=== PATIENT | female | born 1950 | race Caucasian/White ===

== ENCOUNTER → 2016-11-05 | Outpatient (CLI) | payer OTHER ==
[~2016-11-05] VITALS: Ht 152.4 cm; Wt 105.0 kg
[~2016-11-05] MED LIST: ADVIN25/60 INH; ALBINS/ INH; ALOEMIS NAE; ASPI81TA21 PO; ATOR10TA88 PO; AZIT250T PO; AZIT500T PO; CETI10TA10 PO; CMBIN INH; DIAZ5TAB3 PO; FLNIN NAE; GARLTAB3 PO; HYG/25 PO; LEVO100T7 PO; LORA-741 PO; METO50TA7 PO; NYSTATIN POWDER TOP; NYSTCRE11 TOP; OMEG10007 PO; OMEGCAP2 PO; OXGN; PERP1TAB11 PO; PRD20 PO; SNQ/25 PO; TIOTCAP INH; VILA1TAB2 PO; ZNTT/150 PO
[2016-11-05 13:07] VITALS: Ht 152.4 cm; Wt 105.0 kg
--- NOTE | 2016-11-05 13:47 | PAT Medication Instructions ---
"Service Date November 05, 2016. Current Home Medication List Albuterol Sulf (Proventil 0.083% 2.5MG/3ML), 2.5 MG INH Q2H PRN Aspirin Enteric Coated (Ecotrin Or Generic), 81 MG PO QAM Atorvastatin (Lipitor), 10 MG PO HS Azithromycin (Zithromax), 250 MG PO 3XWEEK Cetirizine Hcl (Zyrtec), 10 MG PO QAM Chlorthalidone (Hygroton), 25 MG PO QAM Doxepin (Sinequan), 25 MG PO HS Fish Oil ([place]-3), 1,000 MG PO QAM Fluticasone Prop/Salmeterol (Advair Diskus 250/50 60 Dose), 1 PUFF INH Q12 Fluticasone Propionate (Flonase Nasal [place]), 2 SPRAYS MAXI PRN Ipratropium/Albuterol (Combivent *), 2 PUFFS INH QID PRN for PRN Levothyroxine Sodium (Levothyroxine Sodium), 1 TAB PO QAM Lorazepam (Ativan), 0.5 MG PO HS PRN for RN Metoprolol Succ (Toprol Xl) (Toprol-Xl), 50 MG PO HS Nystatin/Triamcinolone (Mycogen || ), 1 DOSE TOP BID PRN for RN Oxygen (Oxygen), 2 LITERS NA HS Perphenazine (Trilafon), 4 MG PO HS Ranitidine (Zantac), 150 MG PO BID Vilazodone Hcl (Viibryd), 40 MG PO QAM [Garlic], 1 TAB PO QAM [Nystatin Powder], 1 DOSE TOP BID PRN for trousseau consultant Instructions For Your Scheduled Surgery - Continue as directed: Azithromycin (Zithromax), 250 MG PO 3XWEEK - Check with surgeon/epic ambulatory analysts for instructions: Aspirin Enteric Coated (Ecotrin Or Generic), 81 MG PO QAM - Hold the following medications 2 weeks prior to surgery: [Garlic], 1 TAB PO QAM Fish Oil ([place]-3), 1,000 MG PO QAM - Hold the following medications 24 hours prior to surgery: [Nystatin Powder], 1 DOSE TOP BID PRN for RN Nystatin/Triamcinolone (Mycogen || ), 1 DOSE TOP BID PRN for RN - Hold the following medications the morning of surgery: Ranitidine (Zantac), 150 MG PO BID Cetirizine Hcl (Zyrtec), 10 MG PO QAM Chlorthalidone (Hygroton), 25 MG PO QAM - Take the following medications the morning of surgery with a sip of water: Lorazepam (Ativan), 0.5 MG PO HS PRN for RN Levothyroxine Sodium (Levothyroxine Sodium), 1 TAB PO QAM Fluticasone Propionate (Flonase Nasal [place]), 2 SPRAYS MAXI PRN Ipratropium/Albuterol (Combivent *), 2 PUFFS INH QID PRN for PRN Fluticasone Prop/Salmeterol (Advair Diskus 250/50 60 Dose), 1 PUFF INH Q12 Albuterol Sulf (Proventil 0.083% 2.5MG/3ML), 2.5 MG INH Q2H PRN (bring with you to hospital morning of surgery) Vilazodone Hcl (Viibryd), 40 MG PO QAM - Take the following medications as scheduled the night before surgery: Ranitidine (Zantac), 150 MG PO BID Oxygen (Oxygen), 2 LITERS NA HS Metoprolol Succ (Toprol Xl) (Toprol-Xl), 50 MG PO HS Lorazepam (Ativan), 0.5 MG PO HS PRN for RN Fluticasone Propionate (Flonase Nasal [place]), 2 SPRAYS MAXI PRN Ipratropium/Albuterol (Combivent *), 2 PUFFS INH QID PRN for PRN Fluticasone Prop/Salmeterol (Advair Diskus 250/50 60 Dose), 1 PUFF INH Q12 Albuterol Sulf (Proventil 0.083% 2.5MG/3ML), 2.5 MG INH Q2H PRN Atorvastatin (Lipitor), 10 MG PO HS Doxepin (Sinequan), 25 MG PO HS' Perphenazine (Trilafon), 4 MG PO HS If you have any questions please call us at [phone] (Angélica Bills PA-C) or [phone] or [phone]"
--- NOTE | 2016-11-05 14:22 | DIAGNOSTIC IMAGING REPORT ---
CHEST PREADMISSION(PA/LAT) CLINICAL HISTORY: Preoperative evaluation. COMPARISON STUDY: Chest radiograph and chest CT December 09, 2013. FINDINGS: Lung volumes are normal. Lungs are clear. There is no pneumothorax or pleural effusion. Cardiac size is normal. Mediastinal contours are normal. There is no evidence of pulmonary edema. IMPRESSION: No acute cardiopulmonary findings. Electronically signed by: Vinny Dobbins M.D. 11/05/2016 2:21 PM Dictated Date/Time: 11/05/2016 2:20 PM
== END | disposition home or self-care (01) ==
LOC: C.RAD 08:00 → C.ACU 12:27 → EDSTATUS 11-26 14:46
PROVIDERS: ATTEND Surgery
DX: Z01.811 Encounter for preprocedural respiratory examination (principal)

== ENCOUNTER 2017-08-05 11:22 | Day surgery (SDC) | payer OTHER ==
[2017-07-23 09:47] VITALS: BMI 43.0
--- NOTE | 2017-07-23 10:32 | PAT Medication Instructions ---
"Service Date Jul 23, 2017. Current Home Medication List Albuterol Sulf (Proventil 0.083% 2.5MG/3ML), 2.5 MG INH Q2H PRN Aspirin Enteric Coated (Ecotrin Or Generic), 81 MG PO QAM Atorvastatin (Lipitor), 10 MG PO HS Azithromycin (Zithromax), 250 MG PO 3XWEEK Cetirizine Hcl (Zyrtec), 10 MG PO QAM Chlorthalidone (Hygroton), 25 MG PO QAM Doxepin (Sinequan), 25 MG PO HS Fish Oil ([place]-3), 1,000 MG PO QAM Fluticasone Prop/Salmeterol (Advair Diskus 250/50 60 Dose), 1 PUFF INH Q12 Fluticasone Propionate (Nasal) (Flonase Allergy Relief), 1 SPRAY MAXI QAM Home O2 Therapy (Oxygen), 2 LITERS NA HS Ipratropium-Albuterol (Combivent Respimat), 1 PUFFS INH QID PRN for SOB/Wheezing Levofloxacin (Levaquin), 750 MG PO UD PRN for RESCUE KIT Levothyroxine Sodium (Levothyroxine Sodium), 1 TAB PO QAM Lorazepam (Ativan), 0.5 MG PO HS PRN for RN Metformin Hcl (Glucophage), 1,000 MG PO BID Metoprolol Succ (Toprol Xl) (Toprol-Xl), 50 MG PO HS Nystatin/Triamcinolone (Mycogen || ), 1 DOSE TOP BID PRN for RN Olopatadine Hydrochloride (Pataday), 1 DROPS OP DAILY Perphenazine (Trilafon), 4 MG PO HS Prednisone (Deltasone), 1 TAB PO UD PRN for RESCUE KIT Ranitidine (Zantac), 150 MG PO BID Vilazodone Hcl (Viibryd), 40 MG PO QAM [Garlic], 1 TAB PO QAM [Nystatin Powder], 1 DOSE TOP BID PRN for manager philosophy Instructions For Your Scheduled Surgery Current Home Medication List -Contact your surgeon and prescriber for instructions: Aspirin Enteric Coated (Ecotrin Or Generic), 81 MG PO QAM -Continue as directed: Prednisone (Deltasone), 1 TAB PO UD PRN for RESCUE KIT Levofloxacin (Levaquin), 750 MG PO UD PRN for RESCUE KIT - Hold the following medications starting now: [Garlic], 1 TAB PO QAM Fish Oil ([place]-3), 1,000 MG PO QAM - Hold the following medications 24 hours prior to surgery: [Nystatin Powder], 1 DOSE TOP BID PRN for RN Nystatin/Triamcinolone (Mycogen || ), 1 DOSE TOP BID PRN for RN - Hold the following medications 48 hours prior to surgery: Metformin Hcl (Glucophage), 1,000 MG PO BID - Hold the following medications the morning of surgery: Cetirizine Hcl (Zyrtec), 10 MG PO QAM Chlorthalidone (Hygroton), 25 MG PO QAM - Take the following medications the morning of surgery with a sip of water: Vilazodone Hcl (Viibryd), 40 MG PO QAM Ranitidine (Zantac), 150 MG PO BID Olopatadine Hydrochloride (Pataday), 1 DROPS OP DAILY Levothyroxine Sodium (Levothyroxine Sodium), 1 TAB PO QAM Lorazepam (Ativan), 0.5 MG PO HS PRN for RN (if needed) Ipratropium-Albuterol (Combivent Respimat), 1 PUFFS INH QID PRN for SOB/ Wheezing (if needed, and bring it with you to the hospital) Fluticasone Prop/Salmeterol (Advair Diskus 250/50 60 Dose), 1 PUFF INH Q12 Fluticasone Propionate (Nasal) (Flonase Allergy Relief), 1 SPRAY MAXI QAM Azithromycin (Zithromax), 250 MG PO 3XWEEK Albuterol Sulf (Proventil 0.083% 2.5MG/3ML), 2.5 MG INH Q2H PRN (if needed) - Take the following medications as scheduled the night before surgery: Ranitidine (Zantac), 150 MG PO BID Perphenazine (Trilafon), 4 MG PO HS Olopatadine Hydrochloride (Pataday), 1 DROPS OP DAILY Metoprolol Succ (Toprol Xl) (Toprol-Xl), 50 MG PO HS Lorazepam (Ativan), 0.5 MG PO HS PRN for RN (if needed) Home O2 Therapy (Oxygen), 2 LITERS NA HS Ipratropium-Albuterol (Combivent Respimat), 1 PUFFS INH QID PRN for SOB/ Wheezing (if needed) Fluticasone Prop/Salmeterol (Advair Diskus 250/50 60 Dose), 1 PUFF INH Q12 Atorvastatin (Lipitor), 10 MG PO HS Doxepin (Sinequan), 25 MG PO HS Albuterol Sulf (Proventil 0.083% 2.5MG/3ML), 2.5 MG INH Q2H PRN (if needed) If you have any questions please call us at [phone] or [phone] or [phone]"
[~2017-08-05] VITALS: Ht 152.4 cm; Wt 100.2 kg
[~2017-08-05 11:22] MED LIST changes: -ALOEMIS NAE; +ATOR10TA82 PO; -ATOR10TA88 PO; +ATROPINE SULFATE 0.1 MG/ML 5ML SYR IV PRN; -AZIT500T PO; +CLINDAMYCIN IV 900 MG in DEXTROSE 5% 50ML IV SCH; -CMBIN INH; -DIAZ5TAB3 PO; +EpHEDrine SULFATE INJ 50 MG/ML AMP IV PRN; +FENTANYL CITRATE INJ 50 MCG/1 ML 2 ML VIAL IV PRN; -FLNIN NAE; +FLUT0.15 NAE; +HYDROmorphone INJ 1 MG/ML SYR IV PRN; +IPRA1AER2 INH; +LACTATED RINGER'S 1000ML 1,000 ML IV SCH; +LEVO1TAB35 PO; +METF1000 PO; -METO50TA7 PO; +METO50TA8 PO; -OMEGCAP2 PO; +ONDANSETRON INJ 2 MG/ML 2 ML VIAL IV PRN; -PERP1TAB11 PO; +PERP4TAB37 PO; -PRD20 PO; +PRED-603 PO; +PTDOPS OP; +RANI150T85 PO; -TIOTCAP INH; -ZNTT/150 PO
[2017-08-05 12:00] VITALS: BP 149/88; PULSE 97; TEMP 36.8; O2SAT 95; Ht 152.4 cm; Wt 100.2 kg
[2017-08-05] MEDS ORDERED: PROPOFOL IV EMULSION 10 MG/ML 20 ML VIAL IV ONE (13:42)
[2017-08-05] MEDS ORDERED: LIDOCAINE HCL 2% 2 ML VIAL (20MG/ML) ONE (13:42)
[2017-08-05] MEDS ORDERED: MIDAZOLAM HCL 1 MG/ML 2ML VIAL ONE (13:43)
[2017-08-05] MEDS ORDERED: FENTANYL CITRATE INJ 50 MCG/1 ML 2 ML VIAL ONE ×3 (13:43→16:54)
[2017-08-05] MEDS ORDERED: NEOSTIGMINE METHYLSULFATE 5 MG/5 ML SYR ONE (14:34)
[2017-08-05] MEDS ORDERED: ROCURONIUM BROMIDE 10 MG/ML 5 ML VIAL IV ONE (14:34)
[2017-08-05] MEDS ORDERED: GLYCOPYRROLATE INJ 0.2 MG/ML VIAL ONE ×2 (14:34)
--- NOTE | 2017-08-05 14:39 | History & Physical Bridge Note ---
H&P Re-Evaluation Bridge Note: I have examined the patient, reviewed the History & Physical and in the interval since the performance of the History & Physical I have noted the following changes of clinical significance: No changes noted
[2017-08-05] MEDS ORDERED: BUPIVACAINE 0.5 % 5 MG/1 ML MPF 30ML VIAL ONE (14:50)
[2017-08-05] MEDS ORDERED: PHENYLEPHRINE HCL INJ 10 MG/ML VIAL ONE (15:06)
[2017-08-05] MEDS ORDERED: ONDANSETRON INJ 2 MG/ML 2 ML VIAL ONE (15:13)
[2017-08-05] MEDS ORDERED: DEXAMETHASONE SOD INJ 4 MG/ML VIAL ONE (15:13)
[2017-08-05] MEDS ORDERED: EpHEDrine SULFATE INJ 50 MG/ML AMP ONE (15:25)
[2017-08-05] MEDS ORDERED: SODIUM CHLORIDE 0.9% 1000ML 1,000 ML IV SCH (16:20)
--- NOTE | 2017-08-05 16:20 | [facility] Post Operative Brief Note ---
Immediate Operative Summary Operative Date Aug 05, 2017. Pre-Operative Diagnosis Left inguinal hernia Post-Operative Diagnosis same as preop Procedure(s) Performed Left Inguinal Hernia repair with mesh Surgeon DR Rodriguez Uat Tester Surgeon(s) Francesca Tucker PA-C Estimated Blood Loss 5 ml Findings Consistent with Post-Op Diagnosis Specimens none per surgeon Drains None Anesthesia Type General Complication(s) none Disposition Disposition: Recovery Room / PACU
--- NOTE | 2017-08-05 16:24 | Discharge Instructions ---
Discharge Instructions Date of Service Aug 05, 2017. Admission Reason for Admission: Left Inguinal Hernia Discharge Discharge Diagnosis / Problem: Same Discharge Goals Goal(s): Decrease discomfort Activity Recommendations Activity Limitations: per Instructions/Follow-up section Lifting Limitations: no more than 10 pounds (for 6 weeks) Shower/Bathe: tomorrow (shower only) . Instructions / Follow-Up Instructions / Follow-Up ACTIVITY RECOMMENDATIONS: * Walk as much as possible. * No heavy lifting (>10 lbs.) for 2 weeks. SPECIAL CARE INSTRUCTIONS: * Ice to hernia repair site on and off until bedtime tonight. * May shower in 24 hours. Let water run over area and pat dry. * Leave steri strips on for one week. * Call the surgeon's office with any questions or concerns - (ex. temperature higher than 101 degrees F, excessive bleeding or pain). MEDICATIONS: Resume previous medications unless instructed otherwise by your surgeon. * Ibuprofen 600 mg every 6 hours with food * Percocet 1 every 4 hours, as needed for pain FOLLOW UP VISIT: If not already scheduled, please call the office to schedule a two week follow- up appointment. Office number Current Hospital Diet Patient's current hospital diet: Discharge Diet Recommended Diet: Diabetes Type 2 Diet Procedures Procedures Performed: Left Inguinal Hernia repair with mesh Pending Studies Studies pending at discharge: no Medical Emergencies . Who to Call and When: Medical Emergencies: If at any time you feel your situation is an emergency, please call 911 immediately. . Non-Emergent Contact Non-Emergency issues call your: Primary Care Provider, Surgeon Call Non-Emergent contact if: your pain is worsening, wound has increased redness, wound has increased pain . "Provider Documentation" section prepared by Fredo Rodriguez. . VTE Core Measure Inpt VTE Proph given/why not?: Treatment not indicated
[2017-08-05] MEDS ORDERED: ONDANSETRON INJ 2 MG/ML 2 ML VIAL IV PRN (16:30)
[2017-08-05] MEDS ORDERED: OXYCODONE/ACETAMINOPHEN 5-325 TAB PO PRN (16:30)
[2017-08-05] MEDS ORDERED: MoRPHine SULFATE 4 MG/ML 1 ML CARP\\VIAL IV PRN (16:30)
[2017-08-05] MEDS ORDERED: METOPROLOL TARTRATE 1 MG/ML VIAL ONE (16:53)
[2017-08-05] MEDS ORDERED: METOPROLOL TARTRATE 1 MG/ML VIAL IV STA (17:01)
--- NOTE | 2017-08-05 17:05 | Anesthesiology Progress Note ---
Anesthesia Post Op Note Date & Time Aug 05, 2017 at 17:05 Vital Signs Pain Intensity: 2 Vital Signs Past 12 Hours Date Time Temp Pulse Resp B/P (MAP) Pulse Ox O2 Delivery O2 Flow Rate FiO2 08/05/17 16:58 100 129/84 08/05/17 16:55 101 20 129/84 96 Oxymask 4 08/05/17 16:45 101 15 126/82 96 Oxymask 10 08/05/17 16:38 208/107 08/05/17 16:37 37.6 106 16 221/132 97 Oxymask 10 08/05/17 12:00 36.8 97 20 149/88 (108) 95 Room Air
[2017-08-05 17:35] VITALS: BP 118/86; PULSE 84; TEMP 37; O2SAT 97
[2017-08-05 17:55] VITALS: BP 127/67; PULSE 91; TEMP 37.3; O2SAT 98
[2017-08-05 18:25] VITALS: BP 129/76; PULSE 90; TEMP 37; O2SAT 97
[2017-08-05 18:55] VITALS: BP 141/59; PULSE 96; TEMP 36.9; O2SAT 92
--- NOTE | 2017-08-05 20:26 | OPERATIVE REPORT ---
DATE OF OPERATION: 08/05/2017 PREOPERATIVE DIAGNOSIS: Left inguinal hernia. POSTOPERATIVE DIAGNOSIS: Left direct inguinal hernia. PROCEDURE: Repair of left direct inguinal hernia with mesh. SURGEON: Fredo Rodriguez MD. GROOVER RUNNER: Francesca Tucker PA-C. FINDINGS: The patient had a direct inguinal hernia that was small, but it did involve the entire floor of the canal. There was no indirect component. TECHNIQUE: The patient was given a general anesthetic and the abdominal pannus was taped superiorly. The area was then prepped and draped in the usual sterile fashion. Left inguinal incision was made. It was carried down through multiple layers of adipose tissue until the external oblique could be identified. The external ring was identified. I could insert my finger under the external oblique fascia through the external ring and open the external oblique superolaterally. The hernia protruding tissue was easily identified. It was away from the ott of the canal and the floor of the canal. The round ligament was identified, clamped proximally, distally and divided. The ilioinguinal nerve was seen. That was also electively divided to avoid for chronic pain syndrome. The hernia sac and preperitoneal fat were placed back into their anatomic position and the transversalis was closed over them using a running 0 PDS. A piece of mesh was then placed in the floor of the canal and sewn to the anterior surface of the internal oblique medially, tissue over the pubic bone inferiorly and to the inguinal ligament. I could not identify the base of the inguinal ligaments oversewn to approximately the mid portion due to the patient's body habitus. That made it then more difficult to close the external oblique over the mesh, but that was accomplished for the proximal two-thirds of the external oblique. The deep subcutaneous tissue was then closed using a running 2-0 Vicryl. The superficial subcutaneous tissue was closed with running 3-0 Vicryl and skin was closed with 4-0 Monocryl in a running subcuticular fashion. Skin was anesthetized with 0.5% Marcaine. The estimated blood loss was 10 mL. Sponge, needle and instrument counts were correct prior to closure. The patient tolerated the surgical procedure without complication and was transferred to recovery. I attest to the content of the Intraoperative Record and any orders documented therein. Any exception s are noted below.
== END 2017-08-05 19:10 | disposition home or self-care (01) ==
LOC: C.ACU 11:22
PROVIDERS: ATTEND Surgery
DX: K40.90 Unilateral inguinal hernia, without obstruction or gangrene, not specified as recurrent (principal); E11.22 Type 2 diabetes mellitus with diabetic chronic kidney disease; I12.9 Hypertensive chronic kidney disease with stage 1 through stage 4 chronic kidney disease, or unspecified chronic kidney disease; N18.3 Chronic kidney disease, stage 3 (moderate); I25.10 Atherosclerotic heart disease of native coronary artery without angina pectoris; J44.9 Chronic obstructive pulmonary disease, unspecified; E66.01 Morbid (severe) obesity due to excess calories; I25.2 Old myocardial infarction; Z87.891 Personal history of nicotine dependence; Z88.6 Allergy status to analgesic agent; Z88.2 Allergy status to sulfonamides; Z88.1 Allergy status to other antibiotic agents; Z79.82 Long term (current) use of aspirin; Z79.899 Other long term (current) drug therapy; Z96.641 Presence of right artificial hip joint; Z98.41 Cataract extraction status, right eye; Z98.42 Cataract extraction status, left eye

== ENCOUNTER 2019-11-27 06:52 | Inpatient (IN) ==
--- NOTE | 2019-11-21 14:39 | Anesthesiology Consultation ---
Date of Service November 21, 2019 Assessment & Plan (1) Encounter for pre-operative examination: Per nursing phone assessment on 11/17: Travel screen negative. No known COVID-19 positive contacts. No current COVID-19 related symptoms. Patient scheduled for preop protocol COVID-19 testing 11/24. Awaiting results. - Check BSG AM DOS - S/P left inguinal hernia repair: Grade view 1, MAC#3, ETT 7.0 at [facility] - Preop labs out of date: will order CBC, BMP, coags for AM DOS Chart Review Chart Review: Acceptable Risk for Surgery (pending preop labs AM DOS + COVID test results) and Patient NOT seen in Pre Admission Testing History Surgery Operation Date: 11/27/19 08:40 Proposed Procedures p Left Lateral Total Hip Arthroplasty - Srini Mathur DO Height/Weight Height: 5 ft Weight: 89.9 kg Allergies Allergy/AdvReac Type Severity Reaction Status Date / Time Sulfa (Sulfonamide Allergy Unknown face Verified 11/18/19 15:13 Antibiotics) tongue lips swelling,HEADACHE amoxicillin AdvReac Unknown YEAST Verified 11/18/19 15:13 INFECTION clavulanic acid AdvReac Unknown YEAST Verified 11/18/19 15:13 INFECTION codeine AdvReac Unknown N/V Verified 11/18/19 15:13 Medications Home Medications Medication Instructions Recorded Confirmed Last Taken Vibryd 40 mg PO QAM 08/14/19 11/18/19 Unknown albuterol sulfate 2.5 mg INHALATION UD PRN 08/14/19 11/18/19 Unknown aspirin [Aspir-81] 81 mg PO DAILY 08/14/19 11/18/19 Unknown atorvastatin 10 mg PO HS 08/14/19 11/18/19 Unknown cetirizine 10 mg PO QAM 08/14/19 11/18/19 Unknown chlorthalidone 25 mg PO QAM 08/14/19 11/18/19 Unknown doxepin 25 mg PO HS 08/14/19 11/18/19 Unknown erythromycin 250 mg PO 3XWK 08/14/19 11/18/19 Unknown fluticasone propion-salmeterol 1 inh INHALATION BID 08/14/19 11/18/19 Unknown [Advair Diskus] fluticasone propionate 2 spray INTRANASAL QAM 08/14/19 11/18/19 Unknown garlic 1,000 mg PO DAILY 08/14/19 11/18/19 Unknown ipratropium-albuterol [Combivent 1 puff INHALATION UD PRN 08/14/19 11/18/19 Unknown Respimat] levofloxacin [Levaquin] 750 mg PO UD PRN 08/14/19 11/18/19 Unknown levothyroxine 125 mcg PO QAM 08/14/19 11/18/19 Unknown lorazepam 0.5 mg PO HS PRN 08/14/19 11/18/19 Unknown metformin 1,000 mg PO BID 08/14/19 11/18/19 Unknown metoprolol succinate 50 mg PO HS 08/14/19 11/18/19 Unknown omega 7-gfg-[id number]-fish oil [Fish Oil] 1 cap PO DAILY 08/14/19 11/18/19 Unknown perphenazine 2 mg PO HS 08/14/19 11/18/19 Unknown prednisone 20 mg PO UD PRN 08/14/19 11/18/19 Unknown trazodone 50 mg PO HS 08/14/19 11/18/19 Unknown famotidine 20 mg PO BID 08/19/19 11/18/19 Unknown Past Medical History Medical History (Updated 11/21/19 @ 14:45 by Angélica Bills) Acid reflux well controlled Anxiety and depression Arthritis Asthma mild, "well controlled and stable", rare inhaler use Degenerative disc disease Diabetes Dyslipidemia Emphysema/COPD stable Fatty liver History of heart attack "mild" (1996)- medically managed Hypertension Hypothyroidism Kidney disease stage III Nocturnal hypoxemia 2L O2 HS Obesity Sciatica Thyroid enlarged no dysphagia Past Family History Family History Mother Family history of diabetes mellitus Aunt Family history of diabetes mellitus Son Family history of colon cancer Past Surgical History Surgical History History of cardiac cath FOLLOWING HEART ATTACK, NO FINDINGS 1996 History of colonoscopy History of hernia repair History of hysterectomy History of left cataract surgery History of right cataract surgery History of right hip replacement Past Anesthesia History No Family Hx of Anesthesia Complications (except daughter (PONV)) and Other (desaturated with 2012 colonoscopy requiring O2 per records, has since been diagnosed with nocturnal hypoxemia (wears 2L O2 HS)) Social History Smoking Status: Former smoker tobacco type: cigarettes Hx Alcohol Use: No Hx Substance Use: No Testing Laboratory Results 08/19/19 WBC 7.59 H/H 14.7/41.5 PLATELETS 206 SODIUM POTASSIUM CHLORIDE CO2 BUN CREATININE GLUCOSE PT 11.1 PTT 25.5 INR 1.1 HGBA1C 6.0% 08/21/19 SODIUM 142 POTASSIUM 3.5 CHLORIDE 94 CO2 32 BUN 15 CREATININE 1.2 GLUCOSE 101 Electrocardiogram Date: 08/19/19 Findings: + NSR @ (74) and + no change from (January 08, 2014) Nonspecific ST abnormality. Chest X-Ray Date: 08/19/19 Findings: + NAD Chronic interstitial thickening is similar to previous. Echocardiogram Date: 12/10/13 EF: >70% RWMA: + none Other Findings: + LVH (Mild/concentric) Sinus tachycardia was present at 115 bpm. Left ventricular cavity size is small. Left ventricle is hyperdynamic. Stress Test Date: 01/02/17 Type: DSE Type: DSE Resting EF: 50 to 55% Resting LV Function: normal Resting RWMA: + none Valvular Disease: no significant valvular disease Stress EKG showed no evidence of ischemia. DSE is normal without left ventricular wall motion abnormalities or inducible ischemia. MPHR= 108%. Grade 1 diastolic dysfunction.
--- NOTE | 2019-11-25 07:28 | History & Physical Report ---
Date of Service November 25, 2019 Assessment & Plan (1) Osteoarthritis of left hip: We will proceed with a left lateral total hip arthroplasty. Postoperatively she will be started on aspirin for DVT prophylaxis and kept overnight in the hospital for postoperative medical management. She plans to use energy physical therapy upon discharge. Elsy is a low risk for hip replacement surgery without any major comorbidities. Present on Admission?: Yes History of Present Illness Chief Complaint: Primary osteoarthritis of the left hip Primary Care Provider: Dominga Barron DO Elsy is a pleasant 68-year-old female who is been having a several year history of increasing left hip and groin pain. X-rays and clinical examination have been diagnostic for advanced osteoarthritis of the left hip. She does have a history of a right hip replacement done by Dr. Ball in 2003. She has done well with that. She has elected to proceed with a left lateral total hip arthroplasty. Allergies Allergy/AdvReac Type Severity Reaction Status Date / Time Sulfa (Sulfonamide Allergy Severe face Verified 11/24/19 11:58 Antibiotics) tongue lips swelling,HEADACHE amoxicillin AdvReac Intermediate YEAST Verified 11/24/19 11:58 INFECTION clavulanic acid AdvReac Intermediate YEAST Verified 11/24/19 11:58 INFECTION codeine AdvReac Mild N/V Verified 11/24/19 11:58 Home Medications Home Medications Medication Instructions Recorded Confirmed Type Vibryd 40 mg PO QAM 08/14/19 11/24/19 History albuterol sulfate 2.5 mg INHALATION UD PRN 08/14/19 11/24/19 History aspirin [Aspir-81] 81 mg PO DAILY 08/14/19 11/24/19 History atorvastatin 10 mg PO HS 08/14/19 11/24/19 History cetirizine 10 mg PO QAM 08/14/19 11/24/19 History chlorthalidone 25 mg PO QAM 08/14/19 11/24/19 History doxepin 25 mg PO HS 08/14/19 11/24/19 History erythromycin 250 mg PO 3XWK 08/14/19 11/24/19 History fluticasone propion-salmeterol 1 inh INHALATION BID 08/14/19 11/24/19 History [Advair Diskus] fluticasone propionate 2 spray INTRANASAL QAM 08/14/19 11/24/19 History garlic 1,000 mg PO DAILY 08/14/19 11/24/19 History ipratropium-albuterol [Combivent 1 puff INHALATION UD PRN 08/14/19 11/24/19 History Respimat] levofloxacin [Levaquin] 750 mg PO UD PRN 08/14/19 11/24/19 History levothyroxine 125 mcg PO QAM 08/14/19 11/24/19 History lorazepam 0.5 mg PO HS PRN 08/14/19 11/24/19 History metformin 1,000 mg PO BID 08/14/19 11/24/19 History metoprolol succinate 50 mg PO HS 08/14/19 11/24/19 History omega 5-xhg-nus-fish oil [Fish Oil] 1 cap PO DAILY 08/14/19 11/24/19 History perphenazine 2 mg PO HS 08/14/19 11/24/19 History prednisone 20 mg PO UD PRN 08/14/19 11/24/19 History trazodone 50 mg PO HS 08/14/19 11/24/19 History famotidine 20 mg PO BID 08/19/19 11/24/19 History Past Med/Surg History Medical History Acid reflux well controlled Anxiety and depression Arthritis Asthma mild, "well controlled and stable", rare inhaler use Degenerative disc disease Diabetes Dyslipidemia Emphysema/COPD stable Fatty liver History of heart attack "mild" (1996)- medically managed Hypertension Hypothyroidism Kidney disease stage III Nocturnal hypoxemia 2L O2 HS Obesity Sciatica Thyroid enlarged no dysphagia Surgical History History of cardiac cath FOLLOWING HEART ATTACK, NO FINDINGS 1996 History of colonoscopy History of hernia repair History of hysterectomy History of left cataract surgery History of right cataract surgery History of right hip replacement Family History Mother Family history of diabetes mellitus Aunt Family history of diabetes mellitus Son Family history of colon cancer Social History Preferred Language: Montene[place]in Communication Ability: Effective Pockets And Pieces Necktie Operator Required: No Beliefs That Will Affect Care: None Current Living Situation: Alone Feels Safe at Home: Yes Smoking Status: Former smoker Tobacco Type: cigarettes ; Second Hand Exposure: No ; Hx Alcohol Use: No Hx Substance Use: No Review of Systems Review of Systems: All systems reviewed & are unremarkable except as noted in HPI & below Physical Exam Constitutional: WD/WN, vitals as above Eyes: PERRL, conjunctivae normal, anicteric sclerae ENMT: external ear and nose normal, oropharynx normal Neck: trachea midline, no thyromegaly Respiratory: normal respiratory effort Cardiovascular: RRR, no murmur, no edema Gastrointestinal (Abdomen): normal bowel sounds, soft, nontender, no hepatosplenomegaly Musculoskeletal: Physical examination of the left hip reveals decreased range of motion with flexion, internal and external rotation. There is significant groin pain with forced internal rotation of the hip his leg lengths are essentially equal. Psychiatric: A+Ox3, euthymic affect Results & Data Results & Data ([facility]) Diagnostic Findings Radiographs of the left hip and pelvis demonstrate advanced osteoarthritis with joint space narrowing osteophyte formation and [id number]-[id number] articulation. PG Care Time/CCT Total # of Minutes Spent Total Time Spent with Patient: Total time spent is greater than 50% in coordination of care (as documented) at patient's floor/unit and/or counseling patient: Coding Level of Care Code 60499 Initial Inpt Care Lvl 3 Diagnoses Osteoarthritis of left hip M16.12
--- NOTE | 2019-11-27 06:51 | History & Physical Bridge Note ---
Date of Service November 27, 2019 History & Physical Bridge Note I have examined the patient, reviewed the History & Physical and in the interval since the performance of the History & Physical I have noted the following changes of clinical significance: no changes noted
[~2019-11-27 06:52] MED LIST changes: +ACETAMINOPHEN 500 MG TAB PO SCH; -ADVIN25/60 INH; -ALBINS/ INH; -ASPI81TA21 PO; -ATOR10TA82 PO; -ATROPINE SULFATE 0.1 MG/ML 5ML SYR IV PRN; -AZIT250T PO; +BUPIVACAINE 0.5 % 5 MG/1 ML PF 10ML VIAL ONE; +CEFAZOLIN 2000MG 2,000 MG/15 ML SYR IV SCH; -CETI10TA10 PO; -CLINDAMYCIN IV 900 MG in DEXTROSE 5% 50ML IV SCH; -EpHEDrine SULFATE INJ 50 MG/ML AMP IV PRN; +FAMOTIDINE 20 MG TAB PO SCH; -FENTANYL CITRATE INJ 50 MCG/1 ML 2 ML VIAL IV PRN; -FLUT0.15 NAE; +GABAPENTIN 300 MG CAP PO SCH; -GARLTAB3 PO; -HYDROmorphone INJ 1 MG/ML SYR IV PRN; -HYG/25 PO; -IPRA1AER2 INH; -LACTATED RINGER'S 1000ML 1,000 ML IV SCH; -LEVO100T7 PO; -LEVO1TAB35 PO; -LORA-741 PO; +LR 60ML/HR IV SCH; -METF1000 PO; -METO50TA8 PO; -NYSTATIN POWDER TOP; -NYSTCRE11 TOP; -OMEG10007 PO; -ONDANSETRON INJ 2 MG/ML 2 ML VIAL IV PRN; -OXGN; -PERP4TAB37 PO; -PRED-603 PO; -PTDOPS OP; -RANI150T85 PO; +ROPIVACAINE 0.5% HCL/PF 150 MG, BUPIVACAINE 0.5% MPF 30 ML, EPINEPHrine 30MG/30ML (OR U... INSTIL SCH; -SNQ/25 PO; +TRANEXAMIC ACID 1,000 MG **IV Intra-op IV SCH; +TRANEXAMIC ACID 1,000 MG **IV Pre-op IV SCH; -VILA1TAB2 PO; +dexAMETHasone 4 MG TAB PO SCH
[2019-11-27] MEDS ORDERED: PROPOFOL IV EMULSION 10 MG/ML 20 ML VIAL IV ONE (07:03)
[2019-11-27] MEDS ORDERED: LIDOCAINE HCL 2% 2 ML VIAL/AMP(20MG/ML) INFIL ONE (07:03)
[2019-11-27] MEDS ORDERED: MIDAZOLAM HCL 1 MG/ML 2ML VIAL ONE (07:03)
[2019-11-27] MEDS ORDERED: fentaNYL citrate 100 MCG/2 ML VIAL ONE (07:04)
[2019-11-27 07:26] LABS: Basophils # (auto) 0.03 K/uL (0-0.2); Basophils % (auto) 0.4 %; Eosinophils # (auto) 0.33 K/uL (0-0.5); Eosinophils % (auto) 4.1 %; Hematocrit (blood only) 42.4 % (37-47); Hemoglobin 14.9 g/dL (12.0-16.0); Immature Granulocytes # (auto) 0.02 K/uL (0.00-0.02); Immature Granulocytes % (auto) 0.3 %; Lymphocytes # (auto) 2.79 K/uL (1.2-3.4); Lymphocytes % (auto) 35.1 %; Mean Corpuscular Hemoglobin 31.4 pg (25-34); Mean Corpuscular Volume 89.5 fL (80-100); Monocytes % (auto) 8.8 %; Neutrophils # (auto) 4.09 K/uL (1.4-6.5); Neutrophils % (auto) 51.3 %; Platelet Count 220 K/uL (130-400); RDW Coefficient of Variation 13.2 % (11.5-14.5); RDW Standard Deviation 43.3 fL (36.4-46.3); Red Blood Count 4.74 M/uL (4.2-5.4); White Blood Count 7.96 K/uL (4.8-10.8)
[2019-11-27 07:30] LABS: Mean Corpuscular Hgb Conc 35.1 g/dL (32-36)
[2019-11-27 07:38] LABS: Partial Thromboplastin Ratio 0.9; Partial Thromboplastin Time 25.1 Seconds (21.0-31.0); Prothrombin Time 10.9 Seconds (9.0-12.0)
[2019-11-27 07:45] LABS: BUN Creatinine Ratio 9.2 (10-20); Calcium 10.2 mg/dl (8.5-10.1); Creatinine Clr Calc Pharmacy 43.5 ml/min; Est GFR (African American) 52.3; Est GFR (Non-African American) 45.2; Potassium 3.2 mmol/L (3.5-5.1)
[2019-11-27] MEDS ORDERED: ORTHO JOINT ANESTHETIC ONE (08:23)
[2019-11-27] MEDS ORDERED: ATROPINE SULFATE 0.1 MG/ML 10ML SYR IV PRN (08:56)
[2019-11-27] MEDS ORDERED: ePHEDrine sulfate 50 MG/ML AMP IV PRN (08:56)
--- NOTE | 2019-11-27 10:04 | XRay Report ---
XR hip LT 1V CLINICAL HISTORY: LT HIP FILM TO BE DONE IN OR 6/CHECK FOR PROPER FIT COMPARISON STUDY: None. FINDINGS: Intraoperative study for a left total hip arthroplasty demonstrates an acetabular cup and a femoral spacer. The hardware appears intact. No fracture or dislocation. IMPRESSION: Intraoperative study for a left total hip arthroplasty. ACT 112: Negative or not required by law. Electronically signed by: Pablo Gordon M.D. 11/27/2019 10:03 AM
--- NOTE | 2019-11-27 10:35 | Operative Report ---
PG Post Operative Report Pre & Post Diagnosis Operation Date: 11/27/19 08:40 Pre-Op Diagnosis: LEFT HIP DEGENERATIVE JOINT DISEASE Post-Op Diagnosis: LEFT HIP DEGENERATIVE JOINT DISEASE I identified the patient and participated in the time-out.: Yes Procedure Operation Date: 11/27/19 08:40 Actual Procedures p Left Lateral Total Hip Arthroplasty(Left) - Srini Mathur DO Surgeon Srini Mathur DO [employer] Srini Bonner PAC Estimated Blood Loss 250 Findings Consistent with Post-Op Diagnosis Specimens Left femoral head Complications none Disposition Disposition: Recovery Room Indications Lara is a pleasant 68-year-old female who presented my office with complaints of chronic increasing left hip and groin pain. X-rays and clinical examination were diagnostic for osteoarthritis of the left hip. After failing conservative treatment, she elected proceed with a left total hip arthroplasty. Description of Procedure Implants used I used a Biomet Taperloc total hip arthroplasty system with a size 9 high offset micro Taperloc stem, a 48 mm G7 cup with a 25mm screw, an E1 polyethylene liner, a 32 mm ceramic head with a 0 neck. Arnold arrived at the hospital for the above procedure. She was seen in the preoperative holding area and the operative extremity was identified and signed. She was given a spinal anesthetic, a preoperative antibiotic, and TXA. She was then taken back to the operating room and laid on the table in the supine position. She was given basic sedation. She was then placed in a lateral decubitus position. The hip was then prepped and draped in sterile fashion. A timeout was done and the patient and the operative extremity was properly identified. A lateral approach was used. A curvilinear incision was made directly over the greater trochanter. Dissection was taken down to the fascia. The fascia was incised. The anterior third of the abductors were then tenotomized off the greater trochanter. The capsule was excised. The femoral neck was exposed. The femoral neck was then resected. And the femoral head was removed. The acetabulum was then exposed. Time was spent doing a complete circumferential labral release. Sequential reaming of the acetabulum up to a size 47 reamer was done. A 48 mm G7 cup was then impacted into place. A single 25 mm screw was placed. The wound was then irrigated. The surrounding soft tissues were then injected with 100 cc of an orthopedic pain control cocktail. A 32 mm liner was then snapped into place. The proximal femur was then exposed. Sequential broaching up to a size 9 broach was done. A high offset neck and a 0 head were then attached. The hip was then reduced. A single flat plate fluoroscopic image showed the femoral implant to be anatomic size. The hip was then dislocated. The broach was removed. The final size 9 high offset micro-stem was then impacted into place. A 32 mm ceramic head with a 0 neck was then impacted onto the femoral stem. The hip was then reduced. The hip was brought through a full range of motion and felt to be stable. The wound was then irrigated and a 3-minute Betadine lavage was done. The abductors were then tenodesed back to the greater trochanter with transosseous FiberWire sutures and side to side sutures. The IT band was then repaired. The deep fat layer was closed with #1 Vicryl. Skin was closed with 2-0 Vicryl and nahum. A Sumi VAC dressing was placed. She was then transferred to a hospital bed and taken to the postanesthesia care unit in stable condition. She tolerated the procedure well. Srini Bonner PA-C, was present for the entire procedure. He was critical for patient positioning, prepping, draping, retraction exposure, wound closure and application of sterile dressing. I attest to the content of the Intraoperative Record and any orders documented therein. Any exceptions are noted below.
--- NOTE | 2019-11-27 11:27 | XRay Report ---
AP PELVIS, CROSSTABLE LATERAL LEFT HIP History: Left total hip arthroplasty. Degenerative arthritis. Postop. FINDINGS: The patient is status post a left total hip arthroplasty. The hardware is intact. No fractu re or dislocation. Skin nahum are in place. Prior right total hip arthroplasty. IMPRESSION: Left total hip arthroplasty. No evidence for hardware complication. ACT 112: Negative or not required by law. Electronically signed by: Pablo Gordon M.D. 11/27/2019 11:25 AM
[2019-11-27] MEDS ORDERED: ALBUMIN 5% 250 ML IV SCH (12:45)
[2019-11-27] MEDS ORDERED: ALBUMIN HUMAN 5% 12.5 GM/250 ML VIAL IV ONE (12:46)
[2019-11-27] MEDS ORDERED: HYDROmorphone INJ 0.5 MG/0.5 ML SYR IV PRN (14:17)
[2019-11-27] MEDS ORDERED: IPRATROPIUM BROMIDE/ALBUTEROL respimat INH INH PRN (14:17)
[2019-11-27] MEDS ORDERED: levoFLOXacin 750 MG TAB PO PRN (14:17)
[2019-11-27] MEDS ORDERED: bisacodyL 10 MG SUPP PR PRN (14:17)
[2019-11-27] MEDS ORDERED: METOCLOPRAMIDE HCL INJ 5 MG/ML 2 ML VIAL IV PRN (14:17)
[2019-11-27] MEDS ORDERED: SODIUM CHLORIDE 0.9% 1000ML 1,000 ML IV SCH (14:17)
[2019-11-27] MEDS ORDERED: predniSONE 20 MG TAB PO PRN (14:17)
[2019-11-27] MEDS ORDERED: ONDANSETRON INJ 2 MG/ML 2 ML VIAL IV PRN (14:17)
[2019-11-27] MEDS ORDERED: ALBUTEROL 0.5% NEB SOLN 2.5 MG/0.5 ML VIAL INH PRN (14:17)
[2019-11-27] MEDS ORDERED: MAGNESIUM HYDROXIDE SUSP 30 ML UDC PO PRN (14:17)
[2019-11-27] MEDS ORDERED: NALOXONE HCL 0.4 MG/1 ML VIAL/CARP IV PRN (14:17)
--- NOTE | 2019-11-27 14:32 | Anesthesiology Progress Note ---
Date of Service November 27, 2019 Anesthesia Post Procedure Vital Signs Vital Signs: Temp Pulse Pulse Resp BP BP Pulse Ox 11/27/19 13:40 94 H 15 91/66 L 98 11/27/19 13:30 90 13 91/58 L 98 11/27/19 13:20 91 H 14 97/68 L 99 11/27/19 13:10 91 H 20 98/78 L 100 11/27/19 13:00 36.2 C L 90 14 95/59 L 98 11/27/19 12:50 89 12 86/54 L 99 11/27/19 12:40 89 15 81/44 L 98 11/27/19 12:30 80 14 60/42 L 98 11/27/19 12:20 79 13 66/53 L 99 11/27/19 12:10 80 12 66/46 L 99 11/27/19 12:00 79 12 72/56 L 98 11/27/19 11:50 80 12 93/65 L 100 11/27/19 11:40 80 12 83/44 L 100 11/27/19 11:30 79 12 100/67 100 11/27/19 11:20 85 13 105/87 100 11/27/19 11:10 82 13 100/77 100 11/27/19 11:03 36.5 C 86 13 88/61 L 99 11/27/19 07:50 37.2 C 86 20 149/100 H 97 Pain Intensity Left Hip: Pain Intensity: 2 Transfer of Care Handoff Completed per policy Notes Mental Status: alert / awake / arousable and participated in evaluation Nausea / Vomiting: adequately controlled Pain: adequately controlled Airway Patency, RR, SpO2: stable & adequate BP & HR: stable & adequate Hydration State: stable & adequate Neuraxial Anesthesia: was administered and sensory block is resolving Anesthetic Complications: no major complications apparent and Pt Satisfied with anesthetic care
[2019-11-27] MEDS ORDERED: PHARMACY GLYCEMIC MGMT CONSULT PRN (14:39)
--- NOTE | 2019-11-27 14:39 | Pharmacy Report ---
Glycemic Control Consultation - Date of Service November 27, 2019 - Scope Scope: Glycemic Pharmacist consulted for glycemic control and to write orders per [facility] inpatient glycemic control protocol. - Objective Weight: 89.9 kg Accuchecks BSG (last 24hrs): 11/27/19 11/27/19 11/27/19 07:18 07:42 11:07 Glucose 144 H POC Glucose 156 H 168 H Laboratory Data (last 24hrs): 11/27/19 07:18 Potassium 3.2 L Carbon Dioxide 33 H Anion Gap 7.0 Creatinine 1.22 H Est Cr Clr Drug Dosing 43.5 HbA1c: 6% on 08/19/19 - Recent Pertinent Medications Outpatient Anti-diabetic Regimen: * metformin 1,000mg PO BID Risk Factors for Insulin Resistance: * Steroids * Recent Surgery * Diet - Assessment & Plan Assessment & Plan: ASSESSMENT: * 68yo T2DM female with presumed excellent outpatient control per recent A1c. A1c is slightly outdated (90+ days) therefore, will re-order with AM labs * Pt is maintained on oral antidiabetic agents as an outpatient * Oral agents are not recommended for inpatient use d/t drug interactions, changing PO intake, and difficulty titrating for acute hyper/hypoglycemia. * Will hold oral agents for admission and utilize SQ basal bolus insulin regimen which is the recommended regimen for inpatient glycemic control. * Will initiate weight based insulin dosing for insulin martin patient and titrate based on BSG trends. * Will utilize a one time dose of NPH to cover steroid induced hyperglycemia from dexamethasone 8mg PO preop - 24 hr insulin likely not needed based on A1c. PLAN FOR INPATIENT GLYCEMIC CONTROL: * Holding outpatient oral diabetes medications * ADA recommends re-initiating outpatient oral agents 1-2 days prior to discharge if/when appropriate if they were held on admission. Will most likely resume metformin tomorrow evening if labs WNL and PO intake adequate * Basal insulin * NPH 18 units (0.2 units/kg) SQ x 1 dose * Bolus insulin * NovoLog per scale ACHS or Q6hrs while NPO * Goal Range: Low 110 mg/dL - High 140 mg/dL * Correction Factor: 30 mg/dL/unit * Nutritional / Prandial insulin per carb ratio of 1 unit per 10 grams CHO consumed * Please note that the plan above was derived based on current level of insulin resistance and hospital stress. These recommendations are appropriate for inpatient admission only. Plan of care upon discharge will need to be reassessed to avoid potential outpatient hypo/hyperglycemia. Thank you.
[2019-11-27] MEDS: KETOROLAC TROMETHAMINE 15 MG/ML VIAL IV SCH ×2 (15:03→21:31)
[2019-11-27] MEDS: ACETAMINOPHEN 500 MG TAB PO SCH ×2 (15:03→21:57)
[2019-11-27] MEDS ORDERED: GLUCAGON FOR INJ 1 MG VIAL IM PRN (15:15)
[2019-11-27] MEDS ORDERED: CARBOHYDRATES FOR HYPOGLYCEMIA PO PRN (15:15)
[2019-11-27] MEDS ORDERED: DEXTROSE 50% 50 ML SYRINGE IV PRN (15:15)
[2019-11-27] MEDS ORDERED: GLUCOSE 10 TABS/TUBE PO PRN (15:15)
[2019-11-27] MEDS ORDERED: NovoLIN-N (NPH) PER UNIT CHARGE SQ ONE (15:15)
[2019-11-27] MEDS ORDERED: GLUCOSE 40% GEL 15 GM TUBE PO PRN (15:15)
[2019-11-27] MEDS ORDERED: SODIUM CHLORIDE 0.9% 1000ML 1,000 ML IV ONE (16:28)
[2019-11-27] MEDS ORDERED: INSULIN ASPART 100 UNITS/ML 3 ML PEN SC SCH ×2 (16:30→16:46)
[2019-11-27] MEDS ORDERED: ALBUT/IPRATROP 3MG/0.5MG NEB 3 ML VIAL INH PRN (16:30)
--- NOTE | 2019-11-27 16:46 | Hospitalist Consultation ---
Date of Consultation November 27, 2019 Assessment & Plan (1) Hypotensive episode: This is a 68-year-old female with PMH of DM II, hypothyroidism, HTN, h/o OK, HLD, CKD III, COPD, GERARDO and other medical problems listed below who is POD#0 s/p L [place] by Dr. Mathur who became hypotensive this afternoon following surgery. -Endorses history of refractory hypotension following surgical procedures -Possible side effect of gen anesthesia, dehydration -Pre-op hgb of 14.9 with EBL of 250ml today, so likely not due to acute blood loss -BP 76/50 during time of evaluation on 2 machine and 1 manual reads -Giving 1 L NSS bolus, will repeat BP afterwards -EKG with NSR, no acute changes -CBC, BMP and Mag level pending -Holding chlorthalidone and Toprol -Continue monitoring closely (2) History of total left hip arthroplasty: POD#0 s/p L [place] by Dr. Mathur -Per ortho for pain control, wound care, anticoagulation and activities -Monitor H&H, continue incentive spirometry, PT/OT when appropriate (3) Diabetes mellitus, type II: A1c of 6.0 in 09/03 -Hold home agents -Glycemic consult placed by primary service -BSG AC HS (4) COPD (chronic obstructive pulmonary disease): At baseline. Continue home inhalers, Erythromycin MoWeFr (5) Nocturnal hypoxemia: 2L O2 HS (6) History of heart attack: H/o OK in 1996. Medically managed with aspirin, statin and beta hector. Will resume beta hector once BP improves (7) Hypertension: Currently hypotensive - holding home medications (8) Hypothyroidism: Continue levothyroxine (9) Anxiety and depression: Continue Perphenazine and Doxepin. Vibryd not on formulary and patient did not bring. Holding Ativan DVT Ppx: Aspirin BID PCP: Beatrice Dispo: Per primary service Patient seen in collaboration with Dr. Rousseau. Please see addendum. Supervising Physician Co-Signing Physician Notes 68-year-old female with PMH of DM II, hypothyroidism, HTN, h/o OK, HLD, CKD III, COPD, GERARDO and other medical problems listed below who is POD#0 s/p L [place] by Dr. Mathur who has been hypotensive since surgery. Patient seen and evaluated with Ruth Michel PA-C. Refer to her note for detailed history. Patient has been asymptomatic despite low blood pressure Denied any complaints at this time Gave 1L bolus with improvement of BP Stat labs significant for Hb of 9.3 (5g drop since Hb this AM), Mg of 1.3, Cr of 1.38 (baseline 1.2) EKG was NSR, no ischemic changes. -Post op hypotension -Post op anemia ?Acute blood loss Currently asymptomatic Continue IVF bolus Repeat Hb Type and cross Plan to transfuse if still hypotensive with low Hb Hold all antihypertensives or BP lowering meds Will continue to reassess. If BP is not responsive, will transfer to PCU/ICU and consult monologist History of Present Illness Reason for Consultation: Postop hypotension Attending Physician: Srini Mathur DO History of Present Illness This is a 68-year-old female with PMH of DM II, hypothyroidism, HTN, h/o OK, HLD, CKD III, COPD, GERARDO and other medical problems listed below who is POD#0 s/p L [place] by Dr. Mathur. Patient has been hypotensive post-operatively with most recent BP of 76/50 and the hospitalist service was consulted to manage hypotension. Patient is asymptomatic, denying lightheadedness, visual changes, chest pain, palpitations or shortness of breath. States that she has had low blood pressure following previous surgeries before under general anesthesia and that it improves with time. Also states she required a blood transfusion following previous hip replacement. Received 1 L of fluid this morning prior to surgery and is currently receiving NSS at 100 ml/hr. Denies any fever, chills, headache, confusion, nausea, vomiting, abdominal pain, dysuria, diarrhea or constipation. Denies taking any medication this morning prior to surgery. PCP is Dr. Barron. Allergies Allergy/AdvReac Type Severity Reaction Status Date / Time Sulfa (Sulfonamide Allergy Severe face Verified 11/27/19 07:40 Antibiotics) tongue lips swelling,HEADACHE amoxicillin AdvReac Intermediate YEAST Verified 11/27/19 07:40 INFECTION clavulanic acid AdvReac Intermediate YEAST Verified 11/27/19 07:40 INFECTION codeine AdvReac Mild N/V Verified 11/27/19 07:40 Home Medications Home Medications Medication Instructions Recorded Confirmed Type Vibryd 40 mg PO QAM 08/14/19 11/27/19 History albuterol sulfate 2.5 mg INHALATION UD PRN 08/14/19 11/27/19 History aspirin [Aspir-81] 81 mg PO DAILY 08/14/19 11/27/19 History atorvastatin 10 mg PO HS 08/14/19 11/27/19 History cetirizine 10 mg PO QAM 08/14/19 11/27/19 History chlorthalidone 25 mg PO QAM 08/14/19 11/27/19 History doxepin 25 mg PO HS 08/14/19 11/27/19 History erythromycin 250 mg PO MOWEFR@0900 08/14/19 11/27/19 History fluticasone propion-salmeterol 1 inh INHALATION BID 08/14/19 11/27/19 History [Advair Diskus] fluticasone propionate 2 spray INTRANASAL QAM 08/14/19 11/27/19 History garlic 1,000 mg PO DAILY 08/14/19 11/27/19 History ipratropium-albuterol [Combivent 1 puff INHALATION QID PRN 08/14/19 11/27/19 History Respimat] levofloxacin [Levaquin] 750 mg PO UD PRN 08/14/19 11/27/19 History levothyroxine 125 mcg PO QAM 08/14/19 11/27/19 History lorazepam 0.5 mg PO HS PRN 08/14/19 11/27/19 History metformin 1,000 mg PO BID 08/14/19 11/27/19 History metoprolol succinate 50 mg PO HS 08/14/19 11/27/19 History omega 0-hmc-nzp-fish oil [Fish Oil] 1 cap PO DAILY 08/14/19 11/27/19 History perphenazine 2 mg PO HS 08/14/19 11/27/19 History prednisone 20 mg PO UD PRN 08/14/19 11/27/19 History trazodone 50 mg PO HS 08/14/19 11/27/19 History famotidine 20 mg PO BID 08/19/19 11/27/19 History Patient History Medical History (Updated 11/27/19 @ 17:49 by Ruth Michel PA-C) Acid reflux well controlled Anxiety and depression Arthritis Asthma mild, "well controlled and stable", rare inhaler use COPD (chronic obstructive pulmonary disease) Degenerative disc disease Diabetes mellitus, type II Dyslipidemia Fatty liver History of heart attack 1996- medically managed Hypertension Hypotensive episode Hypothyroidism Nocturnal hypoxemia 2L O2 HS Obesity Sciatica Thyroid enlarged no dysphagia Surgical History History of cardiac cath FOLLOWING HEART ATTACK, NO FINDINGS 1996 History of colonoscopy History of hernia repair History of hysterectomy History of left cataract surgery History of right cataract surgery History of right hip replacement History of total left hip arthroplasty (~11/2019) Family History Mother Family history of diabetes mellitus Aunt Family history of diabetes mellitus Son Family history of colon cancer Social History Preferred Language: Mexican Communication Ability: Effective Remote Coders Required: No Beliefs That Will Affect Care: None Current Living Situation: Alone Other Information That Helps Us Care for You: Yes (has in [facility], lives at skilled nursing facility by [facility]) Feels Safe at Home: Yes Safety Concerns: Feels Safe At This Time Smoking Status: Former smoker Tobacco Type: cigarettes ; Do You Dip or Chew Tobacco: No ; Smoking End Date: quit 8 yrs ago ; Second Hand Exposure: No ; Tobacco Cessation Education Requested by Patient: No Hx Alcohol Use: No Hx Substance Use: No Review of Systems Review of Systems: At least ten systems reviewed and negative except as noted in the HPI. Physical Exam Physical Exam: Please see Dr. Rousseau's addendum for physical exam. Results & Data Results & Data ([facility]) Vital Signs (Past 12 Hours) Vital Signs Temp Pulse Pulse Resp BP BP Pulse Ox 11/27/19 16:12 36.7 C 95 H 16 94/61 L 93 11/27/19 15:07 94 H 16 93/65 L 92 11/27/19 14:48 36.7 C 96 H 14 71/50 L 92 11/27/19 14:10 36.8 C 96 H 18 142/67 H 92 11/27/19 13:40 94 H 15 91/66 L 98 11/27/19 13:30 90 13 91/58 L 98 11/27/19 13:20 91 H 14 97/68 L 99 11/27/19 13:10 91 H 20 98/78 L 100 11/27/19 13:00 36.2 C L 90 14 95/59 L 98 11/27/19 12:50 89 12 86/54 L 99 11/27/19 12:40 89 15 81/44 L 98 11/27/19 12:30 80 14 60/42 L 98 11/27/19 12:20 79 13 66/53 L 99 11/27/19 12:10 80 12 66/46 L 99 11/27/19 12:00 79 12 72/56 L 98 11/27/19 11:50 80 12 93/65 L 100 11/27/19 11:40 80 12 83/44 L 100 11/27/19 11:30 79 12 100/67 100 11/27/19 11:20 85 13 105/87 100 11/27/19 11:10 82 13 100/77 100 11/27/19 11:03 36.5 C 86 13 88/61 L 99 11/27/19 07:50 37.2 C 86 20 149/100 H 97 Laboratory Results Short CBC 11/27/19 11/27/19 Range/Units 07:18 17:31 WBC 7.96 11.57 H (4.8-10.8) K/uL Hgb 14.9 9.3 L D (12.0-16.0) g/dL Hct 42.4 27.1 L (37-47) % Plt Count 220 180 (130-400) K/uL BMP 11/27/19 07:18 Sodium 134 L Potassium 3.2 L Chloride 94 L Carbon Dioxide 33 H BUN 11 Creatinine 1.22 H Glucose 144 H Calcium 10.2 H
[2019-11-27 17:44] LABS: Basophils # (auto) 0.01 K/uL (0-0.2); Basophils % (auto) 0.1 %; Hematocrit (blood only) 27.1 % (37-47); Hemoglobin 9.3 g/dL (12.0-16.0); Immature Granulocytes # (auto) 0.03 K/uL (0.00-0.02); Immature Granulocytes % (auto) 0.3 %; Lymphocytes % (auto) 6.1 %; Mean Corpuscular Hemoglobin 31.1 pg (25-34); Mean Corpuscular Hgb Conc 34.3 g/dL (32-36); Mean Corpuscular Volume 90.6 fL (80-100); Mean Platelet Volume 11.8 fL (7.4-10.4); Monocytes % (auto) 3.5 %; Neutrophils # (auto) 10.43 K/uL (1.4-6.5); Platelet Count 180 K/uL (130-400); RDW Coefficient of Variation 13.1 % (11.5-14.5); RDW Standard Deviation 43.1 fL (36.4-46.3); Red Blood Count 2.99 M/uL (4.2-5.4); White Blood Count 11.57 K/uL (4.8-10.8)
[2019-11-27] MEDS: INSULIN ASPART 100 UNITS/ML 3 ML PEN SC SCH ×2 (17:56→21:58)
[2019-11-27 18:06] LABS: BUN Creatinine Ratio 9.6 (10-20); Calcium 8.1 mg/dl (8.5-10.1); Creatinine Clr Calc Pharmacy 38.4 ml/min; Est GFR (African American) 45.1; Est GFR (Non-African American) 38.9; Magnesium 1.3 mg/dl (1.8-2.4); Potassium 3.5 mmol/L (3.5-5.1)
[2019-11-27] MEDS: CEFAZOLIN 2000MG 2,000 MG/15 ML SYR IV SCH ×2 (18:20→23:16)
[2019-11-27] MEDS ORDERED: SODIUM CHLORIDE 0.9% 250 ML IV PRN (18:35)
[2019-11-27] MEDS ORDERED: SODIUM CHLORIDE 0.9% 1000ML 500 ML IV ONE (18:35)
[2019-11-27] MEDS: MAGNESIUM SULFATE / D5W 1 GM/100 ML BAG IV SCH ×2 (20:10→22:03)
[2019-11-27] MEDS ORDERED: METOPROLOL SUCC 50MG EXT REL TAB PO SCH (21:00)
[2019-11-27] MEDS ORDERED: FLUTICASONE/SALMETEROL 250/50 (ADVAIR) 14 PUFF/1 INHALER INH SCH (21:00)
[2019-11-27] MEDS: DOCUSATE SODIUM 100 MG CAP PO SCH (21:31)
[2019-11-27] MEDS: ATORVASTATIN 10 MG TAB PO SCH (21:31)
[2019-11-27] MEDS: SENNA 8.6 MG TAB PO SCH (21:31)
[2019-11-27] MEDS: DOXEPIN HCL 25 MG CAPSULE PO SCH (21:31)
[2019-11-27] MEDS: PERPHENAZINE 2 MG TABLET PO SCH (21:31)
[2019-11-27] MEDS: ASPIRIN 81 MG ECTAB PO SCH (21:31)
[2019-11-27] MEDS: FAMOTIDINE 20 MG TAB PO SCH (21:57)
[2019-11-28] MEDS ORDERED: SODIUM CHLORIDE 0.9% 500 ML IV SCH (00:15)
[2019-11-28] MEDS ORDERED: SODIUM CHLORIDE 0.9% 250 ML IV SCH (00:30)
[2019-11-28 00:48] LABS: Hematocrit (blood only) 23.8 % (37-47); Hemoglobin 8.3 g/dL (12.0-16.0)
[2019-11-28] MEDS ORDERED: SODIUM CHLORIDE 0.9% 250 ML IV PRN (00:58)
[2019-11-28] MEDS: KETOROLAC TROMETHAMINE 15 MG/ML VIAL IV SCH ×3 (01:57→15:40)
[2019-11-28] MEDS ORDERED: ACETAMINOPHEN 325 MG TAB PO ONE (02:00)
[2019-11-28] MEDS: LEVOTHYROXINE SODIUM 125 MCG TABLET PO SCH (06:07)
--- NOTE | 2019-11-28 06:41 | Orthopedic Progress Note ---
Date of Service November 28, 2019 Assessment & Plan (1) History of total left hip arthroplasty: She is still dealing with her blood pressure and her postoperative anemia. These are not unexpected complications following the surgery. She has a history of postoperative hypotension following previous procedures requiring anesthesia. Postoperative anemia is an expected result of hip replacement surgery in the obese population. The hospitalist team will continue to treat her with fluids and the blood transfusion. She seems to be doing okay. I am hoping that physical therapy can have her up and ambulating later today. I will see her tomorrow and see how she is doing. She may return home tomorrow at the earliest. We will continue the aspirin for DVT prophylaxis. Present on Admission?: Yes Yonis Chin was seen and examined at bedside this morning. Overall she says she is feeling okay. She has been having trouble with postoperative hypotension. She has a history of postoperative hypotension after previous procedures requiring anesthesia. The hospitalist service has been consulted. They gave her a bolus of fluid. She remained hypotensive. Repeat H&H levels showed some postoperative anemia. She was then started on 2 units of packed red blood cells. Her blood pressure has stabilized. She has not been out of bed yet. Physical Exam Musculoskeletal: On physical examination of the left hip, the Sumi VAC dressing is to suction. There is no bleeding from the incision into the Sumi VAC dressing. She is neurovascular intact. Results & Data ([facility]) Vital Signs (Past 12 Hours) Vital Signs Temp Pulse Pulse Resp BP BP Pulse Ox 11/28/19 05:30 36.9 C 103 H 16 153/75 H 94 11/28/19 04:28 36.6 C 103 H 18 93/56 L 96 11/28/19 03:28 36.9 C 104 H 18 108/68 94 11/28/19 03:00 37.1 C 104 H 14 99/63 L 94 11/28/19 02:45 37.0 C 103 H 16 104/65 96 11/28/19 02:24 36.9 C 103 H 16 122/71 94 11/27/19 23:52 36.9 C 105 H 20 82/50 L 93 11/27/19 21:05 98/59 L Laboratory Results H & H 11/27/19 11/27/19 11/27/19 Range/Units 07:18 17:31 20:29 Hgb 14.9 9.3 L D 8.8 L (12.0-16.0) g/dL Hct 42.4 27.1 L (37-47) % 11/28/19 Range/Units 00:22 Hgb 8.3 L (12.0-16.0) g/dL Hct 23.8 L (37-47) % Coagulation 11/27/19 Range/Units 07:18 INR 1.0 (0.9-1.1) Diagnostic Findings Postoperative x-rays of the left hip show the prosthesis to be in anatomic alignment without any evidence of fracture, dislocation, or loosening. PG Care Time/CCT Total # of Minutes Spent Total Time Spent with Patient: Total time spent is greater than 50% in coordination of care (as documented) at patient's floor/unit and/or counseling patient: Coding Level of Care Code None Diagnoses History of total left hip arthroplasty Z96.642
--- NOTE | 2019-11-28 06:56 | Electrocardiogram Report ---
Test Reason : Blood Pressure : / mmHG Vent. Rate : 094 BPM Atrial Rate : 094 BPM P-R Int : 146 ms QRS Dur : 072 ms QT Int : 384 ms P-R-T Axes : 056 023 045 degrees QTc Int : 480 ms Normal sinus rhythm Prolonged QT When compared with ECG of 19-AUG-2019 12:44, No significant change was found Confirmed by Mu Barclay ([id number]) on 11/28/2019 6:55:56 AM Referred By: Srini Mathur Confirmed By:Mu Barclay
[2019-11-28] MEDS: ACETAMINOPHEN 500 MG TAB PO SCH (07:21)
[2019-11-28] MEDS: ACETAMINOPHEN 325 MG TAB PO SCH ×3 (07:48→18:32)
[2019-11-28] MEDS: DOCUSATE SODIUM 100 MG CAP PO SCH ×2 (08:51→20:36)
[2019-11-28] MEDS: FLUTICASONE/VILANTEROL 200/25MCG 14 PUFFS/INHALER INH SCH (08:51)
[2019-11-28] MEDS: FLUTICASONE PROPIONATE NA SPR 16 GM BTL SCH (08:52)
[2019-11-28] MEDS: CETIRIZINE HCL 10 MG TABLET PO SCH (08:52)
[2019-11-28] MEDS: ASPIRIN 81 MG ECTAB PO SCH ×2 (08:53→20:39)
[2019-11-28] MEDS: MULTIVITAMIN TAB PO SCH (08:53)
[2019-11-28] MEDS: FAMOTIDINE 20 MG TAB PO SCH ×2 (08:56→20:55)
[2019-11-28] MEDS: FERROUS SULFATE 325 MG TAB PO SCH (08:56)
[2019-11-28] MEDS: INSULIN ASPART 100 UNITS/ML 3 ML PEN SC SCH ×4 (08:59→20:43)
[2019-11-28] MEDS ORDERED: CHLORTHALIDONE 25 MG TAB PO SCH (09:00)
[2019-11-28] MEDS ORDERED: OMEGA-3 (PURIFIED FISH OIL) 1 GM CAP PO SCH (09:00)
--- NOTE | 2019-11-28 10:25 | Hospitalist Progress Note ---
Date of Service November 28, 2019 Assessment & Plan (1) History of total left hip arthroplasty: (2) Hypotensive episode: Acute blood loss anemia secondary to surgery for total left hip arthroplasty -This is a 68-year-old female with PMH of DM II, hypothyroidism, HTN, h/o NE, HLD, CKD III, COPD, GERARDO and other medical problems listed below who is s/p left total hip arthoplasty by Dr. Mathur who became hypotensive this afternoon following surgery on 11/27/2019. Endorses history of refractory hypotension following surgical procedures. Pre-op hgb of 14.9 with EBL of 250ml, BP 76/50 during time of initial hospitalist evaluation on 2 machine and 1 manual reads, then patient given IV fluids, and holding chlorthalidone and Toprol -CBC was trended and night time doctor ordered 2 units of PRBC to be given once hemoglobin was 8.3. Patient seen by day time hospitalist around 10 AM on 11/28/2019 with 2nd unit of PRBC still running. recheck Hgb on 11/28/2019 -resume metoprolol succinate as 25 mg daily for now (home dose is usually 50 mg daily) (3) Diabetes mellitus, type II: A1c of 6.0 in 09/03 -Hold home agents -Glycemic consult following the patient's blood sugars and insulin requirements based on blood sugar checks (4) COPD (chronic obstructive pulmonary disease): Continue home inhalers, Erythromycin MoWeFr (5) Nocturnal hypoxemia: on 2L/min of oxygen at night (6) History of heart attack: H/o NE in 1996. Medically managed with aspirin, statin and beta hector. (7) Hypertension: hold home dose chlorathalidone for now until blood pressure above 140/90 (8) Hypothyroidism: Continue levothyroxine (9) Anxiety and depression: Continue Perphenazine and Doxepin. Vibryd not on formulary and patient did not bring. prn Ativan qhs if anxiety prn ambien if needing for sleep DVT Ppx: Aspirin BID PCP: Beatrice Dispo: Per primary service Admission and Anticipated Discharge Date Admission Date: November 27, 2019 Subjective Patient seen and examined with 2nd unit PRBC running. Patient breathing on room air. no shortness of breath. no chest pain. no palpitations. left hip with wound vac Review of Systems Review of Systems: All systems reviewed & are unremarkable except as noted in Subjective Physical Exam Constitutional: comfortable Eyes: PERRL, conjunctivae normal, anicteric sclerae EOM intact bilaterally ENMT: external ear and nose normal, oropharynx normal Neck: normal visual inspection Respiratory: normal respiratory effort, lungs clear to auscultation Cardiovascular: Rate/Rhythm: regular rhythm Gastrointestinal (Abdomen): normal bowel sounds, soft, nontender, no hepatosplenomegaly Musculoskeletal: Head/Neck/Chest: normocephalic left hip with wound vac Neurologic: PERRL, EOMI, accommodation nl, no face palsy, no dysarthria CN's II-XI intact bilaterally Psychiatric: A+Ox3, euthymic affect Results & Data Results & Data ([facility]) Vital Signs (Past 12 Hours) Vital Signs Temp Pulse Pulse Resp BP BP Pulse Ox 11/28/19 09:30 36.7 C 108 H 18 123/76 96 11/28/19 09:00 36.6 C 108 H 20 131/78 97 11/28/19 08:44 36.9 C 106 H 18 126/81 99 11/28/19 08:29 36.7 C 102 H 18 102/66 96 11/28/19 07:05 36.6 C 102 H 16 108/67 97 11/28/19 05:30 36.9 C 103 H 16 153/75 H 94 11/28/19 04:28 36.6 C 103 H 18 93/56 L 96 11/28/19 03:28 36.9 C 104 H 18 108/68 94 11/28/19 03:00 37.1 C 104 H 14 99/63 L 94 11/28/19 02:45 37.0 C 103 H 16 104/65 96 11/28/19 02:24 36.9 C 103 H 16 122/71 94 11/27/19 23:52 36.9 C 105 H 20 82/50 L 93
[2019-11-28] MEDS ORDERED: LORazepam 0.5 MG TAB PO PRN (10:28)
[2019-11-28] MEDS: METOPROLOL SUCC 25MG EXT REL TAB PO SCH (11:45)
[2019-11-28] MEDS: MAGNESIUM OXIDE 400 MG TAB PO SCH (11:45)
[2019-11-28] MEDS: MAGNESIUM SULFATE / D5W 1 GM/100 ML BAG IV SCH ×2 (11:46→13:55)
[2019-11-28] MEDS: OXYCODONE HCL IR 5 MG TAB (IMMEDIATE RELEASE) PO PRN ×2 (11:57→17:12)
[2019-11-28 13:27] LABS: Estimated Average Glucose 123 mg/dl; Hemoglobin A1C 5.9 % (4.5-5.6)
[2019-11-28 13:46] LABS: BUN Creatinine Ratio 13.3 (10-20); Calcium 8.2 mg/dl (8.5-10.1); Creatinine Clr Calc Pharmacy 47.3 ml/min; Est GFR (Non-African American) 50.1; Magnesium 2.2 mg/dl (1.8-2.4); Potassium 3.3 mmol/L (3.5-5.1)
[2019-11-28 13:47] LABS: Phosphorus 2.6 mg/dl (2.5-4.9)
[2019-11-28] MEDS ORDERED: POTASSIUM CHLORIDE 20 MEQ TABCR PO STA (14:19)
[2019-11-28 14:26] LABS: Hematocrit (blood only) 34.4 % (37-47); Hemoglobin 11.6 g/dL (12.0-16.0); Mean Corpuscular Hemoglobin 29.7 pg (25-34); Mean Corpuscular Hgb Conc 33.7 g/dL (32-36); Mean Platelet Volume 11.8 fL (7.4-10.4); Platelet Count 145 K/uL (130-400); RDW Coefficient of Variation 13.9 % (11.5-14.5); RDW Standard Deviation 44.8 fL (36.4-46.3); Red Blood Count 3.91 M/uL (4.2-5.4)
[2019-11-28] MEDS: SENNA 8.6 MG TAB PO SCH (20:36)
[2019-11-28] MEDS: DOXEPIN HCL 25 MG CAPSULE PO SCH (20:39)
[2019-11-28] MEDS: PERPHENAZINE 2 MG TABLET PO SCH (20:40)
[2019-11-28] MEDS: ATORVASTATIN 10 MG TAB PO SCH (20:40)
[2019-11-28] MEDS: ZOLPIDEM TARTRATE 5 MG TAB PO PRN (22:32)
[2019-11-29] MEDS: ACETAMINOPHEN 325 MG TAB PO SCH ×5 (00:15→23:34)
[2019-11-29] MEDS: OXYCODONE HCL IR 5 MG TAB (IMMEDIATE RELEASE) PO PRN ×4 (00:17→17:38)
[2019-11-29] MEDS: LEVOTHYROXINE SODIUM 125 MCG TABLET PO SCH (05:20)
[2019-11-29 05:29] LABS: Albumin Globulin Ratio 0.9 (0.9-2); Albumin Level 2.8 gm/dl (3.4-5.0); BUN Creatinine Ratio 15.2 (10-20); Bilirubin,Total 0.5 mg/dl (0.2-1); Calcium 8.6 mg/dl (8.5-10.1); Creatinine Clr Calc Pharmacy 54.1 ml/min; Est GFR (African American) 68.2; Est GFR (Non-African American) 58.9; Globulin 3.1 gm/dl (2.5-4.0); Magnesium 2.1 mg/dl (1.8-2.4); Potassium 3.8 mmol/L (3.5-5.1); Total Protein 5.9 gm/dl (6.4-8.2)
[2019-11-29] MEDS: METOPROLOL SUCC 25MG EXT REL TAB PO SCH (07:24)
[2019-11-29] MEDS ORDERED: METFORMIN HCL 500 MG TAB PO SCH (08:00)
--- NOTE | 2019-11-29 08:37 | Orthopedic Progress Note ---
Date of Service November 29, 2019 Assessment & Plan (1) History of total left hip arthroplasty: Overall she is improving. She will be seen by physical therapy again today for ambulation and range of motion exercises. She would like to return home rather than go to a inpatient rehab facility. Her daughter is going to be staying with her for 2 weeks. She is scheduled to have [facility] come by the house and she has a nursing agency that comes by 3 days a week. I wrote her a prescription for a standing walker. We will keep her in the hospital today. 1 to make sure that her blood pressure stays under control and that her sugars are controlled as well. If everything goes well then we can anticipate discharge to home for tomorrow. Present on Admission?: Yes Subjective Elsy was seen and examined at bedside this morning. Overall she is doing okay. She was seen by physical therapy yesterday and was motivated to ambulate but was slow with ambulation. She still having some trouble abducting her leg to get up out of bed. Her blood pressure is a little high today. Her H&H has returned to normal. She has no new complaints. Physical Exam Musculoskeletal: On physical examination of the left hip, the Sumi VAC dressing is to suction. Her leg lengths are equal. She has active dorsiflexion and plantarflexion of her left ankle. Results & Data ([facility]) Vital Signs (Past 12 Hours) Vital Signs Temp Pulse Resp BP Pulse Ox 11/29/19 07:07 36.8 C 90 16 165/99 H 98 11/28/19 23:00 36.7 C 91 H 20 153/91 H 99 Laboratory Results H & H 11/27/19 11/27/19 11/27/19 Range/Units 07:18 17:31 20:29 Hgb 14.9 9.3 L D 8.8 L (12.0-16.0) g/dL Hct 42.4 27.1 L (37-47) % 11/28/19 11/28/19 Range/Units 00:22 12:55 Hgb 8.3 L 11.6 L D (12.0-16.0) g/dL Hct 23.8 L 34.4 L (37-47) % Coagulation 11/27/19 Range/Units 07:18 INR 1.0 (0.9-1.1) PG Care Time/CCT Total # of Minutes Spent Total Time Spent with Patient: Total time spent is greater than 50% in coordination of care (as documented) at patient's floor/unit and/or counseling patient: Coding Level of Care Code None Diagnoses History of total left hip arthroplasty Z96.642
[2019-11-29] MEDS: FLUTICASONE/VILANTEROL 200/25MCG 14 PUFFS/INHALER INH SCH (08:56)
[2019-11-29] MEDS: FAMOTIDINE 20 MG TAB PO SCH ×2 (09:00→21:19)
[2019-11-29] MEDS: FLUTICASONE PROPIONATE NA SPR 16 GM BTL SCH (09:00)
[2019-11-29] MEDS: CETIRIZINE HCL 10 MG TABLET PO SCH (09:00)
[2019-11-29] MEDS: DOCUSATE SODIUM 100 MG CAP PO SCH ×2 (09:00→21:19)
[2019-11-29] MEDS: METFORMIN HCL 500 MG TAB PO SCH ×2 (09:01→17:38)
[2019-11-29] MEDS: MULTIVITAMIN TAB PO SCH (09:01)
[2019-11-29] MEDS: MAGNESIUM OXIDE 400 MG TAB PO SCH (09:02)
[2019-11-29] MEDS: ASPIRIN 81 MG ECTAB PO SCH ×2 (09:02→21:18)
[2019-11-29] MEDS: FERROUS SULFATE 325 MG TAB PO SCH (09:02)
[2019-11-29] MEDS: INSULIN ASPART 100 UNITS/ML 3 ML PEN SC SCH ×4 (09:05→22:00)
--- NOTE | 2019-11-29 09:44 | Pharmacy Report ---
Pharmacy Glycemic Short Note 2 - Date of Service November 29, 2019 - Glycemic Short BSG Results (Last 24 hours): 11/28/19 11/28/19 11/28/19 12:43 12:55 17:02 Glucose 120 H POC Glucose 153 H 121 H 11/28/19 11/29/19 11/29/19 20:30 04:08 08:24 Glucose 128 H POC Glucose 158 H 120 H ASSESSMENT: * Patient received total of 12 units of SSI yesterday - fasting BSG this AM 120 mg/dL * Plan to restart home metformin this morning PLAN FOR INPATIENT GLYCEMIC CONTROL: * Basal insulin - not indicated * Bolus insulin * NovoLog per scale ACHS or Q6hrs while NPO * Goal Range: Low 110 mg/dL - High 140 mg/dL * Correction Factor: 30 mg/dL/unit * Nutritional / Prandial insulin per carb ratio of 1 unit per 12 grams CHO consumed PLAN FOR DISCHARGE: * A1C of 6 indicates excellent glycemic control - would recommend continuation of home metformin as long as patient does not report lows at home
--- NOTE | 2019-11-29 11:15 | Hospitalist Progress Note ---
Date of Service November 29, 2019 Assessment & Plan (1) History of total left hip arthroplasty: -s/p left total hip arthoplasty by Dr. Mathur on 11/27/2019 (2) Hypotensive episode: Acute blood loss anemia secondary to surgery for total left hip arthro plasty -This is a 68-year-old female with PMH of DM II, hypothyroidism, HTN, h/o PR, HLD, CKD III, COPD, GERARDO and other medical problems listed below who is s/p left total hip arthoplasty by Dr. Mathur who became hypotensive on afternoon following surgery on 11/27/2019. Endorses history of refractory hypotension following surgical procedures. Pre-op hgb of 14.9 with EBL of 250ml, BP 76/50 during time of initial hospitalist evaluation on 2 machine and 1 manual reads, then patient given IV fluids, and holding chlorthalidone and Toprol -CBC was trended and night time doctor ordered 2 units of PRBC to be given once hemoglobin was 8.3. Patient seen by day time hospitalist around 10 AM on 11/28/2019 with 2nd unit of PRBC still running. recheck Hgb on 11/28/2019 of Hgb of 11.6 (3) Hypertension: -resume home chlorthalidone 25 mg daily starting on 11/29/2019 -continue metoprolol succinate as 25 mg daily (home dose is usually 50 mg daily) (4) Diabetes mellitus, type II: A1c of 6.0 in 09/03 -Hold home agents -Glycemic consult following the patient's blood sugars and insulin requirements based on blood sugar checks (5) COPD (chronic obstructive pulmonary disease): Continue home inhalers, Erythromycin MoWeFr (6) Nocturnal hypoxemia: on 2L/min of oxygen at night (7) History of heart attack: H/o PR in 1996. Medically managed with aspirin, statin and beta hector. (8) Hypothyroidism: Continue levothyroxine (9) Anxiety and depression: Continue Perphenazine and Doxepin. Vibryd not on formulary and patient did not bring. prn Ativan qhs if anxiety prn ambien if needing for sleep DVT Ppx: Aspirin BID PCP: Beatrice Dispo: Per primary service Admission and Anticipated Discharge Date Admission Date: November 27, 2019 Subjective patient sitting up in chair while encounter with therapist. patient feeling well and that she slept well yesterday night after ambien. she is noting her blood pr essures are rising and she requests her chlorthalidone which hospitalist physician agrees. no distress. no acute pain. no shortness of breath. breathing on room air. no dizziness. no lightheadedness. Review of Systems Review of Systems: All systems reviewed & are unremarkable except as noted in Subjective Physical Exam Constitutional: comfortable Eyes: PERRL, conjunctivae normal, anicteric sclerae EOM intact bilaterally ENMT: external ear and nose normal, oropharynx normal Neck: normal visual inspection Respiratory: normal respiratory effort, lungs clear to auscultation Cardiovascular: Rate/Rhythm: regular rhythm Gastrointestinal (Abdomen): normal bowel sounds, soft, nontender, no hepatosplenomegaly Musculoskeletal: Head/Neck/Chest: normocephalic left thigh wound vac Neurologic: PERRL, EOMI, accommodation nl, no face palsy, no dysarthria CN's II-XI intact bilaterally Psychiatric: A+Ox3, euthymic affect Results & Data Results & Data ([facility]) Vital Signs (Past 12 Hours) Vital Signs Temp Pulse Resp BP Pulse Ox 11/29/19 08:45 142/87 H 11/29/19 07:07 36.8 C 90 16 165/99 H 98
[2019-11-29] MEDS: CHLORTHALIDONE 25 MG TAB PO SCH (12:37)
[2019-11-29] MEDS: SENNA 8.6 MG TAB PO SCH (21:15)
[2019-11-29] MEDS: ATORVASTATIN 10 MG TAB PO SCH (21:16)
[2019-11-29] MEDS: DOXEPIN HCL 25 MG CAPSULE PO SCH (21:17)
[2019-11-29] MEDS: PERPHENAZINE 2 MG TABLET PO SCH (21:17)
[2019-11-29] MEDS: ZOLPIDEM TARTRATE 5 MG TAB PO PRN (23:34)
[2019-11-30 05:04] LABS: Basophils # (auto) 0.01 K/uL (0-0.2); Basophils % (auto) 0.1 %; Eosinophils # (auto) 0.34 K/uL (0-0.5); Eosinophils % (auto) 4.3 %; Hematocrit (blood only) 30.1 % (37-47); Hemoglobin 10.3 g/dL (12.0-16.0); Immature Granulocytes # (auto) 0.02 K/uL (0.00-0.02); Immature Granulocytes % (auto) 0.3 %; Lymphocytes # (auto) 2.97 K/uL (1.2-3.4); Lymphocytes % (auto) 37.2 %; Mean Corpuscular Hemoglobin 30.6 pg (25-34); Mean Corpuscular Hgb Conc 34.2 g/dL (32-36); Mean Corpuscular Volume 89.3 fL (80-100); Mean Platelet Volume 11.6 fL (7.4-10.4); Monocytes # (auto) 0.96 K/uL (0.11-0.59); Neutrophils # (auto) 3.69 K/uL (1.4-6.5); Neutrophils % (auto) 46.1 %; Platelet Count 143 K/uL (130-400); RDW Coefficient of Variation 14.3 % (11.5-14.5); RDW Standard Deviation 46.4 fL (36.4-46.3); Red Blood Count 3.37 M/uL (4.2-5.4); White Blood Count 7.99 K/uL (4.8-10.8)
[2019-11-30 05:30] LABS: BUN Creatinine Ratio 13.4 (10-20); Calcium 8.9 mg/dl (8.5-10.1); Est GFR (Non-African American) 53.5; Potassium 3.7 mmol/L (3.5-5.1)
[2019-11-30] MEDS: LEVOTHYROXINE SODIUM 125 MCG TABLET PO SCH (06:09)
[2019-11-30] MEDS: ACETAMINOPHEN 325 MG TAB PO SCH (06:09)
--- NOTE | 2019-11-30 06:49 | Orthopedic Progress Note ---
Date of Service November 30, 2019 Assessment & Plan (1) History of total left hip arthroplasty: Overall she is doing much better. She will be seen again by physical therapy this morning for ambulation and range of motion exercises. She has a new walker. She is on aspirin for DVT prophylaxis. She is orthopedically stable for discharge to home with home health and [facility]. She will follow-up with orthopedics in 2 weeks. Present on Admission?: Yes Subjective Elsy was seen and examined at bedside this morning. Overall she is feeling a lot better. She seems to be ambulating better with physical therapy and the nursing staff. Her vital signs have returned to normal. She has no complaints. Physical Exam Musculoskeletal: On physical examination of the left hip, the Sumi VAC dressing is to suction. Her leg lengths are equal. She is neurovascularly intact. Results & Data ([facility]) Vital Signs (Past 12 Hours) Vital Signs Temp Pulse Resp BP Pulse Ox 11/29/19 23:31 36.8 C 85 16 136/84 94 PG Care Time/CCT Total # of Minutes Spent Total Time Spent with Patient: Total time spent is greater than 50% in coordination of care (as documented) at patient's floor/unit and/or counseling patient: Coding Level of Care Code None Diagnoses History of total left hip arthroplasty Z96.642
--- NOTE | 2019-11-30 06:52 | Discharge Summary ---
Date of Service November 30, 2019 Admission HPI Per Admitting Provider Elsy is a pleasant 68-year-old female who is been having a several year history of increasing left hip and groin pain. X-rays and clinical examination have been diagnostic for advanced osteoarthritis of the left hip. She does have a history of a right hip replacement done by Dr. Ball in 2003. She has done well with that. She has elected to proceed with a left lateral total hip arthroplasty. Principal Diagnosis Left total hip arthroplasty Discharge Data Allergies Allergy/AdvReac Type Severity Reaction Status Date / Time Sulfa (Sulfonamide Allergy Severe face Verified 11/27/19 07:40 Antibiotics) tongue lips swelling,HEADACHE amoxicillin AdvReac Intermediate YEAST Verified 11/27/19 07:40 INFECTION clavulanic acid AdvReac Intermediate YEAST Verified 11/27/19 07:40 INFECTION codeine AdvReac Mild N/V Verified 11/27/19 07:40 Consultations 11/27/19 16:14 Consult Hospitalist Routine 11/28/19 08:00 Consult Case Management - Discharge Planning Routine Procedures Performed Operation Date: 11/27/19 08:40 Actual Procedures p Left Lateral Total Hip Arthroplasty(Left) - Srini Mathur DO Hospital Course (1) History of total left hip arthroplasty: On November 27, 2019 Elsy arrived at [facility] and underwent a left lateral total hip arthroplasty without complication. She had a spinal anesthetic. Postoperatively she was started on aspirin for DVT prophylaxis and transferred to the general orthopedic floors. Postoperatively she was hypotensive. She states that this happens every time she has any anesthesia. The medicine team was consulted. An H&H showed some postoperative anemia. This is not an unexpected complication due to her obesity and her multiple medical comorbidities. She received 2 units of packed red blood cells. Her blood pressure stabilized. She was then seen by physical therapy. She was able to ambulate and was motivated but she was slow. On postop day #2 her H&H remained stable. She was seen once again by physical therapy. She was able to build up a little bit more endurance and a little more strength. Her vital signs remained stable. On postop day #3 she continued to do well. She was seen once again by physical therapy. She was then discharged home with a home health service and [facility]. She was offered a stay at a rehab facility but she declined. She will follow-up with orthopedics in 2 weeks. Total Time Total Time Spent Total Time Spent (In Minutes): 20 Discharge Plan Discharge Items Patient Disposition: Home - Home Health Services Reason For Visit: LEFT HIP DEGENERATIVE JOINT DISEASE Discharge Diagnosis: Left total hip arthroplasty Activity: As commented below Non-emergency contact: Surgeon Call non-emergency contact if: your wound has increased redness and your wound has increased drainage Follow-up/Referrals: Dominga Barron DO [Primary Care Provider] - Diet: Carb Consistent or DM2 Addtl Attending Provider Instructions: Activity and Therapy Recommendations: * If you are using [facility] then therapy will be provided at your home until they feel you have accomplished all of your goals. * If you are using [facility] then Physical Therapy will be provided until they feel you are ready to start Outpatient Physical Therapy. * If you are not using home therapy then Outpatient Physical Therapy should start about 3-5 days from your day of surgery. Therapy will last about 6-10 weeks * You were shown a series of exercises in the hospital. Do these exercises three times each day including the exercises you were shown in physical therapy. * Get up and walk several times each day.~ For the first four weeks, try not to stand or walk for more than one hour at a time. If you do stand or walk for more than one hour, you will not hurt anything, but your leg will likely swell.~~ * As you feel comfortable, you may change from the walker or crutches to a cane and~then to independent walking. Medications: * Narcotic You will likely be sent home from the hospital with a prescription for the narcotic pain medication that worked best throughout your stay. * Aspirin Most patients will be required to take Aspirin 81mg twice a day for 6 weeks after surgery. This is obtained [id number] and a prescription is not necessary. * Other medications may be prescribed for specific circumstances. If you have any questions, please call the office at . * Resume previous home medications unless otherwise instructed TEDs/Elastic Stockings: The white elastic stockings help limit swelling and prevent blood clots from forming in your legs. The more you wear them, the more they work. Wear them for six weeks. Dressing Care: You will likely have a purple VAC dressing after surgery. This dressing will keep the incision dry and promote early healing. After about 7 days the batteries will wear out and the VAC will lose suction. Simply remove the dressing at that time and throw everything away, including the small suction machine. Then, you may leave the nahum open to air or cover them with a dry dressing so they do not rub on your pants. The nahum will be removed at your 2 week follow-up appointment. Showering: You may shower immediately with the purple VAC dressing. Let the shower spray hit your opposite side and slowly pat the plastic dry. Do not soak the dressing. After the dressing is removed you may shower normally with the nahum exposed. Let soapy water run over the nahmu and pat them dry. Things To Watch For: * Drainage from the incision site that occurs more than one week after your surgery. * Increased redness at the incision site. * Fever above 102 degrees Fahrenheit. * Unusual chest pain or shortness of breath. * Call [facility] at with any of the above problems Follow-Up Visit: Follow-up with Dr. Mathur's PA (Srini Bonner) 2-3 weeks after your day of surgery. He will remove your nahum and answer any questions. If you have any additional questions or concerns, Dr Mathur is usually in the office at the same time and will be available An appointment was probably scheduled when you signed-up for surgery in the office. If you have any questions call Office Instructions: More detailed instructions as well as Frequently Asked Questions were provided in a folder by our office when you signed-up for surgery. Please review these instructions when you get home. If you have any further questions or concerns, please feel free to call the office at [phone] Pending Studies at Discharge: No Stand-Alone Forms: [facility], Smoking Cessation Medications and DC Order Prescriptions: New oxycodone-acetaminophen [Percocet] 5-325 mg tablet 1 tab PO Q6H PRN (Reason: pain) Qty: 30 RF: 0 Continued fluticasone propion-salmeterol [Advair Diskus] 250-50 mcg/dose Blister With Device 1 inh INHALATION BID RF: 0 perphenazine 2 mg Tablet 2 mg PO HS RF: 0 trazodone 50 mg Tablet 50 mg PO HS RF: 0 cetirizine 10 mg Tablet 10 mg PO QAM RF: 0 atorvastatin 10 mg Tablet 10 mg PO HS RF: 0 metoprolol succinate 50 mg Tablet Extended Release 24 Hr 50 mg PO HS RF: 0 doxepin 25 mg Capsule 25 mg PO HS RF: 0 prednisone 20 mg Tablet 20 mg PO UD PRN (Reason: COPD FLARE UP ) RF: 0 chlorthalidone 25 mg Tablet 25 mg PO QAM RF: 0 garlic 1,000 mg Capsule 1,000 mg PO DAILY RF: 0 erythromycin 250 mg Tablet 250 mg PO MOWEFR@0900 RF: 0 lorazepam 0.5 mg Tablet 0.5 mg PO HS PRN (Reason: Anxiety) RF: 0 metformin 1,000 mg Tablet 1,000 mg PO BID RF: 0 levofloxacin [Levaquin] 750 mg Tablet 750 mg PO UD PRN (Reason: COPD FLARE UP) RF: 0 fluticasone propionate 50 mcg/actuation [place],Suspension 2 spray INTRANASAL QAM RF: 0 albuterol sulfate 2.5 mg/0.5 mL Solution For Nebulization 2.5 mg INHALATION UD PRN (Reason: COPD) RF: 0 omega 0-pfd-lng-fish oil [Fish Oil] 1,000 mg (120 mg-180 mg) Capsule 1 cap PO DAILY RF: 0 levothyroxine 125 mcg Capsule 125 mcg PO QAM RF: 0 Combivent Respimat 20-100 mcg/actuation Mist 1 puff INHALATION QID PRN (Reason: COPD) RF: 0 Vibryd 40 mg PO QAM RF: 0 famotidine 20 mg Tablet 20 mg PO BID RF: 0 Changed aspirin [Aspir-81] 81 mg Tablet,Delayed Release (Dr/Ec) 81 mg PO BID 42 Days Qty: 0 RF: 0 Discharge Orders: Discharge Order (Routine); Ordered 11/30/19 Ordered By: Srini Mathur Admission Data Admit Date/Time: 11/27/19 11:02 Attending Provider: Srini Mathur Admit Provider: Srini Mathur Primary Care Provider: Dominga Barron Other Providers: Srikanth Lindsay ; Miles Sheldon ; Dasha Mei ; Danielle Rice ; Ros Felix ; Ruth Michel ; Dave Chinchilla ; Pawel May ; Kirt Ellis ; Viktoriya Vyas ; Charley Barker ; Tamela Mohan ; Drew Enamorado ; Ildefonso Blackwell ; Jimena Patton ; Wilmer Duckworth ; Erica Faulkner ; Ildefonso Collazo ; Janeen Lal ; Loly Robin ; Ayah Craig ; Nidhi Rousseau I. ; Ish Baltazar ; Daniel Burleson Coding Level of Care Code D/C Day Management <30 mins Diagnoses History of total left hip arthroplasty Z96.642
[2019-11-30] MEDS: ASPIRIN 81 MG ECTAB PO SCH (07:40)
[2019-11-30] MEDS: CETIRIZINE HCL 10 MG TABLET PO SCH (07:40)
[2019-11-30] MEDS: METFORMIN HCL 500 MG TAB PO SCH (07:41)
[2019-11-30] MEDS: METOPROLOL SUCC 25MG EXT REL TAB PO SCH (07:41)
[2019-11-30] MEDS: FERROUS SULFATE 325 MG TAB PO SCH (07:41)
[2019-11-30] MEDS: CHLORTHALIDONE 25 MG TAB PO SCH (07:41)
[2019-11-30] MEDS: FLUTICASONE PROPIONATE NA SPR 16 GM BTL SCH (07:42)
[2019-11-30] MEDS: MULTIVITAMIN TAB PO SCH (07:42)
[2019-11-30] MEDS: MAGNESIUM OXIDE 400 MG TAB PO SCH (07:42)
[2019-11-30] MEDS: FLUTICASONE/VILANTEROL 200/25MCG 14 PUFFS/INHALER INH SCH (07:43)
[2019-11-30] MEDS: FAMOTIDINE 20 MG TAB PO SCH (07:45)
--- NOTE | 2019-11-30 07:45 | Hospitalist Progress Note ---
Date of Service November 30, 2019 Assessment & Plan (1) History of total left hip arthroplasty: -s/p left total hip arthoplasty by Dr. Mathur on 11/27/2019 (2) Hypotensive episode: Acute blood loss anemia secondary to surgery for total left hip arthro plasty -This is a 68-year-old female with PMH of DM II, hypothyroidism, HTN, h/o RI, HLD, CKD III, COPD, GERARDO and other medical problems listed below who is s/p left total hip arthoplasty by Dr. Mathur who became hypotensive on afternoon following surgery on 11/27/2019. Endorses history of refractory hypotension following surgical procedures. Pre-op hgb of 14.9 with EBL of 250ml, BP 76/50 during time of initial hospitalist evaluation on 2 machine and 1 manual reads, then patient given IV fluids, and holding chlorthalidone and Toprol -CBC was trended and night time doctor ordered 2 units of PRBC to be given once hemoglobin was 8.3. Patient seen by day time hospitalist around 10 AM on 11/28/2019 with 2nd unit of PRBC still running. recheck Hgb on 11/28/2019 of Hgb of 11.6. Hgb remains stable on 11/30/2019 above 10 - she reports that orthopedics to discharge her to home with wound vac remaining on left hip -hospitalist team to sign off as patient being discharged (3) Hypertension: -resume home chlorthalidone 25 mg daily starting on 11/29/2019 -was continue metoprolol succinate as 25 mg daily (home dose is usually 50 mg daily) -orthopedics planning to discharge patient on 11/30/2019 and hospitalist service will advise 25 mg metoprolol daily on discharge and wrote new prescription toe sent electronically to [facility] (4) Diabetes mellitus, type II: A1c of 6.0 in 09/03 -Glycemic consult following the patient's blood sugars and insulin requirements based on blood sugar checks during hospital stay -patient to resume home dose diabetes medications on discharge (metformin 1000 mg BID) (5) COPD (chronic obstructive pulmonary disease): Continue home inhalers, Erythromycin MoWeFr (6) Nocturnal hypoxemia: on 2L/min of oxygen at night (7) History of heart attack: H/o RI in 1996. Medically managed with aspirin, statin and beta hector. (8) Hypothyroidism: Continue levothyroxine (9) Anxiety and depression: Continue Perphenazine and Doxepin. Vibryd not on formulary and patient did not bring. prn Ativan qhs if anxiety prn ambien if needing for sleep DVT Ppx: Aspirin BID PCP: [facility] Dispo: Per primary service Admission and Anticipated Discharge Date Admission Date: November 27, 2019 Subjective -orthopedics planning to discharge patient on 11/30/2019 and hospitalist service will advise 25 mg metoprolol daily on discharge and wrote new prescription toe sent electronically to [facility] [address] [facility] patient reports good sleep, no acute pain, she reports that orthopedics to discharge her to home with wound vac remaining on left hip. no dizziness. no headache. no shortness of breath. no chest pain. no palpitations. no abdomen pain. no vomiting Review of Systems Review of Systems: All systems reviewed & are unremarkable except as noted in Subjective Physical Exam Constitutional: comfortable Eyes: PERRL, conjunctivae normal, anicteric sclerae EOM intact bilaterally ENMT: external ear and nose normal, oropharynx normal Neck: normal visual inspection Respiratory: normal respiratory effort, lungs clear to auscultation Cardiovascular: Rate/Rhythm: regular rhythm Gastrointestinal (Abdomen): normal bowel sounds, soft, nontender, no hepatosplenomegaly Musculoskeletal: Head/Neck/Chest: normocephalic left thigh wound vac Neurologic: PERRL, EOMI, accommodation nl, no face palsy, no dysarthria CN's II-XI intact bilaterally Psychiatric: A+Ox3, euthymic affect Results & Data Results & Data ([facility]) Vital Signs (Past 12 Hours) Vital Signs Temp Pulse Resp BP Pulse Ox 11/29/19 23:31 36.8 C 85 16 136/84 94
[2019-11-30] MEDS: DOCUSATE SODIUM 100 MG CAP PO SCH (07:46)
[2019-11-30] MEDS: INSULIN ASPART 100 UNITS/ML 3 ML PEN SC SCH (08:29)
[2019-11-30] MEDS: OXYCODONE HCL IR 5 MG TAB (IMMEDIATE RELEASE) PO PRN (08:29)
[2019-11-30] MEDS ORDERED: ERYTHROMYCIN DELAYED RELEASE 250 MG CAP PO SCH (09:00)
== END 2019-11-30 11:10 | disposition home health service (06) | DRG 470 ==
LOC: ASU 06:52 → 3E 11:02

== ENCOUNTER 2023-06-04 14:30 | Inpatient (IN) ==
[2023-06-04] MEDS ORDERED: CEFEPIME 2,000 MG/20 ML VIAL IV STA (14:50)
--- NOTE | 2023-06-04 14:50 | Emergency Department Note ---
Impression & Plan Acute hypotension, Acute dehydration, Slurred speech, ADI (acute kidney injury) ED Provider Note NAME: WILNER KENNEDY AGE: 72 SEX: F : 1950 ARRIVES VIA: Ambulance INFORMANT: Patient, ED PROVIDER(S): Salomon Santos MD CHIEF COMPLAINT: Low blood pressure, slurred speech MEDICAL DECISION MAKING: Patient presented due to concern for low blood pressure associated slurred speech. Upon presentation the patient is awake alert acting appropriate answers all questions appropriately without any obvious focal deficits. The patient's slurred speech may have been precipitated by hypotension which was reported by EMS and route seem to prove after given push dose epi. IV was established and blood was obtained including sepsis protocols and IV fluids. Patient did have a CT of the head EKG troponin chest x-ray performed. Bedside FAST exam was performed which did not show any obvious pericardial fluid no obvious free fluid in the abdomen. The patient IVC had some mild variability with respirations. Patient's blood work showed a normal white count mild anemia hemoglobin 11 with a normal platelet count. Kidney function creatinine 1.8. Procalcitonin normal BioFire negative and patient's urinalysis does not show evidence of obvious infection. CT head negative. Patient did receive about 2 and half liters and did have improvement the patient's blood pressure. Given the patient's profound hypotension also causing potential slurred speech I did speak the on-call hospitalist service Dr. Otto and the patient was admitted to the medicine service. Critical Care: I have personally spent 35 minutes of critical care time in direct management of this patient. This includes bedside care, interpretation of diagnostic studies, and testing, discussion with consultants, patient, and family members, and other require inpatient management activities. This 35 minutes is in excess of all separately billable procedures. Procedures: Limited Point of Care FAST Ultrasound performed by me: Indication: Hypotension Findings: Limited cardiac ultrasonography via subxiphoid and parasternal long view showed cardiac wall motion activity, no pericardial fluid, no tamponade. Limited chest ultrasound revealed bilateral lung sliding. No significant B- lines. Limited abdominal ultrasound revealed no free fluid within Morrisons pouch, splenorenal space, or the pouch of Steffen. Discussion w/ other healthcare providers: Dr. Otto inpatient medicine service Prior /Outside records reviewed: I reviewed a discharge summary from November 30, 2019 patient did have a total hip arthroplasty completed by Dr. Mathur and was discharged at that time. I did review a hospice consultation from 11/27/2019. This is from Ruth Michel PA-C. The patient did have a hypotensive episode which is in the postoperative setting. Patient had been taking chlorthalidone and Toprol at that time the patient has had issues with this like reportedly before secondary to dehydration and order for general anesthesia. Differential diagnosis: Infection, dehydration, metabolic abnormality, hypo/hyperglycemia, electrolyte imbalance, anemia, UTI, pneumonia, thyroid dysfunction among others were considered. Diagnostics, as interpreted by me: ECG: Sinus, rate of 66, normal intervals, normal axis no ST elevations. No significant change from comparison November 27, 2019 Cardiac monitoring: An order was placed for continuous cardiac monitoring. The monitor shows a rate of 68 with sinus rhythm. Patient was placed on pulse oximetry Medical decision rules: None Imaging studies: I informally interpreted the patient's chest x-ray which does not show obvious pneumonia or pneumothorax with formal report to follow. I informally interpreted patient CT head which does not show obvious ICH HPI: Patient presents from an independent care facility with reported slurred speech. EMS had called due to concern for the slurred speech but was noted to be hypotensive in the 60s. The patient did receive a liter of IV fluids this did not greatly improve her blood pressure but the patient was subsequently given some push dose epinephrine which improved her blood pressure and resolved her slurred speech. Patient did receive additional IV fluids and presented and there was no change in the patient's blood pressure per EMS. BSG was 185 with a normal heart rate and the patient was not febrile. Patient currently denies any headache chest pain nausea vomiting or diarrhea. The patient states that she was told that she did not seem to be herself and that is when EMS was called. The patient denies any urinary symptoms no vomiting or diarrhea. PAST MEDICAL HISTORY: See Below PAST SURGICAL HISTORY: See Below SOCIAL HISTORY: See Below HOME MEDICATIONS: See Below ALLERGIES: See Below VITALS: See Below PHYSICAL EXAMINATION: GENERAL: NAD, non-toxic. EYE EXAM: Normal conjunctiva. PERRL, no anisocoria and EOM's grossly intact w/o pain. OROPHARYNX: Moist mucus membranes, grossly normal dentition. NECK: Supple, no nuchal rigidity, no adenopathy, non-tender. No signs of meningismus. FROM of the neck with good chin to chest and neck extension. No stridor. LUNGS: Clear to auscultation. Normal chest wall mechanics. HEART: NSR, no MRG. ABDOMEN: Abdomen soft, non-tender, no masses, no rebound or guarding. BACK: No CVA TTP. SKIN: No rashes and no bruising. UPPER EXTREMITIES: Upper extremities are grossly normal. LOWER EXTREMITIES: Grossly normal, no edema. NEURO EXAM: A&O x3, follows basic commands knows person place time date of , cranial nerves II-XII grossly intact, normal speech, moves all 4 extremities. Past Med/Surg History Medical History (Updated 06/07/23 @ 16:57 by Salomon Santos MD) Hypotensive episode Diabetes mellitus, type II COPD (chronic obstructive pulmonary disease) Nocturnal hypoxemia 2L O2 HS Obesity Hypothyroidism Dyslipidemia Fatty liver Acid reflux well controlled Arthritis Degenerative disc disease Sciatica Anxiety and depression Thyroid enlarged no dysphagia Asthma mild, "well controlled and stable", rare inhaler use History of heart attack 1996- medically managed Hypertension Surgical History History of total left hip arthroplasty (~11/2019) History of colonoscopy History of left cataract surgery History of right cataract surgery History of right hip replacement History of hysterectomy History of hernia repair History of cardiac cath FOLLOWING HEART ATTACK, NO FINDINGS 1996 Family History Mother Family history of diabetes mellitus Aunt Family history of diabetes mellitus Son Family history of colon cancer Social History Smoking Status: Former smoker Smoking End Date: 12 years ago; Second Hand Exposure: Yes; Do You Dip or Chew Tobacco: No; Tobacco Cessation Education Requested by Patient: No Hx Alcohol Use: No Hx Substance Use: No Preferred Language: Upper Sorbian Communication Ability: Effective Visual Impairment: No Limitations Hearing Ability: Normal Continuous [employer] Supervisor Required: No Beliefs That Will Affect Care: None Current Living Situation: Alone Current Living Situation Comment: Lives in [facility] independent living current occupational status: retired Other Information That Helps Us Care for You: No Feels Safe at Home: Yes Safety Concerns: Feels Safe At This Time Safety Concerns Comment: office of aging is visiting her tomorrow regarding getting more help @ home Assistive Devices: Cane, CPAP and Walker Allergies Allergies Allergy/AdvReac Type Severity Reaction Status Date / Time Sulfa (Sulfonamide Allergy Severe face Verified 05/13/23 14:03 Antibiotics) tongue lips swelling,HEADACHE amoxicillin AdvReac Intermediate YEAST Verified 05/13/23 14:03 INFECTION clavulanic acid AdvReac Intermediate YEAST Verified 05/13/23 14:03 INFECTION codeine AdvReac Mild N/V Verified 05/13/23 14:03 Home Meds Home Medications Medication Instructions Recorded Confirmed atorvastatin 10 mg tablet 10 mg PO HS 08/14/19 06/04/23 cetirizine 10 mg tablet 10 mg PO QAM 08/14/19 06/04/23 doxepin 25 mg capsule 25 mg PO HS 08/14/19 06/04/23 levothyroxine 125 mcg capsule 125 mcg PO DAILYBB 08/14/19 06/04/23 perphenazine 2 mg tablet 4 mg PO HS 08/14/19 06/04/23 trazodone 50 mg tablet 50 mg PO HS 08/14/19 06/04/23 famotidine 20 mg tablet 20 mg PO AMHS 08/19/19 06/04/23 ascorbic acid (vitamin C) 1,000 mg 1 g PO DAILY 05/13/23 06/04/23 tablet chlorthalidone 25 mg tablet 50 mg PO QAM 05/13/23 06/04/23 diclofenac sodium 1 % topical gel 2 g topical DAILY 05/13/23 06/04/23 hydroxyzine HCl 25 mg tablet 25 mg PO BID PRN Anxiety 05/13/23 06/04/23 lisinopril 5 mg tablet 5 mg PO QAM 05/13/23 06/04/23 metoprolol succinate 50 mg 50 mg PO QAM 05/13/23 06/04/23 tablet,extended release 24 hr montelukast 10 mg tablet 10 mg PO QAM 05/13/23 06/04/23 vitamin B complex 1 cap PO DAILY 05/13/23 06/04/23 aspirin 81 mg tablet,delayed 81 mg PO QAM 06/04/23 06/04/23 release citalopram 10 mg tablet 10 mg PO QAM 06/04/23 06/04/23 citalopram 20 mg tablet 20 mg PO QAM 06/04/23 06/04/23 fluticasone propionate 50 1 spray intranasal QPM 06/04/23 06/04/23 mcg/actuation nasal spray,suspension lorazepam 0.5 mg tablet 0.5 mg PO HS PRN as directed 06/04/23 06/04/23 metformin 500 mg tablet 500 mg PO BIDM 06/04/23 06/04/23 omega-3 300 mg-dha 120 mg-epa 180 1 cap PO BID 06/04/23 06/04/23 mg-fish oil 1,000 mg capsule turmeric 450 mg-turmeric root 1 cap PO QAM 06/04/23 06/04/23 extract 50 mg capsule vitamin E (dl, acetate) 180 mg 180 mg PO BID 06/04/23 06/04/23 (400 unit) capsule Previous Rx's Medication Instructions Recorded tizanidine 4 mg tablet 4 mg PO BID PRN muscle spasticity 04/25/23 #30 tabs diclofenac sodium 75 mg 75 mg PO BID #60 tabs 05/13/23 tablet,delayed release Results & Data (ED) Home Medications Current Medication List: was personally reviewed by me Laboratory Data Attestation: I reviewed the patient's lab results. 06/07/23 05:57 06/07/23 05:57 Lab Results 06/04/23 06/04/23 06/04/23 Range/Units 14:52 15:09 15:57 WBC 8.79 (4.8-10.8) K/ul RBC 3.58 L (4.20-5.40) M/uL Hgb 11.2 L (12.0-16.0) g/dl Hct 32.3 L (37.0-47.0) % MCV 90.2 (80.0-100.0) fL MCH 31.3 (25.0-34.0) pg MCHC 34.7 (32.0-36.0) g/dL RDW Std Deviation 41.1 (36.4-46.3) fL RDW Coeff of Jennifer 12.6 (11.5-14.5) % Plt Count 205 (130-400) K/uL MPV 12.2 (9.4-12.4) fL Immature Gran % (Auto) 0.2 % Neut % (Auto) 60.8 % Lymph % (Auto) 22.8 % [place] % (Auto) 9.1 % Eos % (Auto) 6.6 % Baso % (Auto) 0.5 % Neut # (Auto) 5.35 (1.40-6.50) K/uL Lymph # (Auto) 2.00 (1.20-3.40) K/uL [place] # (Auto) 0.80 H (0.11-0.59) K/uL Eos # (Auto) 0.58 H (0.00-0.50) K/uL Baso # (Auto) 0.04 (0.00-0.20) K/uL Immature Gran # (Auto) 0.02 (0.01-0.20) K/uL Sodium 137 (136-145) mmol/L Potassium 3.7 (3.5-5.1) mmol/L Chloride 103 (98-107) mmol/L Carbon Dioxide 28 (21-32) mmol/L Anion Gap 6 (3-11) BUN 36 H (6-23) mg/dl Creatinine 1.81 H (0.6-1.2) mg/dl Est Cr Clr Drug Dosing 27.9 ml/min Est GFR ( Amer) 31.6 ml/min Est GFR (Non-Af Amer) 27.3 ml/min BUN/Creatinine Ratio 19.9 (10-20) Glucose 103 H (70-99(Fasting)) mg/dl Lactate 1.5 (0.4-2.0) mmol/L Calcium 7.9 L (8.6-10.3) mg/dl Magnesium 1.3 L (1.7-2.4) mg/dl Total Bilirubin 0.3 (0.2-1.0) mg/dl AST 17 (13-39) U/L ALT 23 (7-52) U/L Alkaline Phosphatase 35 (34-104) U/L Total Protein 5.1 L (6.0-8.3) gm/dl Albumin 3.2 L (3.4-5.0) gm/dl Globulin 1.9 L (2.5-4.0) gm/dl Albumin/Globulin Ratio 1.7 (0.9-2) Procalcitonin < 0.05 (0-0.5) ng/ml Urine Color Yellow Urine Appearance Clear (Clear) Urine pH 5.5 (4.5-7.5) Ur Specific [place] 1.011 (1.000-1.030) Urine Protein Negative (Negative) Urine Glucose (UA) Negative (Negative) Urine Ketones Negative (Negative) Urine Blood Trace H (Negative) Urine Nitrite Negative (Negative) Urine Bilirubin Negative (Negative) Urine Urobilinogen Negative (Negative) Ur Leukocyte Esterase Negative (Negative) Urine WBC (Auto) 0 (0-5) /hpf Urine RBC (Auto) 0-4 (0-4) /hpf U Hyaline Cast (Auto) 1-5 (0-5) /lpf U Epithel Cells (Auto) 20-30 H (0-5) /lpf Urine Bacteria (Auto) Negative (Negative) Adenovirus (PCR) Not Detected (NotDetected) B. pertussis DNA (PCR) Not Detected (NotDetected) B.parapertussis DNA PCR Not Detected (NotDetected) C. pneumoniae DNA (PCR) Not Detected (NotDetected) Coronavirus OC43 (PCR) Not Detected (NotDetected) Coronavirus HKU1 (PCR) Not Detected (NotDetected) Coronavirus 229E (PCR) Not Detected (NotDetected) SARS-CoV-2 (PCR) Not Detected (NotDetected) Coronavirus NL63 (PCR) Not Detected (NotDetected) Human Metapneumovir PCR Not Detected (NotDetected) Influenza Type A (PCR) Not Detected (NotDetected) Influenza Type B (PCR) Not Detected (NotDetected) M. pneumoniae (PCR) Not Detected (NotDetected) Parainfluenza 1 (PCR) Not Detected (NotDetected) Parainfluenza 2 (PCR) Not Detected (NotDetected) Parainfluenza 3 (PCR) Not Detected (NotDetected) Parainfluenza 4 (PCR) Not Detected (NotDetected) RSV (PCR) Not Detected (NotDetected) Entero/Rhino (PCR) Not Detected (NotDetected) Administered Medications Acetaminophen (Acetaminophen 325 Mg Tab) 650 mg PO Q6H PRN PRN Reason: Pain or Fever Stop: 07/05/23 20:58 Last Admin: 06/05/23 21:15 Dose: 650 mg Documented By: LMP Ascorbic Acid (Ascorbic Acid 500 Mg Tab) 1,000 mg PO DAILY EROS Stop: 07/05/23 08:59 Last Admin: 06/07/23 09:20 Dose: 1,000 mg Documented By: Admin: 06/06/23 08:48 Dose: 1,000 mg Documented By: Admin: 06/05/23 07:37 Dose: 1,000 mg Documented By: LITO Aspirin (Aspirin 81 Mg Ectab) 81 mg PO [facility] Stop: 07/05/23 08:59 Last Admin: 06/07/23 09:20 Dose: 81 mg Documented By: Admin: 06/06/23 08:48 Dose: 81 mg Documented By: Admin: 06/05/23 07:37 Dose: 81 mg Documented By: LITO Atorvastatin Calcium (Atorvastatin 10 Mg Tab) 10 mg PO [facility] Stop: 07/04/23 20:59 Last Admin: 06/06/23 19:39 Dose: 10 mg Documented By: Admin: 06/05/23 20:35 Dose: 10 mg Documented By: Admin: 06/04/23 20:59 Dose: 10 mg Documented By: MAYCO Cetirizine HCl (Cetirizine Hcl 10 Mg Tablet) 10 mg PO [facility] Stop: 07/05/23 08:59 Last Admin: 06/07/23 09:20 Dose: 10 mg Documented By: Admin: 06/06/23 08:48 Dose: 10 mg Documented By: Admin: 06/05/23 07:37 Dose: 10 mg Documented By: LITO Citalopram Hydrobromide (Citalopram 20 Mg Tab) 10 mg PO [facility] Stop: 07/05/23 08:59 Last Admin: 06/07/23 09:20 Dose: 10 mg Documented By: Admin: 06/06/23 08:48 Dose: 10 mg Documented By: Admin: 06/05/23 07:36 Dose: 10 mg Documented By: LITO Citalopram Hydrobromide (Citalopram 20 Mg Tab) 20 mg PO [facility] Stop: 07/05/23 08:59 Last Admin: 06/07/23 09:21 Dose: 20 mg Documented By: Admin: 06/06/23 08:48 Dose: 20 mg Documented By: Admin: 06/05/23 07:37 Dose: 20 mg Documented By: LITO Doxepin HCl (Doxepin Hcl 25 Mg Capsule) 25 mg PO HS EROS Stop: 07/04/23 20:59 Last Admin: 06/06/23 19:40 Dose: 25 mg Documented By: Admin: 06/05/23 20:35 Dose: 25 mg Documented By: Admin: 06/04/23 20:59 Dose: 25 mg Documented By: MAYCO Famotidine (Famotidine 20 Mg Tab) 20 mg PO AMHS EROS Stop: 07/04/23 20:59 Last Admin: 06/07/23 09:21 Dose: 20 mg Documented By: Admin: 06/06/23 19:39 Dose: 20 mg Documented By: Admin: 06/06/23 08:49 Dose: 20 mg Documented By: Admin: 06/05/23 20:35 Dose: 20 mg Documented By: Admin: 06/05/23 07:38 Dose: 20 mg Documented By: Admin: 06/04/23 21:00 Dose: 20 mg Documented By: MAYCO Fish Oil ([place]-3 (Purified Fish Oil) 1 Gm Cap) 1 gm PO BID EROS Stop: 07/04/23 20:59 Last Admin: 06/07/23 09:21 Dose: 1 gm Documented By: Admin: 06/06/23 19:38 Dose: 1 gm Documented By: Admin: 06/06/23 08:47 Dose: 1 gm Documented By: Admin: 06/05/23 20:35 Dose: 1 gm Documented By: Admin: 06/05/23 07:38 Dose: 1 gm Documented By: Admin: 06/04/23 21:00 Dose: 1 gm Documented By: MAYCO Heparin Sodium (Porcine) (Heparin Sod 5,000 Unit/0.5 Ml Vial) 5,000 units SQ Q8 EROS Stop: 07/04/23 21:59 Last Admin: 06/07/23 13:19 Dose: 5,000 units Documented By: Admin: 06/07/23 05:44 Dose: 5,000 units Documented By: Admin: 06/06/23 21:18 Dose: 5,000 units Documented By: Admin: 06/06/23 14:10 Dose: 5,000 units Documented By: Admin: 06/06/23 05:43 Dose: 5,000 units Documented By: Admin: 06/05/23 20:37 Dose: 5,000 units Documented By: Admin: 06/05/23 13:06 Dose: 5,000 units Documented By: Admin: 06/05/23 06:21 Dose: 5,000 units Documented By: Admin: 06/04/23 21:02 Dose: 5,000 units Documented By: MAYCO Levothyroxine Sodium (Levothyroxine Sodium 125 Mcg Tablet) [facility] Stop: 07/05/23 06:29 Last Admin: 06/07/23 05:44 Dose: 125 mcg Documented By: Admin: 06/06/23 05:43 Dose: 125 mcg Documented By: Admin: 06/05/23 06:21 Dose: 125 mcg Documented By: MAYCO Lorazepam (Lorazepam 0.5 Mg Tab) 0.5 mg PO HS PRN PRN Reason: as directed Stop: 07/04/23 18:56 Last Admin: 06/06/23 19:43 Dose: 0.5 mg Documented By: Admin: 06/05/23 20:35 Dose: 0.5 mg Documented By: Admin: 06/04/23 20:59 Dose: 0.5 mg Documented By: MAYCO Magnesium Oxide (Magnesium Oxide 400 Mg Tab) 400 mg PO [facility] Stop: 07/05/23 11:59 Last Admin: 06/07/23 09:21 Dose: 400 mg Documented By: Admin: 06/06/23 08:47 Dose: 400 mg Documented By: Admin: 06/05/23 13:04 Dose: 400 mg Documented By: LITO Metoprolol Succinate (Metoprolol Succ 50mg Ext Rel Tab) 50 mg PO [facility] Stop: 07/05/23 08:59 Last Admin: 06/07/23 09:21 Dose: 50 mg Documented By: Admin: 06/06/23 08:47 Dose: 50 mg Documented By: Admin: 06/05/23 07:37 Dose: 50 mg Documented By: LITO Montelukast Sodium (Montelukast Sodium 10 Mg Tablet) 10 mg PO [facility] Stop: 07/05/23 08:59 Last Admin: 06/07/23 09:21 Dose: 10 mg Documented By: Admin: 06/06/23 08:47 Dose: 10 mg Documented By: Admin: 06/05/23 07:38 Dose: 10 mg Documented By: LITO Perphenazine (Perphenazine 2 Mg Tablet) 4 mg PO HS EROS Stop: 07/04/23 20:59 Last Admin: 06/06/23 19:37 Dose: 4 mg Documented By: Admin: 06/05/23 20:35 Dose: 4 mg Documented By: Admin: 06/04/23 21:01 Dose: 4 mg Documented By: MAYCO Tizanidine HCl (Tizanidine Hcl 4 Mg Tablet) 4 mg PO BID PRN PRN Reason: muscle spasticity Stop: 07/04/23 18:56 Last Admin: 06/07/23 10:57 Dose: 4 mg Documented By: Admin: 06/06/23 19:36 Dose: 4 mg Documented By: Admin: 06/06/23 08:48 Dose: 4 mg Documented By: Admin: 06/05/23 22:25 Dose: 4 mg Documented By: Admin: 06/05/23 09:21 Dose: 4 mg Documented By: LITO Trazodone HCl (Trazodone Hcl 50 Mg Tab) 50 mg PO [facility] Stop: 07/04/23 20:59 Last Admin: 06/06/23 19:37 Dose: 50 mg Documented By: Admin: 06/05/23 20:35 Dose: 50 mg Documented By: Admin: 06/04/23 21:00 Dose: 50 mg Documented By: MAYCO Vitamin B Complex (Vitamin B Complex Tab) 1 tab PO DAILY EROS Stop: 07/05/23 08:59 Last Admin: 06/07/23 09:21 Dose: 1 tab Documented By: Admin: 06/06/23 08:47 Dose: 1 tab Documented By: Admin: 06/05/23 07:38 Dose: 1 tab Documented By: LITO Vitamin E (Tocopheryl, Dl-Alpha 400 Units 180 Mg Cap) 400 units PO BID EROS Stop: 07/04/23 20:59 Last Admin: 06/07/23 09:21 Dose: 400 units Documented By: Admin: 06/06/23 19:39 Dose: 400 units Documented By: Admin: 06/06/23 08:47 Dose: 400 units Documented By: Admin: 06/05/23 20:36 Dose: 400 units Documented By: Admin: 06/05/23 07:37 Dose: 400 units Documented By: Admin: 06/04/23 21:00 Dose: 400 units Documented By: MACYO Discontinued Medications Chlorthalidone (Chlorthalidone 25 Mg Tab) 25 mg PO QAM EROS Stop: 07/05/23 11:44 Last Admin: 06/06/23 08:48 Dose: 25 mg Documented By: Admin: 06/05/23 13:04 Dose: 25 mg Documented By: LITO Sodium Chloride (Nss) 1,000 mls @ 999 mls/hr IV .Q1H1M EROS Stop: 06/04/23 16:00 Last Infusion: 06/04/23 16:33 Dose: Infused Documented By: Admin: 06/04/23 15:25 Dose: 999 mls/hr Documented By: JERRY Cefepime HCl (Maxipime) 2,000 mg in 20 mls @ 5 mls/min IV NOW STA; Protocol Stop: 06/04/23 14:53 Last Admin: 06/04/23 16:05 Dose: 5 mls/min Documented By: JERRY Calcium Gluconate () 1,000 mg in 60 mls @ 240 mls/hr IV NOW STA Stop: 06/04/23 16:32 Last Infusion: 06/04/23 17:34 Dose: Infused Documented By: Admin: 06/04/23 16:45 Dose: 240 mls/hr Documented By: DAVID Magnesium Sulfate/Dextrose (Magnesium Sulfate / D5w) 1 gm in 100 mls @ 50 mls/hr IV ONE ONE Stop: 06/04/23 21:14 Last Infusion: 06/04/23 22:40 Dose: Infused Documented By: Admin: 06/04/23 19:43 Dose: 50 mls/hr Documented By: MAYCO Sodium Chloride (Nss) 1,000 mls @ 80 mls/hr IV .[id number] EROS Stop: 06/05/23 09:59 Last Infusion: 06/05/23 10:08 Dose: Infused Documented By: Admin: 06/04/23 21:34 Dose: 80 mls/hr Documented By: MAYCO Labetalol HCl (Labetalol Hcl Iv 5 Mg/Ml 20ml) 5 mg IV NOW STA Stop: 06/05/23 21:00 Last Admin: 06/05/23 21:15 Dose: 5 mg Documented By: LMP Co-signed By: CAMRON Lisinopril (Lisinopril 2.5 Mg Tab) 2.5 mg PO QAM EROS Stop: 07/05/23 15:44 Last Admin: 06/06/23 08:47 Dose: 2.5 mg Documented By: Admin: 06/05/23 16:10 Dose: 2.5 mg Documented By: LITO Magnesium Oxide (Magnesium Oxide 400 Mg Tab) 800 mg PO NOW STA Stop: 06/04/23 16:19 Last Admin: 06/04/23 16:47 Dose: 800 mg Documented By: DAVID Discharge Plan Visit Data Chief Complaint: Hypotension Stated Complaint: HYPOTENSION, STROKE SX ED Provider: Salomon Santos Discharge Problem: Acute hypotension, Acute dehydration, Slurred speech, ADI (acute kidney injury) Patient Disposition: Admitted As Inpatient Discharge Instructions Interventions: ED Discharge Assessment Last Done: 06/04/23 18:16
[2023-06-04] MEDS ORDERED: SODIUM CHLORIDE 0.9% 1,000 ML IV SCH ×2 (15:00→21:30)
--- NOTE | 2023-06-04 15:08 | XRay Report ---
XR chest 1V portable HISTORY: Sepsis COMPARISON: Chest 08/19/2019. FINDINGS: No pneumothorax. No pleural effusions. The cardiac silhouette remains normal in size. No ne w focal lung consolidations to suggest a pneumonia. No evidence for pulmonary edema. Mild chronic int erstitial thickening persists. Stable fullness within the right hilum. IMPRESSION: Stable mild chronic interstitial thickening. Otherwise, no acute process within the chest. ACT 112: Negative or not required by law. Electronically signed by: Pablo Gordon M.D. 06/04/2023 3:07 PM
[2023-06-04 15:41] LABS: Basophils # (auto) 0.04 K/uL (0.00-0.20); Basophils % (auto) 0.5 %; Eosinophils # (auto) 0.58 K/uL (0.00-0.50); Eosinophils % (auto) 6.6 %; Hematocrit (blood only) 32.3 % (37.0-47.0); Hemoglobin 11.2 g/dl (12.0-16.0); Immature Granulocytes # (auto) 0.02 K/uL (0.01-0.20); Immature Granulocytes % (auto) 0.2 %; Lymphocytes % (auto) 22.8 %; Mean Corpuscular Hemoglobin 31.3 pg (25.0-34.0); Mean Corpuscular Hgb Conc 34.7 g/dL (32.0-36.0); Mean Corpuscular Volume 90.2 fL (80.0-100.0); Mean Platelet Volume 12.2 fL (9.4-12.4); Monocytes % (auto) 9.1 %; Neutrophils # (auto) 5.35 K/uL (1.40-6.50); Neutrophils % (auto) 60.8 %; Platelet Count 205 K/uL (130-400); RDW Coefficient of Variation 12.6 % (11.5-14.5); RDW Standard Deviation 41.1 fL (36.4-46.3); Red Blood Count 3.58 M/uL (4.20-5.40); White Blood Count 8.79 K/ul (4.8-10.8)
[2023-06-04 15:54] LABS: Albumin Globulin Ratio 1.7 (0.9-2); Albumin Level 3.2 gm/dl (3.4-5.0); BUN Creatinine Ratio 19.9 (10-20); Bilirubin,Total 0.3 mg/dl (0.2-1.0); Calcium 7.9 mg/dl (8.6-10.3); Creatinine Clr Calc Pharmacy 27.9 ml/min; Est GFR (African American) 31.6 ml/min; Est GFR (Non-African American) 27.3 ml/min; Globulin 1.9 gm/dl (2.5-4.0); Magnesium 1.3 mg/dl (1.7-2.4); Potassium 3.7 mmol/L (3.5-5.1); Total Protein 5.1 gm/dl (6.0-8.3)
--- NOTE | 2023-06-04 15:56 | CT Scan Report ---
CT OF THE HEAD WITHOUT CONTRAST CLINICAL HISTORY: Slurred speech. COMPARISON STUDY: Head CT September 11, 2012. CT DOSE: 547.75 mGy.cm TECHNIQUE: Helical axial images of the head were obtained without IV contrast. Automated exposure con trol was utilized for the study. A dose lowering technique was utilized adhering to the principles o f ALARA. FINDINGS: No acute intracranial hemorrhage, midline shift or mass effect is present. A small hypodens ity within the left basal ganglia is unchanged. White matter hypodensities favor small vessel disease . The ventricular system is unremarkable. The basal cisterns are patent. No extra-axial collections a re present. There are no findings to suggest acute dural sinus thrombosis or acute territorial infarc t. No significant calvarial abnormalities are present. Visualized portions of the sinuses and mastoid air cells are clear. IMPRESSION: No acute intracranial findings. ACT 112: Negative or not required by law. Electronically signed by: Vinny Dobbins M.D. 06/04/2023 3:55 PM
[2023-06-04 16:09] LABS: Adenovirus PCR Not Detected (NotDetected); Bordetella parapertussis PCR Not Detected (NotDetected); Bordetella pertussis PCR Not Detected (NotDetected); Chlamydia pneumoniae PCR Not Detected (NotDetected); Coronavirus 229E PCR Not Detected (NotDetected); Coronavirus CoV-2 (COVID19)PCR Not Detected (NotDetected); Coronavirus HKU1 PCR Not Detected (NotDetected); Coronavirus NL63 PCR Not Detected (NotDetected); Coronavirus OC43PCR Not Detected (NotDetected); Human Metapneumovirus PCR Not Detected (NotDetected); Influenza A PCR Not Detected (NotDetected); Influenza B PCR Not Detected (NotDetected); Mycoplasma pneumoniae PCR Not Detected (NotDetected); Parainfluenza Virus 1 PCR Not Detected (NotDetected); Parainfluenza Virus 2 PCR Not Detected (NotDetected); Parainfluenza Virus 3 PCR Not Detected (NotDetected); Parainfluenza Virus 4 PCR Not Detected (NotDetected); Respiratory Syncytial VirusPCR Not Detected (NotDetected); Rhinovirus/Enterovirus PCR Not Detected (NotDetected)
[2023-06-04] MEDS ORDERED: MAGNESIUM OXIDE 400 MG TAB PO STA (16:18)
[2023-06-04] MEDS ORDERED: CALCIUM GLUCONATE 1,000 MG/60 ML BAG IV STA (16:18)
[2023-06-04 16:21] LABS: Appearance Urine Clear (Clear); Bacteria Urine Automated Negative (Negative); Bilirubin Urine Negative (Negative); Blood Urine Trace (Negative); Color Urine Yellow; Epithelial Cell Urine Auto 20-30 /lpf (0-5); Glucose Urine UA Negative (Negative); Ketones Urine Negative (Negative); Leukocyte Esterase Urine Negative (Negative); Nitrite Urine Negative (Negative); Protein Urine Negative (Negative); RBC Urine Automated 0-4 /hpf (0-4); Specific Gravity Urine 1.011 (1.000-1.030); Urobilinogen Urine Negative (Negative); WBC Urine Automated 0 /hpf (0-5); pH Urine 5.5 (4.5-7.5)
--- NOTE | 2023-06-04 17:05 | History & Physical Report ---
Date of Service June 04, 2023 Assessment & Plan (1) Hypotensive episode: Plan: Present on admission with low BP associated with slurred speech Systolic BP on presentation was in the 60's Possible related to hypovolemia Received Epinephrine that was administered by EMS and IVF Will hold Lisinopril, Chlorthalidone for now now Received IV cefepime Procalcitonin, Lactate, WBC are wnl Will hold on additional abx for now since there is no evidence of infection Continue gentle IVF hydration Continue monitor BP closely Slurred Speech Mostly due to hypotension CT head showed no acute intracranial abnormality No focal neuro deficit on exam If develops any neurological symptoms, consider to get MRI of brain Clinically resolved Acute kidney injury Mostly related to hypotension Creatinine 1.8 on admission Lisinopril, Chlorthalidone and diclofenac Avoid nephrotoxic agents Continue monitor BMP Hypomagnesium Mg 1.3 on admission Mg replaced Continue monitor electrolytes Diabetes mellitus, type II: Hold home Metformin Will check Hba1c BSG AC HS COPD (chronic obstructive pulmonary disease): Continue home inhalers Nocturnal hypoxemia: On 2L O2 HS History of heart attack: [facility]. Medically managed with aspirin, statin and beta hector. Will resume beta hector once BP improves Hypertension: Currently hypotensive - holding home medications Hypothyroidism: Continue levothyroxine Anxiety and depression: Continue Perphenazine and Doxepin and celexa DVT px on heparin subq Code status Full code History of Present Illness Chief Complaint: Slurred speech Primary Care Provider: Patti Posadas MD 72 yo male with PMH of HTN, hypothyroidism, diabetes, Depression, left hip replacement was brought by EMS due to slurred speech. She said the feels dizzy. She said that she has low appetite. She said that she did not feel herself. She was found to be hypotensive in the 60's by EMS. Epinephrine and IVF administered by EMS. In the ER she received additional IVF. Her BP improves and her slurred speech resolved. Patient currently denies any headache, blurry vision, palpitation, weakness, chest pain, dysuria, nausea, vomiting or diarrhea. Allergies Allergy/AdvReac Type Severity Reaction Status Date / Time Sulfa (Sulfonamide Allergy Severe face Verified 05/13/23 14:03 Antibiotics) tongue lips swelling,HEADACHE amoxicillin AdvReac Intermediate YEAST Verified 05/13/23 14:03 INFECTION clavulanic acid AdvReac Intermediate YEAST Verified 05/13/23 14:03 INFECTION codeine AdvReac Mild N/V Verified 05/13/23 14:03 Home Medications Medication Instructions Recorded Confirmed Type atorvastatin 10 mg tablet 10 mg PO HS 08/14/19 06/04/23 History cetirizine 10 mg tablet 10 mg PO QAM 08/14/19 06/04/23 History doxepin 25 mg capsule 25 mg PO HS 08/14/19 06/04/23 History levothyroxine 125 mcg capsule 125 mcg PO DAILYBB 08/14/19 06/04/23 History perphenazine 2 mg tablet 4 mg PO HS 08/14/19 06/04/23 History trazodone 50 mg tablet 50 mg PO HS 08/14/19 06/04/23 History famotidine 20 mg tablet 20 mg PO AMHS 08/19/19 06/04/23 History tizanidine 4 mg tablet 4 mg PO BID PRN muscle spasticity 04/25/23 06/04/23 Rx #30 tabs ascorbic acid (vitamin C) 1,000 mg 1 g PO DAILY 05/13/23 06/04/23 History tablet chlorthalidone 25 mg tablet 50 mg PO QAM 05/13/23 06/04/23 History diclofenac sodium 1 % topical gel 2 g topical DAILY 05/13/23 06/04/23 History diclofenac sodium 75 mg 75 mg PO BID #60 tabs 05/13/23 06/04/23 Rx tablet,delayed release hydroxyzine HCl 25 mg tablet 25 mg PO BID PRN Anxiety 05/13/23 06/04/23 History lisinopril 5 mg tablet 5 mg PO QAM 05/13/23 06/04/23 History metoprolol succinate 50 mg 50 mg PO QAM 05/13/23 06/04/23 History tablet,extended release 24 hr montelukast 10 mg tablet 10 mg PO QAM 05/13/23 06/04/23 History vitamin B complex 1 cap PO DAILY 05/13/23 06/04/23 History aspirin 81 mg tablet,delayed 81 mg PO QAM 06/04/23 06/04/23 History release citalopram 10 mg tablet 10 mg PO QAM 06/04/23 06/04/23 History citalopram 20 mg tablet 20 mg PO QAM 06/04/23 06/04/23 History fluticasone propionate 50 1 spray intranasal QPM 06/04/23 06/04/23 History mcg/actuation nasal spray,suspension lorazepam 0.5 mg tablet 0.5 mg PO HS PRN as directed 06/04/23 06/04/23 History metformin 500 mg tablet 500 mg PO BIDM 06/04/23 06/04/23 History omega-3 300 mg-dha 120 mg-epa 180 1 cap PO BID 06/04/23 06/04/23 History mg-fish oil 1,000 mg capsule turmeric 450 mg-turmeric root 1 cap PO QAM 06/04/23 06/04/23 History extract 50 mg capsule vitamin E (dl, acetate) 180 mg 180 mg PO BID 06/04/23 06/04/23 History (400 unit) capsule Past Med/Surg History Medical History Hypotensive episode Diabetes mellitus, type II COPD (chronic obstructive pulmonary disease) Nocturnal hypoxemia 2L O2 HS Obesity Hypothyroidism Dyslipidemia Fatty liver Acid reflux well controlled Arthritis Degenerative disc disease Sciatica Anxiety and depression Thyroid enlarged no dysphagia Asthma mild, "well controlled and stable", rare inhaler use History of heart attack 1996- medically managed Hypertension Surgical History History of total left hip arthroplasty (~11/2019) History of colonoscopy History of left cataract surgery History of right cataract surgery History of right hip replacement History of hysterectomy History of hernia repair History of cardiac cath FOLLOWING HEART ATTACK, NO FINDINGS 1996 Family History Mother Family history of diabetes mellitus Aunt Family history of diabetes mellitus Son Family history of colon cancer Social History Smoking Status: Former smoker Smoking End Date: 12 years ago; Second Hand Exposure: Yes; Do You Dip or Chew Tobacco: No; Tobacco Cessation Education Requested by Patient: No Hx Alcohol Use: No Hx Substance Use: No Preferred Language: Georgian Communication Ability: Effective Visual Impairment: No Limitations Hearing Ability: Normal Icu Tech Required: No Beliefs That Will Affect Care: None Current Living Situation: Alone Current Living Situation Comment: Lives in [facility] independent living current occupational status: retired Other Information That Helps Us Care for You: No Feels Safe at Home: Yes Safety Concerns: Feels Safe At This Time Safety Concerns Comment: office of aging is visiting her tomorrow regarding getting more help @ home Assistive Devices: Cane, CPAP, Denture - Upper and Walker Review of Systems Review of Systems: All systems reviewed & are unremarkable except as noted in HPI & below Physical Exam Physical Exam: General- No acute distress Head- atraumatic Eyes- PERRL, EOMI, ENT- oropharynx clear Neck- supple, no JVD Lungs- clear to auscultation Heart- regular rhythm; no murmur Abdomen- normal bowel sounds, soft, nontender Extremities- no calf tenderness Neuro- alert, oriented x 3; PERRL, EOMI; no facial palsy; no dysarthria Skin- warm & dry Results & Data Results & Data Vital Signs (Past 12 Hours) Vital Signs Temp Pulse Pulse Resp BP BP Pulse Ox 06/04/23 16:47 71 20 144/87 H 98 06/04/23 16:33 70 20 117/73 98 06/04/23 16:00 112/63 06/04/23 16:00 67 18 93 06/04/23 15:51 108/48 L 06/04/23 15:51 66 18 99 06/04/23 15:50 67 23 97 06/04/23 15:49 66 19 06/04/23 15:30 89/48 L 06/04/23 15:30 62 17 89/48 L 96 06/04/23 15:26 98/37 L 06/04/23 15:26 64 17 97 06/04/23 15:22 62 23 95 06/04/23 15:22 72/44 L 06/04/23 15:21 62 20 72/44 L 95 06/04/23 15:20 62 24 96 06/04/23 15:14 63 16 96 06/04/23 15:10 70 17 94 06/04/23 15:06 62 12 93 06/04/23 15:06 67/45 L 06/04/23 15:06 67/45 L 06/04/23 15:01 64 16 73/49 L 97 06/04/23 15:00 73/49 L 06/04/23 15:00 63 14 98 06/04/23 15:00 95 06/04/23 14:57 06/04/23 14:50 65 17 93 12/19/23 14:50 65 06/04/23 14:49 36.5 C 64 14 82/51 L 96 O2 Del Method 06/04/23 16:47 Room Air 06/04/23 16:33 Room Air 06/04/23 16:00 06/04/23 16:00 06/04/23 15:51 06/04/23 15:51 06/04/23 15:50 06/04/23 15:49 06/04/23 15:30 06/04/23 15:30 06/04/23 15:26 06/04/23 15:26 06/04/23 15:22 06/04/23 15:22 06/04/23 15:21 Room Air 06/04/23 15:20 06/04/23 15:14 06/04/23 15:10 06/04/23 15:06 06/04/23 15:06 06/04/23 15:06 06/04/23 15:01 Room Air 06/04/23 15:00 06/04/23 15:00 06/04/23 15:00 Room Air 06/04/23 14:57 Room Air 06/04/23 14:50 06/04/23 14:50 06/04/23 14:49 Room Air Diagnostic Findings Laboratory Results WBC 8.79 K/ul (4.8-10.8) 06/04/23 14:52 RBC 3.58 M/uL (4.20-5.40) L 06/04/23 14:52 Hgb 11.2 g/dl (12.0-16.0) L 06/04/23 14:52 Hct 32.3 % (37.0-47.0) L 06/04/23 14:52 MCV 90.2 fL (80.0-100.0) 06/04/23 14:52 MCH 31.3 pg (25.0-34.0) 06/04/23 14:52 MCHC 34.7 g/dL (32.0-36.0) 06/04/23 14:52 RDW Std Deviation 41.1 fL (36.4-46.3) 06/04/23 14:52 RDW Coeff of Jennifer 12.6 % (11.5-14.5) 06/04/23 14:52 Plt Count 205 K/uL (130-400) 06/04/23 14:52 MPV 12.2 fL (9.4-12.4) 06/04/23 14:52 Immature Gran % (Auto) 0.2 % 06/04/23 14:52 Neut % (Auto) 60.8 % 06/04/23 14:52 Lymph % (Auto) 22.8 % 06/04/23 14:52 Lake % (Auto) 9.1 % 06/04/23 14:52 Eos % (Auto) 6.6 % 06/04/23 14:52 Baso % (Auto) 0.5 % 06/04/23 14:52 Neut # (Auto) 5.35 K/uL (1.40-6.50) 06/04/23 14:52 Lymph # (Auto) 2.00 K/uL (1.20-3.40) 06/04/23 14:52 Lake # (Auto) 0.80 K/uL (0.11-0.59) H 06/04/23 14:52 Eos # (Auto) 0.58 K/uL (0.00-0.50) H 06/04/23 14:52 Baso # (Auto) 0.04 K/uL (0.00-0.20) 06/04/23 14:52 Immature Gran # (Auto) 0.02 K/uL (0.01-0.20) 06/04/23 14:52 Sodium 137 mmol/L (136-145) 06/04/23 14:52 Potassium 3.7 mmol/L (3.5-5.1) 06/04/23 14:52 Chloride 103 mmol/L (98-107) 06/04/23 14:52 Carbon Dioxide 28 mmol/L (21-32) 06/04/23 14:52 Anion Gap 6 (3-11) 06/04/23 14:52 BUN 36 mg/dl (6-23) H 06/04/23 14:52 Creatinine 1.81 mg/dl (0.6-1.2) H 06/04/23 14:52 Est Cr Clr Drug Dosing 27.9 ml/min 06/04/23 14:52 Est GFR ( Amer) 31.6 ml/min 06/04/23 14:52 Est GFR (Non-Af Amer) 27.3 ml/min 06/04/23 14:52 BUN/Creatinine Ratio 19.9 (10-20) 06/04/23 14:52 Glucose 103 mg/dl (70-99(Fasting)) H 06/04/23 14:52 Lactate 1.5 mmol/L (0.4-2.0) 06/04/23 14:52 Calcium 7.9 mg/dl (8.6-10.3) L 06/04/23 14:52 Magnesium 1.3 mg/dl (1.7-2.4) L 06/04/23 14:52 Total Bilirubin 0.3 mg/dl (0.2-1.0) 06/04/23 14:52 AST 17 U/L (13-39) 06/04/23 14:52 ALT 23 U/L (7-52) 06/04/23 14:52 Alkaline Phosphatase 35 U/L (34-104) 06/04/23 14:52 Total Protein 5.1 gm/dl (6.0-8.3) L 06/04/23 14:52 Albumin 3.2 gm/dl (3.4-5.0) L 06/04/23 14:52 Globulin 1.9 gm/dl (2.5-4.0) L 06/04/23 14:52 Albumin/Globulin Ratio 1.7 (0.9-2) 06/04/23 14:52 Procalcitonin < 0.05 ng/ml (0-0.5) 06/04/23 14:52 Urine Color Yellow 06/04/23 15:57 Urine Appearance Clear (Clear) 06/04/23 15:57 Urine pH 5.5 (4.5-7.5) 06/04/23 15:57 Ur Specific [place] 1.011 (1.000-1.030) 06/04/23 15:57 Urine Protein Negative (Negative) 06/04/23 15:57 Urine Glucose (UA) Negative (Negative) 06/04/23 15:57 Urine Ketones Negative (Negative) 06/04/23 15:57 Urine Blood Trace (Negative) H 06/04/23 15:57 Urine Nitrite Negative (Negative) 06/04/23 15:57 Urine Bilirubin Negative (Negative) 06/04/23 15:57 Urine Urobilinogen Negative (Negative) 06/04/23 15:57 Ur Leukocyte Esterase Negative (Negative) 06/04/23 15:57 Urine WBC (Auto) 0 /hpf (0-5) 06/04/23 15:57 Urine RBC (Auto) 0-4 /hpf (0-4) 06/04/23 15:57 U Hyaline Cast (Auto) 1-5 /lpf (0-5) 06/04/23 15:57 U Epithel Cells (Auto) 20-30 /lpf (0-5) H 06/04/23 15:57 Urine Bacteria (Auto) Negative (Negative) 06/04/23 15:57 Adenovirus (PCR) Not Detected (NotDetected) 06/04/23 15:09 B. pertussis DNA (PCR) Not Detected (NotDetected) 06/04/23 15:09 B.parapertussis DNA PCR Not Detected (NotDetected) 06/04/23 15:09 C. pneumoniae DNA (PCR) Not Detected (NotDetected) 06/04/23 15:09 Coronavirus OC43 (PCR) Not Detected (NotDetected) 06/04/23 15:09 Coronavirus HKU1 (PCR) Not Detected (NotDetected) 06/04/23 15:09 Coronavirus 229E (PCR) Not Detected (NotDetected) 06/04/23 15:09 SARS-CoV-2 (PCR) Not Detected (NotDetected) 06/04/23 15:09 Coronavirus NL63 (PCR) Not Detected (NotDetected) 06/04/23 15:09 Human Metapneumovir PCR Not Detected (NotDetected) 06/04/23 15:09 Influenza Type A (PCR) Not Detected (NotDetected) 06/04/23 15:09 Influenza Type B (PCR) Not Detected (NotDetected) 06/04/23 15:09 M. pneumoniae (PCR) Not Detected (NotDetected) 06/04/23 15:09 Parainfluenza 1 (PCR) Not Detected (NotDetected) 06/04/23 15:09 Parainfluenza 2 (PCR) Not Detected (NotDetected) 06/04/23 15:09 Parainfluenza 3 (PCR) Not Detected (NotDetected) 06/04/23 15:09 Parainfluenza 4 (PCR) Not Detected (NotDetected) 06/04/23 15:09 RSV (PCR) Not Detected (NotDetected) 06/04/23 15:09 Entero/Rhino (PCR) Not Detected (NotDetected) 06/04/23 15:09 Impressions Chest X-Ray 06/04/23 14:50 XR chest 1V portable HISTORY: Sepsis COMPARISON: Chest 08/19/2019. FINDINGS: No pneumothorax. No pleural effusions. The cardiac silhouette remains normal in size. No new focal lung consolidations to suggest a pneumonia. No evidence for pulmonary edema. Mild chronic interstitial thickening persists. Stable fullness within the right hilum. IMPRESSION: Stable mild chronic interstitial thickening. Otherwise, no acute process within the chest. ACT 112: Negative or not required by law. Electronically signed by: Pablo Gordon M.D. 06/04/2023 3:[address] 06/04/23 14:50 CT OF THE HEAD WITHOUT CONTRAST CLINICAL HISTORY: Slurred speech. COMPARISON STUDY: Head CT September 11, 2012. CT DOSE: 547.75 mGy.cm TECHNIQUE: Helical axial images of the head were obtained without IV contrast. Automated exposure control was utilized for the study. A dose lowering technique was utilized adhering to the principles of ALARA. FINDINGS: No acute intracranial hemorrhage, midline shift or mass effect is present. A small hypodensity within the left basal ganglia is unchanged. White matter hypodensities favor small vessel disease. The ventricular system is unremarkable. The basal cisterns are patent. No extra-axial collections are present. There are no findings to suggest acute dural sinus thrombosis or acute territorial infarct. No significant calvarial abnormalities are present. Visualized portions of the sinuses and mastoid air cells are clear. IMPRESSION: No acute intracranial findings. ACT 112: Negative or not required by law. Electronically signed by: Vinny Dobbins M.D. 06/04/2023 3:55 PM
[2023-06-04] MEDS ORDERED: MAGNESIUM SULFATE / D5W 1 GM/100 ML BAG IV ONE (19:15)
[2023-06-04] MEDS: LORazepam 0.5 MG TAB PO PRN (20:59)
[2023-06-04] MEDS: DOXEPIN HCL 25 MG CAPSULE PO SCH (20:59)
[2023-06-04] MEDS: ATORVASTATIN 10 MG TAB PO SCH (20:59)
[2023-06-04] MEDS: FAMOTIDINE 20 MG TAB PO SCH (21:00)
[2023-06-04] MEDS: OMEGA-3 (PURIFIED FISH OIL) 1 GM CAP PO SCH (21:00)
[2023-06-04] MEDS: TOCOPHERYL, DL-ALPHA 400 UNITS 180 MG CAP PO SCH (21:00)
[2023-06-04] MEDS: traZODone HCL 50 MG TAB PO SCH (21:00)
[2023-06-04] MEDS: PERPHENAZINE 2 MG TAB PO SCH (21:01)
[2023-06-04] MEDS: HEPARIN SOD 5,000 UNIT/0.5 ML VIAL SQ SCH (21:02)
[2023-06-04] MEDS ORDERED: DEXTROSE 50% 50 ML SYRINGE IV PRN (21:35)
[2023-06-04] MEDS ORDERED: GLUCOSE 10 TAB/TUBE PO PRN (21:35)
[2023-06-04] MEDS ORDERED: GLUCOSE 40% GEL 15 GM TUBE PO PRN (21:35)
--- OUTSIDE RECORDS SUMMARY | 2023-06-05 00:32 | External Medical Summary | Summary of Care ---
Author Name Unknown Organization [facility] Address [address] [place] [address] Phone [phone] Care Team Providers Care [place] [employer] Name Role Phone Patti Posadas MD Primary Care Provider [phone] Reason for Visit * Reason Onset Date Comments Forms Request 05/28/2023 Waiver form Encounter Details Date Type Department Care Team (Late st Contact Info) Description 05/28/2023 Telephone Merged With [facility] [address] [place] [address] Patti Posadas MD [address] [place] [address] Forms Request (Waiver form ) Allergies Active Allergy Reactions Criticality Noted Date Comments Amoxicillin-Pot Clavulanate Other (Please comment) 01/14/2015 Severe Yeast infection Morphine And Related Unknown 02/19/2003 Codeine makes her vomit Sulfa Antibiotics Edema face/lips/tongue,Oth er (Please comment) High 02/19/2003 Headache documented as of this encounter (statuses as of 05/31/2023) Medications Medication Sig Dispensed Refills Start Date End Date Status PERPHENAZINE 2 MG PO TABS one to two tablets at bedtime 0 4 Active LORAzepam (ATIVAN) 0.5 MG Tablet Take 1 Tablet by mouth at bedtime as needed for Anxiety or Insomnia. 30 Tab 0 6 Active [place]-3 Fatty Acids (FISH OIL) 1200 MG CAPS Take 1 Cap by mouth daily. 0 Active doxepin (SINEQUAN) 25 MG Capsule Take 1 Cap by mouth at bedtime. 90 Cap 3 7 Active traZODone (DESYREL) 50 MG Tablet Take 1 Tablet by mouth at bedtime. 30 Tab 5 8 Active Ipratropium-Albuter ol 20-100 MCG/ACT Inhalation Aerosol Solution (Combivent Respimat) (1) inhalation 4 times daily - please note change 18 g 3 2 Active Additional Information Patient not taking.Reported on 03/04/2023 hydrOXYzine HCl 25 MG Oral Tablet Take 1 Tablet by mouth 2 times a day as needed. 0 2 Active Nystatin 228323 UNIT/GM External Powder (Nystop)Indications :Candidal skin infection Apply topically to affected area 3 times a day . 30 g 3 2 Active Depend Underwear X-Large Use 3-4 depends per day 130 Each 11 2 Active Albuterol Sulfate (2.5 MG/3ML) 0.083% Inhalation Nebulization Solution (Proventil)Indicati ons:COPD, mild (HCC),Centrilobular emphysema (HCC),Hypoxemia INHALE 1 VIAL VIA NEBULIZER EVERY 4 HOURS NEEDED FOR WHEEZING OR SHORTNESS OF BREATHE (CHEST PRESSURE) 300 mL 5 2 Active CPAP every night at bedtime. 0 Active Fluticasone Propionate 50 MCG/ACT Nasal Suspension (Flonase)Indication s:Chronic rhinitis INSTILL 2 SPRAYS INTO EACH NOSTRIL DAILY 48 g 3 3 Active Fluticasone-Salmete rol 250-50 MCG/ACT Inhalation Aerosol Powder Breath Activated (Advair Diskus) Inhale 1 Puff by mouth in the morning and 1 Puff before bedtime. 180 Each 3 3 Active Nystatin 506498 UNIT/GM External CreamIndications:Ca ndidal skin infection Apply topically to affected area 2 times a day. for two weeks. 60 g 1 3 Active Garlic 1000 MG Oral Capsule Take 1 Capsule by mouth in the morning. 90 Capsule 1 3 Active Olopatadine HCl 0.2 % Ophthalmic Solution Instill 1 Drop into eye in the morning. 15 mL 3 3 Active Diclofenac Sodium 1 % External Gel (Voltaren) Apply 1 g topically to affected area in the morning and 1 g before bedtime. 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 To affected area. 60 g 1 3 Active Levothyroxine Sodium 125 MCG Oral Tablet (Levoxyl)Indication s:Acquired hypothyroidism TAKE ONE TABLET BY MOUTH EVERY DAY AT LEAST 30 MINUTES PRIOR TO BREAKFAST OR OTHER MEDICATIONS 90 Tablet 1 3 Active Montelukast Sodium 10 MG Oral Tablet (Singulair)Indicati ons:Allergic rhinitis due to other allergic trigger, unspecified seasonality TAKE ONE TABLET BY MOUTH EVERY MORNING 90 Tablet 1 3 Active Cetirizine HCl 10 MG Oral Tablet (ZyrTEC) TAKE ONE TABLET BY MOUTH EVERY MORNING 90 Tablet 1 3 Active Atorvastatin Calcium 10 MG Oral Tablet (Lipitor)Indication s:Dyslipidemia TAKE ONE TABLET BY MOUTH EVERY MORNING 90 Tablet 1 3 Active Lisinopril 5 MG Oral Tablet (Prinivil) Take 1 Tablet by mouth in the morning. 90 Tablet 3 3 Active Vitamin E 180 MG (400 UNIT) Oral Capsule TAKE ONE CAPSULE BY MOUTH TWICE DAILY 56 Capsule 11 3 Active Fish Oil 1000 MG Oral Capsule TAKE ONE CAPSULE BY MOUTH TWICE DAILY 56 Capsule 11 3 Active Vitamin C 1000 MG Oral Tablet TAKE ONE TABLET BY MOUTH EVERY DAY 28 Tablet 11 3 Active Vitamin B Complex Oral Capsule TAKE ONE CAPSULE BY MOUTH EVERY DAY 28 Capsule 11 3 Active methylPREDNISolone 4 MG Oral Tablet Therapy Pack (Medrol Dosepack) follow package directions 21 Tablet 0 3 Active Diclofenac Sodium 75 MG Oral Tablet Delayed Release (Voltaren) Take 1 Tablet by mouth in the morning and 1 Tablet before bedtime. With food.. 60 Tablet 3 3 Active metFORMIN HCl 500 MG Oral Tablet (Glucophage) TAKE ONE TABLET BY MOUTH TWICE DAILY with morning and evening meals 180 Tablet 1 3 Active Famotidine 20 MG Oral Tablet (Pepcid) TAKE ONE TABLET BY MOUTH EVERY MORNING and TAKE ONE TABLET AT BEDTIME 180 Tablet 1 3 Active Turmeric Curcumin 500 MG Oral Capsule TAKE ONE CAPSULE BY MOUTH EVERY MORNING 90 Capsule 1 3 Active Metoprolol Succinate ER 50 MG Oral Tablet Extended Release 24 Hour (toPROL XL)Indications:HTN, goal below 140/90 TAKE ONE TABLET BY MOUTH EVERY MORNING 90 Tablet 1 3 Active Chlorthalidone 50 MG Oral Tablet (Hygroton) TAKE ONE TABLET BY MOUTH EVERY MORNING 90 Tablet 1 3 Active Aspirin Low Dose 81 MG Oral Tablet Delayed Release (aspirin enteric coated) TAKE ONE TABLET BY MOUTH EVERY MORNING 90 Tablet 3 3 Active Baclofen 10 MG Oral Tablet (Lioresal) Take 1 Tablet by mouth in the morning and 1 Tablet before bedtime. 60 Tablet 3 3 05/30/20 23 Discontinued documented as of this encounter (statuses as of 05/31/2023) Active Problems Problem Noted Date Diagnosed Date DDD (degenerative disc disease), thoracic 2022 COPD, group B, by GOLD 2017 classification 05/28 Overview: Per COPD GOLD Classification Chronic kidney disease, stage 3a 11/29/2020 Overview: Per CKD protocol Benign hypertension with stage 3a chronic kidney disease 10/25/2020 Overview: Per CKD protocol Type 2 diabetes mellitus wit h stage 3a chronic kidney disease 10/25/2020 Overview: Per CKD protocol Major depressive disorder, recurrent, unspecifie d 08/31/2020 Nocturnal hypoxemia 08/17/2020 History of tobacco abuse 08/17/2020 Periodic limb movement disorder (PLMD) 0 Need for prophylactic vaccin ation and inoculation against influenza 02/17/2020 GERARDO (generalized anxiety disorder) 03/25/2018 Gastroesophageal reflux disease 03/25/2018 Old NH (myocardial infarction) 03/25/2018 Severe obesity with body mas s index (BMI) of 35.0 to 39.9 with serious comorbidity 04/29/2017 Mild persistent asthma without complication 02/15 Type 2 diabetes mellitus wit h hemoglobin A1c goal of less than 7.0% 02/25/2017 Acquired hypothyroidism 12/20/2016 Centrilobular emphysema 05/08/2016 Dyslipidemia, goal LDL below 100 07/04/2009 HTN, GOAL BELOW 140/90 04/22/2009 Overview: Modified per HTN Taxonomy. DDD (degenerative disc disease), lumbar 04/02/20 05 Insomnia 02/19/2003 Overview: ICD-10 update of inactive term documented as of this encounter (statuses as of 05/31/2023) Resolved Problems Problem Noted Date Diagnosed Date Resolved Date Diabetes mellitus with stage 3 chronic kidney disease 04/25/2020 10/27/2020 Overview: Per CKD protocol COPD, severity to be determined 02/17/2020 02/25/2020 Overview: Per COPD GOLD Classification Type 2 diabetes mellitus wit h stage 3 chronic kidney disease, without long-term current use of insulin 04/29/2017 04/28/2020 Overview: Per CKD protocol Body mass index (BMI) of 40. 0 to 44.9 in adult 03/18/2017 04/29/2017 Overview: Per Obesity protocol #1 Benign hypertension with CKD (chronic kidney disease) stage III 02/25/2017 10/27/2020 Overview: Per CKD protocol COPD, mild 01/29/2017 02/17/2020 Kidney disease, chronic, sta ge III (GFR 30-59 ml/min) 08/30/2014 09/27/2017 Overview: Per CKD protocol #1 Hypoxemia 11/06/2011 02/25/2017 Overview: 11/07/11 oxygen at 2 LPM during sleep, T and B Shortness of breath 08/29/2011 12/21/19 17 Overview: 08/23/11 - Normal PFT and 6 MWT Genetic Sleep Disorder [facility] Other*[id number] 08/27/2011 01/18/2016 Routine general medical exam ination at a health care facility 08/09/2011 12/20/2016 Overview: 08/28 likely COPD per pulm consult, although PFTs looked essentially normal. Cardiac testing ordered hosp 07/25-08/03/11 likely w/COPD exacerbation responded to steroids, abx. Acute bronchitis, complicated 04/02/2011 08/09/2011 ADVANCE DIRECTIVE INFORMATION 11/20/2005 04/29/2017 Overview: Declined information History of tobacco use 05/22/200403/04 OSTEOARTHRO NOS-OTH SITE 02/19/200304/2017 Anxiety state 02/19/2003 03/25/2018 Inflammation of sacroiliac joint 02/19/2003 08/22/2015 BENIGN HYPERTENSION 02/19/2003 04/22/20 09 Overview: Modified per HTN Taxonomy. documented as of this encounter (statuses as of 05/31/2023) Immunizations Name Administration Dates Next Due COVID-19 mRNA, LNP-s, No Pre serve, 2-Dose Series (Moderna) 05/02/2021,08/10/2020,07/13/2020 H1N1 2009 Influenza, IM 07/01/2009 Pneumococcal Conjugate Vacc, 13 Valent (Prevnar) 08/16/2014 Pneumococcal Polysaccharide PPV23 (Pneumovax) 08/27/2016,05/08/2011,03/21/2004 Season Influenza, Cell Cultu re, 18+ Yrs, With Preserv (Flucelvax) 04/15/2013 Season Influenza, Quad, PF, Adjuvanted, 65+ Yrs, IM (FLUAD) 02/17/2020 Seasonal Influenza, PF, 6 M & above, IM , (FluLaval or Fluzone) 04/01/2019,03/25/2018,03/26/2017 03/25/2019 Seasonal Influenza, Quadriva lent Hd (Fluzone Hd) 02/23/2023,02/23/2022,03/10/2021 Seasonal Influenza, Quadriva lent, No Preserve, IM 02/28/2016 Seasonal Influenza, Split, I IV3, With Preserve, Inj 02/16/2015,02/16/2014,09/12/2012,11/0 12/2010,05/19/2010,07/01/2009,04/29/20 07,03/21/2004,04/07/2003 TDAP (age 10 and older)(Boostrix) 08/31/2020 TDAP (age 11 and older)(Adacel) 05/19/2010,07/20 documented as of this encounter Social History Tobacco Use Types Packs/Day Years Used Date Smoking Tobacco: Former Cigarettes 2 30 Q uit: 07/29/2011 Passive Smoke Exposure: Never Smokeless Tobacco: Never Alcohol Use Standard Drinks/Week Comments No 0 (1 standard drink = 0.6 oz pur e alcohol) PHQ-2 Answer Date Recorded PHQ Adult Total Score 11 08/12/2020 Hunger Vital Sign Answer Date Recorded Worried About Running Out of Food in the Last Ye ar Never true 04/01/2019 Ran Out of Food in the Last Year Never true 04/01/2019 Sex and Gender Information Value Date Recorded Sex Assigned at Not on file Gender Identity Not on file Sexual Orientation Not on file Job Start Date Occupation Industry Not on file Not on file Not on file documented as of this encounter Miscellaneous Notes * Telephone Encounter - Chris Verma OSA - 05/31/2023 8:43 AM EST Caller requesting the following information to be faxed: Name/Company of caller: patient Information requested to be faxed: waiver form Fax number: [phone] Attention to Name/Company: not given Any additional information?: * Telephone Encounter - Jennifer Bower LPN - 05/29/2023 11:23 AM EST Form placed on Dr Posadas's desk on 05/29/2023 * Telephone Encounter - Teresa Chau OSA - 05/29/2023 10:26 AM EST PT is calling in regards to the previous messages. She wants to make sure that she needs to come in or if the forms could just be completed. Spoke to the office and they confirmed for home health that there are some questions that need answered and the appointment should be kept. PT made aware, no further questions. 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 They do need to have this form completed or they will not be able to process the application form. This will be for the recent back issues M48.062 M43.10 that she was diagnosed with that require to home theater specialist. Noris will be faxing over the forms to be completed and asked to have these done as soon as possible. Please fax when completed to [phone] Pt does have an appt on 05/30 for this but if she doesn't need to come in please advise. documented in this encounter Plan of Treatment Upcoming Encounters Date Type Department Care Team (Late st Contact Info) Description 09/02/2023 12:20 PM EDT Office Visit Merged With [facility] [address] [facility] [place] [address] Patti Posadas MD [address] [facility] [place] [address] Scheduled Procedures Name Priority Associated Diagnoses Date/Ti me COLONOSCOPY FLEXIBLE PROXIMAL DIAGNOSTIC Recall History of colon polyps Health Maintenance Due Date Last Done Comments Alpha-1 Antitrypsin 12/20/1967 Zoster Vaccines (1 of 2) 12/20/1999 Hepatitis B (1 of 3 - Risk 3-dose series) 2009 Depression, Most Recent Score >= 10 (will fire each visit until score < 10) 08/13/2020 08/12/2020 Diabetic Eye Exam 08/08/2022 08/08/2021, , 08/01/2020, Additional history exists COLONOSCOPY-EVERY 5 YRS AGES 18-100 01/28/2023 01/28/2018, 01/28/2018, 10/13/2013, Additional history exists Mammogram 02/06/2023 02/06/2022, 01/16, 01/24/2022, Additional history exists COVID-19 Vaccine ( season) 2023 05/02/2021, 08/10/2020, 07/13/2020 CKD PHOS USE SMARTSET 90293 03/12/20232 11/2021, 02/22/2021, 02/10/2020, Additional history exists Albumin/Creatinine Ratio 08/29/2023 023, 08/14/2021, 08/12/2020, Additional history exists GFR 09/02/2023 03/04/2023, 07/0 08/2022, 08/28/2022, Additional history exists HbA1c 09/02/2023 03/04/2023, 08/15, 03/12/2022, Additional history exists B-12 03/04/2024 03/04/2023, 08/15, 02/22/2021, Additional history exists CKD HGB USE SMARTSET 39052 03/04/202403/04, 12/17/2022, 12/17/2022, Additional history exists Diabetic Foot Exam 03/04/2024 03/04/2023, 0 02/07/2021, 02/10/2020, Additional history exists TSH 03/04/2024 03/04/2023, 08/15, 03/12/2022, Additional history exists O2 ASSESSMENT COMPLETED IN PAST YEAR FOR COPD 05/30/2024 05/30/2023 Lipid Panel 03/12/2027 03/12/2022, 09/0 01/2021, 08/21/2019, Additional history exists DTaP,Tdap,and Td Vaccines (4 - Td or Tdap) 08/31/2030 08/31/2020, 05/19/2010, 07/20/2003 Hepatitis C Screening Completed 11/15/2014 Pneumococcal Vaccine: 65+ Years Completed 08/27/2016, 08/16/2014, 05/08/2011, Additional history exists LUNG CANCER SCREENING - USE SMARTSET [id number] Completed 09/26/2021, 09/20/2020, 09/18/2017 (Declined) Influenza Vaccine (FLU shot) Completed 02/23/2023, 02/23/2022, 03/10/2021, Additional history exists DXA Scan Discontinued GARDASIL-HPV IMMUNIZATION SERIES Aged Out No longer eligible based on patient's age to complete this topic MENINGOCOCCAL (MENACTRA/MENVEO) Aged Out No longer eligible based on patient's age to complete this topic documented as of this encounter Medical Devices Not on filedocumented as of this encounter Care Teams [place] [employer] Relationship Specialty Start Date End Date Patti Posadas MD [address] [place] [address] PCP - General Internal Medicine 01/18/22 documented as of this encounter
--- OUTSIDE RECORDS SUMMARY | 2023-06-05 00:32 | External Medical Summary | Summary of Care ---
Author Name Unknown Organization [facility] Address [address] [place] [address] Phone [phone] Care Team Providers Care Hotel Engineer Name Role Phone Patti Posadas MD Primary Care Provider [phone] Reason for Visit * Reason Onset Date Comments Forms Request 05/28/2023 Waiver form Encounter Details Date Type Department Care Team (Late st Contact Info) Description 05/28/2023 Telephone [facility] [address] [place] [address] Patti Posadas MD [address] [place] [address] Forms Request (Waiver form ) Allergies Active Allergy Reactions Criticality Noted Date Comments Amoxicillin-Pot Clavulanate Other (Please comment) 01/14/2015 Severe Yeast infection Morphine And Related Unknown 02/19/2003 Codeine makes her vomit Sulfa Antibiotics Edema face/lips/tongue,Oth er (Please comment) High 02/19/2003 Headache documented as of this encounter (statuses as of 05/29/2023) Medications Medication Sig Dispensed Refills Start Date End Date Status PERPHENAZINE 2 MG PO TABS one to two tablets at bedtime 0 02/09/2014 Active LORAzepam (ATIVAN) 0.5 MG Tablet Take 1 Tablet by mouth at bedtime as needed for Anxiety or Insomnia. 30 Tab 0 08/22/2015 Active [place]-3 Fatty Acids (FISH OIL) 1200 MG CAPS Take 1 Cap by mouth daily. 0 Active doxepin (SINEQUAN) 25 MG Capsule Take 1 Cap by mouth at bedtime. 90 Cap 3 05/15/2017 Active traZODone (DESYREL) 50 MG Tablet Take 1 Tablet by mouth at bedtime. 30 Tab 5 03/25/2018 Active Ipratropium-Albutero l 20-100 MCG/ACT Inhalation Aerosol Solution (Combivent Respimat) (1) inhalation 4 times daily - please note change 18 g 3 06/19/2021 Active Additional Information Patient not taking.Reported on 03/04/2023 hydrOXYzine HCl 25 MG Oral Tablet Take 1 Tablet by mouth 2 times a day as needed. 0 01/04/2022 Active Nystatin 811359 UNIT/GM External Powder (Nystop)Indications: Candidal skin infection Apply topically to affected area 3 times a day . 30 g 3 03/06/2022 Active Depend Underwear X-Large Use 3-4 depends per day 130 Each 11 03/06/2022 Active Albuterol Sulfate (2.5 MG/3ML) 0.083% Inhalation Nebulization Solution (Proventil)Indicatio ns:COPD, mild (HCC),Centrilobular emphysema (HCC),Hypoxemia INHALE 1 VIAL VIA NEBULIZER EVERY 4 HOURS NEEDED FOR WHEEZING OR SHORTNESS OF BREATHE (CHEST PRESSURE) 300 mL 5 04/19/2022 Active CPAP every night at bedtime. 0 Active Fluticasone Propionate 50 MCG/ACT Nasal Suspension (Flonase)Indications :Chronic rhinitis INSTILL 2 SPRAYS INTO EACH NOSTRIL DAILY 48 g 3 06/29/2022 Active Fluticasone-Salmeter ol 250-50 MCG/ACT Inhalation Aerosol Powder Breath Activated (Advair Diskus) Inhale 1 Puff by mouth in the morning and 1 Puff before bedtime. 180 Each 3 07/03/2022 Active Nystatin 709821 UNIT/GM External CreamIndications:Can didal skin infection Apply topically to affected area 2 times a day. for two weeks. 60 g 1 07/03/2022 Active Garlic 1000 MG Oral Capsule Take 1 Capsule by mouth in the morning. 90 Capsule 1 08/09/2022 Active Olopatadine HCl 0.2 % Ophthalmic Solution Instill 1 Drop into eye in the morning. 15 mL 3 08/28/2022 Active Diclofenac Sodium 1 % External Gel (Voltaren) Apply 1 g topically to affected area in the morning and 1 g before bedtime. 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 To affected area. 60 g 1 12/24/2022 Active Levothyroxine Sodium 125 MCG Oral Tablet (Levoxyl)Indications :Acquired hypothyroidism TAKE ONE TABLET BY MOUTH EVERY DAY AT LEAST 30 MINUTES PRIOR TO BREAKFAST OR OTHER MEDICATIONS 90 Tablet 1 01/28/2023 Active Montelukast Sodium 10 MG Oral Tablet (Singulair)Indicatio ns:Allergic rhinitis due to other allergic trigger, unspecified seasonality TAKE ONE TABLET BY MOUTH EVERY MORNING 90 Tablet 1 01/28/2023 Active Cetirizine HCl 10 MG Oral Tablet (ZyrTEC) TAKE ONE TABLET BY MOUTH EVERY MORNING 90 Tablet 1 01/28/2023 Active Atorvastatin Calcium 10 MG Oral Tablet (Lipitor)Indications :Dyslipidemia TAKE ONE TABLET BY MOUTH EVERY MORNING 90 Tablet 1 01/28/2023 Active Lisinopril 5 MG Oral Tablet (Prinivil) Take 1 Tablet by mouth in the morning. 90 Tablet 3 03/04/2023 Active Baclofen 10 MG Oral Tablet (Lioresal) Take 1 Tablet by mouth in the morning and 1 Tablet before bedtime. 60 Tablet 3 03/04/2023 Active Vitamin E 180 MG (400 UNIT) Oral Capsule TAKE ONE CAPSULE BY MOUTH TWICE DAILY 56 Capsule 11 03/18/2023 Active Fish Oil 1000 MG Oral Capsule TAKE ONE CAPSULE BY MOUTH TWICE DAILY 56 Capsule 11 03/18/2023 Active Vitamin C 1000 MG Oral Tablet TAKE ONE TABLET BY MOUTH EVERY DAY 28 Tablet 11 03/18/2023 Active Vitamin B Complex Oral Capsule TAKE ONE CAPSULE BY MOUTH EVERY DAY 28 Capsule 11 03/18/2023 Active methylPREDNISolone 4 MG Oral Tablet Therapy Pack (Medrol Dosepack) follow package directions 21 Tablet 0 03/18/2023 Active Diclofenac Sodium 75 MG Oral Tablet Delayed Release (Voltaren) Take 1 Tablet by mouth in the morning and 1 Tablet before bedtime. With food.. 60 Tablet 3 03/18/2023 Active metFORMIN HCl 500 MG Oral Tablet (Glucophage) TAKE ONE TABLET BY MOUTH TWICE DAILY with morning and evening meals 180 Tablet 1 03/29/2023 Active Famotidine 20 MG Oral Tablet (Pepcid) TAKE ONE TABLET BY MOUTH EVERY MORNING and TAKE ONE TABLET AT BEDTIME 180 Tablet 1 03/29/2023 Active Turmeric Curcumin 500 MG Oral Capsule TAKE ONE CAPSULE BY MOUTH EVERY MORNING 90 Capsule 1 04/01/2023 Active Metoprolol Succinate ER 50 MG Oral Tablet Extended Release 24 Hour (toPROL XL)Indications:HTN, goal below 140/90 TAKE ONE TABLET BY MOUTH EVERY MORNING 90 Tablet 1 05/02/2023 Active Chlorthalidone 50 MG Oral Tablet (Hygroton) TAKE ONE TABLET BY MOUTH EVERY MORNING 90 Tablet 1 05/02/2023 Active Aspirin Low Dose 81 MG Oral Tablet Delayed Release (aspirin enteric coated) TAKE ONE TABLET BY MOUTH EVERY MORNING 90 Tablet 3 05/20/2023 Active documented as of this encounter (statuses as of 05/29/2023) Active Problems Problem Noted Date Diagnosed Date COPD, group B, by GOLD 2017 classification [...] disorder) 03/25/2018 Gastroesophageal reflux disease 03/25/2018 Old [place] (myocardial infarction) 03/25/2018 Mild persistent asthma without complication 02/15 Type 2 diabetes mellitus wit h hemoglobin A1c goal of less than 7.0% 02/25/2017 Acquired hypothyroidism 12/20/2016 Centrilobular emphysema 05/08/2016 Dyslipidemia, goal LDL below 100 07/04/2009 HTN, GOAL BELOW 140/90 04/22/2009 Overview: Modified per HTN Taxonomy. Insomnia 02/19/2003 Overview: ICD-10 update of inactive term documented as of this encounter (statuses as of 05/29/2023) Resolved Problems Problem Noted Date Diagnosed Date Resolved Date Diabetes mellitus with stage 3 chronic kidney disease 04/25/2020 10/27/2020 Overview: Per CKD protocol COPD, severity to be determined 02/17/2020 02/25/2020 Overview: Per COPD GOLD Classification Morbid obesity with BMI of 40.0-44.9, adult 04/29/2017 03/18/2023 Type 2 diabetes mellitus wit h stage [...] and 6 MWT Genetic Sleep Disorder Resea [facility] Other*[id number] 08/27/2011 01/18/2016 Routine general medical exam ination at a health care facility 08/09/2011 12/20/2016 Overview: 08/28 likely COPD per pulm consult, although PFTs looked essentially normal. Cardiac testing ordered hosp 07/25-08/03/11 likely w/COPD exacerbation responded to steroids, abx. Acute bronchitis, complicated 04/02/2011 08/09/2011 ADVANCE DIRECTIVE INFORMATION 11/20/2005 04/29/2017 Overview: Declined information LUMB-LUMBOSAC DISC DEGEN 04/02/200512/2015 History of tobacco use 05/22/200403/04 OSTE[facility]ARTHRO [facility] SITE 02/19/200304/2017 Anxiety state 02/19/2003 03/25/2018 Inflammation of sacroiliac joint 02/19/2003 08/22/2015 BENIGN HYPERTENSION 02/19/2003 04/22/20 09 Overview: Modified per HTN Taxonomy. documented as of this encounter (statuses as of 05/29/2023) Immunizations Name Administration Dates Next Due COVID-19 [...] encounter Miscellaneous Notes * Telephone Encounter - Jennifer Bower LPN [...] no further questions. * Telephone Encounter - Carpenter, Loly, ADRI - 05/28/2023 12:03 PM EST Noris calling from [employer] to see if the provider could complete the form for Physician certification form for waiver services for at home health clinical supervisor. They do need to have this form completed or they will not be able to process the application form. This will be for the recent back issues M48.062 M43.10 that she was diagnosed with that require to home health clinical supervisor. Noris will be faxing over the forms to be completed and asked to have these done as soon as possible. Please fax when completed to [phone] Pt does have an appt on 05/30 for this but if she doesn't need to come in please advise. documented in this encounter Plan of Treatment Upcoming Encounters Date Type Department Care Team (Late st Contact Info) Description 05/30/2023 2:00 PM EST Office Visit [facility] [address] [place] [phone] Patti Posadas MD [address] [place] [address] 09/02/2023 12:20 PM EDT Office Visit [facility] [address] [place] [phone] Patti Posadas MD [address] [place] [address] Scheduled Procedures Name Priority Associated Diagnoses Date/Ti [...] 01/24/2022, Additional history exists COVID-19 Vaccine ( - 2022- season) 2023 05/02/2021, 08/10/2020, 07/13/2020 CKD PHOS USE SMARTSET 89608 03/12/202302/16, 02/22/2021, 02/10/2020, Additional history exists Albumin/Creatinine Ratio 08/29/2023 023, 08/14/2021, 08/12/2020, Additional history exists GFR 09/02/2023 03/04/2023, 07/0 08/2022, 08/28/2022, Additional history exists HbA1c 09/02/2023 03/04/2023, 08/15, 03/12/2022, Additional history exists B-12 03/04/2024 03/04/2023, 08/15, 02/22/2021, Additional history exists CKD HGB USE SMARTSET 77078 03/04/202403/04, 12/17/2022, 12/17/2022, Additional history exists Diabetic Foot Exam 03/04/2024 03/04/2023, 0 02/07/2021, 02/10/2020, Additional history exists TSH 03/04/2024 03/04/2023, 0309/2022, 03/12/2022, Additional history exists O2 ASSESSMENT COMPLETED IN PAST YEAR FOR COPD 03/18/2024 03/18/2023 Lipid Panel 03/12/2027 03/12/2022, 09/0 01/2021, 08/21/2019, Additional history exists DTaP,Tdap,and Td Vaccines (4 - Td or Tdap) 08/31/2030 08/31/2020, 05/19/2010, 07/20/2003 Hepatitis C Screening Completed 11/15/2014 Pneumococcal Vaccine: 65+ Years Completed 08/27/2016, 08/16/2014, 05/08/2011, Additional history exists LUNG CANCER SCREENING - USE SMARTSET 51471 Completed 09/26/2021, 09/20/2020, 09/18/2017 (Declined) Influenza Vaccine [...] filedocumented as of this encounter Care Teams Hotel Engineer Relationship Specialty Start Date End Date Patti Posadas MD [address] [place] [address] PCP - General Internal Medicine 01/18/22 documented as of this encounter
--- OUTSIDE RECORDS SUMMARY | 2023-06-05 00:32 | External Medical Summary | Summary of Care ---
Author Name Unknown Organization [facility] Address [address] [place] [address] Phone [phone] Care Team Providers Care Pole Shaver Helper Name Role Phone Patti Posadas MD Primary Care Provider [phone] Reason for Visit * Reason Onset Date Comments Forms Request 05/28/2023 Waiver form Encounter Details Date Type Department Care Team (Late st Contact Info) Description 05/28/2023 Telephone [facility] [address] [place] [address] Patti Posadas MD [address] [place] [address] Forms Request (Waiver form ) [...] or Insomnia. 30 Tab 0 6 Active [place]-3 Fatty Acids (FISH OIL) 1200 MG CAPS [...] day as needed. 0 2 Active Nystatin 522390 UNIT/GM External Powder (Nystop)Indications :Candidal skin infection [...] bedtime. 180 Each 3 3 Active Nystatin 128341 UNIT/GM External CreamIndications:Ca ndidal skin infection Apply [...] Triamcinolone Acetonide 0.5 % External Cream (Aristocort)Indicat ions:Fingerprint Technician's papule Apply topically to affected area 2 [...] disorder) 03/25/2018 Gastroesophageal reflux disease 03/25/2018 Old [place] (myocardial infarction) 03/25/2018 Severe obesity with body [...] and 6 MWT Genetic Sleep Disorder Resea [facility] Other*[id number] 08/27/2011 01/18/2016 Routine general medical exam ination [...] to be faxed: waiver form Fax number: [phone] Attention to Name/Company: not given Any additional [...] 05/28/2023 12:03 PM EST Noris calling from [employer] to see if the provider could complete the form for Physician certification form for waiver services for at mobile home servicer. They do need to have this form completed or they will not be able to process the application form. This will be for the recent back issues M48.062 M43.10 that she was diagnosed with that require to mobile home servicer. Noris will be faxing over the forms to be completed and asked to have these done as soon as possible. Please fax when completed to [phone] Pt does have an appt on 05/30 for this but if she doesn't need to come in please advise. documented in this encounter Plan of Treatment Upcoming Encounters Date Type Department Care Team (Late st Contact Info) Description 09/02/2023 12:20 PM EDT Office Visit [facility] [address] [place] [facility] [place] [address] Patti Posadas MD [address] [place] [facility] [place] [address] Scheduled Procedures Name Priority Associated Diagnoses [...] 05/02/2021, 08/10/2020, 07/13/2020 CKD PHOS USE SMARTSET 27595 03/12/20232 11/2021, 02/22/2021, 02/10/2020, Additional history exists Albumin/Creatinine Ratio 08/29/2023 023, 08/14/2021, 08/12/2020, Additional history exists GFR 09/02/2023 03/04/2023, 07/0 08/2022, 08/28/2022, Additional history exists HbA1c 09/02/2023 03/04/2023, 08/15, 03/12/2022, Additional history exists B-12 03/04/2024 03/04/2023, 08/15, 02/22/2021, Additional history exists CKD HGB USE SMARTSET 70511 03/04/202403/04, 12/17/2022, 12/17/2022, Additional history exists Diabetic [...] exists LUNG CANCER SCREENING - USE SMARTSET 88040 Completed 09/26/2021, 09/20/2020, 09/18/2017 (Declined) Influenza Vaccine [...] filedocumented as of this encounter Care Teams Pole Shaver Helper Relationship Specialty Start Date End Date Patti Posadas MD [address] [place] [address] PCP - General Internal Medicine 01/18/22 documented as of this encounter
--- OUTSIDE RECORDS SUMMARY | 2023-06-05 00:32 | External Medical Summary | Summary of Care ---
Author Name Unknown Organization [facility] Address [address] [place] [address] Phone [phone] Care Team Providers Care Machine Gun Mechanic Name Role Phone Patti Posadas MD Primary Care Provider [phone] Reason for Visit * Reason Comments Forms Request Needs form filled ou t Encounter Details Date Type Department Care Team (Late st Contact Info) Description 05/30/2023 2:00 PM EST Office Visit [facility] [place] [facility] [address] [place] [address] Patti Posadas MD [address] [place] [address] DDD (degenerative disc disease), lumbar*; DDD (degenerative disc disease), thoracic; Severe obesity with body mass index (BMI) of 35.0 to 39.9 with serious comorbidity (HCC); Type 2 diabetes mellitus with hemoglobin A1c goal of less than 7.0% (HCC) Allergies Active Allergy Reactions Criticality Noted Date Comments Amoxicillin-Pot Clavulanate Other (Please comment) 01/14/2015 Severe Yeast infection Morphine And Related Unknown 02/19/2003 Codeine makes her vomit Sulfa Antibiotics Edema face/lips/tongue,Oth er (Please comment) High 02/19/2003 Headache documented as of this encounter (statuses as of 05/30/2023) Medications Medication Sig Dispensed Refills Start Date End Date Status PERPHENAZINE 2 MG PO TABS one to two tablets at bedtime 0 4 Active LORAzepam (ATIVAN) 0.5 MG Tablet Take 1 Tablet by mouth at bedtime as needed for Anxiety or Insomnia. 30 Tab 0 6 Active Boswell-3 Fatty Acids (FISH OIL) 1200 MG CAPS [...] day as needed. 0 2 Active Nystatin 412640 UNIT/GM External Powder (Nystop)Indications :Candidal skin infection [...] bedtime. 180 Each 3 3 Active Nystatin 348210 UNIT/GM External CreamIndications:Ca ndidal skin infection Apply [...] Triamcinolone Acetonide 0.5 % External Cream (Aristocort)Indicat ions:Brakes Inspector's papule Apply topically to affected area 2 [...] EVERY MORNING 90 Tablet 3 3 Active tiZANidine HCl 4 MG Oral Tablet (Zanaflex) Take 1 Tablet by mouth every 8 hours as needed for Muscle spasms. 60 Tablet 2 3 Active Baclofen 10 MG Oral Tablet (Lioresal) Take 1 Tablet by mouth in the morning and 1 Tablet before bedtime. 60 Tablet 3 3 05/30/20 23 Discontinued documented as of this encounter (statuses as of 05/30/2023) Active Problems Problem Noted Date Diagnosed Date [...] disorder) 03/25/2018 Gastroesophageal reflux disease 03/25/2018 Old MT (myocardial infarction) 03/25/2018 Severe obesity with body [...] as of this encounter (statuses as of 05/30/2023) Resolved Problems Problem Noted Date Diagnosed Date [...] and 6 MWT Genetic Sleep Disorder [facility] Other*[id number] 08/27/2011 01/18/2016 Routine general medical exam ination [...] as of this encounter (statuses as of 05/30/2023) Immunizations Name Administration Dates Next Due COVID-19 mRNA, LNP-s, No Pre serve, 2-Dose Series (Moderna) 05/02/2021,08/10/2020,07/13/2020 H1N1 2009 Influenza, IM 07/01/2009 Pneumococcal Conjugate Vacc, 13 Valent (Prevnar) 08/16/2014 Pneumococcal Polysaccharide PPV23 (Pneumovax) 08/27/2016,05/08/2011 Season Influenza, Cell Cultu re, 18+ Yrs, With Preserv (Flucelvax) 04/15/2013 Season Influenza, Quad, PF, Adjuvanted, 65+ Yrs, IM (FLUAD) 02/17/2020 Seasonal Influenza, PF, 6 M & above, IM , (FluLaval or Fluzone) 04/01/2019,03/25/2018,03/26/2017 03/25/2019 Seasonal Influenza, Quadriva lent Hd (Fluzone Hd) 02/23/2023,02/23/2022,03/10/2021 Seasonal Influenza, Quadriva lent, No Preserve, IM 02/28/2016 Seasonal Influenza, Split, I IV3, With Preserve, Inj 02/16/2015,02/16/2014,09/12/2012,12/2010,05/19/2010,07/01/2009,04/29/20 07 TDAP (age 10 and older)(Boostrix) 08/31/2020 TDAP [...] on file documented as of this encounter Last Filed Vital Signs Vital Sign Reading Time Taken Comments Blood Pressure 124/80 05/30/2023 2:10 PM EST Pulse 75 05/30/2023 2:10 PM EST Temperature 36.3 C (97.3 F) 05/30/2023 2:10 PM ES T Respiratory Rate 16 05/30/2023 2:10 PM EST Oxygen Saturation 97% 05/30/2023 2:10 PM EST Inhaled Oxygen Concentration - - Weight 86.3 kg (190 lb 4.8 oz) 05/30/2023 2:10 P M EST Height - - Body Mass Index 37.17 12/24/2022 10:23 AM EDT documented in this encounter Progress Notes * Patti Posadas MD - 05/30/2023 2:37 PM EST Subjective Elsy Palmer is a 72 year old female. 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 Chronic back pain which has been progressing Had f/u with spinal surgery Is going to get spinal injection Image test showed L4/5, L5/s1 and thoracic spine disc problem If injection does not help, planning to have L4/5 microdiscectomy Zanaflex med - refilled, helpful Type 2 DM, well controlled, last hba1c 5.7 Weight loss with exercise diet change PMH: Patient Active Problem List Diagnosis Code Insomnia G47.00 DDD (degenerative disc disease), lumbar M51.36 HTN, GOAL BELOW 140/90 I10 Dyslipidemia, goal LDL below 100 E78.5 Centrilobular emphysema (HCC) J43.2 Acquired hypothyroidism E03.9 Mild persistent asthma without complication J45.30 Type 2 diabetes mellitus with hemoglobin A1c goal of less than 7.0% ([facility]) E11.9 Severe obesity with body mass index (BMI) of 35.0 to 39.9 with serious comorbidity (HCC) E66.01 GERARDO (generalized anxiety disorder) F41.1 Gastroesophageal reflux disease K21.9 Old MT (myocardial infarction) I25.2 Periodic limb movement disorder (PLMD) G47.61 Need for prophylactic vaccination and inoculation against influenza Z23 Nocturnal hypoxemia G47.34 History of tobacco abuse Z87.891 Major depressive disorder, recurrent, unspecified (HCC) F33.9 Benign hypertension with stage 3a chronic kidney disease (HCC) I12.9, N18.31 Type 2 diabetes mellitus with stage 3a chronic kidney disease (HCC) E11.22, N18.31 Chronic kidney disease, stage 3a (HCC) N18.31 COPD, group B, by GOLD 2017 classification ([facility]) J44.9 DDD (degenerative disc disease), thoracic M51.34 Current Outpatient Medications Medication Sig Dispense Refill PERPHENAZINE 2 MG PO TABS one to two tablets at bedtime LORAzepam (ATIVAN) 0.5 MG Tablet Take 1 Tablet by mouth at bedtime as needed for Anxiety or Insomnia. 30 Tab 0 Boswell-3 Fatty Acids (FISH OIL) 1200 MG CAPS Take 1 Cap by mouth daily. traZODone (DESYREL) 50 MG Tablet Take 1 Tablet by mouth at bedtime. 30 Tab 5 Nystatin 441520 UNIT/GM External Powder (Nystop) Apply topically to affected area 3 times a day . 30 g 3 Depend Underwear X-Large Use 3-4 depends per day 130 Each 11 Albuterol Sulfate (2.5 MG/3ML) 0.083% Inhalation Nebulization Solution (Proventil) INHALE 1 VIAL VIA NEBULIZER EVERY 4 HOURS NEEDED FOR WHEEZING OR SHORTNESS OF BREATHE (CHEST PRESSURE) 300 mL 5 CPAP every night at bedtime. Fluticasone Propionate 50 MCG/ACT Nasal Suspension (Flonase) INSTILL 2 SPRAYS INTO EACH NOSTRIL DAILY 48 g 3 Fluticasone-Salmeterol 250-50 MCG/ACT Inhalation Aerosol Powder Breath Activated (Advair Diskus) Inhale 1 Puff by mouth in the morning and 1 Puff before bedtime. 180 Each 3 Nystatin 088056 UNIT/GM External Cream Apply topically to affected area 2 times a day. for two weeks. 60 g 1 Garlic 1000 MG Oral Capsule Take 1 Capsule by mouth in the morning. 90 Capsule 1 Olopatadine HCl 0.2 % Ophthalmic Solution Instill 1 Drop into eye in the morning. 15 mL 3 Diclofenac Sodium 1 % External Gel (Voltaren) Apply 1 g topically to affected area in the morning and 1 g before bedtime. 100 g 3 Citalopram Hydrobromide 10 MG Oral Tablet (CeleXA) Citalopram Hydrobromide 20 MG Oral Tablet (CeleXA) Triamcinolone Acetonide 0.5 % External Cream (Aristocort) Apply topically to affected area 2 times a day. To affected area. 60 g 1 Levothyroxine Sodium 125 MCG Oral Tablet (Levoxyl) TAKE ONE TABLET BY MOUTH EVERY DAY AT LEAST 30 MINUTES PRIOR TO BREAKFAST OR OTHER MEDICATIONS 90 Tablet 1 Montelukast Sodium 10 MG Oral Tablet (Singulair) TAKE ONE TABLET BY MOUTH EVERY MORNING 90 Tablet 1 Cetirizine HCl 10 MG Oral Tablet (ZyrTEC) TAKE ONE TABLET BY MOUTH EVERY MORNING 90 Tablet 1 Atorvastatin Calcium 10 MG Oral Tablet (Lipitor) TAKE ONE TABLET BY MOUTH EVERY MORNING 90 Tablet 1 Lisinopril 5 MG Oral Tablet (Prinivil) Take 1 Tablet by mouth in the morning. 90 Tablet 3 Vitamin E 180 MG (400 UNIT) Oral Capsule TAKE ONE CAPSULE BY MOUTH TWICE DAILY 56 Capsule 11 Fish Oil 1000 MG Oral Capsule TAKE ONE CAPSULE BY MOUTH TWICE DAILY 56 Capsule 11 Vitamin C 1000 MG Oral Tablet TAKE ONE TABLET BY MOUTH EVERY DAY 28 Tablet 11 Vitamin B Complex Oral Capsule TAKE ONE CAPSULE BY MOUTH EVERY DAY 28 Capsule 11 methylPREDNISolone 4 MG Oral Tablet Therapy Pack (Medrol Dosepack) follow package directions 21 Tablet 0 Diclofenac Sodium 75 MG Oral Tablet Delayed Release (Voltaren) Take 1 Tablet by mouth in the morning and 1 Tablet before bedtime. With food.. 60 Tablet 3 metFORMIN HCl 500 MG Oral Tablet (Glucophage) TAKE ONE TABLET BY MOUTH TWICE DAILY with morning andevening meals 180 Tablet 1 Famotidine 20 MG Oral Tablet (Pepcid) TAKE ONE TABLET BY MOUTH EVERY MORNING and TAKE ONE TABLET ATBEDTIME 180 Tablet 1 Turmeric Curcumin 500 MG Oral Capsule TAKE ONE CAPSULE BY MOUTH EVERY MORNING 90 Capsule 1 Metoprolol Succinate ER 50 MG Oral Tablet Extended Release 24 Hour (toPROL XL) TAKE ONE TABLET BY MOUTH EVERY MORNING 90 Tablet 1 Chlorthalidone 50 MG Oral Tablet (Hygroton) TAKE ONE TABLET BY MOUTH EVERY MORNING 90 Tablet 1 Aspirin Low Dose 81 MG Oral Tablet Delayed Release (aspirin enteric coated) TAKE ONE TABLET BY MOUTH EVERY MORNING 90 Tablet 3 tiZANidine HCl 4 MG Oral Tablet (Zanaflex) Take 1 Tablet by mouth every 8 hours as needed for Muscle spasms. 60 Tablet 2 doxepin (SINEQUAN) 25 MG Capsule Take 1 Cap by mouth at bedtime. 90 Cap 3 Ipratropium-Albuterol 20-100 MCG/ACT Inhalation Aerosol Solution (Combivent Respimat) (1) inhalation 4 times daily - please note change (Patient not taking: Reported on 03/04/2023) 18 g 3 hydrOXYzine HCl 25 MG Oral Tablet Take 1 Tablet by mouth 2 times a day as needed. Vilazodone HCl 20 MG Oral Tablet (Viibryd) (Patient not taking: Reported on 03/04/2023) No current facility-administered medications for this visit. Past Medical History: Diagnosis Date Anxiety state Benign neoplasm of colon 08/18/2009 polyps- shows adenomatous tissue& diverticulosis repeat 3 yrs COPD, mild (HCC) 01/29/2017 Diverticulosis of colon (without mention of hemorrhage) 10/13/2013 sigmoid colon Dyslipidemia, goal LDL below 100 07/04/2009 HTN, goal below 140/90 04/22/2009 Hypothyroid Insomnia, unspecified Kidney disease, chronic, stage III (GFR 30-59 ml/min) (HCC) 08/30/2014 Per CKD protocol #1 Old myocardial infarct 1996 ??? Pre-diabetes Sleep apnea, obstructive Tobacco use disorder 05/22/2004 Past Surgical History: Procedure Laterality Date BREAST BIOPSY Right 02/20/2022 COLONOSCOPY W/ LESION REMOVAL, SNARE 08/18/09 polyps- shows adenomatous tissue& diverticulosis repeat 3 yrs COLONOSCOPY, DIAGNOSTIC (RECTUM) 10/13/2013 hyperplastic polyps, diverticulosis, repeat 3 yrs/COLONOSCOPY FLEXIBLE PROXIMAL DIAGNOSTIC performed by Ines Bailey DO at [facility] COLONOSCOPY, DIAGNOSTIC (RECTUM) 01/28/2018 diverticulosis, repeat 5 yrs/COLONOSCOPY FLEXIBLE PROXIMAL DIAGNOSTIC performed by Ines Bailey DO at [facility] DOBUTAMINE STRESS ECHO 05/20 equivocal stress findings; negative stress echo findings LEFT HEART CATHETERIZATION 1996 [facility], dr roca REMOVAL OF APPENDIX 15 y/o REMOVE CATARACT, INSERT LENS PROSTH 1995 Rt/Lt REPAIR INITIAL INGUINAL HERNIA REDUCIBLE AGE 4 OR MORE Left 08/05/2017 08/05/2017 repair of left inguinal hernia - [facility] Dr. Fredo Rodriguez TOTAL HIP REPLACEMENT & PROSTHESIS 2003 right TOTAL HYSTERECTOMY september 2001 abdominal, with BSO, done by Franco Review of patient's allergies indicates: Allergen Reactions Sulfa Antibiotics Edema face/lips/tongue and Other (Please comment) Headache Augmentin [Amoxicillin-Pot Clavulanate] Other (Please comment) Severe Yeast infection Morphine And Related Unknown Codeine makes her vomit Family History Problem Relation Age of Onset Lung Disorder Father emphysema Other (ADRI [Other]) Sister Arthritis Sister Lung Disorder Sister emphysema, smoker Mental Disorder Sister Mental Disorder Sister Mental Disorder Sister Mental Disorder Brother Mental Disorder Daughter Mental Disorder Son Neurological Disorder Son meningitis encephalitis Family Status Relation Status Mo Fa Sis (Not Specified) Sis (Not Specified) Sis (Not Specified) Sis (Not Specified) Sis (Not Specified) Sis (Not Specified) Bro (Not Specified) Han (Not Specified) Son (Not Specified) Son (Not Specified) Social History Socioeconomic History Marital status: Spouse name: Not on file Number of children: 3 Years of education: 10th Highest education level: Not on file Occupational History 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: 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 [employer] 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 Occupation: disability Comment: DJD, mood disorder Tobacco Use Smoking status: Former Packs/day: 2.00 Years: 30.00 Additional pack years: 0.00 Total pack years: 60.00 Types: Cigarettes Quit date: 07/29/2011 Years since quittin.8 Passive exposure: Never Smokeless tobacco: Never Vaping Use Vaping Use: Never used Substance and Sexual Activity Alcohol use: No Drug use: No Sexual activity: Not Currently Other Topics Concern Not on file Social History Narrative Not on file Social Determinants of Health Financial Resource Strain: Not on file Food Insecurity: No Food Insecurity (04/01/2019) Hunger Vital Sign Worried About Running Out of Food in the Last Year: Never true Ran Out of Food in the Last Year: Never true Transportation Needs: Not on file Physical Activity: Not on file Stress: Not on file Social Connections: Not on file Intimate Partner Violence: Not on file Housing Stability: Not on file Review of Systems Constitutional: Positive for activity change (leg pain back pain) and fatigue. Negative for appetite change, chills, diaphoresis, fever and unexpected weight change. Respiratory: Negative for shortness of breath. Cardiovascular: Negative for leg swelling. Gastrointestinal: Negative for abdominal distention and abdominal pain. Musculoskeletal: Positive for arthralgias, back pain and gait problem. Neurological: Positive for weakness and numbness. Negative for dizziness and light-headedness. Psychiatric/Behavioral: Positive for sleep disturbance. Negative for agitation and behavioral problems. The patient is nervous/anxious. Objective BP 124/80 | Pulse 75 | Temp 36.3 C (97.3 F) (Infrared ) | Resp 16 | Wt 86.3 kg (190 lb 4.8 oz) | SpO2 97% | BMI 37.17 kg/m | BSA 1.91 m Physical Exam Constitutional: General: She is not in acute distress. Appearance: Normal appearance. She is obese. She is not ill-appearing, toxic- appearing or diaphoretic. HENT: Head: Normocephalic and atraumatic. Nose: Nose normal. Eyes: Extraocular Movements: Extraocular movements intact. Cardiovascular: Rate and Rhythm: Normal rate and regular rhythm. Pulmonary: Effort: Pulmonary effort is normal. No respiratory distress. Musculoskeletal: General: Tenderness present. Right lower leg: No edema. Left lower leg: No edema. Neurological: General: No focal deficit present. Mental Status: She is alert and oriented to person, place, and time. Psychiatric: Behavior: Behavior normal. Comments: Anxiety ASSESSMENT/PLAN: DDD (degenerative disc disease), lumbar (Primary) DDD (degenerative disc disease), thoracic Severe obesity with body mass index (BMI) of 35.0 to 39.9 with serious comorbidity (HCC) Type 2 diabetes mellitus with hemoglobin A1c goal of less than 7.0% (HCC) Other orders - tiZANidine HCl 4 MG Oral Tablet (Zanaflex); Take 1 Tablet by mouth every 8 hours as needed for Muscle spasms. Cont all current meds Form - signed F/u with pain medicine for injection And f/u with spinal surgeyr Patti Posadas MD documented in this encounter Nursing Notes * Jennifer Bower LPN - 05/30/2023 2:07 PM EST Chief Complaint Patient presents with Forms Request Needs form filled out documented in this encounter Plan of Treatment Upcoming Encounters Date Type Department Care Team (Late st Contact Info) Description 09/02/2023 12:20 PM EDT Office Visit [facility] [place] [facility] [address] [place] [address] Patti Posadas MD [address] [place] [address] Scheduled Procedures Name Priority Associated Diagnoses Date/Ti [...] 05/02/2021, 08/10/2020, 07/13/2020 CKD PHOS USE SMARTSET 89161 03/12/20232 11/2021, 02/22/2021, 02/10/2020, Additional history exists Albumin/Creatinine Ratio 08/29/2023 023, 08/14/2021, 08/12/2020, Additional history exists GFR 09/02/2023 03/04/2023, 07/0 08/2022, 08/28/2022, Additional history exists HbA1c 09/02/2023 03/04/2023, 08/15, 03/12/2022, Additional history exists B-12 03/04/2024 03/04/2023, 08/15, 02/22/2021, Additional history exists CKD HGB USE SMARTSET 39259 03/04/202403/04, 12/17/2022, 12/17/2022, Additional history exists Diabetic Foot Exam 03/04/2024 03/04/2023, 0 02/07/2021, 02/10/2020, Additional history exists TSH 03/04/2024 03/04/2023, 0309/2022, 03/12/2022, Additional history exists O2 ASSESSMENT COMPLETED IN PAST YEAR FOR COPD 03/18/2024 05/30/2023 Lipid Panel 03/12/2027 03/12/2022, 09/0 01/2021, 08/21/2019, Additional history exists DTaP,Tdap,and Td Vaccines (4 - Td or Tdap) 08/31/2030 08/31/2020, 05/19/2010, 07/20/2003 Hepatitis C Screening Completed 11/15/2014 Pneumococcal Vaccine: 65+ Years Completed 08/27/2016, 08/16/2014, 05/08/2011, Additional history exists LUNG CANCER SCREENING - USE SMARTSET [id number] Completed 09/26/2021, 09/20/2020, 09/18/2017 (Declined) Influenza Vaccine [...] Not on filedocumented as of this encounter Visit Diagnoses Diagnosis DDD (degenerative disc disease), lumbar- Primary Degeneration of lumbar or lumbosacral intervertebral disc DDD (degenerative disc disease), thoracic Degeneration of thoracic or thoracolumbar intervertebral disc Severe obesity with body mass index (BMI) of 35.0 to 39.9 with serious comorbidity (HCC) Type 2 diabetes mellitus with hemoglobin A1c goal of less than 7.0% (HCC) documented in this encounter Care Teams Machine Gun Mechanic Relationship Specialty Start Date End Date Patti Posadas MD [address] [place] [address] PCP - General Internal Medicine 01/18/22 documented as of this encounter"
--- OUTSIDE RECORDS SUMMARY | 2023-06-05 00:32 | External Medical Summary | Summary of Care ---
Author Name Unknown Organization [facility] Address [address] [place] [address] Phone [phone] Care Team Providers Care Polishing Machine Operator Helper Name Role Phone Patti Posadas MD Primary Care Provider [phone] Reason for Visit * Reason Comments eRx-Medication Refill Encounter Details Date Type Department Care Team (Late st Contact Info) Description 05/20/2023 Refill [facility] [address] [place] [address] Patti Posadas MD [address] [place] [address] Allergies Active Allergy Reactions Criticality Noted Date Comments Amoxicillin-Pot Clavulanate Other (Please comment) 01/14/2015 Severe Yeast infection Morphine And Related Unknown 02/19/2003 Codeine makes her vomit Sulfa Antibiotics Edema face/lips/tongue,Oth er (Please comment) High 02/19/2003 Headache documented as of this encounter (statuses as of 05/20/2023) Medications Medication Sig Dispensed Refills Start Date End Date Status PERPHENAZINE 2 MG PO TABS one to two tablets at bedtime 0 4 Active LORAzepam (ATIVAN) 0.5 MG Tablet Take 1 Tablet by mouth at bedtime as needed for Anxiety or Insomnia. 30 Tab 0 6 Active [place]-3 Fatty Acids (FISH OIL) 1200 MG CAPS [...] day as needed. 0 2 Active Nystatin 466618 UNIT/GM External Powder (Nystop)Indications :Candidal skin infection [...] bedtime. 180 Each 3 3 Active Nystatin 780980 UNIT/GM External CreamIndications:Ca ndidal skin infection Apply [...] Triamcinolone Acetonide 0.5 % External Cream (Aristocort)Indicat ions:Bakery Associate's papule Apply topically to affected area 2 [...] the morning. 90 Tablet 3 3 Active Baclofen 10 MG Oral Tablet (Lioresal) Take 1 Tablet by mouth in the morning and 1 Tablet before bedtime. 60 Tablet 3 3 Active Vitamin E 180 [...] EVERY MORNING 90 Tablet 3 3 Active Aspirin Low Dose 81 MG Oral Tablet Delayed Release (aspirin enteric coated) TAKE ONE TABLET BY MOUTH EVERY MORNING 90 Tablet 1 3 05/20/20 23 Discontinued documented as of this encounter (statuses as of 05/20/2023) Active Problems Problem Noted Date Diagnosed Date [...] disorder) 03/25/2018 Gastroesophageal reflux disease 03/25/2018 Old [place] (myocardial infarction) 03/25/2018 Mild persistent asthma without complication 02/15 Type 2 diabetes mellitus wit h hemoglobin A1c goal of less than 7.0% 02/25/2017 Acquired hypothyroidism 12/20/2016 Centrilobular emphysema 05/08/2016 Dyslipidemia, goal LDL below 100 07/04/2009 HTN, GOAL BELOW 140/90 04/22/2009 Overview: Modified per HTN Taxonomy. Insomnia 02/19/2003 Overview: ICD-10 update of inactive term documented as of this encounter (statuses as of 05/20/2023) Resolved Problems Problem Noted Date Diagnosed Date [...] and 6 MWT Genetic Sleep Disorder [facility] Other*[id number] 08/27/2011 01/18/2016 Routine general medical exam ination at a health care facility 08/09/2011 12/20/2016 Overview: 08/28 likely COPD per pulm consult, although PFTs looked essentially normal. Cardiac testing ordered hosp 07/25-08/03/11 likely w/COPD exacerbation responded to steroids, abx. Acute bronchitis, complicated 04/02/2011 08/09/2011 ADVANCE DIRECTIVE INFORMATION 11/20/2005 04/29/2017 Overview: Declined information LUMB-LUMBOSAC DISC DEGEN 04/02/200512/2015 History of tobacco use 05/22/200403/04 OSTEOARTHRO NOS-OTH SITE 02/19/200304/2017 Anxiety state 02/19/2003 03/25/2018 Inflammation of sacroiliac joint 02/19/2003 08/22/2015 BENIGN HYPERTENSION 02/19/2003 04/22/20 09 Overview: Modified per HTN Taxonomy. documented as of this encounter (statuses as of 05/20/2023) Immunizations Name Administration Dates Next Due COVID-19 mRNA, LNP-s, No Pre serve, 2-Dose Series (Moderna) 05/02/2021,08/10/2020,07/13/2020 H1N1 2009 Influenza, IM 07/01/2009 Pneumococcal Conjugate Vacc, 13 Valent (Prevnar) 08/16/2014 Pneumococcal Polysaccharide PPV23 (Pneumovax) 08/27/2016,05/08/2011 SEASONAL INFLUENZA, PF, 6 M & Above, IM , (FLULAVAL or FLUZONE) 04/01/2019,03/25/2018,03/26/2017 03/25/2019 Season Influenza, Cell Culte r, 18+ Yrs, With Preserv (Flucelvax) 04/15/2013 Season Influenza, Quad, PF, Adjuvanted, 65+ Yrs, IM (FLUAD) 02/17/2020 Seasonal Influenza, Quadriva lent Hd (Fluzone Hd) 02/23/2023,02/23/2022,03/10/2021 Seasonal Influenza, Quadriva lent, No Preserve, IM 02/28/2016 Seasonal Influenza, Split, I IV3, With Preserve, Inj 02/16/2015,02/16/2014,09/12/2012,11/0 12/2010,05/19/2010,07/01/2009,04/29/20 07 TDAP (age 10 and older)(Boostrix) 08/31/2020 [...] encounter Miscellaneous Notes * Telephone Encounter - Amanda Herrera [facility] - 05/20/2023 4:51 PM ESTSigned Prescriptions: Disp Refills Aspirin Low Dose 81 MG Oral Tablet Delayed*90 Tab*3 Sig: TAKE ONE TABLET BY MOUTH EVERY MORNINGAuthorizing Provider: Aleta POSADAS User: AMANDA HERRERA---- documented in this encounter Plan of Treatment Upcoming Encounters Date Type Department Care Team (Late st Contact Info) Description 09/02/2023 12:20 PM EDT Office Visit [facility] [address] [place] [address] Patti Posadas MD [address] [facility] [place] [id number] Scheduled Procedures Name Priority Associated Diagnoses Date/Ti [...] 05/02/2021, 08/10/2020, 07/13/2020 CKD PHOS USE SMARTSET 86555 03/12/202302/16, 02/22/2021, 02/10/2020, Additional history exists Albumin/Creatinine Ratio 08/29/2023 023, 08/14/2021, 08/12/2020, Additional history exists GFR 09/02/2023 03/04/2023, 07/0 08/2022, 08/28/2022, Additional history exists HbA1c 09/02/2023 03/04/2023, 08/15, 03/12/2022, Additional history exists B-12 03/04/2024 03/04/2023, 08/15, 02/22/2021, Additional history exists CKD HGB USE SMARTSET 24163 03/04/202403/04, 12/17/2022, 12/17/2022, Additional history exists Diabetic [...] exists LUNG CANCER SCREENING - USE SMARTSET 50752 Completed 09/26/2021, 09/20/2020, 09/18/2017 (Declined) Influenza Vaccine [...] filedocumented as of this encounter Care Teams Polishing Machine Operator Helper Relationship Specialty Start Date End Date Patti Posadas MD [address] [place] [address] PCP - General Internal Medicine 01/18/22 documented as of this encounter
--- OUTSIDE RECORDS SUMMARY | 2023-06-05 00:32 | External Medical Summary | Summary of Care ---
Author Name Unknown Organization [facility] Address [address] [place] [address] Phone [phone] Care Team Providers Care Carbon Cutter Name Role Phone Patti Posadas MD Primary Care Provider [phone] Reason for Visit * Reason Onset Date Comments Forms Request 05/28/2023 Waiver form Encounter Details Date Type Department Care Team (Late st Contact Info) Description 05/28/2023 Telephone [facility] [address] [place] [address] Patti Posadas MD [address] [place] [address] Forms Request (Waiver form ) [...] or Insomnia. 30 Tab 0 08/22/2015 Active [place]-3 Fatty Acids (FISH OIL) 1200 MG CAPS [...] day as needed. 0 01/04/2022 Active Nystatin 024107 UNIT/GM External Powder (Nystop)Indications: Candidal skin infection [...] bedtime. 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 Cardiac testing ordered hosp 07/25-08/03/11 likely w/COPD exacerbation responded to steroids, abx. 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 They do need to have this form completed or they will not be able to process the application form. 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 Noris will be faxing over the forms to be completed and asked to have these done as soon as possible. Please fax when completed to [phone] Pt does have an appt on 05/30 for this but if she doesn't need to come in please advise. documented in this encounter Plan of Treatment Upcoming Encounters Date Type Department Care Team (Late st Contact Info) Description 05/30/2023 2:00 PM EST Office Visit [facility] [address] [place] [address] Patti Posadas MD [address] [place] [address] 09/02/2023 12:20 PM EDT Office Visit [facility] [address] [place] [address] Patti Posadas MD [address] [place] [address] Scheduled Procedures Name Priority Associated Diagnoses [...] 01/16, 01/24/2022, Additional history exists COVID-19 Vaccine (4 - 2023- season) 2023 05/02/2021, 08/10/2020, 07/13/2020 CKD PHOS USE SMARTSET 45365 03/12/2023 09/2 11/2021, 02/22/2021, 02/10/2020, Additional history exists Albumin/Creatinine Ratio 08/29/2023 023, 08/14/2021, 08/12/2020, Additional history exists GFR 09/02/2023 03/04/2023, 07/0 08/2022, 08/28/2022, Additional history exists HbA1c 09/02/2023 03/04/2023, 08/15, 03/12/2022, Additional history exists B-12 03/04/2024 03/04/2023, 08/15, 02/22/2021, Additional history exists CKD HGB USE SMARTSET 41788 03/04/202403/04, 12/17/2022, 12/17/2022, Additional history exists Diabetic [...] exists LUNG CANCER SCREENING - USE SMARTSET 83860 Completed 09/26/2021, 09/20/2020, 09/18/2017 (Declined) Influenza Vaccine [...] filedocumented as of this encounter Care Teams Carbon Cutter Relationship Specialty Start Date End Date Patti Posadas MD [address] [place] [address] PCP - General Internal Medicine 01/18/22 documented as of this encounter
[2023-06-05] MEDS: HEPARIN SOD 5,000 UNIT/0.5 ML VIAL SQ SCH ×3 (06:21→20:37)
[2023-06-05] MEDS: LEVOTHYROXINE SODIUM 125 MCG TABLET PO SCH (06:21)
[2023-06-05 06:38] LABS: Hematocrit (blood only) 35.2 % (37.0-47.0); Hemoglobin 12.2 g/dl (12.0-16.0); Mean Corpuscular Hgb Conc 34.7 g/dL (32.0-36.0); Mean Corpuscular Volume 89.3 fL (80.0-100.0); Platelet Count 190 K/uL (130-400); RDW Coefficient of Variation 12.6 % (11.5-14.5); RDW Standard Deviation 41.2 fL (36.4-46.3); Red Blood Count 3.94 M/uL (4.20-5.40); White Blood Count 5.61 K/ul (4.8-10.8)
[2023-06-05 07:00] LABS: BUN Creatinine Ratio 21.8 (10-20); Calcium 8.7 mg/dl (8.6-10.3); Creatinine Clr Calc Pharmacy 41.5 ml/min; Est GFR (African American) 52.4 ml/min; Est GFR (Non-African American) 45.3 ml/min; Magnesium 1.7 mg/dl (1.7-2.4); Potassium 3.6 mmol/L (3.5-5.1)
[2023-06-05 07:34] LABS: Estimated Average Glucose 123 mg/dl; Hemoglobin A1C 5.9 % (4.5-5.6)
[2023-06-05] MEDS: CITALOPRAM 20 MG TAB PO SCH ×2 (07:36→07:37)
[2023-06-05] MEDS: ASPIRIN 81 MG ECTAB PO SCH (07:37)
[2023-06-05] MEDS: CETIRIZINE HCL 10 MG TABLET PO SCH (07:37)
[2023-06-05] MEDS: METOPROLOL SUCC 50MG EXT REL TAB PO SCH (07:37)
[2023-06-05] MEDS: TOCOPHERYL, DL-ALPHA 400 UNITS 180 MG CAP PO SCH ×2 (07:37→20:36)
[2023-06-05] MEDS: ASCORBIC ACID 500 MG TAB PO SCH (07:37)
[2023-06-05] MEDS: MONTELUKAST SODIUM 10 MG TABLET PO SCH (07:38)
[2023-06-05] MEDS: OMEGA-3 (PURIFIED FISH OIL) 1 GM CAP PO SCH ×2 (07:38→20:35)
[2023-06-05] MEDS: FAMOTIDINE 20 MG TAB PO SCH ×2 (07:38→20:35)
[2023-06-05] MEDS: VITAMIN B COMPLEX TAB PO SCH (07:38)
[2023-06-05] MEDS: tiZANidine HCL 4 MG TABLET PO PRN ×2 (09:21→22:25)
--- NOTE | 2023-06-05 12:10 | Hospitalist Progress Note ---
Date of Service June 05, 2023 Assessment & Plan (1) Hypotensive episode: Plan: Presented with low BP associated with slurred speech Systolic BP on presentation was in the 60's Possible related to hypovolemia + medication effect Received Epinephrine that was administered by EMS and IVF Received IV cefepime in ER Procalcitonin, Lactate, WBC are wnl No sign of infection so far. No further antibiotics Vitals performed during my eval does not show orthostatic hypotension BP sitting 123/58, [place] 71 BP standing 128/68, [place] 84 Reviewed BP trend overnight. However, BP has been rebounding quite high Resume home chlorthalidone at lower dose of 25mg daily and lisinopril at 2.5mg daily Monitor BP Slurred Speech Likely due to hypotension Resolved CT head showed no acute intracranial abnormality No focal neuro deficit on exam If develops any neurological symptoms, will consider MRI of brain Acute kidney injury on CKD 3 Likely related to hypotension Creatinine 1.8 on admission My review of [facility] records showed baseline Cr has been 1.2-1.3 and eGFR has been 45-55 Cr is down to 1.19 today Monitor Avoid nephrotoxic agents Continue monitor BMP while inpatient Hypomagnesium Mg 1.3 on admission Mg repleted Mg is 1.7 today Started on po mag Continue monitor electrolytes Diabetes mellitus, type II: Hold home Metformin Hba1c 5.9 BSG AC HS COPD (chronic obstructive pulmonary disease): Continue home inhalers Nocturnal hypoxemia: On 2L O2 HS History of heart attack: H/o [place] in 1996. Medically managed with aspirin, statin and beta hector. Continue home metoprolol succinate Hypertension: Med changes as above Hypothyroidism: Continue levothyroxine Anxiety and depression: Continue Perphenazine and Doxepin and celexa DVT px on heparin subq Code status Full code I spent a total of 60 minutes coordinating, documenting and providing care for this patient excluding time spent in performance of separately billed services Admission and Anticipated Discharge Date Admission Date: June 04, 2023 Subjective Patient seen and examined Patient sitting in chair Reports no slurred speech since admission Denied blurry vision. Reports occasional postural dizziness when she gets up Reported one episode of loose stool on mon and tues Denied hematochezia, nausea, vomiting, melena Denied cough, chest pain, SOB Denied fever, chills Denied dysuria, freq, urgency Physical Exam Constitutional: + well hydrated and + obese; no acute di stress Eyes: PERRL, conjunctivae normal, anicteric sclerae ENMT: external ear and nose normal, oropharynx normal Respiratory: normal respiratory effort, lungs clear to auscultation Cardiovascular: Rate/Rhythm: regular rate and regular rhythm S1 S2 Gastrointestinal (Abdomen): normal bowel sounds, soft, nontender, no hepatosplenomegaly Musculoskeletal: No pedal edema Neurologic: PERRL, EOMI, accommodation nl, no face palsy, no dysarthria Psychiatric: A+Ox3, euthymic affect Results & Data Results & Data Vital Signs (Past 12 Hours) Vital Signs Temp Pulse Pulse Resp BP BP Pulse Ox 06/05/23 11:48 36.4 C L 06/05/23 11:44 128/68 06/05/23 09:28 06/05/23 09:27 84 06/05/23 08:23 37.1 C 89 16 171/114 H 97 06/05/23 04:22 36.6 C 84 16 163/104 H 95 06/05/23 00:00 78 O2 Del Method 06/05/23 11:48 06/05/23 11:44 06/05/23 09:28 Room Air 06/05/23 09:27 06/05/23 08:23 Room Air 06/05/23 04:22 Room Air 06/05/23 00:00 Laboratory Results Abnormal lab results 06/04/23 06/04/23 06/04/23 Range/Units 14:52 15:57 20:29 RBC 3.58 L (4.20-5.40) M/uL Hgb 11.2 L (12.0-16.0) g/dl Hct 32.3 L (37.0-47.0) % [place] # (Auto) 0.80 H (0.11-0.59) K/uL Eos # (Auto) 0.58 H (0.00-0.50) K/uL BUN 36 H (6-23) mg/dl Creatinine 1.81 H (0.6-1.2) mg/dl BUN/Creatinine Ratio (10-20) Glucose 103 H (70-99(Fasting)) mg/dl POC Glucose 105 H (70-99) mg/dl Hemoglobin A1c (4.5-5.6) % Calcium 7.9 L (8.6-10.3) mg/dl Magnesium 1.3 L (1.7-2.4) mg/dl Total Protein 5.1 L (6.0-8.3) gm/dl Albumin 3.2 L (3.4-5.0) gm/dl Globulin 1.9 L (2.5-4.0) gm/dl Urine Blood Trace H (Negative) U Epithel Cells (Auto) 20-30 H (0-5) /lpf 06/05/23 06/05/23 06/05/23 Range/Units 06:01 07:34 11:44 RBC 3.94 L (4.20-5.40) M/uL Hgb (12.0-16.0) g/dl Hct 35.2 L (37.0-47.0) % [place] # (Auto) (0.11-0.59) K/uL Eos # (Auto) (0.00-0.50) K/uL BUN 26 H (6-23) mg/dl Creatinine (0.6-1.2) mg/dl BUN/Creatinine Ratio 21.8 H (10-20) Glucose 115 H (70-99(Fasting)) mg/dl POC Glucose 123 H 139 H (70-99) mg/dl Hemoglobin A1c 5.9 H (4.5-5.6) % Calcium (8.6-10.3) mg/dl Magnesium (1.7-2.4) mg/dl Total Protein (6.0-8.3) gm/dl Albumin (3.4-5.0) gm/dl Globulin (2.5-4.0) gm/dl Urine Blood (Negative) U Epithel Cells (Auto) (0-5) /lpf
[2023-06-05] MEDS: MAGNESIUM OXIDE 400 MG TAB PO SCH (13:04)
[2023-06-05] MEDS: CHLORTHALIDONE 25 MG TAB PO SCH (13:04)
[2023-06-05] MEDS: lisinopril 2.5 MG TAB PO SCH (16:10)
[2023-06-05] MEDS: LORazepam 0.5 MG TAB PO PRN (20:35)
[2023-06-05] MEDS: DOXEPIN HCL 25 MG CAPSULE PO SCH (20:35)
[2023-06-05] MEDS: PERPHENAZINE 2 MG TAB PO SCH (20:35)
[2023-06-05] MEDS: ATORVASTATIN 10 MG TAB PO SCH (20:35)
[2023-06-05] MEDS: traZODone HCL 50 MG TAB PO SCH (20:35)
[2023-06-05] MEDS ORDERED: ACETAMINOPHEN 325 MG TAB PO PRN (20:59)
[2023-06-05] MEDS ORDERED: LABETALOL HCL IV 5 MG/ML 20ML IV STA (20:59)
[2023-06-06] MEDS: HEPARIN SOD 5,000 UNIT/0.5 ML VIAL SQ SCH ×3 (05:43→21:18)
[2023-06-06] MEDS: LEVOTHYROXINE SODIUM 125 MCG TABLET PO SCH (05:43)
[2023-06-06 06:16] LABS: Hematocrit (blood only) 36.1 % (37.0-47.0); Hemoglobin 12.4 g/dl (12.0-16.0); Mean Corpuscular Hemoglobin 30.7 pg (25.0-34.0); Mean Corpuscular Hgb Conc 34.3 g/dL (32.0-36.0); Mean Corpuscular Volume 89.4 fL (80.0-100.0); Mean Platelet Volume 11.8 fL (9.4-12.4); Platelet Count 222 K/uL (130-400); RDW Coefficient of Variation 12.5 % (11.5-14.5); RDW Standard Deviation 41.2 fL (36.4-46.3); Red Blood Count 4.04 M/uL (4.20-5.40); White Blood Count 6.85 K/ul (4.8-10.8)
[2023-06-06 06:45] LABS: BUN Creatinine Ratio 15.4 (10-20); Calcium 9.1 mg/dl (8.6-10.3); Creatinine Clr Calc Pharmacy 35.8 ml/min; Est GFR (African American) 44.6 ml/min; Est GFR (Non-African American) 38.5 ml/min; Magnesium 1.7 mg/dl (1.7-2.4); Phosphorus 3.7 mg/dl (2.5-4.9); Potassium 3.9 mmol/L (3.5-5.1)
[2023-06-06] MEDS: MONTELUKAST SODIUM 10 MG TABLET PO SCH (08:47)
[2023-06-06] MEDS: MAGNESIUM OXIDE 400 MG TAB PO SCH (08:47)
[2023-06-06] MEDS: VITAMIN B COMPLEX TAB PO SCH (08:47)
[2023-06-06] MEDS: METOPROLOL SUCC 50MG EXT REL TAB PO SCH (08:47)
[2023-06-06] MEDS: lisinopril 2.5 MG TAB PO SCH (08:47)
[2023-06-06] MEDS: TOCOPHERYL, DL-ALPHA 400 UNITS 180 MG CAP PO SCH ×2 (08:47→19:39)
[2023-06-06] MEDS: OMEGA-3 (PURIFIED FISH OIL) 1 GM CAP PO SCH ×2 (08:47→19:38)
[2023-06-06] MEDS: CETIRIZINE HCL 10 MG TABLET PO SCH (08:48)
[2023-06-06] MEDS: ASPIRIN 81 MG ECTAB PO SCH (08:48)
[2023-06-06] MEDS: CITALOPRAM 20 MG TAB PO SCH ×2 (08:48)
[2023-06-06] MEDS: ASCORBIC ACID 500 MG TAB PO SCH (08:48)
[2023-06-06] MEDS: CHLORTHALIDONE 25 MG TAB PO SCH (08:48)
[2023-06-06] MEDS: tiZANidine HCL 4 MG TABLET PO PRN ×2 (08:48→19:36)
[2023-06-06] MEDS: FAMOTIDINE 20 MG TAB PO SCH ×2 (08:49→19:39)
--- NOTE | 2023-06-06 11:47 | Hospitalist Progress Note ---
Date of Service June 06, 2023 Assessment & Plan (1) Hypotensive episode: Plan: Presented with low BP associated with slurred speech Systolic BP on presentation was in the 60's Possible related to hypovolemia + medication effect Received Epinephrine that was administered by EMS and IVF Received IV cefepime in ER Procalcitonin, Lactate, WBC are wnl No sign of infection so far. No further antibiotics Lisinopril and chlorthalidone stopped Continue to monitor BP Slurred Speech Likely due to hypotension Resolved CT head showed no acute intracranial abnormality No focal neuro deficit on exam If develops any neurological symptoms, will consider MRI of brain Acute kidney injury on CKD 3 Likely related to hypotension Creatinine 1.8 on admission My review of [facility] records showed baseline Cr has been 1.2-1.3 and eGFR has been 45-55 Cr is 1.36 today Monitor Avoid nephrotoxic agents Continue monitor BMP while inpatient Hypomagnesium Mg 1.3 on admission Mg repleted Mg is 1.7 today Continue po mag Continue monitor electrolytes Diabetes mellitus, type II: Hold home Metformin Hba1c 5.9 BSG AC HS COPD (chronic obstructive pulmonary disease): Continue home inhalers Nocturnal hypoxemia: On 2L O2 HS History of heart attack: H/o [place] in 1996. Medically managed with aspirin, statin and beta hector. Continue home metoprolol succinate Hypertension: Med changes as above Hypothyroidism: Continue levothyroxine Anxiety and depression: Continue Perphenazine and Doxepin and celexa DVT px on heparin subq Code status Full code I spent a total of 40 minutes coordinating, documenting and providing care for this patient excluding time spent in performance of separately billed services Admission and Anticipated Discharge Date Admission Date: June 04, 2023 Subjective Patient seen and examined Patient sitting in chair Reports no slurred speech since admission BP was very elevated yesterday and chorthalidone/lisinopril resumed at half home dose Had an episode of hypotension this morning associated with dizziness while sitting. Denied any other complaints Denied hematochezia, nausea, vomiting, melena Denied cough, chest pain, SOB Denied fever, chills Denied dysuria, freq, urgency Physical Exam Constitutional: + well hydrated and + obese; no acute di stress Eyes: PERRL, conjunctivae normal, anicteric sclerae ENMT: external ear and nose normal, oropharynx normal Respiratory: normal respiratory effort, lungs clear to auscultation Cardiovascular: Rate/Rhythm: regular rate and regular rhythm S1 S2 Gastrointestinal (Abdomen): normal bowel sounds, soft, nontender, no hepatosplenomegaly Musculoskeletal: No pedal edema Neurologic: PERRL, EOMI, accommodation nl, no face palsy, no dysarthria Psychiatric: A+Ox3, euthymic affect Results & Data Results & Data Vital Signs (Past 12 Hours) Vital Signs Temp Pulse Pulse Resp BP BP Pulse Ox 06/06/23 11:11 37.0 C 61 18 77/56 L 95 06/06/23 11:00 105/52 L 06/06/23 07:35 36.7 C 71 18 178/97 H 96 06/06/23 03:22 36.5 C 63 18 102/66 93 06/06/23 00:00 74 O2 Del Method 06/06/23 11:11 Room Air 06/06/23 11:00 06/06/23 07:35 Room Air 06/06/23 03:22 Room Air 06/06/23 00:00 Laboratory Results Abnormal lab results 06/05/23 06/06/23 06/06/23 Range/Units 20:33 05:44 07:37 RBC 4.04 L (4.20-5.40) M/uL Hct 36.1 L (37.0-47.0) % Creatinine 1.36 H (0.6-1.2) mg/dl Glucose 113 H (70-99(Fasting)) mg/dl POC Glucose 103 H 120 H (70-99) mg/dl 06/06/23 Range/Units 11:31 RBC (4.20-5.40) M/uL Hct (37.0-47.0) % Creatinine (0.6-1.2) mg/dl Glucose (70-99(Fasting)) mg/dl POC Glucose 134 H (70-99) mg/dl
[2023-06-06] MEDS: PERPHENAZINE 2 MG TAB PO SCH (19:37)
[2023-06-06] MEDS: traZODone HCL 50 MG TAB PO SCH (19:37)
[2023-06-06] MEDS: ATORVASTATIN 10 MG TAB PO SCH (19:39)
[2023-06-06] MEDS: DOXEPIN HCL 25 MG CAPSULE PO SCH (19:40)
[2023-06-06] MEDS: LORazepam 0.5 MG TAB PO PRN (19:43)
[2023-06-07] MEDS: HEPARIN SOD 5,000 UNIT/0.5 ML VIAL SQ SCH ×3 (05:44→20:56)
[2023-06-07] MEDS: LEVOTHYROXINE SODIUM 125 MCG TABLET PO SCH (05:44)
--- NOTE | 2023-06-07 06:24 | Electrocardiogram Report ---
Test Reason : Blood Pressure : / mmHG Vent. Rate : 066 BPM Atrial Rate : 000 BPM P-R Int : 172 ms QRS Dur : 076 ms QT Int : 444 ms P-R-T Axes : 000 031 043 degrees QTc Int : 465 ms Sinus rhythm When compared with ECG of 27-NOV-2019 17:19, No significant change Confirmed by Mu Barclay [id number]) on 06/07/2023 6:23:52 AM Referred By: REFERRED SELF Confirmed By:Mu Barclay
[2023-06-07 06:26] LABS: Hematocrit (blood only) 35.1 % (37.0-47.0); Hemoglobin 12.2 g/dl (12.0-16.0); Mean Corpuscular Hgb Conc 34.8 g/dL (32.0-36.0); Mean Corpuscular Volume 89.1 fL (80.0-100.0); Platelet Count 198 K/uL (130-400); RDW Coefficient of Variation 12.5 % (11.5-14.5); RDW Standard Deviation 41.1 fL (36.4-46.3); Red Blood Count 3.94 M/uL (4.20-5.40)
[2023-06-07 06:39] LABS: BUN Creatinine Ratio 14.6 (10-20); Calcium 9.1 mg/dl (8.6-10.3); Creatinine Clr Calc Pharmacy 33.9 ml/min; Est GFR (African American) 41.7 ml/min; Est GFR (Non-African American) 35.9 ml/min; Magnesium 1.7 mg/dl (1.7-2.4); Phosphorus 3.5 mg/dl (2.5-4.9); Potassium 3.4 mmol/L (3.5-5.1)
[2023-06-07] MEDS: CITALOPRAM 20 MG TAB PO SCH ×2 (09:20→09:21)
[2023-06-07] MEDS: ASPIRIN 81 MG ECTAB PO SCH (09:20)
[2023-06-07] MEDS: CETIRIZINE HCL 10 MG TABLET PO SCH (09:20)
[2023-06-07] MEDS: ASCORBIC ACID 500 MG TAB PO SCH (09:20)
[2023-06-07] MEDS: OMEGA-3 (PURIFIED FISH OIL) 1 GM CAP PO SCH ×2 (09:21→19:57)
[2023-06-07] MEDS: VITAMIN B COMPLEX TAB PO SCH (09:21)
[2023-06-07] MEDS: METOPROLOL SUCC 50MG EXT REL TAB PO SCH (09:21)
[2023-06-07] MEDS: FAMOTIDINE 20 MG TAB PO SCH ×2 (09:21→19:59)
[2023-06-07] MEDS: TOCOPHERYL, DL-ALPHA 400 UNITS 180 MG CAP PO SCH ×2 (09:21→19:59)
[2023-06-07] MEDS: MONTELUKAST SODIUM 10 MG TABLET PO SCH (09:21)
[2023-06-07] MEDS: MAGNESIUM OXIDE 400 MG TAB PO SCH (09:21)
[2023-06-07] MEDS: tiZANidine HCL 4 MG TABLET PO PRN ×2 (10:57→19:55)
--- NOTE | 2023-06-07 12:52 | Hospitalist Progress Note ---
Date of Service June 07, 2023 Assessment & Plan (1) Hypotensive episode: Plan: Presented with low BP associated with slurred speech Systolic BP on presentation was in the 60's Possible related to hypovolemia + medication effect Received Epinephrine that was administered by EMS and IVF Received IV cefepime in ER Procalcitonin, Lactate, WBC are wnl No sign of infection so far. No further antibiotics Lisinopril and chlorthalidone stopped Continue to monitor BP Patient had very labile blood pressures from hypotension to very high I discussed the patient with Dr Syed. We discussed various management considerations He agrees with stopping lisinopril and chlorthalidone for now and monitoring patient in the hospital Slurred Speech Likely due to hypotension Resolved CT head showed no acute intracranial abnormality No focal neuro deficit on exam If develops any neurological symptoms, will consider MRI of brain Acute kidney injury on CKD 3 Likely related to hypotension Creatinine 1.8 on admission My review of [facility] records showed baseline Cr has been 1.2-1.3 and eGFR has been 45-55 Cr is 1.44 today Monitor Avoid nephrotoxic agents Continue monitor BMP while inpatient Hypomagnesium Mg 1.3 on admission Mg repleted Mg is 1.7 today Continue po mag Continue monitor electrolytes Diabetes mellitus, type II: Hold home Metformin Hba1c 5.9 BSG AC HS COPD (chronic obstructive pulmonary disease): Continue home inhalers Nocturnal hypoxemia: On 2L O2 HS History of heart attack: H/o [place] in 1996. Medically managed with aspirin, statin and beta hector. Continue home metoprolol succinate Hypertension: Med changes as above Hypothyroidism: Continue levothyroxine Anxiety and depression: Continue Perphenazine and Doxepin and celexa DVT px on heparin subq Code status Full code I spent a total of 50 minutes coordinating, documenting and providing care for this patient excluding time spent in performance of separately billed services Admission and Anticipated Discharge Date Admission Date: June 04, 2023 Subjective Patient seen and examined Patient sitting in chair Denied any new complaints today Denied dizziness Denied hematochezia, nausea, vomiting, melena Denied cough, chest pain, SOB Denied fever, chills Denied dysuria, freq, urgency Physical Exam Constitutional: + well hydrated and + obese; no acute di stress Eyes: PERRL, conjunctivae normal, anicteric sclerae ENMT: external ear and nose normal, oropharynx normal Respiratory: normal respiratory effort, lungs clear to auscultation Cardiovascular: Rate/Rhythm: regular rate and regular rhythm S1 S2 Gastrointestinal (Abdomen): normal bowel sounds, soft, nontender, no hepatosplenomegaly Musculoskeletal: No pedal edema Neurologic: PERRL, EOMI, accommodation nl, no face palsy, no dysarthria Psychiatric: A+Ox3, euthymic affect Results & Data Results & Data Vital Signs (Past 12 Hours) Vital Signs Temp Pulse Resp BP Pulse Ox O2 Del Method 06/07/23 11:43 36.9 C 58 L 18 97/63 L 93 Room Air 06/07/23 09:40 36.9 C 67 18 158/94 H 92 Room Air 06/07/23 03:25 37.1 C 60 18 96/57 L 92 Room Air Laboratory Results Abnormal lab results 06/06/23 06/06/23 06/07/23 Range/Units 16:32 20:08 05:57 RBC 3.94 L (4.20-5.40) M/uL Hct 35.1 L (37.0-47.0) % Sodium 135 L (136-145) mmol/L Potassium 3.4 L (3.5-5.1) mmol/L Creatinine 1.44 H (0.6-1.2) mg/dl Glucose 122 H (70-99(Fasting)) mg/dl POC Glucose 110 H 106 H (70-99) mg/dl 06/07/23 06/07/23 Range/Units 07:22 11:05 RBC (4.20-5.40) M/uL Hct (37.0-47.0) % Sodium (136-145) mmol/L Potassium (3.5-5.1) mmol/L Creatinine (0.6-1.2) mg/dl Glucose (70-99(Fasting)) mg/dl POC Glucose 125 H 142 H (70-99) mg/dl
[2023-06-07] MEDS: LORazepam 0.5 MG TAB PO PRN (19:55)
[2023-06-07] MEDS: PERPHENAZINE 2 MG TAB PO SCH (19:56)
[2023-06-07] MEDS: ATORVASTATIN 10 MG TAB PO SCH (19:58)
[2023-06-07] MEDS: DOXEPIN HCL 25 MG CAPSULE PO SCH (19:58)
[2023-06-07] MEDS: traZODone HCL 50 MG TAB PO SCH (20:00)
[2023-06-08] MEDS: LEVOTHYROXINE SODIUM 125 MCG TABLET PO SCH (05:44)
[2023-06-08] MEDS: HEPARIN SOD 5,000 UNIT/0.5 ML VIAL SQ SCH ×3 (05:44→21:49)
[2023-06-08] MEDS: FAMOTIDINE 20 MG TAB PO SCH ×2 (08:33→20:05)
[2023-06-08] MEDS: VITAMIN B COMPLEX TAB PO SCH (08:33)
[2023-06-08] MEDS: TOCOPHERYL, DL-ALPHA 400 UNITS 180 MG CAP PO SCH ×2 (08:33→20:04)
[2023-06-08] MEDS: CITALOPRAM 20 MG TAB PO SCH ×2 (08:33→08:37)
[2023-06-08] MEDS: ASCORBIC ACID 500 MG TAB PO SCH (08:33)
[2023-06-08] MEDS: MAGNESIUM OXIDE 400 MG TAB PO SCH (08:33)
[2023-06-08] MEDS: ASPIRIN 81 MG ECTAB PO SCH (08:33)
[2023-06-08] MEDS: CETIRIZINE HCL 10 MG TABLET PO SCH (08:34)
[2023-06-08] MEDS: METOPROLOL SUCC 50MG EXT REL TAB PO SCH (08:34)
[2023-06-08] MEDS: OMEGA-3 (PURIFIED FISH OIL) 1 GM CAP PO SCH ×2 (08:34→20:05)
[2023-06-08] MEDS: MONTELUKAST SODIUM 10 MG TABLET PO SCH (08:34)
[2023-06-08] MEDS: tiZANidine HCL 4 MG TABLET PO PRN ×2 (08:34→20:07)
[2023-06-08 08:59] LABS: BUN Creatinine Ratio 14.8 (10-20); Calcium 9.7 mg/dl (8.6-10.3); Creatinine Clr Calc Pharmacy 34.7 ml/min; Est GFR (African American) 42.4 ml/min; Est GFR (Non-African American) 36.5 ml/min; Magnesium 1.7 mg/dl (1.7-2.4); Phosphorus 3.7 mg/dl (2.5-4.9); Potassium 3.6 mmol/L (3.5-5.1)
--- NOTE | 2023-06-08 13:29 | Hospitalist Progress Note ---
Date of Service June 08, 2023 Assessment & Plan (1) Hypotensive episode: Plan: Presented with low BP associated with slurred speech Systolic BP on presentation was in the 60's Possible related to hypovolemia + medication effect Received Epinephrine that was administered by EMS and IVF Received IV cefepime in ER Procalcitonin, Lactate, WBC are wnl No sign of infection so far. No further antibiotics Lisinopril and chlorthalidone stopped Continue to monitor BP Patient had very labile blood pressures from hypotension to very high Today I discussed the patient with Marina Manager Dr Lepe He recommends changing patient's home metoprolol succinate 50mg daily to 25mg BID and giving some IVF He agrees with stopping lisinopril and chlorthalidone going forward even on discharge Slurred Speech Likely due to hypotension Resolved CT head showed no acute intracranial abnormality No focal neuro deficit on exam Acute kidney injury on CKD 3 Likely related to hypotension Creatinine 1.8 on admission My review of [facility] records showed baseline Cr has been 1.2-1.3 and eGFR has been 45-55 Cr is 1.42 today Monitor Avoid nephrotoxic agents Continue monitor BMP while inpatient Hypomagnesium Mg 1.3 on admission Mg repleted Mg is 1.7 today Continue po mag Continue monitor electrolytes Diabetes mellitus, type II: Hold home Metformin Hba1c 5.9 BSG AC HS COPD (chronic obstructive pulmonary disease): Continue home inhalers Nocturnal hypoxemia: On 2L O2 HS History of heart attack: H/o [place] in 1996. Medically managed with aspirin, statin and beta hector. Continue home metoprolol succinate Hypertension: Med changes as above Hypothyroidism: Continue levothyroxine Anxiety and depression: Continue Perphenazine and Doxepin and celexa DVT px on heparin subq Code status Full code I spent a total of 45 minutes coordinating, documenting and providing care for this patient excluding time spent in performance of separately billed services Admission and Anticipated Discharge Date Admission Date: June 04, 2023 Subjective Patient seen and examined Patient laying in bed Denied any new complaints today Denied dizziness when walking with therapist Denied hematochezia, nausea, vomiting, melena Denied cough, chest pain, SOB Denied fever, chills Denied dysuria, freq, urgency Physical Exam Constitutional: + well hydrated and + obese; no acute di stress Eyes: PERRL, conjunctivae normal, anicteric sclerae ENMT: external ear and nose normal, oropharynx normal Respiratory: normal respiratory effort, lungs clear to auscultation Cardiovascular: Rate/Rhythm: regular rate and regular rhythm S1 S2 Gastrointestinal (Abdomen): normal bowel sounds, soft, nontender, no hepatosplenomegaly Musculoskeletal: No pedal edema Neurologic: PERRL, EOMI, accommodation nl, no face palsy, no dysarthria Psychiatric: A+Ox3, euthymic affect Results & Data Results & Data Vital Signs (Past 12 Hours) Vital Signs Temp Pulse Pulse Resp BP BP Pulse Ox 06/08/23 11:20 36.9 C 53 L 19 80/53 L 92 06/08/23 08:31 142/88 H 06/08/23 08:30 06/08/23 08:05 36.8 C 70 18 107/72 97 06/08/23 06:00 53 L 06/08/23 03:28 36.4 C L 58 L 17 99/55 L 92 O2 Del Method 06/08/23 11:20 Room Air 06/08/23 08:31 06/08/23 08:30 Room Air 06/08/23 08:05 Room Air 06/08/23 06:00 06/08/23 03:28 Room Air Laboratory Results Abnormal lab results 06/07/23 06/08/23 06/08/23 Range/Units 16:06 07:26 08:16 Creatinine 1.42 H (0.6-1.2) mg/dl Glucose 150 H (70-99(Fasting)) mg/dl POC Glucose 103 H 128 H (70-99) mg/dl 06/08/23 Range/Units 11:11 Creatinine (0.6-1.2) mg/dl Glucose (70-99(Fasting)) mg/dl POC Glucose 209 H (70-99) mg/dl
[2023-06-08] MEDS: SODIUM CHLORIDE 0.9% 1,000 ML IV SCH (15:31)
[2023-06-08] MEDS: LORazepam 0.5 MG TAB PO PRN (20:03)
[2023-06-08] MEDS: PERPHENAZINE 2 MG TAB PO SCH (20:04)
[2023-06-08] MEDS: ATORVASTATIN 10 MG TAB PO SCH (20:06)
[2023-06-08] MEDS: DOXEPIN HCL 25 MG CAPSULE PO SCH (20:06)
[2023-06-08] MEDS: traZODone HCL 50 MG TAB PO SCH (20:06)
[2023-06-09] MEDS: SODIUM CHLORIDE 0.9% 1,000 ML IV SCH ×2 (05:27→21:09)
[2023-06-09] MEDS: HEPARIN SOD 5,000 UNIT/0.5 ML VIAL SQ SCH ×3 (05:28→21:36)
[2023-06-09] MEDS: LEVOTHYROXINE SODIUM 125 MCG TABLET PO SCH (05:28)
[2023-06-09 06:00] LABS: Hematocrit (blood only) 34.6 % (37.0-47.0); Hemoglobin 12.3 g/dl (12.0-16.0); Mean Corpuscular Hemoglobin 31.5 pg (25.0-34.0); Mean Corpuscular Hgb Conc 35.5 g/dL (32.0-36.0); Mean Corpuscular Volume 88.7 fL (80.0-100.0); Platelet Count 195 K/uL (130-400); RDW Coefficient of Variation 12.7 % (11.5-14.5); RDW Standard Deviation 40.7 fL (36.4-46.3); White Blood Count 6.69 K/ul (4.8-10.8)
[2023-06-09 06:19] LABS: BUN Creatinine Ratio 15.5 (10-20); Calcium 9.1 mg/dl (8.6-10.3); Creatinine Clr Calc Pharmacy 38.5 ml/min; Est GFR (African American) 47.6 ml/min; Magnesium 1.7 mg/dl (1.7-2.4); Phosphorus 3.7 mg/dl (2.5-4.9); Potassium 3.9 mmol/L (3.5-5.1)
[2023-06-09] MEDS: CETIRIZINE HCL 10 MG TABLET PO SCH (07:51)
[2023-06-09] MEDS: tiZANidine HCL 4 MG TABLET PO PRN ×2 (07:52→21:34)
[2023-06-09] MEDS: TOCOPHERYL, DL-ALPHA 400 UNITS 180 MG CAP PO SCH ×2 (07:52→21:33)
[2023-06-09] MEDS: MONTELUKAST SODIUM 10 MG TABLET PO SCH (07:52)
[2023-06-09] MEDS: VITAMIN B COMPLEX TAB PO SCH (07:52)
[2023-06-09] MEDS: CITALOPRAM 20 MG TAB PO SCH ×2 (07:52)
[2023-06-09] MEDS: ASPIRIN 81 MG ECTAB PO SCH (07:52)
[2023-06-09] MEDS: METOPROLOL SUCC 25MG EXT REL TAB PO SCH ×2 (07:52→21:35)
[2023-06-09] MEDS: MAGNESIUM OXIDE 400 MG TAB PO SCH (07:52)
[2023-06-09] MEDS: ASCORBIC ACID 500 MG TAB PO SCH (07:53)
[2023-06-09] MEDS: OMEGA-3 (PURIFIED FISH OIL) 1 GM CAP PO SCH ×2 (07:53→21:36)
[2023-06-09] MEDS: FAMOTIDINE 20 MG TAB PO SCH ×2 (07:53→21:35)
--- NOTE | 2023-06-09 12:05 | Hospitalist Progress Note ---
Date of Service June 09, 2023 Assessment & Plan (1) Hypotensive episode: Plan: Presented with low BP associated with slurred speech Systolic BP on presentation was in the 60's Possible related to hypovolemia + medication effect Received Epinephrine that was administered by EMS and IVF Received IV cefepime in ER Procalcitonin, Lactate, WBC are wnl No sign of infection so far. 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[employer] Dr Lepe recommends changing patient's home metoprolol succinate 50mg daily to 25mg BID which was started this morning Continue IVF He agrees with stopping lisinopril and chlorthalidone going forward even on discharge Will monitor today and possible discharge home tomorrow Slurred Speech Likely due to hypotension Resolved CT head showed no acute intracranial abnormality No focal neuro deficit on exam Acute kidney injury on CKD 3 Likely related to hypotension Creatinine 1.8 on admission My review of [facility] records showed baseline Cr has been 1.2-1.3 and eGFR has been 45-55 Cr is 1.29 today Monitor Avoid nephrotoxic agents Continue monitor BMP while inpatient Hypomagnesium Mg 1.3 on admission Mg repleted Mg is 1.7 today Continue po mag Continue monitor electrolytes Diabetes mellitus, type II: Hold home Metformin Hba1c 5.9 BSG AC HS COPD (chronic obstructive pulmonary disease): Continue home inhalers Nocturnal hypoxemia: On 2L O2 HS History of heart attack: H/o [place] in 1996. Medically managed with aspirin, statin and beta hector. Continue home metoprolol succinate Hypertension: Med changes as above Hypothyroidism: Continue levothyroxine Anxiety and depression: Continue Perphenazine and Doxepin and celexa DVT px on heparin subq Code status Full code I spent a total of 40 minutes coordinating, documenting and providing care for this patient excluding time spent in performance of separately billed services Admission and Anticipated Discharge Date Admission Date: June 04, 2023 Subjective Patient seen and examined Denied any new complaints today Denied dizziness Denied hematochezia, nausea, vomiting, melena Denied cough, chest pain, SOB Denied fever, chills Denied dysuria, freq, urgency Physical Exam Constitutional: + well hydrated and + obese; no acute di stress Eyes: PERRL, conjunctivae normal, anicteric sclerae ENMT: external ear and nose normal, oropharynx normal Respiratory: normal respiratory effort, lungs clear to auscultation Cardiovascular: Rate/Rhythm: regular rate and regular rhythm S1 S2 Gastrointestinal (Abdomen): normal bowel sounds, soft, nontender, no hepatosplenomegaly Musculoskeletal: No pedal edema Neurologic: PERRL, EOMI, accommodation nl, no face palsy, no dysarthria Psychiatric: A+Ox3, euthymic affect Results & Data Results & Data Vital Signs (Past 12 Hours) Vital Signs Temp Pulse Resp BP Pulse Ox O2 Del Method 06/09/23 07:52 36.3 C L 62 18 134/81 96 Room Air 06/09/23 07:50 Room Air 06/09/23 03:08 36.6 C 57 L 18 103/46 L 91 Room Air Laboratory Results Abnormal lab results 06/08/23 06/09/23 06/09/23 Range/Units 19:33 05:46 07:29 RBC 3.90 L (4.20-5.40) M/uL Hct 34.6 L (37.0-47.0) % Creatinine 1.29 H (0.6-1.2) mg/dl Glucose 122 H (70-99(Fasting)) mg/dl POC Glucose 138 H 127 H (70-99) mg/dl 06/09/23 Range/Units 11:04 RBC (4.20-5.40) M/uL Hct (37.0-47.0) % Creatinine (0.6-1.2) mg/dl Glucose (70-99(Fasting)) mg/dl POC Glucose 157 H (70-99) mg/dl
[2023-06-09] MEDS: traZODone HCL 50 MG TAB PO SCH (21:33)
[2023-06-09] MEDS: DOXEPIN HCL 25 MG CAPSULE PO SCH (21:34)
[2023-06-09] MEDS: PERPHENAZINE 2 MG TAB PO SCH (21:34)
[2023-06-09] MEDS: ATORVASTATIN 10 MG TAB PO SCH (21:35)
[2023-06-09] MEDS: LORazepam 0.5 MG TAB PO PRN (21:40)
[2023-06-10 06:36] LABS: Hematocrit (blood only) 34.3 % (37.0-47.0); Hemoglobin 11.9 g/dl (12.0-16.0); Mean Corpuscular Hemoglobin 31.6 pg (25.0-34.0); Mean Corpuscular Hgb Conc 34.7 g/dL (32.0-36.0); Mean Platelet Volume 12.2 fL (9.4-12.4); Platelet Count 188 K/uL (130-400); RDW Coefficient of Variation 12.7 % (11.5-14.5); RDW Standard Deviation 41.9 fL (36.4-46.3); Red Blood Count 3.77 M/uL (4.20-5.40); White Blood Count 7.54 K/ul (4.8-10.8)
[2023-06-10] MEDS: HEPARIN SOD 5,000 UNIT/0.5 ML VIAL SQ SCH (06:38)
[2023-06-10] MEDS: LEVOTHYROXINE SODIUM 125 MCG TABLET PO SCH (06:38)
[2023-06-10 06:45] LABS: BUN Creatinine Ratio 12.7 (10-20); Calcium 9.1 mg/dl (8.6-10.3); Creatinine Clr Calc Pharmacy 39.6 ml/min; Est GFR (African American) 48.9 ml/min; Est GFR (Non-African American) 42.2 ml/min; Magnesium 1.7 mg/dl (1.7-2.4); Phosphorus 3.6 mg/dl (2.5-4.9)
[2023-06-10] MEDS: OMEGA-3 (PURIFIED FISH OIL) 1 GM CAP PO SCH (07:48)
[2023-06-10] MEDS: MAGNESIUM OXIDE 400 MG TAB PO SCH (07:48)
[2023-06-10] MEDS: CETIRIZINE HCL 10 MG TABLET PO SCH (07:48)
[2023-06-10] MEDS: ASPIRIN 81 MG ECTAB PO SCH (07:48)
[2023-06-10] MEDS: METOPROLOL SUCC 25MG EXT REL TAB PO SCH (07:48)
[2023-06-10] MEDS: FAMOTIDINE 20 MG TAB PO SCH (07:48)
[2023-06-10] MEDS: ASCORBIC ACID 500 MG TAB PO SCH (07:48)
[2023-06-10] MEDS: CITALOPRAM 20 MG TAB PO SCH ×2 (07:48)
[2023-06-10] MEDS: TOCOPHERYL, DL-ALPHA 400 UNITS 180 MG CAP PO SCH (07:49)
[2023-06-10] MEDS: MONTELUKAST SODIUM 10 MG TABLET PO SCH (07:49)
[2023-06-10] MEDS: tiZANidine HCL 4 MG TABLET PO PRN (07:49)
[2023-06-10] MEDS: VITAMIN B COMPLEX TAB PO SCH (07:49)
[2023-06-10] MEDS: SODIUM CHLORIDE 0.9% 1,000 ML IV SCH (07:54)
--- NOTE | 2023-06-10 12:24 | Discharge Summary ---
Date of Service June 10, 2023 Admission HPI Per Admitting Provider 72 yo male with PMH of HTN, hypothyroidism, diabetes, Depression, left hip replacement was brought by EMS due to slurred speech. She said the feels dizzy. She said that she has low appetite. She said that she did not feel herself. She was found to be hypotensive in the 60's by EMS. Epinephrine and IVF administered by EMS. In the ER she received additional IVF. Her BP improves and her slurred speech resolved. Patient currently denies any headache, blurry vision, palpitation, weakness, chest pain, dysuria, nausea, vomiting or diarrhea. Admission Exam Per Admitting Provider General- No acute distress Head- atraumatic Eyes- PERRL, EOMI, ENT- oropharynx clear Neck- supple, no JVD Lungs- clear to auscultation Heart- regular rhythm; no murmur Abdomen- normal bowel sounds, soft, nontender Extremities- no calf tenderness Neuro- alert, oriented x 3; PERRL, EOMI; no facial palsy; no dysarthria Skin- warm & dry Principal Diagnosis Slurred speech Hypotension Acute on chronic kidney disease Discharge Exam Constitutional + well hydrated and + obese; no acute distress Eyes PERRL, conjunctivae normal, anicteric sclerae ENMT external ear and nose normal, oropharynx normal Respiratory normal respiratory effort, lungs clear to auscultation Cardiovascular Rate/Rhythm: regular rate and regular rhythm S1 S2 Gastrointestinal (Abdomen) normal bowel sounds, soft, nontender, no hepatosplenomegaly Musculoskeletal No pedal edema Neurologic PERRL, EOMI, accommodation nl, no face palsy, no dysarthria Psychiatric A+Ox3, euthymic affect Discharge Data Allergies Allergy/AdvReac Type Severity Reaction Status Date / Time Sulfa (Sulfonamide Allergy Severe face Verified 05/13/23 14:03 Antibiotics) tongue lips swelling,HEADACHE amoxicillin AdvReac Intermediate YEAST Verified 05/13/23 14:03 INFECTION clavulanic acid AdvReac Intermediate YEAST Verified 05/13/23 14:03 INFECTION codeine AdvReac Mild N/V Verified 05/13/23 14:03 Consultations 06/04/23 16:18 ED Decision to Admit Stat Ordered Studies 06/04/23 14:50 CT head/brain wo con Stat Hospital Course (1) Hypotensive episode: Presented with low BP associated with slurred speech Systolic BP on presentation was in the 60's Possible related to hypovolemia + medication effect Received Epinephrine that was administered by EMS and IVF Received IV cefepime in ER Procalcitonin, Lactate, WBC were within normal No sign of infection so far. No further antibiotics Lisinopril and chlorthalidone stopped Patient had very labile blood pressures from hypotension to very high Discussed with Cardiologists during her stay who recommends reducing patient's metoprolol succinate and making it BID Patient was on metoprolol succinate 50mg daily prior to presentation Patient discharged on metoprolol succinate 12.5mg bid Lisinopril and chlorthalidone were also discontinued and patient advised to stop them at home She is to keep home BP log for her PCP Slurred Speech Likely due to hypotension Resolved CT head showed no acute intracranial abnormality No focal neuro deficit on exam Acute kidney injury on CKD 3 Likely related to hypotension Creatinine 1.8 on admission My review of [facility] records showed baseline Cr has been 1.2-1.3 and eGFR has been 45-55 Cr is 1.26 today Hypomagnesium Mg 1.3 on admission Mg repleted Mg is 1.7 today Continue po mag on discharge Diabetes mellitus, type II: Continue home Metformin Hba1c 5.9 COPD (chronic obstructive pulmonary disease): Continue home inhalers Nocturnal hypoxemia: On 2L O2 HS History of heart attack: H/o [place] in 1996. Medically managed with aspirin, statin and beta hector. Metoprolol succinate dose adjusted as above Hypertension: Med changes as above Hypothyroidism: Continue levothyroxine Anxiety and depression: Continue Perphenazine and Doxepin and celexa Total Time Total Time Spent Total Time Spent (In Minutes): 35 Total Time Includes: Examination of the Patient, Discharge Planning and Medication Reconciliation Discharge Plan Discharge Items Patient Disposition: Home - Home Health Services Reason For Visit: HYPOTENSION Discharge Diagnosis: Slurred speech Hypotension Acute on chronic kidney disease Activity: Resume your previous activity Activity Comment: With walker Non-emergency contact: Primary Care Provider Call non-emergency contact if: you have any medication questions Follow-up/Referrals: Patti Posadas MD [Primary Care Provider] - (Date & Time 06/11/2023 2:00 PM Provider Patti Posadas MD [facility] ) Diet: Heart Healthy Addtl Attending Provider Instructions: Mrs Palmer. You came to the hospital due to slurred speech. You were noted to have significantly low blood pressure at the time. Your slurred speech resolved with resolution of low blood pressure. Please stop taking Lisinopril and Chlorthalidone Your Metoprolol succinate 50mg daily was changed to Metoprolol succinate 12.5mg twice a day. Stop taking diclofenac for now and use tylenol as needed for pains. Please monitor your blood pressure daily and keep a log for your Primary Doctor. It was a pleasure taking care of you. Pending Studies at Discharge: No Stand-Alone Forms: My [facility], Smoking Cessation Medications and DC Order Prescriptions: New metoprolol succinate 25 mg Tablet Extended Release 24 Hr 12.5 mg PO BID Qty: 30 0RF magnesium oxide 400 mg (241.3 mg magnesium) Tablet 400 mg PO QAM Qty: 30 0RF acetaminophen 650 mg tablet extended release 650 mg PO Q8H PRN (Reason: fever or pain) Qty: 60 0RF Continued diclofenac sodium 1 % gel 2 g topical DAILY montelukast 10 mg tablet 10 mg PO QAM hydroxyzine HCl 25 mg tablet 25 mg PO BID PRN (Reason: Anxiety) ascorbic acid (vitamin C) 1,000 mg tablet 1 g PO DAILY vitamin B complex Capsule 1 cap PO DAILY tizanidine 4 mg tablet 4 mg PO BID PRN (Reason: muscle spasticity) Qty: 30 1RF perphenazine 2 mg Tablet 4 mg PO HS trazodone 50 mg Tablet 50 mg PO HS cetirizine 10 mg Tablet 10 mg PO QAM atorvastatin 10 mg Tablet 10 mg PO HS doxepin 25 mg Capsule 25 mg PO HS levothyroxine 125 mcg Capsule 125 mcg PO DAILYBB famotidine 20 mg Tablet 20 mg PO AMHS metformin 500 mg tablet 500 mg PO BIDM citalopram 10 mg tablet 10 mg PO QAM aspirin 81 mg Tablet,Delayed Release (Dr/Ec) 81 mg PO QAM citalopram 20 mg tablet 20 mg PO QAM lorazepam 0.5 mg tablet 0.5 mg PO HS PRN (Reason: as directed) vitamin E (dl, acetate) 180 mg (400 unit) capsule 180 mg PO BID turmeric-turmeric root extract 450-50 mg capsule 1 cap PO QAM omega 1-oyr-cwt-[id number] oil 300 mg (120 mg- 180mg)-1,000 mg capsule 1 cap PO BID fluticasone propionate 50 mcg/actuation spray,suspension 1 spray INTRANASAL QPM Discontinued lisinopril 5 mg tablet 5 mg PO QAM metoprolol succinate 50 mg tablet extended release 24 hr 50 mg PO QAM diclofenac sodium 75 mg tablet,delayed release (DR/EC) 75 mg PO BID Qty: 60 2RF chlorthalidone 25 mg tablet 50 mg PO QAM Discharge Orders: Discharge Order (Routine); Ordered 06/10/23 Ordered By: Nidhi Rousseau Admission Data Admit Date/Time: 06/04/23 17:01 Attending Provider: iNdhi Rousseau I. Admit Provider: Tanisha Otto Primary Care Provider: Patti Posadas Other Providers: Tanisha Otto Other Interventions: Discharge Summary Assessment (RN) Last Done: 06/10/23 12:52
[2023-06-10] MEDS ORDERED: METOPROLOL SUCC 25MG EXT REL TAB PO SCH (21:00)
== END 2023-06-10 13:47 | disposition home health service (06) | DRG 315 ==
LOC: ED 14:30 → SUATTDRO 17:01 → 2E 17:01

== ENCOUNTER 2023-06-19 11:32 | Inpatient (IN) ==
[2023-06-19] MEDS ORDERED: LABETALOL HCL IV 5 MG/ML 20ML IV STA ×2 (11:53→13:27)
[2023-06-19] MEDS ORDERED: lisinopril 20 MG TAB PO STA (11:53)
--- NOTE | 2023-06-19 12:00 | Emergency Department Note ---
Impression & Plan Hypertension, Headache, Failure of outpatient treatment, Hypomagnesemia ED Provider Note NAME: WILNER KENNEDY AGE: 72 SEX: F : 1950 ARRIVES VIA: Ambulance INFORMANT: [Patient][family, ems] ED PROVIDER(S): [Law Barber MD] CHIEF COMPLAINT: Hypertension HISTORY OF PRESENT ILLNESS: The patient is a 72-year-old female who was discharged from our hospital on June 10. She had been in for slurred speech and low blood pressure as well as acute kidney injury. At discharge, she was to discontinue her lisinopril 5 mg, discontinue her chlorthalidone, she was to decrease her 50 mg of metoprolol daily to 12.5 mg twice a day. The patient states that the day after discharge, she went to her doctor's office and her blood pressure was high. She was told to restart her lisinopril at 5 mg. The patient states that she called in her blood pressure readings to her doctor's office yesterday, she was told to start lisinopril/hydrochlorothiazide at 10/12.5 mg, she has not made this change. The patient states that today, her blood pressure was very high, she has had a headache since last night. She presents for evaluation. PMHx/PSHx/Social Hx: See Below PHYSICAL EXAM: GENERAL: Patient is in no acute distress. HEENT: No acute trauma, normocephalic atraumatic, mucous membranes moist, no nasal congestion. NECK: No stridor, no adenopathy, no meningismus, trachea is midline. LUNGS: Clear to auscultation bilaterally, no wheeze, no rhonchi, breath sounds equal. HEART: Without murmurs gallops or rubs, regular rate and rhythm. ABDOMEN: Soft, nontender, no peritonitis. Obese. EXTREMITIES: No cyanosis, full range of motion of all the joints without pain or difficulty. NEUROLOGIC: Oriented x 3, no acute motor or sensory deficits, no focal weakness. SKIN: No jaundice, no diaphoresis. DIFFERENTIAL DIAGNOSIS: Failed outpatient management, uncontrolled hypertension, renal failure, electrolyte imbalance, [place], intracranial bleeding, among others. EMERGENCY DEPARTMENT PROCEDURES: MEDICAL DECISION MAKING: There is no leukocytosis or concerning anemia. There is a normal platelet count. No renal failure. Magnesium is low at 1.5. No concerning liver enzyme elevation. The patient appeared to be in a euthyroid state. ECG shows a normal sinus rhythm, no ischemia. Cardiac enzyme testing x 1 is not consistent with acute cardiac injury. Urinalysis does not show findings of infection. Chest x- ray does not show pneumonia or pneumothorax. Brain CT shows no acute bleed or mass effect. On exam, there were no focal neurologic deficits. The patient was quite hypertensive. The patient received IV labetalol, 10 mg, and repeat IV 10 mg dose was then given. She was given oral lisinopril, 20 mg. She received IV magnesium, she was given a dose of oral Tylenol. Patient's blood pressure has improved. I do think she will require a hospital stay to be sure we have her on the correct medications for her blood pressure. She has not done well as an outpatient. I did speak with the patient and case management, the on-call hospitalist was consulted. Prior/Outside records/notes reviewed: Discharge summary note from 06/10/2023 discussing her admission for slurred speech and hypotension and the changes to be made at discharge. ECG per my interpretation: Indication was hypertension. The ECG shows a normal sinus rhythm with a rate of 93. There is some nonspecific ST changes diffusely. There is no ST ovation, no PVCs but the QTc is 465. Continuous Cardiac Monitoring per my interpretation: An order was placed for continuous cardiac monitoring. The monitor shows a rate of 80 with normal sinus rhythm. Imaging/x-ray results per my interpretation: Chest x-ray shows some chronic change, no pneumonia or pneumothorax, no CHF. Chronic Medical/Social conditions affecting care: Hypertension, advanced age. Care/Management discussed with: Case management, the on-call hospitalist. Level of care consideration(s): After review of the information above and other included data: --I believe the patient requires escalation of care to admission DISPOSITION: Admission Past Med/Surg History Medical History CKD (chronic kidney disease), stage III Hypotensive episode Diabetes mellitus, type II COPD (chronic obstructive pulmonary disease) Nocturnal hypoxemia 2L O2 HS Obesity Hypothyroidism Dyslipidemia Fatty liver Acid reflux well controlled Arthritis Degenerative disc disease Sciatica Anxiety and depression Thyroid enlarged no dysphagia Asthma mild, "well controlled and stable", rare inhaler use History of heart attack 1996- medically managed Hypertension Surgical History History of total left hip arthroplasty (~11/2019) History of colonoscopy History of left cataract surgery History of right cataract surgery History of right hip replacement History of hysterectomy History of hernia repair History of cardiac cath FOLLOWING HEART ATTACK, NO FINDINGS 1996 Family History Mother Family history of diabetes mellitus Aunt Family history of diabetes mellitus Son Family history of colon cancer Social History Smoking Status: Never smoker Tobacco Type: Cigarettes Second Hand Exposure: No; Do You Dip or Chew Tobacco: No; Tobacco Cessation Education Requested by Patient: No Hx Alcohol Use: No Hx Substance Use: No Preferred Language: Spanish Communication Ability: Effective Visual Impairment: No Limitations Hearing Ability: Normal 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 Required: No Beliefs That Will Affect Care: None Current Living Situation: Alone Current Living Situation Comment: [facility], independent living current occupational status: retired Feels Safe at Home: Yes Safety Concerns Comment: office of aging is visiting her tomorrow regarding getting more help @ home Assistive Devices: Cane, CPAP and Denture - Upper Allergies Allergies Allergy/AdvReac Type Severity Reaction Status Date / Time Sulfa (Sulfonamide Allergy Severe face Verified 05/13/23 14:03 Antibiotics) tongue lips swelling,HEADACHE amoxicillin AdvReac Intermediate YEAST Verified 05/13/23 14:03 INFECTION clavulanic acid AdvReac Intermediate YEAST Verified 05/13/23 14:03 INFECTION codeine AdvReac Mild N/V Verified 05/13/23 14:03 Home Meds Home Medications Medication Instructions Recorded Confirmed atorvastatin 10 mg tablet 10 mg PO HS 08/14/19 06/19/23 cetirizine 10 mg tablet 10 mg PO QAM 08/14/19 06/19/23 doxepin 25 mg capsule 25 mg PO HS 08/14/19 06/19/23 levothyroxine 125 mcg capsule 125 mcg PO DAILYBB 08/14/19 06/19/23 perphenazine 2 mg tablet 4 mg PO HS 08/14/19 06/19/23 trazodone 50 mg tablet 50 mg PO HS 08/14/19 06/19/23 famotidine 20 mg tablet 20 mg PO AMHS 08/19/19 06/19/23 ascorbic acid (vitamin C) 1,000 mg 1 g PO DAILY 05/13/23 06/19/23 tablet diclofenac sodium 1 % topical gel 1 g topical BID PRN Pain 05/13/23 06/19/23 hydroxyzine HCl 25 mg tablet 25 mg PO BID PRN Anxiety 05/13/23 06/19/23 montelukast 10 mg tablet 10 mg PO QAM 05/13/23 06/19/23 vitamin B complex 1 cap PO DAILY 05/13/23 06/19/23 aspirin 81 mg tablet,delayed 81 mg PO QAM 06/04/23 06/19/23 release citalopram 10 mg tablet 10 mg PO QAM 06/04/23 06/19/23 citalopram 20 mg tablet 20 mg PO QAM 06/04/23 06/19/23 fluticasone propionate 50 1 spray intranasal QPM 06/04/23 06/19/23 mcg/actuation nasal spray,suspension lorazepam 0.5 mg tablet 0.5 mg PO HS PRN as directed 06/04/23 06/19/23 metformin 500 mg tablet 500 mg PO BIDM 06/04/23 06/19/23 omega-3 300 mg-dha 120 mg-epa 180 1 cap PO BID 06/04/23 06/19/23 mg-fish oil 1,000 mg capsule turmeric 450 mg-turmeric root 1 cap PO QAM 06/04/23 06/19/23 extract 50 mg capsule vitamin E (dl, acetate) 180 mg 180 mg PO BID 06/04/23 06/19/23 (400 unit) capsule fluticasone 250 mcg-salmeterol 50 1 inh inhalation BID 06/19/23 06/19/23 mcg/dose blistr powdr for inhalation (Advair Diskus) lisinopril 10 0 tab PO DAILY 06/19/23 06/19/23 mg-hydrochlorothiazide 12.5 mg tablet lisinopril 5 mg tablet 5 mg PO QAM 06/19/23 06/19/23 metoprolol succinate 25 mg 25 mg PO BID 06/19/23 06/19/23 tablet,extended release 24 hr tizanidine 4 mg tablet 4 mg PO BID muscle spasticity 06/19/23 06/19/23 Previous Rx's Medication Instructions Recorded acetaminophen 650 mg 650 mg PO Q8H PRN fever or pain 06/10/23 tablet,extended release #60 tabs magnesium oxide 400 mg (241.3 mg 400 mg PO QAM #30 tabs 06/10/23 magnesium) tablet Results & Data (ED) Vital Signs Vital Signs - 24 hr 06/19/23 11:47 06/19/23 11:58 06/19/23 12:15 Temperature 37.3 C Temperature Source Oral Pulse Rate 95 H 88 85 Pulse Rate [Left Finger] Respiratory Rate 20 Blood Pressure 222/147 H 222/147 H Blood Pressure [Right Arm] Blood Pressure Mean 172 Blood Pressure Mean [Right Arm] Blood Pressure Position [Right Arm] Pulse Oximetry 95 Oxygen Delivery Method Room Air Sepsis Recent Fever Within 48 Hours No Sepsis New/Unexplained Change in Mental Status No Sepsis Action Taken by Nursing No Action Required 06/19/23 12:19 06/19/23 12:40 06/19/23 13:30 Temperature Temperature Source Pulse Rate Pulse Rate [Left Finger] 84 81 88 Respiratory Rate 20 20 20 Blood Pressure Blood Pressure [Right Arm] 186/89 H 178/93 H 158/112 H Blood Pressure Mean Blood Pressure Mean [Right Arm] 121 121 127 Blood Pressure Position [Right Arm] Sitting Sitting Sitting Pulse Oximetry 93 93 98 Oxygen Delivery Method Sepsis Recent Fever Within 48 Hours Sepsis New/Unexplained Change in Mental Status Sepsis Action Taken by [facility] Medications Current Medication List: was personally reviewed by me Laboratory Data Attestation: I reviewed the patient's lab results. 06/19/23 12:20 06/19/23 12:20 Lab Results 06/19/23 06/19/23 Range/Units 12:08 12:20 WBC 7.55 (4.8-10.8) K/ul RBC 4.43 (4.20-5.40) M/uL Hgb 13.6 (12.0-16.0) g/dl Hct 39.6 (37.0-47.0) % MCV 89.4 (80.0-100.0) fL MCH 30.7 (25.0-34.0) pg MCHC 34.3 (32.0-36.0) g/dL RDW Std Deviation 40.9 (36.4-46.3) fL RDW Coeff of Jennifer 12.5 (11.5-14.5) % Plt Count 226 (130-400) K/uL MPV 11.6 (9.4-12.4) fL Immature Gran % (Auto) 0.3 % Neut % (Auto) 61.4 % Lymph % (Auto) 20.7 % Fisher % (Auto) 11.4 % Eos % (Auto) 5.7 % Baso % (Auto) 0.5 % Neut # (Auto) 4.64 (1.40-6.50) K/uL Lymph # (Auto) 1.56 (1.20-3.40) K/uL Fisher # (Auto) 0.86 H (0.11-0.59) K/uL Eos # (Auto) 0.43 (0.00-0.50) K/uL Baso # (Auto) 0.04 (0.00-0.20) K/uL Immature Gran # (Auto) 0.02 (0.01-0.20) K/uL Sodium 139 (136-145) mmol/L Potassium 3.8 (3.5-5.1) mmol/L Chloride 100 (98-107) mmol/L Carbon Dioxide 28 (21-32) mmol/L Anion Gap 11 (3-11) BUN 12 (6-23) mg/dl Creatinine 1.11 (0.6-1.2) mg/dl Est Cr Clr Drug Dosing 45.0 ml/min Est GFR ( Amer) 57.1 ml/min Est GFR (Non-Af Amer) 49.2 ml/min BUN/Creatinine Ratio 10.8 (10-20) Glucose 105 H (70-99(Fasting)) mg/dl Calcium 10.1 (8.6-10.3) mg/dl Magnesium 1.5 L (1.7-2.4) mg/dl Total Bilirubin 0.6 (0.2-1.0) mg/dl AST 28 (13-39) U/L ALT 29 (7-52) U/L Alkaline Phosphatase 58 (34-104) U/L Troponin I High Sens 5.7 (0-14) pg/ml Total Protein 7.4 (6.0-8.3) gm/dl Albumin 4.4 (3.4-5.0) gm/dl Globulin 3.0 (2.5-4.0) gm/dl Albumin/Globulin Ratio 1.5 (0.9-2) TSH 0.316 (0.300-4.500) uIu/ml Urine Color Yellow Urine Appearance Clear (Clear) Urine pH 8.0 H (4.5-7.5) Ur Specific [place] 1.008 (1.000-1.030) Urine Protein 1+ H (Negative) Urine Glucose (UA) Negative (Negative) Urine Ketones Negative (Negative) Urine Blood Negative (Negative) Urine Nitrite Negative (Negative) Urine Bilirubin Negative (Negative) Urine Urobilinogen Negative (Negative) Ur Leukocyte Esterase Negative (Negative) Urine WBC (Auto) 1-5 (0-5) /hpf Urine RBC (Auto) 0-4 (0-4) /hpf U Hyaline Cast (Auto) 0 (0-5) /lpf U Epithel Cells (Auto) 10-20 H (0-5) /lpf Urine Bacteria (Auto) Negative (Negative) Administered Medications Insulin Aspart (Insulin Aspart Per Unit Charge) 0 units SC ACHS EROS Stop: 07/19/23 16:29 Last Admin: 06/19/23 16:32 Dose: Not Given Documented By: MAGEN Discontinued Medications Acetaminophen (Acetaminophen 500 Mg Tab) 1,000 mg PO NOW STA Stop: 06/19/23 13:36 Last Admin: 06/19/23 13:53 Dose: 1,000 mg Documented By: ALEX Magnesium Sulfate/Dextrose (Magnesium Sulfate / D5w) 1 gm in 100 mls @ 100 mls/hr IV NOW STA Stop: 06/19/23 14:23 Last Infusion: 06/19/23 14:51 Dose: Infused Documented By: Admin: 06/19/23 13:54 Dose: 100 mls/hr Documented By: ALEX Magnesium Sulfate/Dextrose (Magnesium Sulfate / D5w) 1 gm in 100 mls @ 50 mls/hr IV ONE STA Stop: 06/19/23 17:00 Last Infusion: 06/19/23 16:27 Dose: Infused Documented By: Admin: 06/19/23 15:24 Dose: 50 mls/hr Documented By: MAGEN Labetalol HCl (Labetalol Hcl Iv 5 Mg/Ml 20ml) 10 mg IV NOW STA Stop: 06/19/23 11:54 Last Admin: 06/19/23 12:15 Dose: 10 mg Documented By: ALEX Co-signed By: LYNNETTE Labetalol HCl (Labetalol Hcl Iv 5 Mg/Ml 20ml) 10 mg IV NOW STA Stop: 06/19/23 13:28 Last Admin: 06/19/23 14:04 Dose: 10 mg Documented By: ALEX Co-signed By: CRISTIN Lisinopril (Lisinopril 20 Mg Tab) 20 mg PO NOW STA Stop: 06/19/23 11:54 Last Admin: 06/19/23 13:51 Dose: 20 mg Documented By: ALEX Imaging Data Radiologist's Impression: Chest X-Ray 06/19/23 11:53 SINGLE VIEW CHEST CLINICAL HISTORY: Generalized weakness. FINDINGS: An AP, portable, upright chest radiograph is compared to study dated 06/04/2023 and correlated with chest CT dated 12/09/2013. The cardiomediastinal silhouette is unremarkable noting atherosclerotic calcification of the thoracic aorta. Emphysema and chronic interstitial thickening is similar to previous. There is bibasilar scarring/atelectasis. No airspace consolidation or large pleural effusion is identified. No pneumothorax is seen. The skeletal structures are osteopenic. The bony thorax is grossly intact. Arthritic change is seen in the shoulders. IMPRESSION: No active disease in the chest. ACT 112: Negative or not required by law. Electronically signed by: Law Cortez M.D. 06/19/2023 12:[address] 06/19/23 11:53 CT SCAN OF THE BRAIN WITHOUT IV CONTRAST CLINICAL HISTORY: Headache. Hypertension. COMPARISON STUDY: CT of the brain dated 06/04/2023. TECHNIQUE: Unenhanced axial CT scan of the brain is performed from the vertex to the skull base. A dose lowering technique was utilized adhering to the principles of ALARA. CT DOSE: 625.8 mGy.cm FINDINGS: Brain parenchyma: There is age-related involutional change noting mild to moderate subcortical and periventricular microangiopathic disease. There is no hemorrhage, mass effect, or evidence of acute territorial ischemia by CT criteria. Mineralization is noted in the basal ganglia. Pelletier-white matter differentiation is preserved. No extra-axial fluid collection is seen. Ventricles, sulci, cisterns: Prominent secondary to involutional change. Intracranial vasculature: There is atherosclerotic calcification of the cavernous carotid arteries. Calvarium: Unremarkable. Sinuses and mastoids: The visualized paranasal sinuses are clear. The mastoid air cells are well pneumatized. Orbits: The bony orbits are grossly intact. There are bilateral ocular lens implants. IMPRESSION: There is no hemorrhage, mass effect, or evidence of acute territorial ischemia by CT criteria. ACT 112: Negative or not required by law. Electronically signed by: Law Cortez M.D. 06/19/2023 12:15 PM Discharge Plan Visit Data Chief Complaint: Hypertension Stated Complaint: HEADACHE, HTN ED Provider: Law Barber Discharge Problem: Hypertension, Headache, Failure of outpatient treatment, Hypomagnesemia Patient Disposition: Admitted As Inpatient Condition: Fair Discharge Instructions Interventions: ED Discharge Assessment Last Done: 06/19/23 16:34 Discharge Problem: Hypertension Qualifiers: Hypertension type: unspecified Qualified Code(s): I10 - Essential (primary) hypertension Headache Qualifiers: Headache type: unspecified Headache chronicity pattern: acute headache I ntractability: not intractable Qualified Code(s): R51.9 - Headache, unspecified
--- NOTE | 2023-06-19 12:16 | CT Scan Report ---
CT SCAN OF THE BRAIN WITHOUT IV CONTRAST CLINICAL HISTORY: Headache. Hypertension. COMPARISON STUDY: CT of the brain dated 06/04/2023. TECHNIQUE: Unenhanced axial CT scan of the brain is performed from the vertex to the skull base. A do se lowering technique was utilized adhering to the principles of ALARA. CT DOSE: 625.8 mGy.cm FINDINGS: Brain parenchyma: There is age-related involutional change noting mild to moderate subcortical and pe riventricular microangiopathic disease. There is no hemorrhage, mass effect, or evidence of acute ter ritorial ischemia by CT criteria. Mineralization is noted in the basal ganglia. Pelletier-white matter dif ferentiation is preserved. No extra-axial fluid collection is seen. Ventricles, sulci, cisterns: Prominent secondary to involutional change. Intracranial vasculature: There is atherosclerotic calcification of the cavernous carotid arteries. Calvarium: Unremarkable. Sinuses and mastoids: The visualized paranasal sinuses are clear. The mastoid air cells are well pneu matized. Orbits: The bony orbits are grossly intact. There are bilateral ocular lens implants. IMPRESSION: There is no hemorrhage, mass effect, or evidence of acute territorial ischemia by CT jatinder lozano. ACT 112: Negative or not required by law. Electronically signed by: Law Cortez M.D. 06/19/2023 12:15 PM
--- NOTE | 2023-06-19 12:18 | XRay Report ---
SINGLE VIEW CHEST CLINICAL HISTORY: Generalized weakness. FINDINGS: An AP, portable, upright chest radiograph is compared to study dated 06/04/2023 and correla russ with chest CT dated 12/09/2013. The cardiomediastinal silhouette is unremarkable noting atheroscle rotic calcification of the thoracic aorta. Emphysema and chronic interstitial thickening is similar t o previous. There is bibasilar scarring/atelectasis. No airspace consolidation or large pleural effus ion is identified. No pneumothorax is seen. The skeletal structures are osteopenic. The bony thorax i s grossly intact. Arthritic change is seen in the shoulders. IMPRESSION: No active disease in the chest. ACT 112: Negative or not required by law. Electronically signed by: Law Cortez M.D. 06/19/2023 12:17 PM
[2023-06-19 12:40] LABS: Appearance Urine Clear (Clear); Bacteria Urine Automated Negative (Negative); Bilirubin Urine Negative (Negative); Blood Urine Negative (Negative); Cast Urine Automated 0 /lpf (0-5); Color Urine Yellow; Glucose Urine UA Negative (Negative); Ketones Urine Negative (Negative); Leukocyte Esterase Urine Negative (Negative); Nitrite Urine Negative (Negative); RBC Urine Automated 0-4 /hpf (0-4); Specific Gravity Urine 1.008 (1.000-1.030); Urobilinogen Urine Negative (Negative)
[2023-06-19 12:41] LABS: Protein Urine 1+ (Negative)
[2023-06-19 12:54] LABS: Basophils # (auto) 0.04 K/uL (0.00-0.20); Basophils % (auto) 0.5 %; Eosinophils # (auto) 0.43 K/uL (0.00-0.50); Eosinophils % (auto) 5.7 %; Hematocrit (blood only) 39.6 % (37.0-47.0); Hemoglobin 13.6 g/dl (12.0-16.0); Immature Granulocytes # (auto) 0.02 K/uL (0.01-0.20); Immature Granulocytes % (auto) 0.3 %; Lymphocytes # (auto) 1.56 K/uL (1.20-3.40); Lymphocytes % (auto) 20.7 %; Mean Corpuscular Hemoglobin 30.7 pg (25.0-34.0); Mean Corpuscular Hgb Conc 34.3 g/dL (32.0-36.0); Mean Corpuscular Volume 89.4 fL (80.0-100.0); Mean Platelet Volume 11.6 fL (9.4-12.4); Monocytes # (auto) 0.86 K/uL (0.11-0.59); Monocytes % (auto) 11.4 %; Neutrophils # (auto) 4.64 K/uL (1.40-6.50); Neutrophils % (auto) 61.4 %; Platelet Count 226 K/uL (130-400); RDW Coefficient of Variation 12.5 % (11.5-14.5); RDW Standard Deviation 40.9 fL (36.4-46.3); Red Blood Count 4.43 M/uL (4.20-5.40); White Blood Count 7.55 K/ul (4.8-10.8)
[2023-06-19 13:12] LABS: Albumin Globulin Ratio 1.5 (0.9-2); Albumin Level 4.4 gm/dl (3.4-5.0); BUN Creatinine Ratio 10.8 (10-20); Bilirubin,Total 0.6 mg/dl (0.2-1.0); Calcium 10.1 mg/dl (8.6-10.3); Est GFR (African American) 57.1 ml/min; Est GFR (Non-African American) 49.2 ml/min; Magnesium 1.5 mg/dl (1.7-2.4); Potassium 3.8 mmol/L (3.5-5.1); Total Protein 7.4 gm/dl (6.0-8.3)
[2023-06-19 13:18] LABS: Troponin I High Sensitivity 5.7 pg/ml (0-14)
[2023-06-19] MEDS ORDERED: MAGNESIUM SULFATE / D5W 1 GM/100 ML BAG IV STA ×2 (13:24→15:01)
[2023-06-19 13:25] LABS: Thyroid Stimulating Hormone 0.316 uIu/ml (0.300-4.500)
[2023-06-19] MEDS ORDERED: ACETAMINOPHEN 500 MG TAB PO STA (13:35)
--- NOTE | 2023-06-19 13:45 | History & Physical Report ---
Date of Service June 19, 2023 Assessment & Plan (1) Hypertensive urgency: Plan: Patient is 72 y/o F with PMH prior [place], HTN, dyslipidemia, CKD III, COPD, DM II, ADRI, anxiety, obesity presented to ER with complaint of high blood pressure and headache. Recent admission 05/2023 for hypotension, ADI and lisinopril and chlorthalidone were held and metoprolol succinate was decreased from 50 mg daily to 12.5 mg twice daily. Follow up with PCP lisinopril 5mg restarted and 25 mg metoprolol BID. Home BP readings remained elevated and pt prescribed lisinopril 10 mg/HCTZ 12.5 mg daily however did not receive yet from mail order pharmacy In ER afebrile, P: 95, BP: 222/147, 95% RA. CT Head: no acute intracranial findings CXR: no infiltrate or effusion In ER given labetalol 10mg IV x 2 doses, lisinopril 20mg with BP improving to 159/79, HR in 80's DAVENPORT may be related to HTN. Normal troponin, renal functions at baseline Start lisinopril 10mg, HCTZ 12.5mg daily Continue metoprolol BID Hydralazine prn HTN Monitor BP CBC, BMP in am (2) Hypomagnesemia: Plan: magnesium: 1.5 In ER given magnesium sulfate 1GM IV Replace and monitor Continue home oral magnesium supplement (3) CKD (chronic kidney disease), stage III: Plan: Recent ADI. Per review Creatinine 1.8 on 06/04/2023 trended down to 1.26 on 06/10/2023. Today Cr: 1.1. Baseline Cr ~1.2 Monitor renal functions, avoid nephrotoxic agents when possible (4) COPD (chronic obstructive pulmonary disease): Plan: No signs exacerbation Continue home inhalers (5) Dyslipidemia: Plan: Continue atorvastatin (6) Diabetes mellitus, type II: Plan: A1c: 5.9 on 06/05/23 Random glucose 105 Hold metformin Novolog correction sliding scale only at this time. Monitor BSGs (7) History of heart attack: Plan: History TN 1996 No CP or SOB. Negative troponin. Continue aspirin, atorvastatin, metoprolol (8) Anxiety and depression: Plan: Continue home medications Follows with psychiatry (9) ADRI (obstructive sleep apnea): Plan: Continue CPAP, 2L O2 HS Patient states hasn't been using CPAP regularly (10) Acid reflux: Plan: Continue Pepcid DVT Prophylaxis Lovenox SQ Full Code as per discussion with pt Follows with Dr Posadas for routine care Pt was seen and care coordinated with Dr Mohan. See addendum History of Present Illness Chief Complaint: HTN Primary Care Provider: Patti Posadas MD Patient is 72 y/o F with PMH prior [place], HTN, dyslipidemia, CKD III, COPD, DM II, ADRI, anxiety, obesity presented to ER with complaint of high blood pressure and headache. History obtained from patient as well as inpatient and outpatient chart review. Admitted here at [facility] on 06/04/2023-06/10/2023 for hypotension, ADI, slurred speech thought likely secondary to hypotensive episode. During admission her lisinopril and chlorthalidone were held and metoprolol succinate was decreased from 50 mg daily to 12.5 mg twice daily. She was seen at PCPs office 06/11/2023 and had BP of 145/95. She was instructed to start taking 25 mg metoprolol tartrate twice daily and resume her lisinopril at 5 mg daily. Patient unsure if she is taking metoprolol succinate or tartrate 25mg BID. Patient had been taking her BP daily and BPs were running 150s to 170s systolic and 80s to 90s diastolic. Yesterday PCP instructed patient to start lisinopril 10 mg/HCTZ 12.5 mg daily, however prescription was sent to mail order pharmacy and has not received medication yet. Patient presents to ER today with complaint of elevated BP and DAVENPORT. States started with frontal and posterior headache last night that has continued this morning. States had nausea this morning and was given Zofran by EMS with resolution of nausea. Denies fever/chills, diaphoresis, V/D/C, dizziness, syncope, vision changes, CP, SOB, orthopnea, palpitations, cough, sore throat, otalgia, rhinorrhea, abdominal pain, paresthesias, weakness, extremity weakness, extremity edema, rashes, urinary symptoms. Allergies Allergy/AdvReac Type Severity Reaction Status Date / Time Sulfa (Sulfonamide Allergy Severe face Verified 05/13/23 14:03 Antibiotics) tongue lips swelling,HEADACHE amoxicillin AdvReac Intermediate YEAST Verified 05/13/23 14:03 INFECTION clavulanic acid AdvReac Intermediate YEAST Verified 05/13/23 14:03 INFECTION codeine AdvReac Mild N/V Verified 05/13/23 14:03 Home Medications Medication Instructions Recorded Confirmed Type atorvastatin 10 mg tablet 10 mg PO HS 08/14/19 06/19/23 History cetirizine 10 mg tablet 10 mg PO QAM 08/14/19 06/19/23 History doxepin 25 mg capsule 25 mg PO HS 08/14/19 06/19/23 History levothyroxine 125 mcg capsule 125 mcg PO DAILYBB 08/14/19 06/19/23 History perphenazine 2 mg tablet 4 mg PO HS 08/14/19 06/19/23 History trazodone 50 mg tablet 50 mg PO HS 08/14/19 06/19/23 History famotidine 20 mg tablet 20 mg PO AMHS 08/19/19 06/19/23 History ascorbic acid (vitamin C) 1,000 mg 1 g PO DAILY 05/13/23 06/19/23 History tablet diclofenac sodium 1 % topical gel 1 g topical BID PRN Pain 05/13/23 06/19/23 History hydroxyzine HCl 25 mg tablet 25 mg PO BID PRN Anxiety 05/13/23 06/19/23 History montelukast 10 mg tablet 10 mg PO QAM 05/13/23 06/19/23 History vitamin B complex 1 cap PO DAILY 05/13/23 06/19/23 History aspirin 81 mg tablet,delayed 81 mg PO QA 06/04/23 06/19/23 History release citalopram 10 mg tablet 10 mg PO QAM 06/04/23 06/19/23 History citalopram 20 mg tablet 20 mg PO QAM 06/04/23 06/19/23 History fluticasone propionate 50 1 spray intranasal QPM 06/04/23 06/19/23 History mcg/actuation nasal spray,suspension lorazepam 0.5 mg tablet 0.5 mg PO HS PRN as directed 06/04/23 06/19/23 History metformin 500 mg tablet 500 mg PO BIDM 06/04/23 06/19/23 History omega-3 300 mg-dha 120 mg-epa 180 1 cap PO BID 06/04/23 06/19/23 History mg-fish oil 1,000 mg capsule turmeric 450 mg-turmeric root 1 cap PO QAM 06/04/23 06/19/23 History extract 50 mg capsule vitamin E (dl, acetate) 180 mg 180 mg PO BID 06/04/23 06/19/23 History (400 unit) capsule acetaminophen 650 mg 650 mg PO Q8H PRN fever or pain 06/10/23 06/19/23 Rx tablet,extended release #60 tabs magnesium oxide 400 mg (241.3 mg 400 mg PO QAM #30 tabs 06/10/23 06/19/23 Rx magnesium) tablet fluticasone 250 mcg-salmeterol 50 1 inh inhalation BID 06/19/23 06/19/23 History mcg/dose blistr powdr for inhalation (Advair Diskus) lisinopril 10 0 tab PO DAILY 06/19/23 06/19/23 History mg-hydrochlorothiazide 12.5 mg tablet lisinopril 5 mg tablet 5 mg PO QAM 06/19/23 06/19/23 History metoprolol succinate 25 mg 25 mg PO BID 06/19/23 06/19/23 History tablet,extended release 24 hr tizanidine 4 mg tablet 4 mg PO BID muscle spasticity 06/19/23 06/19/23 History Past Med/Surg History Medical History (Updated 06/19/23 @ 19:44 by Jimena Patton PA-C) ADRI (obstructive sleep apnea) CKD (chronic kidney disease), stage III Hypotensive episode Diabetes mellitus, type II COPD (chronic obstructive pulmonary disease) Nocturnal hypoxemia 2L O2 HS Obesity Hypothyroidism Dyslipidemia Fatty liver Acid reflux well controlled Arthritis Degenerative disc disease Sciatica Anxiety and depression Thyroid enlarged no dysphagia Asthma mild, "well controlled and stable", rare inhaler use History of heart attack 1996- medically managed Hypertension Surgical History History of total left hip arthroplasty (~11/2019) History of colonoscopy History of left cataract surgery History of right cataract surgery History of right hip replacement History of hysterectomy History of hernia repair History of cardiac cath FOLLOWING HEART ATTACK, NO FINDINGS 1996 Family History Mother Family history of diabetes mellitus Aunt Family history of diabetes mellitus Son Family history of colon cancer Social History (Reviewed 06/19/23 @ 19:32 by VALERIE Liu Smoking Status: Never smoker Tobacco Type: Cigarettes Second Hand Exposure: No; Do You Dip or Chew Tobacco: No; Tobacco Cessation Education Requested by Patient: No Hx Alcohol Use: No Hx Substance Use: No Preferred Language: German Communication Ability: Effective Visual Impairment: No Limitations Hearing Ability: Normal Bus Monitor Required: No Beliefs That Will Affect Care: None Current Living Situation: Alone Current Living Situation Comment: [facility], independent living current occupational status: retired Feels Safe at Home: Yes Safety Concerns Comment: office of aging is visiting her tomorrow regarding getting more help @ home Assistive Devices: Cane, CPAP and Denture - Upper Review of Systems Review of Systems: All systems reviewed & are unremarkable except as noted in HPI & below Physical Exam Physical Exam: General: no acute distress, obese Head: normocephalic, atraumatic Eyes: PERRL, EOM's intact, conjunctiva non-injected, anicteric ENT: normal inspection external ears, nose, mucous membranes moist Neck: supple, trachea midline, non-tender Lungs: clear, no respiratory distress, no wheezing/rhonchi/rales CV: RRR, no murmur, no pretibial edema Abd: normal BS, soft, non-tender Ext: no cyanosis, no calf tenderness Neuro: A&O x 3, no focal deficits noted, normal affect Skin: warm, dry Results & Data Results & Data Vital Signs (Past 12 Hours) Vital Signs Temp Pulse Pulse Resp BP BP Pulse Ox 06/19/23 13:30 88 20 158/112 H 98 06/19/23 12:40 81 20 178/93 H 93 06/19/23 12:19 84 20 186/89 H 93 06/19/23 12:15 85 222/147 H 06/19/23 11:58 88 06/19/23 11:47 37.3 C 95 H 20 222/147 H 95 O2 Del Method 06/19/23 13:30 06/19/23 12:40 06/19/23 12:19 06/19/23 12:15 06/19/23 11:58 06/19/23 11:47 Room Air Laboratory Results Short CBC 06/19/23 Range/Units 12:20 WBC 7.55 (4.8-10.8) K/ul Hgb 13.6 (12.0-16.0) g/dl Hct 39.6 (37.0-47.0) % Plt Count 226 (130-400) K/uL BMP 06/19/23 12:20 Sodium 139 Potassium 3.8 Chloride 100 Carbon Dioxide 28 BUN 12 Creatinine 1.11 Glucose 105 H Calcium 10.1 Liver Function 06/19/23 Range/Units 12:20 Total Bilirubin 0.6 (0.2-1.0) mg/dl AST 28 (13-39) U/L ALT 29 (7-52) U/L Alkaline Phosphatase 58 (34-104) U/L Albumin 4.4 (3.4-5.0) gm/dl Urine 06/19/23 Range/Units 12:08 Urine Color Yellow Urine Appearance Clear (Clear) Urine pH 8.0 H (4.5-7.5) Ur Specific [place] 1.008 (1.000-1.030) Urine Protein 1+ H (Negative) Urine Glucose (UA) Negative (Negative) Diagnostic Findings Chest X-Ray 06/19/23 11:53 SINGLE VIEW CHEST CLINICAL HISTORY: Generalized weakness. FINDINGS: An AP, portable, upright chest radiograph is compared to study dated 06/04/2023 and correlated with chest CT dated 12/09/2013. The cardiomediastinal silhouette is unremarkable noting atherosclerotic calcification of the thoracic aorta. Emphysema and chronic interstitial thickening is similar to previous. There is bibasilar scarring/atelectasis. No airspace consolidation or large pl eural effusion is identified. No pneumothorax is seen. The skeletal structures are osteopenic. The bony thorax is grossly intact. Arthritic change is seen in the shoulders. IMPRESSION: No active disease in the chest. ACT 112: Negative or not required by law. Electronically signed by: Law Cortez M.D. 06/19/2023 12:[address] 06/19/23 11:53 CT SCAN OF THE BRAIN WITHOUT IV CONTRAST CLINICAL HISTORY: Headache. Hypertension. COMPARISON STUDY: CT of the brain dated 06/04/2023. TECHNIQUE: Unenhanced axial CT scan of the brain is performed from the vertex to the skull base. A dose lowering technique was utilized adhering to the principles of ALARA. CT DOSE: 625.8 mGy.cm FINDINGS: Brain parenchyma: There is age-related involutional change noting mild to moderate subcortical and periventricular microangiopathic disease. There is no hemorrhage, mass effect, or evidence of acute territorial ischemia by CT criteria. Mineralization is noted in the basal ganglia. Pelletier-white matter differentiation is preserved. No extra-axial fluid collection is seen. Ventricles, sulci, cisterns: Prominent secondary to involutional change. Intracranial vasculature: There is atherosclerotic calcification of the cavernous carotid arteries. Calvarium: Unremarkable. Sinuses and mastoids: The visualized paranasal sinuses are clear. The mastoid a ir cells are well pneumatized. Orbits: The bony orbits are grossly intact. There are bilateral ocular lens implants. IMPRESSION: There is no hemorrhage, mass effect, or evidence of acute territo rial ischemia by CT criteria. ACT 112: Negative or not required by law. Electronically signed by: Law Cortez M.D. 06/19/2023 12:15 PM ECG Additional Comments: sinus rhythm, rate 93, nonspecific ST changes Supervising Physician Co-Signing Physician Notes I have seen and examined the patient and have discussed the case with the provider above. I agree with the assessment and plan as stated with the following exceptions. 72-year-old female with known history of ADRI and morbid obesity presented to the ER with headache and high blood pressure. CT head is unremarkable today. As noted above she was recently admitted and discharged with blood pressure medication changes. It appears that on follow-up she had received a new blood pressure medication from her primary care doctor which is still in transit. In the meantime her blood pressure has gone up higher and this is likely the cause of her headache. No other symptoms at this time. No evidence of end organ damage is present. On exam she is in no acute distress and has no gross focal neurologic deficits. Cardiac and pulmonary exams are unremarkable. She was unable to swallow the second 500 mg acetaminophen tab and would like something more for her headache. She was given ibuprofen x 1 dose. She is also asking for tizanidine early secondary to her back spasms which she has chronically. She takes tizanidine at home. Repeat blood pressure was 173/85 by me at bedside and she was given additional hydralazine 10 mg IV x 1 dose. Recheck of BP was 132/69 and pulse 74. Continue supportive care for pain symptoms and continue with lisinopril/HCTZ ordered by her primary care physician. DO Marques
[2023-06-19] MEDS ORDERED: ONDANSETRON INJ 2 MG/ML 2 ML VIAL IV PRN (14:59)
[2023-06-19] MEDS ORDERED: hydrOXYzine HCl 25 MG TAB PO PRN (15:03)
[2023-06-19] MEDS ORDERED: GLUCAGON FOR INJ 1 MG VIAL SQ PRN (15:12)
[2023-06-19] MEDS ORDERED: CARBOHYDRATES FOR HYPOGLYCEMIA PO PRN (15:12)
[2023-06-19] MEDS ORDERED: GLUCOSE 40% GEL 15 GM TUBE PO PRN (15:12)
[2023-06-19] MEDS ORDERED: DEXTROSE 50% 50 ML SYRINGE IV PRN (15:12)
[2023-06-19] MEDS ORDERED: GLUCOSE 10 TAB/TUBE PO PRN (15:12)
[2023-06-19] MEDS: INSULIN ASPART PER UNIT CHARGE SC SCH ×2 (16:32→21:36)
[2023-06-19] MEDS ORDERED: hydrALAZINE HCL 20 MG/ML VIAL IV STA (17:26)
[2023-06-19] MEDS ORDERED: IBUPROFEN 600 MG TAB PO STA (17:27)
--- OUTSIDE RECORDS SUMMARY | 2023-06-19 19:29 | External Medical Summary ---
Author Name Unknown Address Unknown Organization [id number]:[facility] [place] - [address] [facility] [address] Laboratory Report Ordering Provider Test Date Status SANTINO SNEED 06/11/2023 15:09:33 Final Observation Date Value Abnormality Reference (Units ) Status Triglyceride 06/11/2023 15:09:33 251 Above high normal <=174 (mg/dL) Final Triglyceride Reference Range s (mg/dL):
<150 Acceptable
150-174 Borderline high
175-499 High
>=500 Very high Cholesterol 06/11/2023 15:09:33 215 Above high normal <200 (mg/dL) Final Total Cholesterol Reference Ranges (mg/dL):
<200 Desirable
200-239 Borderline high
>=240 High HDL 06/11/2023 15:09:33 74 >49 (mg/dL ) Final HDL Cholesterol Reference Ra nges (mg/dL):
>=60 High (Desirable)
<50 Low (Undesirable) For Females
<40 Low (Undesirable) For Males NON-HDL CHOLESTEROL 06/11/2023 15:09:33 141 <=159 (mg/dL) Final Non-HDL Cholesterol Referenc e Range (mg/dL):
<100 Target level for high risk ASCVD patient
<130 Optimal for general population
130-159 Near optimal for general population
160-189 Borderline High
190-219 High
>=220 Very High Performing Location [facility] - [address] [place] [address]
--- OUTSIDE RECORDS SUMMARY | 2023-06-19 19:29 | External Medical Summary | Summary of Care ---
Author Name Unknown Organization [facility] Address [address] [place] [address] Phone [phone] Care Team Providers Care Freelance Interpreter/Translator Name Role Phone Patti Posadas MD Primary Care Provider [phone] Reason for Visit * Reason Onset Date Comments Advice 06/18/2023 Encounter Details Date Type Department Care Team (Late st Contact Info) Description 06/18/2023 Telephone [facility] [address] [place] [address] Patti Posadas MD [address] [place] [address] Advice Allergies Active Allergy Reactions Criticality Noted Date Comments Amoxicillin-Pot Clavulanate Other (Please comment) 01/14/2015 Severe Yeast infection Morphine And Related Unknown 02/19/2003 Codeine makes her vomit Sulfa Antibiotics Edema face/lips/tongue,Oth er (Please comment) High 02/19/2003 Headache documented as of this encounter (statuses as of 06/18/2023) Medications Medication Sig Dispensed Refills Start Date End Date Status PERPHENAZINE 2 MG PO TABS one to two tablets at bedtime 0 4 Active LORAzepam (ATIVAN) 0.5 MG Tablet Take 1 Tablet by mouth at bedtime as needed for Anxiety or Insomnia. 30 Tab 0 6 Active [place]-3 Fatty Acids (FISH OIL) 1200 MG CAPS [...] day as needed. 0 2 Active Nystatin 697054 UNIT/GM External Powder (Nystop)Indications :Candidal skin infection [...] bedtime. 180 Each 3 3 Active Nystatin [id number] UNIT/GM External CreamIndications:Ca ndidal skin infection Apply [...] before bedtime. 100 g 3 3 Active Additional Information Patient not taking.Reported on 06/11/2023 Citalopram Hydrobromide 10 MG Oral Tablet (CeleXA) 0 3 Active Citalopram Hydrobromide 20 MG Oral Tablet (CeleXA) 0 3 Active Vilazodone HCl 20 MG Oral Tablet (Viibryd) 0 3 Active Triamcinolone Acetonide 0.5 % External Cream (Aristocort)Indicat ions:Microsoft Windows Engineer's papule Apply topically to affected area [...] EVERY MORNING 90 Tablet 1 3 Active Vitamin E 180 MG (400 [...] package directions 21 Tablet 0 3 Active metFORMIN HCl 500 MG Oral [...] EVERY MORNING 90 Capsule 1 3 Active Aspirin Low Dose 81 MG Oral Tablet Delayed Release (aspirin enteric coated) TAKE ONE TABLET BY MOUTH EVERY MORNING 90 Tablet 3 3 Active tiZANidine HCl 4 MG Oral Tablet (Zanaflex) Take 1 Tablet by mouth every 8 hours as needed for Muscle spasms. 60 Tablet 2 3 Active Metoprolol Tartrate 25 MG Oral Tablet (Lopressor) Take 1 Tablet by mouth in the morning and 1 Tablet before bedtime. 60 Tablet 5 3 Active Lisinopril-hydroCHL OROthiazide 10-12.5 MG Oral Tablet Take 1 Tablet by mouth in the morning. 30 Tablet 5 4 Active Diclofenac Sodium 75 MG Oral Tablet Delayed Release (Voltaren) Take 1 Tablet by mouth in the morning and 1 Tablet before bedtime. With food.. 60 Tablet 3 3 06/18/19 24 Discontinued Chlorthalidone 50 MG Oral Tablet (Hygroton) TAKE ONE TABLET BY MOUTH EVERY MORNING 90 Tablet 1 3 06/18/19 24 Discontinued documented as of this encounter (statuses as of 06/18/2023) Active Problems Problem Noted Date Diagnosed Date [...] disorder) 03/25/2018 Gastroesophageal reflux disease 03/25/2018 Old SD (myocardial infarction) 03/25/2018 Severe obesity with body [...] as of this encounter (statuses as of 06/18/2023) Resolved Problems Problem Noted Date Diagnosed Date [...] Disorder [facility] Other*[id number] 08/27/2011 01/18/2016 Routine general medical exam ination [...] as of this encounter (statuses as of 06/18/2023) Immunizations Name Administration Dates Next Due COVID-19 [...] encounter Miscellaneous Notes * Telephone Encounter - Patti Posadas MD - 06/18/2023 3:39 PM EST Please see my other encounter of today I resumed only lisinopril 5 mg on last visit due to recent SKI with low BP Taking metoprolol still And lisinopril But from other note, her BP has been very high So I change to lisinopril /HCTZ But not chlorthalidone And encourage her to drink enough water too I told her to be careful on diclofenac due to her kidney Her fu kidney function went back to her baseline, CKD stage 3 now Ok to take gel form But will still hold on oral diclofenac since I am adjusting her BP med * Telephone Encounter - Francesca Alexander LPN - 06/18/2023 2:58 PM EST Inpatient, she was in several day at [facility] Follow up with Dr. Posadas on 06/11 information technology program manager went over to her house BP 139/114 Neha was reviewing her medication list and has some concerns Her tongue was feeling numb: ? Allergies At the hospital they took her off the chlorthalidone but then Dr. Posadas put her back on the medication and Neha looked it up and it stated that you should not take it you have a Sulfa allergy . At the hospital she was taken off the Diclofenac Sodium [address] Posadas place her back on the medication and she is on the max dose of this medication and has kidney disease. Neha is going to tell Elsy is going to hold these 2 medications until addressed by Dr. Posadas. Please advise. Please call patient back with advice documented in this encounter Plan of Treatment Upcoming Encounters Date Type Department Care Team (Late st Contact Info) Description 09/02/2023 12:20 PM EDT Office Visit [facility] [id number] [place] [address] Patti Posadas MD [address] [place] [address] Scheduled Procedures Name Priority Associated Diagnoses Date/Ti me COLONOSCOPY FLEXIBLE PROXIMAL DIAGNOSTIC Recall History of colon polyps Health Maintenance Due Date Last Done Comments Alpha-1 Antitrypsin 12/20/1967 Zoster Vaccines (1 of 2) 12/20/1999 Hepatitis B (1 of 3 - Risk 3-dose series) 2009 Depression, Most Recent Score >= 10 (will fire each visit until score < 10) 08/13/2020 08/12/2020 COLONOSCOPY-EVERY 5 YRS AGES 18-100 01/28/2023 01/28/2018, 01/28/2018, 10/13/2013, Additional history exists Mammogram 02/06/2023 02/06/2022, 01/16, 01/24/2022, Additional history exists COVID-19 Vaccine ( season) 2023 05/02/2021, 08/10/2020, 07/13/2020 CKD PHOS USE SMARTSET 05355 03/12/202302/16, 02/22/2021, 02/10/2020, Additional history exists HbA1c 09/02/2023 03/04/2023, 08/15, 03/12/2022, Additional history exists GFR 12/11/2023 06/11/2023, 02/15, 12/17/2022, Additional history exists B-12 03/04/2024 03/04/2023, 08/15, 02/22/2021, Additional history exists CKD HGB USE SMARTSET 20410 03/04/202403/04, 12/17/2022, 12/17/2022, Additional history exists Diabetic Foot Exam 03/04/2024 03/04/2023, 0 02/07/2021, 02/10/2020, Additional history exists TSH 03/04/2024 03/04/2023, 08/15, 03/12/2022, Additional history exists Albumin/Creatinine Ratio 06/11/2024 023, 08/28/2022, 08/14/2021, Additional history exists Diabetic Eye Exam 06/11/2024 06/11/2023, , 08/08/2021, Additional history exists O2 ASSESSMENT COMPLETED IN PAST YEAR FOR COPD 06/11/2024 06/11/2023 Lipid Panel 06/11/2028 06/11/2023, 02/16, 02/22/2021, Additional history exists DTaP,Tdap,and Td Vaccines (4 - Td or Tdap) 08/31/2030 08/31/2020, 05/19/2010, 07/20/2003 Hepatitis C Screening Completed 11/15/2014 Pneumococcal Vaccine: 65+ Years Completed 08/27/2016, 08/16/2014, 05/08/2011, Additional history exists LUNG CANCER SCREENING - USE SMARTSET [id number] Completed 09/26/2021, 09/20/2020, 09/18/2017 (Declined) Influenza Vaccine [...] filedocumented as of this encounter Care Teams Freelance Interpreter/Translator Relationship Specialty Start Date End Date Patti Posadas MD [address] [place] [address] PCP - General Internal Medicine 01/18/22 documented as of this encounter
--- OUTSIDE RECORDS SUMMARY | 2023-06-19 19:29 | External Medical Summary | Summary of Care ---
Author Name Unknown Organization [facility] Address [address] [place] [address] Phone [phone] Care Team Providers Care Line Out Man Name Role Phone Patti Posadas MD Primary Care Provider [phone] Reason for Visit * Reason Onset Date Comments Health Maintenance 06/04/2023 Encounter Details Date Type Department Care Team (Late st Contact Info) Description 06/04/2023 Telephone [facility] [address] [place] [address] Patti Posadas MD [address] [place] [address] Health Maintenance Allergies Active Allergy Reactions Criticality Noted Date Comments Amoxicillin-Pot Clavulanate Other (Please comment) 01/14/2015 Severe Yeast infection Morphine And Related Unknown 02/19/2003 Codeine makes her vomit Sulfa Antibiotics Edema face/lips/tongue,Oth er (Please comment) High 02/19/2003 Headache documented as of this encounter (statuses as of 06/04/2023) Medications Medication Sig Dispensed Refills Start Date End Date Status PERPHENAZINE 2 MG PO TABS one to two tablets at bedtime 0 02/09/2014 Active LORAzepam (ATIVAN) 0.5 MG Tablet Take 1 Tablet by mouth at bedtime as needed for Anxiety or Insomnia. 30 Tab 0 08/22/2015 Active Ryegate-3 Fatty Acids (FISH OIL) 1200 MG CAPS [...] day as needed. 0 01/04/2022 Active Nystatin 914352 UNIT/GM External Powder (Nystop)Indications: Candidal skin infection [...] bedtime. 180 Each 3 07/03/2022 Active Nystatin 884385 UNIT/GM External CreamIndications:Can didal skin infection Apply [...] Triamcinolone Acetonide 0.5 % External Cream (Aristocort)Indicati ons:Leather Stamper's papule Apply topically to affected area 2 [...] the morning. 90 Tablet 3 03/04/2023 Active Vitamin E 180 [...] EVERY MORNING 90 Tablet 3 05/20/2023 Active tiZANidine HCl 4 MG Oral Tablet (Zanaflex) Take 1 Tablet by mouth every 8 hours as needed for Muscle spasms. 60 Tablet 2 05/30/2023 Active documented as of this encounter (statuses as of 06/04/2023) Active Problems Problem Noted Date Diagnosed Date [...] disorder) 03/25/2018 Gastroesophageal reflux disease 03/25/2018 Old [place] (myocardial infarction) 03/25/2018 Severe obesity with body [...] as of this encounter (statuses as of 06/04/2023) Resolved Problems Problem Noted Date Diagnosed Date [...] and 6 MWT Genetic Sleep Disorder Resea [facility] Other*[id number] 08/27/2011 01/18/2016 Routine general medical exam ination at a health care facility 08/09/2011 12/20/2016 Overview: 3/14 likely COPD per pulm consult, although PFTs [...] as of this encounter (statuses as of 06/04/2023) Immunizations Name Administration Dates Next Due COVID-19 [...] Influenza, Split, I IV3, With Preserve, Inj 02/16/2015,02/16/2014,09/12/2012,110 12/2010,05/19/2010,07/01/2009,04/29/20 07 TDAP (age 10 and older)(Boostrix) [...] encounter Miscellaneous Notes * Telephone Encounter - Alyssa Jean-BaptisteRAMSES - 06/04/2023 1:33 PM EST Care Gaps Comprehensive Care Outreach Last Office/Telemedicine Visit: 05/30/2023 (in office), 12/10/2019 (telemedicine) Next Office Visit: 09/02/2023 Hemoglobin AIC Results: Lab Results Component Value Date/Time HEMOGLOBIN A1C - [facility] 5.7 (H) 03/04/2023 01:02 PM HEMOGLOBIN A1C - [facility] 6.1 (H) 08/28/2022 01:36 PM HEMOGLOBIN A1C - [facility] 5.9 (H) 03/12/2022 09:17 AM HEMOGLOBIN A1C - [facility] 5.5 02/10/2020 09:24 AM HEMOGLOBIN A1C - [facility] 6.1 (H) 04/01/2019 02:25 PM HEMOGLOBIN A1C - [facility] 6.4 (H) 09/23/2018 03:46 PM Reviewed Health Maintenance below: Health Maintenance Topic Date Due Alpha-1 Antitrypsin Never done Zoster Vaccines (1 of 2) Never done Hepatitis B (1 of 3 - Risk 3-dose series) Never done Depression, Most Recent Score >= 10 (will fire each visit until score < 10) 08/13/2020 Diabetic Eye Exam 08/08/2022 COLONOSCOPY-EVERY 5 YRS AGES 18-100 01/28/2023 Mammogram 02/06/2023 COVID-19 Vaccine ( season) 2023 CKD PHOS USE SMARTSET 66867 03/12/2023 Albumin/Creatinine Ratio 08/29/2023 HbA1c 09/02/2023 GFR 09/02/2023 Labs Mamm Colon eye Care Gap Outreach Action Taken: Left message documented in this encounter Plan of Treatment Upcoming Encounters Date Type Department Care Team (Late st Contact Info) Description 09/02/2023 12:20 PM EDT Office Visit [facility] [address] [place] [address] Patti Posadas MD [address] [place] [address] Scheduled Procedures Name Priority Associated [...] 05/02/2021, 08/10/2020, 07/13/2020 CKD PHOS USE SMARTSET 88483 03/12/2023 09/2 11/2021, 02/22/2021, 02/10/2020, Additional history exists Albumin/Creatinine Ratio 08/29/2023 023, 08/14/2021, 08/12/2020, Additional history exists GFR 09/02/2023 03/04/2023, 07/0 08/2022, 08/28/2022, Additional history exists HbA1c 09/02/2023 03/04/2023, 08/15, 03/12/2022, Additional history exists B-12 03/04/2024 03/04/2023, 08/15, 02/22/2021, Additional history exists CKD HGB USE SMARTSET 45355 03/04/202403/04, 12/17/2022, 12/17/2022, Additional history exists Diabetic [...] exists LUNG CANCER SCREENING - USE SMARTSET 93817 Completed 09/26/2021, 09/20/2020, 09/18/2017 (Declined) Influenza Vaccine [...] filedocumented as of this encounter Care Teams Line Out Man Relationship Specialty Start Date End Date Patti Posdaas MD [address] [place] [address] PCP - General Internal Medicine 01/18/22 documented as of this encounter
--- OUTSIDE RECORDS SUMMARY | 2023-06-19 19:29 | External Medical Summary | Summary of Care ---
Author Name Unknown Organization [facility] Address [address] [place] [address] Phone [phone] Care Team Providers Care Lockstitch Binder Name Role Phone Patti Posadas MD Primary Care Provider [phone] Reason for Visit * Reason Onset Date Comments Advice 06/18/2023 Encounter Details Date Type Department Care Team (Late st Contact Info) Description 06/18/2023 Telephone [facility] [address] [place] [address] Patti Posadas MD [address] [place] [address] Advice Allergies Active Allergy Reactions [...] or Insomnia. 30 Tab 0 6 Active Simms-3 Fatty Acids (FISH OIL) 1200 MG CAPS [...] day as needed. 0 2 Active Nystatin 312183 UNIT/GM External Powder (Nystop)Indications :Candidal skin infection [...] bedtime. 180 Each 3 3 Active Nystatin 089689 UNIT/GM External CreamIndications:Ca ndidal skin infection Apply [...] Triamcinolone Acetonide 0.5 % External Cream (Aristocort)Indicat ions:Fitness Professional's papule Apply topically to affected area 2 [...] With food.. 60 Tablet 3 3 Active Additional Information Patient not taking.Reported on 06/11/2023 metFORMIN HCl 500 MG Oral Tablet (Glucophage) [...] EVERY MORNING 90 Capsule 1 3 Active Chlorthalidone 50 MG Oral Tablet (Hygroton) TAKE ONE TABLET BY MOUTH EVERY MORNING 90 Tablet 1 3 Active Additional Information Patient not taking.Reported on 06/11/2023 Aspirin Low Dose 81 MG Oral Tablet [...] the morning. 30 Tablet 5 4 Active Lisinopril 5 MG Oral Tablet (Prinivil) Take 1 Tablet by mouth in the morning. 30 Tablet 5 3 06/18/19 24 Discontinued documented as of [...] disorder) 03/25/2018 Gastroesophageal reflux disease 03/25/2018 Old [place] (myocardial infarction) 03/25/2018 Severe obesity with body [...] and 6 MWT Genetic Sleep Disorder Resea [facility] Other*[id number] 08/27/2011 01/18/2016 Routine general medical exam ination [...] Encounter - Patti Posadas MD - 06/18/2023 12:57 PM EST Pt's BP meds were discontinued due to low BP and ADI last month Currently taking metoprolol And I resumed low dose lisinopril 5 mg only Stop lisinopril 5 mg Will change to lisinopril /HCTZ 10/12.5 mg tabs daily from today ( even though pt took lisinopril 5mg today ) Please start it shravan and update me on mitzy or Fri on BP numbers please ( I didn't resume chlorthalidone ) * Telephone Encounter - Moon Herrera OSA - 06/18/2023 11:41 AM EST Pt calling with BP's 06/12/23 146/100 06/13/23 150/84 06/14/23 151/95 06/15/23 169/68 06/16/23 175/95 documented in this encounter Plan of Treatment Upcoming Encounters Date Type Department Care Team (Late st Contact Info) Description 09/02/2023 12:20 PM EDT Office Visit [facility] [address] [place] [address] Patti Posadas MD [address] [place] [address] Scheduled Procedures Name Priority Associated [...] 05/02/2021, 08/10/2020, 07/13/2020 CKD PHOS USE SMARTSET 31919 03/12/2023 092 11/2021, 02/22/2021, 02/10/2020, Additional history exists HbA1c 09/02/2023 03/04/2023, 08/15, 03/12/2022, Additional history exists GFR 12/11/2023 06/11/2023, 02/15, 12/17/2022, Additional history exists B-12 03/04/2024 03/04/2023, 08/15, 02/22/2021, Additional history exists CKD HGB USE SMARTSET 24233 03/04/202403/04, 12/17/2022, 12/17/2022, Additional history exists Diabetic [...] exists LUNG CANCER SCREENING - USE SMARTSET 53056 Completed 09/26/2021, 09/20/2020, 09/18/2017 (Declined) Influenza Vaccine [...] filedocumented as of this encounter Care Teams Lockstitch Binder Relationship Specialty Start Date End Date Patti Posadas MD [address] [place] [id number] PCP - General Internal Medicine 01/18/22 documented as of this encounter
--- OUTSIDE RECORDS SUMMARY | 2023-06-19 19:29 | External Medical Summary | Summary of Care ---
Author Name Unknown Organization [facility] Address [address] [place] [address] Phone [phone] Care Team Providers Care Contact Centre Supervisor Name Role Phone Patti Posadas MD Primary Care Provider [phone] Reason for Visit * Reason Comments Hospital Follow-Up Pt was at Hosp due t o BP being all over the place. Encounter Details Date Type Department Care Team (Late st Contact Info) Description 06/11/2023 2:00 PM EST Office Visit [facility] [address] [place] [address] Patti Posadas MD [address] [place] [address] Type 2 diabetes mellitus with stage 3a chronic kidney disease, without long-term current use of insulin ([facility])*; HTN, GOAL BELOW 140/90; Hypotension, unspecified hypotension type; Old WI (myocardial infarction); Chronic kidney disease, stage 3a ([facility]); Type 2 diabetes mellitus with hemoglobin A1c goal of less than 7.0% ([facility]) Allergies Active Allergy Reactions Criticality Noted Date Comments Amoxicillin-Pot Clavulanate Other (Please comment) 01/14/2015 Severe Yeast infection Morphine And Related Unknown 02/19/2003 Codeine makes her vomit Sulfa Antibiotics Edema face/lips/tongue,Oth er (Please comment) High 02/19/2003 Headache documented as of this encounter (statuses as of 06/13/2023) Medications Medication Sig Dispensed Refills Start Date End Date Status PERPHENAZINE 2 MG PO TABS one to two tablets at bedtime 0 4 Active LORAzepam (ATIVAN) 0.5 MG Tablet Take 1 Tablet by mouth at bedtime as needed for Anxiety or Insomnia. 30 Tab 0 6 Active Crivitz-3 Fatty Acids (FISH OIL) 1200 MG CAPS Take 1 Cap by mouth daily. 0 Active doxepin (SINEQUAN) 25 MG Capsule Take 1 Cap by mouth at bedtime. 90 Cap 3 7 Active traZODone (DESYREL) 50 MG Tablet Take 1 Tablet by mouth at bedtime. 30 Tab 5 8 Active Ipratropium-Albute rol 20-100 MCG/ACT Inhalation Aerosol Solution (Combivent Respimat) (1) inhalation 4 times daily - please note change 18 g 3 2 Active Additional Information Patient not taking.Reported on 03/04/2023 hydrOXYzine HCl 25 MG Oral Tablet Take 1 Tablet by mouth 2 times a day as needed. 0 2 Active Nystatin 311858 UNIT/GM External Powder (Nystop)Indication s:Candidal skin infection Apply topically to affected area 3 times a day . 30 g 3 2 Active Depend Underwear X-Large Use 3-4 depends per day 130 Each 11 2 Active Albuterol Sulfate (2.5 MG/3ML) 0.083% Inhalation Nebulization Solution (Proventil)Indicat ions:COPD, mild (HCC),Centrilobula r emphysema (HCC),Hypoxemia INHALE 1 VIAL VIA NEBULIZER EVERY 4 HOURS NEEDED FOR WHEEZING OR SHORTNESS OF BREATHE (CHEST PRESSURE) 300 mL 5 2 Active CPAP every night at bedtime. 0 Active Fluticasone Propionate 50 MCG/ACT Nasal Suspension (Flonase)Indicatio ns:Chronic rhinitis INSTILL 2 SPRAYS INTO EACH NOSTRIL DAILY 48 g 3 3 Active Fluticasone-Salmet sadia 250-50 MCG/ACT Inhalation Aerosol Powder Breath Activated (Advair Diskus) Inhale 1 Puff by mouth in the morning and 1 Puff before bedtime. 180 Each 3 3 Active Nystatin 849321 UNIT/GM External CreamIndications:C andidal skin infection Apply topically to affected area [...] Active Triamcinolone Acetonide 0.5 % External Cream (Aristocort)Indica tions:[employer] Hand's papule Apply topically to affected area 2 times a day. To affected area. 60 g 1 3 Active Levothyroxine Sodium 125 MCG Oral Tablet (Levoxyl)Indicatio ns:Acquired hypothyroidism TAKE ONE TABLET BY MOUTH EVERY DAY AT LEAST 30 MINUTES PRIOR TO BREAKFAST OR OTHER MEDICATIONS 90 Tablet 1 3 Active Montelukast Sodium 10 MG Oral Tablet (Singulair)Indicat ions:Allergic rhinitis due to other allergic trigger, unspecified seasonality TAKE ONE TABLET BY MOUTH EVERY MORNING 90 Tablet 1 3 Active Cetirizine HCl 10 MG Oral Tablet (ZyrTEC) TAKE ONE TABLET BY MOUTH EVERY MORNING 90 Tablet 1 3 Active Atorvastatin Calcium 10 MG Oral Tablet (Lipitor)Indicatio ns:Dyslipidemia TAKE ONE TABLET BY MOUTH EVERY MORNING [...] Muscle spasms. 60 Tablet 2 3 Active Lisinopril 5 MG Oral Tablet (Prinivil) Take 1 Tablet by mouth in the morning. 30 Tablet 5 3 Active Metoprolol Tartrate 25 MG Oral Tablet (Lopressor) Take 1 Tablet by mouth in the morning and 1 Tablet before bedtime. 60 Tablet 5 3 Active Lisinopril 5 MG Oral Tablet (Prinivil) Take 1 Tablet by mouth in the morning. 90 Tablet 3 3 023 Discontinued(Re fill) Metoprolol Succinate ER 50 MG Oral Tablet Extended Release 24 Hour (toPROL XL)Indications:HTN , goal below 140/90 TAKE ONE TABLET BY MOUTH EVERY MORNING 90 Tablet 1 3 023 Discontinued documented as of this encounter (statuses as of 06/13/2023) Active Problems Problem Noted Date Diagnosed Date [...] abuse 08/17/2020 Periodic limb movement disorder (PLMD) Need for prophylactic vaccin ation and inoculation [...] as of this encounter (statuses as of 06/13/2023) Resolved Problems Problem Noted Date Diagnosed Date [...] and 6 MWT Genetic Sleep Disorder Resea [facility] Other*[id number] 08/27/2011 01/18/2016 Routine general medical exam ination at a health care facility 08/09/2011 12/20/2016 Overview: 3 likely COPD per pulm consult, although PFTs [...] as of this encounter (statuses as of 06/13/2023) Immunizations Name Administration Dates Next Due COVID-19 [...] Split, I IV3, With Preserve, Inj 02/16/2015,02/16/2014,09/12/2012,12/2010,05/19/2010,07/01/2009,04/29/20 07,03/21/2004,04/07/2003 TDAP (age 10 and older)(Boostrix) 08/31/2020 TDAP (age 11 and older)(Adacel) 05/19/2010,07/20 documented as of this encounter Social History Tobacco Use Types Packs/Day Years Used Date Smoking Tobacco: Former Cigarettes 2 30 Q uit: 07/29/2011 Passive Smoke Exposure: Never Smokeless Tobacco: Never Tobacco Cessation:Counseling Given: Not Answered Alcohol Use Standard Drinks/Week Comments No 0 [...] Sign Reading Time Taken Comments Blood Pressure 145/95 06/11/2023 2:23 PM EST Pulse 88 06/11/2023 2:23 PM EST Temperature 36.6 C (97.8 F) 06/11/2023 2:23 PM ES T Respiratory Rate 20 06/11/2023 2:23 PM EST Oxygen Saturation 97% 06/11/2023 2:23 PM EST Inhaled Oxygen Concentration - - Weight 87.3 kg (192 lb 8 oz) 06/11/2023 2:23 PM EST Height - - Body Mass Index 37.6 12/24/2022 10:23 AM EDT documented in this encounter Patient Instructions * Patient Instructions* Patti Posadas MD - 06/11/2023 2:43 PM EST For HTN, Take metoprolol 25 mg 1 tab twice daily And resuming lisinopril 5 mg daily And check BP and update me next week documented in this encounter Progress Notes * Minnie Evans CCMA - 06/13/2023 10:05 AM EST A Diabetic Telemed Eye image was taken and requires your interpretation for Dr posadas. Please check your inbasket for image. Patient prefers to be seen at [facility] if a follow-up appointment is needed. * Patti Posadas MD - 06/11/2023 2:31 PM EST Subjective Elsy Palmer is a 72 year old female. Chief Complaint Patient presents with Hospital Follow-Up Pt was at Hosp due to BP being all over the place. HPI: Here for hospital f/u Admission Jun 04 Discharge Jun 10 Dx : slurred speech due to hypotension , multidrug , ADI SBP was down to 60s ADI on CKD , improved on discharge Previously taking toprol 50 daily , lisinopril 5 daily and chlorthalidon But poor oral intake, occ little fluid intake, irregular eating Known CAD, hx of WI, CKD , HTN Med - down to metoprolol 12.5 bid only BP runs high now [place] + Will increase metoprolol 25 mg bid And resuming lisinopril 5 mg Nurse can check her BP daily Will update me in one week Type 2 DM, controlled, metformin Eye exam today PMH: Patient Active Problem List Diagnosis Code Insomnia G47.00 DDD (degenerative disc disease), lumbar M51.36 HTN, GOAL BELOW 140/90 I10 Dyslipidemia, goal LDL below 100 E78.5 Centrilobular emphysema ([facility]) J43.2 Acquired hypothyroidism E03.9 Mild persistent asthma without complication J45.30 Type 2 diabetes mellitus with hemoglobin A1c goal of less than 7.0% ([facility]) E11.9 Severe obesity with body mass index (BMI) of 35.0 to 39.9 with serious comorbidity ([facility]) E66.01 GERARDO (generalized anxiety disorder) F41.1 Gastroesophageal reflux disease K21.9 Old WI (myocardial infarction) I25.2 Periodic limb movement disorder (PLMD) G47.61 Need for prophylactic vaccination and inoculation against influenza Z23 Nocturnal hypoxemia G47.34 History of tobacco abuse Z87.891 Major depressive disorder, recurrent, unspecified ([facility]) F33.9 Benign hypertension with stage 3a chronic kidney disease (HCC) I12.9, N18.31 Type 2 diabetes mellitus with stage 3a chronic kidney disease (HCC) E11.22, N18.31 Chronic kidney disease, stage 3a (HCC) N18.31 COPD, group B, by GOLD 2017 classification ([facility]) J44.9 DDD (degenerative disc disease), thoracic M51.34 Current Outpatient Medications Medication Sig Dispense Refill PERPHENAZINE 2 MG PO TABS one to two tablets at bedtime Crivitz-3 Fatty Acids (FISH OIL) 1200 MG CAPS Take 1 Cap by mouth daily. doxepin (SINEQUAN) 25 MG Capsule Take 1 Cap by mouth at bedtime. 90 Cap 3 traZODone (DESYREL) 50 MG Tablet Take 1 Tablet by mouth at bedtime. 30 Tab 5 hydrOXYzine HCl 25 MG Oral Tablet Take 1 Tablet by mouth 2 times a day as needed. Nystatin 014820 UNIT/GM External Powder (Nystop) Apply topically to affected area 3 times a day . 30 g 3 Depend Underwear X-Large Use 3-4 depends per day 130 Each 11 Albuterol Sulfate (2.5 MG/3ML) 0.083% Inhalation Nebulization Solution (Proventil) INHALE 1 VIAL VIA NEBULIZER EVERY 4 HOURS NEEDED FOR WHEEZING OR SHORTNESS OF BREATHE (CHEST PRESSURE) 300 mL 5 CPAP every night at bedtime. Fluticasone-Salmeterol 250-50 MCG/ACT Inhalation Aerosol Powder Breath Activated (Advair Diskus) Inhale 1 Puff by mouth in the morning and 1 Puff before bedtime. 180 Each 3 Nystatin 454044 UNIT/GM External Cream Apply topically to affected area 2 times a day. for two weeks. 60 g 1 Garlic 1000 MG Oral Capsule Take 1 Capsule by mouth in the morning. 90 Capsule 1 Olopatadine HCl 0.2 % Ophthalmic Solution Instill 1 Drop into eye in the morning. 15 mL 3 Citalopram Hydrobromide 10 MG Oral Tablet [...] BY MOUTH EVERY MORNING 90 Tablet 1 Vitamin E 180 MG (400 UNIT) Oral [...] Dosepack) follow package directions 21 Tablet 0 metFORMIN HCl 500 MG Oral Tablet (Glucophage) TAKE ONE TABLET BY MOUTH TWICE DAILY with morning andevening meals 180 Tablet 1 Famotidine 20 MG Oral Tablet (Pepcid) TAKE ONE TABLET BY MOUTH EVERY MORNING and TAKE ONE TABLET ATBEDTIME 180 Tablet 1 Turmeric Curcumin 500 MG Oral Capsule TAKE ONE CAPSULE BY MOUTH EVERY MORNING 90 Capsule 1 Aspirin Low Dose 81 MG Oral Tablet Delayed Release (aspirin enteric coated) TAKE ONE TABLET BY MOUTH EVERY MORNING 90 Tablet 3 tiZANidine HCl 4 MG Oral Tablet (Zanaflex) Take 1 Tablet by mouth every 8 hours as needed for Muscle spasms. 60 Tablet 2 Lisinopril 5 MG Oral Tablet (Prinivil) Take 1 Tablet by mouth in the morning. 30 Tablet 5 Metoprolol Tartrate 25 MG Oral Tablet (Lopressor) Take 1 Tablet by mouth in the morning and 1 Tablet before bedtime. 60 Tablet 5 LORAzepam (ATIVAN) 0.5 MG Tablet Take 1 Tablet by mouth at bedtime as needed for Anxiety or Insomnia. 30 Tab 0 Ipratropium-Albuterol 20-100 MCG/ACT Inhalation Aerosol Solution (Combivent Respimat) (1) inhalation 4 times daily - please note change (Patient not taking: Reported on 03/04/2023) 18 g 3 Fluticasone Propionate 50 MCG/ACT Nasal Suspension (Flonase) INSTILL 2 SPRAYS INTO EACH NOSTRIL DAILY 48 g 3 Diclofenac Sodium 1 % External Gel (Voltaren) Apply 1 g topically to affected area in the morning and 1 g before bedtime. (Patient not taking: Reported on 06/11/2023) 100 g 3 Vilazodone HCl 20 MG Oral Tablet (Viibryd) (Patient not taking: Reported on 03/04/2023) Diclofenac Sodium 75 MG Oral Tablet Delayed Release (Voltaren) Take 1 Tablet by mouth in the morning and 1 Tablet before bedtime. With food.. (Patient not taking: Reported on 06/11/2023) 60 Tablet 3 Chlorthalidone 50 MG Oral Tablet (Hygroton) TAKE ONE TABLET BY MOUTH EVERY MORNING (Patient not taking: Reported on 06/11/2023) 90 Tablet 1 No current facility-administered medications for this visit. Past Medical History: Diagnosis Date Anxiety state Benign neoplasm of colon 08/18/2009 polyps- shows adenomatous tissue& diverticulosis repeat 3 yrs COPD, mild (HCC) 01/29/2017 Diverticulosis of colon (without mention of hemorrhage) 10/13/2013 sigmoid colon Dyslipidemia, goal LDL below 100 07/04/2009 HTN, goal below 140/90 04/22/2009 Hypothyroid Insomnia, unspecified Kidney disease, chronic, stage III (GFR 30-59 ml/min) ([facility]) 08/30/2014 Per CKD protocol #1 Old myocardial infarct 1996 ??? Pre-diabetes Sleep apnea, obstructive Tobacco use disorder 05/22/2004 Past Surgical History: Procedure Laterality Date BREAST BIOPSY Right 02/20/2022 COLONOSCOPY W/ LESION REMOVAL, SNARE 08/18/09 polyps- shows adenomatous tissue& diverticulosis repeat 3 yrs COLONOSCOPY, DIAGNOSTIC (RECTUM) 10/13/2013 hyperplastic polyps, diverticulosis, repeat 3 yrs/COLONOSCOPY FLEXIBLE PROXIMAL DIAGNOSTIC performed by Ines Bailey DO at [facility] [address] COLONOSCOPY, DIAGNOSTIC (RECTUM) 01/28/2018 diverticulosis, repeat 5 yrs/COLONOSCOPY FLEXIBLE PROXIMAL DIAGNOSTIC performed by Ines Bailey DO at [facility] [address] DOBUTAMINE STRESS ECHO 05/20 equivocal stress findings; negative stress echo findings LEFT HEART CATHETERIZATION [address] [facility], dr roca REMOVAL OF APPENDIX 15 y/o REMOVE CATARACT, INSERT LENS PROSTH 1992, 1995 Rt/Lt REPAIR INITIAL INGUINAL HERNIA REDUCIBLE AGE 4 OR MORE Left 08/05/2017 08/05/2017 repair of left inguinal hernia - [facility] Dr. 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 Negative for activity change, appetite change, chills, diaphoresis, fever and unexpected weight change. HENT: Negative for congestion and ear pain. Eyes: Negative for pain and visual disturbance. Respiratory: Negative for cough, chest tightness, shortness of breath and wheezing. Cardiovascular: Negative for chest pain, palpitations and leg swelling. Gastrointestinal: Negative for abdominal distention, abdominal pain, nausea and vomiting. Endocrine: Negative. Musculoskeletal: Positive for arthralgias, back pain and gait problem. Neurological: Positive for headaches. Negative for dizziness, weakness and light-headedness. Psychiatric/Behavioral: Positive for sleep disturbance. Negative for agitation and behavioral problems. The patient is nervous/anxious. Objective BP 145/95 (BP Site: Left Arm, BP Position: Sitting, BP Cuff Size: Regular) | Pulse 88 | Temp 36.6 C (97.8 F) (Tympanic) | Resp 20 | Wt 87.3 kg (192 lb 8 oz) | SpO2 97% | BMI 37.60 kg/m | BSA 1.92 m Physical Exam Constitutional: General: She is not in acute distress. Appearance: Normal appearance. She is obese. She is not ill-appearing, toxic- appearing or diaphoretic. HENT: Head: Normocephalic and atraumatic. Nose: Nose normal. Eyes: Extraocular Movements: Extraocular movements intact. Cardiovascular: Rate and Rhythm: Normal rate and regular rhythm. Pulses: Normal pulses. Heart sounds: Normal heart sounds. No murmur heard. Pulmonary: Effort: Pulmonary effort is normal. No respiratory distress. Breath sounds: Normal breath sounds. No stridor. No wheezing, rhonchi or rales. Chest: Chest wall: No tenderness. Abdominal: Palpations: Abdomen is soft. Musculoskeletal: Right lower leg: No edema. Left lower leg: No edema. Skin: Findings: Bruising (from blood test , lt forearm) present. Neurological: General: No focal deficit present. Mental Status: She is alert and oriented to person, place, and time. Cranial Nerves: No cranial nerve deficit. Psychiatric: Mood and Affect: Mood normal. Behavior: Behavior normal. ASSESSMENT/PLAN: HTN, GOAL BELOW 140/90 (Primary) Hypotension, unspecified hypotension type Old WI (myocardial infarction) Type 2 diabetes mellitus with stage 3a chronic kidney disease, without long-term current use of insulin (HCC) - TELEMEDICINE DIABETIC EYE Chronic kidney disease, stage 3a (HCC) - BASIC METABOLIC PANEL; Future; Expected date: 06/11/2023 Other orders - Lisinopril 5 MG Oral Tablet (Prinivil); Take 1 Tablet by mouth in the morning. - Metoprolol Tartrate 25 MG Oral Tablet (Lopressor); Take 1 Tablet by mouth in the morning and 1 Tablet before bedtime. Patient Instructions For HTN, Take metoprolol 25 mg 1 tab twice daily And resuming lisinopril 5 mg daily And check BP and update me next week Patti Posadas MD documented in this encounter Nursing Notes * Roxanna Wang LPN - 06/11/2023 2:22 PM EST Chief Complaint Patient presents with Hospital Follow-Up Pt was at Hosp due to BP being all over the place. documented in this encounter Plan of Treatment Upcoming Encounters Date Type Department Care Team (Late st Contact Info) Description 09/02/2023 12:20 PM EDT Office Visit [facility] [address] [place] [address] Patti Posadas MD [address] [place] [address] Scheduled Procedures Name Priority Associated Diagnoses Date/Ti [...] 05/02/2021, 08/10/2020, 07/13/2020 CKD PHOS USE SMARTSET 58614 03/12/202302/16, 02/22/2021, 02/10/2020, Additional history exists HbA1c 09/02/2023 03/04/2023, 08/15, 03/12/2022, Additional history exists GFR 12/11/2023 06/11/2023, 02/15, 12/17/2022, Additional history exists B-12 03/04/2024 03/04/2023, 08/15, 02/22/2021, Additional history exists CKD HGB USE SMARTSET 08274 03/04/202403/04, 12/17/2022, 12/17/2022, Additional history exists Diabetic Foot Exam 03/04/2024 03/04/2023, 0 02/07/2021, 02/10/2020, Additional history exists TSH 03/04/2024 03/04/2023, 08/15, 03/12/2022, Additional history exists Albumin/Creatinine Ratio 06/11/2024 023, 08/28/2022, 08/14/2021, Additional history exists Diabetic Eye Exam 06/11/2024 06/11/2023, , 08/08/2021, Additional history exists O2 ASSESSMENT COMPLETED IN PAST YEAR FOR COPD 06/11/2024 06/11/2023 Lipid Panel 06/11/2028 06/11/2023, 0911/2021, 02/22/2021, Additional history exists DTaP,Tdap,and Td Vaccines (4 - Td or Tdap) 08/31/2030 08/31/2020, 05/19/2010, 07/20/2003 Hepatitis C Screening Completed 11/15/2014 Pneumococcal Vaccine: 65+ Years Completed 08/27/2016, 08/16/2014, 05/08/2011, Additional history exists LUNG CANCER SCREENING - USE SMARTSET 57776 Completed 09/26/2021, 09/20/2020, 09/18/2017 (Declined) Influenza Vaccine [...] Not on filedocumented as of this encounter Procedures Procedure Name Priority Date/Time Associated Diagnosis Comments TELEMEDICINE DIABETIC EYE Routine 06/11/2023 Type 2 diabetes mellitus with stage 3a chronic kidney disease, without long-term current use of insulin (HCC) documented in this encounter Results * (ABNORMAL) BASIC METABOLIC PANEL (06/11/2023 3:09 PM EST) BUN 11 6 - 20 mg/dL 06/11/2023 10:44 PM EST [facility] Creatinine 1.2(H) 0.5 - 1.0 mg/dL 06/11/2023 10:44 PM EST [facility] Estimated Glomerular Filtration Rate 48(L) >=60 mL/min 06/11/2023 10:44 PM EST [facility] Comment:eGFR is calculated b ased on the CKD-EPI 2020 equation Sodium 143 135 - 146 mmol/L 06/11/2023 10:44 PM EST [facility] Potassium 4.2 3.5 - 5.1 mmol/L 06/11/2023 10:44 PM EST [facility] Chloride 99 98 - 107 mmol/L 06/11/2023 10:44 PM EST [facility] CO2 29 22 - 32 mmol/L 06/11/2023 10:44 PM EST [facility] Anion Gap 15 7 - 15 mmol/L 06/11/2023 10:44 PM EST [facility] Glucose 127(H) 70 - 120 mg/dL 06/11/2023 10:44 PM EST [facility] Calcium 10.5(H) 8.4 - 10.2 mg/dL 06/11/2023 10:44 PM EST [facility] Blood Venous blood specimen / Unknown Venipuncture / Unknown 06/11/2023 3:09 PM EST 06/11/2023 3:12 PM EST Patti Posadas MD LAB BLOOD ORDERABLES [facility] [address] [place] [address] * TELEMEDICINE DIABETIC EYE (06/11/2023) 06/11/2023 Patti Posadas MD DIGITAL PHOTOGRAPHY documented in this encounter Visit Diagnoses Diagnosis Type 2 diabetes mellitus with stage 3a chronic kidney disease, without long-term current use of insulin (HCC)- Primary HTN, GOAL BELOW 140/90 Unspecified essential hypertension Hypotension, unspecified hypotension type Old WI (myocardial infarction) Old myocardial infarction Chronic kidney disease, stage 3a (HCC) Type 2 diabetes mellitus with hemoglobin A1c goal of less than 7.0% (HCC) documented in this encounter Care Teams Contact Centre Supervisor Relationship Specialty Start Date End Date Patti Posadas MD [address] [place] [phone] PCP - General Internal Medicine 01/18/22 documented as of this encounter"
--- OUTSIDE RECORDS SUMMARY | 2023-06-19 19:29 | External Medical Summary | Summary of Care ---
Author Name Unknown Organization [facility] Address [address] [place] [address] Phone [phone] Care Team Providers Care Animal Rescuer Name Role Phone Patti Posadas MD Primary Care Provider [phone] Reason for Visit * Reason Comments Outpatient Testing Encounter Details Date Type Department Care Team (Late st Contact Info) Description 06/11/2023 3:10 PM EST Laboratory Laboratory, [facility] [address] [place] [address] [facility] [address] [place] [address] Screening for nephropathy; Encounter for long-term (current) use of other medications; Chronic kidney disease, stage 3a (HCC) Allergies Active Allergy Reactions Criticality Noted Date Comments Amoxicillin-Pot Clavulanate Other (Please comment) 01/14/2015 Severe Yeast infection Morphine And Related Unknown 02/19/2003 Codeine makes her vomit Sulfa Antibiotics Edema face/lips/tongue,Oth er (Please comment) High 02/19/2003 Headache documented as of this encounter (statuses as of 06/11/2023) Medications Medication Sig Dispensed Refills Start Date End Date Status PERPHENAZINE 2 MG PO TABS one to two tablets at bedtime 0 02/09/2014 Active LORAzepam (ATIVAN) 0.5 MG Tablet Take 1 Tablet by mouth at bedtime as needed for Anxiety or Insomnia. 30 Tab 0 08/22/2015 Active [place]-3 Fatty Acids (FISH OIL) 1200 MG CAPS [...] day as needed. 0 01/04/2022 Active Nystatin 559412 UNIT/GM External Powder (Nystop)Indications: Candidal skin infection [...] bedtime. 180 Each 3 07/03/2022 Active Nystatin 055587 UNIT/GM External CreamIndications:Can didal skin infection Apply [...] before bedtime. 100 g 3 10/18/2022 Active Additional Information Patient not taking.Reported on 06/11/2023 Citalopram Hydrobromide 10 MG Oral Tablet (CeleXA) 0 12/11/2022 Acti ve Citalopram Hydrobromide 20 MG Oral Tablet (CeleXA) 0 12/11/2022 Acti ve Vilazodone HCl 20 MG Oral Tablet (Viibryd) 0 12/11/2022 Active Triamcinolone Acetonide 0.5 % External Cream (Aristocort)Indicati ons:Policy Service Coordinator's papule Apply topically to affected area 2 [...] EVERY MORNING 90 Tablet 1 01/28/2023 Active Vitamin E 180 MG (400 UNIT) [...] With food.. 60 Tablet 3 03/18/2023 Active Additional Information Patient not taking.Reported on [...] EVERY MORNING 90 Capsule 1 04/01/2023 Active Chlorthalidone 50 MG Oral Tablet (Hygroton) TAKE ONE TABLET BY MOUTH EVERY MORNING 90 Tablet 1 05/02/2023 Active Additional Information Patient not taking.Reported on 06/11/2023 Aspirin Low Dose 81 MG Oral Tablet Delayed Release (aspirin enteric coated) TAKE ONE TABLET BY MOUTH EVERY MORNING 90 Tablet 3 05/20/2023 Active tiZANidine HCl 4 MG Oral Tablet (Zanaflex) Take 1 Tablet by mouth every 8 hours as needed for Muscle spasms. 60 Tablet 2 05/30/2023 Active Lisinopril 5 MG Oral Tablet (Prinivil) Take 1 Tablet by mouth in the morning. 30 Tablet 5 06/11/2023 Active Metoprolol Tartrate 25 MG Oral Tablet (Lopressor) Take 1 Tablet by mouth in the morning and 1 Tablet before bedtime. 60 Tablet 5 06/11/2023 Active documented as of this encounter (statuses as of 06/11/2023) Active Problems Problem Noted Date Diagnosed Date [...] as of this encounter (statuses as of 06/11/2023) Resolved Problems Problem Noted Date Diagnosed Date [...] and 6 MWT Genetic Sleep Disorder Resea [facility] Other*[id number] 08/27/2011 01/18/2016 Routine general medical exam ination [...] as of this encounter (statuses as of 06/11/2023) Immunizations Name Administration Dates Next Due COVID-19 [...] on file documented as of this encounter Plan of Treatment Upcoming Encounters Date Type Department Care Team (Late st Contact Info) Description 09/02/2023 12:20 PM EDT Office Visit [facility] [address] [place] [facility] [place] [address] Patti Posadas MD [address] [facility] [address] Pending Results Name Type Priority Associated Diagnoses Date /Time ALBUMIN / CREATININE RATIO, URINE Lab Routine Screening for nephropathy 06/11/2023 3:09 PM EST LIPID PANEL WITH DIRECT LDL IF TG IS HIGH Lab Routine Encounter for long-term (current) use of other medications 06/11/2023 3:09 PM EST BASIC METABOLIC PANEL Lab Routine Chronic kidney disease, stage 3a (HCC) 06/11/2023 3:09 PM EST Scheduled Procedures Name Priority Associated Diagnoses Date/Ti [...] 05/02/2021, 08/10/2020, 07/13/2020 CKD PHOS USE SMARTSET 86550 03/12/202302/16, 02/22/2021, 02/10/2020, Additional history exists Albumin/Creatinine Ratio 08/29/2023 023, 08/14/2021, 08/12/2020, Additional history exists GFR 09/02/2023 03/04/2023, 07/0 08/2022, 08/28/2022, Additional history exists HbA1c 09/02/2023 03/04/2023, 08/15, 03/12/2022, Additional history exists B-12 03/04/2024 03/04/2023, 1 09/2022, 02/22/2021, Additional history exists CKD HGB USE SMARTSET 30342 03/04/202403/04, 12/17/2022, 12/17/2022, Additional history exists Diabetic Foot Exam 03/04/2024 03/04/2023, 0 02/07/2021, 02/10/2020, Additional history exists TSH 03/04/2024 03/04/2023, 08/15, 03/12/2022, Additional history exists O2 ASSESSMENT COMPLETED IN PAST YEAR FOR COPD 05/30/2024 05/30/2023 Diabetic Eye Exam 06/11/2024 06/11/2023, , 08/08/2021, Additional history exists Lipid Panel 03/12/2027 03/12/2022, 01/2021, 08/21/2019, Additional history exists DTaP,Tdap,and Td Vaccines (4 - Td or Tdap) 08/31/2030 08/31/2020, 05/19/2010, 07/20/2003 Hepatitis C Screening Completed 11/15/2014 Pneumococcal Vaccine: 65+ Years Completed 08/27/2016, 08/16/2014, 05/08/2011, Additional history exists LUNG CANCER SCREENING - USE SMARTSET 77140 Completed 09/26/2021, 09/20/2020, 09/18/2017 (Declined) Influenza Vaccine [...] as of this encounter Visit Diagnoses Diagnosis Screening for nephropathy Encounter for long-term (current) use of other medications Chronic kidney disease, stage 3a (HCC) documented in this encounter Care Teams Animal Rescuer Relationship Specialty Start Date End Date Patti Posadas MD [address] [place] [address] PCP - General Internal Medicine 01/18/22 documented as of this encounter
--- OUTSIDE RECORDS SUMMARY | 2023-06-19 19:29 | External Medical Summary | Summary of Care ---
Author Name Unknown Organization [facility] Address [address] [place] [address] Phone [phone] Care Team Providers Care Mastercam Programmer Name Role Phone Patti Posadas MD Primary Care Provider [phone] Reason for Visit * Reason Onset Date Comments Advice 06/15/2023 Pt called on [facility] nurse line - BP 200/100. [facility] nurse advised pt to go to ER - Pt refused. Encounter Details Date Type Department Care Team (Late st Contact Info) Description 06/15/2023 Telephone [facility] [address] [place] [address] Patti Posadas MD [address] [place] [address] Advice (Pt called convex grinder [facility] nurse ... Allergies Active Allergy Reactions Criticality Noted Date Comments Amoxicillin-Pot Clavulanate Other (Please comment) 01/14/2015 Severe Yeast infection Morphine And Related Unknown 02/19/2003 Codeine makes her vomit Sulfa Antibiotics Edema face/lips/tongue,Oth er (Please comment) High 02/19/2003 Headache documented as of this encounter (statuses as of 06/15/2023) Medications Medication Sig Dispensed Refills Start Date End Date Status PERPHENAZINE 2 MG PO TABS one to two tablets at bedtime 0 02/09/2014 Active LORAzepam (ATIVAN) 0.5 MG Tablet Take 1 Tablet by mouth at bedtime as needed for Anxiety or Insomnia. 30 Tab 0 08/22/2015 Active [place]-3 Fatty Acids (FISH OIL) 1200 MG CAPS [...] day as needed. 0 01/04/2022 Active Nystatin 019902 UNIT/GM External Powder (Nystop)Indications: Candidal skin infection [...] bedtime. 180 Each 3 07/03/2022 Active Nystatin 649860 UNIT/GM External CreamIndications:Can didal skin infection Apply [...] Triamcinolone Acetonide 0.5 % External Cream (Aristocort)Indicati ons:Elder Assistant's papule Apply topically to affected area 2 [...] as of this encounter (statuses as of 06/15/2023) Active Problems Problem Noted Date Diagnosed Date [...] disorder) 03/25/2018 Gastroesophageal reflux disease 03/25/2018 [place] (myocardial infarction) 03/25/2018 Severe obesity with body [...] as of this encounter (statuses as of 06/15/2023) Resolved Problems Problem Noted Date Diagnosed Date [...] and 6 MWT Genetic Sleep Disorder Resea [facility] Other*[id number] 08/27/2011 01/18/2016 Routine general medical exam ination [...] as of this encounter (statuses as of 06/15/2023) Immunizations Name Administration Dates Next Due COVID-19 [...] encounter Miscellaneous Notes * Telephone Encounter - Kaylen Tineo LPN - 06/15/2023 11:58 AM EST Returned call to [facility] nurse. Recommended patient be evaluated at Er or CC * Telephone Encounter - Nan Barlow OSA - 06/15/2023 11:50 AM EST Pt called convex grinder [facility] nurse line - BP 200/100. [facility] nurse advised pt to go to ER - Pt refused. Denies any other symptoms. Pt took medication as she should. Call [facility] Nurse back at [phone] documented in this encounter Plan of Treatment Upcoming Encounters Date Type Department Care Team (Late st Contact Info) Description 09/02/2023 12:20 PM EDT Office Visit [facility] [address] [place] [facility] [place] [address] Patti Posadas MD [address] [place] [facility] [place] [address] Scheduled Procedures Name Priority Associated Diagnoses [...] 05/02/2021, 08/10/2020, 07/13/2020 CKD PHOS USE SMARTSET 42494 03/12/202302/16, 02/22/2021, 02/10/2020, Additional history exists *NEPHROLOGY REFERRAL DUE TO RESISTANT HTN 06/14/2023 HbA1c 09/02/2023 03/04/2023, 08/15, 03/12/2022, Additional history exists GFR 12/11/2023 06/11/2023, 02/15, 12/17/2022, Additional history exists B-12 03/04/2024 03/04/2023, 08/15, 02/22/2021, Additional history exists CKD HGB USE SMARTSET 66183 03/04/202403/04, 12/17/2022, 12/17/2022, Additional history exists Diabetic [...] exists LUNG CANCER SCREENING - USE SMARTSET 15037 Completed 09/26/2021, 09/20/2020, 09/18/2017 (Declined) Influenza Vaccine [...] filedocumented as of this encounter Care Teams Mastercam Programmer Relationship Specialty Start Date End Date Patti Posadas MD [address] [place] [address] PCP - General Internal Medicine 01/18/22 documented as of this encounter
--- OUTSIDE RECORDS SUMMARY | 2023-06-19 19:29 | External Medical Summary ---
Author Name Unknown Address Unknown Organization [id number]:LABORATORY [facility] - [address] [place] [address] Laboratory Report Ordering Provider Test Date Status MATEO KENDRICK 06/11/2023 15:09:33 Final Normal: <30 mg/g creatinine< br/>High: 30-300 mg/g creatinine
Very High: >300 mg/g creatinine
Nephrotic: >2200 mg/g creatinine Observation Date Value Abnormality Reference (Units ) Status Albumin, Urine 06/11/2023 15:09:33 17.66 (mg/dL) Final Creatinine, Urine 06/11/2023 15:09:33 50 (mg/dL) Final Albumin/Creatinine [Mass Ratio] in Urine 06/11/2023 15:09:33 353 Above high normal <30 (mg/g Creat) Final Performing Location LABORATORY [facility] - [address] [place] [address]
--- OUTSIDE RECORDS SUMMARY | 2023-06-19 19:29 | External Medical Summary ---
Author Name Unknown Address Unknown Organization K01:LABORATORY [facility] - [address] [facility] [address] Laboratory Report Ordering Provider Test Date Status MATEO KENDRICK 06/11/2023 15:09:33 Final Observation Date Value Abnormality Reference (Units ) Status BUN 06/11/2023 15:09:33 11 6-20 (mg/dL) Final Creatinine 06/11/2023 15:09:33 1.2 Above high normal 0.5-1.0 (mg/dL) Final Glomerular filtration rate/1.73 sq M.predicted [Volume Rate/Area] in Serum, Plasma or Blood by Creatinine-based formula (CKD-EPI) 06/11/2023 15:09:33 48 Below low normal >=60 (mL/min) Final eGFR is calculated based on the CKD-EPI 2020 equation SODIUM 06/11/2023 15:09:33 143 135-146 (m mol/L) Final Potassium 06/11/2023 15:09:33 4.2 3.5-5.1 (m mol/L) Final Cl 06/11/2023 15:09:33 99 98-107 (mm ol/L) Final CO2 06/11/2023 15:09:33 29 22-32 (mmo l/L) Final Anion gap 06/11/2023 15:09:33 15 7-15 (mmol /L) Final Glucose 06/11/2023 15:09:33 127 Above high normal 70 -120 (mg/dL) Final Calcium 06/11/2023 15:09:33 10.5 Above high normal 8. 4-10.2 (mg/dL) Final Performing Location LABORATORY [facility] - [address] [facility] [address]
--- OUTSIDE RECORDS SUMMARY | 2023-06-19 19:29 | External Medical Summary | Summary of Care ---
Author Name Unknown Organization [facility] Address [address] [place] [address] Phone [phone] Care Team Providers Care Television Operator Name Role Phone Patti Posadas MD Primary Care Provider [phone] Reason for Visit * Reason Comments Hospital Follow-Up Pt was at Hosp due t o BP being all over the place. Encounter Details Date Type Department Care Team (Late st Contact Info) Description 06/11/2023 2:00 PM EST Office Visit [facility] [address] [place] [address] Patti Posadas MD [address] [place] [address] Type 2 diabetes mellitus with stage 3a chronic kidney disease, without long-term current use of insulin ([facility])*; HTN, GOAL BELOW 140/90; Hypotension, unspecified hypotension type; [place] (myocardial infarction); Chronic kidney disease, stage 3a ([facility]); Type 2 diabetes mellitus with hemoglobin A1c goal of less than 7.0% ([facility]) Allergies Active Allergy Reactions Criticality Noted Date [...] or Insomnia. 30 Tab 0 6 Active [place]-3 Fatty Acids (FISH OIL) 1200 MG CAPS [...] day as needed. 0 2 Active Nystatin 209658 UNIT/GM External Powder (Nystop)Indication s:Candidal skin infection [...] bedtime. 180 Each 3 3 Active Nystatin 394218 UNIT/GM External CreamIndications:C andidal skin infection Apply [...] Triamcinolone Acetonide 0.5 % External Cream (Aristocort)Indica tions:Structurer's papule Apply topically to affected area 2 [...] disorder) 03/25/2018 Gastroesophageal reflux disease 03/25/2018 [place] (myocardial infarction) 03/25/2018 Severe obesity with body [...] and 6 MWT Genetic Sleep Disorder Resea [facility] Other*[id number] 08/27/2011 01/18/2016 Routine general medical exam ination [...] Progress Notes * Patti Posadas MD - 06/11/2023 2:31 [...] intake, irregular eating Known CAD, hx of NM, CKD , HTN Med - down to [...] goal LDL below 100 E78.5 Centrilobular emphysema ([facility]) J43.2 Acquired hypothyroidism E03.9 Mild persistent asthma without complication J45.30 Type 2 diabetes mellitus with hemoglobin A1c goal of less than 7.0% ([facility]) E11.9 Severe obesity with body mass index (BMI) of 35.0 to 39.9 with serious comorbidity ([facility]) E66.01 GERARDO (generalized anxiety disorder) F41.1 Gastroesophageal reflux disease K21.9 [place] (myocardial infarction) I25.2 Periodic limb movement disorder (PLMD) G47.61 Need for prophylactic vaccination and inoculation against influenza Z23 Nocturnal hypoxemia G47.34 History of tobacco abuse Z87.891 Major depressive disorder, recurrent, unspecified ([facility]) F33.9 Benign hypertension with stage 3a chronic kidney disease ([facility]) I12.9, N18.31 Type 2 diabetes mellitus with stage 3a chronic kidney disease ([facility]) E11.22, N18.31 Chronic kidney disease, stage 3a ([facility]) N18.31 COPD, group B, by GOLD 2017 classification ([facility]) J44.9 DDD (degenerative disc disease), thoracic M51.34 Current Outpatient Medications Medication Sig Dispense Refill PERPHENAZINE 2 MG PO TABS one to two tablets at bedtime [place]-3 Fatty Acids (FISH OIL) 1200 MG CAPS Take 1 Cap by mouth daily. doxepin (SINEQUAN) 25 MG Capsule Take 1 Cap by mouth at bedtime. 90 Cap 3 traZODone (DESYREL) 50 MG Tablet Take 1 Tablet by mouth at bedtime. 30 Tab 5 hydrOXYzine HCl 25 MG Oral Tablet Take 1 Tablet by mouth 2 times a day as needed. Nystatin 086235 UNIT/GM External Powder (Nystop) Apply topically to [...] Puff before bedtime. 180 Each 3 Nystatin 363875 UNIT/GM External Cream Apply topically to affected [...] performed by Ines Bailey DO at [facility] COLONOSCOPY, DIAGNOSTIC (RECTUM) 01/28/2018 diverticulosis, repeat 5 yrs/COLONOSCOPY FLEXIBLE PROXIMAL DIAGNOSTIC performed by Ines Bailey DO at [facility] DOBUTAMINE STRESS ECHO 05/20 equivocal stress findings; negative stress echo findings LEFT HE[place] CATHETER[place] [address] [facility] REMOVAL OF APPENDIX 15 y/o REMOVE CATARACT, INSERT LENS PROSTH 1992, 1995 Rt/Lt REPAIR INITIAL INGUINAL HERNIA REDUCIBLE AGE 4 OR MORE Left 08/05/2017 08/05/2017 repair of left inguinal hernia - [facility] Dr. 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: [employer] x[employer] yrs Occupation: disability Comment: DJD, [...] 140/90 (Primary) Hypotension, unspecified hypotension type [place] (myocardial infarction) Type 2 diabetes mellitus with [...] Description 09/02/2023 12:20 PM EDT Office Visit [facility] [address] [place] [address] Patti Posadas MD [address] [place] [address] Pending Results Name Type Priority Associated Diagnoses Date /Time BASIC METABOLIC PANEL Lab Routine Chronic kidney disease, stage 3a (HCC) 06/11/2023 3:09 PM EST Scheduled Orders Name Type Priority Associated Diagnoses Orde r Schedule BASIC METABOLIC PANEL Lab Routine Chronic kidney disease, stage 3a (HCC) Expected: 06/11/2023 (Approximate), Expires: 06/10/2024 Scheduled Procedures Name Priority Associated Diagnoses Date/Ti [...] 05/02/2021, 08/10/2020, 07/13/2020 CKD PHOS USE SMARTSET 39985 03/12/20232 11/2021, 02/22/2021, 02/10/2020, Additional history exists Albumin/Creatinine Ratio 08/29/2023 023, 08/14/2021, 08/12/2020, Additional history exists GFR 09/02/2023 03/04/2023, 07/0 08/2022, 08/28/2022, Additional history exists HbA1c 09/02/2023 03/04/2023, 08/15, 03/12/2022, Additional history exists B-12 03/04/2024 03/04/2023, 08/15, 02/22/2021, Additional history exists CKD HGB USE SMARTSET 05219 03/04/202403/04, 12/17/2022, 12/17/2022, Additional history exists Diabetic [...] exists LUNG CANCER SCREENING - USE SMARTSET 46359 Completed 09/26/2021, 09/20/2020, 09/18/2017 (Declined) Influenza Vaccine [...] (HCC) documented in this encounter Results * TELEMEDICINE DIABETIC EYE (06/11/2023) 06/11/2023 Patti Posadas MD DIGITAL PHOTOGRAPHY documented in this encounter Visit Diagnoses Diagnosis Type 2 diabetes mellitus with stage 3a chronic kidney disease, without long-term current use of insulin (HCC)- Primary HTN, GOAL BELOW 140/90 Unspecified essential hypertension Hypotension, unspecified hypotension type [place] (myocardial infarction) Old myocardial infarction Chronic kidney disease, stage 3a (HCC) Type 2 diabetes mellitus with hemoglobin A1c goal of less than 7.0% (HCC) documented in this encounter Care Teams Television Operator Relationship Specialty Start Date End Date Patti Posadas MD [address] [place] [address] [place] [address] PCP - General Internal Medicine 01/18/22 documented as of this encounter"
--- OUTSIDE RECORDS SUMMARY | 2023-06-19 19:29 | External Medical Summary ---
Author Name Unknown Address Unknown Organization K01:[facility] - [address] [place] [address] Laboratory Report Ordering Provider Test Date Status SANTINO SNEED 06/11/2023 15:09:33 Final Observation Date Value Abnormality Reference (Units ) Status LDL, (direct) 06/11/2023 15:09:33 106 <=129 (mg/dL) Final LDL Cholesterol Reference Ra nges (mg/dL):
<70 Target level for high risk ASCVD patient
<100 Optimal for general population
100-129 Near optimal for general population
130-159 Borderline high
160-189 High
>=190 Very high Performing Location LABORATORY [facility] - [address] [place] [address]
[2023-06-19] MEDS ORDERED: PNEUMOCOCCAL VACCINE (PCV20) 20-VAL CONJ-DIP CRM/PF 0.5 ML SYR IM ONE (20:00)
[2023-06-19] MEDS: tiZANidine HCL 4 MG TABLET PO SCH (20:01)
[2023-06-19] MEDS: ATORVASTATIN 10 MG TAB PO SCH (20:01)
[2023-06-19] MEDS: traZODone HCL 50 MG TAB PO SCH (20:02)
[2023-06-19] MEDS: FAMOTIDINE 20 MG TAB PO SCH (20:02)
[2023-06-19] MEDS: DOXEPIN HCL 25 MG CAPSULE PO SCH (20:02)
[2023-06-19] MEDS: METOPROLOL SUCC 25MG EXT REL TAB PO SCH (20:02)
[2023-06-19] MEDS: PERPHENAZINE 4 MG TAB PO SCH (20:02)
[2023-06-19] MEDS ORDERED: ENOXAPARIN INJ 40 MG/0.4 ML SYR SQ SCH (21:00)
[2023-06-19] MEDS ORDERED: hydrALAZINE HCL 20 MG/ML VIAL IV PRN (21:30)
[2023-06-19] MEDS: LORazepam 0.5 MG TAB PO PRN (21:34)
[2023-06-19] MEDS: FLUTICASONE PROPIONATE NA SPR 16 GM BTL NAE SCH (21:36)
[2023-06-20] MEDS: LEVOTHYROXINE SODIUM 125 MCG TABLET PO SCH (05:34)
[2023-06-20 06:54] LABS: Hematocrit (blood only) 35.8 % (37.0-47.0); Hemoglobin 11.9 g/dl (12.0-16.0); Mean Corpuscular Hemoglobin 30.6 pg (25.0-34.0); Mean Corpuscular Hgb Conc 33.2 g/dL (32.0-36.0); Mean Platelet Volume 11.3 fL (9.4-12.4); Platelet Count 207 K/uL (130-400); RDW Coefficient of Variation 12.9 % (11.5-14.5); RDW Standard Deviation 43.7 fL (36.4-46.3); Red Blood Count 3.89 M/uL (4.20-5.40); White Blood Count 6.47 K/ul (4.8-10.8)
[2023-06-20 07:22] LABS: BUN Creatinine Ratio 11.6 (10-20); Calcium 9.4 mg/dl (8.6-10.3); Creatinine Clr Calc Pharmacy 24.7 ml/min; Est GFR (African American) 28.3 ml/min; Est GFR (Non-African American) 24.5 ml/min; Magnesium 2.2 mg/dl (1.7-2.4)
[2023-06-20] MEDS: INSULIN ASPART PER UNIT CHARGE SC SCH ×4 (08:36→20:44)
[2023-06-20] MEDS: CITALOPRAM 20 MG TAB PO SCH ×2 (08:38→08:41)
[2023-06-20] MEDS: tiZANidine HCL 4 MG TABLET PO SCH ×2 (08:39→20:44)
[2023-06-20] MEDS: FAMOTIDINE 20 MG TAB PO SCH ×2 (08:40→20:43)
[2023-06-20] MEDS: ASPIRIN 81 MG ECTAB PO SCH (08:40)
[2023-06-20] MEDS: CETIRIZINE HCL 10 MG TABLET PO SCH (08:40)
[2023-06-20] MEDS: METOPROLOL SUCC 25MG EXT REL TAB PO SCH ×2 (08:40→20:44)
[2023-06-20] MEDS: MONTELUKAST SODIUM 10 MG TABLET PO SCH (08:41)
[2023-06-20] MEDS: MAGNESIUM OXIDE 400 MG TAB PO SCH (08:41)
[2023-06-20] MEDS: LACTATED RINGER'S 1,000 ML IV SCH ×2 (08:42→23:24)
[2023-06-20] MEDS: FLUTICASONE/VILANTEROL 100/25MCG 14 PUFFS/INHALER INH SCH (08:42)
[2023-06-20] MEDS ORDERED: LISINOPRIL/HCTZ 10/12.5MG TAB PO SCH (09:00)
[2023-06-20] MEDS: HEPARIN SOD 5,000 UNIT/0.5 ML VIAL SQ SCH ×2 (10:08→20:44)
--- NOTE | 2023-06-20 13:43 | Electrocardiogram Report ---
Test Reason : Blood Pressure : / mmHG Vent. Rate : 093 BPM Atrial Rate : 093 BPM P-R Int : 148 ms QRS Dur : 072 ms QT Int : 374 ms P-R-T Axes : 085 077 075 degrees QTc Int : 465 ms Normal sinus rhythm Nonspecific ST abnormality Abnormal ECG When compared with ECG of 04-JUN-2023 14:47, No significant change was found Confirmed by Willie Mitchell ([id number]) on 06/20/2023 1:42:36 PM Referred By: REFERRED SELF Confirmed By:Willie Mitchell
--- NOTE | 2023-06-20 14:15 | Hospitalist Progress Note ---
Date of Service June 20, 2023 Assessment & Plan (1) Labile blood pressure: Plan 72 y/o F with PMH of prior NH, HTN, dyslipidemia, CKD III, COPD, DM II, ADRI, anxiety, obesity presented to ER / with complaint of high blood pressure and headache. Recent admission 05/2023 for hypotension & ADI; and lisinopril and chlorthalidone were held and metoprolol succinate was decreased from 50 mg daily to 12.5 mg twice daily. Follow up with PCP lisinopril 5mg restarted and 25 mg metoprolol BID. Home BP readings remained elevated and pt prescribed lisinopril 10 mg/HCTZ 12.5 mg daily however did not receive yet from mail order pharmacy by the time of presentation to hospital. She is being managed for the following: Hypertensive urgency Labile blood pressure ADI over CKD stage III: Baseline creatinine around 1.2. Patient presented with high blood pressure 222/147. CT head with no acute finding, CXR with no acute finding. In the ED received labetalol 10 Mg IV x 2 and lisinopril 20 Mg x 1. Blood pressure improved to 159/79. Troponin WNL at presentation. Lisinopril 10 Mg and hydrochlorothiazide 12.5 Mg was a started at admission. Today patient is hypotensive, and likely could be the reason for her ADI over CKD. Lisinopril HCTZ on hold, nephrology consult for labile blood pressure and ADI over CKD Continue with IV fluids. As needed blood pressure medication on board, BMP in AM. Metoprolol with holding parameters. Fall precaution. Hypomagnesemia: Admitting magnesium 1.5, repleted. Monitor replete. Other chronic medical conditions: Continue with/resume home meds as and when able COPD: Stable, no signs of exacerbation. Continue home inhalers Dyslipidemia: Continue home statin T2DM: A1c 5.9 on 06/05/2023. Hold metformin. SSI while in hospital. Heart attack: History of NH 1996. No chest pain or shortness of breath. Negative troponin at presentation. Continue home aspirin/atorvastatin/metoprolol. Anxiety and depression: Continue home medications, patient follows with psyc hiatry ADRI: CPAP, 2 L O2 at bedtime. Patient states she has not been using CPAP regularly Acid reflux: Continue Pepcid DVT prophylaxis: Lovenox Full code Follows Dr. Posadas for routine care Admission and Anticipated Discharge Date Admission Date: June 19, 2023 Subjective Patient was seen and examined at bedside. Patient was lying in bed, on room air, resting comfortably, not in any acute distress. Patient came in with hypertension, has been running hypotension, patient denies headache or dizziness or chest pain or palpitation. Fall precaution. Discussed with RN at bedside. Patient reports eating okay and moving bowels okay. Patient denies sore throat or cough. Physical Exam Physical Exam: GENERAL: Alert and oriented x3. NAD, on RA. Obese Class II. HEENT: No pallor, no icterus. Pupils equal, round and reactive to light. Oral mucosa moist. NECK: No JVD, no neck masses. HEART: S1 and S2 heard. Regular rate and rhythm. No murmur, no gallop. RESPIRATORY SYSTEM: Normal AP diameter. No accessory muscle use. No wheezing, no crackles. ABDOMEN: Soft, bowel sounds present, nontender, no distention. CENTRAL NERVOUS SYSTEM: No facial droop. Speech is clear. Obeys simple commands. Moves extremities. EXTREMITIES: No edema, no erythema seen. Results & Data Results & Data Vital Signs (Past 12 Hours) Vital Signs Temp Pulse Pulse Resp BP BP Pulse Ox 06/20/23 12:26 66 06/20/23 11:50 36.8 C 65 16 71/44 L 94 06/20/23 07:50 36.6 C 74 16 135/74 91 06/20/23 07:34 06/20/23 03:33 36.7 C 61 18 112/64 92 06/20/23 03:17 12 O2 Del Method FiO2 06/20/23 12:26 06/20/23 11:50 Room Air 06/20/23 07:50 Room Air 06/20/23 07:34 CPAP 06/20/23 03:33 CPAP 06/20/23 03:17 21
--- NOTE | 2023-06-20 15:28 | Nephrology Progress Note ---
Date of Service June 20, 2023 Assessment & Plan (1) ADI (acute kidney injury): Plan: her renal function is also quite labile. She had near normal kidney function yesterday with a creatinine of 1.1 but this morning did go up substantially to 1.98. Most likely etiology is sudden drop in blood pressure. Rapid drop in blood pressure can cause hypoperfusion of the kidney and is enough to cause prerenal type acute renal failure. for now I agree with IV hydration with Ringer's lactate given that she has had multiple super low blood pressure readings today it is quite possible she will have further rise in her creatinine tomorrow (2) Labile blood pressure: Plan: given multiple readings of low blood pressure today agree with stopping everything except metoprolol. Would rather tolerate high blood pressure than low in the short term if possible also stopped Zanaflex-- muscle relaxants can be associated with super low blood pressure in some patients. (3) Hypomagnesemia: Plan: slightly low on admission but corrected fairly easily. Continue same Admission and Anticipated Discharge Date Admission Date: June 19, 2023 Subjective 72/F with h/o HTN, CKD and recent ADI, prior GA, COPD, DM II, ADRI, anxiety, obesity presented to ER with Headache and high blood pressure. she was recently Admitted here at [facility] on 06/04/2023-06/10/2023 for hypotension, ADI, slurred speech thought likely secondary to hypotensive episode. During admission her lisinopril and chlorthalidone were held and metoprolol succinate was decreased from 50 mg daily to 12.5 mg twice daily. She was seen at PCPs office 06/11/2023 and had BP of 145/95. She was instructed to start taking 25 mg metoprolol tartrate twice daily and resume her lisinopril at 5 mg daily. her blood pressure at home has been running high in the 160s and 170s systolic. she is also complaining of intermittent nausea but no vomiting. Appetite is still normal. Denies fever/chills, diaphoresis, V/D/C, dizziness, syncope, vision c hanges, CP, SOB, orthopnea, palpitations, cough, sore throat, otalgia, rhinorrhea, abdominal pain, paresthesias, weakness, extremity weakness, extremity edema, rashes, urinary symptoms. Her blood pressure yesterday was as high as 209 systolic but review of her most recent blood pressure shows it has dropped substantially and now she is starting to have low blood pressure and just recently had blood pressure of 71/44. creatinine was 1.1 yesterday on admission but this morning was up to 2. Since then she has been started on Ringer lactate. after the blood pressure drop she is now only on metoprolol 25 twice daily. hydralazine labetalol and lisinopril/ hydrochlorothiazide has been given and stopped. most recent blood pressure now is 109 x 71 review -of systems----- as detailed in HPI. Positive for headache nausea high blood pressure. Otherwise 12 systems reviewed and negative physical examination elderly white female who is not in any respiratory distress. Normal speech and able to give detailed account of her medical history awake alert oriented x3 mucous membrane moist neck is supple no JVD chest bilateral clear to auscultation CVS S1-S2 regular No murmur abdomen is soft nontender obese extremities shows 1+ edema Results & Data Vital Signs (Past 12 Hours) Vital Signs Temp Pulse Pulse Resp BP BP Pulse Ox 06/20/23 12:26 66 06/20/23 11:50 36.8 C 65 16 71/44 L 94 06/20/23 07:50 36.6 C 74 16 135/74 91 06/20/23 07:34 06/20/23 03:33 36.7 C 61 18 112/64 92 O2 Del Method 06/20/23 12:26 06/20/23 11:50 Room Air 06/20/23 07:50 Room Air 06/20/23 07:34 CPAP 06/20/23 03:33 CPAP Laboratory Results reviewed in detail
[2023-06-20] MEDS: ACETAMINOPHEN 325 MG TAB PO PRN (18:15)
[2023-06-20] MEDS: PERPHENAZINE 4 MG TAB PO SCH (20:43)
[2023-06-20] MEDS: DOXEPIN HCL 25 MG CAPSULE PO SCH (20:44)
[2023-06-20] MEDS: ATORVASTATIN 10 MG TAB PO SCH (20:44)
[2023-06-20] MEDS: FLUTICASONE PROPIONATE NA SPR 16 GM BTL NAE SCH (20:45)
[2023-06-20] MEDS: LORazepam 0.5 MG TAB PO PRN (22:34)
[2023-06-20] MEDS: traZODone HCL 50 MG TAB PO SCH (22:34)
[2023-06-21] MEDS: LEVOTHYROXINE SODIUM 125 MCG TABLET PO SCH (04:27)
[2023-06-21 06:40] LABS: Hemoglobin 11.2 g/dl (12.0-16.0); Mean Corpuscular Hemoglobin 30.7 pg (25.0-34.0); Mean Corpuscular Hgb Conc 33.9 g/dL (32.0-36.0); Mean Corpuscular Volume 90.4 fL (80.0-100.0); Mean Platelet Volume 11.8 fL (9.4-12.4); Platelet Count 180 K/uL (130-400); RDW Coefficient of Variation 12.6 % (11.5-14.5); RDW Standard Deviation 41.6 fL (36.4-46.3); Red Blood Count 3.65 M/uL (4.20-5.40); White Blood Count 5.11 K/ul (4.8-10.8)
[2023-06-21 07:06] LABS: BUN Creatinine Ratio 14.6 (10-20); Calcium 9.2 mg/dl (8.6-10.3); Creatinine Clr Calc Pharmacy 30.1 ml/min; Est GFR (African American) 35.6 ml/min; Est GFR (Non-African American) 30.7 ml/min; Magnesium 1.9 mg/dl (1.7-2.4)
[2023-06-21] MEDS: FLUTICASONE/VILANTEROL 100/25MCG 14 PUFFS/INHALER INH SCH (08:22)
[2023-06-21] MEDS: HEPARIN SOD 5,000 UNIT/0.5 ML VIAL SQ SCH ×2 (08:23→20:38)
[2023-06-21] MEDS: CITALOPRAM 20 MG TAB PO SCH ×2 (08:24)
[2023-06-21] MEDS: MONTELUKAST SODIUM 10 MG TABLET PO SCH (08:24)
[2023-06-21] MEDS: ASPIRIN 81 MG ECTAB PO SCH (08:24)
[2023-06-21] MEDS: CETIRIZINE HCL 10 MG TABLET PO SCH (08:25)
[2023-06-21] MEDS: MAGNESIUM OXIDE 400 MG TAB PO SCH (08:26)
[2023-06-21] MEDS: METOPROLOL SUCC 25MG EXT REL TAB PO SCH ×2 (08:26→20:37)
[2023-06-21] MEDS: FAMOTIDINE 20 MG TAB PO SCH ×2 (08:27→20:33)
[2023-06-21] MEDS: INSULIN ASPART PER UNIT CHARGE SC SCH ×4 (09:10→20:37)
--- NOTE | 2023-06-21 09:57 | Nephrology Progress Note ---
Date of Service June 21, 2023 Assessment & Plan Admission and Anticipated Discharge Date Admission Date: June 19, 2023 Subjective Assessment & Plan (1) ADI (acute kidney injury): Plan: her renal function is also quite labile. She had near normal kidney function yesterday with a creatinine of 1.1 but this morning did go up substantially to 1.98 but now down again with iv fluids. Most likely etiology is sudden drop in blood pressure. Rapid drop in blood pressure can cause hypoperfusion of the kidney and is enough to cause prerenal type acute renal failure. Can stop iv fluid once current bag is finished. (2) Labile blood pressure: Plan: given multiple readings of low blood pressure yesterday agree with stopping everything except metoprolol. Would rather tolerate high blood pressure than very low in the short term Would do a 24 hr Ambulatory BP check through nephrology after discharge. so pl ease get nephrology appt after discharge. Nephro nurse will be calling her for Appt to get the 24 hr ambulatory BP machine setup. will be done next week but patient has Transport issues so can be chal lenging (3) Hypomagnesemia: Plan: slightly low on admission but corrected fairly easily. Continue same for discharge also S---Multiple very low BP yesterday but last 12 hrs or so is fine on minimal Meds. making urine. renal labs better now physical examination elderly white female who is not in any respiratory distress. Normal speech and able to give detailed account of her medical history awake alert oriented x3 mucous membrane moist neck is supple no JVD chest bilateral clear to auscultation CVS S1-S2 regular No murmur abdomen is soft nontender obese extremities shows 1+ edema Results & Data Vital Signs (Past 12 Hours) Vital Signs Temp Pulse Pulse Resp BP BP Pulse Ox 06/21/23 07:22 36.7 C 70 20 114/72 94 06/21/23 07:20 06/21/23 05:57 71 06/21/23 04:00 36.3 C L 65 18 105/64 93 06/21/23 02:28 57 L 14 90 06/20/23 23:45 77 06/20/23 23:05 36.6 C 73 18 127/79 94 06/20/23 22:57 O2 Del Method FiO2 06/21/23 07:22 Room Air 06/21/23 07:20 Room Air, CPAP 06/21/23 05:57 06/21/23 04:00 CPAP 06/21/23 02:28 21 06/20/23 23:45 06/20/23 23:05 CPAP 06/20/23 22:57 Room Air, CPAP
[2023-06-21] MEDS: ACETAMINOPHEN 325 MG TAB PO PRN ×2 (12:04→20:34)
--- NOTE | 2023-06-21 13:22 | Hospitalist Progress Note ---
Date of Service June 21, 2023 Assessment & Plan (1) Labile blood pressure: Plan 72 y/o F with PMH of prior [place], HTN, dyslipidemia, CKD III, COPD, DM II, ADRI, anxiety, obesity presented to ER 06/19 with complaint of high blood pressure and headache. Recent admission 05/2023 for hypotension & ADI; and lisinopril and chlorthalidone were held and metoprolol succinate was decreased from 50 mg daily to 12.5 mg twice daily. Follow up with PCP lisinopril 5mg restarted and 25 mg metoprolol BID. Home BP readings remained elevated and pt prescribed lisinopril 10 mg/HCTZ 12.5 mg daily however did not receive yet from mail order pharmacy by the time of presentation to hospital. She is being managed for the following: Hypertensive urgency Labile blood pressure ADI over CKD stage III: Baseline creatinine around 1.2. Patient presented with high blood pressure 222/147. CT head with no acute finding, CXR with no acute finding. In the ED received labetalol 10 Mg IV x 2 and lisinopril 20 Mg x 1. Blood pressure improved to 159/79. Troponin WNL at presentation. Lisinopril 10 Mg and hydrochlorothiazide 12.5 Mg was started at admission 06/19. On 06/20 patient is hypotensive, and likely could be the reason for her ADI over CKD. Lisinopril HCTZ on hold, nephrology consult for labile blood pressure and ADI over CKD d/w nephro, will dc ivf after this, hold zanaflex, c/w metoprolol for now, monitor bp. As needed blood pressure medication on board, BMP in AM. Metoprolol with holding parameters. Fall precaution. Hypomagnesemia: Admitting magnesium 1.5, repleted. Monitor replete. Other chronic medical conditions: Continue with/resume home meds as and when able COPD: Stable, no signs of exacerbation. Continue home inhalers Dyslipidemia: Continue home statin T2DM: A1c 5.9 on 06/05/2023. Hold metformin. SSI while in hospital. Heart attack: History of [place] 1996. No chest pain or shortness of breath. Negative troponin at presentation. Continue home aspirin/atorvastatin/metoprolol. Anxiety and depression: Continue home medications, patient follows with psychiatry ADRI: CPAP, 2 L O2 at bedtime. Patient states she has not been using CPAP regularly Acid reflux: Continue Pepcid DVT prophylaxis: Lovenox Full code Follows Dr. Posadas for routine care Admission and Anticipated Discharge Date Admission Date: June 19, 2023 Subjective Patient was seen and examined at bedside. Patient was lying in bed, on room air, resting comfortably, not in any acute distress. Patient came in with hypertension, has been running hypotension yesterday, patient denies headache or dizziness or chest pain or palpitation. Fall precaution. Patient reports eating okay and moving bowels okay. Patient denies sore throat or cough. d/w nephro, holding zanaflex and monitoring bp further to determine if she needs bp meds adjustment d/w patient, pt ok w/ discontinuing zanaflex. Zanaflex dc'd. Physical Exam Physical Exam: GENERAL: Alert and oriented x3. NAD, on RA. Obese Class II. HEENT: No pallor, no icterus. Pupils equal, round and reactive to light. Oral mucosa moist. NECK: No JVD, no neck masses. HEART: S1 and S2 heard. Regular rate and rhythm. No murmur, no gallop. RESPIRATORY SYSTEM: Normal AP diameter. No accessory muscle use. No wheezing, no crackles. ABDOMEN: Soft, bowel sounds present, nontender, no distention. CENTRAL NERVOUS SYSTEM: No facial droop. Speech is clear. Obeys simple commands. Moves extremities. EXTREMITIES: No edema, no erythema seen. Results & Data Results & Data Vital Signs (Past 12 Hours) Vital Signs Temp Pulse Pulse Resp BP BP Pulse Ox 06/21/23 12:18 36.4 C L 77 16 173/85 H 95 06/21/23 07:22 36.7 C 70 20 114/72 94 06/21/23 07:20 06/21/23 05:57 71 06/21/23 04:00 36.3 C L 65 18 105/64 93 06/21/23 02:28 57 L 14 90 O2 Del Method FiO2 06/21/23 12:18 Room Air 06/21/23 07:22 Room Air 06/21/23 07:20 Room Air, CPAP 06/21/23 05:57 06/21/23 04:00 CPAP 06/21/23 02:28 21
[2023-06-21] MEDS: traZODone HCL 50 MG TAB PO SCH (20:32)
[2023-06-21] MEDS: LORazepam 0.5 MG TAB PO PRN (20:32)
[2023-06-21] MEDS: PERPHENAZINE 4 MG TAB PO SCH (20:33)
[2023-06-21] MEDS: DOXEPIN HCL 25 MG CAPSULE PO SCH (20:35)
[2023-06-21] MEDS: FLUTICASONE PROPIONATE NA SPR 16 GM BTL NAE SCH (20:36)
[2023-06-21] MEDS: ATORVASTATIN 10 MG TAB PO SCH (20:36)
[2023-06-21] MEDS ORDERED: hydrALAZINE HCL 20 MG/ML VIAL IV ONE (23:33)
[2023-06-22] MEDS: LEVOTHYROXINE SODIUM 125 MCG TABLET PO SCH (05:39)
[2023-06-22 07:17] LABS: Mean Corpuscular Hemoglobin 30.8 pg (25.0-34.0); Mean Corpuscular Hgb Conc 34.3 g/dL (32.0-36.0); Mean Corpuscular Volume 89.7 fL (80.0-100.0); Mean Platelet Volume 11.7 fL (9.4-12.4); Platelet Count 192 K/uL (130-400); RDW Coefficient of Variation 12.4 % (11.5-14.5); RDW Standard Deviation 40.6 fL (36.4-46.3); White Blood Count 5.63 K/ul (4.8-10.8)
[2023-06-22 07:37] LABS: BUN Creatinine Ratio 15.1 (10-20); Calcium 9.5 mg/dl (8.6-10.3); Creatinine Clr Calc Pharmacy 41.8 ml/min; Est GFR (African American) 52.4 ml/min; Est GFR (Non-African American) 45.3 ml/min; Potassium 3.8 mmol/L (3.5-5.1)
[2023-06-22] MEDS: FLUTICASONE/VILANTEROL 100/25MCG 14 PUFFS/INHALER INH SCH (08:25)
[2023-06-22] MEDS: MONTELUKAST SODIUM 10 MG TABLET PO SCH (08:25)
[2023-06-22] MEDS: METOPROLOL SUCC 25MG EXT REL TAB PO SCH ×2 (08:25→20:39)
[2023-06-22] MEDS: HEPARIN SOD 5,000 UNIT/0.5 ML VIAL SQ SCH ×2 (08:25→20:39)
[2023-06-22] MEDS: CITALOPRAM 20 MG TAB PO SCH ×2 (08:26→10:26)
[2023-06-22] MEDS: FAMOTIDINE 20 MG TAB PO SCH ×2 (08:27→20:38)
[2023-06-22] MEDS: CETIRIZINE HCL 10 MG TABLET PO SCH (08:27)
[2023-06-22] MEDS: ASPIRIN 81 MG ECTAB PO SCH (08:27)
[2023-06-22] MEDS: MAGNESIUM OXIDE 400 MG TAB PO SCH (08:27)
[2023-06-22] MEDS: INSULIN ASPART PER UNIT CHARGE SC SCH ×4 (08:39→20:35)
[2023-06-22] MEDS: POLYETHYLENE (MIRALAX) 17 GM PACK PO PRN (10:23)
--- NOTE | 2023-06-22 13:11 | Hospitalist Progress Note ---
Date of Service June 22, 2023 Assessment & Plan (1) Labile blood pressure: Plan 72 y/o F with PMH of prior [place], HTN, dyslipidemia, CKD III, COPD, DM II, ADRI, anxiety, obesity presented to ER 1/ with complaint of high blood pressure and headache. Recent admission 05/2023 for hypotension & ADI; and lisinopril and chlorthalidone were held and metoprolol succinate was decreased from 50 mg daily to 12.5 mg twice daily. Follow up with PCP lisinopril 5mg restarted and 25 mg metoprolol BID. Home BP readings remained elevated and pt prescribed lisinopril 10 mg/HCTZ 12.5 mg daily however did not receive yet from mail order pharmacy by the time of presentation to hospital. She is being managed for the following: Hypertensive urgency Labile blood pressure ADI over CKD stage III: Patient presented with high blood pressure 222/147. CT head with no acute finding, CXR with no acute finding. Troponin WNL at presentation. Patient has labile blood pressure; nephrology was consulted. Initially, lisinopril 10 mg and hydrochlorothiazide was started but patient blood pressure decreased along with elevation in the creatinine. Zanaflex was discontinued as it was thought to cause sudden drop in blood pressure As per nephrology.lisinopril and hydrochlorothiazide has been discontinued along with Zanaflex. Plan to continue only with metoprolol and monitor blood pressure for now. Metoprolol with holding parameters. Fall precaution. Hypomagnesemia: Admitting magnesium 1.5, repleted. Monitor replete. Other chronic medical conditions: Continue with/resume home meds as and when able COPD: Stable, no signs of exacerbation. Continue home inhalers Dyslipidemia: Continue home statin T2DM: A1c 5.9 on 06/05/2023. Hold metformin. SSI while in hospital. Heart attack: History of [place] 1996. No chest pain or shortness of breath. Negative troponin at presentation. Continue home aspirin/atorvastatin/metoprolol. Anxiety and depression: Continue home medications, patient follows with psychiatry ADRI: CPAP, 2 L O2 at bedtime. Patient states she has not been using CPAP regularly Acid reflux: Continue Pepcid DVT prophylaxis: Lovenox Full code Follows Dr. Posadas for routine care Please note the above document was generated using voice recognition software. It may contain grammatical, syntax or spelling errors. Any formal questions or concerns about the content, text or information contained within the body of this dictation should be directly addressed to the provider for clarification Admission and Anticipated Discharge Date Admission Date: June 19, 2023 Subjective Patient seen and examined at bedside. She is alert oriented x 3; not in distress. She denies headache, dizziness, chest pain, shortness of breath or abdominal pain. Review of Systems Review of Systems: All systems reviewed & are unremarkable except as noted in Subjective Physical Exam Physical Exam: GENERAL: Alert and oriented x3. NAD, on RA. Obese Class II. HEENT: No pallor, no icterus. Pupils equal, round and reactive to light. Oral mucosa moist. NECK: No JVD, no neck masses. HEART: S1 and S2 heard. Regular rate and rhythm. No murmur, no gallop. RESPIRATORY SYSTEM: Normal AP diameter. No accessory muscle use. No wheezing, no crackles. ABDOMEN: Soft, bowel sounds present, nontender, no distention. CENTRAL NERVOUS SYSTEM: No facial droop. Speech is clear. Obeys simple commands. Moves extremities. EXTREMITIES: No edema, no erythema seen. Results & Data Results & Data Vital Signs (Past 12 Hours) Vital Signs Temp Pulse Pulse Resp BP BP Pulse Ox 06/22/23 11:34 06/22/23 10:04 36.7 C 73 18 164/91 H 192/79 H 96 06/22/23 07:36 67 06/22/23 06:35 36.7 C 78 18 182/108 H 217/95 H 94 06/22/23 03:47 36.5 C 76 18 206/115 H 167/79 H 95 06/22/23 02:25 77 12 93 O2 Del Method FiO2 06/22/23 11:34 Room Air 06/22/23 10:04 Room Air 06/22/23 07:36 06/22/23 06:35 Room Air 06/22/23 03:47 Room Air 06/22/23 02:25 21
[2023-06-22] MEDS: ACETAMINOPHEN 325 MG TAB PO PRN (17:08)
[2023-06-22] MEDS: NIFEdipine EXTENDED REL 30 MG TABCR PO SCH (17:10)
[2023-06-22] MEDS: ATORVASTATIN 10 MG TAB PO SCH (20:38)
[2023-06-22] MEDS: PERPHENAZINE 4 MG TAB PO SCH (20:39)
[2023-06-22] MEDS: DOXEPIN HCL 25 MG CAPSULE PO SCH (20:39)
[2023-06-22] MEDS: traZODone HCL 50 MG TAB PO SCH (20:39)
[2023-06-22] MEDS: FLUTICASONE PROPIONATE NA SPR 16 GM BTL NAE SCH (20:39)
[2023-06-22] MEDS: LORazepam 0.5 MG TAB PO PRN (20:51)
[2023-06-23] MEDS: LEVOTHYROXINE SODIUM 125 MCG TABLET PO SCH (05:57)
[2023-06-23 07:10] LABS: Basophils # (auto) 0.04 K/uL (0.00-0.20); Basophils % (auto) 0.6 %; Eosinophils # (auto) 0.51 K/uL (0.00-0.50); Eosinophils % (auto) 8.1 %; Hemoglobin 13.4 g/dl (12.0-16.0); Immature Granulocytes # (auto) 0.02 K/uL (0.01-0.20); Immature Granulocytes % (auto) 0.3 %; Lymphocytes # (auto) 1.83 K/uL (1.20-3.40); Lymphocytes % (auto) 29.2 %; Mean Corpuscular Hemoglobin 30.5 pg (25.0-34.0); Mean Corpuscular Hgb Conc 33.5 g/dL (32.0-36.0); Mean Corpuscular Volume 90.9 fL (80.0-100.0); Mean Platelet Volume 11.6 fL (9.4-12.4); Monocytes # (auto) 0.83 K/uL (0.11-0.59); Monocytes % (auto) 13.3 %; Neutrophils # (auto) 3.03 K/uL (1.40-6.50); Neutrophils % (auto) 48.5 %; Platelet Count 215 K/uL (130-400); RDW Coefficient of Variation 12.4 % (11.5-14.5); RDW Standard Deviation 41.2 fL (36.4-46.3); White Blood Count 6.26 K/ul (4.8-10.8)
[2023-06-23 07:14] LABS: BUN Creatinine Ratio 14.4 (10-20); Calcium 10.1 mg/dl (8.6-10.3); Creatinine Clr Calc Pharmacy 44.8 ml/min; Est GFR (African American) 57.1 ml/min; Est GFR (Non-African American) 49.2 ml/min; Potassium 3.6 mmol/L (3.5-5.1)
[2023-06-23] MEDS: INSULIN ASPART PER UNIT CHARGE SC SCH ×4 (09:31→20:26)
[2023-06-23] MEDS: CITALOPRAM 20 MG TAB PO SCH ×2 (09:33→09:43)
[2023-06-23] MEDS: MONTELUKAST SODIUM 10 MG TABLET PO SCH (09:34)
[2023-06-23] MEDS: ASPIRIN 81 MG ECTAB PO SCH (09:35)
[2023-06-23] MEDS: NIFEdipine EXTENDED REL 30 MG TABCR PO SCH (09:36)
[2023-06-23] MEDS: CETIRIZINE HCL 10 MG TABLET PO SCH (09:36)
[2023-06-23] MEDS: FAMOTIDINE 20 MG TAB PO SCH ×2 (09:37→20:28)
[2023-06-23] MEDS: MAGNESIUM OXIDE 400 MG TAB PO SCH (09:37)
[2023-06-23] MEDS: METOPROLOL SUCC 25MG EXT REL TAB PO SCH ×2 (09:37→20:27)
[2023-06-23] MEDS: FLUTICASONE/VILANTEROL 100/25MCG 14 PUFFS/INHALER INH SCH (09:38)
[2023-06-23] MEDS: HEPARIN SOD 5,000 UNIT/0.5 ML VIAL SQ SCH ×2 (09:38→20:25)
[2023-06-23] MEDS ORDERED: bisacodyL 10 MG SUPP PR STA (09:56)
--- NOTE | 2023-06-23 13:10 | Hospitalist Progress Note ---
Date of Service June 23, 2023 Assessment & Plan (1) Labile blood pressure: Plan 72 y/o F with PMH of prior [place], HTN, dyslipidemia, CKD III, COPD, DM II, ADRI, anxiety, obesity presented to ER 1/ with complaint of high blood pressure and headache. Recent admission 05/2023 for hypotension & ADI; and lisinopril and chlorthalidone were held and metoprolol succinate was decreased from 50 mg daily to 12.5 mg twice daily. Follow up with PCP lisinopril 5mg restarted and 25 mg metoprolol BID. Home BP readings remained elevated and pt prescribed lisinopril 10 mg/HCTZ 12.5 mg daily however did not receive yet from mail order pharmacy by the time of presentation to hospital. She is being managed for the following: Hypertensive urgency Labile blood pressure ADI over CKD stage III: Patient presented with high blood pressure 222/147. CT head with no acute finding, CXR with no acute finding. Troponin WNL at presentation. Patient has labile blood pressure; nephrology was consulted. Initially, lisinopril 10 mg and hydrochlorothiazide was started but patient blood pressure decreased along with elevation in the creatinine. Zanaflex was discontinued as it was thought to cause sudden drop in blood pressure As per nephrology.lisinopril and hydrochlorothiazide has been discontinued along with Zanaflex. Plan to continue only with metoprolol and monitor blood pressure for now. Metoprolol with holding parameters. Nifedipine 30 mg added Fall precaution. Hypomagnesemia: Admitting magnesium 1.5, repleted. Monitor replete. Other chronic medical conditions: Continue with/resume home meds as and when able COPD: Stable, no signs of exacerbation. Continue home inhalers Dyslipidemia: Continue home statin T2DM: A1c 5.9 on 06/05/2023. Hold metformin. SSI while in hospital. Heart attack: History of [place] 1996. No chest pain or shortness of breath. Negative troponin at presentation. Continue home aspirin/atorvastatin/metoprolol. Anxiety and depression: Continue home medications, patient follows with psychiatry ADRI: CPAP, 2 L O2 at bedtime. Patient states she has not been using CPAP regularly Acid reflux: Continue Pepcid DVT prophylaxis: Lovenox Full code Follows Dr. Posadas for routine care Disposition; from home. She lives alone. Patient has labile blood pressure with ADI. Will continue monitor to monitor her blood pressure today; obtain BMP tomorrow. Possible discharge in a.m. if patient continues to remain clinically stable. Please note the above document was generated using voice recognition software. It may contain grammatical, syntax or spelling errors. Any formal questions or concerns about the content, text or information contained within the body of this dictation should be directly addressed to the provider for clarification Admission and Anticipated Discharge Date Admission Date: June 19, 2023 Subjective Patient seen and examined at bedside. Comfortable; not in distress. She reports constipation. Denies fever, chills, chest pain, shortness of breath, abdominal pain or urinary symptoms. No significant overnight events Review of Systems Review of Systems: All systems reviewed & are unremarkable except as noted in Subjective Physical Exam Physical Exam: GENERAL: Alert and oriented x3. NAD, on RA. Obese Class II. HEENT: No pallor, no icterus. Pupils equal, round and reactive to light. Oral mucosa moist. NECK: No JVD, no neck masses. HEART: S1 and S2 heard. Regular rate and rhythm. No murmur, no gallop. RESPIRATORY SYSTEM: Normal AP diameter. No accessory muscle use. No wheezing, no crackles. ABDOMEN: Soft, bowel sounds present, nontender, no distention. CENTRAL NERVOUS SYSTEM: No facial droop. Speech is clear. Obeys simple commands. Moves extremities. EXTREMITIES: No edema, no erythema seen. Results & Data Results & Data Vital Signs (Past 12 Hours) Vital Signs Temp Pulse Pulse Resp BP BP Pulse Ox 06/23/23 12:08 36.9 C 79 18 134/78 92 06/23/23 08:22 66 06/23/23 07:32 36.7 C 78 18 119/79 91 06/23/23 02:50 15 O2 Del Method FiO2 06/23/23 12:08 Room Air 06/23/23 08:22 06/23/23 07:32 Room Air 06/23/23 02:50 21
[2023-06-23] MEDS: POLYETHYLENE (MIRALAX) 17 GM PACK PO PRN (13:55)
[2023-06-23] MEDS: ACETAMINOPHEN 325 MG TAB PO PRN (17:52)
[2023-06-23] MEDS: traZODone HCL 50 MG TAB PO SCH (20:25)
[2023-06-23] MEDS: DOXEPIN HCL 25 MG CAPSULE PO SCH (20:26)
[2023-06-23] MEDS: ATORVASTATIN 10 MG TAB PO SCH (20:27)
[2023-06-23] MEDS: FLUTICASONE PROPIONATE NA SPR 16 GM BTL NAE SCH (20:27)
[2023-06-23] MEDS: PERPHENAZINE 4 MG TAB PO SCH (20:28)
[2023-06-23] MEDS: LORazepam 0.5 MG TAB PO PRN (20:38)
[2023-06-24] MEDS: LEVOTHYROXINE SODIUM 125 MCG TABLET PO SCH (06:00)
[2023-06-24 06:23] LABS: Basophils # (auto) 0.04 K/uL (0.00-0.20); Basophils % (auto) 0.5 %; Eosinophils # (auto) 0.37 K/uL (0.00-0.50); Hematocrit (blood only) 35.3 % (37.0-47.0); Hemoglobin 12.3 g/dl (12.0-16.0); Immature Granulocytes # (auto) 0.02 K/uL (0.01-0.20); Immature Granulocytes % (auto) 0.3 %; Lymphocytes # (auto) 2.34 K/uL (1.20-3.40); Lymphocytes % (auto) 31.6 %; Mean Corpuscular Hemoglobin 31.1 pg (25.0-34.0); Mean Corpuscular Hgb Conc 34.8 g/dL (32.0-36.0); Mean Corpuscular Volume 89.4 fL (80.0-100.0); Mean Platelet Volume 11.9 fL (9.4-12.4); Monocytes # (auto) 0.94 K/uL (0.11-0.59); Monocytes % (auto) 12.7 %; Neutrophils % (auto) 49.9 %; Platelet Count 222 K/uL (130-400); RDW Coefficient of Variation 12.6 % (11.5-14.5); Red Blood Count 3.95 M/uL (4.20-5.40); White Blood Count 7.41 K/ul (4.8-10.8)
[2023-06-24 06:35] LABS: BUN Creatinine Ratio 14.8 (10-20); Calcium 9.6 mg/dl (8.6-10.3); Creatinine Clr Calc Pharmacy 34.6 ml/min; Est GFR (African American) 42.4 ml/min; Est GFR (Non-African American) 36.5 ml/min; Potassium 3.8 mmol/L (3.5-5.1)
[2023-06-24] MEDS: INSULIN ASPART PER UNIT CHARGE SC SCH ×3 (07:46→17:03)
[2023-06-24] MEDS: ASPIRIN 81 MG ECTAB PO SCH (08:16)
[2023-06-24] MEDS: MONTELUKAST SODIUM 10 MG TABLET PO SCH (08:16)
[2023-06-24] MEDS: MAGNESIUM OXIDE 400 MG TAB PO SCH (08:17)
[2023-06-24] MEDS: CETIRIZINE HCL 10 MG TABLET PO SCH (08:17)
[2023-06-24] MEDS: FAMOTIDINE 20 MG TAB PO SCH (08:17)
[2023-06-24] MEDS: METOPROLOL SUCC 25MG EXT REL TAB PO SCH (08:17)
[2023-06-24] MEDS: NIFEdipine EXTENDED REL 30 MG TABCR PO SCH (08:17)
[2023-06-24] MEDS: HEPARIN SOD 5,000 UNIT/0.5 ML VIAL SQ SCH (08:19)
[2023-06-24] MEDS: FLUTICASONE/VILANTEROL 100/25MCG 14 PUFFS/INHALER INH SCH (08:20)
[2023-06-24] MEDS ORDERED: CETIRIZINE HCL 10 MG TABLET PO SCH (09:00)
[2023-06-24] MEDS ORDERED: CITALOPRAM 20 MG TAB PO SCH (09:00)
--- NOTE | 2023-06-24 10:18 | Nephrology Progress Note ---
Date of Service June 24, 2023 Assessment & Plan Admission and Anticipated Discharge Date Admission Date: June 19, 2023 Subjective Assessment & Plan (1) ADI (acute kidney injury): Plan: Her renal function is also quite labile. She had near normal kidney function with a creatinine of 1.1 but did go up substantially to 1.98 but now fluctuating with labile BP. Creat up a bit from yesterday from Big drop in BP from the other day. Rapid drop in blood pressure can cause hypoperfusion of the kidney and is enough to cause prerenal type acute renal failure. (2) Labile blood pressure: Plan: given multiple readings of low blood pressure yesterday agree with stopping everything except metoprolol. Would rather tolerate high blood pressure than very low in the short term. for last 24 hrs All BP readings has been good. Would do a 24 hr Ambulatory BP check through nephrology after discharge. so please get nephrology appt after discharge. Nephro nurse will be calling her for Appt to get the 24 hr ambulatory BP machine setup. will be done next week but patient has Transport issues so can be challenging. for now Continue BB and CCB at the current dose. (3) Hypomagnesemia: Plan: slightly low on admission but corrected fairly easily. Continue same for d ischarge also S---BP has been quite labile in the last 4 days--super high then low then normal and high and now seems better last 24 hrs. All BP readings since then has been good. physical examination elderly white female who is not in any respiratory distress. Normal speech and able to give detailed account of her medical history awake alert oriented x3 mucous membrane moist neck is supple no JVD chest bilateral clear to auscultation CVS S1-S2 regular No murmur abdomen is soft nontender obese extremities shows 1+ edema Results & Data Vital Signs (Past 12 Hours) Vital Signs Temp Pulse Pulse Resp BP Pulse Ox O2 Del Method 06/24/23 09:54 Room Air 06/24/23 07:32 36.6 C 69 16 128/75 97 Room Air 06/24/23 05:56 63 06/24/23 03:08 36.6 C 68 18 114/76 94 BiPAP 06/24/23 02:40 16 06/23/23 23:11 36.9 C 79 18 120/76 96 Room Air FiO2 06/24/23 09:54 06/24/23 07:32 06/24/23 05:56 06/24/23 03:08 06/24/23 02:40 21 06/23/23 23:11
--- NOTE | 2023-06-24 12:42 | Discharge Summary ---
Date of Service June 24, 2023 Admission HPI Per Admitting Provider Patient is 72 y/o F with PMH prior IL, HTN, dyslipidemia, CKD III, COPD, DM II, ADRI, anxiety, obesity presented to ER with complaint of high blood pressure and headache. History obtained from patient as well as inpatient and outpatient chart review. Admitted here at [facility] on 06/04/2023-06/10/2023 for hypotension, ADI, slurred speech thought likely secondary to hypotensive episode. During admission her lisinopril and chlorthalidone were held and metoprolol succinate was decreased from 50 mg daily to 12.5 mg twice daily. She was seen at PCPs office 06/11/2023 and had BP of 145/95. She was instructed to start taking 25 mg metoprolol tartrate twice daily and resume her lisinopril at 5 mg daily. Patient unsure if she is taking metoprolol succinate or tartrate 25mg BID. Patient had been taking her BP daily and BPs were running 150s to 170s systolic and 80s to 90s diastolic. Yesterday PCP instructed patient to start lisinopril 10 mg/HCTZ 12.5 mg daily, however prescription was sent to mail order pharmacy and has not received medication yet. Patient presents to ER today with complaint of elevated BP and [place]. States started with frontal and posterior headache last night that has continued this morning. States had nausea this morning and was given Zofran by EMS with resolution of nausea. Denies fever/chills, diaphoresis, V/D/C, dizziness, syncope, vision changes, CP, SOB, orthopnea, palpitations, cough, sore throat, otalgia, rhinorrhea, abdominal pain, paresthesias, weakness, extremity weakness, extremity edema, rashes, urinary symptoms. Admission Exam Per Admitting Provider General: no acute distress, obese Lungs: clear, no respiratory distress, no wheezing/rhonchi/rales CV: RRR, no murmur, no pretibial edema Abd: normal BS, soft, non-tender Ext: no cyanosis, no calf tenderness Neuro: A&O x 3, no focal deficits noted, normal affect Skin: warm, dry Principal Diagnosis Hypertensive urgency ADI on CKD Discharge Exam GENERAL: Alert and oriented x3. NAD, on RA. Obese Class II. HEENT: No pallor, no icterus. Pupils equal, round and reactive to light. Oral mucosa moist. NECK: No JVD, no neck masses. HEART: S1 and S2 heard. Regular rate and rhythm. No murmur, no gallop. RESPIRATORY SYSTEM: Normal AP diameter. No accessory muscle use. No wheezing, no crackles. ABDOMEN: Soft, bowel sounds present, nontender, no distention. CENTRAL NERVOUS SYSTEM: No facial droop. Speech is clear. Obeys simple commands. Moves extremities. EXTREMITIES: No edema, no erythema seen. Discharge Data Allergies Allergy/AdvReac Type Severity Reaction Status Date / Time Sulfa (Sulfonamide Allergy Severe face Verified 05/13/23 14:03 Antibiotics) tongue lips swelling,HEADACHE amoxicillin AdvReac Intermediate YEAST Verified 05/13/23 14:03 INFECTION clavulanic acid AdvReac Intermediate YEAST Verified 05/13/23 14:03 INFECTION codeine AdvReac Mild N/V Verified 05/13/23 14:03 Consultations 06/19/23 13:34 ED Decision to Admit Stat 06/20/23 12:24 Consult Nephrology Routine Ordered Studies 06/19/23 11:53 CT head/brain wo con Stat Hospital Course (1) Labile blood pressure: Plan 72 y/o F with PMH of prior IL, HTN, dyslipidemia, CKD III, COPD, DM II, ADRI, anxiety, obesity presented to ER 1/3 with complaint of high blood pressure and headache. Her blood pressure on presentation was 222/147 CT head on admission did not show any acute finding. Nephrology was consulted for comanagement. Zanaflex was thought to have contributed in labile blood pressure; was discontinued. Nifedipine 30 mg once a day was added to home dose of metoprolol metoprolol. Patient's blood pressure was within normal limits for last 24 hours during the hospitalization. A new prescription for nifedipine was sent. Patient was asked to stop Zanaflex. Patient to follow-up with PCP and nephrology. Please note the above document was generated using voice recognition software. It may contain grammatical, syntax or spelling errors. Any formal questions or concerns about the content, text or information contained within the body of this dictation should be directly addressed to the provider for clarification Total Time Total Time Spent Total Time Spent (In Minutes): 35 Total Time Includes: Examination of the Patient, Discharge Planning, Medication Reconciliation, Communication With Other Providers and Other Discharge Plan Discharge Items Patient Disposition: Home - Self-Care Reason For Visit: HTN Discharge Diagnosis: Hypertensive urgency ADI on CKD Condition on Discharge: Fair Activity: Resume your previous activity Non-emergency contact: Primary Care Provider Call non-emergency contact if: you have any medication questions and your symptoms worsen Follow-up/Referrals: Patti Posadas MD [Primary Care Provider] - (Date & Time 06/27/2023 2:00 PM Provider Patti Posadas MD [facility] ) Diet: Regular Addtl Attending Provider Instructions: You were admitted to the hospital due to high blood pressure. Following medication adjustments are done; 1) stop taking Zanaflex as it can drop your blood pressure. Take extra strength Tylenol for back pain. 2) stop taking lisinopril and hydrochlorothiazide. 3) start taking nifedipine 30 mg once a day. Your blood pressure has been stable on metoprolol 25 mg twice a day and nifedipine. Please continue to take them. You are prescribed milk of magnesia as well to be taken once a day as needed for constipation. Pending Studies at Discharge: No Stand-Alone Forms: My [facility] Smoking Cessation Medications and DC Order Prescriptions: New nifedipine [Procardia XL] 30 mg Tablet Extended Release 24hr 30 mg PO QAM Qty: 30 0RF magnesium hydroxide [Milk of Magnesia] 400 mg/5 mL suspension 5 ml PO DAILY PRN (Reason: stomach upset) Qty: 355 0RF Continued diclofenac sodium 1 % gel 1 g topical BID PRN (Reason: Pain) montelukast 10 mg tablet 10 mg PO QAM hydroxyzine HCl 25 mg tablet 25 mg PO BID PRN (Reason: Anxiety) ascorbic acid (vitamin C) 1,000 mg tablet 1 g PO DAILY vitamin B complex Capsule 1 cap PO DAILY perphenazine 2 mg Tablet 4 mg PO HS trazodone 50 mg Tablet 50 mg PO HS cetirizine 10 mg Tablet 10 mg PO QAM atorvastatin 10 mg Tablet 10 mg PO HS doxepin 25 mg Capsule 25 mg PO HS levothyroxine 125 mcg Capsule 125 mcg PO DAILYBB famotidine 20 mg Tablet 20 mg PO AMHS metformin 500 mg tablet 500 mg PO BIDM citalopram 10 mg tablet 10 mg PO QAM aspirin 81 mg Tablet,Delayed Release (Dr/Ec) 81 mg PO QAM citalopram 20 mg tablet 20 mg PO QAM lorazepam 0.5 mg tablet 0.5 mg PO HS PRN (Reason: as directed) vitamin E (dl, acetate) 180 mg (400 unit) capsule 180 mg PO BID turmeric-turmeric root extract 450-50 mg capsule 1 cap PO QAM omega 2-dys-tdi-fish oil 300 mg (120 mg- 180mg)-1,000 mg capsule 1 cap PO BID fluticasone propionate 50 mcg/actuation spray,suspension 1 spray INTRANASAL QPM magnesium oxide 400 mg (241.3 mg magnesium) Tablet 400 mg PO QAM Qty: 30 0RF acetaminophen 650 mg tablet extended release 650 mg PO Q8H PRN (Reason: fever or pain) Qty: 60 0RF fluticasone propion-salmeterol [Advair Diskus] 250-50 mcg/dose blister with device 1 inh INHALATION BID metoprolol succinate 25 mg tablet extended release 24 hr 25 mg PO BID Discontinued lisinopril 5 mg tablet 5 mg PO QAM Patient Comments: Took this AM, new medication lis/hctz wont be in until saturday lisinopril-hydrochlorothiazide 10-12.5 mg tablet 0 tab PO DAILY Patient Comments: hasnt started yet because it wont be in until saturday Rx Instructions: Has not started yet tizanidine 4 mg tablet 4 mg PO BID Discharge Orders: Discharge Order (Routine); Ordered 06/24/23 Ordered By: Konstantin Cooper Admission Data Admit Date/Time: 06/19/23 13:59 Attending Provider: Konstantin Cooper Admit Provider: Tamela Mohan Primary Care Provider: Patti Posadas Other Providers: Tamela Mohan; Alem Felix Rishikesh
[2023-06-24] MEDS: ACETAMINOPHEN 325 MG TAB PO PRN (13:49)
[2023-06-24] MEDS: POLYETHYLENE (MIRALAX) 17 GM PACK PO PRN (13:52)
== END 2023-06-24 18:13 | disposition home health service (06) | DRG 305 ==
LOC: ED 11:32 → SUATTDRO 13:59 → EDINP 13:59 → 2N 16:34

== ENCOUNTER 2023-11-06 15:27 | Inpatient (IN) ==
--- NOTE | 2023-11-06 15:42 | Emergency Department Note ---
Impression & Plan Hypotensive episode, Dizziness ED Provider Note Provider: Biju Marmolejo MD DATE OF SERVICE: 11/06/2023 CHIEF COMPLAINT: Dizzy, low blood pressure HISTORY OF PRESENT ILLNESS: Patient is a 72-year-old female history of CKD, diabetes, COPD, hypothyroidism, labile blood pressure presenting here today stating that this afternoon she began to feel dizzy and off. Home health assisted her with taking her blood pressure it was unreadable. EMS activated. No falls reported. Did eat okay earlier. No recent change of blood pressure medications has been several months. Has a history of having high and low blood pressures. Received a liter of IV fluid prior to arrival and states she still feels a bit dizzy upon arrival. Denies any chest pain or shortness of breath. Denies any significant headache or numbness or tingling. No fevers reported. No swelling reported. PAST MEDICAL HISTORY: As noted above MEDICATIONS: Reviewed home medication list SOCIAL HISTORY: Lives by herself. PHYSICAL EXAM: GENERAL: alert and oriented in no acute distress on stretcher Head: normocephalic and atraumatic EYES: No injection, discharge or icterus. PERRL, EOMI. NECK: Trachea midline. Supple. ENT: Mucous membranes pink and moist. LUNGS: Airway patent. No retractions. Breath sounds clear with good air entry bilaterally. HEART: Regular rate and rhythm. No chest wall tenderness ABDOMEN: Soft and non-tender, without guarding or rebound. SKIN: Acyanotic, warm, dry, without rashes EXTREMITIES: Without swelling, tenderness or deformity NEUROLOGICAL: No focal deficits. No aphasia. No facial droop or slurred speech. Normal strength and tone in the extremities. Sensation to gross touch normal. EK bpm normal sinus rhythm. No PVC or PAC. No acute ST segment elevation or depression with a QTc of 458. Some artifact in lead V3. CONTINUOUS CARDIAC MONITORING: was ordered and showed a heart rate of 60s bpm in normal sinus rhythm Patient's laboratory studies and imaging reviewed. Differential includes Infection, dehydration, metabolic abnormality, hypo/hyperglycemia, electrolyte disturbance, anemia, hypoxia, cardiac sources, intracerebral event/neurologic, as well as other pathologies. IMPRESSION/MEDICAL DECISION MAKING: Did receive a liter of IV fluid prior to arrival. Blood pressure still with systolics in the 80s upon arrival but not tachycardic. Patient is on beta- blockade and a sinus rhythm. No recent medication changes but is a history of significantly labile blood pressure. Denies recent infectious symptoms. Not having significant focal numbness or weakness but will obtain a head CT given her dizziness complaint to exclude occult intracranial abnormality. Will gently given additional 500 cc of IV fluid but will to be careful to avoid fluid overload. Blood work here without significant anemia or leukocytosis. Chemistries with borderline hyponatremia 135. Creatinine 1.45 near baseline of 1.2. BUN not elevated. No significant LFT abnormality. Troponin normal. Patient after receiving a total of 1.5 L of IV fluid in short order today still with a blood pressure of 80/56 and feeling dizzy. Discussed with the patient options at this point given that she is still symptomatic would recommend that we bring her to the hospital. She lives by herself and is a high fall risk. Patient agreeable to hospitalist team contacted. DIAGNOSIS: Acute hypotension, dizziness DISPOSITION: Hospitalist will evaluate Patient was agreeable with this plan. Past Med/Surg History Problem List Dizziness (Acute) Neuroforaminal stenosis of lumbar spine Protrusion of lumbar intervertebral disc Labile blood pressure Acid reflux well controlled ADRI (obstructive sleep apnea) Hypomagnesemia (Acute) Failure of outpatient treatment (Acute) Headache (Acute) Hypertension (Acute) Hypomagnesemia CKD (chronic kidney disease), stage III Hypertensive urgency ADI (acute kidney injury) (Acute) Slurred speech (Acute) Acute dehydration (Acute) Acute hypotension (Acute) Protrusion of intervertebral disc of thoracic region Degenerative spondylolisthesis Lumbar stenosis with neurogenic claudication Cervical pain Greater trochanteric bursitis of left hip History of heart attack 1996- medically managed Hypotensive episode (Acute) Diabetes mellitus, type II COPD (chronic obstructive pulmonary disease) Dyslipidemia Nocturnal hypoxemia 2L O2 HS Hypertension Hypothyroidism Anxiety and depression History of total left hip arthroplasty (~11/2019) Medical History (Updated 11/06/23 @ 18:16 by Biju Marmolejo M.D.) Obesity Fatty liver Arthritis Degenerative disc disease Sciatica Thyroid enlarged no dysphagia Asthma mild, "well controlled and stable", rare inhaler use Surgical History History of colonoscopy History of left cataract surgery History of right cataract surgery History of right hip replacement History of hysterectomy History of hernia repair History of cardiac cath FOLLOWING HEART ATTACK, NO FINDINGS 1996 Family History Mother Family history of diabetes mellitus Aunt Family history of diabetes mellitus Son Family history of colon cancer Social History Smoking Status: Unknown if ever smoked Tobacco Type: Cigarettes Second Hand Exposure: No; Do You Dip or Chew Tobacco: No; Hx Alcohol Use: No Hx Substance Use: No Preferred Language: Qatari Communication Ability: Effective Visual Impairment: No Limitations Hearing Ability: Normal Group Work Program Aide Required: No Beliefs That Will Affect Care: None Current Living Situation: Alone Current Living Situation Comment: [facility], independent living current occupational status: retired Feels Safe at Home: Yes Safety Concerns Comment: office of aging is visiting her tomorrow regarding getting more help @ home Assistive Devices: Cane, CPAP, Raised Toilet Seat, Walker and Wheelchair Allergies Allergies Allergy/AdvReac Type Severity Reaction Status Date / Time Sulfa (Sulfonamide Allergy Severe face Verified 11/06/23 17:42 Antibiotics) tongue lips swelling,HEADACHE amoxicillin AdvReac Intermediate YEAST Verified 11/06/23 17:42 INFECTION clavulanic acid AdvReac Intermediate YEAST Verified 11/06/23 17:42 INFECTION codeine AdvReac Intermediate N/V Verified 11/06/23 17:42 Home Meds Home Medications Medication Instructions Recorded Confirmed atorvastatin 10 mg tablet 10 mg PO HS 08/14/19 11/06/23 cetirizine 10 mg tablet 10 mg PO QAM 08/14/19 11/06/23 doxepin 25 mg capsule 25 mg PO HS 08/14/19 11/06/23 levothyroxine 125 mcg capsule 125 mcg PO DAILYBB 08/14/19 11/06/23 perphenazine 2 mg tablet 6 mg PO HS 08/14/19 11/06/23 famotidine 20 mg tablet 20 mg PO AMHS 08/19/19 11/06/23 ascorbic acid (vitamin C) 1,000 mg 1 g PO DAILY 05/13/23 11/06/23 tablet diclofenac sodium 1 % topical gel 1 g topical BID PRN Pain 05/13/23 11/06/23 hydroxyzine HCl 25 mg tablet 25 mg PO BID PRN Anxiety 05/13/23 11/06/23 montelukast 10 mg tablet 10 mg PO QAM 05/13/23 11/06/23 vitamin B complex 1 cap PO DAILY 05/13/23 11/06/23 aspirin 81 mg tablet,delayed 81 mg PO QAM 06/04/23 11/06/23 release citalopram 10 mg tablet 10 mg PO QAM 06/04/23 11/06/23 citalopram 20 mg tablet 20 mg PO QAM 06/04/23 11/06/23 fluticasone propionate 50 1 spray intranasal QPM 06/04/23 11/06/23 mcg/actuation nasal spray,suspension lorazepam 0.5 mg tablet 0.5 mg PO HS PRN as directed 06/04/23 11/06/23 metformin 500 mg tablet 500 mg PO BIDM 06/04/23 11/06/23 omega-3 300 mg-dha 120 mg-epa 180 1 cap PO BID 06/04/23 11/06/23 mg-fish oil 1,000 mg capsule turmeric 450 mg-turmeric root 1 cap PO QAM 06/04/23 11/06/23 extract 50 mg capsule vitamin E (dl, acetate) 180 mg 180 mg PO BID 06/04/23 11/06/23 (400 unit) capsule fluticasone 250 mcg-salmeterol 50 1 inh inhalation BID 06/19/23 11/06/23 mcg/dose blistr powdr for inhalation (Advair Diskus) metoprolol succinate 25 mg 25 mg PO BID 06/19/23 11/06/23 tablet,extended release 24 hr midodrine 2.5 mg tablet 2.5 mg PO BID PRN NEEDED 09/03/23 11/06/23 nystatin 100,000 unit/gram topical 1 applic topical DIRECTED PRN 09/03/23 11/06/23 powder (Nystop) Skin Irritation tizanidine 4 mg tablet 4 mg PO Q8H PRN MUSCLE SPASMS 09/03/23 11/06/23 diazepam 5 mg tablet 5 mg PO .COMPLEX PRN PRIOR TO 11/06/23 11/06/23 PROCEDURE mirtazapine 30 mg tablet 30 mg PO HS 11/06/23 11/06/23 Previous Rx's Medication Instructions Recorded acetaminophen 650 mg 650 mg PO Q8H PRN fever or pain 06/10/23 tablet,extended release #60 tabs magnesium oxide 400 mg (241.3 mg 400 mg PO QAM #30 tabs 06/10/23 magnesium) tablet nifedipine 30 mg tablet,extended 30 mg PO QAM #30 tabs 06/24/23 release 24 hr (Procardia XL) Results & Data (ED) Vital Signs Vital Signs - 24 hr 11/06/23 14:39 11/06/23 15:41 11/06/23 15:57 Temperature 36.7 C Temperature Source Oral Pulse Rate 64 64 Respiratory Rate 16 Blood Pressure 81/53 L Blood Pressure Mean 62 Pulse Oximetry 96 Oxygen Delivery Method Room Air Room Air Sepsis Recent Fever Within 48 Hours No Sepsis New/Unexplained Change in Mental Status No Sepsis Action Taken by Nursing No Action Required Laboratory Data 11/06/23 15:38 11/06/23 15:38 Lab Results 11/06/23 11/06/23 Range/Units 15:38 16:01 WBC 9.63 (4.8-10.8) K/ul RBC 4.06 L (4.20-5.40) M/uL Hgb 12.0 (12.0-16.0) g/dl Hct 35.5 L (37.0-47.0) % MCV 87.4 (80.0-100.0) fL MCH 29.6 (25.0-34.0) pg MCHC 33.8 (32.0-36.0) g/dL RDW Std Deviation 43.6 (36.4-46.3) fL RDW Coeff of Jennifer 13.6 (11.5-14.5) % Plt Count 225 (130-400) K/uL MPV 11.5 (9.4-12.4) fL Immature Gran % (Auto) 0.8 % Neut % (Auto) 54.0 % Lymph % (Auto) 27.7 % Lanier % (Auto) 12.9 % Eos % (Auto) 4.0 % Baso % (Auto) 0.6 % Neut # (Auto) 5.19 (1.40-6.50) K/uL Lymph # (Auto) 2.67 (1.20-3.40) K/uL Lanier # (Auto) 1.24 H (0.11-0.59) K/uL Eos # (Auto) 0.39 (0.00-0.50) K/uL Baso # (Auto) 0.06 (0.00-0.20) K/uL Immature Gran # (Auto) 0.08 (0.01-0.20) K/uL Sodium 135 L (136-145) mmol/L Potassium 3.9 (3.5-5.1) mmol/L Chloride 101 (98-107) mmol/L Carbon Dioxide 26 (21-32) mmol/L Anion Gap 8 (3-11) BUN 20 (6-23) mg/dl Creatinine 1.45 H (0.6-1.2) mg/dl Est Cr Clr Drug Dosing 37.9 ml/min Est GFR ( Amer) 41.3 ml/min Est GFR (Non-Af Amer) 35.6 ml/min BUN/Creatinine Ratio 13.8 (10-20) Glucose 118 H (70-99(Fasting)) mg/dl Calcium 8.5 L (8.6-10.3) mg/dl Magnesium 1.9 (1.7-2.4) mg/dl Total Bilirubin 0.2 (0.2-1.0) mg/dl AST 18 (13-39) U/L ALT 24 (7-52) U/L Alkaline Phosphatase 58 (34-104) U/L Troponin I High Sens 3.7 (0-14) pg/ml Total Protein 6.1 (6.0-8.3) gm/dl Albumin 3.6 (3.4-5.0) gm/dl Globulin 2.5 (2.5-4.0) gm/dl Albumin/Globulin Ratio 1.4 (0.9-2) TSH 3.161 (0.300-4.500) uIu/ml Adenovirus (PCR) Not Detected (NotDetected) B. pertussis DNA (PCR) Not Detected (NotDetected) B.parapertussis DNA PCR Not Detected (NotDetected) C. pneumoniae DNA (PCR) Not Detected (NotDetected) Coronavirus OC43 (PCR) Not Detected (NotDetected) Coronavirus HKU1 (PCR) Not Detected (NotDetected) Coronavirus 229E (PCR) Not Detected (NotDetected) SARS-CoV-2 (PCR) Not Detected (NotDetected) Coronavirus NL63 (PCR) Not Detected (NotDetected) Human Metapneumovir PCR Not Detected (NotDetected) Influenza Type A (PCR) Not Detected (NotDetected) Influenza Type B (PCR) Not Detected (NotDetected) M. pneumoniae (PCR) Not Detected (NotDetected) Parainfluenza 1 (PCR) Not Detected (NotDetected) Parainfluenza 2 (PCR) Not Detected (NotDetected) Parainfluenza 3 (PCR) Not Detected (NotDetected) Parainfluenza 4 (PCR) Not Detected (NotDetected) RSV (PCR) Not Detected (NotDetected) Entero/Rhino (PCR) Not Detected (NotDetected) Administered Medications Discontinued Medications Sodium Chloride (Nss) 500 mls @ 999 mls/hr IV .Q31M EROS Stop: 11/06/23 16:15 Last Admin: 11/06/23 16:03 Dose: 999 mls/hr Documented By: [facility] Imaging Data Radiologist's Impression: Chest X-Ray 11/06/23 15:40 XR chest 1V portable CLINICAL HISTORY: weakness TECHNIQUE: Single frontal radiograph of the chest was obtained. Comparison: Comparison is made to chest radiograph 07/08/2023 FINDINGS: No lines and tubes are seen. The cardiomediastinal silhouette is normal. The lungs are clear. No evidence of pleural effusion or pneumothorax. IMPRESSION: No acute chest disease. ACT 112: Negative or not required by law. Electronically signed by: Yariel Aparicio M.D. 11/06/2023 4:[address] 11/06/23 15:41 CT head/brain wo con CLINICAL HISTORY: dizzy Technique: Contiguous axial CT images of the head were acquired from the base of the skull to the vertex without intravenous contrast administration. Images were viewed in brain, subdural and bone windows. Automated dose lowering techniques and/or adjustment according to patient size were utilized for this exam. Comparison: Comparison is made to CT head 06/19/2023 Findings: The ventricles, basal cisterns, and cerebral sulci are normal. There is no acute intracranial hemorrhage or evidence of acute territorial infarction. Neither mass effect, shift of the midline structures, nor abnormal extra-axial fluid collections are shown. Imaged portions of the paranasal sinuses and mastoid air cells are clear. The orbits appear normal. There are no acute fractures of the calvaria or scalp swelling. Impression: No acute intracranial hemorrhage, no evidence of acute territorial infarction or other acute intracranial disease process. ACT 112: Negative or not required by law. Electronically signed by: Yariel Aparicio M.D. 11/06/2023 4:52 PM Discharge Plan Visit Data Chief Complaint: Hypotension Stated Complaint: HYPOGLYCEMIA ED Provider: Biju Marmolejo Discharge Problem: Hypotensive episode, Dizziness Patient Disposition: Being Evaluated by Hospitalist Forms Stand Alone Forms: [facility] Prescriptions Prescriptions: No Action diclofenac sodium 1 % gel 1 g topical BID PRN (Reason: Pain) montelukast 10 mg tablet 10 mg PO QAM hydroxyzine HCl 25 mg tablet 25 mg PO BID PRN (Reason: Anxiety) ascorbic acid (vitamin C) 1,000 mg tablet 1 g PO DAILY vitamin B complex Capsule 1 cap PO DAILY tizanidine 4 mg tablet 4 mg PO Q8H PRN (Reason: MUSCLE SPASMS) midodrine 2.5 mg tablet 2.5 mg PO BID PRN (Reason: NEEDED) Rx Instructions: for orthostatic hypotension < 80/50 nystatin [Nystop] 100,000 unit/gram powder 1 applic topical DIRECTED PRN (Reason: Skin Irritation) perphenazine 2 mg Tablet 6 mg PO HS cetirizine 10 mg Tablet 10 mg PO QAM atorvastatin 10 mg Tablet 10 mg PO HS doxepin 25 mg Capsule 25 mg PO HS levothyroxine 125 mcg Capsule 125 mcg PO DAILYBB famotidine 20 mg Tablet 20 mg PO AMHS metformin 500 mg tablet 500 mg PO BIDM citalopram 10 mg tablet 10 mg PO QAM Rx Instructions: TOTAL DOSE 30 MG--TAKES WITH 20 MG TAB. aspirin 81 mg Tablet,Delayed Release (Dr/Ec) 81 mg PO QAM citalopram 20 mg tablet 20 mg PO QAM Rx Instructions: TOTAL DOSE 30 MG--TAKES WITH 10 MG TAB. lorazepam 0.5 mg tablet 0.5 mg PO HS PRN (Reason: as directed) vitamin E (dl, acetate) 180 mg (400 unit) capsule 180 mg PO BID turmeric-turmeric root extract 450-50 mg capsule 1 cap PO QAM omega 2-fua-vmi-fish oil 300 mg (120 mg- 180mg)-1,000 mg capsule 1 cap PO BID fluticasone propionate 50 mcg/actuation spray,suspension 1 spray INTRANASAL QPM magnesium oxide 400 mg (241.3 mg magnesium) Tablet 400 mg PO QAM Qty: 30 0RF acetaminophen 650 mg tablet extended release 650 mg PO Q8H PRN (Reason: fever or pain) Qty: 60 0RF fluticasone propion-salmeterol [Advair Diskus] 250-50 mcg/dose blister with device 1 inh INHALATION BID metoprolol succinate 25 mg tablet extended release 24 hr 25 mg PO BID nifedipine [Procardia XL] 30 mg Tablet Extended Release 24hr 30 mg PO QAM Qty: 30 0RF mirtazapine 30 mg tablet 30 mg PO HS diazepam 5 mg tablet 5 mg PO .COMPLEX PRN (Reason: PRIOR TO PROCEDURE) Rx Instructions: 5 mg PO; 1 tab PO qhs night prior, then 1.5 hours before procedure, then may repeat 0.5 hours prior to procedure; Referrals Referrals: Patti Posadas MD [Primary Care Provider] -
[2023-11-06] MEDS: SODIUM CHLORIDE 0.9% 500 ML IV SCH (16:03)
[2023-11-06 16:11] LABS: Basophils # (auto) 0.06 K/uL (0.00-0.20); Basophils % (auto) 0.6 %; Eosinophils # (auto) 0.39 K/uL (0.00-0.50); Hematocrit (blood only) 35.5 % (37.0-47.0); Immature Granulocytes # (auto) 0.08 K/uL (0.01-0.20); Immature Granulocytes % (auto) 0.8 %; Lymphocytes # (auto) 2.67 K/uL (1.20-3.40); Lymphocytes % (auto) 27.7 %; Mean Corpuscular Hemoglobin 29.6 pg (25.0-34.0); Mean Corpuscular Hgb Conc 33.8 g/dL (32.0-36.0); Mean Corpuscular Volume 87.4 fL (80.0-100.0); Mean Platelet Volume 11.5 fL (9.4-12.4); Monocytes # (auto) 1.24 K/uL (0.11-0.59); Monocytes % (auto) 12.9 %; Neutrophils # (auto) 5.19 K/uL (1.40-6.50); Platelet Count 225 K/uL (130-400); RDW Coefficient of Variation 13.6 % (11.5-14.5); RDW Standard Deviation 43.6 fL (36.4-46.3); Red Blood Count 4.06 M/uL (4.20-5.40); White Blood Count 9.63 K/ul (4.8-10.8)
--- NOTE | 2023-11-06 16:29 | XRay Report ---
XR chest 1V portable CLINICAL HISTORY: weakness TECHNIQUE: Single frontal radiograph of the chest was obtained. Comparison: Comparison is made to chest radiograph 07/08/2023 FINDINGS: No lines and tubes are seen. The cardiomediastinal silhouette is normal. The lungs are clear. No evid ence of pleural effusion or pneumothorax. IMPRESSION: No acute chest disease. ACT 112: Negative or not required by law. Electronically signed by: Yariel Aparicio M.D. 11/06/2023 4:27 PM
[2023-11-06 16:35] LABS: Albumin Globulin Ratio 1.4 (0.9-2); Albumin Level 3.6 gm/dl (3.4-5.0); BUN Creatinine Ratio 13.8 (10-20); Bilirubin,Total 0.2 mg/dl (0.2-1.0); Calcium 8.5 mg/dl (8.6-10.3); Creatinine Clr Calc Pharmacy 37.9 ml/min; Est GFR (African American) 41.3 ml/min; Est GFR (Non-African American) 35.6 ml/min; Globulin 2.5 gm/dl (2.5-4.0); Magnesium 1.9 mg/dl (1.7-2.4); Potassium 3.9 mmol/L (3.5-5.1); Total Protein 6.1 gm/dl (6.0-8.3)
[2023-11-06 16:41] LABS: Troponin I High Sensitivity 3.7 pg/ml (0-14)
--- NOTE | 2023-11-06 16:47 | Electrocardiogram Report ---
Test Reason : Blood Pressure : / mmHG Vent. Rate : 063 BPM Atrial Rate : 063 BPM P-R Int : 156 ms QRS Dur : 066 ms QT Int : 448 ms P-R-T Axes : 039 025 034 degrees QTc Int : 458 ms Normal sinus rhythm Normal ECG When compared with ECG of 08-JUL-2023 11:05, No significant change was found Confirmed by Willie Mitchell ([id number]) on 11/06/2023 4:47:02 PM Referred By: Confirmed By:Willie Mitchell
[2023-11-06 16:50] LABS: Thyroid Stimulating Hormone 3.161 uIu/ml (0.300-4.500)
--- NOTE | 2023-11-06 16:53 | CT Scan Report ---
CT head/brain wo con CLINICAL HISTORY: dizzy Technique: Contiguous axial CT images of the head were acquired from the base of the skull to the sweta karolina without intravenous contrast administration. Images were viewed in brain, subdural and bone [facility]. Automated dose lowering techniques and/or adjustment according to patient size were utilized for this exam. Comparison: Comparison is made to CT head 06/19/2023 Findings: The ventricles, basal cisterns, and cerebral sulci are normal. There is no acute intracranial hemorrh age or evidence of acute territorial infarction. Neither mass effect, shift of the midline structures , nor abnormal extra-axial fluid collections are shown. Imaged portions of the paranasal sinuses and mastoid air cells are clear. The orbits appear normal. There are no acute fractures of the calvaria or scalp swelling. Impression: No acute intracranial hemorrhage, no evidence of acute territorial infarction or other acute intracra nial disease process. ACT 112: Negative or not required by law. Electronically signed by: Yariel Aparicio M.D. 11/06/2023 4:52 PM
[2023-11-06 17:28] LABS: Adenovirus PCR Not Detected (NotDetected); Bordetella parapertussis PCR Not Detected (NotDetected); Bordetella pertussis PCR Not Detected (NotDetected); Chlamydia pneumoniae PCR Not Detected (NotDetected); Coronavirus 229E PCR Not Detected (NotDetected); Coronavirus CoV-2 (COVID19)PCR Not Detected (NotDetected); Coronavirus HKU1 PCR Not Detected (NotDetected); Coronavirus NL63 PCR Not Detected (NotDetected); Coronavirus OC43PCR Not Detected (NotDetected); Human Metapneumovirus PCR Not Detected (NotDetected); Influenza A PCR Not Detected (NotDetected); Influenza B PCR Not Detected (NotDetected); Mycoplasma pneumoniae PCR Not Detected (NotDetected); Parainfluenza Virus 1 PCR Not Detected (NotDetected); Parainfluenza Virus 2 PCR Not Detected (NotDetected); Parainfluenza Virus 3 PCR Not Detected (NotDetected); Parainfluenza Virus 4 PCR Not Detected (NotDetected); Respiratory Syncytial VirusPCR Not Detected (NotDetected); Rhinovirus/Enterovirus PCR Not Detected (NotDetected)
--- NOTE | 2023-11-06 17:41 | History & Physical Report ---
Date of Service November 06, 2023 Assessment & Plan (1) Dizziness: (2) Symptomatic hypotension: (3) Labile blood pressure: (4) Hypertension: (5) CKD (chronic kidney disease), stage III: (6) Diabetes mellitus, type II: (7) COPD (chronic obstructive pulmonary disease): (8) Nocturnal hypoxemia: (9) Hypertension: (10) Hypothyroidism: (11) Anxiety and depression: Plan: This is a 72yo F with a PMH of orthostatic hypotension, DM II, dyslipidemia, COPD, nocturnal hypoxemia, CKD III, depression, GERARDO insomnia and other medical problems listed below who presents with dizziness she noticed this afternoon in the setting of labile hypotension. Symptomatic hypotension Labile blood pressure Fatigued and dizzy earlier, BP unreadable with home cuff. EMS read initial SBP in 50s -> improved to 70s following 500ml NSS bolus In ED, BP improved to 115/72 following 1.5 L total volume. Will continue gentle fluids overnight Denies any recent medication changes aside from increased mirtazapine dose - chronically on significant amt of psych meds - citalopram, doxepin, hydroxyzine, mirtazapine, perphenazine - ? contributing factor (psych recently dc'd trazodone) Continue gentle fluids overnight Cont. Toprol with hold parameters, hold nifedipine for now Continue PRN midodrine BID per home parameters Orthostatics Fall precautions PT/OT evaluations as patient lives alone Diabetes mellitus, type II A1c: 6.Jul, repeat in AM Hold home agents SSI while in-patient BSG AC HS CKD III Elevated Cr 1.45 on admission (Cr 1.2-1.3 baseline) Expect improvement with fluids Monitor daily BMP COPD (chronic obstructive pulmonary disease) No signs exacerbation Continue home inhalers Dyslipidemia Continue atorvastatin CAD History of [place] [id number] Continue aspirin, atorvastatin, Toprol Anxiety Depression Continue home medications Follows with psychiatry, per patient attempting to wean med regimen as there is concern for side effect profile Nocturnal hypoxemia ADRI Continue 2L O2 HS DVT Ppx: SQ heparin Code status: FULL PCP: Katharina Dispo: med tele Patient seen in collaboration with Dr. Enamorado. Please see addendum. I spent a total of 75 minutes coordinating, documenting, and providing care for this patient excluding time spent in the performance of separately billed services. History of Present Illness Chief Complaint: lightheadedness, labile BP Primary Care Provider: Patti Posadas MD This is a 72yo F with a PMH of orthostatic hypotension, DM II, dyslipidemia, COPD, nocturnal hypoxemia, CKD III, depression, GERARDO insomnia and other medical problems listed below who presents with dizziness she noticed this afternoon. Has labile hypertension that is known. Earlier today took her BP and SBP in 160s. Then when she felt tired and dizzy in the afternoon, the home health aid took BP and it was unreadable and patient was brought in by EMS. SBP initially in 50s improved to 70s after 500ml bolus en route. After a total of 1.5 L given this afternoon, SBP improved to 100s. Has been admitted for labile HTN in the past. Denies any recent medication changes aside from increased mirtazapine dose. Usually takes PRN midodrine a few times per week but felt worse today with her low BP. Baseline Cr ~ 1.2-1.3. + congestion. No F/C, headache, CP, SOB, N/V, abd pain, dysuria, diarrhea or constipation. Allergies Allergy/AdvReac Type Severity Reaction Status Date / Time Sulfa (Sulfonamide Allergy Severe face Verified 11/06/23 17:42 Antibiotics) tongue lips swelling,HEADACHE amoxicillin AdvReac Intermediate YEAST Verified 11/06/23 17:42 INFECTION clavulanic acid AdvReac Intermediate YEAST Verified 11/06/23 17:42 INFECTION codeine AdvReac Intermediate N/V Verified 11/06/23 17:42 Home Medications Medication Instructions Recorded Confirmed Type atorvastatin 10 mg tablet 10 mg PO HS 08/14/19 11/06/23 History cetirizine 10 mg tablet 10 mg PO QAM 08/14/19 11/06/23 History doxepin 25 mg capsule 25 mg PO HS 08/14/19 11/06/23 History levothyroxine 125 mcg capsule 125 mcg PO DAILYBB 08/14/19 11/06/23 History perphenazine 2 mg tablet 6 mg PO HS 08/14/19 11/06/23 History famotidine 20 mg tablet 20 mg PO AMHS 08/19/19 11/06/23 History ascorbic acid (vitamin C) 1,000 mg 1 g PO DAILY 05/13/23 11/06/23 History tablet diclofenac sodium 1 % topical gel 1 g topical BID PRN Pain 05/13/23 11/06/23 History hydroxyzine HCl 25 mg tablet 25 mg PO BID PRN Anxiety 05/13/23 11/06/23 History montelukast 10 mg tablet 10 mg PO QAM 05/13/23 11/06/23 History vitamin B complex 1 cap PO DAILY 05/13/23 11/06/23 History aspirin 81 mg tablet,delayed 81 mg PO QAM 06/04/23 11/06/23 History release citalopram 10 mg tablet 10 mg PO QAM 06/04/23 11/06/23 History citalopram 20 mg tablet 20 mg PO QAM 06/04/23 11/06/23 History fluticasone propionate 50 1 spray intranasal QPM 06/04/23 11/06/23 History mcg/actuation nasal spray,suspension lorazepam 0.5 mg tablet 0.5 mg PO HS PRN as directed 06/04/23 11/06/23 History metformin 500 mg tablet 500 mg PO BIDM 06/04/23 11/06/23 History omega-3 300 mg-dha 120 mg-epa 180 1 cap PO BID 06/04/23 11/06/23 History mg-fish oil 1,000 mg capsule turmeric 450 mg-turmeric root 1 cap PO QAM 06/04/23 11/06/23 History extract 50 mg capsule vitamin E (dl, acetate) 180 mg 180 mg PO BID 06/04/23 11/06/23 History (400 unit) capsule acetaminophen 650 mg 650 mg PO Q8H PRN fever or pain 06/10/23 11/06/23 Rx tablet,extended release #60 tabs magnesium oxide 400 mg (241.3 mg 400 mg PO QAM #30 tabs 06/10/23 11/06/23 Rx magnesium) tablet fluticasone 250 mcg-salmeterol 50 1 inh inhalation BID 06/19/23 11/06/23 History mcg/dose blistr powdr for inhalation (Advair Diskus) metoprolol succinate 25 mg 25 mg PO BID 06/19/23 11/06/23 History tablet,extended release 24 hr nifedipine 30 mg tablet,extended 30 mg PO QAM #30 tabs 06/24/23 11/06/23 Rx release 24 hr (Procardia XL) midodrine 2.5 mg tablet 2.5 mg PO BID PRN NEEDED 09/03/23 11/06/23 History nystatin 100,000 unit/gram topical 1 applic topical DIRECTED PRN 09/03/23 11/06/23 History powder (Nystop) Skin Irritation tizanidine 4 mg tablet 4 mg PO Q8H PRN MUSCLE SPASMS 09/03/23 11/06/23 History diazepam 5 mg tablet 5 mg PO .COMPLEX PRN PRIOR TO 11/06/23 11/06/23 History PROCEDURE mirtazapine 30 mg tablet 30 mg PO HS 11/06/23 11/06/23 History Past Med/Surg History Problem List Symptomatic hypotension Dizziness (Acute) Neuroforaminal stenosis of lumbar spine Protrusion of lumbar intervertebral disc Labile blood pressure Acid reflux well controlled ADRI (obstructive sleep apnea) Hypomagnesemia (Acute) Failure of outpatient treatment (Acute) Headache (Acute) Hypertension (Acute) Hypomagnesemia CKD (chronic kidney disease), stage III Hypertensive urgency ADI (acute kidney injury) (Acute) Slurred speech (Acute) Acute dehydration (Acute) Acute hypotension (Acute) Protrusion of intervertebral disc of thoracic region Degenerative spondylolisthesis Lumbar stenosis with neurogenic claudication Cervical pain Greater trochanteric bursitis of left hip History of heart attack 1996- medically managed Hypotensive episode (Acute) Diabetes mellitus, type II COPD (chronic obstructive pulmonary disease) Dyslipidemia Nocturnal hypoxemia 2L O2 HS Hypertension Hypothyroidism Anxiety and depression History of total left hip arthroplasty (~11/2019) Medical History Obesity Fatty liver Arthritis Degenerative disc disease Sciatica Thyroid enlarged no dysphagia Asthma mild, "well controlled and stable", rare inhaler use Surgical History History of colonoscopy History of left cataract surgery History of right cataract surgery History of right hip replacement History of hysterectomy History of hernia repair History of cardiac cath FOLLOWING HEART ATTACK, NO FINDINGS 1996 Family History Mother Family history of diabetes mellitus Aunt Family history of diabetes mellitus Son Family history of colon cancer Social History Smoking Status: Unknown if ever smoked Tobacco Type: Cigarettes Second Hand Exposure: No; Do You Dip or Chew Tobacco: No; Hx Alcohol Use: No Hx Substance Use: No Preferred Language: [place] Communication Ability: Effective Visual Impairment: No Limitations Hearing Ability: Normal Insurance Claims Supervisor Required: No Beliefs That Will Affect Care: None Current Living Situation: Alone Current Living Situation Comment: [facility], independent living current occupational status: retired Feels Safe at Home: Yes Safety Concerns Comment: office of aging is visiting her tomorrow regarding getting more help @ home Assistive Devices: Cane, CPAP, Raised Toilet Seat, Walker and Wheelchair Review of Systems Review of Systems: At least ten systems reviewed and negative except as noted in the HPI. Physical Exam Physical Exam: Please see Dr. Enamorado's addendum for physical exam. Results & Data Results & Data Vital Signs (Past 12 Hours) Vital Signs Temp Pulse Resp BP Pulse Ox O2 Del Method 11/06/23 15:57 Room Air 11/06/23 15:41 64 11/06/23 14:39 36.7 C 64 16 81/53 L 96 Room Air Laboratory Results Short CBC 11/06/23 Range/Units 15:38 WBC 9.63 (4.8-10.8) K/ul Hgb 12.0 (12.0-16.0) g/dl Hct 35.5 L (37.0-47.0) % Plt Count 225 (130-400) K/uL BMP 11/06/23 15:38 Sodium 135 L Potassium 3.9 Chloride 101 Carbon Dioxide 26 BUN 20 Creatinine 1.45 H Glucose 118 H Calcium 8.5 L Liver Function 11/06/23 Range/Units 15:38 Total Bilirubin 0.2 (0.2-1.0) mg/dl AST 18 (13-39) U/L ALT 24 (7-52) U/L Alkaline Phosphatase 58 (34-104) U/L Albumin 3.6 (3.4-5.0) gm/dl Diagnostic Findings Chest X-Ray 11/06/23 15:40 XR chest 1V portable CLINICAL HISTORY: weakness TECHNIQUE: Single frontal radiograph of the chest was obtained. Comparison: Comparison is made to chest radiograph 07/08/2023 FINDINGS: No lines and tubes are seen. The cardiomediastinal silhouette is normal. The lungs are clear. No evidence of pleural effusion or pneumothorax. IMPRESSION: No acute chest disease. ACT 112: Negative or not required by law. Electronically signed by: Yariel Aparicio M.D. 11/06/2023 4:[address] 11/06/23 15:41 CT head/brain wo con CLINICAL HISTORY: dizzy Technique: Contiguous axial CT images of the head were acquired from the base of the skull to the vertex without intravenous contrast administration. Images were viewed in brain, subdural and bone windows. Automated dose lowering techniques and/or adjustment according to patient size were utilized for this exam. Comparison: Comparison is made to CT head 06/19/2023 Findings: The ventricles, basal cisterns, and cerebral sulci are normal. There is no acute intracranial hemorrhage or evidence of acute territorial infarction. Neither mass effect, shift of the midline structures, nor abnormal extra-axial fluid collections are shown. Imaged portions of the paranasal sinuses and mastoid air cells are clear. The orbits appear normal. There are no acute fractures of the calvaria or scalp swelling. Impression: No acute intracranial hemorrhage, no evidence of acute territorial infarction or other acute intracranial disease process. ACT 112: Negative or not required by law. Electronically signed by: Yariel Aparicio M.D. 11/06/2023 4:52 PM Supervising Physician Co-Signing Physician Notes Patient is a 72-year-old female with history of orthostatic hypotension, diabetes, COPD and other medical problems presents with history of dizziness. She admits to have ongoing labile blood pressures since about 1 year duration. Patient was found to be hypotensive initially and later hypertensive. Patient received IV fluids. Patient uncomfortable to be discharged home. She uses midodrine as needed for hypotension. Denies any recent infections. Patient's dizziness resolved with IV fluids. Please review HPI for complete details of pr esentation. Blood work fairly within normal limits. Creatinine levels near baseline. CT head showed no acute intracranial abnormality. Chest x-ray showed no acute process. Patient is admitted for management of labile blood pressure, hypertension. Agree with checking resting echo, orthostatics. PT OT, fall precautions. Continue metoprolol. Hold nifedipine for now. Midodrine as needed. Will adjust medications as needed. Physical Exam: Vitals signs as noted above General Appearance:Obese, no apparent distress Head: normocephalic, Atraumatic Eyes: normal inspection, EOMI, PERRL Neck: supple, Trachea midline Respiratory/Chest: Normal breath sounds, CTA, No accessory muscle use Cardiovascular: S1, S2, No murmur Abdomen/GI:Soft, Non tender, Bowel sounds present Extremities/Musculoskeletal:normal inspection, no edema Neurologic/Psych:AAOX3, grossly no focal neurological deficits Skin:normal color,warm I personally interviewed and examined at bedside. Patient's care is coordinated with Ruth Michel PA-C. I have reviewed the advanced practitioner's documentation, and I agree with plan of care. Please refer to the documentation above for details of patient's presentation and for discussion of other issues. I spent a total [id number] coordinating, documenting, and providing care for this patient excluding time spent in the performance of separately billed services. (4) Hypertension Hypertension type: unspecified Qualified Code(s): I10 - Essential (primary) hypertension
[2023-11-06 19:21] LABS: Appearance Urine Clear (Clear); Bacteria Urine Automated None Seen (None Seen); Bilirubin Urine Negative (Negative); Blood Urine Negative (Negative); Cast Urine Automated >20 /lpf (0-2); Color Urine Dark Yellow; Epithelial Cell Urine Auto 0-2 /hpf (0-2); Glucose Urine UA Negative (Negative); Ketones Urine Trace (Negative); Leukocyte Esterase Urine Trace (Negative); Nitrite Urine Negative (Negative); Protein Urine Negative (Negative); RBC Urine Automated 0-2 /hpf (0-2); Urobilinogen Urine Negative (Negative); WBC Urine Automated 0-5 /hpf (0-5); pH Urine 5.5 (4.5-7.5)
[2023-11-06] MEDS ORDERED: DEXTROSE 50% 50 ML SYRINGE IV PRN (19:41)
[2023-11-06] MEDS ORDERED: GLUCOSE 40% GEL 15 GM TUBE PO PRN (19:41)
[2023-11-06] MEDS ORDERED: GLUCOSE 10 TAB/TUBE PO PRN (19:41)
[2023-11-06] MEDS ORDERED: CARBOHYDRATES FOR HYPOGLYCEMIA PO PRN (19:41)
[2023-11-06] MEDS ORDERED: GLUCAGON FOR INJ 1 MG VIAL SQ PRN (19:41)
[2023-11-06] MEDS ORDERED: INSULIN ASPART PER UNIT CHARGE SC SCH (21:00)
[2023-11-06] MEDS: INSULIN ASPART PER UNIT CHARGE SC SCH (21:23)
[2023-11-06] MEDS: SODIUM CHLORIDE 0.9% 1,000 ML IV SCH (21:26)
[2023-11-06] MEDS ORDERED: ONDANSETRON INJ 2 MG/ML 2 ML VIAL IV PRN (22:07)
[2023-11-06] MEDS ORDERED: tiZANidine HCL 4 MG TABLET PO PRN (22:07)
[2023-11-06] MEDS ORDERED: MIDODRINE HCL 2.5 MG TAB PO PRN (22:07)
[2023-11-06] MEDS ORDERED: hydrOXYzine HCl 25 MG TAB PO PRN (22:07)
[2023-11-06] MEDS ORDERED: Nursing to Pharmacy Communication SCH ×2 (23:15→23:45)
[2023-11-06] MEDS: TOCOPHERYL, DL-ALPHA 400 UNITS 180 MG CAP PO SCH (23:23)
[2023-11-06] MEDS: METOPROLOL SUCC 25MG EXT REL TAB PO SCH (23:23)
[2023-11-06] MEDS: DOXEPIN HCL 25 MG CAPSULE PO SCH (23:23)
[2023-11-06] MEDS: MIRTAZAPINE TAB 15 MG TAB PO SCH (23:23)
[2023-11-06] MEDS: ATORVASTATIN 10 MG TAB PO SCH (23:24)
[2023-11-06] MEDS: PERPHENAZINE 2 MG TAB PO SCH (23:24)
[2023-11-06] MEDS: FAMOTIDINE 20 MG TAB PO SCH (23:24)
[2023-11-06] MEDS: HEPARIN SOD 5,000 UNIT/0.5 ML VIAL SQ SCH (23:25)
[2023-11-06] MEDS: FLUTICASONE PROPIONATE NA SPR 16 GM BTL NAE SCH (23:25)
[2023-11-07] MEDS: LEVOTHYROXINE SODIUM 125 MCG TABLET PO SCH (06:15)
[2023-11-07 07:13] LABS: Hematocrit (blood only) 38.4 % (37.0-47.0); Hemoglobin 13.1 g/dl (12.0-16.0); Mean Corpuscular Hemoglobin 29.8 pg (25.0-34.0); Mean Corpuscular Hgb Conc 34.1 g/dL (32.0-36.0); Mean Corpuscular Volume 87.3 fL (80.0-100.0); Mean Platelet Volume 11.7 fL (9.4-12.4); Platelet Count 213 K/uL (130-400); RDW Coefficient of Variation 13.5 % (11.5-14.5); RDW Standard Deviation 43.4 fL (36.4-46.3)
[2023-11-07 07:29] LABS: BUN Creatinine Ratio 14.5 (10-20); Calcium 9.1 mg/dl (8.6-10.3); Creatinine Clr Calc Pharmacy 38.3 ml/min; Est GFR (African American) 46.7 ml/min; Est GFR (Non-African American) 40.3 ml/min; Potassium 4.2 mmol/L (3.5-5.1)
[2023-11-07 07:44] LABS: Estimated Average Glucose 128 mg/dl; Hemoglobin A1C 6.1 % (4.5-5.6)
[2023-11-07] MEDS ORDERED: NON-FORMULARY MEDICATION (Citalopram 10 mg tablet) PO SCH (09:00)
[2023-11-07] MEDS: FLUTICASONE/VILANTEROL 200/25MCG 14 PUFFS/INHALER INH SCH (09:03)
[2023-11-07] MEDS: VITAMIN B COMPLEX TAB PO SCH (09:04)
[2023-11-07] MEDS: FLUTICASONE PROPIONATE NA SPR 16 GM BTL NAE SCH (09:04)
[2023-11-07] MEDS: CETIRIZINE HCL 10 MG TABLET PO SCH (09:04)
[2023-11-07] MEDS: ASCORBIC ACID 500 MG TAB PO SCH (09:04)
[2023-11-07] MEDS: ASPIRIN 81 MG ECTAB PO SCH (09:04)
[2023-11-07] MEDS: MONTELUKAST SODIUM 10 MG TABLET PO SCH (09:04)
[2023-11-07] MEDS: CITALOPRAM 20 MG TAB PO SCH (09:04)
[2023-11-07] MEDS: MAGNESIUM OXIDE 400 MG TAB PO SCH (09:04)
[2023-11-07] MEDS: POLYETHYLENE (MIRALAX) 17 GM PACK PO PRN (09:16)
--- NOTE | 2023-11-07 12:59 | Hospitalist Progress Note ---
Date of Service November 07, 2023 Assessment & Plan (1) Dizziness: (2) Symptomatic hypotension: (3) Labile blood pressure: (4) Hypertension: (5) CKD (chronic kidney disease), stage III: (6) Diabetes mellitus, type II: (7) COPD (chronic obstructive pulmonary disease): (8) Nocturnal hypoxemia: (9) Hypothyroidism: (10) Anxiety and depression: Plan: This is a 72yo F with a PMH of orthostatic hypotension, DM II, dyslipidemia, COPD, nocturnal hypoxemia, CKD III, depression, GERARDO insomnia and other medical problems listed below who presents with dizziness she noticed this afternoon in the setting of labile hypotension. Symptomatic hypotension Labile blood pressure Fatigued and dizzy earlier, BP unreadable with home cuff. EMS read initial SBP in 50s -> improved to 70s following 500ml NSS bolus In ED, BP improved to 115/72 following 1.5 L total volume. t Denies any recent medication changes aside from increased mirtazapine dose - chronically on significant amt of psych meds - citalopram, doxepin, hydroxyzine, mirtazapine, perphenazine Blood pressure improved after IV hydration Will stop nifedipine. Continue on metoprolol with holding parameters Fall precautions PT OT evaluation Diabetes mellitus, type II A1c: 6.1% Hold home agents SSI while in-patient BSG AC HS CKD III Similar to baseline of 1.3-1.4 Expect improvement with fluids Monitor daily BMP COPD (chronic obstructive pulmonary disease) No signs exacerbation Continue home inhalers Dyslipidemia Continue atorvastatin CAD History of [place] [id number] Continue aspirin, atorvastatin, Toprol Anxiety Depression Continue home medications Follows with psychiatry, per patient attempting to wean med regimen as there is concern for side effect profile Nocturnal hypoxemia ADRI Continue 2L O2 HS DVT Ppx: SQ heparin Code status: FULL PCP: Katharina Dispo: med tele Please note the above document was generated using voice recognition software. It may contain grammatical, syntax or spelling errors. Any formal questions or concerns about the content, text or information contained within the body of this dictation should be directly addressed to the provider for clarification Admission and Anticipated Discharge Date Admission Date: November 06, 2023 Subjective Patient seen and examined at bedside. She is sitting up at the side of the bed; not in distress She denies any dizziness, headache, visual disturbances, chest pain or shortness of breath Review of Systems Review of Systems: All systems reviewed & are unremarkable except as noted in Subjective Physical Exam Physical Exam: Constitutional: Alert oriented x 3; not in distress Respiratory: normal respiratory effort, lungs clear to auscultation, no wheeze, rales, rhonchi. Normal insp/exp effort, no accessory muscle use Cardiovascular: RRR, no murmur, no edema Vessels: no JVD or carotid bruit Chest: normal inspection of chest Abdomen: normal bowel sounds, soft, nontender, no hepatosplenomegaly Musculoskeletal: no cyanosis or clubbing, extremities motor strength 5/5 Skin: no rashes, warm and dry normal turgor Neurologic: PERRL, EOMI, accommodation nl, no face palsy, no dysarthria CN's II- XI intact bilaterally and moves all extremities Psychiatric: A+Ox3, euthymic affect Results & Data Results & Data Vital Signs (Past 12 Hours) Vital Signs Temp Pulse Pulse Resp BP BP Pulse Ox 11/07/23 07:52 36.9 C 69 16 162/90 H 92 11/07/23 07:30 71 11/07/23 03:11 36.4 C L 70 18 120/74 94 O2 Del Method 11/07/23 07:52 Room Air 11/07/23 07:30 11/07/23 03:11 Room Air (4) Hypertension Hypertension type: unspecified Qualified Code(s): I10 - Essential (primary) hypertension
[2023-11-07] MEDS: ACETAMINOPHEN 325 MG TAB PO PRN (14:39)
[2023-11-08 06:59] LABS: Hematocrit (blood only) 38.3 % (37.0-47.0); Mean Corpuscular Hemoglobin 29.7 pg (25.0-34.0); Mean Corpuscular Hgb Conc 33.9 g/dL (32.0-36.0); Mean Corpuscular Volume 87.4 fL (80.0-100.0); Mean Platelet Volume 11.9 fL (9.4-12.4); Platelet Count 208 K/uL (130-400); RDW Coefficient of Variation 13.5 % (11.5-14.5); RDW Standard Deviation 43.4 fL (36.4-46.3); Red Blood Count 4.38 M/uL (4.20-5.40); White Blood Count 6.97 K/ul (4.8-10.8)
[2023-11-08 07:24] LABS: BUN Creatinine Ratio 16.9 (10-20); Calcium 9.5 mg/dl (8.6-10.3); Creatinine Clr Calc Pharmacy 42.2 ml/min; Est GFR (Non-African American) 45.7 ml/min; Potassium 4.2 mmol/L (3.5-5.1)
--- NOTE | 2023-11-08 13:35 | Hospitalist Progress Note ---
Date of Service November 08, 2023 Assessment & Plan (1) Dizziness: (2) Symptomatic hypotension: (3) Labile blood pressure: (4) Hypertension: (5) CKD (chronic kidney disease), stage III: (6) Diabetes mellitus, type II: (7) COPD (chronic obstructive pulmonary disease): (8) Nocturnal hypoxemia: (9) Hypothyroidism: (10) Anxiety and depression: Plan: This is a 72yo F with a PMH of orthostatic hypotension, DM II, dyslipidemia, COPD, nocturnal hypoxemia, CKD III, depression, GERARDO insomnia and other medical problems listed below who presents with dizziness she noticed this afternoon in the setting of labile hypotension. Symptomatic hypotension Labile blood pressure Fatigued and dizzy earlier, BP unreadable with home cuff. EMS read initial SBP in 50s -> improved to 70s following 500ml NSS bolus In ED, BP improved to 115/72 following 1.5 L total volume. t Denies any recent medication changes aside from increased mirtazapine dose - chronically on significant amt of psych meds - citalopram, doxepin, hydroxyzine, mirtazapine, perphenazine Blood pressure improved after IV hydration However, patient's blood pressures have trended to high with SBP of 160s to 170s. Will add nifedipine back. Switch metoprolol to Coreg 6.25 twice daily. Continue to monitor blood pressure inpatient Diabetes mellitus, type II A1c: 6.1% Hold home agents SSI while in-patient BSG AC HS CKD III Similar to baseline of 1.3-1.4 Expect improvement with fluids Monitor daily BMP COPD (chronic obstructive pulmonary disease) No signs exacerbation Continue home inhalers Dyslipidemia Continue atorvastatin CAD History of [place] [id number] Continue aspirin, atorvastatin, Toprol Anxiety Depression Continue home medications Follows with psychiatry, per patient attempting to wean med regimen as there is concern for side effect profile Nocturnal hypoxemia ADRI Continue 2L O2 HS DVT Ppx: SQ heparin Code status: FULL PCP: Katharina Dispo: med tele. She continues to hospitalize for management of high blood pressure requiring close monitoring. Please note the above document was generated using voice recognition software. It may contain grammatical, syntax or spelling errors. Any formal questions or concerns about the content, text or information contained within the body of this dictation should be directly addressed to the provider for clarification Admission and Anticipated Discharge Date Admission Date: November 06, 2023 Subjective Patient seen and examined at bedside. She is comfortably sitting up; not in distress. She denies fevers, chills, chest pain shortness of breath or abdominal pain No significant events Blood pressure continues to be high Review of Systems Review of Systems: All systems reviewed & are unremarkable except as noted in Subjective Physical Exam Physical Exam: Constitutional: Alert oriented x 3; not in distress Respiratory: normal respiratory effort, lungs clear to auscultation, no wheeze, rales, rhonchi. Normal insp/exp effort, no accessory muscle use Cardiovascular: RRR, no murmur, no edema Vessels: no JVD or carotid bruit Chest: normal inspection of chest Abdomen: normal bowel sounds, soft, nontender, no hepatosplenomegaly Musculoskeletal: no cyanosis or clubbing, extremities motor strength 5/5 Skin: no rashes, warm and dry normal turgor Neurologic: PERRL, EOMI, accommodation nl, no face palsy, no dysarthria CN's II- XI intact bilaterally and moves all extremities Psychiatric: A+Ox3, euthymic affect Results & Data Results & Data Vital Signs (Past 12 Hours) Vital Signs Temp Pulse Pulse Resp BP BP Pulse Ox 11/08/23 13:30 147/75 H 11/08/23 10:34 36.7 C 64 18 175/85 H 166/86 H 96 11/08/23 09:00 68 11/08/23 09:00 11/08/23 08:26 36.7 C 64 18 175/85 H 96 11/08/23 03:03 11/08/23 02:45 55 L 20 93 11/08/23 02:42 36.2 C L 58 L 16 166/86 H 95 O2 Del Method FiO2 11/08/23 13:30 11/08/23 10:34 11/08/23 09:00 11/08/23 09:00 Room Air 11/08/23 08:26 Room Air 11/08/23 03:03 Room Air, CPAP 11/08/23 02:45 21 11/08/23 02:42 CPAP (4) Hypertension Hypertension type: unspecified Qualified Code(s): I10 - Essential (primary) hypertension
[2023-11-08] MEDS: MAGNESIUM HYDROXIDE SUSP 30 ML UDC PO SCH (14:10)
[2023-11-08] MEDS: NIFEdipine EXTENDED REL 30 MG TABCR PO SCH (15:48)
[2023-11-08] MEDS: carvediloL 6.25 MG TAB PO SCH (17:31)
[2023-11-08] MEDS: LORazepam 0.5 MG TAB PO PRN (20:13)
[2023-11-09 07:26] LABS: BUN Creatinine Ratio 19.2 (10-20); Calcium 9.4 mg/dl (8.6-10.3); Creatinine Clr Calc Pharmacy 39.7 ml/min; Est GFR (African American) 49.4 ml/min; Est GFR (Non-African American) 42.6 ml/min; Potassium 4.5 mmol/L (3.5-5.1)
--- NOTE | 2023-11-09 13:00 | Hospitalist Progress Note ---
Date of Service November 09, 2023 Assessment & Plan (1) Dizziness: (2) Symptomatic hypotension: (3) Labile blood pressure: (4) Hypertension: (5) CKD (chronic kidney disease), stage III: (6) Diabetes mellitus, type II: (7) COPD (chronic obstructive pulmonary disease): (8) Nocturnal hypoxemia: (9) Hypothyroidism: (10) Anxiety and depression: Plan: This is a 72yo F with a PMH of orthostatic hypotension, DM II, dyslipidemia, COPD, nocturnal hypoxemia, CKD III, depression, GERARDO insomnia and other medical problems listed below who presents with dizziness she noticed this afternoon in the setting of labile hypotension. Symptomatic hypotension Labile blood pressure Fatigued and dizzy earlier, BP unreadable with home cuff. EMS read initial SBP in 50s -> improved to 70s following 500ml NSS bolus In ED, BP improved to 115/72 following 1.5 L total volume. t Denies any recent medication changes aside from increased mirtazapine dose - chronically on significant amt of psych meds - citalopram, doxepin, hydroxyzine, mirtazapine, perphenazine Blood pressure improved after IV hydration However, patient's blood pressures have trended to high with SBP of 160s to 170s. Will add nifedipine back. Switch metoprolol to Coreg 6.25 twice daily. Continue to monitor blood pressure inpatient Episode of low blood pressure noted; will continue to monitor closely Diabetes mellitus, type II A1c: 6.1% Hold home agents SSI while in-patient BSG AC HS CKD III Similar to baseline of 1.3-1.4 Expect improvement with fluids Monitor daily BMP COPD (chronic obstructive pulmonary disease) No signs exacerbation Continue home inhalers Dyslipidemia Continue atorvastatin CAD History of CO [id number] Continue aspirin, atorvastatin, Toprol Anxiety Depression Continue home medications Follows with psychiatry, per patient attempting to wean med regimen as there is concern for side effect profile Nocturnal hypoxemia ADRI Continue 2L O2 HS DVT Ppx: SQ heparin Code status: FULL PCP: Katharina Dispo: med tele. She continues to hospitalize for management of high blood pressure requiring close monitoring. Please note the above document was generated using voice recognition software. It may contain grammatical, syntax or spelling errors. Any formal questions or concerns about the content, text or information contained within the body of this dictation should be directly addressed to the provider for clarification Admission and Anticipated Discharge Date Admission Date: November 08, 2023 Subjective Patient seen and examined at bedside Patient reported low blood pressure last evening. Denied dizziness during the episode. Blood pressure overall improved. Review of Systems Review of Systems: All systems reviewed & are unremarkable except as noted in Subjective Physical Exam Physical Exam: Constitutional: Alert oriented x 3; not in distress Respiratory: normal respiratory effort, lungs clear to auscultation, no wheeze, rales, rhonchi. Normal insp/exp effort, no accessory muscle use Cardiovascular: RRR, no murmur, no edema Vessels: no JVD or carotid bruit Chest: normal inspection of chest Abdomen: normal bowel sounds, soft, nontender, no hepatosplenomegaly Musculoskeletal: no cyanosis or clubbing, extremities motor strength 5/5 Skin: no rashes, warm and dry normal turgor Neurologic: PERRL, EOMI, accommodation nl, no face palsy, no dysarthria CN's II- XI intact bilaterally and moves all extremities Psychiatric: A+Ox3, euthymic affect Results & Data Results & Data Vital Signs (Past 12 Hours) Vital Signs Temp Pulse Pulse Resp BP BP Pulse Ox 11/09/23 08:13 11/09/23 08:00 36.6 C 65 20 136/79 94 11/09/23 07:24 61 11/09/23 03:03 60 14 98 11/09/23 03:00 36.3 C L 72 18 150/83 H 93 O2 Del Method 11/09/23 08:13 Room Air 11/09/23 08:00 Room Air 11/09/23 07:24 11/09/23 03:03 11/09/23 03:00 Room Air (4) Hypertension Hypertension type: unspecified Qualified Code(s): I10 - Essential (primary) hypertension
[2023-11-10 06:39] LABS: Basophils # (auto) 0.06 K/uL (0.00-0.20); Basophils % (auto) 0.7 %; Eosinophils # (auto) 0.34 K/uL (0.00-0.50); Eosinophils % (auto) 4.2 %; Hematocrit (blood only) 37.8 % (37.0-47.0); Hemoglobin 13.3 g/dl (12.0-16.0); Immature Granulocytes # (auto) 0.02 K/uL (0.01-0.20); Immature Granulocytes % (auto) 0.2 %; Lymphocytes # (auto) 2.58 K/uL (1.20-3.40); Lymphocytes % (auto) 32.1 %; Mean Corpuscular Hemoglobin 30.4 pg (25.0-34.0); Mean Corpuscular Hgb Conc 35.2 g/dL (32.0-36.0); Mean Corpuscular Volume 86.5 fL (80.0-100.0); Monocytes # (auto) 0.76 K/uL (0.11-0.59); Monocytes % (auto) 9.5 %; Neutrophils # (auto) 4.27 K/uL (1.40-6.50); Neutrophils % (auto) 53.3 %; Platelet Count 246 K/uL (130-400); RDW Coefficient of Variation 13.4 % (11.5-14.5); RDW Standard Deviation 42.3 fL (36.4-46.3); Red Blood Count 4.37 M/uL (4.20-5.40); White Blood Count 8.03 K/ul (4.8-10.8)
[2023-11-10 06:59] LABS: BUN Creatinine Ratio 24.2 (10-20); Creatinine Clr Calc Pharmacy 41.2 ml/min; Est GFR (African American) 51.9 ml/min; Est GFR (Non-African American) 44.8 ml/min
--- NOTE | 2023-11-10 12:38 | Discharge Summary ---
Date of Service November 10, 2023 Admission HPI Per Admitting Provider This is a 72yo F with a PMH of orthostatic hypotension, DM II, dyslipidemia, COPD, nocturnal hypoxemia, CKD III, depression, GERARDO insomnia and other medical problems listed below who presents with dizziness she noticed this afternoon. Has labile hypertension that is known. Earlier today took her BP and SBP in 160s. Then when she felt tired and dizzy in the afternoon, the home health aid took BP and it was unreadable and patient was brought in by EMS. SBP initially in 50s improved to 70s after 500ml bolus en route. After a total of 1.5 L given this afternoon, SBP improved to 100s. Has been admitted for labile HTN in the past. Denies any recent medication changes aside from increased mirtazapine dose. Usually takes PRN midodrine a few times per week but felt worse today with her low BP. Baseline Cr ~ 1.2-1.3. + congestion. No F/C, headache, CP, SOB, N/V, abd pain, dysuria, diarrhea or constipation. Admission Exam Per Admitting Provider General Appearance:Obese, no apparent distress Head: normocephalic, Atraumatic Eyes: normal inspection, EOMI, PERRL Neck: supple, Trachea midline Respiratory/Chest: Normal breath sounds, CTA, No accessory muscle use Cardiovascular: S1, S2, No murmur Abdomen/GI:Soft, Non tender, Bowel sounds present Extremities/Musculoskeletal:normal inspection, no edema Neurologic/Psych:AAOX3, grossly no focal neurological deficits Skin:normal color,warm Principal Diagnosis Elevated blood pressure Hypotension Discharge Exam Constitutional: Alert oriented x 3; not in distress Respiratory: normal respiratory effort, lungs clear to auscultation, no wheeze, rales, rhonchi. Normal insp/exp effort, no accessory muscle use Cardiovascular: RRR, no murmur, no edema Vessels: no JVD or carotid bruit Chest: normal inspection of chest Abdomen: normal bowel sounds, soft, nontender, no hepatosplenomegaly Musculoskeletal: no cyanosis or clubbing, extremities motor strength 5/5 Skin: no rashes, warm and dry normal turgor Neurologic: PERRL, EOMI, accommodation nl, no face palsy, no dysarthria CN's II- XI intact bilaterally and moves all extremities Psychiatric: A+Ox3, euthymic affect Discharge Data Allergies Allergy/AdvReac Type Severity Reaction Status Date / Time Sulfa (Sulfonamide Allergy Severe face Verified 11/06/23 17:42 Antibiotics) tongue lips swelling,HEADACHE amoxicillin AdvReac Intermediate YEAST Verified 11/06/23 17:42 INFECTION clavulanic acid AdvReac Intermediate YEAST Verified 11/06/23 17:42 INFECTION codeine AdvReac Intermediate N/V Verified 11/06/23 17:42 Consultations 11/06/23 17:57 ED Decision to Admit Stat Ordered Studies 11/06/23 15:41 CT head/brain wo con Stat Hospital Course (1) Dizziness: (2) Symptomatic hypotension: (3) Labile blood pressure: (4) Hypertension: (5) CKD (chronic kidney disease), stage III: (6) Diabetes mellitus, type II: (7) COPD (chronic obstructive pulmonary disease): (8) Nocturnal hypoxemia: (9) Hypothyroidism: (10) Anxiety and depression: This is a 72yo F with a PMH of orthostatic hypotension, DM II, dyslipidemia, COPD, nocturnal hypoxemia, CKD III, depression, GERARDO insomnia and other medical problems listed below who presents with dizziness she noticed this afternoon in the setting of labile hypotension. Symptomatic hypotension Labile blood pressure Fatigued and dizzy earlier, BP unreadable with home cuff. EMS read initial SBP in 50s -> improved to 70s following 500ml NSS bolus In ED, BP improved to 115/72 following 1.5 L total volume. t Denies any recent medication changes aside from increased mirtazapine dose - chronically on significant amt of psych meds - citalopram, doxepin, hydroxyzine, mirtazapine, perphenazine During the hospitalization,Blood pressure improved after IV hydration However, patient's blood pressures have trended to high with SBP of 160s to 170s. Nifedipine was added back. Metoprolol was switched to Coreg 6.25 twice daily. Her blood pressure stabilized with the changes. Patient was discharged home on the medication adjustment. Discussed with patient regarding monitoring blood home blood pressure. Patient to follow-up with PCP after discharge Please note the above document was generated using voice recognition software. It may contain grammatical, syntax or spelling errors. Any formal questions or concerns about the content, text or information contained within the body of this dictation should be directly addressed to the provider for clarification Total Time Total Time Spent Total Time Spent (In Minutes): 35 Total Time Includes: Examination of the Patient, Discharge Planning, Medication Reconciliation, Communication With Other Providers and Other Discharge Plan Discharge Items Patient Disposition: Home - Self-Care Reason For Visit: LABILE HYPOTENSION, LIGHTHEADEDNESS Discharge Diagnosis: Hypotension Activity: Resume your previous activity Non-emergency contact: Primary Care Provider Call non-emergency contact if: you have any medication questions and your symptoms worsen Follow-up/Referrals: Patti Posadas MD [Primary Care Provider] - (Date & Time 11/14/2023 2:00 PM Provider Patti Posadas MD [facility] ) Diet: Regular Addtl Attending Provider Instructions: The metoprolol is changed to Coreg 6.25 mg twice a day for hypertension. Please continue taking nifedipine 30 mg once a day. Please measure your blood pressure daily at home in the morning and follow the instructions outlined below: If you notice your blood pressure is lower than 120/80; Hold nifedipine. If you notice your blood pressure is less than 100/60; hold antihypertensives( Both Coreg and nifedipine) for the day Please follow-up with your primary care doctor as scheduled Pending Studies at Discharge: No Stand-Alone Forms: My OF[facility], Smoking Cessation Medications and DC Order Prescriptions: New nifedipine [Procardia XL] 30 mg Tablet Extended Release 24hr 30 mg PO QAM Qty: 30 0RF carvedilol 6.25 mg Tablet 6.25 mg PO BIDM Qty: 60 0RF Continued diclofenac sodium 1 % gel 1 g topical BID PRN (Reason: Pain) montelukast 10 mg tablet 10 mg PO QAM hydroxyzine HCl 25 mg tablet 25 mg PO BID PRN (Reason: Anxiety) ascorbic acid (vitamin C) 1,000 mg tablet 1 g PO DAILY vitamin B complex Capsule 1 cap PO DAILY midodrine 2.5 mg tablet 2.5 mg PO BID PRN (Reason: NEEDED) Rx Instructions: for orthostatic hypotension < 80/50 nystatin [Nystop] 100,000 unit/gram powder 1 applic topical DIRECTED PRN (Reason: Skin Irritation) perphenazine 2 mg Tablet 6 mg PO HS cetirizine 10 mg Tablet 10 mg PO QAM atorvastatin 10 mg Tablet 10 mg PO HS doxepin 25 mg Capsule 25 mg PO HS levothyroxine 125 mcg Capsule 125 mcg PO DAILYBB famotidine 20 mg Tablet 20 mg PO AMHS metformin 500 mg tablet 500 mg PO BIDM citalopram 10 mg tablet 10 mg PO QAM Rx Instructions: TOTAL DOSE 30 MG--TAKES WITH 20 MG TAB. aspirin 81 mg Tablet,Delayed Release (Dr/Ec) 81 mg PO QAM citalopram 20 mg tablet 20 mg PO QAM Rx Instructions: TOTAL DOSE 30 MG--TAKES WITH 10 MG TAB. lorazepam 0.5 mg tablet 0.5 mg PO HS PRN (Reason: as directed) vitamin E (dl, acetate) 180 mg (400 unit) capsule 180 mg PO BID turmeric-turmeric root extract 450-50 mg capsule 1 cap PO QAM omega 2-jdw-bpm-fish oil 300 mg (120 mg- 180mg)-1,000 mg capsule 1 cap PO BID fluticasone propionate 50 mcg/actuation spray,suspension 1 spray INTRANASAL QPM magnesium oxide 400 mg (241.3 mg magnesium) Tablet 400 mg PO QAM Qty: 30 0RF acetaminophen 650 mg tablet extended release 650 mg PO Q8H PRN (Reason: fever or pain) Qty: 60 0RF fluticasone propion-salmeterol [Advair Diskus] 250-50 mcg/dose blister with device 1 inh INHALATION BID mirtazapine 30 mg tablet 30 mg PO HS diazepam 5 mg tablet 5 mg PO .COMPLEX PRN (Reason: PRIOR TO PROCEDURE) Rx Instructions: 5 mg PO; 1 tab PO qhs night prior, then 1.5 hours before procedure, then may repeat 0.5 hours prior to procedure; Discontinued tizanidine 4 mg tablet 4 mg PO Q8H PRN (Reason: MUSCLE SPASMS) metoprolol succinate 25 mg tablet extended release 24 hr 25 mg PO BID nifedipine [Procardia XL] 30 mg Tablet Extended Release 24hr 30 mg PO QAM Qty: 30 0RF Discharge Orders: Discharge Order (Routine); Ordered 11/10/23 Ordered By: Konstantin Brown/Other Patient Handouts: Managing Type 2 Diabetes Admission Data Admit Date/Time: 11/08/23 13:33 Attending Provider: Konstantin Cooper Admit Provider: Drew Enamorado Primary Care Provider: Patti Posadas Other Providers: Drew Enamorado Other Interventions: Discharge Summary Assessment (RN) Last Done: 11/10/23 11:39
== END 2023-11-10 13:15 | disposition home or self-care (01) | DRG 316 ==
LOC: ED 15:27 → EDINP 15:27 → SUATTDRO 18:15 → 2N 21:39

== ENCOUNTER 2024-02-17 16:37 | Inpatient (IN) ==
--- OUTSIDE RECORDS SUMMARY | 2024-02-17 16:45 | External Medical Summary | Summary of Care ---
Author Name Unknown Organization [facility] Address [address] [place] [address] Phone [phone] Care Team Providers Care Roading Engineer Name Role Phone Patti Posadas MD Primary Care Provider [phone] Reason for Visit * Reason Onset Date Comments Medication Question 01/28/2024 Encounter Details Date Type Department Care Team (Late st Contact Info) Description 01/28/2024 Telephone [facility] [address] [place] [address] Patti Posadas MD [address] [place] [address] Medication Question Allergies Active Allergy Reactions Criticality Noted Date Comments Amoxicillin-Pot Clavulanate Other (Please comment) 01/14/2015 Severe Yeast infection Morphine And Codeine Unknown 02/19/2003 Codeine makes her vomit Sulfa Antibiotics Edema face/lips/tongue,Oth er (Please comment) High 02/19/2003 Headache documented as of this encounter (statuses as of 01/28/2024) Medications Medication Sig Dispensed Refills Start Date End Date Status PERPHENAZINE 2 MG PO TABS one to two tablets at bedtime 02/09/2014 Active LORAzepam (ATIVAN) 0.5 MG Tablet Take 1 Tablet by mouth at bedtime as needed for Anxiety or Insomnia. 30 Tab 0 08/22/2015 Active Dexter-3 Fatty Acids (FISH OIL) 1200 MG CAPS Take 1 Cap by mouth daily. Active doxepin (SINEQUAN) 25 MG Capsule Take 1 Cap by mouth at bedtime. 90 Cap 3 05/15/2017 Active Ipratropium-Albutero l 20-100 MCG/ACT Inhalation Aerosol Solution (Combivent Respimat) (1) inhalation 4 times daily - please note change 18 g 3 06/19/2021 Active Additional Information Patient not taking.Reported on 09/04/2023 hydrOXYzine HCl 25 MG Oral Tablet Take 1 Tablet by mouth 2 times a day as needed. 01/04/2022 Active CPAP every night at bedtime. Active Nystatin [id number] UNIT/GM External CreamIndications:Can didal skin infection Apply topically to affected area 2 times a day. for two weeks. 60 g 1 07/03/2022 Active Citalopram Hydrobromide 10 MG Oral Tablet (CeleXA) 12/11/2022 Acti ve Citalopram Hydrobromide 20 MG Oral Tablet (CeleXA) 12/11/2022 Acti ve Vilazodone HCl 20 MG Oral Tablet (Viibryd) 12/11/2022 Active Vitamin E 180 MG (400 UNIT) [...] EVERY DAY 28 Capsule 11 03/18/2023 Active Aspirin Low Dose 81 MG Oral Tablet Delayed Release (aspirin enteric coated) TAKE ONE TABLET BY MOUTH EVERY MORNING 90 Tablet 3 05/20/2023 Active NIFEdipine ER 30 MG Oral Tablet Extended Release 24 Hour (Adalat CC) Take 1 Tablet by mouth in the morning. 90 Tablet 3 07/11/2023 Active Fluticasone Propionate 50 MCG/ACT Nasal Suspension (Flonase)Indications :Chronic rhinitis INSTILL 2 SPRAYS INTO EACH NOSTRIL DAILY 48 g 3 07/18/2023 Active Fluticasone-Salmeter ol 250-50 MCG/ACT Inhalation Aerosol Powder Breath Activated (Advair Diskus) Inhale 1 Puff by mouth in the morning and 1 Puff before bedtime. Rinse mouth after use.. 180 Each 3 07/18/2023 Active Midodrine HCl 2.5 MG Oral Tablet (Proamatine) Take one tab twice daily as needed for orthostatic hypotension less than 80/50 After taking it, please repeat check BP in 30 min 60 Tablet 5 08/06/2023 Active Nystatin [id number] UNIT/GM External Powder (Nystop)Indications: Candidal skin infection Apply topically to affected area 3 times a day. 30 g 3 08/08/2023 Active Diclofenac Sodium 1 % External Gel (Voltaren) Apply 1 g topically to affected area in the morning and 1 g before bedtime. 100 g 3 08/15/2023 Active Depend Underwear X-Large Use 3-4 depends per day 130 Each 11 09/19/2023 Active Albuterol Sulfate (2.5 MG/3ML) 0.083% Inhalation Nebulization Solution (Proventil)Indicatio ns:COPD, mild (HCC),Centrilobular emphysema (HCC),Hypoxemia INHALE 1 VIAL VIA NEBULIZER EVERY 4 HOURS NEEDED FOR WHEEZING OR SHORTNESS OF BREATHE (CHEST PRESSURE) 300 mL 5 10/15/2023 Active Mirtazapine 30 MG Oral Tablet (Remeron) Take 1 Tablet by mouth at bedtime. 10/29/2023 Active Carvedilol 6.25 MG Oral Tablet (Coreg) Take 1 Tablet by mouth in the morning and 1 Tablet before bedtime. With meals.. 180 Tablet 3 11/14/2023 Active Albuterol Sulfate HFA 108 (90 Base) MCG/ACT Inhalation Aerosol Solution Inhale 2 Puffs by mouth every 6 hours as needed (SOB cough). 18 g 5 11/14/2023 Active Spacer/Aero-Holding Chambers DeviceIndications:CO PD, group B, by GOLD 2017 classification (HCC) Use with albuterol inhaler. 1 Each 11/19/2023 Active Olopatadine HCl 0.2 % Ophthalmic Solution Instill 1 Drop into eye in the morning. 15 mL 3 12/13/2023 Active Garlic 1000 MG Oral Capsule Take 1 Capsule by mouth in the morning. 90 Capsule 2 12/16/2023 Active Levothyroxine Sodium 125 MCG Oral Tablet (Levoxyl)Indications :Acquired hypothyroidism TAKE ONE TABLET BY MOUTH EVERY DAY AT LEAST 30 MINUTES PRIOR TO BREAKFAST OR OTHER MEDICATIONS 90 Tablet 2 12/16/2023 Active Montelukast Sodium 10 MG Oral Tablet (Singulair)Indicatio ns:Allergic rhinitis due to other allergic trigger, unspecified seasonality Take 1 Tablet by mouth in the morning. In the morning.. 90 Tablet 2 12/16/2023 Active Cetirizine HCl 10 MG Oral Tablet (ZyrTEC) Take 1 Tablet by mouth in the morning. In the morning.. 90 Tablet 2 12/16/2023 Active Atorvastatin Calcium 10 MG Oral Tablet (Lipitor)Indications :Dyslipidemia Take 1 Tablet by mouth in the morning. In the morning.. 90 Tablet 2 12/16/2023 Active metFORMIN HCl 500 MG Oral Tablet (Glucophage) TAKE ONE TABLET BY MOUTH TWICE DAILY with morning and evening meals. 180 Tablet 2 12/16/2023 Active Famotidine 20 MG Oral Tablet (Pepcid) Take 1 Tablet by mouth in the morning and 1 Tablet before bedtime. 180 Tablet 2 12/16/2023 Active Turmeric Curcumin 500 MG Oral Capsule Take 1 Capsule by mouth in the morning. Every morning.. 90 Capsule 2 12/16/2023 Active Triamcinolone Acetonide 0.5 % External Cream (Aristocort)Indicati ons:Credit Control Administrator's papule Apply 0.5 g topically to affected area in the morning and 0.5 g before bedtime. To affected area.. 60 g 1 2023 Active tiZANidine HCl 4 MG Oral Tablet (Zanaflex) Take 1 Tablet by mouth every 8 hours as needed for Muscle spasms. 90 Tablet 3 01/02/2024 Active documented as of this encounter (statuses as of 01/28/2024) Active Problems Problem Noted Date Diagnosed Date Labile blood pressure 11/14/2023 Orthostatic hypotension 09/02/2023 Moderate episode of recurrent major depressive d isorder 09/02/2023 DDD (degenerative disc disease), thoracic 2022 COPD, group B, by GOLD 2017 classification 05/28 Overview: Per COPD GOLD Classification Chronic kidney disease, stage 3a 11/29/2020 Overview: Per CKD protocol Benign hypertension with stage 3a chronic kidney disease 10/25/2020 Overview: Per CKD protocol Type 2 diabetes mellitus wit h stage 3a chronic kidney disease 10/25/2020 Overview: Per CKD protocol Nocturnal hypoxemia 08/17/2020 History of tobacco abuse 08/17/2020 Periodic limb movement disorder (PLMD) 0 Need for prophylactic vaccin ation and inoculation against influenza 02/17/2020 GERARDO (generalized anxiety disorder) 03/25/2018 Gastroesophageal reflux disease 03/25/2018 Old OR (myocardial infarction) 03/25/2018 Severe obesity with body [...] as of this encounter (statuses as of 01/28/2024) Resolved Problems Problem Noted Date Diagnosed Date Resolved Date Type 2 diabetes mellitus wit h stage 3a chronic kidney disease, without long-term current use of insulin 07/04/2023 08/01/2023 Recurrent major depressive disorder 08/31/2020 07/04/2023 Diabetes mellitus with stage 3 chronic kidney [...] and 6 MWT Genetic Sleep Disorder Resea [facility] Other*[id number] 08/27/2011 01/18/2016 Routine general medical exam ination [...] as of this encounter (statuses as of 01/28/2024) Immunizations Name Administration Dates Next Due COVID-19 [...] 07 TDAP (age 10 and older)(Boostrix) 08/31/2020 TDAP, Age 7 and older, IM (Adacel) 05/19/2010, documented as of this encounter Social History Tobacco Use Types Packs/Day Years Used Date Smoking Tobacco: Former Cigarettes 2 30 0 07/29/1981 - 07/29/2011 Passive Smoke Exposure: Never Smokeless Tobacco: Never Alcohol Use Standard Drinks/Week Comments No 0 (1 standard drink = 0.6 oz pur e alcohol) PHQ-2 Answer Date Recorded PHQ Adult Total Score 0 06/25/2023 Hunger Vital Sign Answer Date Recorded Within the past 12 months, y ou worried that your food would run out before you got the money to buy more. Never true 07/03/19 24 Within the past 12 months, t he food you bought just didn't last and you didn't have money to get more. Never true 07/03/2023 Childcare Answer Date Recorded Do you feel overwhelmed with taking care of a child, family member or friend? No 07/03/2023 Does your family need help f inding childcare? (Household - for ages 0-17 years) Not on file 07/03/2023 Clothing Answer Date Recorded Have you been unable to get clothing when it was really needed? No 07/03/2023 Is your family able to get c lothes or diapers when needed? (Household - for ages 0-17 years) Not on file 07/03/2023 Personal Safety Answer Date Recorded Do you feel unsafe or have concerns for your saf ety? No 07/03/2023 Do you have concerns for you r family's safety? (Household - for ages 0-17 years) Not on file 07/03/2023 Utilities Answer Date Recorded Do you have trouble paying y our heating, water, or electric bill? No 07/03/2023 Is your family able to pay t he heat, water, or electric bill? (Household - for ages 0-17 years) Not on file 07/03/2023 Does your family have access to good internet? (Household - for ages 0-17 years) Not on file 07/03/2023 Employment Status Answer Date Recorded Are you unemployed or without regular income? No 07/03/2023 Does the household have a rustlar source of income? (Household - for ages 0-17 years) Not on file 07/03/2023 Social Connections Answer Date Recorded How often do you feel lonely or isolated from th ose around you? Rarely 07/03/2023 Financial Resource Strain Answer Date R ecorded Do you have any trouble payi ng for your medications, or do you think you might in the future? No 07/03/2023 Does your family have troubl e paying for medicine? (Household - for ages 0-17 years) Not on file 07/03/2023 Transportation Needs Answer Date Record ed READ ONLY Do you have troubl e getting a ride to medical visits or work? Often True 07/03/2023 Does your family have a hard time getting a ride to doctors visits? (Household - for ages 0-17 years) Not on file 07/03/2023 Has lack of transportation k ept you from medical appointments, meetings, work, or from getting things needed for daily living? Check all that apply. (Adult - for ages 18 years and over) Not on file 07/03/2023 Do you (or your family) have trouble finding or paying for a ride (transportation)? (Household - for ages 0-17 years) Not on file 07/03/2023 Housing Stability Answer Date Recorded Do you currently live in a s helter or have no steady place to sleep at night? No 07/03/2023 READ ONLY Do you think you a re at risk of becoming homeless? No 07/03/2023 Does your family worry about paying for your home or becoming homeless? (Household - for ages 0-17 years) Not on file 0 07/03/2023 Are you homeless or worried that you might be in the future? (Adult - for ages 18 years and over) Not on file Are you (or your family) michelle eless or worried that you might be in the future? (Household - for ages 0-17 years) Not on file Food Insecurity Answer Date Recorded Do you need food for this week? No 07/03/2023 Are you able to get enough f ood for your family? (Household - for ages 0-17 years) Not on file 07/03/2023 Does your family need food t his week? (Household - for ages 0-17 years) Not on file 07/03/2023 Do you always have enough fo od for your family? (Household - for ages 0-17 years) Not on file 07/03/2023 Sex and Gender Information Value Date Recorded Sex Assigned at Female 07/03/2023 11:42 AM EST Gender Identity Female 07/03/2023 11:42 AM EST Sexual Orientation Straight 07/03/2023 11 :42 AM EST Job Start Date Occupation Industry Not on file Not on file Not on file documented as of this encounter Miscellaneous Notes * Telephone Encounter - Lisset Blanco trucksmith - 01/28/2024 2:43 PM EDT Pharmacy calling to confirm the dosage of the patient's garlic prescription. Lisset Quiroga [employer] Extension Specialist II [facility] 01/28/2024 2:44 PM documented in this encounter Plan of Treatment Upcoming Encounters Date Type Department Care Team (Late st Contact Info) Description 03/09/2024 11:00 AM EDT Office Visit [address] [address] Patti Posadas MD [address] [place] [address] 05/20/2024 11:40 AM EST Office Visit Nephrology, Michael Dooley [address] [facility] [place] [address] Dre Felix [facility] [address] [facility] [id number] Scheduled Procedures Name Priority Associated Diagnoses Date/Ti me COLONOSCOPY FLEXIBLE PROXIMAL DIAGNOSTIC Recall History of colon polyps Health Maintenance Due Date Last Done Comments Alpha-1 Antitrypsin 12/20/1967 Fecal Occult Blood Test 1994 Sigmoidoscopy 1994 Adult Wellness Visit 03/26/2018 03/26/2017 Cologuard 05/13/2020 05/13/2017 Colonoscopy 01/28/2023 01/28/2018, 01/15, 10/13/2013, Additional history exists Colorectal Cancer Screening 01/28/2023 Mammogram 02/06/2023 02/06/2022, 01/16, 01/24/2022, Additional history exists COVID-19 Vaccine ( season) 2023 05/02/2021, 08/10/2020, 07/13/2020 Influenza Vaccine (FLU shot) (#1) 2024 02/23/2023, 02/23/2022, 03/10/2021, Additional history exists B-12 03/04/2024 03/04/2023, 08/15, 02/22/2021, Additional history exists Diabetic Foot Exam 03/04/2024 03/04/2023, 0 02/07/2021, 02/10/2020, Additional history exists Albumin/Creatinine Ratio 06/11/20242 023, 08/28/2022, 08/14/2021, Additional history exists Diabetic Eye Exam 06/11/2024 06/11/2023, , 08/08/2021, Additional history exists Depression Monitoring 06/25/2024 06/25/2023 GFR 06/26/2024 12/25/2023, 07/19, 06/11/2023, Additional history exists HbA1c 06/26/2024 12/25/2023, 07/19, 03/04/2023, Additional history exists CKD PHOS USE SMARTSET 55968 08/12/202407/19, 03/12/2022, 02/22/2021, Additional history exists CKD HGB USE SMARTSET 32559 12/24/202412/24, 12/25/2023, 03/04/2023, Additional history exists TSH 12/24/2024 12/25/2023, 02/15, 08/28/2022, Additional history exists O2 ASSESSMENT COMPLETED IN PAST YEAR FOR COPD 01/01/2025 01/02/2024 Lipid Panel 06/11/2028 06/11/2023, 02/16, 02/22/2021, Additional history exists DTaP,Tdap,and Td Vaccines (4 - Td or Tdap) 08/31/2030 08/31/2020, 05/19/2010, 07/20/2003 Hepatitis C Screening Completed 11/15/2014 RETIRED - COLONOSCOPY-EVERY 5 YRS AGES 18-100 Discontinued 01/28/2018, 01/28/2018, 10/13/2013, Additional history exists Lung Cancer Screening Completed 09/26/2021 , 09/20/2020, 09/18/2017 (Declined) Pneumococcal Vaccine: 65+ Years Completed 06/22/2023, 08/27/2016, 08/16/2014, Additional history exists DXA Scan Discontinued HPV (Gardasil) Vaccine Aged Out No lo nger eligible based on patient's age to complete this topic Hepatitis B Vaccine Aged Out No longe r eligible based on patient's age to complete this topic MENINGOCOCCAL (MENACTRA/MENVEO) Aged Out No longer eligible based on patient's age to complete this topic Zoster Vaccines Discontinued documented as of this encounter Medical Devices Not on filedocumented as of this encounter Care Teams Roading Engineer Relationship Specialty Start Date End Date Patti Posadas MD [address] [place] [address] PCP - General Internal Medicine 01/18/22 documented as of this encounter
--- OUTSIDE RECORDS SUMMARY | 2024-02-17 16:45 | External Medical Summary | Summary of Care ---
Author Name Unknown Organization [facility] Address [address] [place] [address] Phone [phone] Care Team Providers Care Legislative Aide Name Role Phone Patti Posadas MD Primary Care Provider [phone] Reason for Referral * Evaluate & Treat - Unlimited Visits (Within 10 days (routine)) - Authorized Specialty Diagnoses / Procedures Referred By Contac t Referred To Contact Physical Therapy / Physical Medicine And Rehab Diagnoses DDD (degenerative disc disease), lumbar Neck pain Leg weakness, bilateral Patti Posadas MD [address] [place] [address] Referral ID Status Reason Start Date Expiration Date Visits Requested Visits Authorized [id number] Authorized Specialty Services Required 01/02/2024 999 999 Question Answer Referral Priority Within 10 days (routine) Where should this appointment be scheduled? [facility] Reason for Visit * Reason Comments Hospital Follow-Up Pt states that she i s here for a ER follow up Encounter Details Date Type Department Care Team (Late st Contact Info) Description 01/02/2024 9:20 AM EDT Office Visit [facility] [address] [place] [address] Patti Posadas MD [address] [place] [address] Labile blood pressure*; Tachycardia; Hypotension, unspecified hypotension type; Orthostatic hypotension; HTN, GOAL BELOW 140/90; DDD (degenerative disc disease), lumbar; Neck pain; Leg weakness, bilateral; Type 2 diabetes mellitus with hemoglobin A1c goal of less than 7.0% ([facility]); Chronic kidney disease, stage 3a ([facility]) Allergies Active Allergy Reactions Criticality Noted Date Comments Amoxicillin-Pot Clavulanate Other (Please comment) 01/14/2015 Severe Yeast infection Morphine And Codeine Unknown 02/19/2003 Codeine makes her vomit Sulfa Antibiotics Edema face/lips/tongue,Oth er (Please comment) High 02/19/2003 Headache documented as of this encounter (statuses as of 01/02/2024) Medications Medication Sig Dispensed Refills Start Date End Date Status PERPHENAZINE 2 MG PO TABS one to two tablets at bedtime 02/09/2014 Active LORAzepam (ATIVAN) 0.5 MG Tablet Take 1 Tablet by mouth at bedtime as needed for Anxiety or Insomnia. 30 Tab 0 08/22/2015 Active Home-3 Fatty Acids (FISH OIL) 1200 MG CAPS Take 1 Cap by mouth daily. Active doxepin (SINEQUAN) 25 MG Capsule Take 1 Cap by mouth at bedtime. 90 Cap 3 05/15/2017 Active Ipratropium-Albuter ol 20-100 MCG/ACT Inhalation Aerosol Solution (Combivent Respimat) (1) inhalation 4 times daily - please note change 18 g 3 06/19/2021 Active Additional Information Patient not taking.Reported on 09/04/2023 hydrOXYzine HCl 25 MG Oral Tablet Take 1 Tablet by mouth 2 times a day as needed. 01/04/2022 Active CPAP every night at bedtime. Active Nystatin 159685 UNIT/GM External CreamIndications:Ca ndidal skin infection Apply topically to affected area 2 times a day. for two weeks. 60 g 1 07/03/2022 Active Citalopram Hydrobromide 10 MG Oral Tablet (CeleXA) 12/11/2022 Active Citalopram Hydrobromide 20 MG Oral Tablet (CeleXA) 12/11/2022 Active Vilazodone HCl 20 MG Oral Tablet [...] NOSTRIL DAILY 48 g 3 07/18/2023 Active Fluticasone-Salmete rol 250-50 MCG/ACT Inhalation Aerosol [...] min 60 Tablet 5 08/06/2023 Active Nystatin 785981 UNIT/GM External Powder (Nystop)Indications :Candidal skin infection [...] 18 g 5 11/14/2023 Active Spacer/Aero-Holding Chambers DeviceIndications:C OPD, group B, by GOLD 2017 classification ([facility]) Use with albuterol inhaler. 1 Each 11/19/2023 [...] Calcium 10 MG Oral Tablet (Lipitor)Indication s:Dyslipidemia Take 1 Tablet by mouth in the [...] Triamcinolone Acetonide 0.5 % External Cream (Aristocort)Indicat ions:Senior Manufacturing Technician's papule Apply 0.5 g topically to affected area in the morning and 0.5 g before bedtime. To affected area.. 60 g 1 2023 Active tiZANidine HCl 4 MG Oral Tablet (Zanaflex) Take 1 Tablet by mouth every 8 hours as needed for Muscle spasms. 90 Tablet 3 01/02/2024 Active tiZANidine HCl 4 MG Oral Tablet (Zanaflex) Take 1 Tablet by mouth every 8 hours as needed for Muscle spasms. 90 Tablet 2 07/05/2023 Discontinu ed(Refill) documented as of this encounter (statuses as of 01/02/2024) Active Problems Problem Noted Date Diagnosed Date [...] disorder) 03/25/2018 Gastroesophageal reflux disease 03/25/2018 Old CA (myocardial infarction) 03/25/2018 Severe obesity with body [...] as of this encounter (statuses as of 01/02/2024) Resolved Problems Problem Noted Date Diagnosed Date [...] and 6 MWT Genetic Sleep Disorder Resea [facility] Other*[id number] 08/27/2011 01/18/2016 Routine general medical exam ination [...] as of this encounter (statuses as of 01/02/2024) Immunizations Name Administration Dates Next Due COVID-19 [...] 07,03/21/2004,04/07/2003 TDAP (age 10 and older)(Boostrix) 08/31/2020 TDAP, [...] No 07/03/2023 Does the household have a re gular source of income? (Household - for ages [...] Sign Reading Time Taken Comments Blood Pressure 122/72 01/02/2024 9:24 AM EDT Pulse 73 01/02/2024 9:24 AM EDT Temperature 36.7 C (98 F) 01/02/2024 9:24 AM EDT Respiratory Rate 16 01/02/2024 9:24 AM EDT Oxygen Saturation 96% 01/02/2024 9:24 AM EDT Inhaled Oxygen Concentration - - Weight 91.9 kg (202 lb 9.6 oz) 01/02/2024 9:24 A M EDT Height 152.4 cm (5') 01/02/2024 9:24 AM EDT Body Mass Index 39.57 01/02/2024 9:24 AM EDT documented in this encounter Progress Notes * Patti Posadas MD - 01/02/2024 9:38 AM EDT Subjective Elsy Palmer is a 73 year old female. Chief Complaint Patient presents with Hospital Follow-Up Pt states that she is here for a ER follow up HPI: Here for ER f/u Same situation with hypotension and tachycardia Labile BP, HR , with known HTN, hx of CA, orthostatic hypotension Taking meds, reviewed Also discussed with staffs - checking BP HR in 30 min & one hour again unless pt shows clinicaldecline ( loss of consciousness, stroke sx etc ) PT referral again for her progressing lower back, worse left sided neck , upper back pain and also for legs weakness Will f/u with pain medicine for possible spinal injection Type 2 Dm, CKD, all other conditions are stable per blood tests PMH: Patient Active Problem List Diagnosis Insomnia DDD (degenerative disc disease), lumbar HTN, GOAL BELOW 140/90 Dyslipidemia, goal LDL below 100 Centrilobular emphysema ([facility]) Acquired hypothyroidism Mild persistent asthma without complication Type 2 diabetes mellitus with hemoglobin A1c goal of less than 7.0% ([facility]) Severe obesity with body mass index (BMI) of 35.0 to 39.9 with serious comorbidity ([facility]) GERARDO (generalized anxiety disorder) Gastroesophageal reflux disease Old CA (myocardial infarction) Periodic limb movement disorder (PLMD) Need for prophylactic vaccination and inoculation against influenza Nocturnal hypoxemia History of tobacco abuse Benign hypertension with stage 3a chronic kidney disease (HCC) Type 2 diabetes mellitus with stage 3a chronic kidney disease (HCC) Chronic kidney disease, stage 3a ([facility]) COPD, group B, by GOLD 2017 classification ([facility]) DDD (degenerative disc disease), thoracic Orthostatic hypotension Moderate episode of recurrent major depressive disorder ([facility]) Labile blood pressure Current Outpatient Medications Medication Sig Dispense Refill PERPHENAZINE 2 MG PO TABS one to two tablets at bedtime LORAzepam (ATIVAN) 0.5 MG Tablet Take 1 Tablet by mouth at bedtime as needed for Anxiety or Insomnia. 30 Tab 0 Home-3 Fatty Acids (FISH OIL) 1200 MG CAPS Take 1 Cap by mouth daily. doxepin (SINEQUAN) 25 MG Capsule Take 1 Cap by mouth at bedtime. 90 Cap 3 hydrOXYzine HCl 25 MG Oral Tablet Take 1 Tablet by mouth 2 times a day as needed. CPAP every night at bedtime. Nystatin 839897 UNIT/GM External Cream Apply topically to affected area 2 times a day. for two weeks. 60 g 1 Citalopram Hydrobromide 10 MG Oral Tablet (CeleXA) Citalopram Hydrobromide 20 MG Oral Tablet (CeleXA) Vitamin E 180 MG (400 UNIT) Oral [...] BY MOUTH EVERY DAY 28 Capsule 11 Aspirin Low Dose 81 MG Oral Tablet Delayed Release (aspirin enteric coated) TAKE ONE TABLET BY MOUTH EVERY MORNING 90 Tablet 3 NIFEdipine ER 30 MG Oral Tablet Extended Release 24 Hour (Adalat CC) Take 1 Tablet by mouth in the morning. 90 Tablet 3 Fluticasone Propionate 50 MCG/ACT Nasal Suspension (Flonase) INSTILL 2 SPRAYS INTO EACH NOSTRIL DAILY 48 g 3 Fluticasone-Salmeterol 250-50 MCG/ACT Inhalation Aerosol Powder Breath Activated (Advair Diskus) Inhale 1 Puff by mouth in the morning and 1 Puff before bedtime. Rinse mouth after use.. 180 Each 3 Midodrine HCl 2.5 MG Oral Tablet (Proamatine) Take one tab twice daily as needed for orthostatic hypotension less than 80/50 After taking it, please repeat check BP in 30 min 60 Tablet 5 Nystatin 258113 UNIT/GM External Powder (Nystop) Apply topically to affected area 3 times a day. 30g 3 Diclofenac Sodium 1 % External Gel (Voltaren) Apply 1 g topically to affected area in the morning and 1 g before bedtime. 100 g 3 Depend Underwear X-Large Use 3-4 depends per day 130 Each 11 Albuterol Sulfate (2.5 MG/3ML) 0.083% Inhalation Nebulization Solution (Proventil) INHALE 1 VIAL VIA NEBULIZER EVERY 4 HOURS NEEDED FOR WHEEZING OR SHORTNESS OF BREATHE (CHEST PRESSURE) 300 mL 5 Mirtazapine 30 MG Oral Tablet (Remeron) Take 1 Tablet by mouth at bedtime. Carvedilol 6.25 MG Oral Tablet (Coreg) Take 1 Tablet by mouth in the morning and 1 Tablet before bedtime. With meals.. 180 Tablet 3 Albuterol Sulfate HFA 108 (90 Base) MCG/ACT Inhalation Aerosol Solution Inhale 2 Puffs by mouth every 6 hours as needed (SOB cough). 18 g 5 Spacer/Aero-Holding Chambers Device Use with albuterol inhaler. 1 Each 0 Olopatadine HCl 0.2 % Ophthalmic Solution Instill 1 Drop into eye in the morning. 15 mL 3 Garlic 1000 MG Oral Capsule Take 1 Capsule by mouth in the morning. 90 Capsule 2 Levothyroxine Sodium 125 MCG Oral Tablet (Levoxyl) TAKE ONE TABLET BY MOUTH EVERY DAY AT LEAST 30 MINUTES PRIOR TO BREAKFAST OR OTHER MEDICATIONS 90 Tablet 2 Montelukast Sodium 10 MG Oral Tablet (Singulair) Take 1 Tablet by mouth in the morning. In the morning.. 90 Tablet 2 Cetirizine HCl 10 MG Oral Tablet (ZyrTEC) Take 1 Tablet by mouth in the morning. In the morning.. 90 Tablet 2 Atorvastatin Calcium 10 MG Oral Tablet (Lipitor) Take 1 Tablet by mouth in the morning. In the morning.. 90 Tablet 2 metFORMIN HCl 500 MG Oral Tablet (Glucophage) TAKE ONE TABLET BY MOUTH TWICE DAILY with morning andevening meals. 180 Tablet 2 Famotidine 20 MG Oral Tablet (Pepcid) Take 1 Tablet by mouth in the morning and 1 Tablet before bedtime. 180 Tablet 2 Turmeric Curcumin 500 MG Oral Capsule Take 1 Capsule by mouth in the morning. Every morning.. 90 Capsule 2 Triamcinolone Acetonide 0.5 % External Cream (Aristocort) Apply 0.5 g topically to affected area inthe morning and 0.5 g before bedtime. To affected area.. 60 g 1 tiZANidine HCl 4 MG Oral Tablet (Zanaflex) Take 1 Tablet by mouth every 8 hours as needed for Muscle spasms. 90 Tablet 3 Ipratropium-Albuterol 20-100 MCG/ACT Inhalation Aerosol Solution (Combivent Respimat) (1) inhalation 4 times daily - please note change (Patient not taking: Reported on 09/04/2023) 18 g 3 Vilazodone HCl 20 MG Oral [...] performed by Ines Bailey DO at [facility] COLONOSCOPY, DIAGNOSTIC (RECTUM) 01/28/2018 diverticulosis, repeat 5 yrs/COLONOSCOPY FLEXIBLE PROXIMAL DIAGNOSTIC performed by Ines Bailey, at [facility] DOBUTAMINE STRESS ECHO 05/20 equivocal stress findings; negative stress echo findings LEFT HEART CATHETERIZATION 1996 [facility] [place], dr roca REMOVAL OF APPENDIX 15 y/o REMOVE CATARACT, INSERT LENS PROSTH 1992, 1995 Rt/Lt REPAIR INITIAL INGUINAL HERNIA REDUCIBLE AGE 5 OR MORE Left 08/05/2017 08/05/2017 repair of left inguinal hernia - [facility] Dr. 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 Occupation: disability Comment: DJD, mood disorder Tobacco Use Smoking status: Former Current packs/day: 0.00 Average packs/day: 2.0 packs/day for 30.0 years (60.0 ttl pk-yrs) Types: Cigarettes Start date: 07/29/1981 Quit date: 07/29/2011 Years since quittin.4 Passive exposure: Never Smokeless tobacco: Never Vaping Use Vaping status: Never Used Substance and Sexual Activity Alcohol use: No Drug use: No Sexual activity: Not Currently Other Topics Concern Not on file Social History Narrative Not on file Social Determinants of Health Financial Resource Strain: Low Risk (07/03/2023) Financial Resource Strain Do you have any trouble paying for your medications, or do you think you might in the future? (Adult - for ages 18 years and over): No Does your family have trouble paying for medicine? (Household - for ages 0-17 years): Not on file Food Insecurity: No Food Insecurity (07/03/2023) Food Insecurity Do you need food for this week? (Adult - for ages 18 years and over): No Are you able to get enough food for your family? (Household - for ages 0-17 years): Not on file Does your family need food this week? (Household - for ages 0-17 years): Not on file Do you always have enough food for your family? (Household - for ages 0-17 years): Not on file Transportation Needs: Unmet Transportation Needs (07/03/2023) Transportation Needs Do you have trouble getting a ride to medical visits or work? (Adult - for ages 18 years and over):Often True Does your family have a hard time getting a ride to doctors visits? (Household - for ages 0-17 years): Not on file Has lack of transportation kept you from medical appointments, meetings, work, or from getting things needed for daily living? Check all that apply. (Adult - for ages 18 years and over): Not on file Do you (or your family) have trouble finding or paying for a ride (transportation)? (Household - for ages 0-17 years): Not on file Social Connections: Socially Integrated (07/03/2023) Social Connections How often do you feel lonely or isolated from those around you? (Adult - for ages 18 years and over): Rarely Housing Stability: Low Risk (07/03/2023) Housing Stability Do you currently live in a care home or have no steady place to sleep at night? (Adult - for ages 18 years and over): No Do you think you are at risk of becoming homeless? (Adult - for ages 18 years and over): No Does your family worry about paying for your home or becoming homeless? (Household - for ages 0-17 years): Not on file Are you homeless or worried that you might be in the future? (Adult - for ages 18 years and over): Not on file Are you (or your family) homeless or worried that you might be in the future? (Household - for ages0-17 years): Not on file Review of Systems Constitutional: Positive for activity change (declining due to low BP, afraid of walking) and fatigue. Negative for appetite change, chills, diaphoresis, fever and unexpected weight change. Respiratory: Negative for cough, chest tightness, shortness of breath and wheezing. Cardiovascular: Positive for palpitations (occ). Negative for chest pain and leg swelling. Gastrointestinal: Negative for abdominal distention, abdominal pain, nausea and vomiting. Endocrine: Negative. Musculoskeletal: Positive for arthralgias, back pain, gait problem (walker), neck pain and neck stiffness. Neurological: Positive for dizziness (when she gets low BP), weakness (legs), light-headedness and numbness. Negative for tremors, seizures, syncope, speech difficulty and headaches. Psychiatric/Behavioral: Positive for dysphoric mood. Negative for agitation and behavioral problems. The patient is nervous/anxious. Objective BP 122/72 | Pulse 73 | Temp 36.7 C (98 F) (Tympanic) | Resp 16 | Ht 1.524 m (5') | Wt 91.9 kg (202 lb 9.6 oz) | SpO2 96% | BMI 39.57 kg/m | BSA 1.97 m Physical Exam Constitutional: General: She is [...] or rales. Chest: Chest wall: No tenderness. Musculoskeletal: General: Tenderness present. Cervical back: Tenderness present. Right lower leg: No edema. Left lower leg: No edema. Neurological: General: No focal deficit present. Mental Status: She is alert and oriented to person, place, and time. Cranial Nerves: No cranial nerve deficit. Psychiatric: Behavior: Behavior normal. Comments: Mild depression anxiety ASSESSMENT/PLAN: Labile blood pressure (Primary) Tachycardia Hypotension, unspecified hypotension type Orthostatic hypotension HTN, GOAL BELOW 140/90 DDD (degenerative disc disease), lumbar - PHYSICAL THERAPY REFERRAL OP Neck pain - PHYSICAL THERAPY REFERRAL OP Leg weakness, bilateral - PHYSICAL THERAPY REFERRAL OP Type 2 diabetes mellitus with hemoglobin A1c goal of less than 7.0% (HCC) Chronic kidney disease, stage 3a (HCC) Other orders - tiZANidine HCl 4 MG Oral Tablet (Zanaflex); Take 1 Tablet by mouth every 8 hours as needed for Muscle spasms. Cont meds V/S check again in 30 min, 1 hours as discussed Observe her clinical sx PT Fall precaution Zanaflex refill Deep breathing technique Patti Posadas MD documented in this encounter Nursing Notes * Minnie Evans LPN - 01/02/2024 9:24 AM EDT Elsy Palmer is a 73 year old female who presents today for \\ Chief Complaint Patient presents with Hospital Follow-Up Pt states that she is here for a ER follow up documented in this encounter Plan of Treatment Upcoming Encounters Date Type Department Care Team (Late st Contact Info) Description 03/09/2024 11:00 AM EDT Office Visit [facility] [address] [place] [id number] Patti Posdaas MD [address] [place] [address] 05/20/2024 11:40 AM EST [facility] [address] [place] [id number] Dre Felix MD [address] [place] [id number] Scheduled Procedures Name Priority Associated Diagnoses Date/Ti me COLONOSCOPY FLEXIBLE PROXIMAL DIAGNOSTIC Recall History of colon polyps Scheduled Referrals Name Type Priority Associated Diagnoses Orde r Schedule PHYSICAL THERAPY REFERRAL OP Referral Within 10 days (routine) DDD (degenerative disc disease), lumbar Neck pain Leg weakness, bilateral Ordered: 01/02/2024 Health Maintenance Due Date Last Done Comments Alpha-1 Antitrypsin 12/20/1967 Fecal Occult Blood Test 1994 Sigmoidoscopy 1994 Cologuard 05/13/2020 05/13/2017 Colonoscopy 01/28/2023 01/28/2018, 01/15, 10/13/2013, Additional history exists Colorectal Cancer Screening 01/28/2023 Mammogram 02/06/2023 02/06/2022, 01/16, 01/24/2022, Additional history exists COVID-19 Vaccine ( season) 2023 05/02/2021, 08/10/2020, 07/13/2020 *CXR OR CT FOR COPD EVER 12/29/2023 Influenza Vaccine (FLU shot) (#1) 2024 02/23/2023, 02/23/2022, 03/10/2021, Additional history exists B-12 03/04/2024 03/04/2023, 08/15, 02/22/2021, Additional history exists Diabetic Foot Exam 03/04/2024 03/04/2023, 0 02/07/2021, 02/10/2020, Additional history exists Albumin/Creatinine Ratio 06/11/2024 023, 08/28/2022, 08/14/2021, Additional history exists Diabetic Eye Exam 06/11/2024 06/11/2023, , 08/08/2021, Additional history exists Depression Monitoring 06/25/2024 06/25/2023 GFR 06/26/2024 12/25/2023, 07/19, 06/11/2023, Additional history exists HbA1c 06/26/2024 12/25/2023, 07/19, 03/04/2023, Additional history exists CKD PHOS USE SMARTSET 04049 08/12/202407/19, 03/12/2022, 02/22/2021, Additional history exists CKD HGB USE SMARTSET 91075 12/24/202412/24, 12/25/2023, 03/04/2023, Additional history exists TSH 12/24/2024 12/25/2023, 02/15, 08/28/2022, Additional history exists O2 ASSESSMENT COMPLETED IN PAST YEAR FOR COPD 01/01/2025 01/02/2024 Lipid Panel 06/11/2028 06/11/2023, 02/16, 02/22/2021, Additional history exists DTaP,Tdap,and Td Vaccines (4 - Td or Tdap) 08/31/2030 08/31/2020, 05/19/2010, 07/20/2003 Hepatitis C Screening Completed 11/15/2014 *BASELINE EKG FOR HTN Completed 02/28/2016 RETIRED - COLONOSCOPY-EVERY 5 YRS AGES 18-100 [...] as of this encounter Visit Diagnoses Diagnosis Labile blood pressure- Primary Elevated blood pressure reading without diagnosis of hypertension Tachycardia Tachycardia, unspecified Hypotension, unspecified hypotension type Orthostatic hypotension HTN, GOAL BELOW 140/90 Unspecified essential hypertension DDD (degenerative disc disease), lumbar Degeneration of lumbar or lumbosacral intervertebral disc Neck pain Cervicalgia Leg weakness, bilateral Other musculoskeletal symptoms referable to limbs Type 2 diabetes mellitus with hemoglobin A1c goal of less than 7.0% (HCC) Chronic kidney disease, stage 3a (HCC) documented in this encounter Care Teams Legislative Aide Relationship Specialty Start Date End Date Patti Posadas MD [address] [place] [id number] PCP - General Internal Medicine 01/18/22 documented as of this encounter"
--- OUTSIDE RECORDS SUMMARY | 2024-02-17 16:46 | External Medical Summary ---
Author Name Unknown Address Unknown Organization [id number]:[facility] [place] [place] - [address] [place] [address] [address] Laboratory Report Ordering Provider Test Date Status MATEO KENDRICK 12/25/2023 08:55:05 Final Observation Date Value Abnormality Reference (Units ) Status SYNC LEUKOCYTES IN BLOOD BY AUTOMATED COUNT 12/25/2023 08:55:05 8.23 4.00-10.80 (K/uL) Final Segs 12/25/2023 08:55:05 57.7 40.0-75.0 (%) Final Lymphs % 12/25/2023 08:55:05 24.7 18.0-42.0 (%) Final Monos 12/25/2023 08:55:05 12.5 Above high normal 1.0-11.0 (%) Final Eosinophils 12/25/2023 08:55:05 4.1 0.0-6.0 (%) Final Basos 12/25/2023 08:55:05 0.6 0.0-2.0 (%) Final Immature Granulocyte, Percent 12/25/2023 08:55:05 0.4 0.0-2.0 (%) Final Absolute Segs 12/25/2023 08:55:05 4.75 1.80-7.70 (K/uL) Final Lymphs, absolute 12/25/2023 08:55:05 2.03 1.00-4.80 (K/ul) Final Monos, Abs 12/25/2023 08:55:05 1.03 0.00-1.10 (K/uL) Final Eos, Abs 12/25/2023 08:55:05 0.34 0.00-0.70 (K/uL) Final Basos, Abs 12/25/2023 08:55:05 0.05 0.00-0.20 (K/uL) Final Immature Granulocytes, Number 12/25/2023 08:55:05 0.03 0.00-0.20 (K/uL) Final Performing Location [facility] [place], [place] - [address] [facility] [address]
--- OUTSIDE RECORDS SUMMARY | 2024-02-17 16:46 | External Medical Summary | Summary of Care ---
Author Name Unknown Organization [facility] Address [address] [place] [address] Phone [phone] Care Team Providers Care Secretary Bookkeeper Name Role Phone Patti Posadas MD Primary Care Provider [phone] Reason for Visit * Reason Onset Date Comments Pharmacy Questions 12/17/2023 Encounter Details Date Type Department Care Team (Late st Contact Info) Description 12/17/2023 Telephone [facility] [address] [place] [address] Patti Posadas MD [address] [place] [address] Pharmacy Questions Allergies Active Allergy Reactions Criticality Noted Date Comments Amoxicillin-Pot Clavulanate Other (Please comment) 01/14/2015 Severe Yeast infection Morphine And Codeine Unknown 02/19/2003 Codeine makes her vomit Sulfa Antibiotics Edema face/lips/tongue,Oth er (Please comment) High 02/19/2003 Headache documented as of this encounter (statuses as of 12/18/2023) Medications Medication Sig Dispensed Refills Start Date End Date Status PERPHENAZINE 2 MG PO TABS one to two tablets at bedtime 02/09/2014 Active LORAzepam (ATIVAN) 0.5 MG Tablet Take 1 Tablet by mouth at bedtime as needed for Anxiety or Insomnia. 30 Tab 0 08/22/2015 Active [place]-3 Fatty Acids (FISH OIL) 1200 MG CAPS [...] CPAP every night at bedtime. Active Nystatin 198794 UNIT/GM External CreamIndications:Can didal skin infection Apply [...] for Muscle spasms. 90 Tablet 2 07/05/2023 Active NIFEdipine ER 30 MG Oral Tablet [...] min 60 Tablet 5 08/06/2023 Active Nystatin 672189 UNIT/GM External Powder (Nystop)Indications: Candidal skin infection [...] the morning. 90 Capsule 2 12/16/2023 Active Triamcinolone Acetonide 0.5 % External Cream (Aristocort)Indicati ons:Financial Reserve Clerk's papule Apply topically to affected area 2 times a day. To affected area. 60 g 1 12/16/2023 Active Levothyroxine Sodium 125 MCG Oral [...] Every morning.. 90 Capsule 2 12/16/2023 Active documented as of this encounter (statuses as of 12/18/2023) Active Problems Problem Noted Date Diagnosed Date [...] disorder) 03/25/2018 Gastroesophageal reflux disease 03/25/2018 Old [place] (myocardial infarction) 03/25/2018 Severe obesity with body [...] as of this encounter (statuses as of 12/18/2023) Resolved Problems Problem Noted Date Diagnosed Date [...] and 6 MWT Genetic Sleep Disorder Resea [facility] Other*[id number] 08/27/2011 01/18/2016 Routine general medical exam ination [...] as of this encounter (statuses as of 12/18/2023) Immunizations Name Administration Dates Next Due COVID-19 [...] 07/03/2023 Does the household have a re lar source of income? (Household - for ages [...] encounter Miscellaneous Notes * Telephone Encounter - Crystal Darling PHARM Tech - 12/17/2023 9:48 AM EDT Pharmacy is calling because pt's prescription for triamcinolone cream was sent with out a " max daily dose or a dose per application". Please clarify the directions for this medication and send a newprescription to [facility]. Thank you, Crystal Darling, [facility] Security Controls Assessor II [facility]) 12/17/2023,9:53 AM documented in this encounter Plan of Treatment Upcoming Encounters Date Type Department Care Team (Late st Contact Info) Description 01/02/2024 9:20 AM EDT Office Visit [facility] [address] [place] [address] Patti Posadas MD [address] [place] [address] 05/20/2024 11:40 AM EST Office Visit [facility] [address] [facility] [address] Dre Felix MD [address] [facility] [place] [address] Scheduled Procedures Name Priority Associated Diagnoses Date/Ti [...] Vaccine ( season) 2023 05/02/2021, 08/10/2020, 07/13/2020 GFR 02/10/2024 08/12/2023, 05/18, 03/04/2023, Additional history exists HbA1c 02/10/2024 08/12/2023, 02/15, 08/28/2022, Additional history exists Influenza Vaccine (FLU shot) (#1) 2024 02/23/2023, 02/23/2022, 03/10/2021, Additional history exists B-12 03/04/2024 03/04/2023, 08/15, 02/22/2021, Additional history exists CKD HGB USE SMARTSET 14953 03/04/202403/04, 12/17/2022, 12/17/2022, Additional history exists Diabetic Foot Exam 03/04/2024 03/04/2023, 0 02/07/2021, 02/10/2020, Additional history exists TSH 03/04/2024 03/04/2023, 08/15, 03/12/2022, Additional history exists Albumin/Creatinine Ratio 06/11/2024 023, 08/28/2022, 08/14/2021, Additional history exists Diabetic Eye Exam 06/11/2024 06/11/2023, , 08/08/2021, Additional history exists Depression Monitoring 06/25/2024 06/25/2023 CKD PHOS USE SMARTSET 35935 08/12/202407/19, 03/12/2022, 02/22/2021, Additional history exists O2 ASSESSMENT COMPLETED IN PAST YEAR FOR COPD 09/03/2024 09/04/2023 Lipid Panel 06/11/2028 06/11/2023, 02/16, 02/22/2021, Additional [...] filedocumented as of this encounter Care Teams Secretary Bookkeeper Relationship Specialty Start Date End Date Patti Posadas MD [address] [place] [address] PCP - General Internal Medicine 01/18/22 documented as of this encounter
--- OUTSIDE RECORDS SUMMARY | 2024-02-17 16:46 | External Medical Summary | Summary of Care ---
Author Name Unknown Organization [facility] Address [address] [place] [address] Phone [phone] Care Team Providers Care Computer Systems Technology Instructor Name Role Phone Patti Posadas MD Primary Care Provider [phone] Reason for Visit * Reason Onset Date Comments Pharmacy Questions 12/17/2023 Encounter Details Date Type Department Care Team (Late st Contact Info) Description 12/17/2023 Telephone [facility] [address] [place] [address] Patti Posadas MD [address] [place] [address] Pharmacy Questions Allergies Active Allergy Reactions Criticality Noted Date Comments Amoxicillin-Pot Clavulanate Other (Please comment) 01/14/2015 Severe Yeast infection Morphine And Codeine Unknown 02/19/2003 Codeine makes her vomit Sulfa Antibiotics Edema face/lips/tongue,Oth er (Please comment) High 02/19/2003 Headache documented as of this encounter (statuses as of 2023) Medications Medication Sig Dispensed Refills Start Date End Date Status PERPHENAZINE 2 MG PO TABS one to two tablets at bedtime 02/09/2014 Active LORAzepam (ATIVAN) 0.5 MG Tablet Take 1 Tablet by mouth at bedtime as needed for Anxiety or Insomnia. 30 Tab 0 08/22/2015 Active [place]-3 Fatty Acids (FISH OIL) 1200 MG CAPS [...] CPAP every night at bedtime. Active Nystatin 078270 UNIT/GM External CreamIndications:Ca ndidal skin infection Apply [...] min 60 Tablet 5 08/06/2023 Active Nystatin 536470 UNIT/GM External Powder (Nystop)Indications :Candidal skin infection [...] by GOLD 2017 classification ([facility]) Use with albuterol inhaler. 1 Each [...] Triamcinolone Acetonide 0.5 % External Cream (Aristocort)Indicat ions:Manager Math's papule Apply 0.5 g topically to affected area in the morning and 0.5 g before bedtime. To affected area.. 60 g 1 2023 Active Triamcinolone Acetonide 0.5 % External Cream (Aristocort)Indicat ions:Manager Math's papule Apply topically to affected area 2 times a day. To affected area. 60 g 1 12/16/2023 Discontinu ed(Refill) documented as of this encounter (statuses as of 2023) Active Problems Problem Noted Date Diagnosed Date [...] as of this encounter (statuses as of 2023) Resolved Problems Problem Noted Date Diagnosed Date [...] and 6 MWT Genetic Sleep Disorder Resea [facility] Other*[id number] 08/27/2011 01/18/2016 Routine general medical exam ination [...] as of this encounter (statuses as of 2023) Immunizations Name Administration Dates Next Due COVID-19 [...] Influenza, Split, I IV3, With Preserve, Inj 02/16/2015,02/16/2014,09/12/2012,1112/2010,05/19/2010,07/01/2009,04/29/20 07,03/21/2004,04/07/2003 TDAP (age 10 and older)(Boostrix) 08/31/2020 [...] as of this encounter Miscellaneous Notes * Addendum Note - Patti Posadas MD - 2023 10:52 AM EDTAddended by: PATTI POSADAS on: 2023 10:52 AM Modules accepted: Orders * Telephone Encounter - Patti Posadas MD - 2023 10:51 AM EDT Resent * Telephone Encounter - Crystal Darling PHARM Tech - 12/17/2023 9:48 AM EDT Pharmacy is calling because pt's prescription for triamcinolone cream was sent with out a " max daily dose or a dose per application". Please clarify the directions for this medication and send a newprescription to [facility]. Thank you, Crystal Darling, [facility] Adolescent Medicine Specialist II [facility]) 12/17/2023,9:53 AM documented in this encounter Plan of Treatment Upcoming Encounters Date Type Department Care Team (Late st Contact Info) Description 01/02/2024 9:20 AM EDT Office Visit [place] [address] [place] [address] Patti Posadas MD [address] [place] [address] 05/20/2024 11:40 AM EST Office Visit NephrologyMichael [address] [facility] [place] [address] Dre Felix MD [address] [place] [address] Scheduled Procedures Name Priority Associated Diagnoses Date/Ti [...] Additional history exists CKD HGB USE SMARTSET 27642 03/04/202403/04, 12/17/2022, 12/17/2022, Additional history exists Diabetic Foot Exam 03/04/2024 03/04/2023, 0 02/07/2021, 02/10/2020, Additional history exists TSH 03/04/2024 03/04/2023, 08/15, 03/12/2022, Additional history exists Albumin/Creatinine Ratio 06/11/2024 023, 08/28/2022, 08/14/2021, Additional history exists Diabetic Eye Exam 06/11/2024 06/11/2023, , 08/08/2021, Additional history exists Depression Monitoring 06/25/2024 06/25/2023 CKD PHOS USE SMARTSET 95988 08/12/202407/19, 03/12/2022, 02/22/2021, Additional history exists O2 [...] as of this encounter Visit Diagnoses Diagnosis Manager Math's papule documented in this encounter Care Teams Computer Systems Technology Instructor Relationship Specialty Start Date End Date Patti Posadas MD [address] [place] [address] PCP - General Internal Medicine 01/18/22 documented as of this encounter
--- OUTSIDE RECORDS SUMMARY | 2024-02-17 16:46 | External Medical Summary ---
Author Name Unknown Address Unknown Organization K01:[facility] - [address] [facility] [place] [address] Laboratory Report Ordering Provider Test Date Status MATEO KENDRICK 12/25/2023 08:55:05 Final Observation Date Value Abnormality Reference (Units ) Status BUN 12/25/2023 08:55:05 17 6-20 (mg/dL) Final Creatinine 12/25/2023 08:55:05 1.1 Above high normal 0.5-1.0 (mg/dL) Final Glomerular filtration rate/1.73 sq M.predicted [Volume Rate/Area] in Serum, Plasma or Blood by Creatinine-based formula (CKD-EPI) 12/25/2023 08:55:05 53 Below low normal >=60 (mL/min) Final eGFR is calculated based on the CKD-EPI 2020 equation Sodium 12/25/2023 08:55:05 140 135-146 (m mol/L) Final Potassium 12/25/2023 08:55:05 4.8 3.5-5.1 (m mol/L) Final Cl 12/25/2023 08:55:05 99 98-107 (mm ol/L) Final CO2 12/25/2023 08:55:05 26 22-32 (mmo l/L) Final Anion gap 12/25/2023 08:55:05 15 7-15 (mmol /L) Final Glucose 12/25/2023 08:55:05 106 70-120 (mg /dL) Final Albumin 12/25/2023 08:55:05 4.5 3.8-5.0 (g /dL) Final AST (Aspartate aminotransferase) 12/25/2023 08:55:05 26 10-35 (U/L) Fin al Alk Phos 12/25/2023 08:55:05 90 35-130 (U/ L) Final Bilirubin, Total 12/25/2023 08:55:05 0.3 <=1 .2 (mg/dL) Final Calcium 12/25/2023 08:55:05 10.2 8.4-10.2 ( mg/dL) Final Protein 12/25/2023 08:55:05 7.1 6.0-8.3 (g /dL) Final ALT (Alanine aminotransferase) 12/25/2023 08:55:05 38 Above high normal 10-35 (U/L) Final Performing Location [facility] - [address] [place] [address]
--- OUTSIDE RECORDS SUMMARY | 2024-02-17 16:46 | External Medical Summary | Summary of Care ---
Author Name Unknown Organization [facility] Address [address] [place] [address] Phone [phone] Care Team Providers Care Show Host Name Role Phone Patti Posadas MD Primary Care Provider [phone] Reason for Referral * Evaluate & Treat - Unlimited Visits (Within 10 days (routine)) - Authorized Specialty Diagnoses / Procedures Referred By Contac t Referred To Contact Physical Therapy / Physical Medicine And Rehab Diagnoses DDD (degenerative disc disease), lumbar Neck pain Leg weakness, bilateral Patti Posadas MD [address] [place] [address] Referral ID Status Reason Start Date Expiration Date Visits Requested Visits Authorized [id number] Authorized Specialty Services Required 01/02/[phone] Question Answer Referral Priority Within 10 days (routine) Where should this appointment be scheduled? [facility] Reason for Visit * Reason Comments Hospital Follow-Up Pt states that she i s here for a ER follow up Encounter Details Date Type Department Care Team (Late st Contact Info) Description 01/02/2024 9:20 AM EDT Office Visit [facility] [address] [place] [address] Patti Posadas MD [address] [place] [address] Labile blood pressure*; Tachycardia; Hypotension, unspecified hypotension type; Orthostatic hypotension; HTN, GOAL BELOW 140/90; DDD (degenerative disc disease), lumbar; Neck pain; Leg weakness, bilateral; Type 2 diabetes mellitus with hemoglobin A1c goal of less than 7.0% ([facility]); Chronic kidney disease, stage 3a ([facility]) Allergies Active Allergy Reactions Criticality Noted [...] or Insomnia. 30 Tab 0 08/22/2015 Active [place]-3 Fatty Acids (FISH OIL) 1200 MG CAPS [...] CPAP every night at bedtime. Active Nystatin 285905 UNIT/GM External CreamIndications:Ca ndidal skin infection Apply [...] min 60 Tablet 5 08/06/2023 Active Nystatin 820437 UNIT/GM External Powder (Nystop)Indications :Candidal skin infection [...] OPD, group B, by GOLD 2017 classification ([facility]) Use with albuterol inhaler. 1 Each [...] Triamcinolone Acetonide 0.5 % External Cream (Aristocort)Indicat ions:Wildlife Conservationist's papule Apply 0.5 g topically to affected [...] disorder) 03/25/2018 Gastroesophageal reflux disease 03/25/2018 Old [place] (myocardial infarction) 03/25/2018 Severe obesity with body [...] and 6 MWT Genetic Sleep Disorder Resea [facility] Other*[id number] 08/27/2011 01/18/2016 Routine general medical exam ination [...] HR , with known HTN, hx of UT, orthostatic hypotension Taking meds, reviewed Also discussed [...] Dyslipidemia, goal LDL below 100 Centrilobular emphysema ([facility]) Acquired hypothyroidism Mild persistent asthma without complication Type 2 diabetes mellitus with hemoglobin A1c goal of less than 7.0% ([facility]) Severe obesity with body mass index (BMI) of 35.0 to 39.9 with serious comorbidity ([facility]) GERARDO (generalized anxiety disorder) Gastroesophageal reflux disease Old [place] (myocardial infarction) Periodic limb movement disorder (PLMD) Need for prophylactic vaccination and inoculation against influenza Nocturnal hypoxemia History of tobacco abuse Benign hypertension with stage 3a chronic kidney disease (HCC) Type 2 diabetes mellitus with stage 3a chronic kidney disease (HCC) Chronic kidney disease, stage 3a ([facility]) COPD, group B, by GOLD 2017 classification ([facility]) DDD (degenerative disc disease), thoracic Orthostatic hypotension Moderate episode of recurrent major depressive disorder ([facility]) Labile blood pressure Current Outpatient Medications Medication Sig Dispense Refill PERPHENAZINE 2 MG PO TABS one to two tablets at bedtime LORAzepam (ATIVAN) 0.5 MG Tablet Take 1 Tablet by mouth at bedtime as needed for Anxiety or Insomnia. 30 Tab 0 [place]-3 Fatty Acids (FISH OIL) 1200 MG CAPS Take 1 Cap by mouth daily. doxepin (SINEQUAN) 25 MG Capsule Take 1 Cap by mouth at bedtime. 90 Cap 3 hydrOXYzine HCl 25 MG Oral Tablet Take 1 Tablet by mouth 2 times a day as needed. CPAP every night at bedtime. Nystatin 965473 UNIT/GM External Cream Apply topically to affected [...] in 30 min 60 Tablet 5 Nystatin 386082 UNIT/GM External Powder (Nystop) Apply topically to [...] performed by Ines Bailey DO at [facility] COLONOSCOPY, DIAGNOSTIC (RECTUM) 01/28/2018 diverticulosis, repeat 5 yrs/COLONOSCOPY FLEXIBLE PROXIMAL DIAGNOSTIC performed by Ines Bailey, at [facility] DOBUTAMINE STRESS ECHO 05/20 equivocal stress findings; negative stress echo findings LEFT HEART CATHETERIZATION 1996 [facility], dr roca REMOVAL OF APPENDIX 15 y/o REMOVE CATARACT, INSERT LENS PROSTH 1992, 1995 Rt/Lt REPAIR INITIAL INGUINAL HERNIA REDUCIBLE AGE 4 OR MORE Left 08/05/2017 08/05/2017 repair of left inguinal hernia - [facility] Dr. 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: [employer] x[employer] yrs Occupation: disability [...] Stability Do you currently live in a nursing home or have no steady place to [...] Care Team (Late st Contact Info) Description 05/20/2024 11:40 AM EST Office Visit Nephrology, Michael Dooley [address] [facility] [place] [address] Dre Felix MD [address] [facility] [place] [address] Scheduled Procedures Name Priority Associated Diagnoses Date/Ti [...] Additional history exists CKD PHOS USE SMARTSET 26458 08/12/202407/19, 03/12/2022, 02/22/2021, Additional history exists CKD HGB USE SMARTSET 10476 12/24/202412/24, 12/25/2023, 03/04/2023, Additional history exists TSH [...] (HCC) documented in this encounter Care Teams Show Host Relationship Specialty Start Date End Date Patti Posadas MD [address] [place] [address] PCP - General Internal Medicine 01/18/22 documented as of this encounter"
--- OUTSIDE RECORDS SUMMARY | 2024-02-17 16:46 | External Medical Summary | Summary of Care ---
Author Name Unknown Organization [facility] Address [address] [place] [address] Phone [phone] Care Team Providers Care After School Teacher Name Role Phone Patti Posadas MD Primary Care Provider [phone] Encounter Details Date Type Department Care Team (Late st Contact Info) Description 12/18/2023 Telephone [facility] [address] [place] [address] Patti Posadas MD [address] [place] [address] Allergies Active Allergy Reactions Criticality [...] or Insomnia. 30 Tab 0 08/22/2015 Active [place]-3 Fatty Acids (FISH OIL) 1200 MG CAPS [...] CPAP every night at bedtime. Active Nystatin 331438 UNIT/GM External CreamIndications:Ca ndidal skin infection Apply [...] min 60 Tablet 5 08/06/2023 Active Nystatin 140591 UNIT/GM External Powder (Nystop)Indications :Candidal skin infection [...] OPD, group B, by GOLD 2017 classification ([facility]) Use with albuterol inhaler. 1 Each [...] Triamcinolone Acetonide 0.5 % External Cream (Aristocort)Indicat ions:It Technician's papule Apply topically to affected area 2 times a day. To affected area. 60 g 1 12/16/2023 4 Discontinu ed(Refill) documented as of this encounter [...] and 6 MWT Genetic Sleep Disorder Resea [facility] Other*[id number] 08/27/2011 01/18/2016 Routine general medical exam ination [...] Encounter - Patti Posadas MD - 2023 10:41 AM EDT Thanks for update And will keep same med at this time And will see her as scheduled on Jan 01 * Telephone Encounter - Niyah Nguyen LPN - 12/18/2023 12:[address] Ivory WALTER Pt was evaluated in [facility] ED 12/16 for hypotension and elevated pulse of 199 in the home setting Vitals were stable while in ED Magnesium level was 1.6 Was given IV Mag and discharged home She states that she in taking magnesium 400 mg daily at home but I do not see this on her medication list She did not wish to make sooner appt to see you in f/u She opted to keep 01/01 appt that she has scheduled for you Her BP this morning prior to her morning medications at 0900 am- 164/112, P-89 1 hour after her medications - 127/68 P- 88 Please let me know if any further recommendations Thank you documented in this encounter Plan of Treatment Upcoming Encounters Date Type Department Care Team (Late st Contact Info) Description 01/02/2024 9:20 AM EDT Office Visit [facility] [address] [place] [address] Patti Posadas MD [address], [place] [id number] 05/20/2024 11:40 AM EST Office Visit [facility] [address] [place] [address] Dre Felix MD [address] [place] [address] Scheduled Procedures Name Priority Associated Diagnoses Date/Ti [...] Additional history exists CKD HGB USE SMARTSET 89429 03/04/202403/04, 12/17/2022, 12/17/2022, Additional history exists Diabetic Foot Exam 03/04/2024 03/04/2023, 0 02/07/2021, 02/10/2020, Additional history exists TSH 03/04/2024 03/04/2023, 08/15, 03/12/2022, Additional history exists Albumin/Creatinine Ratio 06/11/2024 023, 08/28/2022, 08/14/2021, Additional history exists Diabetic Eye Exam 06/11/2024 06/11/2023, , 08/08/2021, Additional history exists Depression Monitoring 06/25/2024 06/25/2023 CKD PHOS USE SMARTSET 05148 08/12/202407/19, 03/12/2022, 02/22/2021, Additional history exists O2 [...] filedocumented as of this encounter Care Teams After School Teacher Relationship Specialty Start Date End Date Patti Posadas MD [address] [place] [address] PCP - General Internal Medicine 01/18/22 documented as of this encounter
--- OUTSIDE RECORDS SUMMARY | 2024-02-17 16:46 | External Medical Summary | Summary of Care ---
Author Name Unknown Organization [facility] Address [address] [place] [address] Phone [phone] Care Team Providers Care Title Specialist Name Role Phone Patti Posadas MD Primary Care Provider [phone] Reason for Visit * Reason Onset Date Comments MyCode Nonconsent - Not interested at this time 12/25/2023 Encounter Details Date Type Department Care Team (Late st Contact Info) Description 12/25/2023 Orders Only Outcomes Research Department [address] [place] [address] Iram Palomo CHRA MyCode Nonconsent Documentation Allergies Active Allergy Reactions Criticality Noted Date Comments Amoxicillin-Pot Clavulanate Other (Please comment) 01/14/2015 Severe Yeast infection Morphine And Codeine Unknown 02/19/2003 Codeine makes her vomit Sulfa Antibiotics Edema face/lips/tongue,Oth er (Please comment) High 02/19/2003 Headache documented as of this encounter (statuses as of 12/25/2023) Medications Medication Sig Dispensed Refills Start Date End Date Status PERPHENAZINE 2 MG PO TABS one to two tablets at bedtime 02/09/2014 Active LORAzepam (ATIVAN) 0.5 MG Tablet Take 1 Tablet by mouth at bedtime as needed for Anxiety or Insomnia. 30 Tab 0 08/22/2015 Active [place]-3 Fatty Acids (FISH OIL) 1200 MG CAPS [...] CPAP every night at bedtime. Active Nystatin 147165 UNIT/GM External CreamIndications:Can didal skin infection Apply [...] min 60 Tablet 5 08/06/2023 Active Nystatin 006717 UNIT/GM External Powder (Nystop)Indications: Candidal skin infection [...] PD, group B, by GOLD 2017 classification ([facility]) Use with albuterol inhaler. 1 Each [...] Triamcinolone Acetonide 0.5 % External Cream (Aristocort)Indicati ons:Associate Media Director's papule Apply 0.5 g topically to affected area in the morning and 0.5 g before bedtime. To affected area.. 60 g 1 2023 Active documented as of this encounter (statuses as of 12/25/2023) Active Problems Problem Noted Date Diagnosed Date [...] disease 03/25/2018 Old [place] (myocardial infarction) 03/25/2018 Severe obesity with body [...] as of this encounter (statuses as of 12/25/2023) Resolved Problems Problem Noted Date Diagnosed Date [...] and 6 MWT Genetic Sleep Disorder Resea [facility] Other*[id number] 08/27/2011 01/18/2016 Routine general medical exam ination [...] as of this encounter (statuses as of 12/25/2023) Immunizations Name Administration Dates Next Due COVID-19 [...] on file documented as of this encounter Progress Notes * Iram Palomo CHRA - 12/25/2023 8:52 AM EDT MyCode Nonconsent Documentation Elsy Palmer was approached in the clinic regarding participation in the MyCode Project and did not consent. documented in this encounter Plan of Treatment Upcoming Encounters Date Type Department Care Team (Late st Contact Info) Description 01/02/2024 9:20 AM EDT Office Visit [facility] [address] [facility] [place] [phone] [facility]adas [facility] [address] [facility] [place] [address] 05/20/2024 11:40 AM EST Office Visit Nephrology, Michael Dooley [address] [place], [place] [address] Dre Felix MD [address] [facility] [place] [address] Scheduled Procedures Name Priority Associated Diagnoses Date/Ti [...] Additional history exists CKD HGB USE SMARTSET 41748 03/04/202403/04, 12/17/2022, 12/17/2022, Additional history exists Diabetic Foot Exam 03/04/2024 03/04/2023, 0 02/07/2021, 02/10/2020, Additional history exists TSH 03/04/2024 03/04/2023, 08/15, 03/12/2022, Additional history exists Albumin/Creatinine Ratio 06/11/2024 023, 08/28/2022, 08/14/2021, Additional history exists Diabetic Eye Exam 06/11/2024 06/11/2023, , 08/08/2021, Additional history exists Depression Monitoring 06/25/2024 06/25/2023 CKD PHOS USE SMARTSET 98761 08/12/202407/19, 03/12/2022, 02/22/2021, Additional history exists O2 [...] filedocumented as of this encounter Care Teams Title Specialist Relationship Specialty Start Date End Date [facility]adas [facility] [address] [facility] [id number] PCP - General Internal Medicine 01/18/22 documented as of this encounter
--- OUTSIDE RECORDS SUMMARY | 2024-02-17 16:46 | External Medical Summary | Summary of Care ---
Author Name Unknown Organization [facility] Address [address] [place] [address] Phone [phone] Care Team Providers Care Personal Shopper Name Role Phone Patti Posadas MD Primary Care Provider [phone] Reason for Visit * Reason Onset Date Comments Hypotension 12/17/2023 Dizziness 12/17/2023 Slurred Speech 12/17/2023 Encounter Details Date Type Department Care Team (Late st Contact Info) Description 12/17/2023 Telephone [facility] [address] [place] [address] Patti Posadas MD [address] [place] [address] Hypotension; Dizziness; Slurred Speech Allergies Active Allergy Reactions Criticality Noted Date Comments Amoxicillin-Pot Clavulanate Other (Please comment) 01/14/2015 Severe Yeast infection Morphine And Codeine Unknown 02/19/2003 Codeine makes her vomit Sulfa Antibiotics Edema face/lips/tongue,Oth er (Please comment) High 02/19/2003 Headache documented as of this encounter (statuses as of 12/17/2023) Medications Medication Sig Dispensed Refills Start Date End Date Status PERPHENAZINE 2 MG PO TABS one to two tablets at bedtime 02/09/2014 Active LORAzepam (ATIVAN) 0.5 MG Tablet Take 1 Tablet by mouth at bedtime as needed for Anxiety or Insomnia. 30 Tab 0 08/22/2015 Active [place]-3 Fatty Acids (FISH OIL) 1200 MG CAPS [...] CPAP every night at bedtime. Active Nystatin 957175 UNIT/GM External CreamIndications:Can didal skin infection Apply [...] min 60 Tablet 5 08/06/2023 Active Nystatin 739928 UNIT/GM External Powder (Nystop)Indications: Candidal skin infection Apply topically to affected area 3 times a day. 30 g 3 08/08/2023 Active Diclofenac Sodium 1 % External Gel (Voltaren) Apply 1 g topically to affected area in the morning and 1 g before bedtime. 100 g 08/15/2023 Active Depend Underwear X-Large Use 3-4 [...] Triamcinolone Acetonide 0.5 % External Cream (Aristocort)Indicati ons:Yarn Polishing Machine Operator's papule Apply topically to affected area 2 [...] as of this encounter (statuses as of 12/17/2023) Active Problems Problem Noted Date Diagnosed Date [...] disorder) 03/25/2018 Gastroesophageal reflux disease 03/25/2018 Old [place] (myocardial infarction) 03/25/2018 Severe obesity with body [...] as of this encounter (statuses as of 12/17/2023) Resolved Problems Problem Noted Date Diagnosed Date [...] and 6 MWT Genetic Sleep Disorder Resea [facility] Other*[id number] 08/27/2011 01/18/2016 Routine general medical exam ination [...] as of this encounter (statuses as of 12/17/2023) Immunizations Name Administration Dates Next Due COVID-19 [...] No 07/03/2023 Does the household have a [facility] source [facility] income? (Household - for ages [...] Telephone Encounter - Patti Posadas MD - 12/17/2023 1:19 PM EDT Noted And discussed Advised ER * Telephone Encounter - Niyah Nguyen LPN - 12/17/2023 12:47 PM EDT Review of [facility] dashboard readings today 12/16- 11:55 am- 79/57; HR-79 Pt had taken morning medications as prescribed When saw low BP took Midodrine 2.5 mg dose after this check around 12 noon I made phone call to residence Spoke to Behavioral Health case repairer and her tin roofer She stated when they arrived this morning patient was in bed, dizzy, pale + Speech was slurring. Denies any headache, one-sided weakness or facial droop Recheck of BP while on the phone BP check at 12:41 pm- 67/55 P-199 TT contact with PCP Advised ED evaluation Spoke to patient and caregivers. Advised to call 911 now Pt reluctant but agreeable Caregivers will assist in this documented in this encounter Plan of Treatment Upcoming Encounters Date Type Department Care Team (Late st Contact Info) Description 01/02/2024 9:20 AM EDT Office Visit [facility] [address] [place] [address] Patti Posadas MD [address] [place] [address] 05/20/2024 11:40 AM EST Office Visit [facility] [address] [place] [address] Dre Felix MD [address] [facility] [place] [address] Scheduled Procedures Name Priority Associated Diagnoses Date/Ti [...] Additional history exists CKD HGB USE SMARTSET 42755 03/04/202403/04, 12/17/2022, 12/17/2022, Additional history exists Diabetic Foot Exam 03/04/2024 03/04/2023, 0 02/07/2021, 02/10/2020, Additional history exists TSH 03/04/2024 03/04/2023, 08/15, 03/12/2022, Additional history exists Albumin/Creatinine Ratio 06/11/2024 023, 08/28/2022, 08/14/2021, Additional history exists Diabetic Eye Exam 06/11/2024 06/11/2023, , 08/08/2021, Additional history exists Depression Monitoring 06/25/2024 06/25/2023 CKD PHOS USE SMARTSET 69072 08/12/202407/19, 03/12/2022, 02/22/2021, Additional history exists O2 [...] 08/16/2014, Additional history exists DXA Scan Discontinued GARDASIL-HPV IMMUNIZATION SERIES Aged Out No longer eligible based on patient's age to complete this topic Hepatitis B Aged Out No longer eligi ble based on patient's age to complete this topic MENINGOCOCCAL (MENACTRA/MENVEO) Aged Out No longer eligible based on patient's age to complete this topic Zoster Vaccines Discontinued documented as of this encounter Medical Devices Not on filedocumented as of this encounter Care Teams Personal Shopper Relationship Specialty Start Date End Date Patti Posadas MD [address] [place] [address] PCP - General Internal Medicine 01/18/22 documented as of this encounter
--- OUTSIDE RECORDS SUMMARY | 2024-02-17 16:46 | External Medical Summary ---
Author Name Unknown Address Unknown Organization K01:[facility] [place] [address] [facility] [address] Laboratory Report Ordering Provider Test Date Status MATEO KENDRICK 12/25/2023 08:55:05 Final Observation Date Value Abnormality Reference (Units ) Status TSH 12/25/2023 08:55:05 2.11 0.27-4.20 (uIU/mL) Final Performing Location LAB[facility]ATORY [facility] - [address] [facility] [address]
--- OUTSIDE RECORDS SUMMARY | 2024-02-17 16:46 | External Medical Summary | Summary of Care ---
Author Name Unknown Organization [facility] Address [address] [place] [address] Phone [phone] Care Team Providers Care Fruit Packer Name Role Phone Patti Posadas MD Primary Care Provider [phone] Reason for Visit * Reason Onset Date Comments Hypotension 12/17/2023 Dizziness 12/17/2023 Slurred Speech 12/17/2023 Encounter Details Date Type Department Care Team (Late st Contact Info) Description 12/17/2023 Telephone [facility] [address] [place] [address] Patti Posadas MD [address] [place] [address] Hypotension; Dizziness; Slurred Speech Allergies [...] or Insomnia. 30 Tab 0 08/22/2015 Active [place]-3 Fatty Acids (FISH OIL) 1200 MG CAPS [...] CPAP every night at bedtime. Active Nystatin 196031 UNIT/GM External CreamIndications:Can didal skin infection Apply [...] min 60 Tablet 5 08/06/2023 Active Nystatin 731822 UNIT/GM External Powder (Nystop)Indications: Candidal skin infection [...] Triamcinolone Acetonide 0.5 % External Cream (Aristocort)Indicati ons:Distributor Of Directories's papule Apply topically to affected area 2 [...] disorder) 03/25/2018 Gastroesophageal reflux disease 03/25/2018 Old [place] (myocardial infarction) 03/25/2018 Severe obesity with body [...] and 6 MWT Genetic Sleep Disorder Resea [facility] Other*[id number] 08/27/2011 01/18/2016 Routine general medical exam ination [...] No 07/03/2023 Does the household have a [facility] source [facility] income? (Household - for [...] Advised ER * Telephone Encounter - Niyah Nugyen LPN - 12/17/2023 12:47 PM EDT [place] [facility] [place] readings today 12/16- 11:55 am- 79/57; HR-79 Pt had taken morning medications as prescribed When saw low BP took Midodrine 2.5 mg dose after this check around 12 noon I made phone call to residence Spoke to Behavioral Health manager rn case and her cover inspector She stated when they arrived this morning [...] Description 01/02/2024 9:20 AM EDT Office Visit [facility] [address] [place] [address] Patti Posadas MD [address] [place] [address] 05/20/2024 11:40 AM EST Office Visit [facility] [address] [place] [address] Dre Felix MD [address] [facility] [place] [address] Scheduled Procedures Name Priority Associated Diagnoses Date/Ti [...] Additional history exists CKD HGB USE SMARTSET 37409 03/04/202403/04, 12/17/2022, 12/17/2022, Additional history exists Diabetic Foot Exam 03/04/2024 03/04/2023, 0 02/07/2021, 02/10/2020, Additional history exists TSH 03/04/2024 03/04/2023, 08/15, 03/12/2022, Additional history exists Albumin/Creatinine Ratio 06/11/2024 023, 08/28/2022, 08/14/2021, Additional history exists Diabetic Eye Exam 06/11/2024 06/11/2023, , 08/08/2021, Additional history exists Depression Monitoring 06/25/2024 06/25/2023 CKD PHOS USE SMARTSET 14643 08/12/202407/19, 03/12/2022, 02/22/2021, Additional history exists O2 [...] filedocumented as of this encounter Care Teams Fruit Packer Relationship Specialty Start Date End Date Patti Posadas MD [address] [place] [address] PCP - General Internal Medicine 01/18/22 documented as of this encounter
--- OUTSIDE RECORDS SUMMARY | 2024-02-17 16:46 | External Medical Summary | Summary of Care ---
Author Name Unknown Organization [facility] Address [address] [place] [address] Phone [phone] Care Team Providers Care Licensed Practical Nurse Instructor Name Role Phone Patti Posadas MD Primary Care Provider [phone] Reason for Visit * Reason Comments Outpatient Testing Encounter Details Date Type Department Care Team (Late st Contact Info) Description 12/25/2023 9:00 AM EDT [facility], [place] [address] [place] [address] [place] [address] [place] [address] HTN, GOAL BELOW 140/90; Benign hypertension with stage 3a chronic kidney disease (HCC); Type 2 diabetes mellitus with hemoglobin A1c goal of less than 7.0% (HCC); Acquired hypothyroidism Allergies Active Allergy Reactions Criticality Noted Date [...] or Insomnia. 30 Tab 0 08/22/2015 Active [place]-3 Fatty Acids (FISH OIL) 1200 MG CAPS [...] CPAP every night at bedtime. Active Nystatin 150628 UNIT/GM External CreamIndications:Can didal skin infection Apply [...] min 60 Tablet 5 08/06/2023 Active Nystatin 529992 UNIT/GM External Powder (Nystop)Indications: Candidal skin infection Apply topically to affected area 3 times a day. 30 g 08/08/2023 Active Diclofenac Sodium 1 % External [...] SHORTNESS OF BREATHE (CHEST PRESSURE) 300 mL 10/15/2023 Active Mirtazapine 30 MG Oral Tablet [...] hours as needed (SOB cough). 18 g 11/14/2023 Active Spacer/Aero-Holding Chambers DeviceIndications:[place] PD, group [...] Triamcinolone Acetonide 0.5 % External Cream (Aristocort)Indicati ons:File Clerk Data Entry's papule Apply 0.5 g topically to affected [...] and 6 MWT Genetic Sleep Disorder Resea [facility] Other*[id number] 08/27/2011 01/18/2016 Routine general medical exam ination [...] No 07/03/2023 Does the household have a [facility] source [facility] income? (Household - for ages [...] Description 01/02/2024 9:20 AM EDT [facility] [place] [address] [place] [address] Patti Posadas MD [address] [place] [address] 05/20/2024 11:40 AM EST [facility] [address] [place] [address] Dre Felix MD [address] [place] [address] Pending Results Name Type Priority Associated Diagnoses Date /Time COMPREHENSIVE METABOLIC PANEL Lab Routine HTN, GOAL BELOW 140/90 Benign hypertension with stage 3a chronic kidney disease (HCC) 12/25/2023 8:55 AM EDT HEMOGLOBIN A1C Lab Routine Type 2 diabetes mellitus with hemoglobin A1c goal of less than 7.0% (HCC) 12/25/2023 8:55 AM EDT CBC WITH WBC DIFFERENTIAL Lab Routine HTN, GOAL BELOW 140/90 12/25/2023 8:55 AM EDT TSH WITH FREE T4 IF INDICATED Lab Routine Acquired hypothyroidism 12/25/2023 8:55 AM EDT CBC Lab Routine HTN, GOAL BELOW 140/90 12/25/2023 8:55 AM EDT DIFFERENTIAL, AUTOMATED Lab Routine HTN, GOAL BELOW 140/90 12/25/2023 8:55 AM EDT Scheduled Procedures Name Priority Associated Diagnoses Date/Ti [...] Additional history exists CKD HGB USE SMARTSET 96342 03/04/202403/04, 12/17/2022, 12/17/2022, Additional history exists Diabetic Foot Exam 03/04/2024 03/04/2023, 0 02/07/2021, 02/10/2020, Additional history exists TSH 03/04/2024 03/04/2023, 08/15, 03/12/2022, Additional history exists Albumin/Creatinine Ratio 06/11/2024 023, 08/28/2022, 08/14/2021, Additional history exists Diabetic Eye Exam 06/11/2024 06/11/2023, , 08/08/2021, Additional history exists Depression Monitoring 06/25/2024 06/25/2023 CKD PHOS USE SMARTSET 40710 08/12/202407/19, 03/12/2022, 02/22/2021, Additional history exists O2 [...] as of this encounter Visit Diagnoses Diagnosis HTN, GOAL BELOW 140/90 Unspecified essential hypertension Benign hypertension with stage 3a chronic kidney disease (HCC) Type 2 diabetes mellitus with hemoglobin A1c goal of less than 7.0% (HCC) Acquired hypothyroidism Unspecified hypothyroidism documented in this encounter Care Teams Licensed Practical Nurse Instructor Relationship Specialty Start Date End Date Patti Posadas MD [address] [place] [address] PCP - General Internal Medicine 01/18/22 documented as of this encounter
--- OUTSIDE RECORDS SUMMARY | 2024-02-17 16:46 | External Medical Summary ---
Author Name Unknown Address Unknown Organization K01:[facility] [place] - [address] [facility] [address] Laboratory Report Ordering Provider Test Date Status MATEO KENDRICK 12/25/2023 08:55:05 Final Observation Date Value Abnormality Reference (Units ) Status HbA1C 12/25/2023 08:55:05 6.0 Above high normal 4. 0-5.6 (%) Final The use of HbA1c to monitor glycemic status is based on normal hemoglobin and HbA composition. This test should not be used in patients with abnormal hemoglobin that affects the half life of the red blood cell or the in vivo glycation rates. Glucose, estimated average 12/25/2023 08:55:05 126 Above high normal <126 (mg/dL) Hussain morales Performing Location [facility] [place] - [address] [facility] [address]
--- NOTE | 2024-02-17 16:51 | Emergency Department Note ---
Impression & Plan Orthostatic hypotension, Hypomagnesemia, Dizziness ED Provider Note HISTORY OF PRESENT ILLNESS: Patient is a 73-year-old female presenting with symptomatic hypotension. Patient reports that she is been feeling very fatigued and rundown today. Reports that she stood up to go into her kitchen when she suddenly felt lightheaded and saw some black spots in her vision. Her home health nurse came to visit her and took her blood pressure and found it to be 80s over 60s. Patient has a history of orthostatic hypotension. She denies any recent falls. Denies any chest pain or shortness of breath with the lightheadedness. She denies any recent nausea, vomiting or diarrhea. She denies any recent sick contact exposures. Denies any dysuria or hematuria. Denies any fevers. Denies any recent changes in medications. ROS: as above PHYSICAL EXAM: Constitutional: Patient appears in no acute distress. HENT: Head: Normocephalic and atraumatic. Eyes: EOMI, PERRL Mouth/Throat: Mucous membranes moist. Neck: Trachea midline. Neck supple. Cardiovascular: RRR, No murmurs, rubs or gallops. Intact distal pulses. Pulmonary/Chest: No respiratory distress. Breath sounds clear and equal bilaterally. No wheezes or rales. Abdominal: Abdomen soft, no tenderness, rebound or guarding. Musculoskeletal: No edema, tenderness or deformity noted. Skin: Warm and dry. No rash, erythema, pallor or cyanosis Psychiatric: Appropriate mood and affect for situation. Neurological: Alert and keenly responsive. CN II-XII grossly intact, moving all extremities equally and fully. MDM: - Vitals signs stable. - History obtained via patient. History as above. - Chronic conditions affecting care: CKD; HTN; hypotension; CKD - Differential diagnoses include, but are not limited to: Pneumonia; urinary tract infection; acute dehydration; electrolyte abnormality; ACS - Order placed for continuous cardiac monitoring. At this time, monitor showed rate of 71 bpm with normal sinus rhythm, per my interpretation. - External medical records reviewed. Discharge summary dated 11/10/2023 was reviewed. Patient was admitted that time for dizziness and symptomatic hypotension. - EKG interpreted by myself showed normal sinus rhythm. Rate 63 bpm. QT 456. No acute ischemic changes. - Laboratory workup interpreted by myself showed normal WBC; anemia (Hgb 10.7); normal PT/INR; normal lactate; normal procalcitonin; elevated creatinine (Cr 1.34); hypocalcemia (Ca 7.6); hypomagnesemia (Mg 1.6); elevated TSH (8.829) with normal T3; normal troponin; normal BNP - CXR negative for pneumonia, per my interpretation - Viral respiratory panel negative - UA negative for infection - Patient given 1L NS in ER. Given 1g IV magnesium for electrolyte replacement. - Patient's blood pressures remained stable in the emergency department the patient was feeling well. However, with orthostatic vital signs, the patient became hypotensive and tachycardic with standing. Will admit to hospital service for further evaluation and management. - Discussion was had with business case analyst about patient's case and need for admission - Hospitalist, Dr. May, consulted for admission - Patient admitted to [facility] service for further evaluation and management. ASSESSMENT AND PLAN: Diagnosis: Orthostatic hypotension; hypomagnesemia; dizziness Plan: Admit Past Med/Surg History Problem List Dizziness (Acute) Hypomagnesemia (Acute) Orthostatic hypotension (Acute) Symptomatic hypotension Dizziness (Acute) Neuroforaminal stenosis of lumbar spine Protrusion of lumbar intervertebral disc Labile blood pressure Acid reflux well controlled ADRI (obstructive sleep apnea) Hypomagnesemia (Acute) Failure of outpatient treatment (Acute) Headache (Acute) Hypertension (Acute) Hypomagnesemia CKD (chronic kidney disease), stage III Hypertensive urgency ADI (acute kidney injury) (Acute) Slurred speech (Acute) Acute dehydration (Acute) Acute hypotension (Acute) Protrusion of intervertebral disc of thoracic region Degenerative spondylolisthesis Lumbar stenosis with neurogenic claudication Cervical pain Greater trochanteric bursitis of left hip History of heart attack 1996- medically managed Hypotensive episode (Acute) Diabetes mellitus, type II COPD (chronic obstructive pulmonary disease) Dyslipidemia Nocturnal hypoxemia 2L O2 HS Hypertension Hypothyroidism Anxiety and depression History of total left hip arthroplasty (~11/2019) Medical History Obesity Fatty liver Arthritis Degenerative disc disease Sciatica Thyroid enlarged no dysphagia Asthma mild, "well controlled and stable", rare inhaler use Surgical History History of colonoscopy History of left cataract surgery History of right cataract surgery History of right hip replacement History of hysterectomy History of hernia repair History of cardiac cath FOLLOWING HEART ATTACK, NO FINDINGS 1996 Family History Mother Family history of diabetes mellitus Aunt Family history of diabetes mellitus Son Family history of colon cancer Social History Smoking Status: Former smoker Tobacco Type: Cigarettes Second Hand Exposure: No; Do You Dip or Chew Tobacco: No; Hx Alcohol Use: No Hx Substance Use: No Preferred Language: [place] Communication Ability: Effective Visual Impairment: No Limitations Hearing Ability: Normal Abalone Fisherman Required: No Beliefs That Will Affect Care: None Current Living Situation: Alone Current Living Situation Comment: Lives in independent living at [facility] current occupational status: retired Feels Safe at Home: Yes Safety Concerns Comment: office of aging is visiting her tomorrow regarding getting more help @ home Assistive Devices: CPAP and Walker Allergies Allergies Allergy/AdvReac Type Severity Reaction Status Date / Time Sulfa (Sulfonamide Allergy Severe face Verified 11/14/23 22:06 Antibiotics) tongue lips swelling,HEADACHE amoxicillin AdvReac Intermediate YEAST Verified 11/14/23 22:06 INFECTION clavulanic acid AdvReac Intermediate YEAST Verified 11/14/23 22:06 INFECTION codeine AdvReac Intermediate N/V Verified 11/14/23 22:06 Home Meds Home Medications Medication Instructions Recorded Confirmed atorvastatin 10 mg tablet 10 mg PO HS 08/14/19 12/17/23 cetirizine 10 mg tablet 10 mg PO QAM 08/14/19 12/17/23 doxepin 25 mg capsule 25 mg PO HS 08/14/19 12/17/23 levothyroxine 125 mcg capsule 125 mcg PO DAILYBB 08/14/19 12/17/23 perphenazine 2 mg tablet 6 mg PO HS 08/14/19 12/17/23 famotidine 20 mg tablet 20 mg PO AMHS 08/19/19 12/17/23 ascorbic acid (vitamin C) 1,000 mg 1 g PO DAILY 05/13/23 12/17/23 tablet hydroxyzine HCl 25 mg tablet 25 mg PO BID PRN Anxiety 05/13/23 12/17/23 montelukast 10 mg tablet 10 mg PO QAM 05/13/23 12/17/23 vitamin B complex 1 cap PO DAILY 05/13/23 12/17/23 aspirin 81 mg tablet,delayed 81 mg PO QAM 06/04/23 12/17/23 release citalopram 10 mg tablet 10 mg PO QAM 06/04/23 12/17/23 citalopram 20 mg tablet 20 mg PO QAM 06/04/23 12/17/23 lorazepam 0.5 mg tablet 0.5 mg PO HS PRN as directed 06/04/23 12/17/23 metformin 500 mg tablet 500 mg PO BIDM 06/04/23 12/17/23 omega-3 300 mg-dha 120 mg-epa 180 1 cap PO BID 06/04/23 12/17/23 mg-fish oil 1,000 mg capsule turmeric 450 mg-turmeric root 1 cap PO QAM 06/04/23 12/17/23 extract 50 mg capsule vitamin E (dl, acetate) 180 mg 180 mg PO BID 06/04/23 12/17/23 (400 unit) capsule fluticasone 250 mcg-salmeterol 50 1 inh inhalation BID 06/19/23 12/17/23 mcg/dose blistr powdr for inhalation (Advair Diskus) midodrine 2.5 mg tablet 2.5 mg PO BID PRN NEEDED 09/03/23 12/17/23 nystatin 100,000 unit/gram topical 1 applic topical DIRECTED PRN 09/03/23 12/17/23 powder (Nystop) Skin Irritation mirtazapine 30 mg tablet 30 mg PO HS 11/06/23 12/17/23 garlic 1,000 mg capsule 1,000 mg PO BID 12/17/23 12/17/23 Previous Rx's Medication Instructions Recorded acetaminophen 650 mg 650 mg PO Q8H PRN fever or pain 06/10/23 tablet,extended release #60 tabs magnesium oxide 400 mg (241.3 mg 400 mg PO QAM #30 tabs 06/10/23 magnesium) tablet carvedilol 6.25 mg tablet 6.25 mg PO BIDM #60 tabs 11/10/23 nifedipine 30 mg tablet,extended 30 mg PO QAM #30 tabs 11/10/23 release 24 hr (Procardia XL) Results & Data (ED) Vital Signs Vital Signs - 24 hr 02/17/24 16:44 02/17/24 16:44 02/17/24 16:44 Temperature 36.7 C Temperature Source Oral Pulse Rate - Lying Pulse Rate - Sitting Pulse Rate - Standing Pulse Rate 65 Pulse Rate [Apical] 65 Pulse Rate from SpO2 Sensor Pulse Rhythm Regular Pulse Rhythm [Apical] Regular Pulse Strength Normal Pulse Strength [Apical] Normal Respiratory Rate 19 19 Respiratory Effort / Characteristics Non-Labored Non-Labored Respiratory Depth Normal Normal Respiratory Pattern Regular Regular Blood Pressure - Lying Blood Pressure - Sitting Blood Pressure- Standing Blood Pressure 112/32 L Blood Pressure [Right Arm] 112/32 L Blood Pressure Mean 58 Blood Pressure Mean [Right Arm] 58 Blood Pressure Position Lying Blood Pressure Position [Right Arm] Lying Pulse Oximetry 93 93 Oxygen Delivery Method Room Air Room Air Room Air Sepsis Recent Fever Within 48 Hours No Sepsis New/Unexplained Change in Mental Status No Sepsis Action Taken by Nursing No Action Required 02/17/24 16:44 02/17/24 16:46 02/17/24 16:50 Temperature Temperature Source Pulse Rate - Lying Pulse Rate - Sitting Pulse Rate - Standing Pulse Rate 66 66 Pulse Rate [Apical] Pulse Rate from SpO2 Sensor Pulse Rhythm Regular Pulse Rhythm [Apical] Pulse Strength Pulse Strength [Apical] Respiratory Rate 19 Respiratory Effort / Characteristics Respiratory Depth Respiratory Pattern Blood Pressure - Lying Blood Pressure - Sitting Blood Pressure- Standing Blood Pressure 112/32 L Blood Pressure [Right Arm] Blood Pressure Mean 37 Blood Pressure Mean [Right Arm] Blood Pressure Position Blood Pressure Position [Right Arm] Pulse Oximetry 93 Oxygen Delivery Method Room Air Sepsis Recent Fever Within 48 Hours Sepsis New/Unexplained Change in Mental Status Sepsis Action Taken by Nursing 02/17/24 16:50 02/17/24 16:51 02/17/24 17:02 Temperature Temperature Source Pulse Rate - Lying Pulse Rate - Sitting Pulse Rate - Standing Pulse Rate 64 Pulse Rate [Apical] Pulse Rate from SpO2 Sensor 64 Pulse Rhythm Pulse Rhythm [Apical] Pulse Strength Pulse Strength [Apical] Respiratory Rate 14 Respiratory Effort / Characteristics Respiratory Depth Respiratory Pattern Blood Pressure - Lying Blood Pressure - Sitting Blood Pressure- Standing Blood Pressure 112/32 L Blood Pressure [Right Arm] Blood Pressure Mean 37 64 Blood Pressure Mean [Right Arm] Blood Pressure Position Blood Pressure Position [Right Arm] Pulse Oximetry 95 Oxygen Delivery Method Sepsis Recent Fever Within 48 Hours Sepsis New/Unexplained Change in Mental Status Sepsis Action Taken by Nursing 02/17/24 17:12 02/17/24 17:17 02/17/24 17:18 Temperature Temperature Source Pulse Rate - Lying Pulse Rate - Sitting Pulse Rate - Standing Pulse Rate 64 65 Pulse Rate [Apical] Pulse Rate from SpO2 Sensor 64 65 Pulse Rhythm Pulse Rhythm [Apical] Pulse Strength Pulse Strength [Apical] Respiratory Rate 15 15 Respiratory Effort / Characteristics Respiratory Depth Respiratory Pattern Blood Pressure - Lying Blood Pressure - Sitting Blood Pressure- Standing Blood Pressure Blood Pressure [Right Arm] Blood Pressure Mean 64 Blood Pressure Mean [Right Arm] Blood Pressure Position Blood Pressure Position [Right Arm] Pulse Oximetry 96 95 Oxygen Delivery Method Sepsis Recent Fever Within 48 Hours Sepsis New/Unexplained Change in Mental Status Sepsis Action Taken by Nursing 02/17/24 17:20 02/17/24 17:20 02/17/24 17:24 Temperature Temperature Source Pulse Rate - Lying Pulse Rate - Sitting Pulse Rate - Standing Pulse Rate Pulse Rate [Apical] Pulse Rate from SpO2 Sensor Pulse Rhythm Pulse Rhythm [Apical] Pulse Strength Pulse Strength [Apical] Respiratory Rate Respiratory Effort / Characteristics Respiratory Depth Respiratory Pattern Blood Pressure - Lying Blood Pressure - Sitting Blood Pressure- Standing Blood Pressure 84/65 L Blood Pressure [Right Arm] Blood Pressure Mean 55 55 76 Blood Pressure Mean [Right Arm] Blood Pressure Position Blood Pressure Position [Right Arm] Pulse Oximetry Oxygen Delivery Method Sepsis Recent Fever Within 48 Hours Sepsis New/Unexplained Change in Mental Status Sepsis Action Taken by Nursing 02/17/24 17:24 02/17/24 17:24 02/17/24 17:24 Temperature Temperature Source Pulse Rate - Lying Pulse Rate - Sitting Pulse Rate - Standing Pulse Rate 66 Pulse Rate [Apical] Pulse Rate from SpO2 Sensor 67 Pulse Rhythm Pulse Rhythm [Apical] Pulse Strength Pulse Strength [Apical] Respiratory Rate 16 Respiratory Effort / Characteristics Respiratory Depth Respiratory Pattern Blood Pressure - Lying Blood Pressure - Sitting Blood Pressure- Standing Blood Pressure 84/65 L 84/65 L Blood Pressure [Right Arm] Blood Pressure Mean 76 76 Blood Pressure Mean [Right Arm] Blood Pressure Position Blood Pressure Position [Right Arm] Pulse Oximetry 95 Oxygen Delivery Method Room Air Sepsis Recent Fever Within 48 Hours Sepsis New/Unexplained Change in Mental Status Sepsis Action Taken by Nursing 02/17/24 17:31 02/17/24 17:45 02/17/24 17:46 Temperature Temperature Source Pulse Rate - Lying Pulse Rate - Sitting Pulse Rate - Standing Pulse Rate 68 Pulse Rate [Apical] Pulse Rate from SpO2 Sensor 68 Pulse Rhythm Pulse Rhythm [Apical] Pulse Strength Pulse Strength [Apical] Respiratory Rate 16 Respiratory Effort / Characteristics Respiratory Depth Respiratory Pattern Blood Pressure - Lying Blood Pressure - Sitting Blood Pressure- Standing Blood Pressure 106/32 L 94/48 L Blood Pressure [Right Arm] Blood Pressure Mean 80 62 Blood Pressure Mean [Right Arm] Blood Pressure Position Blood Pressure Position [Right Arm] Pulse Oximetry 93 Oxygen Delivery Method Sepsis Recent Fever Within 48 Hours Sepsis New/Unexplained Change in Mental Status Sepsis Action Taken by Nursing 02/17/24 17:46 02/17/24 17:46 02/17/24 17:51 Temperature Temperature Source Pulse Rate - Lying Pulse Rate - Sitting Pulse Rate - Standing Pulse Rate 66 Pulse Rate [Apical] Pulse Rate from SpO2 Sensor 65 Pulse Rhythm Pulse Rhythm [Apical] Pulse Strength Pulse Strength [Apical] Respiratory Rate 15 Respiratory Effort / Characteristics Respiratory Depth Respiratory Pattern Blood Pressure - Lying Blood Pressure - Sitting Blood Pressure- Standing Blood Pressure 94/48 L 94/48 L Blood Pressure [Right Arm] Blood Pressure Mean 62 62 Blood Pressure Mean [Right Arm] Blood Pressure Position Blood Pressure Position [Right Arm] Pulse Oximetry 93 Oxygen Delivery Method Sepsis Recent Fever Within 48 Hours Sepsis New/Unexplained Change in Mental Status Sepsis Action Taken by Nursing 02/17/24 18:01 02/17/24 18:06 02/17/24 18:16 Temperature Temperature Source Pulse Rate - Lying Pulse Rate - Sitting Pulse Rate - Standing Pulse Rate 67 Pulse Rate [Apical] Pulse Rate from SpO2 Sensor 67 Pulse Rhythm Pulse Rhythm [Apical] Pulse Strength Pulse Strength [Apical] Respiratory Rate 17 Respiratory Effort / Characteristics Respiratory Depth Respiratory Pattern Blood Pressure - Lying Blood Pressure - Sitting Blood Pressure- Standing Blood Pressure 122/66 Blood Pressure [Right Arm] Blood Pressure Mean 73 97 Blood Pressure Mean [Right Arm] Blood Pressure Position Blood Pressure Position [Right Arm] Pulse Oximetry 95 Oxygen Delivery Method Sepsis Recent Fever Within 48 Hours Sepsis New/Unexplained Change in Mental Status Sepsis Action Taken by Nursing 02/17/24 18:16 02/17/24 18:18 02/17/24 18:30 Temperature Temperature Source Pulse Rate - Lying Pulse Rate - Sitting Pulse Rate - Standing Pulse Rate 68 68 Pulse Rate [Apical] Pulse Rate from SpO2 Sensor 68 69 Pulse Rhythm Pulse Rhythm [Apical] Pulse Strength Pulse Strength [Apical] Respiratory Rate 17 14 Respiratory Effort / Characteristics Respiratory Depth Respiratory Pattern Blood Pressure - Lying Blood Pressure - Sitting Blood Pressure- Standing Blood Pressure 122/66 Blood Pressure [Right Arm] Blood Pressure Mean 97 Blood Pressure Mean [Right Arm] Blood Pressure Position Blood Pressure Position [Right Arm] Pulse Oximetry 94 93 Oxygen Delivery Method Sepsis Recent Fever Within 48 Hours Sepsis New/Unexplained Change in Mental Status Sepsis Action Taken by Nursing 02/17/24 18:32 02/17/24 18:32 02/17/24 18:32 Temperature Temperature Source Pulse Rate - Lying Pulse Rate - Sitting Pulse Rate - Standing Pulse Rate Pulse Rate [Apical] Pulse Rate from SpO2 Sensor Pulse Rhythm Pulse Rhythm [Apical] Pulse Strength Pulse Strength [Apical] Respiratory Rate Respiratory Effort / Characteristics Respiratory Depth Respiratory Pattern Blood Pressure - Lying Blood Pressure - Sitting Blood Pressure- Standing Blood Pressure 105/41 L 105/41 L 105/41 L Blood Pressure [Right Arm] Blood Pressure Mean 49 49 49 Blood Pressure Mean [Right Arm] Blood Pressure Position Blood Pressure Position [Right Arm] Pulse Oximetry Oxygen Delivery Method Sepsis Recent Fever Within 48 Hours Sepsis New/Unexplained Change in Mental Status Sepsis Action Taken by Nursing 02/17/24 18:45 02/17/24 18:47 02/17/24 18:47 Temperature Temperature Source Pulse Rate - Lying Pulse Rate - Sitting Pulse Rate - Standing Pulse Rate 70 Pulse Rate [Apical] Pulse Rate from SpO2 Sensor 70 Pulse Rhythm Pulse Rhythm [Apical] Pulse Strength Pulse Strength [Apical] Respiratory Rate 15 Respiratory Effort / Characteristics Respiratory Depth Respiratory Pattern Blood Pressure - Lying Blood Pressure - Sitting Blood Pressure- Standing Blood Pressure Blood Pressure [Right Arm] Blood Pressure Mean 83 83 Blood Pressure Mean [Right Arm] Blood Pressure Position Blood Pressure Position [Right Arm] Pulse Oximetry 97 Oxygen Delivery Method Sepsis Recent Fever Within 48 Hours Sepsis New/Unexplained Change in Mental Status Sepsis Action Taken by Nursing 02/17/24 18:55 02/17/24 18:55 02/17/24 18:55 Temperature Temperature Source Pulse Rate - Lying Pulse Rate - Sitting Pulse Rate - Standing Pulse Rate Pulse Rate [Apical] Pulse Rate from SpO2 Sensor Pulse Rhythm Pulse Rhythm [Apical] Pulse Strength Pulse Strength [Apical] Respiratory Rate Respiratory Effort / Characteristics Respiratory Depth Respiratory Pattern Blood Pressure - Lying Blood Pressure - Sitting Blood Pressure- Standing Blood Pressure 126/67 126/67 126/67 Blood Pressure [Right Arm] Blood Pressure Mean 93 93 93 Blood Pressure Mean [Right Arm] Blood Pressure Position Blood Pressure Position [Right Arm] Pulse Oximetry Oxygen Delivery Method Sepsis Recent Fever Within 48 Hours Sepsis New/Unexplained Change in Mental Status Sepsis Action Taken by Nursing 02/17/24 19:00 02/17/24 19:00 02/17/24 19:00 Temperature Temperature Source Pulse Rate - Lying Pulse Rate - Sitting Pulse Rate - Standing Pulse Rate 71 Pulse Rate [Apical] Pulse Rate from SpO2 Sensor 71 Pulse Rhythm Pulse Rhythm [Apical] Pulse Strength Pulse Strength [Apical] Respiratory Rate 17 Respiratory Effort / Characteristics Respiratory Depth Respiratory Pattern Blood Pressure - Lying Blood Pressure - Sitting Blood Pressure- Standing Blood Pressure 110/61 110/61 Blood Pressure [Right Arm] Blood Pressure Mean 74 74 Blood Pressure Mean [Right Arm] Blood Pressure Position Blood Pressure Position [Right Arm] Pulse Oximetry 95 Oxygen Delivery Method Room Air Sepsis Recent Fever Within 48 Hours Sepsis New/Unexplained Change in Mental Status Sepsis Action Taken by Nursing 02/17/24 19:00 02/17/24 19:12 Temperature Temperature Source Pulse Rate - Lying 72 Pulse Rate - Sitting 83 Pulse Rate - Standing 93 H Pulse Rate Pulse Rate [Apical] Pulse Rate from SpO2 Sensor Pulse Rhythm Pulse Rhythm [Apical] Pulse Strength Pulse Strength [Apical] Respiratory Rate Respiratory Effort / Characteristics Respiratory Depth Respiratory Pattern Blood Pressure - Lying 120/70 Blood Pressure - Sitting 100/56 L Blood Pressure- Standing 97/72 L Blood Pressure 110/61 Blood Pressure [Right Arm] Blood Pressure Mean 74 Blood Pressure Mean [Right Arm] Blood Pressure Position Blood Pressure Position [Right Arm] Pulse Oximetry Oxygen Delivery Method Sepsis Recent Fever Within 48 Hours Sepsis New/Unexplained Change in Mental Status Sepsis Action Taken by Nursing Laboratory Data 02/17/24 17:08 02/17/24 17:08 Lab Results 02/17/24 02/17/24 02/17/24 Range/Units 16:45 17:08 17:17 WBC 7.67 (4.8-10.8) K/ul RBC 3.57 L (4.20-5.40) M/uL Hgb 10.7 L (12.0-16.0) g/dl Hct 31.8 L (37.0-47.0) % MCV 89.1 (80.0-100.0) fL MCH 30.0 (25.0-34.0) pg MCHC 33.6 (32.0-36.0) g/dL RDW Std Deviation 41.3 (36.4-46.3) fL RDW Coeff of Jennifer 12.8 (11.5-14.5) % Plt Count 204 (130-400) K/uL MPV 12.0 (9.4-12.4) fL Immature Gran % (Auto) 0.1 % Neut % (Auto) 50.4 % Lymph % (Auto) 29.7 % [place] % (Auto) 12.8 % Eos % (Auto) 6.5 % Baso % (Auto) 0.5 % Neut # (Auto) 3.86 (1.40-6.50) K/uL Lymph # (Auto) 2.28 (1.20-3.40) K/uL [place] # (Auto) 0.98 H (0.11-0.59) K/uL Eos # (Auto) 0.50 (0.00-0.50) K/uL Baso # (Auto) 0.04 (0.00-0.20) K/uL Immature Gran # (Auto) 0.01 (0.01-0.20) K/uL PT 11.4 (9.0-12.0) Seconds INR 1.1 (0.9-1.1) Sodium 137 (136-145) mmol/L Potassium 3.6 (3.5-5.1) mmol/L Chloride 106 (98-107) mmol/L Carbon Dioxide 24 (21-32) mmol/L Anion Gap 7 (3-11) BUN 20 (6-23) mg/dl Creatinine 1.34 H (0.6-1.2) mg/dl Est Cr Clr Drug Dosing 41.1 ml/min Est GFR ( Amer) 45.1 ml/min Est GFR (Non-Af Amer) 38.9 ml/min BUN/Creatinine Ratio 14.9 (10-20) Glucose 112 H (70-99(Fasting)) mg/dl Lactate 1.3 (0.4-2.0) mmol/L Calcium 7.6 L (8.6-10.3) mg/dl Magnesium 1.6 L (1.7-2.4) mg/dl Total Bilirubin 0.2 (0.2-1.0) mg/dl AST 22 (13-39) U/L ALT 24 (7-52) U/L Alkaline Phosphatase 53 (34-104) U/L Troponin I High Sens 3.8 (0-14) pg/ml B-Natriuretic Peptide 47 (0-100) pg/ml Total Protein 5.4 L (6.0-8.3) gm/dl Albumin 3.1 L (3.4-5.0) gm/dl Globulin 2.3 L (2.5-4.0) gm/dl Albumin/Globulin Ratio 1.3 (0.9-2) Procalcitonin < 0.02 (0-0.5) ng/ml TSH 8.829 H (0.300-4.500) uIu/ml Free T4 0.84 (0.61-1.60) ng/dl Urine Color Urine Appearance (Clear) Urine pH (4.5-7.5) Ur Specific [place] (1.000-1.030) Urine Protein (Negative) Urine Glucose (UA) (Negative) Urine Ketones (Negative) Urine Blood (Negative) Urine Nitrite (Negative) Urine Bilirubin (Negative) Urine Urobilinogen (Negative) Ur Leukocyte Esterase (Negative) Adenovirus (PCR) Not Detected (NotDetected) B. pertussis DNA (PCR) Not Detected (NotDetected) B.parapertussis DNA PCR Not Detected (NotDetected) C. pneumoniae DNA (PCR) Not Detected (NotDetected) Coronavirus OC43 (PCR) Not Detected (NotDetected) Coronavirus HKU1 (PCR) Not Detected (NotDetected) Coronavirus 229E (PCR) Not Detected (NotDetected) SARS-CoV-2 (PCR) Not Detected (NotDetected) Coronavirus NL63 (PCR) Not Detected (NotDetected) Human Metapneumovir PCR Not Detected (NotDetected) Influenza Type A (PCR) Not Detected (NotDetected) Influenza Type B (PCR) Not Detected (NotDetected) M. pneumoniae (PCR) Not Detected (NotDetected) Parainfluenza 1 (PCR) Not Detected (NotDetected) Parainfluenza 2 (PCR) Not Detected (NotDetected) Parainfluenza 3 (PCR) Not Detected (NotDetected) Parainfluenza 4 (PCR) Not Detected (NotDetected) RSV (PCR) Not Detected (NotDetected) Entero/Rhino (PCR) Not Detected (NotDetected) 02/17/24 Range/Units 19:00 WBC (4.8-10.8) K/ul RBC (4.20-5.40) M/uL Hgb (12.0-16.0) g/dl Hct (37.0-47.0) % MCV (80.0-100.0) fL MCH (25.0-34.0) pg MCHC (32.0-36.0) g/dL RDW Std Deviation (36.4-46.3) fL RDW Coeff of Jennifer (11.5-14.5) % Plt Count (130-400) K/uL MPV (9.4-12.4) fL Immature Gran % (Auto) % Neut % (Auto) % Lymph % (Auto) % [place] % (Auto) % Eos % (Auto) % Baso % (Auto) % Neut # (Auto) (1.40-6.50) K/uL Lymph # (Auto) (1.20-3.40) K/uL [place] # (Auto) (0.11-0.59) K/uL Eos # (Auto) (0.00-0.50) K/uL Baso # (Auto) (0.00-0.20) K/uL Immature Gran # (Auto) (0.01-0.20) K/uL PT (9.0-12.0) Seconds INR (0.9-1.1) Sodium (136-145) mmol/L Potassium (3.5-5.1) mmol/L Chloride (98-107) mmol/L Carbon Dioxide (21-32) mmol/L Anion Gap (3-11) BUN (6-23) mg/dl Creatinine (0.6-1.2) mg/dl Est Cr Clr Drug Dosing ml/min Est GFR ( Amer) ml/min Est GFR (Non-Af Amer) ml/min BUN/Creatinine Ratio (10-20) Glucose (70-99(Fasting)) mg/dl Lactate (0.4-2.0) mmol/L Calcium (8.6-10.3) mg/dl Magnesium (1.7-2.4) mg/dl Total Bilirubin (0.2-1.0) mg/dl AST (13-39) U/L ALT (7-52) U/L Alkaline Phosphatase (34-104) U/L Troponin I High Sens (0-14) pg/ml B-Natriuretic Peptide (0-100) pg/ml Total Protein (6.0-8.3) gm/dl Albumin (3.4-5.0) gm/dl Globulin (2.5-4.0) gm/dl Albumin/Globulin Ratio (0.9-2) Procalcitonin (0-0.5) ng/ml TSH (0.300-4.500) uIu/ml Free T4 (0.61-1.60) ng/dl Urine Color Yellow Urine Appearance Clear (Clear) Urine pH 6.5 (4.5-7.5) Ur Specific [place] 1.012 (1.000-1.030) Urine Protein Negative (Negative) Urine Glucose (UA) Negative (Negative) Urine Ketones Negative (Negative) Urine Blood Negative (Negative) Urine Nitrite Negative (Negative) Urine Bilirubin Negative (Negative) Urine Urobilinogen Negative (Negative) Ur Leukocyte Esterase Negative (Negative) Adenovirus (PCR) (NotDetected) B. pertussis DNA (PCR) (NotDetected) B.parapertussis DNA PCR (NotDetected) C. pneumoniae DNA (PCR) (NotDetected) Coronavirus OC43 (PCR) (NotDetected) Coronavirus HKU1 (PCR) (NotDetected) Coronavirus 229E (PCR) (NotDetected) SARS-CoV-2 (PCR) (NotDetected) Coronavirus NL63 (PCR) (NotDetected) Human Metapneumovir PCR (NotDetected) Influenza Type A (PCR) (NotDetected) Influenza Type B (PCR) (NotDetected) M. pneumoniae (PCR) (NotDetected) Parainfluenza 1 (PCR) (NotDetected) Parainfluenza 2 (PCR) (NotDetected) Parainfluenza 3 (PCR) (NotDetected) Parainfluenza 4 (PCR) (NotDetected) RSV (PCR) (NotDetected) Entero/Rhino (PCR) (NotDetected) Administered Medications Discontinued Medications Sodium Chloride (Nss) 1,000 mls @ 999 mls/hr IV .Q1H1M EROS Stop: 02/17/24 17:45 Last Infusion: 02/17/24 17:28 Dose: Infused Documented By: Admin: 02/17/24 16:59 Dose: 999 mls/hr Documented By: VIKAS Magnesium Sulfate/Dextrose (Magnesium Sulfate / D5w) 1 gm in 100 mls @ 100 mls/hr IV NOW STA Stop: 02/17/24 19:04 Last Infusion: 02/17/24 19:47 Dose: Infused Documented By: Admin: 02/17/24 18:48 Dose: 100 mls/hr Documented By: VIKAS Imaging Data Radiologist's Impression: Chest X-Ray 02/17/24 16:44 XR chest 1V portable HISTORY: weakness COMPARISON: None. FINDINGS: No pneumothorax. No pleural effusions. Mild chronic interstitial thickening persists. The heart remains top normal in size. No new focal lung consolidations. No acute fractures. Degenerative changes within the shoulders. IMPRESSION: No significant change compared to the prior study. No acute process. ACT 112: Negative or not required by law. Electronically signed by: Pablo Gordon M.D. 02/17/2024 5:55 PM Discharge Plan Visit Data Chief Complaint: Hypotension Stated Complaint: Dizzy with syncopal episode ED Provider: Abril Seo Discharge Problem: Orthostatic hypotension, Hypomagnesemia, Dizziness Forms Stand Alone Forms: [facility] [employer] Prescriptions Prescriptions: No Action montelukast 10 mg tablet 10 mg PO QAM hydroxyzine HCl 25 mg tablet 25 mg PO BID PRN (Reason: Anxiety) ascorbic acid (vitamin C) 1,000 mg tablet 1 g PO DAILY vitamin B complex Capsule 1 cap PO DAILY midodrine 2.5 mg tablet 2.5 mg PO BID PRN (Reason: NEEDED) Rx Instructions: for orthostatic hypotension < 80/50 nystatin [Nystop] 100,000 unit/gram powder 1 applic topical DIRECTED PRN (Reason: Skin Irritation) perphenazine 2 mg Tablet 6 mg PO HS cetirizine 10 mg Tablet 10 mg PO QAM atorvastatin 10 mg Tablet 10 mg PO HS doxepin 25 mg Capsule 25 mg PO HS levothyroxine 125 mcg Capsule 125 mcg PO DAILYBB famotidine 20 mg Tablet 20 mg PO AMHS metformin 500 mg tablet 500 mg PO BIDM citalopram 10 mg tablet 10 mg PO QAM Rx Instructions: TOTAL DOSE 30 MG--TAKES WITH 20 MG TAB. aspirin 81 mg Tablet,Delayed Release (Dr/Ec) 81 mg PO QAM citalopram 20 mg tablet 20 mg PO QAM Rx Instructions: TOTAL DOSE 30 MG--TAKES WITH 10 MG TAB. lorazepam 0.5 mg tablet 0.5 mg PO HS PRN (Reason: as directed) vitamin E (dl, acetate) 180 mg (400 unit) capsule 180 mg PO BID turmeric-turmeric root extract 450-50 mg capsule 1 cap PO QAM omega [id number]-cfe-[id number]-fish oil 300 mg (120 mg- 180mg)-1,000 mg capsule 1 cap PO BID magnesium oxide 400 mg (241.3 mg magnesium) Tablet 400 mg PO QAM Qty: 30 0RF acetaminophen 650 mg tablet extended release 650 mg PO Q8H PRN (Reason: fever or pain) Qty: 60 0RF fluticasone propion-salmeterol [Advair Diskus] 250-50 mcg/dose blister with device 1 inh INHALATION BID garlic [Odorless Garlic] 1,000 mg Capsule 1,000 mg PO BID mirtazapine 30 mg tablet 30 mg PO HS nifedipine [Procardia XL] 30 mg Tablet Extended Release 24hr 30 mg PO QAM Qty: 30 0RF carvedilol 6.25 mg Tablet 6.25 mg PO BIDM Qty: 60 0RF Referrals Referrals: Patti Posadas MD [Primary Care Provider] -
[2024-02-17] MEDS: SODIUM CHLORIDE 0.9% 1,000 ML IV SCH (16:59)
[2024-02-17 17:38] LABS: Basophils # (auto) 0.04 K/uL (0.00-0.20); Basophils % (auto) 0.5 %; Eosinophils % (auto) 6.5 %; Hematocrit (blood only) 31.8 % (37.0-47.0); Hemoglobin 10.7 g/dl (12.0-16.0); Immature Granulocytes # (auto) 0.01 K/uL (0.01-0.20); Immature Granulocytes % (auto) 0.1 %; Lymphocytes # (auto) 2.28 K/uL (1.20-3.40); Lymphocytes % (auto) 29.7 %; Mean Corpuscular Hgb Conc 33.6 g/dL (32.0-36.0); Mean Corpuscular Volume 89.1 fL (80.0-100.0); Monocytes # (auto) 0.98 K/uL (0.11-0.59); Monocytes % (auto) 12.8 %; Neutrophils # (auto) 3.86 K/uL (1.40-6.50); Neutrophils % (auto) 50.4 %; Platelet Count 204 K/uL (130-400); RDW Coefficient of Variation 12.8 % (11.5-14.5); RDW Standard Deviation 41.3 fL (36.4-46.3); Red Blood Count 3.57 M/uL (4.20-5.40); White Blood Count 7.67 K/ul (4.8-10.8)
[2024-02-17 17:41] LABS: Albumin Level 3.1 gm/dl (3.4-5.0); Bilirubin,Total 0.2 mg/dl (0.2-1.0); Calcium 7.6 mg/dl (8.6-10.3); Magnesium 1.6 mg/dl (1.7-2.4); Potassium 3.6 mmol/L (3.5-5.1)
[2024-02-17 17:46] LABS: Adenovirus PCR Not Detected (NotDetected); Bordetella parapertussis PCR Not Detected (NotDetected); Bordetella pertussis PCR Not Detected (NotDetected); Chlamydia pneumoniae PCR Not Detected (NotDetected); Coronavirus 229E PCR Not Detected (NotDetected); Coronavirus CoV-2 (COVID19)PCR Not Detected (NotDetected); Coronavirus HKU1 PCR Not Detected (NotDetected); Coronavirus NL63 PCR Not Detected (NotDetected); Coronavirus OC43PCR Not Detected (NotDetected); Human Metapneumovirus PCR Not Detected (NotDetected); Influenza A PCR Not Detected (NotDetected); Influenza B PCR Not Detected (NotDetected); Mycoplasma pneumoniae PCR Not Detected (NotDetected); Parainfluenza Virus 1 PCR Not Detected (NotDetected); Parainfluenza Virus 2 PCR Not Detected (NotDetected); Parainfluenza Virus 3 PCR Not Detected (NotDetected); Parainfluenza Virus 4 PCR Not Detected (NotDetected); Respiratory Syncytial VirusPCR Not Detected (NotDetected); Rhinovirus/Enterovirus PCR Not Detected (NotDetected)
[2024-02-17 17:47] LABS: Albumin Globulin Ratio 1.3 (0.9-2); BUN Creatinine Ratio 14.9 (10-20); Creatinine Clr Calc Pharmacy 41.1 ml/min; Est GFR (African American) 45.1 ml/min; Est GFR (Non-African American) 38.9 ml/min; Globulin 2.3 gm/dl (2.5-4.0); Total Protein 5.4 gm/dl (6.0-8.3)
[2024-02-17 17:53] LABS: INR 1.1 (0.9-1.1); Prothrombin Time 11.4 Seconds (9.0-12.0); Troponin I High Sensitivity 3.8 pg/ml (0-14)
--- NOTE | 2024-02-17 17:56 | XRay Report ---
XR chest 1V portable HISTORY: weakness COMPARISON: None. FINDINGS: No pneumothorax. No pleural effusions. Mild chronic interstitial thickening persists. The h eart remains top normal in size. No new focal lung consolidations. No acute fractures. Degenerative c hanges within the shoulders. IMPRESSION: No significant change compared to the prior study. No acute process. ACT 112: Negative or not required by law. Electronically signed by: Pablo Gordon M.D. 02/17/2024 5:55 PM
[2024-02-17 18:02] LABS: Thyroid Stimulating Hormone 8.829 uIu/ml (0.300-4.500)
[2024-02-17] MEDS: MAGNESIUM SULFATE / D5W 1 GM/100 ML BAG IV STA (18:48)
[2024-02-17 19:02] LABS: T4 Free Thyroxine 0.84 ng/dl (0.61-1.60)
[2024-02-17 19:16] LABS: Appearance Urine Clear (Clear); Bilirubin Urine Negative (Negative); Blood Urine Negative (Negative); Color Urine Yellow; Glucose Urine UA Negative (Negative); Ketones Urine Negative (Negative); Leukocyte Esterase Urine Negative (Negative); Nitrite Urine Negative (Negative); Protein Urine Negative (Negative); Specific Gravity Urine 1.012 (1.000-1.030); Urobilinogen Urine Negative (Negative); pH Urine 6.5 (4.5-7.5)
[2024-02-17] MEDS ORDERED: POLYETHYLENE (MIRALAX) 17 GM PACK PO PRN (23:56)
[2024-02-17] MEDS ORDERED: NITROGLYCERIN SL 0.4 MG/TAB TAB SL PRN (23:56)
[2024-02-17] MEDS ORDERED: ALBUTEROL 0.083% NEBU SOLN 3 ML VIAL NEB PRN (23:56)
[2024-02-17] MEDS ORDERED: ALBUTEROL HFA 8 GM INHALER INH PRN (23:56)
[2024-02-17] MEDS ORDERED: CARBOHYDRATES FOR HYPOGLYCEMIA PO PRN (23:56)
[2024-02-17] MEDS ORDERED: GLUCAGON FOR INJ 1 MG VIAL SQ PRN (23:56)
[2024-02-17] MEDS ORDERED: ACETAMINOPHEN 325 MG TAB PO PRN (23:56)
[2024-02-17] MEDS ORDERED: DEXTROSE 50% 50 ML SYRINGE IV PRN (23:56)
[2024-02-17] MEDS ORDERED: GLUCOSE 10 TAB/TUBE PO PRN (23:56)
[2024-02-17] MEDS ORDERED: GLUCOSE 40% GEL 15 GM TUBE PO PRN (23:56)
[2024-02-18] MEDS: carvediloL 6.25 MG TAB PO SCH (00:41)
[2024-02-18] MEDS: FAMOTIDINE 20 MG TAB PO SCH (00:42)
[2024-02-18] MEDS: MIRTAZAPINE TAB 15 MG TAB PO SCH (00:42)
[2024-02-18] MEDS: DOXEPIN HCL 25 MG CAPSULE PO SCH (00:42)
[2024-02-18] MEDS: SODIUM CHLORIDE 0.9% 1,000 ML IV SCH (00:47)
[2024-02-18] MEDS: FLUTICASONE/VILANTEROL 200/25MCG 14 PUFFS/INHALER INH SCH (00:53)
[2024-02-18] MEDS: INSULIN ASPART PER UNIT CHARGE SC SCH (00:54)
[2024-02-18 06:31] LABS: Basophils # (auto) 0.04 K/uL (0.00-0.20); Basophils % (auto) 0.6 %; Eosinophils # (auto) 0.43 K/uL (0.00-0.50); Eosinophils % (auto) 6.8 %; Hematocrit (blood only) 36.9 % (37.0-47.0); Hemoglobin 12.7 g/dl (12.0-16.0); Immature Granulocytes # (auto) 0.01 K/uL (0.01-0.20); Immature Granulocytes % (auto) 0.2 %; Lymphocytes # (auto) 1.78 K/uL (1.20-3.40); Lymphocytes % (auto) 28.2 %; Mean Corpuscular Hemoglobin 29.9 pg (25.0-34.0); Mean Corpuscular Hgb Conc 34.4 g/dL (32.0-36.0); Mean Corpuscular Volume 86.8 fL (80.0-100.0); Mean Platelet Volume 11.9 fL (9.4-12.4); Monocytes # (auto) 0.83 K/uL (0.11-0.59); Monocytes % (auto) 13.1 %; Neutrophils # (auto) 3.23 K/uL (1.40-6.50); Neutrophils % (auto) 51.1 %; Platelet Count 207 K/uL (130-400); RDW Coefficient of Variation 12.8 % (11.5-14.5); RDW Standard Deviation 40.7 fL (36.4-46.3); Red Blood Count 4.25 M/uL (4.20-5.40); White Blood Count 6.32 K/ul (4.8-10.8)
[2024-02-18 06:44] LABS: BUN Creatinine Ratio 13.6 (10-20); Calcium 8.8 mg/dl (8.6-10.3); Creatinine Clr Calc Pharmacy 46.7 ml/min; Est GFR (African American) 52.6 ml/min; Est GFR (Non-African American) 45.4 ml/min; Potassium 3.7 mmol/L (3.5-5.1)
[2024-02-18 06:50] LABS: Troponin I High Sensitivity 4.9 pg/ml (0-14)
[2024-02-18] MEDS: LEVOTHYROXINE SODIUM 125 MCG TABLET PO SCH (06:56)
[2024-02-18 07:47] LABS: Estimated Average Glucose 128 mg/dl; Hemoglobin A1C 6.1 % (4.5-5.6)
--- NOTE | 2024-02-18 08:12 | History & Physical Report ---
Date of Service February 17, 2024 Assessment & Plan (1) Syncope: Plan: 73-year-old female with past med history significant type 2 diabetes, hyperlipidemia, hypothyroidism, COPD, mild persistent asthma, nocturnal hypoxemia, hypertension, history of LA, CKD stage III, orthostatic hypotension, labile blood pressure, obesity, GERD, CKD stage III, degenerative disease, depression, and insomnia, general anxiety disorder. Periodic limb movement disorder history of tobacco abuse who lives alone at home comes because of orthostatic hypotension and syncope. Patient has history of orthostatic hypotension uses midodrine as needed. Patient gets caregivers few hours every day except Saturday. Today she was sitting on the chair when caregiver noticed that she passed out couple of times. Patient does not know how long she passed out. No biting of her tongue. No shaking or incontinence.Her blood pressure was low. In the ER after fluids she was still positive for orthostatics hypotension. Denies any headache. Was feeling dizzy. No blurred vision. No runny nose or sore throat. No cough. No fevers. Appetite is okay. No chest pain or shortness of breath no nausea. No abdominal pain. Normal bowel and bladder movements. Syncope History of orthostatic hypotension and on midodrine as needed Currently has orthostatic hypotension IV fluids Telemetry Serial cardiac enzymes and echo Currently consult in a.m. for further recommendations COPD Continue home inhalers Obstructive sleep apnea Nocturnal hypoxemia Periodic limb movement disorder Follows with sleep CPAP nightly Type 2 diabetes Hold metformin Sliding scale Will monitor Hypertension On Coreg and nifedipine Will monitor Depression insomnia General anxiety disorder Continue home medications DVT prophylaxis Heparin subcu Disposition Telemetry Full code. History of Present Illness Chief Complaint: Orthostatic hypotension and syncope Primary Care Provider: Patti Posadas MD 73-year-old female with past med history significant type 2 diabetes, hyperlipidemia, hypothyroidism, COPD, mild persistent asthma, nocturnal hypo xemia, hypertension, history of LA, CKD stage III, orthostatic hypotension, labile blood pressure, obesity, GERD, CKD stage III, degenerative disease, depression, and insomnia, general anxiety disorder. Periodic limb movement disorder history of tobacco abuse who lives alone at home comes because of orthostatic hypotension and syncope. Patient has history of orthostatic hypotension uses midodrine as needed. Patient gets caregivers few hours every day except Saturday. Today she was sitting on the chair when caregiver noticed that she passed out couple of times. Patient does not know how long she passed out. No biting of her tongue. No shaking or incontinence.Her blood pressure was low. In the ER after fluids she was still positive for orthostatics hypotension. Denies any headache. Was feeling dizzy. No blurred vision. No runny nose or sore throat. No cough. No fevers. Appetite is okay. No chest pain or shortness of breath no nausea. No abdominal pain. Normal bowel and bl adder movements. Past med history. As mentioned above Past surgical history. Breast biopsy right side. Colonoscopy. Left heart catheterization. Appendectomy. Bilateral cataracts. Left inguinal hernia repair. Right total hip replacement. Total hysterectomy. Social history. Quit smoking 2011. Smoked 2 pack a day for 30 years. No alcohol use. No drug use. Family history. Sister has arthritis. History and physical. Father had emphysema. Allergies Allergy/AdvReac Type Severity Reaction Status Date / Time Sulfa (Sulfonamide Allergy Severe face Verified 11/14/23 22:06 Antibiotics) tongue lips swelling,HEADACHE amoxicillin AdvReac Intermediate YEAST Verified 11/14/23 22:06 INFECTION clavulanic acid AdvReac Intermediate YEAST Verified 11/14/23 22:06 INFECTION codeine AdvReac Intermediate N/V Verified 11/14/23 22:06 Home Medications Medication Instructions Recorded Confirmed Type albuterol sulfate 2.5 mg/3 mL 2.5 mg continuous nebulization Q4H 02/17/24 02/17/24 History (0.083 %) solution for nebulization PRN Shortness Of Breath Or Wheezing albuterol sulfate 90 mcg/actuation 2 puff inhalation Q6H PRN 02/17/24 02/17/24 History aerosol inhaler (Ventolin HFA) Shortness Of Breath Or Wheezing ascorbic acid (vitamin C) 1,000 mg 1,000 mg PO DAILY 02/17/24 02/17/24 History tablet aspirin 81 mg tablet,delayed 81 mg PO DAILY 02/17/24 02/17/24 History release atorvastatin 10 mg tablet 10 mg PO DAILY 02/17/24 02/17/24 History carvedilol 6.25 mg tablet 6.25 mg PO BID 02/17/24 02/17/24 History cetirizine 10 mg tablet (Allergy 10 mg PO DAILY 02/17/24 02/17/24 History Relief (cetirizine)) citalopram 20 mg tablet 20 mg PO DAILY 02/17/24 02/17/24 History doxepin 25 mg capsule 25 mg PO HS 02/17/24 02/17/24 History famotidine 20 mg tablet 20 mg PO BID 02/17/24 02/17/24 History fluticasone 250 mcg-salmeterol 50 1 inh inhalation BID 02/17/24 02/17/24 History mcg/dose blistr powdr for inhalation fluticasone propionate 50 2 spray intranasal DAILY 02/17/24 02/17/24 History mcg/actuation nasal spray,suspension hydroxyzine HCl 25 mg tablet 25 mg PO BID PRN Anxiety 02/17/24 02/17/24 History levothyroxine 125 mcg tablet 125 mcg PO DAILY 02/17/24 02/17/24 History metformin 500 mg tablet 500 mg PO BID 02/17/24 02/17/24 History midodrine 2.5 mg tablet 2.5 mg PO UD PRN Hypotension 02/17/24 02/17/24 History mirtazapine 30 mg tablet 30 mg PO HS 02/17/24 02/17/24 History montelukast 10 mg tablet 10 mg PO DAILY 02/17/24 02/17/24 History nifedipine 30 mg tablet,extended 30 mg PO DAILY 02/17/24 02/17/24 History release olopatadine 0.2 % eye drops 1 drp ophthalmic (eye) DAILY 02/17/24 02/17/24 History tizanidine 4 mg tablet 4 mg PO TID PRN muscle spasms 02/17/24 02/17/24 History vitamin B complex 1 cap PO DAILY 02/17/24 02/17/24 History Past Med/Surg History Problem List Syncope Dizziness (Acute) Hypomagnesemia (Acute) Orthostatic hypotension (Acute) Symptomatic hypotension Dizziness (Acute) Neuroforaminal stenosis of lumbar spine Protrusion of lumbar intervertebral disc Labile blood pressure Acid reflux well controlled ADRI (obstructive sleep apnea) Hypomagnesemia (Acute) Failure of outpatient treatment (Acute) Headache (Acute) Hypertension (Acute) Hypomagnesemia CKD (chronic kidney disease), stage III Hypertensive urgency ADI (acute kidney injury) (Acute) Slurred speech (Acute) Acute dehydration (Acute) Acute hypotension (Acute) Protrusion of intervertebral disc of thoracic region Degenerative spondylolisthesis Lumbar stenosis with neurogenic claudication Cervical pain Greater trochanteric bursitis of left hip History of heart attack 1996- medically managed Hypotensive episode (Acute) Diabetes mellitus, type II COPD (chronic obstructive pulmonary disease) Dyslipidemia Nocturnal hypoxemia 2L O2 HS Hypertension Hypothyroidism Anxiety and depression History of total left hip arthroplasty (~11/2019) Medical History Obesity Fatty liver Arthritis Degenerative disc disease Sciatica Thyroid enlarged no dysphagia Asthma mild, "well controlled and stable", rare inhaler use Surgical History History of colonoscopy History of left cataract surgery History of right cataract surgery History of right hip replacement History of hysterectomy History of hernia repair History of cardiac cath FOLLOWING HEART ATTACK, NO FINDINGS 1996 Family History Mother Family history of diabetes mellitus Aunt Family history of diabetes mellitus Son Family history of colon cancer Social History Smoking Status: Former smoker Tobacco Type: Cigarettes Second Hand Exposure: No; Do You Dip or Chew Tobacco: No; Hx Alcohol Use: No Hx Substance Use: No Preferred Language: Senegalese Communication Ability: Effective Visual Impairment: No Limitations Hearing Ability: Normal [employer] Work[employer] Required: No Beliefs That Will Affect Care: None Current Living Situation: Alone Current Living Situation Comment: caregiver somedays current occupational status: retired Feels Safe at Home: Yes Safety Concerns Comment: office of aging is visiting her tomorrow regarding getting more help @ home Assistive Devices: Walker Review of Systems Review of Systems: All systems reviewed & are unremarkable except as noted in HPI & below Physical Exam Physical Exam: General- Not in distress Head- atraumatic Eyes- PERRL, EOMI, anicteric ENT- oropharynx clear Neck- supple, no JVD. Lungs- clear to auscultation no wheezing or crackles Heart- regular rhythm; no murmur, no gallop. Abdomen- normal bowel sounds, soft, nontender, no distension. Extremities- no pretibial edema, no erythema seen Neuro- alert, oriented PERRL, no facial palsy; no dysarthria; moves extremities Results & Data Results & Data Vital Signs (Past 12 Hours) Vital Signs Temp Pulse Pulse Resp BP BP Pulse Ox 02/17/24 20:39 83 02/17/24 19:00 110/61 02/17/24 19:00 110/61 02/17/24 19:00 110/61 02/17/24 19:00 71 17 95 02/17/24 18:55 126/67 02/17/24 18:55 126/67 02/17/24 18:55 126/67 02/17/24 18:45 70 15 97 02/17/24 18:32 105/41 L 02/17/24 18:32 105/41 L 02/17/24 18:32 105/41 L 02/17/24 18:30 68 14 93 02/17/24 18:18 68 17 94 02/17/24 18:16 122/66 02/17/24 18:16 122/66 02/17/24 18:06 67 17 95 02/17/24 17:51 66 15 93 02/17/24 17:46 94/48 L 02/17/24 17:46 94/48 L 02/17/24 17:46 94/48 L 02/17/24 17:45 68 16 93 02/17/24 17:31 106/32 L 02/17/24 17:24 66 16 95 02/17/24 17:24 84/65 L 02/17/24 17:24 84/65 L 02/17/24 17:24 84/65 L 02/17/24 17:18 65 15 95 02/17/24 17:12 64 15 96 02/17/24 16:51 64 14 95 02/17/24 16:50 112/32 L 02/17/24 16:50 112/32 L 02/17/24 16:46 66 02/17/24 16:44 66 19 93 02/17/24 16:44 65 19 112/32 L 93 02/17/24 16:44 02/17/24 16:44 36.7 C 65 19 112/32 L 93 O2 Del Method 02/17/24 20:39 02/17/24 19:00 02/17/24 19:00 02/17/24 19:00 02/17/24 19:00 Room Air 02/17/24 18:55 02/17/24 18:55 02/17/24 18:55 02/17/24 18:45 02/17/24 18:32 02/17/24 18:32 02/17/24 18:32 02/17/24 18:30 02/17/24 18:18 02/17/24 18:16 02/17/24 18:16 02/17/24 18:06 02/17/24 17:51 02/17/24 17:46 02/17/24 17:46 02/17/24 17:46 02/17/24 17:45 02/17/24 17:31 02/17/24 17:24 Room Air 02/17/24 17:24 02/17/24 17:24 02/17/24 17:24 02/17/24 17:18 02/17/24 17:12 02/17/24 16:51 02/17/24 16:50 02/17/24 16:50 02/17/24 16:46 02/17/24 16:44 Room Air 02/17/24 16:44 Room Air 02/17/24 16:44 Room Air 02/17/24 16:44 Room Air Diagnostic Findings Laboratory Results WBC 6.32 K/ul (4.8-10.8) 02/18/24 05:57 RBC 4.25 M/uL (4.20-5.40) 02/18/24 05:57 Hgb 12.7 g/dl (12.0-16.0) 02/18/24 05:57 Hct 36.9 % (37.0-47.0) L 02/18/24 05:57 MCV 86.8 fL (80.0-100.0) 02/18/24 05:57 MCH 29.9 pg (25.0-34.0) 02/18/24 05:57 MCHC 34.4 g/dL (32.0-36.0) 02/18/24 05:57 RDW Std Deviation 40.7 fL (36.4-46.3) 02/18/24 05:57 RDW Coeff of Jennifer 12.8 % (11.5-14.5) 02/18/24 05:57 Plt Count 207 K/uL (130-400) 02/18/24 05:57 MPV 11.9 fL (9.4-12.4) 02/18/24 05:57 Immature Gran % (Auto) 0.2 % 02/18/24 05:57 Neut % (Auto) 51.1 % 02/18/24 05:57 Lymph % (Auto) 28.2 % 02/18/24 05:57 Elliott % (Auto) 13.1 % 02/18/24 05:57 Eos % (Auto) 6.8 % 02/18/24 05:57 Baso % (Auto) 0.6 % 02/18/24 05:57 Neut # (Auto) 3.23 K/uL (1.40-6.50) 02/18/24 05:57 Lymph # (Auto) 1.78 K/uL (1.20-3.40) 02/18/24 05:57 Elliott # (Auto) 0.83 K/uL (0.11-0.59) H 02/18/24 05:57 Eos # (Auto) 0.43 K/uL (0.00-0.50) 02/18/24 05:57 Baso # (Auto) 0.04 K/uL (0.00-0.20) 02/18/24 05:57 Immature Gran # (Auto) 0.01 K/uL (0.01-0.20) 02/18/24 05:57 PT 11.4 Seconds (9.0-12.0) 02/17/24 17:08 INR 1.1 (0.9-1.1) 02/17/24 17:08 Sodium 141 mmol/L (136-145) 02/18/24 05:57 Potassium 3.7 mmol/L (3.5-5.1) 02/18/24 05:57 Chloride 105 mmol/L (98-107) 02/18/24 05:57 Carbon Dioxide 29 mmol/L (21-32) 02/18/24 05:57 Anion Gap 7 (3-11) 02/18/24 05:57 BUN 16 mg/dl (6-23) 02/18/24 05:57 Creatinine 1.18 mg/dl (0.6-1.2) 02/18/24 05:57 Est Cr Clr Drug Dosing 46.7 ml/min 02/18/24 05:57 Est GFR ( Amer) 52.6 ml/min 02/18/24 05:57 Est GFR (Non-Af Amer) 45.4 ml/min 02/18/24 05:57 BUN/Creatinine Ratio 13.6 (10-20) 02/18/24 05:57 Glucose 135 mg/dl (70-99(Fasting)) H 02/18/24 05:57 POC Glucose 155 mg/dl (70-99) H 02/18/24 06:04 Estimat Average Glucose 128 mg/dl 02/18/24 05:57 Hemoglobin A1c 6.1 % (4.5-5.6) H 02/18/24 05:57 Lactate 1.3 mmol/L (0.4-2.0) 02/17/24 17:08 Calcium 8.8 mg/dl (8.6-10.3) 02/18/24 05:57 Magnesium 2.0 mg/dl (1.7-2.4) 02/18/24 05:57 Total Bilirubin 0.2 mg/dl (0.2-1.0) 02/17/24 17:08 AST 22 U/L (13-39) 02/17/24 17:08 ALT 24 U/L (7-52) 02/17/24 17:08 Alkaline Phosphatase 53 U/L (34-104) 02/17/24 17:08 Troponin I High Sens 4.9 pg/ml (0-14) 02/18/24 05:57 B-Natriuretic Peptide 47 pg/ml (0-100) 02/17/24 17:08 Total Protein 5.4 gm/dl (6.0-8.3) L 02/17/24 17:08 Albumin 3.1 gm/dl (3.4-5.0) L 02/17/24 17:08 Globulin 2.3 gm/dl (2.5-4.0) L 02/17/24 17:08 Albumin/Globulin Ratio 1.3 (0.9-2) 02/17/24 17:08 Procalcitonin < 0.02 ng/ml (0-0.5) 02/17/24 17:17 TSH 8.829 uIu/ml (0.300-4.500) H 02/17/24 17:08 Free T4 0.84 ng/dl (0.61-1.60) 02/17/24 17:08 Urine Color Yellow 02/17/24 19:00 Urine Appearance Clear (Clear) 02/17/24 19:00 Urine pH 6.5 (4.5-7.5) 02/17/24 19:00 Ur Specific [place] 1.012 (1.000-1.030) 02/17/24 19:00 Urine Protein Negative (Negative) 02/17/24 19:00 Urine Glucose (UA) Negative (Negative) 02/17/24 19:00 Urine Ketones Negative (Negative) 02/17/24 19:00 Urine Blood Negative (Negative) 02/17/24 19:00 Urine Nitrite Negative (Negative) 02/17/24 19:00 Urine Bilirubin Negative (Negative) 02/17/24 19:00 Urine Urobilinogen Negative (Negative) 02/17/24 19:00 Ur Leukocyte Esterase Negative (Negative) 02/17/24 19:00 Adenovirus (PCR) Not Detected (NotDetected) 02/17/24 16:45 B. pertussis DNA (PCR) Not Detected (NotDetected) 02/17/24 16:45 B.parapertussis DNA PCR Not Detected (NotDetected) 02/17/24 16:45 C. pneumoniae DNA (PCR) Not Detected (NotDetected) 02/17/24 16:45 Coronavirus OC43 (PCR) Not Detected (NotDetected) 02/17/24 16:45 Coronavirus HKU1 (PCR) Not Detected (NotDetected) 02/17/24 16:45 Coronavirus 229E (PCR) Not Detected (NotDetected) 02/17/24 16:45 SARS-CoV-2 (PCR) Not Detected (NotDetected) 02/17/24 16:45 Coronavirus NL63 (PCR) Not Detected (NotDetected) 02/17/24 16:45 Human Metapneumovir PCR Not Detected (NotDetected) 02/17/24 16:45 Influenza Type A (PCR) Not Detected (NotDetected) 02/17/24 16:45 Influenza Type B (PCR) Not Detected (NotDetected) 02/17/24 16:45 M. pneumoniae (PCR) Not Detected (NotDetected) 02/17/24 16:45 Parainfluenza 1 (PCR) Not Detected (NotDetected) 02/17/24 16:45 Parainfluenza 2 (PCR) Not Detected (NotDetected) 02/17/24 16:45 Parainfluenza 3 (PCR) Not Detected (NotDetected) 02/17/24 16:45 Parainfluenza 4 (PCR) Not Detected (NotDetected) 02/17/24 16:45 RSV (PCR) Not Detected (NotDetected) 02/17/24 16:45 Entero/Rhino (PCR) Not Detected (NotDetected) 02/17/24 16:45 Impressions Chest X-Ray 02/17/24 16:44 XR chest 1V portable HISTORY: weakness COMPARISON: None. FINDINGS: No pneumothorax. No pleural effusions. Mild chronic interstitial thickening persists. The heart remains top normal in size. No new focal lung consolidations. No acute fractures. Degenerative changes within the shoulders. IMPRESSION: No significant change compared to the prior study. No acute process. ACT 112: Negative or not required by law. Electronically signed by: Pablo Gordon M.D. 02/17/2024 5:55 PM ECG Additional Comments: ECG. Normal sinus rhythm rate of 63. No significant change was found. Code Status & VTE Plan VTE Prophylaxis Plan VTE Prophylaxis will be ordered: Yes
[2024-02-18] MEDS: tiZANidine HCL 4 MG TABLET PO PRN (08:55)
[2024-02-18] MEDS: NIFEdipine EXTENDED REL 30 MG TABCR PO SCH (08:55)
[2024-02-18] MEDS: MONTELUKAST SODIUM 10 MG TABLET PO SCH (08:56)
[2024-02-18] MEDS: ASPIRIN 81 MG ECTAB PO SCH (08:56)
[2024-02-18] MEDS: CITALOPRAM 20 MG TAB PO SCH (08:56)
[2024-02-18] MEDS: ATORVASTATIN 10 MG TAB PO SCH (08:56)
[2024-02-18] MEDS: VITAMIN B COMPLEX TAB PO SCH (08:56)
[2024-02-18] MEDS: ASCORBIC ACID 500 MG TAB PO SCH (08:56)
[2024-02-18] MEDS: CETIRIZINE HCL 10 MG TABLET PO SCH (08:56)
[2024-02-18] MEDS: FLUTICASONE PROPIONATE NA SPR 16 GM BTL SCH (09:23)
--- NOTE | 2024-02-18 09:40 | Cardiology Consultation ---
Date of Consultation February 18, 2024 Assessment & Plan (1) Syncope: (2) Orthostatic hypotension: Plan Assessment 73 year old female admitted after a witnessed syncopal episode by a caregiver. Details remain unclear; however, patient was noted to be orthostatic just prior to the event. Plan: -EKG with no acute changes. -Review of telemetry demonstrates no arrhythmia. -patient admits to poor hydration status and frequent orthostatic spells. -BP well above target today which is likely in response to holding all antihypertensive medications. patient reports home monitoring does demonstrates labile blood pressures, making autonomic dysfunction a cabezas component in her event. -Patient is to receive her Nifedipine and Carvedilol as prescribed. -Will obtain echocardiogram to assess overall structure and function. Further recommendations as appropriate. -Continue to monitor on telemetry. Case has been discussed with Dr. Lepe. Further recommendations regarding plan of care as per his assessment. I spent a total of 40 minutes on the date of service in preparation, delivery, documentation of the care provided to the patient excluding any time spent in the performance of separately billed services. MERCEDES Cha [facility] Cardiology [facility] Supervising Physician Co-Signing Physician Notes I have personally performed a history and physical examination on the patient. I have reviewed the advance practitioner's documentation, and I agree with, and take responsibility for the plan of care. 73-year-old female presented to the emergency department after a syncopal episode. Experienced episode of lightheadedness while seated. Systolic blood pressure below 90 mmHg at that time. Denies any tongue biting, witnessed seizure-like activity, or incontinence. +Longstanding history of labile hypertension and orthostatic hypotension. Denies prior overt syncopal episode. Treated in ER with gentle IV hydration. Blood pressure has increased and now hy pertensive since admission. Denies chest pain or shortness of breath. Recommendations: Continue current dose of carvedilol, however, alter schedule of calcium channel hector therapy. Recommend patient take nifedipine at noon. Apply compression stockings daily. Encourage oral hydration. Discussed importance of making gradual positional change and lowering herself to the ground to avoid injury with any near syncopal symptoms. Continue midodrine as needed for symptomatic systolic blood pressure below 100 mmHg. Continue telemetry monitoring during hospitalization, although presentation is not suggestive of symptomatic bradycardia or tachy- dysrhythmia. He Lepe DO, [facility] History of Present Illness Reason for Consultation: Othostatic hypotension and syncope Requesting Physician: Nickie eid Attending Physician: Konstantin Cooper MD History of Present Illness HPI: 73 year-old female with PMHx as listed below presents after a reported syncopal episode. It was reported by the caregivers that she was sitting in a recliner and noted that "she passed out a couple of times". Patient does not recall much of her event. Unsure how long she had passed out for. Orthostatic VS positive in the ED, and therefore she received IV fluids with some improvement. Upon seeing patient today, she is not able to provide much else in the way of details. She is unsure how long she was out for, reports she was a little confused when she woke, but no loss of bowel or bladder function and no witnessed seizure like activity. She states that just before the event happened, she had stood up and immeditely felt her BP drop, sat down and then reports syncopizing. Patient denies any cardiac history; however, review of PCP notes are as follows: 1. Hx of LA 2. Labile HTN 3. Orthostatic Hypotension 4. Tachycardia 5. DDD 6. Chronic neck pain 7. DM type II 8. CKD stage III Denies any chest pain, pressure, palpitations, shortness of breath, PND, or edema. She has never followed with a doctor of chiropractic before although reports that she has a history of tachycardia. Also of note, patient is prescribed Midodrine TID PRN for her low blood pressures, but rarely takes. TSH 8.8, Free T4 normal. Troponin negative x2 EKG NSR with no acute St-T wave changes. Rate 63bpm For echocardiogram today. Allergies Allergy/AdvReac Type Severity Reaction Status Date / Time Sulfa (Sulfonamide Allergy Severe face Verified 11/14/23 22:06 Antibiotics) tongue lips swelling,HEADACHE amoxicillin AdvReac Intermediate YEAST Verified 11/14/23 22:06 INFECTION clavulanic acid AdvReac Intermediate YEAST Verified 11/14/23 22:06 INFECTION codeine AdvReac Intermediate N/V Verified 11/14/23 22:06 Home Medications Medication Instructions Recorded Confirmed Type albuterol sulfate 2.5 mg/3 mL 2.5 mg continuous nebulization Q4H 02/17/24 02/17/24 History (0.083 %) solution for nebulization PRN Shortness Of Breath Or Wheezing albuterol sulfate 90 mcg/actuation 2 puff inhalation Q6H PRN 02/17/24 02/17/24 History aerosol inhaler (Ventolin HFA) Shortness Of Breath Or Wheezing ascorbic acid (vitamin C) 1,000 mg 1,000 mg PO DAILY 02/17/24 02/17/24 History tablet aspirin 81 mg tablet,delayed 81 mg PO DAILY 02/17/24 02/17/24 History release atorvastatin 10 mg tablet 10 mg PO DAILY 02/17/24 02/17/24 History carvedilol 6.25 mg tablet 6.25 mg PO BID 02/17/24 02/17/24 History cetirizine 10 mg tablet (Allergy 10 mg PO DAILY 02/17/24 02/17/24 History Relief (cetirizine)) citalopram 20 mg tablet 20 mg PO DAILY 02/17/24 02/17/24 History doxepin 25 mg capsule 25 mg PO HS 02/17/24 02/17/24 History famotidine 20 mg tablet 20 mg PO BID 02/17/24 02/17/24 History fluticasone 250 mcg-salmeterol 50 1 inh inhalation BID 02/17/24 02/17/24 History mcg/dose blistr powdr for inhalation fluticasone propionate 50 2 spray intranasal DAILY 02/17/24 02/17/24 History mcg/actuation nasal spray,suspension hydroxyzine HCl 25 mg tablet 25 mg PO BID PRN Anxiety 02/17/24 02/17/24 History levothyroxine 125 mcg tablet 125 mcg PO DAILY 02/17/24 02/17/24 History metformin 500 mg tablet 500 mg PO BID 02/17/24 02/17/24 History midodrine 2.5 mg tablet 2.5 mg PO UD PRN Hypotension 02/17/24 02/17/24 History mirtazapine 30 mg tablet 30 mg PO HS 02/17/24 02/17/24 History montelukast 10 mg tablet 10 mg PO DAILY 02/17/24 02/17/24 History nifedipine 30 mg tablet,extended 30 mg PO DAILY 02/17/24 02/17/24 History release olopatadine 0.2 % eye drops 1 drp ophthalmic (eye) DAILY 02/17/24 02/17/24 History tizanidine 4 mg tablet 4 mg PO TID PRN muscle spasms 02/17/24 02/17/24 History vitamin B complex 1 cap PO DAILY 02/17/24 02/17/24 History Patient History Medical History Obesity Fatty liver Arthritis Degenerative disc disease Sciatica Thyroid enlarged no dysphagia Asthma mild, "well controlled and stable", rare inhaler use Surgical History History of colonoscopy History of left cataract surgery History of right cataract surgery History of right hip replacement History of hysterectomy History of hernia repair History of cardiac cath FOLLOWING HEART ATTACK, NO FINDINGS 1996 Family History Mother Family history of diabetes mellitus Aunt Family history of diabetes mellitus Son Family history of colon cancer Social History Smoking Status: Former smoker Tobacco Type: Cigarettes Second Hand Exposure: No; Do You Dip or Chew Tobacco: No; Hx Alcohol Use: No Hx Substance Use: No Preferred Language: Yi Communication Ability: Effective Visual Impairment: No Limitations Hearing Ability: Normal Healthcare Administrator Required: No Beliefs That Will Affect Care: None Current Living Situation: Alone Current Living Situation Comment: caregiver somedays current occupational status: retired Feels Safe at Home: Yes Safety Concerns Comment: office of aging is visiting her tomorrow regarding getting more help @ home Assistive Devices: Walker Review of Systems Review of Systems: All systems reviewed & are unremarkable except as noted in HPI & below Physical Exam Constitutional: well developed and + overweight; no acute distress and not ill appearing Neck: normal visual inspection and trachea midline Respiratory: normal respiratory effort, lungs clear to auscultation no cough Auscultation: no crackles, no rales, no rhonchi and no wheezes Cardiovascular: Rate/Rhythm: regular rate and regular rhythm Heart Sounds: normal S1 and normal S2; no murmur Vessels: no JVD Skin: no rashes, warm and dry Psychiatric: A+Ox3, euthymic affect Results & Data Vital Signs (Past 12 Hours) Vital Signs Pulse Pulse Resp BP BP Pulse Ox O2 Del Method 02/18/24 08:16 77 188/153 H 96 Nasal Cannula 02/18/24 07:05 79 02/18/24 06:06 186/97 H 02/18/24 06:06 76 31 H 97 02/18/24 05:48 80 23 97 02/18/24 05:03 78 20 89 L Nasal Cannula 02/18/24 05:00 161/90 H 02/18/24 04:51 70 19 90 02/18/24 04:30 73 18 91 02/18/24 04:15 74 16 94 02/18/24 04:08 166/79 H 02/18/24 04:05 166/79 H 02/18/24 04:00 73 16 92 02/18/24 03:30 76 15 94 02/18/24 03:12 76 17 91 02/18/24 02:30 76 14 93 02/18/24 02:00 79 23 91 02/18/24 01:39 72 21 95 02/18/24 01:32 78 20 158/78 H 96 Room Air 02/18/24 01:01 127/81 02/18/24 01:01 127/81 02/18/24 01:00 76 15 02/18/24 00:42 159/70 H 02/18/24 00:42 76 20 95 02/18/24 00:15 74 02/18/24 00:09 73 22 144/59 H 97 Room Air 02/18/24 00:03 73 18 95 02/17/24 23:57 75 18 94 02/17/24 23:36 75 16 93 02/17/24 23:03 75 21 93 02/17/24 23:01 145/79 H 02/17/24 23:01 145/79 H 02/17/24 23:00 74 14 93 Room Air 02/17/24 22:30 76 15 96 02/17/24 22:24 73 17 95 02/17/24 22:01 166/76 H 02/17/24 21:54 74 22 94 02/17/24 21:42 75 22 96 O2 Flow Rate 02/18/24 08:16 2 02/18/24 07:05 02/18/24 06:06 02/18/24 06:06 02/18/24 05:48 02/18/24 05:03 2 02/18/24 05:00 02/18/24 04:51 02/18/24 04:30 02/18/24 04:15 02/18/24 04:08 02/18/24 04:05 02/18/24 04:00 02/18/24 03:30 02/18/24 03:12 02/18/24 02:30 02/18/24 02:00 02/18/24 01:39 02/18/24 01:32 02/18/24 01:01 02/18/24 01:01 02/18/24 01:00 02/18/24 00:42 02/18/24 00:42 02/18/24 00:15 02/18/24 00:09 02/18/24 00:03 02/17/24 23:57 02/17/24 23:36 02/17/24 23:03 02/17/24 23:01 02/17/24 23:01 02/17/24 23:00 02/17/24 22:30 02/17/24 22:24 02/17/24 22:01 02/17/24 21:54 02/17/24 21:42 Laboratory Results Cardiac Enzymes 02/17/24 02/18/24 Range/Units 17:08 05:57 AST 22 (13-39) U/L Troponin I High Sens 3.8 4.9 (0-14) pg/ml B-Natriuretic Peptide 47 (0-100) pg/ml Coagulation 02/17/24 Range/Units 17:08 PT 11.4 (9.0-12.0) Seconds B-Natriuretic Peptide 47 (0-100) pg/ml CBC 02/17/24 02/18/24 Range/Units 17:08 05:57 WBC 7.67 6.32 (4.8-10.8) K/ul RBC 3.57 L 4.25 (4.20-5.40) M/uL Hgb 10.7 L 12.7 (12.0-16.0) g/dl Hct 31.8 L 36.9 L (37.0-47.0) % Plt Count 204 207 (130-400) K/uL Neut # (Auto) 3.86 3.23 (1.40-6.50) K/uL Lymph # (Auto) 2.28 1.78 (1.20-3.40) K/uL [place] # (Auto) 0.98 H 0.83 H (0.11-0.59) K/uL Eos # (Auto) 0.50 0.43 (0.00-0.50) K/uL Baso # (Auto) 0.04 0.04 (0.00-0.20) K/uL Comprehensive Metabolic Panel 02/17/24 02/18/24 Range/Units 17:08 05:57 Sodium 137 141 (136-145) mmol/L Potassium 3.6 3.7 (3.5-5.1) mmol/L Chloride 106 105 (98-107) mmol/L Carbon Dioxide 24 29 (21-32) mmol/L BUN 20 16 (6-23) mg/dl Creatinine 1.34 H 1.18 (0.6-1.2) mg/dl Glucose 112 H 135 H (70-99(Fasting)) mg/dl Calcium 7.6 L 8.8 (8.6-10.3) mg/dl AST 22 (13-39) U/L ALT 24 (7-52) U/L Alkaline Phosphatase 53 (34-104) U/L Total Protein 5.4 L (6.0-8.3) gm/dl Albumin 3.1 L (3.4-5.0) gm/dl Intake and Output 02/17/24 02/18/24 02/18/24 22:59 06:59 14:59 Intake Total 1100 / 1100 1000 / 1000 Output Total 800 / 800 1000 / 1000 Balance 1100 / 300 -800 / 300 0 / 0 Intake: IV 1100 / 1100 1000 / 1000 Magnesium Sulfate / D5w 1 gm In 100 / 100 100 ml @ 100 mls/hr IV NOW STA Rx#:[id number] Sodium Chloride 0.9% 1,000 ml @ 1000 / 1000 1000 / 1000 80 mls/hr IV .[id number] [facility] Rx#: [id number] Output: Urine 800 / 800 1000 / 1000 Other: Weight 98.3 kg 98.3 kg Weight Measurement Method Built in [facility] Built in [facility]
[2024-02-18] MEDS: HEPARIN SOD 5,000 UNIT/0.5 ML VIAL SQ SCH (10:51)
--- NOTE | 2024-02-18 14:31 | Hospitalist Progress Note ---
Date of Service February 18, 2024 Assessment & Plan (1) Syncope: Plan: 73-year-old female with past med history significant type 2 diabetes, hyperlipidemia, hypothyroidism, COPD, mild persistent asthma, nocturnal hypoxemia, hypertension, history of IA, CKD stage III, orthostatic hypotension, labile blood pressure, obesity, GERD, CKD stage III, degenerative disease, depression, and insomnia, general anxiety disorder, Periodic limb movement disorder history of tobacco abuse who lives alone at home comes because of orthostatic hypotension and syncope. Patient has history of orthostatic hypotension uses midodrine as needed. Labile Blood pressure Syncope History of orthostatic hypotension and on midodrine as needed History of labile blood pressure with multiple admission this year At home, she is on Coreg 6.25 twice daily and nifedipine 30 mg once a day for high blood pressure. Also takes midodrine as needed for low blood pressure as well. On presentation; hypotensive; responded well with IV fluids Echocardiogram shows EF of 65 to 70% with mild concentric LVH and grade 1 diastolic dysfunction home Coreg and nifedipine resumed as per cardiology midodrine as needed for low BP Patient reported that she was going to follow-up with nephrology; will consult them while she is here. COPD Continue home inhalers Obstructive sleep apnea Nocturnal hypoxemia Periodic limb movement disorder Follows with sleep CPAP nightly Type 2 diabetes Hold metformin Sliding scale Will monitor Hypertension On Coreg and nifedipine, continue Depression insomnia General anxiety disorder Continue home medications DVT prophylaxis Heparin subcu Disposition Telemetry Full code. Please note the above document was generated using voice recognition software. It may contain grammatical, syntax or spelling errors. Any formal questions or concerns about the content, text or information contained within the body of this dictation should be directly addressed to the provider for clarification Admission and Anticipated Discharge Date Admission Date: February 17, 2024 Subjective Patient seen and examined at bedside. She is comfortable lying in the bed; not in distress. She denies any dizziness presently Blood pressure trended up for which she was started on antihypertensive again Review of Systems Review of Systems: All systems reviewed & are unremarkable except as noted in Subjective Physical Exam Physical Exam: General- Not in distress Head- atraumatic Eyes- PERRL, EOMI, anicteric ENT- oropharynx clear Neck- supple, no JVD. Lungs- clear to auscultation no wheezing or crackles Heart- regular rhythm; no murmur, no gallop. Abdomen- normal bowel sounds, soft, nontender, no distension. Extremities- no pretibial edema, no erythema seen Neuro- alert, oriented PERRL, no facial palsy; no dysarthria; moves extremities Results & Data Results & Data Vital Signs (Past 12 Hours) Vital Signs Pulse Pulse Resp BP BP Pulse Ox Pulse Ox 02/18/24 10:21 97 02/18/24 08:16 77 188/153 H 96 02/18/24 07:05 79 02/18/24 06:06 186/97 H 02/18/24 06:06 76 31 H 97 02/18/24 05:48 80 23 97 02/18/24 05:03 78 20 89 L 02/18/24 05:00 161/90 H 02/18/24 04:51 70 19 90 02/18/24 04:30 73 18 91 02/18/24 04:15 74 16 94 02/18/24 04:08 166/79 H 02/18/24 04:05 166/79 H 02/18/24 04:00 73 16 92 02/18/24 03:30 76 15 94 02/18/24 03:12 76 17 91 O2 Del Method O2 Del Method O2 Flow Rate O2 Flow Rate 02/18/24 10:21 Nasal Cannula 2 02/18/24 08:16 Nasal Cannula 2 02/18/24 07:05 02/18/24 06:06 02/18/24 06:06 02/18/24 05:48 02/18/24 05:03 Nasal Cannula 2 02/18/24 05:00 02/18/24 04:51 02/18/24 04:30 02/18/24 04:15 02/18/24 04:08 02/18/24 04:05 02/18/24 04:00 02/18/24 03:30 02/18/24 03:12
--- NOTE | 2024-02-18 15:58 | Electrocardiogram Report ---
Test Reason : Blood Pressure : */* mmHG Vent. Rate : 63 BPM Atrial Rate : 63 BPM P-R Int : 160 ms QRS Dur : 72 ms QT Int : 456 ms P-R-T Axes : 49 41 67 degrees QTcB Int : 466 ms Normal sinus rhythm Normal ECG When compared with ECG of 17-Dec-2023 14:03, No significant change was found Confirmed by Gera Castellanos ([id number]) on 02/18/2024 3:57:55 PM Referred By: REFERRED SELF Confirmed By: Gera Castellanos
[2024-02-18] MEDS: hydrOXYzine HCl 25 MG TAB PO PRN (20:45)
[2024-02-18] MEDS ORDERED: Nursing to Pharmacy Communication SCH (23:45)
[2024-02-19 04:49] LABS: Basophils # (auto) 0.05 K/uL (0.00-0.20); Basophils % (auto) 0.7 %; Eosinophils # (auto) 0.53 K/uL (0.00-0.50); Eosinophils % (auto) 7.8 %; Hematocrit (blood only) 37.3 % (37.0-47.0); Hemoglobin 12.6 g/dl (12.0-16.0); Immature Granulocytes # (auto) 0.01 K/uL (0.01-0.20); Immature Granulocytes % (auto) 0.1 %; Lymphocytes # (auto) 2.05 K/uL (1.20-3.40); Lymphocytes % (auto) 30.1 %; Mean Corpuscular Hemoglobin 29.4 pg (25.0-34.0); Mean Corpuscular Hgb Conc 33.8 g/dL (32.0-36.0); Mean Corpuscular Volume 87.1 fL (80.0-100.0); Monocytes % (auto) 11.7 %; Neutrophils # (auto) 3.38 K/uL (1.40-6.50); Neutrophils % (auto) 49.6 %; Platelet Count 219 K/uL (130-400); RDW Standard Deviation 41.1 fL (36.4-46.3); Red Blood Count 4.28 M/uL (4.20-5.40); White Blood Count 6.82 K/ul (4.8-10.8)
[2024-02-19 05:05] LABS: BUN Creatinine Ratio 14.4 (10-20); Calcium 9.3 mg/dl (8.6-10.3); Creatinine Clr Calc Pharmacy 40.8 ml/min; Est GFR (African American) 45.9 ml/min; Est GFR (Non-African American) 39.6 ml/min; Potassium 3.8 mmol/L (3.5-5.1)
[2024-02-19 08:09] VITALS: TEMP 98.2
--- NOTE | 2024-02-19 08:36 | Cardiology Progress Note ---
Date of Service February 19, 2024 Assessment & Plan (1) Syncope: (2) Orthostatic hypotension: Plan Assessment 73 year old female admitted after a witnessed syncopal episode by a caregiver. Details remain unclear; however, patient was noted to be orthostatic just prior to the event. Plan: -EKG with no acute changes. -Review of telemetry demonstrates no arrhythmia. -patient admits to poor hydration status and frequent orthostatic spells. -BP well above target today which is likely in response to holding all antihypertensive medications. patient reports home monitoring does demonstrates labile blood pressures, making autonomic dysfunction a cabezas component in her event. -Patient is to receive her Nifedipine and Carvedilol as prescribed. -Will obtain echocardiogram to assess overall structure and function. Further recommendations as appropriate. -Continue to monitor on telemetry. 02/19/2024: -Patient doing well from a cardiac perspective today. offers no recurrence of symptoms. Repeat orthostatic VS negative. -discussed plan to "space out" her daily BP medications. Plan is for patient to take her Carvedilol 6.25mg twice daily (AM and PM). She is to continue to take her Nifedipine, but recommend that she takes at noon daily. -Patient should continue home BP medications, especially if symptomatic. If her Systolic BP would be less than 100mmHg, she may take a dose of midodrine. Patient is not to take more than 3 doses of midodrine in a 24 hours period ([id number] as needed). -Echocardiogram shows normal, slightly hyperdynamic LVEF. with no significant valvular disease. -Encourage hydration. -Patient is ok for discharge from a cardiovascular perspective, with plans to establish out patient cardiology follow up in 3-5 weeks. [facility] [address] cardiology will contact patient with an appt. Case has been discussed with Dr. Lepe. Further recommendations regarding plan of care as per his assessment. I spent a total of 30 minutes on the date of service in preparation, delivery, documentation of the care provided to the patient excluding any time spent in the performance of separately billed services. MERCEDES Cha [facility] [address] Cardiology [facility] Admission and Anticipated Discharge Date Admission Date: February 17, 2024 Supervising Physician Co-Signing Physician Notes I have personally performed a history and physical examination on the patient. I have reviewed the advance practitioner's documentation, and I agree with, and take responsibility for the plan of care. 73-year-old female presented to the emergency department after a syncopal episode. Etiology not well-defined, however, no dysrhythmia recorded since admission. Suspect secondary to transient hypotension in setting of mild volume depletion. Labile blood pressure noted since admission without recurrent lightheadedness or dizziness. Longstanding history of labile hypertension and orthostatic hypotension. Denies chest pain or shortness of breath. Recommendations: Continue current dose of carvedilol, however, alter schedule of calcium channel hector therapy. Recommend patient take nifedipine at noon. Apply compression stockings daily. Encourage oral hydration. Discussed importance of making gradual positional change and lowering herself to the ground to avoid injury with any near syncopal symptoms. Continue midodrine as needed for symptomatic systolic blood pressure below 100 mmHg. No further inpatient cardiac testing or intervention recommended at this time. Cardiology will sign off. Please call with further concerns/questions. He Lepe DO, [facility] Subjective 02/19/2024: Patient seen and examined in follow up today. Feeling really well. Denies any chest pain, pressure or palpitations, no shortness of breath, NO PND, pre-syncope, syncope or edema. Labs, vitals, diagnostics, telemetry and documentation reviewed. Telemetry reviewed showing SR rate 70-90bpm. Orthostatic vs checked by ICU this morning which are negative. Review of Systems Review of Systems: All systems reviewed & are unremarkable except as noted in HPI & below Physical Exam Constitutional: well developed and + overweight; no acute distress and not ill appearing Neck: normal visual inspection and trachea midline Respiratory: normal respiratory effort, lungs clear to auscultation no cough Auscultation: no crackles, no rales, no rhonchi and no wheezes Cardiovascular: Rate/Rhythm: regular rate and regular rhythm Heart Sounds: normal S1 and normal S2; no murmur Vessels: no JVD Skin: no rashes, warm and dry Psychiatric: A+Ox3, euthymic affect Results & Data Vital Signs (Past 12 Hours) Vital Signs Temp Pulse Pulse Resp BP Pulse Ox O2 Del Method 02/19/24 08:07 36.8 C 78 18 125/65 93 Room Air 02/19/24 07:08 87 02/19/24 04:21 36.6 C 81 16 150/51 H 92 Room Air 02/19/24 04:03 73 0904/24 00:01 36.6 C 72 16 128/51 L 91 Room Air Laboratory Results CBC 02/19/24 Range/Units 04:09 WBC 6.82 (4.8-10.8) K/ul RBC 4.28 (4.20-5.40) M/uL Hgb 12.6 (12.0-16.0) g/dl Hct 37.3 (37.0-47.0) % Plt Count 219 (130-400) K/uL Neut # (Auto) 3.38 (1.40-6.50) K/uL Lymph # (Auto) 2.05 (1.20-3.40) K/uL [place] # (Auto) 0.80 H (0.11-0.59) K/uL Eos # (Auto) 0.53 H (0.00-0.50) K/uL Baso # (Auto) 0.05 (0.00-0.20) K/uL Comprehensive Metabolic Panel 02/19/24 Range/Units 04:09 Sodium 139 (136-145) mmol/L Potassium 3.8 (3.5-5.1) mmol/L Chloride 103 (98-107) mmol/L Carbon Dioxide 27 (21-32) mmol/L BUN 19 (6-23) mg/dl Creatinine 1.32 H (0.6-1.2) mg/dl Glucose 136 H (70-99(Fasting)) mg/dl Calcium 9.3 (8.6-10.3) mg/dl Intake and Output 02/18/24 02/19/24 02/19/24 22:59 06:59 14:59 Intake Total 333.333 / 1333.333 Output Total 350 / 350 Balance 333.333 / 333.333 -350 / -350 Intake: IV 333.333 / 1333.333 Sodium Chloride 0.9% 1,000 ml @ 333.333 / 1333.333 80 mls/hr IV .[id number] [facility] Rx#: [id number] Output: Urine 350 / 350 Other: # Unmeasured Voids 5 Weight 94.1 kg 91.6 kg Weight Measurement Method [facility] Diagnostic Findings Echocardiogram 02/18/2024: LVEF 65-70% Mild concentric LVH Grade I diastolic dysfunction Aortic valve sclerosis without significant stenosis (1) Syncope Syncope type: unspecified Qualified Code(s): R55 - Syncope and collapse
[2024-02-19] MEDS: INSULIN ASPART PER UNIT CHARGE SC SCH (09:41)
[2024-02-19 11:55] VITALS: RESP 19
[2024-02-19 12:48] VITALS: PULSE 66; O2SAT 91
[2024-02-19] MEDS: MIDODRINE HCL 2.5 MG TAB PO PRN (12:48)
[2024-02-19 13:29] VITALS: BP 136/78
--- NOTE | 2024-02-19 13:41 | Electrocardiogram Report ---
Test Reason : Blood Pressure : */* mmHG Vent. Rate : 76 BPM Atrial Rate : 76 BPM P-R Int : 156 ms QRS Dur : 76 ms QT Int : 418 ms P-R-T Axes : 73 44 58 degrees QTcB Int : 470 ms Normal sinus rhythm Normal ECG When compared with ECG of 17-Feb-2024 16:47, No significant change was found Confirmed by Gera Castellanos ([id number]) on 02/19/2024 1:41:18 PM Referred By: REFERRED SELF Confirmed By: Gera Castellanos
--- NOTE | 2024-02-19 13:48 | Discharge Summary ---
Date of Service February 19, 2024 Admission HPI Per Admitting Provider 73-year-old female with past med history significant type 2 diabetes, hyperlipidemia, hypothyroidism, COPD, mild persistent asthma, nocturnal hypoxemia, hypertension, history of AR, CKD stage III, orthostatic hypotension, labile blood pressure, obesity, GERD, CKD stage III, degenerative disease, depression, and insomnia, general anxiety disorder. Periodic limb movement disorder history of tobacco abuse who lives alone at home comes because of orthostatic hypotension and syncope. Patient has history of orthostatic hypotension uses midodrine as needed. Patient gets caregivers few hours every day except Saturday. Today she was sitting on the chair when caregiver noticed that she passed out couple of times. Patient does not know how long she passed out. No biting of her tongue. No shaking or incontinence.Her blood pressure was low. In the ER after fluids she was still positive for orthostatics hypotension. Denies any headache. Was feeling dizzy. No blurred vision. No runny nose or sore throat. No cough. No fevers. Appetite is okay. No chest pain or shortness of breath no nausea. No abdominal pain. Normal bowel and bladder movements. Past med history. As mentioned above Past surgical history. Breast biopsy right side. Colonoscopy. Left heart catheterization. Appendectomy. Bilateral cataracts. Left inguinal hernia repair. Right total hip replacement. Total hysterectomy. Social history. Quit smoking 2011. Smoked 2 pack a day for 30 years. No alcohol use. No drug use. Family history. Sister has arthritis. History and physical. Father had emphysema. Admission Exam Per Admitting Provider General- Not in distress Head- atraumatic Eyes- PERRL, EOMI, anicteric ENT- oropharynx clear Neck- supple, no JVD. Lungs- clear to auscultation no wheezing or crackles Heart- regular rhythm; no murmur, no gallop. Abdomen- normal bowel sounds, soft, nontender, no distension. Extremities- no pretibial edema, no erythema seen Neuro- alert, oriented PERRL, no facial palsy; no dysarthria; moves extremities Principal Diagnosis Syncope Labile blood pressure Discharge Exam General- Not in distress Head- atraumatic Eyes- PERRL, EOMI, anicteric ENT- oropharynx clear Neck- supple, no JVD. Lungs- clear to auscultation no wheezing or crackles Heart- regular rhythm; no murmur, no gallop. Abdomen- normal bowel sounds, soft, nontender, no distension. Extremities- no pretibial edema, no erythema seen Neuro- alert, oriented PERRL, no facial palsy; no dysarthria; moves extremities Discharge Data Allergies Allergy/AdvReac Type Severity Reaction Status Date / Time Sulfa (Sulfonamide Allergy Severe face Verified 11/14/23 22:06 Antibiotics) tongue lips swelling,HEADACHE amoxicillin AdvReac Intermediate YEAST Verified 11/14/23 22:06 INFECTION clavulanic acid AdvReac Intermediate YEAST Verified 11/14/23 22:06 INFECTION codeine AdvReac Intermediate N/V Verified 11/14/23 22:06 Consultations 02/17/24 19:47 ED Decision to Admit Stat 02/18/24 08:00 Consult Cardiology Routine Hospital Course (1) Syncope: Per prior attending with addendum: 73-year-old female with past med history significant type 2 diabetes, hyperlipidemia, hypothyroidism, COPD, mild persistent asthma, nocturnal hypoxemia, hypertension, history of AR, CKD stage III, orthostatic hypotension, labile blood pressure, obesity, GERD, CKD stage III, degenerative disease, depr ession, and insomnia, general anxiety disorder, Periodic limb movement disorder history of tobacco abuse who lives alone at home comes because of orthostatic hypotension and syncope. Patient has history of orthostatic hypotension uses midodrine as needed. Labile Blood pressure Syncope History of orthostatic hypotension and on midodrine as needed History of labile blood pressure with multiple admission this year At home, she is on Coreg 6.25 twice daily and nifedipine 30 mg once a day for high blood pressure. Also takes midodrine as needed for low blood pressure as well. On presentation; hypotensive; responded well with IV fluids Echocardiogram shows EF of 65 to 70% with mild concentric LVH and grade 1 diastolic dysfunction home Coreg and nifedipine resumed as per cardiology midodrine as needed for low BP Patient reported that she was going to follow-up with nephrology; will consult them while she is here. COPD Continue home inhalers Obstructive sleep apnea Nocturnal hypoxemia Periodic limb movement disorder Follows with sleep CPAP nightly Type 2 diabetes Hold metformin Sliding scale Will monitor Hypertension On Coreg and nifedipine, continue Depression insomnia General anxiety disorder Continue home medications DVT prophylaxis Heparin subcu Disposition Telemetry Full code. Addendum 03/10: Patient was seen and examined at bedside, patient hemodynamically stable and would like to go home today. She stated that she will see nephrology as an outpatient. Discussed with nephrology, okay to follow-up as an outpatient. She is being discharged with following instruction at the point of discharge: Follow-up with your primary care physician within a week time and likely you will need labs CBC/CMP/magnesium/phosphorus. You have history of orthostatic hypotension, it is recommended that you take time to transition from lying to sitting position and sitting to standing position to avoid sudden drop in blood pressure and fall. As discussed at the bedside, take your Coreg 6.25 Mg twice a day in the morning and in the evening. Take your nifedipine at around noon daily. Take your blood pressure 2-3 times a day and maintain a log. If your systolic blood pressure falls below 100 mmHg, you may take a dose of midodrine. Do not take more than 3 doses of midodrine in 24-hour period. You can utilize thigh-high compression stocking and maintain adequate hydration to help prevent orthostatic hypotension. Follow-up with your cardiology in 3 to 5 weeks time. Follow-up with nephrology as an outpatient. Take your medications as prescribed. Please make sure that you are able to get your medications today by calling your pharmacy before you leave the hospital so that your treatment continuity is not broken. Please note the above document was generated using voice recognition software. It may contain grammatical, syntax or spelling errors. Any formal questions or concerns about the content, text or information contained within the body of this dictation should be directly addressed to the provider for clarification Home Health Attestation I certify that this patient is under my care and that I, or a physicians assistant media buyer working with me, had a face to-face encounter that meets the home health [id number] encounter requirements with this patient. The encounter with the patient was in whole, or in part, for the following medical condition, which is the primary reason for home health care (list medical condition): I certify that, based on my findings, the following services are medically necessary home health services: My clinical findings support the need for the above services because: Further, I certify that my clinical findings support that this patient is homebound (i.e. absences from home require considerable and taxing effort and are for medical reasons or protestant services or infrequently or of short duration when for other reasons) because: Certification for Home Health Services: Based on the above findings, I certify that this patient is confined to the home and needs intermittent chcf care, physical therapy and/or speech therapy or continues to need occupational therapy. The patient is under my care, and I have initiated the establishment of the plan of care. This patient will be followed by a physician who will periodically review the plan of care. Total Time Total Time Spent Total Time Spent (In Minutes): 45 Discharge Plan Discharge Items Patient Disposition: Home - Home Health Services Reason For Visit: HYPOTENSION,SYNCOPE Discharge Diagnosis: Syncope Labile blood pressure Activity: Per Instructions section Activity Comment: Slow transition during change in position. Non-emergency contact: Primary Care Provider Call non-emergency contact if: you have any medication questions and your symptoms worsen Follow-up/Referrals: Patti Posadas MD [Primary Care Provider] - (Date & Time 02/24/2024 11:40 AM Provider Patti Posadas MD [facility] ) Noelle Santamaria CRNP [Nurse Practitioner] - (The Cardiology office will contact you for a follow up appointment.) Diet: Carb Count or DM1 Diet Texture: Easy to Chew Addtl Attending Provider Instructions: Follow-up with your primary care physician within a week time and likely you will need labs CBC/CMP/magnesium/phosphorus. You have history of orthostatic hypotension, it is recommended that you take time to transition from lying to sitting position and sitting to standing position to avoid sudden drop in blood pressure and fall. As discussed at the bedside, take your Coreg 6.25 Mg twice a day in the morning and in the evening. Take your nifedipine at around noon daily. Take your blood pressure 2-3 times a day and maintain a log. If your systolic blood pressure falls below 100 mmHg, you may take a dose of midodrine. Do not take more than 3 doses of midodrine in 24-hour period. You can utilize thigh-high compression stocking and maintain adequate hydration to help prevent orthostatic hypotension. Follow-up with your cardiology in 3 to 5 weeks time. Follow-up with nephrology as an outpatient. Take your medications as prescribed. Please make sure that you are able to get your medications today by calling your pharmacy before you leave the hospital so that your treatment continuity is not broken. Pending Studies at Discharge: No Stand-Alone Forms: My [facility] [employer], Smoking Cessation Medications and DC Order Prescriptions: Continued metformin 500 mg tablet 500 mg PO BID fluticasone propion-salmeterol 250-50 mcg/dose blister with device 1 inh INHALATION BID carvedilol 6.25 mg tablet 6.25 mg PO BID albuterol sulfate 2.5 mg /3 mL (0.083 %) solution for nebulization 2.5 mg continuous nebulization Q4H PRN (Reason: Shortness Of Breath Or Wheezing) atorvastatin 10 mg tablet 10 mg PO DAILY tizanidine 4 mg tablet 4 mg PO TID PRN (Reason: muscle spasms) aspirin 81 mg tablet,delayed release (DR/EC) 81 mg PO DAILY famotidine 20 mg tablet 20 mg PO BID mirtazapine 30 mg tablet 30 mg PO HS levothyroxine 125 mcg tablet 125 mcg PO DAILY montelukast 10 mg tablet 10 mg PO DAILY fluticasone propionate 50 mcg/actuation spray,suspension 2 spray INTRANASAL DAILY vitamin B complex Capsule 1 cap PO DAILY ascorbic acid (vitamin C) 1,000 mg tablet 1,000 mg PO DAILY cetirizine [Allergy Relief (cetirizine)] 10 mg tablet 10 mg PO DAILY doxepin 25 mg capsule 25 mg PO HS citalopram 20 mg tablet 20 mg PO DAILY hydroxyzine HCl 25 mg tablet 25 mg PO BID PRN (Reason: Anxiety) albuterol sulfate [Ventolin HFA] 90 mcg/actuation HFA aerosol inhaler 2 puff INHALATION Q6H PRN (Reason: Shortness Of Breath Or Wheezing) olopatadine 0.2 % Drops 1 drp OPHTHALMIC (EYE) DAILY midodrine 2.5 mg tablet 2.5 mg PO UD PRN (Reason: Hypotension) Qty: 0 0RF Rx Instructions: Every 8 hours PRN SBP <100 mmHg. Changed nifedipine 30 mg tablet extended release 30 mg PO 1200 Qty: 0 0RF Discharge Orders: Discharge Order (Routine); Ordered 02/19/24 Ordered By: Melba Brown/Other Patient Handouts: Managing Type 2 Diabetes Admission Data Admit Date/Time: 02/17/24 20:55 Attending Provider: Melba Morales Admit Provider: Pawel May Primary Care Provider: Patti Posadas Other Providers: Pwael May; He Lepe
== END 2024-02-19 16:36 | disposition home health service (06) | DRG 312 ==
LOC: ED 16:37 → SUATTDRO 20:55 → EDINP 20:55 → 1E 23:55

== ENCOUNTER 2024-07-08 11:20 | Inpatient (IN) ==
--- NOTE | 2024-07-08 11:52 | Electrocardiogram Report ---
Test Reason : Blood Pressure : */* mmHG Vent. Rate : 75 BPM Atrial Rate : 75 BPM P-R Int : 144 ms QRS Dur : 74 ms QT Int : 398 ms P-R-T Axes : 48 23 32 degrees QTcB Int : 444 ms Normal sinus rhythm Normal ECG When compared with ECG of 19-Mar-2024 11:09, No significant change was found Confirmed by Gera Castellanos ([id number]) on 07/08/2024 11:51:50 AM Referred By: Confirmed By: Gera Castellanos
[2024-07-08 11:56] LABS: Basophils # (auto) 0.02 K/uL (0.00-0.20); Basophils % (auto) 0.2 %; Eosinophils # (auto) 0.57 K/uL (0.00-0.50); Eosinophils % (auto) 5.7 %; Hematocrit (blood only) 35.7 % (37.0-47.0); Hemoglobin 12.4 g/dl (12.0-16.0); Immature Granulocytes # (auto) 0.05 K/uL (0.01-0.20); Immature Granulocytes % (auto) 0.5 %; Lymphocytes # (auto) 0.47 K/uL (1.20-3.40); Lymphocytes % (auto) 4.7 %; Mean Corpuscular Hemoglobin 29.7 pg (25.0-34.0); Mean Corpuscular Hgb Conc 34.7 g/dL (32.0-36.0); Mean Corpuscular Volume 85.6 fL (80.0-100.0); Mean Platelet Volume 11.4 fL (9.4-12.4); Neutrophils # (auto) 8.55 K/uL (1.40-6.50); Neutrophils % (auto) 84.9 %; Platelet Count 218 K/uL (130-400); RDW Coefficient of Variation 13.6 % (11.5-14.5); RDW Standard Deviation 42.7 fL (36.4-46.3); Red Blood Count 4.17 M/uL (4.20-5.40); White Blood Count 10.06 K/ul (4.8-10.8)
[2024-07-08] MEDS: SODIUM CHLORIDE 0.9% 1,000 ML IV SCH ×2 (11:58→20:00)
[2024-07-08 12:15] LABS: Alanine Aminotransferase 201 U/L (7-52); Albumin Level 3.6 gm/dl (3.4-5.0); Alkaline Phosphatase 135 U/L (34-104); Anion Gap 10 (3-11); Aspartate Aminotransferase 187 U/L (13-39); BUN Creatinine Ratio 14.3 (10-20); Bilirubin Direct 0.7 mg/dl (0-0.2); Bilirubin,Total 1.5 mg/dl (0.2-1.0); Blood Urea Nitrogen 21 mg/dl (6-23); Calcium 8.7 mg/dl (8.6-10.3); Carbon Dioxide 26 mmol/L (21-32); Chloride 95 mmol/L (98-107); Glucose 126 mg/dl (70-99(Fasting)); Magnesium 1.6 mg/dl (1.7-2.4); Potassium 3.8 mmol/L (3.5-5.1); Sodium 131 mmol/L (136-145); Total Protein 6.5 gm/dl (6.0-8.3)
[2024-07-08 12:21] LABS: Troponin I High Sensitivity 5.2 pg/ml (0-14)
[2024-07-08 12:24] LABS: Partial Thromboplastin Time 27 Seconds (21-31); Prothrombin Time 11.3 Seconds (9.0-12.0)
--- NOTE | 2024-07-08 12:39 | XRay Report ---
XR chest 1V portable CLINICAL HISTORY: Sepsis. COMPARISON STUDY: Chest radiograph March 19, 2024. Chest CT December 09, 2013. FINDINGS: Lung volumes are normal. Lungs are clear. There is no pneumothorax or pleural effusion. Car diac size is at the upper limits of normal. Mediastinal contours are normal. There is no evidence for pulmonary edema. Subtle interstitial thickening is likely chronic. IMPRESSION: No acute cardiopulmonary findings. No significant change in appearance of the chest. ACT 112: Negative or not required by law. Electronically signed by: Vinny Dobbins M.D. 07/08/2024 12:38 PM
[2024-07-08] MEDS: ONDANSETRON INJ 2 MG/ML 2 ML VIAL IV STA ×2 (12:40→16:07)
[2024-07-08] MEDS: ACETAMINOPHEN 1,000 MG/100 ML VIAL IV STA (12:41)
[2024-07-08 12:57] LABS: Appearance Urine Cloudy (Clear); Bacteria Urine Automated None Seen (None Seen); Bilirubin Urine 1+ (Negative); Blood Urine Negative (Negative); Cast Urine Automated >20 /lpf (0-2); Color Urine Dark Yellow; Glucose Urine UA Negative (Negative); Ketones Urine Trace (Negative); Leukocyte Esterase Urine 1+ (Negative); Mucus Urine Present (None Prsent); Nitrite Urine Negative (Negative); Protein Urine 1+ (Negative); Specific Gravity Urine 1.018 (1.000-1.030); Urobilinogen Urine Negative (Negative); pH Urine 5.5 (4.5-7.5)
[2024-07-08 13:01] LABS: Adenovirus PCR Not Detected (NotDetected); Bordetella parapertussis PCR Not Detected (NotDetected); Bordetella pertussis PCR Not Detected (NotDetected); Chlamydia pneumoniae PCR Not Detected (NotDetected); Coronavirus 229E PCR Not Detected (NotDetected); Coronavirus CoV-2 (COVID19)PCR Not Detected (NotDetected); Coronavirus HKU1 PCR Not Detected (NotDetected); Coronavirus NL63 PCR Not Detected (NotDetected); Coronavirus OC43PCR Not Detected (NotDetected); Human Metapneumovirus PCR Not Detected (NotDetected); Influenza A PCR Not Detected (NotDetected); Influenza B PCR Not Detected (NotDetected); Mycoplasma pneumoniae PCR Not Detected (NotDetected); Parainfluenza Virus 1 PCR Not Detected (NotDetected); Parainfluenza Virus 2 PCR Not Detected (NotDetected); Parainfluenza Virus 3 PCR Not Detected (NotDetected); Parainfluenza Virus 4 PCR Not Detected (NotDetected); Respiratory Syncytial VirusPCR Not Detected (NotDetected); Rhinovirus/Enterovirus PCR Not Detected (NotDetected)
--- NOTE | 2024-07-08 13:14 | CT Scan Report ---
CT abd pelvis wo con CLINICAL HISTORY: abd pain, urinary symptoms, hypotension TECHNIQUE: Helical axial images of the abdomen and pelvis were obtained. Automated dose lowering tech niques and/or adjustment according to patient size were utilized for this exam. This exam was perfor med without intravenous contrast. CT DOSE: 1324.46 mGy.cm COMPARISON: Comparison is made to CT abdomen pelvis 06/06/2024 FINDINGS: Lower chest: Mitral annular calcification is seen. Peripheral interstitial thickening is seen in the lungs. Liver: Hepatic steatosis is noted. Calcifications are seen in the liver which may represent prior gra nulomatous disease. Gallbladder and biliary tree: No calcified gallstones. Normal caliber wall. No intra- or extrahepatic biliary ductal dilation. Pancreas: Unremarkable, no focal lesions. Spleen: Unremarkable. Adrenals: Unremarkable. Kidneys and ureters: Unremarkable. Bladder: A Zimmerman catheter is seen. There is thickening of the bladder wall. Reproductive organs: Patient is status post hysterectomy. Bowel: Diverticulosis is seen without evidence of diverticulitis. Lymph nodes Retroperitoneal: Unremarkable. Pelvic: Unremarkable. Mesenteric: Unremarkable. Peritoneum: Normal. Vessels: Atherosclerotic calcifications are seen. Abdominal wall: Unremarkable. Bones: Degenerative changes in the visualized spine. Bilateral hip arthroplasties noted. IMPRESSION: 1. Bladder wall thickening is seen which may represent cystitis or simply be a result of underdisten tion. Otherwise no acute abnormalities are seen. 2. Diverticulosis without diverticulitis. 3. Hepatic steatosis. ACT 112: Negative or not required by law. Electronically signed by: Yariel Aparicio M.D. 07/08/2024 1:12 PM
[2024-07-08] MEDS: CEFEPIME 2000MG 2,000 MG/20 ML SYR IV STA (14:02)
[2024-07-08] MEDS: SODIUM CHLORIDE 0.9% 1,000 ML IV ONE (14:52)
--- NOTE | 2024-07-08 14:58 | Ultrasound Report ---
US gallbladder CLINICAL HISTORY: elevated LFTs, sepsis, hypotension COMPARISON STUDY: 09/22/[address] of 07/08/2024. FINDINGS: Pancreatic tail is obscured. There is dilatation of the pancreatic duct measuring up to 6 m m diameter. Visualized pancreatic body is otherwise unremarkable. Liver measures 23 cm. There is norm al direction of flow in the portal vein. Liver demonstrates diffusely increased heterogeneous echotex ture. No focal liver abnormality seen. Gallbladder is unremarkable with no gallstones or gallbladder wall thickening. No pericholecystic fluid or ascites. Right kidney shows no hydronephrosis. Common bi le duct measures normal diameter of 5 mm. IMPRESSION: 1. Fatty liver. 2. No gallstones or evidence of acute cholecystitis seen. 3. Dilated pancreatic duct with no gross mass seen by ultrasound. Consider follow-up CT with IV contr ast with pancreatic protocol. ACT 112: Negative or not required by law. Electronically signed by: Isma Shields M.D. 07/08/2024 2:57 PM
--- NOTE | 2024-07-08 16:34 | History & Physical Report ---
Date of Service July 08, 2024 Assessment & Plan (1) Hematuria: (2) Elevated LFTs: (3) Symptomatic hypotension: (4) Labile blood pressure: (5) Hypomagnesemia: (6) Acute kidney injury superimposed on CKD: (7) Dyslipidemia: (8) Diabetes mellitus, type II: (9) Anxiety and depression: (10) COPD (chronic obstructive pulmonary disease): (11) ADRI (obstructive sleep apnea): Plan: Patient is 73 year old female with PMH HTN, dyslipidemia, DM II, CKD III, COPD, depression, anxiety, ADRI, nocturnal hypoxia presented to ER with c/o nausea and fatigue x 5 days after starting Macrobid after 07/03/2024 cystoscopy for hematuria. #Elevated LFTs #Hypotension #Hematuria #History labile hypertension In ER afebrile, P: 74, R: 18, 95% on RA, BP: 97/59 dropped to SBP 80 and up to SBP 90's after 2L NSS No leukocytosis, Lactate: WNL, procalcitonin: 4 T bili: 1.5, AST: 187, ALT: 201, Alk Phos: 135 (Previously LFTs normal) UA: 1+ bilirubin, 1+ leuk esterase, 6-10 WBC, 3-5 RBC, no bacteria Gallbladder US: Fatty liver. No gallstones or evidence of acute cholecystitis seen. Dilated pancreatic duct with no gross mass seen by ultrasound CT Abd/pelvis: Bladder wall thickening is seen which may represent cystitis or simply be a result of underdistention. Otherwise no acute abnormalities are seen. Diverticulosis without diverticulitis. Hepatic steatosis. CXR: no acute infiltrate Blood culture pending Urine culture pending In ER given 2L NSS, zofran, cefepime Will change to Zosyn to cover for possible UTI or GI source such as cholangitis. Possible elevated LFTs secondary to medication - Macrobid. Hold Macrobid Pt with known orthostatic hypotension and h/o labile BP. Has midodrine to use prn Gentle IVF Hold home carvedilol, nifedipine at this time Continue home midodrine prn Clear liquid diet. NPO [facility] consult CBC, CMP in am Urology, Dr Vicente has pending outpatient workup for possible pheochromocytoma #Hypomagnesemia Magnesium: 1.6 Replace and monitor #ADI on CKD III Cr: 1.47. baseline Cr ~1.1 Gentle IVF as above Avoid nephrotoxic agents when possible Monitor renal functions #Dyslipidemia Continue atorvastatin #Anxiety, Depression Continue home medications #ADRI #Nocturnal hypoxia CPAP HS DVT Prophylaxis Heparin SQ Admit telemetry Full Code as per discussion with pt Follows with Dr Posadas for routine care Pt was seen and care coordinated with Dr Powell . See addendum I spent a total of 75 minutes reviewing notes, outpatient records, labs, medication, coordinating, documenting and providing care for this patient excluding time spent in the performance of separately billed services. History of Present Illness Chief Complaint: nausea, fatigue Primary Care Provider: Patti Posadas MD Patient is 73 year old female with PMH HTN, dyslipidemia, DM II, CKD III, COPD, depression, anxiety, ADRI, nocturnal hypoxia presented to ER with c/o nausea and fatigue x 5 days. Patient has been having intermittent hematuria and on 07/03/2024 cystoscopy for hematuria and suspected bladder tumor performed by by Dr. Vicente and was placed on nitrofurantoin for 7-day course. Patient states since starting antibiotic has been having nausea and decreased appetite and decreased oral intake. States for months having lower abdominal pressure that is worse with urinating and having dysuria. Denies other abdominal pain. Denies vomiting or diarrhea. States also having generalized weakness and fatigue past 5 days. Denies fever/chills, [place], syncope, vision changes, neck pain, CP, SOB, palpitations, cough, sore throat, rhinorrhea, extremity weakness, extremity edema, rashes. Allergies Allergy/AdvReac Type Severity Reaction Status Date / Time Sulfa (Sulfonamide Allergy Severe face Verified 06/24/24 10:39 Antibiotics) tongue lips swelling,HEADACHE amoxicillin AdvReac Intermediate YEAST Verified 06/24/24 10:39 INFECTION clavulanic acid AdvReac Intermediate YEAST Verified 06/24/24 10:39 INFECTION codeine AdvReac Intermediate N/V Verified 06/24/24 10:39 Home Medications Medication Instructions Recorded Confirmed Type albuterol sulfate 2.5 mg/3 mL 2.5 mg continuous nebulization Q4H 02/17/24 07/08/24 History (0.083 %) solution for nebulization PRN Shortness Of Breath Or Wheezing albuterol sulfate 90 mcg/actuation 2 puff inhalation Q6H PRN 02/17/24 07/08/24 History aerosol inhaler (Ventolin HFA) Shortness Of Breath Or Wheezing ascorbic acid (vitamin C) 1,000 mg 1,000 mg PO DAILY 02/17/24 07/08/24 History tablet aspirin 81 mg tablet,delayed 81 mg PO DAILY 02/17/24 07/08/24 History release atorvastatin 10 mg tablet 10 mg PO HS 02/17/24 07/08/24 History carvedilol 6.25 mg tablet 6.25 mg PO BID 02/17/24 07/08/24 History cetirizine 10 mg tablet (Allergy 10 mg PO DAILY 02/17/24 07/08/24 History Relief (cetirizine)) citalopram 20 mg tablet 20 mg PO DAILY 02/17/24 07/08/24 History doxepin 25 mg capsule 25 mg PO HS 02/17/24 07/08/24 History famotidine 20 mg tablet 20 mg PO BID 02/17/24 07/08/24 History fluticasone 250 mcg-salmeterol 50 1 inh inhalation BID 02/17/24 07/08/24 History mcg/dose blistr powdr for inhalation fluticasone propionate 50 2 spray intranasal DAILY 02/17/24 07/08/24 History mcg/actuation nasal spray,suspension hydroxyzine HCl 25 mg tablet 25 mg PO BID PRN Anxiety 02/17/24 07/08/24 History levothyroxine 125 mcg tablet 125 mcg PO DAILY 02/17/24 07/08/24 History metformin 500 mg tablet 500 mg PO BID 02/17/24 07/08/24 History mirtazapine 30 mg tablet 30 mg PO HS 02/17/24 07/08/24 History montelukast 10 mg tablet 10 mg PO DAILY 02/17/24 07/08/24 History tizanidine 4 mg tablet 4 mg PO TID PRN muscle spasms 02/17/24 07/08/24 History vitamin B complex 1 cap PO DAILY 02/17/24 07/08/24 History midodrine 2.5 mg tablet 2.5 mg PO UD PRN Hypotension #0 02/19/24 07/08/24 Rx tabs nifedipine 30 mg tablet,extended 30 mg PO 1200 #0 tabs 02/19/24 07/08/24 Rx release diclofenac sodium 1 % topical gel 2 g topical QID 03/04/24 07/08/24 History (Arthritis Pain (diclofenac)) lorazepam 0.5 mg tablet 0.5 mg PO DAILY PRN ANXIETY 03/04/24 07/08/24 History omega-3 300 mg-dha 120 mg-epa 180 1 cap PO DIRECTED 03/04/24 07/08/24 History mg-fish oil 1,000 mg capsule perphenazine 2 mg tablet 2 mg PO DAILY 03/04/24 07/08/24 History triamcinolone acetonide 0.5 % 1 applic topical DIRECTED 03/04/24 07/08/24 History topical cream turmeric 450 mg-turmeric root 1 cap PO DIRECTED 03/04/24 07/08/24 History extract 50 mg capsule vitamin E (dl, acetate) 180 mg 180 mg PO DAILY 03/04/24 07/08/24 History (400 unit) capsule citalopram 10 mg tablet (Celexa) 10 mg PO DAILY 06/06/24 07/08/24 History garlic 1,000 mg capsule 1,000 mg PO UD 06/06/24 07/08/24 History phenazopyridine 100 mg tablet 100 mg PO TID PRN pain #15 tabs 06/06/24 07/08/24 Rx (Pyridium) Past Med/Surg History Problem List Acute kidney injury superimposed on CKD Elevated LFTs (Acute) Nausea (Acute) Acute UTI (urinary tract infection) (Acute) Bladder tumor Syncope Dizziness (Acute) Hypomagnesemia (Acute) Orthostatic hypotension (Acute) Symptomatic hypotension Dizziness (Acute) Neuroforaminal stenosis of lumbar spine Protrusion of lumbar intervertebral disc Labile blood pressure Acid reflux well controlled ADRI (obstructive sleep apnea) Hypomagnesemia (Acute) Failure of outpatient treatment (Acute) Headache (Acute) Hypertension (Acute) Hypomagnesemia CKD (chronic kidney disease), stage III Hypertensive urgency ADI (acute kidney injury) (Acute) Slurred speech (Acute) Acute dehydration (Acute) Acute hypotension (Acute) Protrusion of intervertebral disc of thoracic region Degenerative spondylolisthesis Lumbar stenosis with neurogenic claudication Cervical pain Greater trochanteric bursitis of left hip History of heart attack 1996- medically managed Hypotensive episode (Acute) Diabetes mellitus, type II COPD (chronic obstructive pulmonary disease) Dyslipidemia Nocturnal hypoxemia 2L O2 HS Hypertension Hypothyroidism Anxiety and depression History of total left hip arthroplasty (~11/2019) Medical History Obesity Fatty liver Arthritis Degenerative disc disease Sciatica Thyroid enlarged no dysphagia Asthma mild, "well controlled and stable", rare inhaler use Surgical History History of colonoscopy History of left cataract surgery History of right cataract surgery History of right hip replacement History of hysterectomy History of hernia repair History of cardiac cath FOLLOWING HEART ATTACK, NO FINDINGS 1996 Family History Mother Family history of diabetes mellitus Aunt Family history of diabetes mellitus Son Family history of colon cancer Social History Smoking Status: Former smoker Tobacco Type: Cigarettes Second Hand Exposure: No; Do You Dip or Chew Tobacco: No; Hx Alcohol Use: No Hx Substance Use: No Preferred Language: Yoruba Communication Ability: Effective Visual Impairment: No Limitations Hearing Ability: Normal Stained Glass Artist Required: No Beliefs That Will Affect Care: None Current Living Situation: Alone Current Living Situation Comment: caregiver somedays current occupational status: retired Feels Safe at Home: Yes Safety Concerns Comment: office of aging is visiting her tomorrow regarding getting more help @ home Assistive Devices: CPAP, Nebulizer, Oxygen - at Night, Raised Toilet Seat and Walker Review of Systems Review of Systems: All systems reviewed & are unremarkable except as noted in HPI & below Physical Exam Physical Exam: General: no acute distress, overweight elderly female Head: normocephalic, atraumatic Eyes: conjunctiva non-injected, anicteric ENT: normal inspection external ears, nose, mucous membranes dry Neck: supple, trachea midline Lungs: clear, no respiratory distress, no wheezing/rhonchi/rales CV: RRR, + murmur, no pretibial edema Abd: protuberant, normal BS, soft, non-tender to palpation RUQ, +mild tenderness to palpation epigastric, LUQ, diffuse lower abdominal without guarding or re bound Ext: no cyanosis, no calf tenderness Neuro: A&O x 3, no focal deficits noted, normal affect Skin: warm, dry Results & Data Results & Data Vital Signs (Past 12 Hours) Vital Signs Temp Pulse Pulse Resp BP BP Pulse Ox 07/08/24 15:30 75 18 99/61 L 96 07/08/24 15:02 75 18 93 07/08/24 15:00 105/61 07/08/24 14:59 75 24 95 07/08/24 14:38 74 17 95 07/08/24 14:14 76 22 93 07/08/24 14:00 88/57 L 07/08/24 13:59 72 19 95 07/08/24 13:36 73 22 93 07/08/24 13:34 80/63 L 07/08/24 13:12 74 19 92 07/08/24 13:04 99/56 L 07/08/24 13:04 99/56 L 94 07/08/24 12:39 75 21 07/08/24 12:34 80 07/08/24 12:12 74 24 07/08/24 12:06 07/08/24 12:00 102/66 07/08/24 11:57 74 19 07/08/24 11:33 75 23 96 07/08/24 11:30 97/59 L 07/08/24 11:28 07/08/24 11:28 36.8 C 74 18 115/68 95 O2 Del Method 07/08/24 15:30 Room Air 07/08/24 15:02 Room Air 07/08/24 15:00 07/08/24 14:59 Room Air 07/08/24 14:38 Room Air 07/08/24 14:14 Room Air 07/08/24 14:00 07/08/24 13:59 Room Air 07/08/24 13:36 07/08/24 13:34 07/08/24 13:12 07/08/24 13:04 07/08/24 13:04 07/08/24 12:39 07/08/24 12:34 07/08/24 12:12 07/08/24 12:06 Room Air 07/08/24 12:00 07/08/24 11:57 07/08/24 11:33 Room Air 07/08/24 11:30 07/08/24 11:28 Room Air 07/08/24 11:28 Room Air Laboratory Results Short CBC 07/08/24 Range/Units 11:34 WBC 10.06 (4.8-10.8) K/ul Hgb 12.4 (12.0-16.0) g/dl Hct 35.7 L (37.0-47.0) % Plt Count 218 (130-400) K/uL BMP 07/08/24 11:34 Sodium 131 L Potassium 3.8 Chloride 95 L Carbon Dioxide 26 BUN 21 Creatinine 1.47 H Glucose 126 H Calcium 8.7 Liver Function 07/08/24 Range/Units 11:34 Total Bilirubin 1.5 H (0.2-1.0) mg/dl Direct Bilirubin 0.7 H (0-0.2) mg/dl AST 187 H (13-39) U/L ALT 201 H (7-52) U/L Alkaline Phosphatase 135 H (34-104) U/L Albumin 3.6 (3.4-5.0) gm/dl Urine 07/08/24 Range/Units 12:31 Urine Color Dark Yellow Urine Appearance Cloudy A (Clear) Urine pH 5.5 (4.5-7.5) Ur Specific [place] 1.018 (1.000-1.030) Urine Protein 1+ H (Negative) Urine Glucose (UA) Negative (Negative) Diagnostic Findings Chest X-Ray 07/08/24 11:45 XR chest 1V portable CLINICAL HISTORY: Sepsis. COMPARISON STUDY: Chest radiograph March 19, 2024. Chest CT December 09, 2013. FINDINGS: Lung volumes are normal. Lungs are clear. There is no pneumothorax or pleural effusion. Cardiac size is at the upper limits of normal. Mediastinal contours are normal. There is no evidence for pulmonary edema. Subtle int erstitial thickening is likely chronic. IMPRESSION: No acute cardiopulmonary findings. No significant change in appearance of the chest. ACT 112: Negative or not required by law. Electronically signed by: Vinny Dobbins M.D. 07/08/2024 12:38 PM Abdomen/Pelvis CT 07/08/24 12:27 CT abd pelvis wo con CLINICAL HISTORY: abd pain, urinary symptoms, hypotension TECHNIQUE: Helical axial images of the abdomen and pelvis were obtained. Automated dose lowering techniques and/or adjustment according to patient size were utilized for this exam. This exam was performed without intravenous contrast. CT DOSE: 1324.46 mGy.cm COMPARISON: Comparison is made to CT abdomen pelvis 06/06/2024 FINDINGS: Lower chest: Mitral annular calcification is seen. Peripheral interstitial thickening is seen in the lungs. Liver: Hepatic steatosis is noted. Calcifications are seen in the liver which may represent prior granulomatous disease. Gallbladder and biliary tree: No calcified gallstones. Normal caliber wall. No intra- or extrahepatic biliary ductal dilation. Pancreas: Unremarkable, no focal lesions. Spleen: Unremarkable. Adrenals: Unremarkable. Kidneys and ureters: Unremarkable. Bladder: A Zimmerman catheter is seen. There is thickening of the bladder wall. Reproductive organs: Patient is status post hysterectomy. Bowel: Diverticulosis is seen without evidence of diverticulitis. Lymph nodes Retroperitoneal: Unremarkable. Pelvic: Unremarkable. Mesenteric: Unremarkable. Peritoneum: Normal. Vessels: Atherosclerotic calcifications are seen. Abdominal wall: Unremarkable. Bones: Degenerative changes in the visualized spine. Bilateral hip arthroplasties noted. IMPRESSION: 1. Bladder wall thickening is seen which may represent cystitis or simply be a result of underdistention. Otherwise no acute abnormalities are seen. 2. Diverticulosis without diverticulitis. 3. Hepatic steatosis. ACT 112: Negative or not required by law. Electronically signed by: Yariel Aparicio M.D. 07/08/2024 1:12 PM Gallbladder Ultrasound 07/08/24 13:41 US gallbladder CLINICAL HISTORY: elevated LFTs, sepsis, hypotension COMPARISON STUDY: 09/22/[address] of 07/08/2024. FINDINGS: Pancreatic tail is obscured. There is dilatation of the pancreatic duct measuring up to 6 mm diameter. Visualized pancreatic body is otherwise unremarkable. Liver measures 23 cm. There is normal direction of flow in the portal vein. Liver demonstrates diffusely increased heterogeneous echotexture. No focal liver abnormality seen. Gallbladder is unremarkable with no gallstones or gallbladder wall thickening. No pericholecystic fluid or ascites. Right kidney shows no hydronephrosis. Common bile duct measures normal diameter of 5 mm. IMPRESSION: 1. Fatty liver. 2. No gallstones or evidence of acute cholecystitis seen. 3. Dilated pancreatic duct with no gross mass seen by ultrasound. Consider foll ow-up CT with IV contrast with pancreatic protocol. ACT 112: Negative or not required by law. Electronically signed by: Isma Shields M.D. 07/08/2024 2:57 PM Supervising Physician Co-Signing Physician Notes I have seen and discussed the case with the collaborating advanced practitioner. I agree with the above H&P. I have reviewed and confirmed the patients medical history, the findings on physical examination, and the patients diagnosis and treatment plan with Abdi ALVAREZ and agree with the information documented. In short, Ms. Palmer is a 73 yo woman presenting to ED with nausea and fatigue. Patient has been undergoing workup for hematuria and now s/p cystoscopy. She experienced some dysuria and notes that since starting abx on , she has had poor appetite and nausea. Exam with mildly anxious elderly woman AO3, no clear localizing abdominal pain, though reports discomfort to nearly all degrees of palpation, no focal neuro deficits Labs reviewed #Transaminitis suspect DILI recently started on macrobid, US abd without sign of cholecystitis, CT abd unremarkable Nausea, poor appetite noted elevated eosinophils and left shift, will start empiric zosyn incase any concern for cholangitis however suspect DILI follow infectious w/u trend cmp GI consult IVF #Hyponatremia #Hypomagnesemia likely iso poor po IVF and replace prn bmp in am #ADI on CKD likely prerenal iso dehydration bmp in am avoid nephrotoxic agents #Hematuria s/p cystoscopy 07/03 #Bladder tumor #Dysuria worked up for Pheochromocytoma per Urology Dr Vicente started on macrobid on 07/03 given liver elevations will discontinue Macrobid iso negative cx rest of plan as above I spent a total of 35 minutes coordinating, documenting, and providing care for this patient excluding time spent in the performance of separately billed services. All of the aforementioned completed outside of collaborating with the assigned advanced practitioner for a full treatment plan. I have reviewed the advanced practitioner's documentation, and I agree with, and take responsibility for the plan of care (1) Hematuria Hematuria type: unspecified type Qualified Code(s): R31.9 - Hematuria, unspecified
--- OUTSIDE RECORDS SUMMARY | 2024-07-08 16:46 | External Medical Summary | Summary of Care ---
Author Name Unknown Organization [facility] Address [address] [place] [address] Phone [phone] Care Team Providers Care Expediter Service Order Name Role Phone Patti Posadas MD Primary Care Provider [phone] Encounter Details Date Type Department Care Team (Late st Contact Info) Description 07/06/2024 Population Health External Data Unspecified Department Allergies Active Allergy Reactions Criticality Noted Date Comments Amoxicillin-Pot Clavulanate Other (Please comment) 01/14/2015 Severe Yeast infection Morphine And Codeine Unknown 02/19/2003 Codeine makes her vomit Sulfa Antibiotics Edema face/lips/tongue,Oth er (Please comment) High 02/19/2003 Headache documented as of this encounter (statuses as of 07/06/2024) Medications PERPHENAZINE 2 MG PO TABS Take 1 Tablet by mouth at bedtime. 03/23/24 Pt states takes 3 tablets at bedtime 02/10/20 14 Active LORAzepam (ATIVAN) 0.5 MG Tablet Take 1 Tablet by mouth at bedtime as needed for Anxiety or Insomnia. 30 Tab 0 08/22/19 16 Active Dudley-3 Fatty Acids (FISH OIL) 1200 MG CAPS Take 1 Cap by mouth daily. Active doxepin (SINEQUAN) 25 MG Capsule Take 1 Cap by mouth at bedtime. 90 Cap 3 05/15/20 17 Active hydrOXYzine HCl 25 MG Oral Tablet Take 1 Tablet by mouth 2 times a day as needed. 01/05/20 22 Active CPAP every night at bedtime. Active Citalopram Hydrobromide 10 MG Oral Tablet (CeleXA) Take 1 Tablet by mouth in the morning. 12/12/19 23 Active Citalopram Hydrobromide 20 MG Oral Tablet (CeleXA) Take 1 Tablet by mouth in the morning. 12/12/19 23 Active Vitamin C 1000 MG Oral Tablet TAKE ONE TABLET BY MOUTH EVERY DAY 28 Tablet 11 03/18/20 23 Active Fluticasone Propionate 50 MCG/ACT Nasal Suspension (Flonase)Indicatio ns:Chronic rhinitis INSTILL 2 SPRAYS INTO EACH NOSTRIL DAILY 48 g 3 07/18/19 24 Active Midodrine HCl 2.5 MG Oral Tablet (Proamatine) Take one tab twice daily as needed for orthostatic hypotension less than 80/50 After taking it, please repeat check BP in 30 min 60 Tablet 5 08/06/19 24 Active Depend Underwear X-Large Use 3-4 depends per day 130 Each 11 09/19/19 24 Active Albuterol Sulfate (2.5 MG/3ML) 0.083% Inhalation Nebulization Solution (Proventil)Indicat ions:COPD, mild (HCC),Centrilobula r emphysema (HCC),Hypoxemia INHALE 1 VIAL VIA NEBULIZER EVERY 4 HOURS NEEDED FOR WHEEZING OR SHORTNESS OF BREATHE (CHEST PRESSURE) 300 mL 5 10/15/19 24 Active Mirtazapine 30 MG Oral Tablet (Remeron) Take 1 Tablet by mouth at bedtime. 10/29/19 24 Active Carvedilol 6.25 MG Oral Tablet (Coreg) Take 1 Tablet by mouth in the morning and 1 Tablet before bedtime. With meals.. 180 Tablet 3 11/14/19 24 Active Albuterol Sulfate HFA 108 (90 Base) MCG/ACT Inhalation Aerosol Solution Inhale 2 Puffs by mouth every 6 hours as needed (SOB cough). 18 g 5 11/14/19 24 Active Spacer/Aero-Holdin g Chambers DeviceIndications: COPD, group B, by GOLD 2017 classification (HCC) Use with albuterol inhaler. 1 Each 11/19/19 24 Active Olopatadine HCl 0.2 % Ophthalmic Solution Instill 1 Drop into eye in the morning. 15 mL 3 12/13/19 24 Active Additional Information Patient not taking.Reported on 03/23/2024 Garlic 1000 MG Oral Capsule Take 1 Capsule by mouth in the morning. 90 Capsule 2 07/01/20 24 Active Levothyroxine Sodium 125 MCG Oral Tablet (Levoxyl)Indicatio ns:Acquired hypothyroidism TAKE ONE TABLET BY MOUTH EVERY DAY AT LEAST 30 MINUTES PRIOR TO BREAKFAST OR OTHER MEDICATIONS 90 Tablet 2 12/16/19 24 Active Montelukast Sodium 10 MG Oral Tablet (Singulair)Indicat ions:Allergic rhinitis due to other allergic trigger, unspecified seasonality Take 1 Tablet by mouth in the morning. In the morning.. 90 Tablet 2 12/16/19 24 Active Cetirizine HCl 10 MG Oral Tablet (ZyrTEC) Take 1 Tablet by mouth in the morning. In the morning.. 90 Tablet 2 12/16/19 24 Active Atorvastatin Calcium 10 MG Oral Tablet (Lipitor)Indicatio ns:Dyslipidemia Take 1 Tablet by mouth in the morning. In the morning.. 90 Tablet 2 12/16/19 24 Active Additional Information Patient taking differently:10 mg OralHS, In the morning., Reported on 03/23/2024 metFORMIN HCl 500 MG Oral Tablet (Glucophage) TAKE ONE TABLET BY MOUTH TWICE DAILY with morning and evening meals. 180 Tablet 2 12/16/19 24 Active Famotidine 20 MG Oral Tablet (Pepcid) Take 1 Tablet by mouth in the morning and 1 Tablet before bedtime. 180 Tablet 12/16/19 24 Active Turmeric Curcumin 500 MG Oral Capsule Take 1 Capsule by mouth in the morning. Every morning.. 90 Capsule 12/16/19 24 Active Triamcinolone Acetonide 0.5 % External Cream (Aristocort)Indica tions:Work Station Support Specialist's papule Apply 0.5 g topically to affected area in the morning and 0.5 g before bedtime. To affected area.. 60 g 1 12/19/19 24 Active tiZANidine HCl 4 MG Oral Tablet (Zanaflex) Take 1 Tablet by mouth every 8 hours as needed for Muscle spasms. 90 Tablet 01/02/20 24 Active Fish Oil 1000 MG Oral Capsule TAKE ONE CAPSULE BY MOUTH TWICE DAILY 56 Capsule 02/18/20 24 Active Diclofenac Sodium 1 % External Gel (Voltaren) Apply 1 g topically to affected area in the morning and 1 g before bedtime. 100 g 03/09/20 24 Active Vitamin B Complex Oral Capsule TAKE ONE CAPSULE BY MOUTH EVERY DAY 28 Capsule 03/16/20 24 Active Vitamin E 180 MG (400 UNIT) Oral Capsule TAKE ONE CAPSULE BY MOUTH TWICE DAILY 56 Capsule 11 03/16/20 24 Active hydrALAZINE HCl 10 MG Oral Tablet (Apresoline) Take 1 Tablet by mouth 3 times a day as needed (hypertension if SBP is more than 170/). 90 Tablet 5 03/20/20 24 Active Fluticasone-Salmet sadia 250-50 MCG/ACT Inhalation Aerosol Powder Breath Activated (Advair Diskus) Inhale 1 Puff by mouth in the morning and 1 Puff before bedtime. Rinse mouth after use.. 180 Each 3 03/27/20 24 Active Aspirin Low Dose 81 MG Oral Tablet Delayed Release (aspirin enteric coated) TAKE ONE TABLET BY MOUTH EVERY MORNING 90 Tablet 3 04/24/20 24 Active Nystatin 241574 UNIT/GM External Powder (Nystop)Indication s:Candidal skin infection APPLY TOPICALLY TO THE AFFECTED AREA THREE TIMES DAILY 30 g 3 05/07/20 24 Active NIFEdipine ER 30 MG Oral Tablet Extended Release 24 Hour (Adalat CC) TAKE ONE TABLET BY MOUTH EVERY MORNING 90 Tablet 3 05/25/20 24 Active Bladder Control Pads RegularIndications :Urinary incontinence Patient using 8-10 pads daily; 1 month supply = Qty 300 300 Each 12 06/26/19 25 Active documented as of this encounter (statuses as of 07/06/2024) Active Problems Problem Noted Date Diagnosed Date [...] disorder) 03/25/2018 Gastroesophageal reflux disease 03/25/2018 Old DC (myocardial infarction) 03/25/2018 Severe obesity with body mas s index (BMI) of 35.0 to 39.9 with serious comorbidity 04/29/2017 Mild persistent asthma without complication 02/15 Type 2 diabetes mellitus wit h hemoglobin A1c goal of less than 7.0% 02/25/2017 Acquired hypothyroidism 12/20/2016 Centrilobular emphysema 05/08/2016 Dyslipidemia, goal LDL below 100 07/04/2009 HTN, GOAL BELOW 140/90 04/22/2009 Overview (04/22/2009): Modified per HTN Taxonomy. DDD (degenerative disc disease), lumbar 04/02/20 05 Insomnia 02/19/2003 Overview (03/18/2017): ICD-10 update of inactive term documented as of this encounter (statuses as of 07/06/2024) Resolved Problems Problem Noted Date Diagnosed Date [...] Per CKD protocol #1 Hypoxemia 11/06/2011 02/25/2017 Overview (11/06/2011): 11/07/11 oxygen at 2 LPM during sleep, T and B Shortness of breath 08/29/2011 12/21/19 17 Overview (08/29/2011): 08/23/11 - Normal PFT and 6 MWT Genetic Sleep Disorder Resea [facility] Other*[id number] 08/27/2011 01/18/2016 Routine general medical exam ination at a health care facility 08/09/2011 12/20/2016 Overview (09/11/2011): 08/28 likely COPD per pulm consult, although PFTs looked essentially normal. Cardiac testing ordered hosp 07/25-08/03/11 likely w/COPD exacerbation responded to steroids, abx. Acute bronchitis, complicated 04/02/2011 08/09/2011 ADVANCE DIRECTIVE INFORMATION 11/20/2005 04/29/2017 Overview (11/20/2005): Declined information History of tobacco use 05/22/200403/04 OSTEOARTHRO NOS-OTH SITE 02/19/200304/2017 Anxiety state 02/19/2003 03/25/2018 Inflammation of sacroiliac joint 02/19/2003 08/22/2015 BENIGN HYPERTENSION 02/19/2003 04/22/20 09 Overview (04/22/2009): Modified per HTN Taxonomy. documented as of this encounter (statuses as of 07/06/2024) Immunizations Name Administration Dates Next Due COVID-19 mRNA, LNP-s, No Pre serve, 2-Dose Series (Moderna) 05/02/2021,08/10/2020,07/13/2020 COVID-19, MRNA-LNP, PF, 30 M CG/0.3 mL, 12 YRS AND ABOVE, IM (PFIZER-Comirnaty) 03/09/2024 H1N1 2009 Influenza, IM 07/01/2009 Pneumococcal Conjugate Vacc, 13 Valent (Prevnar) 08/16/2014 Pneumococcal Polysaccharide PPV23 (Pneumovax) 08/27/2016,05/08/2011 Season Influenza, Quad, PF, Adjuvanted, 65+ Yrs, IM (FLUAD) 02/17/2020 Seasonal Influenza Vac., MDV , IM, 0.5 mL (Fluzone) 02/16/2015,02/16/2014,09/12/2012,12/2010,05/19/2010,07/01/2009,04/29/20 07 Seasonal Influenza, High Dos e, Trivalent, PF, IM (Fluzone HD) 03/09/2024 Seasonal Influenza, MDCK, Tr ivalent, PF, (Flucelvax) 04/15/2013 Seasonal Influenza, PF, 6 M & above, IM , (FluLaval or Fluzone) 04/01/2019,03/25/2018,03/26/2017 03/25/2019 Seasonal Influenza, Quadriva lent Hd (Fluzone Hd) 02/23/2023,02/23/2022,03/10/2021 Seasonal Influenza, Quadriva lent, No Preserve, IM 02/28/2016 TDAP (age 10 and older)(Boostrix) 08/31/2020 TDAP, [...] the money to buy more. Never true 03/09/20 24 Within the past 12 months, t he food you bought just didn't last and you didn't have money to get more. Never true 03/09/2024 Childcare Answer Date Recorded Do you feel overwhelmed with taking care of a child, family member or friend? No 03/09/2024 Does your family need help f inding childcare? (Household - for ages 0-17 years) Not on file 03/09/2024 Clothing Answer Date Recorded Have you been unable to get clothing when it was really needed? No 03/09/2024 Is your family able to get c lothes or diapers when needed? (Household - for ages 0-17 years) Not on file 03/09/2024 Personal Safety Answer Date Recorded Do you feel unsafe or have concerns for your saf ety? No 03/09/2024 Do you have concerns for you r family's safety? (Household - for ages 0-17 years) Not on file 03/09/2024 Utilities Answer Date Recorded Do you have trouble paying y our heating, water, or electric bill? No 03/09/2024 Is your family able to pay t he heat, water, or electric bill? (Household - for ages 0-17 years) Not on file 03/09/2024 Does your family have access to good internet? (Household - for ages 0-17 years) Not on file 03/09/2024 Employment Status Answer Date Recorded Are you unemployed or without regular income? No 03/09/2024 Does the household have a [facility] source of income? (Household - for ages 0-17 years) Not on file 03/09/2024 Social Connections Answer Date Recorded How often do you feel lonely or isolated from th ose around you? Never 03/09/2024 Financial Resource Strain Answer Date R ecorded Do you have any trouble payi ng for your medications, or do you think you might in the future? No 03/09/2024 Does your family have troubl e paying for medicine? (Household - for ages 0-17 years) Not on file 03/09/2024 Transportation Needs Answer Date Record ed READ ONLY Do you have troubl e getting a ride to medical visits or work? Often True 03/09/2024 Does your family have a hard time getting a ride to doctors visits? (Household - for ages 0-17 years) Not on file 03/09/2024 Has lack of transportation k ept you from medical appointments, meetings, work, or from getting things needed for daily living? Check all that apply. No 03/09/2024 Do you (or your family) have trouble finding or paying for a ride (transportation)? (Household - for ages 0-17 years) Not on file 03/09/2024 Housing Stability Answer Date Recorded Do you currently live in a s helter or have no steady place to sleep at night? No 03/09/2024 READ ONLY Do you think you a re at risk of becoming homeless? No 03/09/2024 Does your family worry about paying for your home or becoming homeless? (Household - for ages 0-17 years) Not on file 0 03/09/2024 Are you homeless or worried that you might be in the future? No 03/09/2024 Are you (or your family) michelle eless or worried that you might be in the future? (Household - for ages 0-17 years) Not on file Food Insecurity Answer Date Recorded Do you need food for this week? No 03/09/2024 Are you able to get enough f ood for your family? (Household - for ages 0-17 years) Not on file 03/09/2024 Does your family need food t his week? (Household - for ages 0-17 years) Not on file 03/09/2024 Do you always have enough fo od for your family? 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 Not on file Not on file disability Not on file Not on file Not on file documented as of this encounter Plan of Treatment Upcoming Encounters Date Type Department Care Team (Latest Contact Info) Description 07/17/2024 12:20 PM EST [facility] [address] [phone] Patti Posadas MD [address] [id number] 07/28/2024 10:00 AM EST Office Visit Card[facility], [facility] [address] [facility] [id number] He Lepe DO [address] [place] [address] 10/23/2024 2:40 PM EDT Office Visit Nephrology, [facility] [address] [facility] [place], [place] [address] Dre Felix MD [address] [facility] [place] [address] 12/14/2024 11:45 AM EDT Hospital Encounter ENDO [facility], Endoscopy Room [facility] [address] [facility] [place] [phone] Anais Price MD [address] [address] 12/14/2024 11:45 AM EDT - 12/14/2024 12:15 PM EDT Surgery ENDO [facility], Endoscopy Room [facility] [place] [phone] Anais Price MD [address] [place] [phone] COLONOSCOPY FLEXIBLE PROXIMAL DIAGNOSTIC Scheduled Procedures Name Priority Associated Diagnoses Date/Ti me COLONOSCOPY FLEXIBLE PROXIMAL DIAGNOSTIC Recall History of colon polyps 12/14/2024 11:45 AM EDT Health Maintenance Due Date Last Done Comments Alpha-1 Antitrypsin 12/20/1967 Fecal Occult Blood Test 1994 Sigmoidoscopy 1994 Adult Wellness Visit 03/26/2018 03/26/2017 Colonoscopy 01/28/2023 01/28/2018, 01/15, 10/13/2013, Additional history exists Mammogram 02/06/2023 02/06/2022, 01/16, 01/24/2022, Additional history exists B-12 03/04/2024 03/04/2023, 08/15, 02/22/2021, Additional history exists Colorectal Cancer Screening 03/21/2024 Albumin/Creatinine Ratio 06/11/2024 023, 08/28/2022, 08/14/2021, Additional history exists Diabetic Eye Exam 06/11/2024 06/11/2023, , 08/08/2021, Additional history exists Depression Monitoring 06/25/2024 06/25/2023 HbA1c 06/26/2024 12/25/2023, 07/19, 03/04/2023, Additional history exists GFR 12/05/2024 06/06/2024, 12/2023, 12/25/2023, Additional history exists TSH 12/24/2024 12/25/2023, 02/15, 08/28/2022, Additional history exists Diabetic Foot Exam 03/09/2025 03/09/2024, 0 03/04/2023, 02/07/2021, Additional history exists CKD HGB USE SMARTSET 56336 03/23/202503/23, 03/23/2024, 12/25/2023, Additional history exists CKD PHOS USE SMARTSET 47290 03/23/20250 12/2023, 08/12/2023, 03/12/2022, Additional history exists O2 ASSESSMENT COMPLETED IN PAST YEAR FOR COPD 05/05/2025 05/05/2024 Cologuard 03/20/2027 03/20/2024, 05/13/2017 Lipid Panel 06/11/2028 06/11/2023, 02/16, 02/22/2021, Additional history exists DTap/Tdap Vaccines (4 - Td or Tdap) 08/31/2030 08/31/2020, 05/19/2010, 07/20/2003 Hepatitis C Screening Completed 11/15/2014 RETIRED - COLONOSCOPY-EVERY 5 YRS AGES 18-100 Discontinued 01/28/2018, 01/28/2018, 10/13/2013, Additional history exists Lung Cancer Screening Completed 09/26/2021 , 09/20/2020, 09/18/2017 (Declined) Pneumococcal Vaccine: 50+ Years Completed 06/22/2023, 08/27/2016, 08/16/2014, Additional history exists COVID-19 Vaccine Completed 03/09/2024, , 08/10/2020, Additional history exists Influenza Vaccine (FLU shot) Completed 03/09/2024, 02/23/2023, 02/23/2022, Additional history exists DXA Scan Discontinued HPV [...] filedocumented as of this encounter Care Teams Expediter Service Order Relationship Specialty Start Date End Date Patti Posadas MD PCP - General Internal Medicine 01/18/22 documented as of this encounter
[2024-07-08 17:04] LABS: Lipase 23 U/L (11-82)
[2024-07-08] MEDS: SODIUM CHLORIDE 0.9% 500 ML IV ONE (18:32)
--- NOTE | 2024-07-08 18:37 | Emergency Department Note ---
Impression & Plan Acute UTI (urinary tract infection), Hypotensive episode, Nausea, Elevated LFTs ED Provider Note NAME: WILNER KENNEYD AGE: 73 SEX: Female INFORMANT: Patient and caregiver ED PROVIDER(S): Srikanth Camarillo MD CHIEF COMPLAINT: Nausea and urinary symptoms PLAN: Disposition: Admitted Outpatient prescription management: none Referral: None MEDICAL DECISION MAKING: Patient presented was evaluated. She did have some abdominal tenderness in the suprapubic region. Zimmerman catheter was placed to measure urine output and obtain a clean sample. Despite her current antibiotic use her urine appeared concerning and culture was sent. Patient was hydrated and given IV Zofran. In light of the CT showing possible cystitis, the urinalysis and her history the patient was given IV cefepime. Patient had no issues with this. Patient's blood pressure has been labile and her caregiver nurse noted this was an issue for the patient recently. She does have an unremarkable CBC and chemistry panel. Patient does have an elevated procalcitonin. In light of her symptoms, weakness and findings on testing further management in the hospital was felt to be appropriate. Consultation was made with the [facility]. Patient was evaluated in the ER admitted for further management. Care/management discussed with: software configuration manager Level of care consideration(s): After review of the information above and other included data, I feel the patient requires escalation of care to admission Triage Nursing notes: reviewed and agree them. Vital Signs: reviewed and remarkable for transient hypotension Additional History obtained from: Patient's caregiver nurse. She helps with history and patient's current care. Chronic Medical/Social Conditions affecting care: Diabetes, hypertension Prior/ Outside/ External records reviewed: none Differential Diagnosis: Infection, dehydration, metabolic abnormality, hypo/hyperglycemia, electrolyte disturbance, anemia, hypoxia, cardiac sources, intracerebral event, toxicologic, neurologic, as well as other pathologies. Diagnostics, independently interpreted by me: ECG: Twelve-lead ECG reveals normal sinus rhythm at 75 beats per minute. No evidence of pericarditis, ischemia, ectopy, or dysrhythmia. Cardiac Monitoring: Cardiac monitoring ordered by me: The patient was placed on continuous cardiac monitoring and observed. It revealed a normal sinus rhythm at 80 beats per minute without ectopy or evidence of dysrhythmia. Medical decision rules: none Imaging studies: CT scan of the abdomen pelvis reveals cystitis. I refer you to the EMR for further details. HPI: 73 year old Female arrives for evaluation of illness. This been going on for a few days. Patient notes nausea and urinary symptoms. Recently was treated by urology and did have antibiotics administered. Patient was feeling worse today with increased weakness, feeling feverish, and lightheadedness. Denies any known sick contacts. Currently patient has no pain. Pt denies LOC, headache, diaphoresis, visual changes, neck pain, chest pain, breathing difficulties, vomiting, abdominal pain, back pain, melena, hematochezia, numbness, lymphadenopathy, rash, or other complaints.. PAST MEDICAL HISTORY: See Below, hypertension, CKD PAST SURGICAL HISTORY: See Below, SOCIAL HISTORY: See Below, former smoker HOME MEDICATIONS: See Below ALLERGIES: See Below VITALS: See Below PHYSICAL EXAMINATION: GENERAL: Awake, alert, uncomfortable-appearing, in no distress HENT: Normocephalic, atraumatic. Oropharynx unremarkable. EYES: Normal conjunctiva. Sclera non-icteric. NECK: Inspection normal. Non-tender. Supple. No nuchal rigidity. FROM. No masses. RESPIRATORY: Clear to auscultation. No wheezes. No rales. Normal respiratory effort. CARDIAC: Normal rate. Normal rhythm. No murmurs. No rubs. Extremities warm and well perfused. Pulses equal. No JVD. GI: Soft, non-distended. Mild suprapubic tenderness to palpation. No rebound or guarding. No masses. RECTAL: Deferred. MUSCULOSKELETAL: Atraumatic. Chest examination reveals no tenderness. There is no CVA tenderness to palpation. No joint edema. LOWER EXTREMITIES: Calves are equal size bilaterally and non-tender. 1+ edema. No discoloration. NEURO: Normal sensorium. No sensory or motor deficits noted. SKIN: No rash or jaundice noted. PROCEDURES: none CRITICAL CARE: none OBSERVATION NOTE: none Past Med/Surg History Problem List Elevated LFTs (Acute) Nausea (Acute) Acute UTI (urinary tract infection) (Acute) Bladder tumor Syncope Dizziness (Acute) Hypomagnesemia (Acute) Orthostatic hypotension (Acute) Symptomatic hypotension Dizziness (Acute) Neuroforaminal stenosis of lumbar spine Protrusion of lumbar intervertebral disc Labile blood pressure Acid reflux well controlled ADRI (obstructive sleep apnea) Hypomagnesemia (Acute) Failure of outpatient treatment (Acute) Headache (Acute) Hypertension (Acute) Hypomagnesemia CKD (chronic kidney disease), stage III Hypertensive urgency ADI (acute kidney injury) (Acute) Slurred speech (Acute) Acute dehydration (Acute) Acute hypotension (Acute) Protrusion of intervertebral disc of thoracic region Degenerative spondylolisthesis Lumbar stenosis with neurogenic claudication Cervical pain Greater trochanteric bursitis of left hip History of heart attack 1996- medically managed Hypotensive episode (Acute) Diabetes mellitus, type II COPD (chronic obstructive pulmonary disease) Dyslipidemia Nocturnal hypoxemia 2L O2 HS Hypertension Hypothyroidism Anxiety and depression History of total left hip arthroplasty (~11/2019) Medical History Obesity Fatty liver Arthritis Degenerative disc disease Sciatica Thyroid enlarged no dysphagia Asthma mild, "well controlled and stable", rare inhaler use Surgical History History of colonoscopy History of left cataract surgery History of right cataract surgery History of right hip replacement History of hysterectomy History of hernia repair History of cardiac cath FOLLOWING HEART ATTACK, NO FINDINGS 1996 Family History Mother Family history of diabetes mellitus Aunt Family history of diabetes mellitus Son Family history of colon cancer Social History Smoking Status: Former smoker Tobacco Type: Cigarettes Second Hand Exposure: No; Do You Dip or Chew Tobacco: No; Hx Alcohol Use: No Hx Substance Use: No Preferred Language: Spanish Communication Ability: Effective Visual Impairment: No Limitations Hearing Ability: Normal Nail Machine Operator Required: No Beliefs That Will Affect Care: None Current Living Situation: Alone Current Living Situation Comment: caregiver somedays current occupational status: retired Feels Safe at Home: Yes Safety Concerns Comment: office of aging is visiting her tomorrow regarding getting more help @ home Assistive Devices: CPAP, Nebulizer, Oxygen - at Night, Raised Toilet Seat and Walker Allergies Allergies Allergy/AdvReac Type Severity Reaction Status Date / Time Sulfa (Sulfonamide Allergy Severe face Verified 06/24/24 10:39 Antibiotics) tongue lips swelling,HEADACHE amoxicillin AdvReac Intermediate YEAST Verified 06/24/24 10:39 INFECTION clavulanic acid AdvReac Intermediate YEAST Verified 06/24/24 10:39 INFECTION codeine AdvReac Intermediate N/V Verified 06/24/24 10:39 Home Meds Home Medications Medication Instructions Recorded Confirmed albuterol sulfate 2.5 mg/3 mL 2.5 mg continuous nebulization Q4H 02/17/24 07/08/24 (0.083 %) solution for nebulization PRN Shortness Of Breath Or Wheezing albuterol sulfate 90 mcg/actuation 2 puff inhalation Q6H PRN 02/17/24 07/08/24 aerosol inhaler (Ventolin HFA) Shortness Of Breath Or Wheezing ascorbic acid (vitamin C) 1,000 mg 1,000 mg PO DAILY 02/17/24 07/08/24 tablet aspirin 81 mg tablet,delayed 81 mg PO DAILY 02/17/24 07/08/24 release atorvastatin 10 mg tablet 10 mg PO HS 02/17/24 07/08/24 carvedilol 6.25 mg tablet 6.25 mg PO BID 02/17/24 07/08/24 cetirizine 10 mg tablet (Allergy 10 mg PO DAILY 02/17/24 07/08/24 Relief (cetirizine)) citalopram 20 mg tablet 20 mg PO DAILY 02/17/24 07/08/24 doxepin 25 mg capsule 25 mg PO HS 02/17/24 07/08/24 famotidine 20 mg tablet 20 mg PO BID 02/17/24 07/08/24 fluticasone 250 mcg-salmeterol 50 1 inh inhalation BID 02/17/24 07/08/24 mcg/dose blistr powdr for inhalation fluticasone propionate 50 2 spray intranasal DAILY 02/17/24 07/08/24 mcg/actuation nasal spray,suspension hydroxyzine HCl 25 mg tablet 25 mg PO BID PRN Anxiety 02/17/24 07/08/24 levothyroxine 125 mcg tablet 125 mcg PO DAILY 02/17/24 07/08/24 metformin 500 mg tablet 500 mg PO BID 02/17/24 07/08/24 mirtazapine 30 mg tablet 30 mg PO HS 02/17/24 07/08/24 montelukast 10 mg tablet 10 mg PO DAILY 02/17/24 07/08/24 tizanidine 4 mg tablet 4 mg PO TID PRN muscle spasms 02/17/24 07/08/24 vitamin B complex 1 cap PO DAILY 02/17/24 07/08/24 diclofenac sodium 1 % topical gel 2 g topical QID 03/04/24 07/08/24 (Arthritis Pain (diclofenac)) lorazepam 0.5 mg tablet 0.5 mg PO DAILY PRN ANXIETY 03/04/24 07/08/24 omega-3 300 mg-dha 120 mg-epa 180 1 cap PO DIRECTED 03/04/24 07/08/24 mg-fish oil 1,000 mg capsule perphenazine 2 mg tablet 2 mg PO DAILY 03/04/24 07/08/24 triamcinolone acetonide 0.5 % 1 applic topical DIRECTED 03/04/24 07/08/24 topical cream turmeric 450 mg-turmeric root 1 cap PO DIRECTED 03/04/24 07/08/24 extract 50 mg capsule vitamin E (dl, acetate) 180 mg 180 mg PO DAILY 03/04/24 07/08/24 (400 unit) capsule citalopram 10 mg tablet (Celexa) 10 mg PO DAILY 06/06/24 07/08/24 garlic 1,000 mg capsule 1,000 mg PO UD 06/06/24 07/08/24 Previous Rx's Medication Instructions Recorded midodrine 2.5 mg tablet 2.5 mg PO UD PRN Hypotension #0 02/19/24 tabs nifedipine 30 mg tablet,extended 30 mg PO 1200 #0 tabs 02/19/24 release phenazopyridine 100 mg tablet 100 mg PO TID PRN pain #15 tabs 06/06/24 (Pyridium) Results & Data (ED) Vital Signs Vital Signs - 24 hr 07/08/24 11:28 07/08/24 11:28 07/08/24 11:30 Temperature 36.8 C Temperature Source Oral Pulse Rate 74 Pulse Rate [Apical] Pulse Rate from SpO2 Sensor Respiratory Rate 18 Respiratory Effort / Characteristics Respiratory Depth Respiratory Pattern Blood Pressure 115/68 97/59 L Blood Pressure [Left Arm] Blood Pressure Mean 83 71 Blood Pressure Mean [Left Arm] Pulse Oximetry 95 Oxygen Delivery Method Room Air Room Air Sepsis New/Unexplained Change in Mental Status No Sepsis Action Taken by Nursing No Action Required 07/08/24 11:33 07/08/24 11:57 07/08/24 12:00 Temperature Temperature Source Pulse Rate 75 74 Pulse Rate [Apical] Pulse Rate from SpO2 Sensor 75 Respiratory Rate 23 19 Respiratory Effort / Characteristics Respiratory Depth Respiratory Pattern Blood Pressure 102/66 Blood Pressure [Left Arm] Blood Pressure Mean 76 Blood Pressure Mean [Left Arm] Pulse Oximetry 96 Oxygen Delivery Method Room Air Sepsis New/Unexplained Change in Mental Status Sepsis Action Taken by Nursing 07/08/24 12:06 07/08/24 12:12 07/08/24 12:34 Temperature Temperature Source Pulse Rate 74 80 Pulse Rate [Apical] Pulse Rate from SpO2 Sensor Respiratory Rate 24 Respiratory Effort / Characteristics Respiratory Depth Respiratory Pattern Blood Pressure Blood Pressure [Left Arm] Blood Pressure Mean Blood Pressure Mean [Left Arm] Pulse Oximetry Oxygen Delivery Method Room Air Sepsis New/Unexplained Change in Mental Status Sepsis Action Taken by Nursing 07/08/24 12:39 07/08/24 13:04 07/08/24 13:04 Temperature Temperature Source Pulse Rate 75 Pulse Rate [Apical] Pulse Rate from SpO2 Sensor Respiratory Rate 21 Respiratory Effort / Characteristics Respiratory Depth Respiratory Pattern Blood Pressure 99/56 L 99/56 L Blood Pressure [Left Arm] Blood Pressure Mean 62 62 Blood Pressure Mean [Left Arm] Pulse Oximetry 94 Oxygen Delivery Method Sepsis New/Unexplained Change in Mental Status Sepsis Action Taken by Nursing 07/08/24 13:12 07/08/24 13:34 07/08/24 13:36 Temperature Temperature Source Pulse Rate 74 73 Pulse Rate [Apical] Pulse Rate from SpO2 Sensor 74 73 Respiratory Rate 19 22 Respiratory Effort / Characteristics Respiratory Depth Respiratory Pattern Blood Pressure 80/63 L Blood Pressure [Left Arm] Blood Pressure Mean 67 Blood Pressure Mean [Left Arm] Pulse Oximetry 92 93 Oxygen Delivery Method Sepsis New/Unexplained Change in Mental Status Sepsis Action Taken by Nursing 07/08/24 13:59 07/08/24 14:00 07/08/24 14:14 Temperature Temperature Source Pulse Rate 72 76 Pulse Rate [Apical] Pulse Rate from SpO2 Sensor 72 76 Respiratory Rate 19 22 Respiratory Effort / Characteristics Respiratory Depth Respiratory Pattern Blood Pressure 88/57 L Blood Pressure [Left Arm] Blood Pressure Mean 63 Blood Pressure Mean [Left Arm] Pulse Oximetry 95 93 Oxygen Delivery Method Room Air Room Air Sepsis New/Unexplained Change in Mental Status Sepsis Action Taken by Nursing 07/08/24 14:38 07/08/24 14:59 07/08/24 15:00 Temperature Temperature Source Pulse Rate 74 75 Pulse Rate [Apical] Pulse Rate from SpO2 Sensor 75 75 Respiratory Rate 17 24 Respiratory Effort / Characteristics Respiratory Depth Respiratory Pattern Blood Pressure 105/61 Blood Pressure [Left Arm] Blood Pressure Mean 69 Blood Pressure Mean [Left Arm] Pulse Oximetry 95 95 Oxygen Delivery Method Room Air Room Air Sepsis New/Unexplained Change in Mental Status Sepsis Action Taken by Nursing 07/08/24 15:02 07/08/24 15:30 07/08/24 16:24 Temperature Temperature Source Pulse Rate 75 75 Pulse Rate [Apical] 75 Pulse Rate from SpO2 Sensor 74 Respiratory Rate 18 18 Respiratory Effort / Characteristics Non-Labored Spontaneous Respiratory Depth Normal Respiratory Pattern Regular Blood Pressure Blood Pressure [Left Arm] 99/61 L Blood Pressure Mean Blood Pressure Mean [Left Arm] 73 Pulse Oximetry 93 96 Oxygen Delivery Method Room Air Room Air Sepsis New/Unexplained Change in Mental Status Sepsis Action Taken by Nursing 07/08/24 17:00 Temperature Temperature Source Pulse Rate Pulse Rate [Apical] 78 Pulse Rate from SpO2 Sensor Respiratory Rate 18 Respiratory Effort / Characteristics Non-Labored Spontaneous Respiratory Depth Normal Respiratory Pattern Regular Blood Pressure Blood Pressure [Left Arm] 91/57 L Blood Pressure Mean Blood Pressure Mean [Left Arm] 68 Pulse Oximetry 94 Oxygen Delivery Method Room Air Sepsis New/Unexplained Change in Mental Status Sepsis Action Taken by Nursing Laboratory Data 07/08/24 11:34 07/08/24 11:34 Lab Results 07/08/24 07/08/24 07/08/24 Range/Units 11:34 11:57 12:00 WBC 10.06 (4.8-10.8) K/ul RBC 4.17 L (4.20-5.40) M/uL Hgb 12.4 (12.0-16.0) g/dl Hct 35.7 L (37.0-47.0) % MCV 85.6 (80.0-100.0) fL MCH 29.7 (25.0-34.0) pg MCHC 34.7 (32.0-36.0) g/dL RDW Std Deviation 42.7 (36.4-46.3) fL RDW Coeff of Jennifer 13.6 (11.5-14.5) % Plt Count 218 (130-400) K/uL MPV 11.4 (9.4-12.4) fL Immature Gran % (Auto) 0.5 % Neut % (Auto) 84.9 % Lymph % (Auto) 4.7 % Pennington % (Auto) 4.0 % Eos % (Auto) 5.7 % Baso % (Auto) 0.2 % Neut # (Auto) 8.55 H (1.40-6.50) K/uL Lymph # (Auto) 0.47 L (1.20-3.40) K/uL Penning[place] # (Auto) 0.40 (0.11-0.59) K/uL Eos # (Auto) 0.57 H (0.00-0.50) K/uL Baso # (Auto) 0.02 (0.00-0.20) K/uL Immature Gran # (Auto) 0.05 (0.01-0.20) K/uL PT 11.3 (9.0-12.0) Seconds INR 1.0 (0.9-1.1) APTT 27 (21-31) Seconds PTT Ratio 1.0 Sodium 131 L (136-145) mmol/L Potassium 3.8 (3.5-5.1) mmol/L Chloride 95 L (98-107) mmol/L Carbon Dioxide 26 (21-32) mmol/L Anion Gap 10 (3-11) BUN 21 (6-23) mg/dl Creatinine 1.47 H (0.6-1.2) mg/dl Est Cr Clr Drug Dosing Not Reportable eGFR 37.23 BUN/Creatinine Ratio 14.3 (10-20) Glucose 126 H (70-99(Fasting)) mg/dl Lactate 1.6 (0.4-2.0) mmol/L Calcium 8.7 (8.6-10.3) mg/dl Magnesium 1.6 L (1.7-2.4) mg/dl Total Bilirubin 1.5 H (0.2-1.0) mg/dl Direct Bilirubin 0.7 H (0-0.2) mg/dl AST 187 H (13-39) U/L ALT 201 H (7-52) U/L Alkaline Phosphatase 135 H (34-104) U/L Troponin I High Sens 5.2 (0-14) pg/ml Total Protein 6.5 (6.0-8.3) gm/dl Albumin 3.6 (3.4-5.0) gm/dl Lipase 23 (11-82) U/L Procalcitonin 4.58 H (0-0.5) ng/ml Urine Color Urine Appearance (Clear) Urine pH (4.5-7.5) Ur Specific Ponce (1.000-1.030) Urine Protein (Negative) Urine Glucose (UA) (Negative) Urine Ketones (Negative) Urine Blood (Negative) Urine Nitrite (Negative) Urine Bilirubin (Negative) Urine Urobilinogen (Negative) Ur Leukocyte Esterase (Negative) Urine WBC (Auto) (0-5) /hpf Urine RBC (Auto) (0-2) /hpf U Hyaline Cast (Auto) (0-2) /lpf U Epithel Cells (Auto) (0-2) /hpf Urine Bacteria (Auto) (None Seen) Urine Mucus (None Prsent) Adenovirus (PCR) Not Detected (NotDetected) B. pertussis DNA (PCR) Not Detected (NotDetected) B.parapertussis DNA PCR Not Detected (NotDetected) C. pneumoniae DNA (PCR) Not Detected (NotDetected) Coronavirus OC43 (PCR) Not Detected (NotDetected) Coronavirus HKU1 (PCR) Not Detected (NotDetected) Coronavirus 229E (PCR) Not Detected (NotDetected) SARS-CoV-2 (PCR) Not Detected (NotDetected) Coronavirus NL63 (PCR) Not Detected (NotDetected) Human Metapneumovir PCR Not Detected (NotDetected) Influenza Type A (PCR) Not Detected (NotDetected) Influenza Type B (PCR) Not Detected (NotDetected) M. pneumoniae (PCR) Not Detected (NotDetected) Parainfluenza 1 (PCR) Not Detected (NotDetected) Parainfluenza 2 (PCR) Not Detected (NotDetected) Parainfluenza 3 (PCR) Not Detected (NotDetected) Parainfluenza 4 (PCR) Not Detected (NotDetected) RSV (PCR) Not Detected (NotDetected) Entero/Rhino (PCR) Not Detected (NotDetected) 07/08/24 Range/Units 12:31 WBC (4.8-10.8) K/ul RBC (4.20-5.40) M/uL Hgb (12.0-16.0) g/dl Hct (37.0-47.0) % MCV (80.0-100.0) fL MCH (25.0-34.0) pg MCHC (32.0-36.0) g/dL RDW Std Deviation (36.4-46.3) fL RDW Coeff of Jennifer (11.5-14.5) % Plt Count (130-400) K/uL MPV (9.4-12.4) fL Immature Gran % (Auto) % Neut % (Auto) % Lymph % (Auto) % Pennington % (Auto) % Eos % (Auto) % Baso % (Auto) % Neut # (Auto) (1.40-6.50) K/uL Lymph # (Auto) (1.20-3.40) K/uL Pennington # (Auto) (0.11-0.59) K/uL Eos # (Auto) (0.00-0.50) K/uL Baso # (Auto) (0.00-0.20) K/uL Immature Gran # (Auto) (0.01-0.20) K/uL PT (9.0-12.0) Seconds INR (0.9-1.1) APTT (21-31) Seconds PTT Ratio Sodium (136-145) mmol/L Potassium (3.5-5.1) mmol/L Chloride (98-107) mmol/L Carbon Dioxide (21-32) mmol/L Anion Gap (3-11) BUN (6-23) mg/dl Creatinine (0.6-1.2) mg/dl Est Cr Clr Drug Dosing eGFR BUN/Creatinine Ratio (10-20) Glucose (70-99(Fasting)) mg/dl Lactate (0.4-2.0) mmol/L Calcium (8.6-10.3) mg/dl Magnesium (1.7-2.4) mg/dl Total Bilirubin (0.2-1.0) mg/dl Direct Bilirubin (0-0.2) mg/dl AST (13-39) U/L ALT (7-52) U/L Alkaline Phosphatase (34-104) U/L Troponin I High Sens (0-14) pg/ml Total Protein (6.0-8.3) gm/dl Albumin (3.4-5.0) gm/dl Lipase (11-82) U/L Procalcitonin (0-0.5) ng/ml Urine Color Dark Yellow Urine Appearance Cloudy A (Clear) Urine pH 5.5 (4.5-7.5) Ur Specific Ponce 1.018 (1.000-1.030) Urine Protein 1+ H (Negative) Urine Glucose (UA) Negative (Negative) Urine Ketones Trace H (Negative) Urine Blood Negative (Negative) Urine Nitrite Negative (Negative) Urine Bilirubin 1+ H (Negative) Urine Urobilinogen Negative (Negative) Ur Leukocyte Esterase 1+ H (Negative) Urine WBC (Auto) 6-10 H (0-5) /hpf Urine RBC (Auto) 3-5 H (0-2) /hpf U Hyaline Cast (Auto) >20 H (0-2) /lpf U Epithel Cells (Auto) 11-20 H (0-2) /hpf Urine Bacteria (Auto) None Seen (None Seen) Urine Mucus Present A (None Prsent) Adenovirus (PCR) (NotDetected) B. pertussis DNA (PCR) (NotDetected) B.parapertussis DNA PCR (NotDetected) C. pneumoniae DNA (PCR) (NotDetected) Coronavirus OC43 (PCR) (NotDetected) Coronavirus HKU1 (PCR) (NotDetected) Coronavirus 229E (PCR) (NotDetected) SARS-CoV-2 (PCR) (NotDetected) Coronavirus NL63 (PCR) (NotDetected) Human Metapneumovir PCR (NotDetected) Influenza Type A (PCR) (NotDetected) Influenza Type B (PCR) (NotDetected) M. pneumoniae (PCR) (NotDetected) Parainfluenza 1 (PCR) (NotDetected) Parainfluenza 2 (PCR) (NotDetected) Parainfluenza 3 (PCR) (NotDetected) Parainfluenza 4 (PCR) (NotDetected) RSV (PCR) (NotDetected) Entero/Rhino (PCR) (NotDetected) Administered Medications Discontinued Medications Sodium Chloride (Nss) 1,000 mls @ 999 mls/hr IV .Q1H1M EROS Stop: 07/08/24 12:45 Last Infusion: 07/08/24 14:52 Dose: Infused Documented By: Admin: 07/08/24 11:58 Dose: 999 mls/hr Documented By: GAYATRI Acetaminophen (Ofirmev) 1,000 mg in 100 mls @ 400 mls/hr IV NOW STA Stop: 07/08/24 12:41 Last Infusion: 07/08/24 12:56 Dose: Infused Documented By: Admin: 07/08/24 12:41 Dose: 400 mls/hr Documented By: MYRNA Sodium Chloride (Nss) 1,000 mls @ 999 mls/hr IV .Q1H1M ONE Stop: 07/08/24 14:40 Last Infusion: 07/08/24 15:53 Dose: Infused Documented By: Admin: 07/08/24 14:52 Dose: 999 mls/hr Documented By: GAYATRI Cefepime HCl (Maxipime 2000mg) 2,000 mg in 20 mls @ 5 mls/min IV NOW STA; Protocol Stop: 07/08/24 13:43 Last Admin: 07/08/24 14:02 Dose: 5 mls/min Documented By: MYRNA Ondansetron HCl (Ondansetron Inj 2 Mg/Ml 2 Ml Vial) 4 mg IV NOW STA Stop: 07/08/24 12:28 Last Admin: 07/08/24 12:40 Dose: 4 mg Documented By: MYRNA Ondansetron HCl (Ondansetron Inj 2 Mg/Ml 2 Ml Vial) 4 mg IV NOW STA Stop: 07/08/24 15:52 Last Admin: 07/08/24 16:07 Dose: 4 mg Documented By: QUE Imaging Data Radiologist's Impression: Chest X-Ray 07/08/24 11:45 XR chest 1V portable CLINICAL HISTORY: Sepsis. COMPARISON STUDY: Chest radiograph March 19, 2024. Chest CT December 09, 2013. FINDINGS: Lung volumes are normal. Lungs are clear. There is no pneumothorax or pleural effusion. Cardiac size is at the upper limits of normal. Mediastinal contours are normal. There is no evidence for pulmonary edema. Subtle interstitial thickening is likely chronic. IMPRESSION: No acute cardiopulmonary findings. No significant change in appearance of the chest. ACT 112: Negative or not required by law. Electronically signed by: Vinny Dobbins M.D. 07/08/2024 12:38 PM Abdomen/Pelvis CT 07/08/24 12:27 CT abd pelvis wo con CLINICAL HISTORY: abd pain, urinary symptoms, hypotension TECHNIQUE: Helical axial images of the abdomen and pelvis were obtained. Automated dose lowering techniques and/or adjustment according to patient size were utilized for this exam. This exam was performed without intravenous contrast. CT DOSE: 1324.46 mGy.cm COMPARISON: Comparison is made to CT abdomen pelvis 06/06/2024 FINDINGS: Lower chest: Mitral annular calcification is seen. Peripheral interstitial thickening is seen in the lungs. Liver: Hepatic steatosis is noted. Calcifications are seen in the liver which may represent prior granulomatous disease. Gallbladder and biliary tree: No calcified gallstones. Normal caliber wall. No intra- or extrahepatic biliary ductal dilation. Pancreas: Unremarkable, no focal lesions. Spleen: Unremarkable. Adrenals: Unremarkable. Kidneys and ureters: Unremarkable. Bladder: A Zimmerman catheter is seen. There is thickening of the bladder wall. Reproductive organs: Patient is status post hysterectomy. Bowel: Diverticulosis is seen without evidence of diverticulitis. Lymph nodes Retroperitoneal: Unremarkable. Pelvic: Unremarkable. Mesenteric: Unremarkable. Peritoneum: Normal. Vessels: Atherosclerotic calcifications are seen. Abdominal wall: Unremarkable. Bones: Degenerative changes in the visualized spine. Bilateral hip arthroplasties noted. IMPRESSION: 1. Bladder wall thickening is seen which may represent cystitis or simply be a result of underdistention. Otherwise no acute abnormalities are seen. 2. Diverticulosis without diverticulitis. 3. Hepatic steatosis. ACT 112: Negative or not required by law. Electronically signed by: Yariel Aparicio M.D. 07/08/2024 1:12 PM Gallbladder Ultrasound 07/08/24 13:41 US gallbladder CLINICAL HISTORY: elevated LFTs, sepsis, hypotension COMPARISON STUDY: 09/22/[address] of 07/08/2024. FINDINGS: Pancreatic tail is obscured. There is dilatation of the pancreatic duct measuring up to 6 mm diameter. Visualized pancreatic body is otherwise unremarkable. Liver measures 23 cm. There is normal direction of flow in the portal vein. Liver demonstrates diffusely increased heterogeneous echotexture. No focal liver abnormality seen. Gallbladder is unremarkable with no gallstones or gallbladder wall thickening. No pericholecystic fluid or ascites. Right kidney shows no hydronephrosis. Common bile duct measures normal diameter of 5 mm. IMPRESSION: 1. Fatty liver. 2. No gallstones or evidence of acute cholecystitis seen. 3. Dilated pancreatic duct with no gross mass seen by ultrasound. Consider follow-up CT with IV contrast with pancreatic protocol. ACT 112: Negative or not required by law. Electronically signed by: Isma Shields M.D. 07/08/2024 2:57 PM Discharge Plan Visit Data Chief Complaint: Illness Stated Complaint: HYPOTENSION ED Provider: Srikanth Camar[place] Discharge Problem: Acute UTI (urinary tract infection), Hypotensive episode, Nausea, Elevated LFTs Patient Disposition: Admitted As Inpatient Discharge Instructions Interventions: ED Discharge Assessment Last Done: 07/08/24 18:16 Prescriptions Prescriptions: No Action perphenazine 2 mg tablet 2 mg PO DAILY triamcinolone acetonide 0.5 % cream 1 applic topical DIRECTED lorazepam 0.5 mg tablet 0.5 mg PO DAILY PRN (Reason: ANXIETY ) diclofenac sodium [Arthritis Pain (diclofenac)] 1 % gel 2 g topical QID Rx Instructions: apply to single elbow, wrist or hand; for hand includes palm/fingers/back of hand vitamin E (dl, acetate) 180 mg (400 unit) capsule 180 mg PO DAILY turmeric-turmeric root extract 450-50 mg capsule 1 cap PO DIRECTED omega 7-lso-bvr-fish oil 300 mg (120 mg- 180mg)-1,000 mg capsule 1 cap PO DIRECTED citalopram [Celexa] 10 mg tablet 10 mg PO DAILY Rx Instructions: 10 mg po qam. Both 10 mg and 20 mg celexa were filled 05/25 28 day supply garlic 1,000 mg Capsule 1,000 mg PO UD Rx Instructions: 1000 mg po qam, filled 05/25 28 day supply phenazopyridine [Pyridium] 100 mg tablet 100 mg PO TID PRN (Reason: pain) Qty: 15 0RF metformin 500 mg tablet 500 mg PO BID fluticasone propion-salmeterol 250-50 mcg/dose blister with device 1 inh INHALATION BID carvedilol 6.25 mg tablet 6.25 mg PO BID albuterol sulfate 2.5 mg /3 mL (0.083 %) solution for nebulization 2.5 mg continuous nebulization Q4H PRN (Reason: Shortness Of Breath Or Wheezing) atorvastatin 10 mg tablet 10 mg PO HS tizanidine 4 mg tablet 4 mg PO TID PRN (Reason: muscle spasms) aspirin 81 mg tablet,delayed release (DR/EC) 81 mg PO DAILY famotidine 20 mg tablet 20 mg PO BID mirtazapine 30 mg tablet 30 mg PO HS levothyroxine 125 mcg tablet 125 mcg PO DAILY montelukast 10 mg tablet 10 mg PO DAILY fluticasone propionate 50 mcg/actuation spray,suspension 2 spray INTRANASAL DAILY vitamin B complex Capsule 1 cap PO DAILY ascorbic acid (vitamin C) 1,000 mg tablet 1,000 mg PO DAILY cetirizine [Allergy Relief (cetirizine)] 10 mg tablet 10 mg PO DAILY doxepin 25 mg capsule 25 mg PO HS citalopram 20 mg tablet 20 mg PO DAILY Rx Instructions: 20 mg po daily. Both 10 and 20 mg doses were filled 05/25 28 day supply hydroxyzine HCl 25 mg tablet 25 mg PO BID PRN (Reason: Anxiety) albuterol sulfate [Ventolin HFA] 90 mcg/actuation HFA aerosol inhaler 2 puff INHALATION Q6H PRN (Reason: Shortness Of Breath Or Wheezing) nifedipine 30 mg tablet extended release 30 mg PO 1200 Qty: 0 0RF midodrine 2.5 mg tablet 2.5 mg PO UD PRN (Reason: Hypotension) Qty: 0 0RF Rx Instructions: Every 8 hours PRN SBP <100 mmHg.
[2024-07-08] MEDS: MAGNESIUM SULFATE / D5W 1 GM/100 ML BAG IV STA (19:00)
[2024-07-08] MEDS: MIDODRINE HCL 2.5 MG TAB PO ONE (19:01)
[2024-07-08 19:08] LABS: Creatine Kinase 31 U/L (26-192)
[2024-07-08] MEDS ORDERED: ONDANSETRON INJ 2 MG/ML 2 ML VIAL IV PRN (19:08)
[2024-07-08] MEDS ORDERED: ACETAMINOPHEN 325 MG TAB PO PRN (19:08)
[2024-07-08] MEDS ORDERED: POLYETHYLENE (MIRALAX) 17 GM PACK PO PRN (19:08)
[2024-07-08] MEDS: 4.5GM X1 IV STA (19:58)
[2024-07-08] MEDS ORDERED: DICLOFENAC SOD 1% GEL 100 GM TUBE EXT PRN (20:09)
[2024-07-08] MEDS ORDERED: ALBUTEROL HFA 8 GM INHALER INH PRN (20:09)
[2024-07-08] MEDS ORDERED: GLUCAGON FOR INJ 1 MG VIAL SQ PRN (20:15)
[2024-07-08] MEDS ORDERED: GLUCOSE 10 TAB/TUBE PO PRN (20:15)
[2024-07-08] MEDS ORDERED: GLUCOSE 40% GEL 15 GM TUBE PO PRN (20:15)
[2024-07-08] MEDS ORDERED: DEXTROSE 50% 50 ML SYRINGE IV PRN (20:15)
[2024-07-08] MEDS ORDERED: CARBOHYDRATES FOR HYPOGLYCEMIA PO PRN (20:15)
[2024-07-08] MEDS: INSULIN ASPART PER UNIT CHARGE SC SCH (22:15)
[2024-07-08] MEDS: ATORVASTATIN 10 MG TAB PO SCH (23:36)
[2024-07-08] MEDS: MIRTAZAPINE TAB 15 MG TAB PO SCH (23:36)
[2024-07-08] MEDS: DOXEPIN HCL 25 MG CAPSULE PO SCH (23:37)
[2024-07-08] MEDS: FAMOTIDINE 20 MG TAB PO SCH (23:37)
[2024-07-08] MEDS: HEPARIN SOD 5,000 UNIT/0.5 ML VIAL SQ SCH (23:38)
[2024-07-08] MEDS: PIPERACILLIN/TAZOBACTAM 4.5 GM/100 ML BAG IV SCH (23:41)
[2024-07-09] MEDS: FLUTICASONE/VILANTEROL 200/25MCG 14 PUFFS/INHALER INH SCH (00:01)
[2024-07-09] MEDS: LEVOTHYROXINE SODIUM 125 MCG TABLET PO SCH (06:39)
[2024-07-09 06:51] LABS: Basophils # (auto) 0.01 K/uL (0.00-0.20); Basophils % (auto) 0.2 %; Eosinophils # (auto) 0.58 K/uL (0.00-0.50); Eosinophils % (auto) 9.9 %; Hematocrit (blood only) 32.6 % (37.0-47.0); Immature Granulocytes # (auto) 0.02 K/uL (0.01-0.20); Immature Granulocytes % (auto) 0.3 %; Lymphocytes # (auto) 0.46 K/uL (1.20-3.40); Lymphocytes % (auto) 7.8 %; Mean Corpuscular Hgb Conc 33.7 g/dL (32.0-36.0); Mean Corpuscular Volume 88.8 fL (80.0-100.0); Mean Platelet Volume 11.7 fL (9.4-12.4); Monocytes # (auto) 0.31 K/uL (0.11-0.59); Monocytes % (auto) 5.3 %; Neutrophils % (auto) 76.5 %; Platelet Count 181 K/uL (130-400); RDW Coefficient of Variation 13.8 % (11.5-14.5); Red Blood Count 3.67 M/uL (4.20-5.40); White Blood Count 5.88 K/ul (4.8-10.8)
[2024-07-09 06:54] LABS: Albumin Globulin Ratio 1.3 (0.9-2); Albumin Level 2.9 gm/dl (3.4-5.0); BUN Creatinine Ratio 14.6 (10-20); Bilirubin,Total 1.1 mg/dl (0.2-1.0); Calcium 8.3 mg/dl (8.6-10.3); Creatinine Clr Calc Pharmacy 42.7 ml/min; Globulin 2.3 gm/dl (2.5-4.0); Magnesium 1.8 mg/dl (1.7-2.4); Potassium 3.7 mmol/L (3.5-5.1); Total Protein 5.2 gm/dl (6.0-8.3)
[2024-07-09 07:24] LABS: Estimated Average Glucose 123 mg/dl; Hemoglobin A1C 5.9 % (4.5-5.6)
[2024-07-09] MEDS: ASPIRIN 81 MG ECTAB PO SCH (08:43)
[2024-07-09] MEDS: ASCORBIC ACID 500 MG TAB PO SCH (08:43)
[2024-07-09] MEDS: PERPHENAZINE 2 MG TAB PO SCH (08:43)
[2024-07-09] MEDS: CETIRIZINE HCL 10 MG TABLET PO SCH (08:43)
[2024-07-09] MEDS: MONTELUKAST SODIUM 10 MG TABLET PO SCH (08:43)
[2024-07-09] MEDS: CITALOPRAM 20 MG TAB PO SCH (08:43)
[2024-07-09] MEDS: FLUTICASONE PROPIONATE NA SPR 16 GM BTL NAE SCH (08:43)
[2024-07-09] MEDS ORDERED: CITALOPRAM 20 MG TAB PO SCH (09:00)
--- NOTE | 2024-07-09 10:30 | Gastrointestinal Consultation ---
Date of Consultation July 09, 2024 Assessment & Plan (1) Elevated LFTs: 73 year old female w/ history ofHTN, dyslipidemia, DM II, CKD III, COPD, depression, anxiety, ADRI, nocturnal hypoxia presented to ER with c/o nausea and fatigue x 5 days after starting Macrobid - GI was asked to evaluate for elevated LFTs. ABD US and CT w/ fatty liver, normal CBD but mention of PD dilation a 6mm. DDX discussed: possible DILI vs underlying fatty liver vs other 1. Stop Macrobid - NIH Liver Tox Likelihood A (well known cause of clinically apparent liver injury) 2. Continue to trend LFTs 3. Liver serology to rule out intrinsic causes of liver dysfunction including autoimmune studies, infectious studies and hereditary/genetic conditions 4. OP EUS for PD dilation I spent a total of 60 minutes on the date of service in review of patient's record, and previously obtained information in person and appropriate medical visit, discussion and education of plan, with patient and/or caregiver, placing orders for tests/referral/procedures as medically necessary and documentation of pertinent clinical information in patient's medical records for their visit today. Supervising Physician Co-Signing Physician Notes Agree with above. Potential adverse reaction to Macrodantin. Underlying fatty liver. At this point her symptoms have resolved with stopping Macrodantin liver test seem to be trending down she probably list this as an allergy. Her daughter is important a follow-up with her primary care physician to document normalization of her liver enzymes. Also has some pancreatic ductal dilatation and outpatient EUS will be arranged. History of Present Illness Reason for Consultation: elevated LFTs Requesting Physician: Melba Morales MD Attending Physician: Melba Morales MD History of Present Illness 73 year old female w/ history ofHTN, dyslipidemia, DM II, CKD III, COPD, depression, anxiety, ADRI, nocturnal hypoxia presented to ER with c/o nausea and fatigue x 5 days after starting Macrobid - GI was asked to evaluate for elevated LFTs. She notes she has had intermittent abd pain, mostly mid abd, nausea and general discomfort since starting ABX. Denies change in bowel habits. No report of black or bloody stools. No fever, chills, CP, SOB. Denies ETOH Denies tylenol Only new medication is Macrobid Tbili 1.5 --> 1.1 AST 187 --> 91 ALT 201 --> 133 ALKP 135 --> 102 ABD US 2024: Fatty liver. No gallstones or evidence of acute cholecystitis seen.Dilated pancreatic duct with no gross mass seen by ultrasound. Consider follow-up CT with IV contrast with pancreatic protocol. CTAP 2024: Liver: Hepatic steatosis is noted. Calcifications are seen in the liver which may represent prior granulomatous disease.Gallbladder and biliary tree: No calcified gallstones. Normal caliber wall. No intra- or extrahepatic biliary ductal dilation. Pancreas: Unremarkable, no focal lesions. Allergies Allergy/AdvReac Type Severity Reaction Status Date / Time Sulfa (Sulfonamide Allergy Severe face Verified 06/24/24 10:39 Antibiotics) tongue lips swelling,HEADACHE amoxicillin AdvReac Intermediate YEAST Verified 06/24/24 10:39 INFECTION clavulanic acid AdvReac Intermediate YEAST Verified 06/24/24 10:39 INFECTION codeine AdvReac Intermediate N/V Verified 06/24/24 10:39 Home Medications Medication Instructions Recorded Confirmed Type albuterol sulfate 2.5 mg/3 mL 2.5 mg continuous nebulization Q4H 02/17/24 07/08/24 History (0.083 %) solution for nebulization PRN Shortness Of Breath Or Wheezing albuterol sulfate 90 mcg/actuation 2 puff inhalation Q6H PRN 02/17/24 07/08/24 History aerosol inhaler (Ventolin HFA) Shortness Of Breath Or Wheezing ascorbic acid (vitamin C) 1,000 mg 1,000 mg PO DAILY 02/17/24 07/08/24 History tablet aspirin 81 mg tablet,delayed 81 mg PO DAILY 02/17/24 07/08/24 History release atorvastatin 10 mg tablet 10 mg PO HS 02/17/24 07/08/24 History carvedilol 6.25 mg tablet 6.25 mg PO BID 02/17/24 07/08/24 History cetirizine 10 mg tablet (Allergy 10 mg PO DAILY 02/17/24 07/08/24 History Relief (cetirizine)) citalopram 20 mg tablet 20 mg PO DAILY 02/17/24 07/08/24 History doxepin 25 mg capsule 25 mg PO HS 02/17/24 07/08/24 History famotidine 20 mg tablet 20 mg PO BID 02/17/24 07/08/24 History fluticasone 250 mcg-salmeterol 50 1 inh inhalation BID 02/17/24 07/08/24 History mcg/dose blistr powdr for inhalation fluticasone propionate 50 2 spray intranasal DAILY 02/17/24 07/08/24 History mcg/actuation nasal spray,suspension hydroxyzine HCl 25 mg tablet 25 mg PO BID PRN Anxiety 02/17/24 07/08/24 History levothyroxine 125 mcg tablet 125 mcg PO DAILY 02/17/24 07/08/24 History metformin 500 mg tablet 500 mg PO BID 02/17/24 07/08/24 History mirtazapine 30 mg tablet 30 mg PO HS 02/17/24 07/08/24 History montelukast 10 mg tablet 10 mg PO DAILY 02/17/24 07/08/24 History tizanidine 4 mg tablet 4 mg PO TID PRN muscle spasms 02/17/24 07/08/24 History vitamin B complex 1 cap PO DAILY 02/17/24 07/08/24 History midodrine 2.5 mg tablet 2.5 mg PO UD PRN Hypotension #0 02/19/24 07/08/24 Rx tabs nifedipine 30 mg tablet,extended 30 mg PO 1200 #0 tabs 02/19/24 07/08/24 Rx release diclofenac sodium 1 % topical gel 2 g topical QID 03/04/24 07/08/24 History (Arthritis Pain (diclofenac)) lorazepam 0.5 mg tablet 0.5 mg PO DAILY PRN ANXIETY 03/04/24 07/08/24 History omega-3 300 mg-dha 120 mg-epa 180 1 cap PO DIRECTED 03/04/24 07/08/24 History mg-fish oil 1,000 mg capsule perphenazine 2 mg tablet 2 mg PO DAILY 03/04/24 07/08/24 History triamcinolone acetonide 0.5 % 1 applic topical DIRECTED 03/04/24 07/08/24 History topical cream turmeric 450 mg-turmeric root 1 cap PO DIRECTED 03/04/24 07/08/24 History extract 50 mg capsule vitamin E (dl, acetate) 180 mg 180 mg PO DAILY 03/04/24 07/08/24 History (400 unit) capsule citalopram 10 mg tablet (Celexa) 10 mg PO DAILY 06/06/24 07/08/24 History garlic 1,000 mg capsule 1,000 mg PO UD 06/06/24 07/08/24 History phenazopyridine 100 mg tablet 100 mg PO TID PRN pain #15 tabs 06/06/24 07/08/24 Rx (Pyridium) Patient History Medical History Obesity Fatty liver Arthritis Degenerative disc disease Sciatica Thyroid enlarged no dysphagia Asthma mild, "well controlled and stable", rare inhaler use Surgical History History of colonoscopy History of left cataract surgery History of right cataract surgery History of right hip replacement History of hysterectomy History of hernia repair History of cardiac cath FOLLOWING HEART ATTACK, NO FINDINGS 1996 Family History Mother Family history of diabetes mellitus Aunt Family history of diabetes mellitus Son Family history of colon cancer Social History Smoking Status: Former smoker Tobacco Type: Cigarettes Second Hand Exposure: No; Do You Dip or Chew Tobacco: No; Hx Alcohol Use: No Hx Substance Use: No Preferred Language: Ghanaian Communication Ability: Effective Visual Impairment: No Limitations Hearing Ability: Normal Clinical Project Leader Required: No Beliefs That Will Affect Care: None Current Living Situation: Alone Current Living Situation Comment: caregiver somedays current occupational status: retired Feels Safe at Home: Yes Safety Concerns Comment: office of aging is visiting her tomorrow regarding getting more help @ home Assistive Devices: CPAP, Nebulizer, Oxygen - at Night and Walker Review of Systems Review of Systems: All other findings negative except as noted in HPI. Results & Data Vital Signs (Past 12 Hours) Vital Signs Temp Pulse Pulse Resp BP Pulse Ox O2 Del Method 07/09/24 07:28 99.0 F 79 18 117/77 91 Room Air 07/09/24 03:04 97.9 F 83 19 113/73 92 Room Air 07/09/24 00:53 82 Laboratory Results 07/09/24 07/09/24 07/08/24 Range/Units 07:32 05:45 23:29 WBC 5.88 (4.8-10.8) K/ul RBC 3.67 L (4.20-5.40) M/uL Hgb 11.0 L (12.0-16.0) g/dl Hct 32.6 L (37.0-47.0) % MCV 88.8 (80.0-100.0) fL MCH 30.0 (25.0-34.0) pg MCHC 33.7 (32.0-36.0) g/dL RDW Std Deviation 45.0 (36.4-46.3) fL RDW Coeff of Jennifer 13.8 (11.5-14.5) % Plt Count 181 (130-400) K/uL MPV 11.7 (9.4-12.4) fL Immature Gran % (Auto) 0.3 % Neut % (Auto) 76.5 % Lymph % (Auto) 7.8 % Lucas % (Auto) 5.3 % Eos % (Auto) 9.9 % Baso % (Auto) 0.2 % Neut # (Auto) 4.50 (1.40-6.50) K/uL Lymph # (Auto) 0.46 L (1.20-3.40) K/uL Lucas # (Auto) 0.31 (0.11-0.59) K/uL Eos # (Auto) 0.58 H (0.00-0.50) K/uL Baso # (Auto) 0.01 (0.00-0.20) K/uL Immature Gran # (Auto) 0.02 (0.01-0.20) K/uL PT (9.0-12.0) Seconds INR (0.9-1.1) APTT (21-31) Seconds PTT Ratio Sodium 135 L (136-145) mmol/L Potassium 3.7 (3.5-5.1) mmol/L Chloride 104 (98-107) mmol/L Carbon Dioxide 24 (21-32) mmol/L Anion Gap 7 (3-11) BUN 18 (6-23) mg/dl Creatinine 1.23 H (0.6-1.2) mg/dl Est Cr Clr Drug Dosing 42.7 eGFR 46.11 BUN/Creatinine Ratio 14.6 (10-20) Glucose 106 H (70-99(Fasting)) mg/dl POC Glucose 118 H (70-99) mg/dl Estimat Average Glucose 123 mg/dl Hemoglobin A1c 5.9 H (4.5-5.6) % Lactate (0.4-2.0) mmol/L Calcium 8.3 L (8.6-10.3) mg/dl Magnesium 1.8 (1.7-2.4) mg/dl Total Bilirubin 1.1 H (0.2-1.0) mg/dl Direct Bilirubin (0-0.2) mg/dl AST 91 H (13-39) U/L ALT 133 H (7-52) U/L Alkaline Phosphatase 102 (34-104) U/L Total Creatine Kinase (26-192) U/L Troponin I High Sens (0-14) pg/ml Total Protein 5.2 L (6.0-8.3) gm/dl Albumin 2.9 L (3.4-5.0) gm/dl Globulin 2.3 L (2.5-4.0) gm/dl Albumin/Globulin Ratio 1.3 (0.9-2) Lipase (11-82) U/L Procalcitonin (0-0.5) ng/ml Urine Color Urine Appearance (Clear) Urine pH (4.5-7.5) Ur Specific [place] (1.000-1.030) Urine Protein (Negative) Urine Glucose (UA) (Negative) Urine Ketones (Negative) Urine Blood (Negative) Urine Nitrite (Negative) Urine Bilirubin (Negative) Urine Urobilinogen (Negative) Ur Leukocyte Esterase (Negative) Urine WBC (Auto) (0-5) /hpf Urine RBC (Auto) (0-2) /hpf U Hyaline Cast (Auto) (0-2) /lpf U Epithel Cells (Auto) (0-2) /hpf Urine Bacteria (Auto) (None Seen) Urine Mucus (None Prsent) Ur [place] Metanephrines Pending U Normetanephrine Pending U Total Metanephrines Pending Urine Creatinine Pending Adenovirus (PCR) (NotDetected) B. pertussis DNA (PCR) (NotDetected) B.parapertussis DNA PCR (NotDetected) C. pneumoniae DNA (PCR) (NotDetected) Coronavirus OC43 (PCR) (NotDetected) Coronavirus HKU1 (PCR) (NotDetected) Coronavirus 229E (PCR) (NotDetected) SARS-CoV-2 (PCR) (NotDetected) Coronavirus NL63 (PCR) (NotDetected) Human Metapneumovir PCR (NotDetected) Influenza Type A (PCR) (NotDetected) Influenza Type B (PCR) (NotDetected) M. pneumoniae (PCR) (NotDetected) Parainfluenza 1 (PCR) (NotDetected) Parainfluenza 2 (PCR) (NotDetected) Parainfluenza 3 (PCR) (NotDetected) Parainfluenza 4 (PCR) (NotDetected) RSV (PCR) (NotDetected) Entero/Rhino (PCR) (NotDetected) 07/08/24 07/08/24 07/08/24 Range/Units 22:01 12:31 12:00 WBC (4.8-10.8) K/ul RBC (4.20-5.40) M/uL Hgb (12.0-16.0) g/dl Hct (37.0-47.0) % MCV (80.0-100.0) fL MCH (25.0-34.0) pg MCHC (32.0-36.0) g/dL RDW Std Deviation (36.4-46.3) fL RDW Coeff of Jennifer (11.5-14.5) % Plt Count (130-400) K/uL MPV (9.4-12.4) fL Immature Gran % (Auto) % Neut % (Auto) % Lymph % (Auto) % Lucas % (Auto) % Eos % (Auto) % Baso % (Auto) % Neut # (Auto) (1.40-6.50) K/uL Lymph # (Auto) (1.20-3.40) K/uL Lucas # (Auto) (0.11-0.59) K/uL Eos # (Auto) (0.00-0.50) K/uL Baso # (Auto) (0.00-0.20) K/uL Immature Gran # (Auto) (0.01-0.20) K/uL PT (9.0-12.0) Seconds INR (0.9-1.1) APTT (21-31) Seconds PTT Ratio Sodium (136-145) mmol/L Potassium (3.5-5.1) mmol/L Chloride (98-107) mmol/L Carbon Dioxide (21-32) mmol/L Anion Gap (3-11) BUN (6-23) mg/dl Creatinine (0.6-1.2) mg/dl Est Cr Clr Drug Dosing eGFR BUN/Creatinine Ratio (10-20) Glucose (70-99(Fasting)) mg/dl POC Glucose 152 H (70-99) mg/dl Estimat Average Glucose mg/dl Hemoglobin A1c (4.5-5.6) % Lactate (0.4-2.0) mmol/L Calcium (8.6-10.3) mg/dl Magnesium (1.7-2.4) mg/dl Total Bilirubin (0.2-1.0) mg/dl Direct Bilirubin (0-0.2) mg/dl AST (13-39) U/L ALT (7-52) U/L Alkaline Phosphatase (34-104) U/L Total Creatine Kinase (26-192) U/L Troponin I High Sens (0-14) pg/ml Total Protein (6.0-8.3) gm/dl Albumin (3.4-5.0) gm/dl Globulin (2.5-4.0) gm/dl Albumin/Globulin Ratio (0.9-2) Lipase (11-82) U/L Procalcitonin (0-0.5) ng/ml Urine Color Dark Yellow Urine Appearance Cloudy A (Clear) Urine pH 5.5 (4.5-7.5) Ur Specific [place] 1.018 (1.000-1.030) Urine Protein 1+ H (Negative) Urine Glucose (UA) Negative (Negative) Urine Ketones Trace H (Negative) Urine Blood Negative (Negative) Urine Nitrite Negative (Negative) Urine Bilirubin 1+ H (Negative) Urine Urobilinogen Negative (Negative) Ur Leukocyte Esterase 1+ H (Negative) Urine WBC (Auto) 6-10 H (0-5) /hpf Urine RBC (Auto) 3-5 H (0-2) /hpf U Hyaline Cast (Auto) >20 H (0-2) /lpf U Epithel Cells (Auto) 11-20 H (0-2) /hpf Urine Bacteria (Auto) None Seen (None Seen) Urine Mucus Present A (None Prsent) Ur [place] Metanephrines U Normetanephrine U Total Metanephrines Urine Creatinine Adenovirus (PCR) Not Detected (NotDetected) B. pertussis DNA (PCR) Not Detected (NotDetected) B.parapertussis DNA PCR Not Detected (NotDetected) C. pneumoniae DNA (PCR) Not Detected (NotDetected) Coronavirus OC43 (PCR) Not Detected (NotDetected) Coronavirus HKU1 (PCR) Not Detected (NotDetected) Coronavirus 229E (PCR) Not Detected (NotDetected) SARS-CoV-2 (PCR) Not Detected (NotDetected) Coronavirus NL63 (PCR) Not Detected (NotDetected) Human Metapneumovir PCR Not Detected (NotDetected) Influenza Type A (PCR) Not Detected (NotDetected) Influenza Type B (PCR) Not Detected (NotDetected) M. pneumoniae (PCR) Not Detected (NotDetected) Parainfluenza 1 (PCR) Not Detected (NotDetected) Parainfluenza 2 (PCR) Not Detected (NotDetected) Parainfluenza 3 (PCR) Not Detected (NotDetected) Parainfluenza 4 (PCR) Not Detected (NotDetected) RSV (PCR) Not Detected (NotDetected) Entero/Rhino (PCR) Not Detected (NotDetected) 07/08/24 07/08/24 Range/Units 11:57 11:34 WBC 10.06 (4.8-10.8) K/ul RBC 4.17 L (4.20-5.40) M/uL Hgb 12.4 (12.0-16.0) g/dl Hct 35.7 L (37.0-47.0) % MCV 85.6 (80.0-100.0) fL MCH 29.7 (25.0-34.0) pg MCHC 34.7 (32.0-36.0) g/dL RDW Std Deviation 42.7 (36.4-46.3) fL RDW Coeff of Jennifer 13.6 (11.5-14.5) % Plt Count 218 (130-400) K/uL MPV 11.4 (9.4-12.4) fL Immature Gran % (Auto) 0.5 % Neut % (Auto) 84.9 % Lymph % (Auto) 4.7 % Lucas % (Auto) 4.0 % Eos % (Auto) 5.7 % Baso % (Auto) 0.2 % Neut # (Auto) 8.55 H (1.40-6.50) K/uL Lymph # (Auto) 0.47 L (1.20-3.40) K/uL Lucas # (Auto) 0.40 (0.11-0.59) K/uL Eos # (Auto) 0.57 H (0.00-0.50) K/uL Baso # (Auto) 0.02 (0.00-0.20) K/uL Immature Gran # (Auto) 0.05 (0.01-0.20) K/uL PT 11.3 (9.0-12.0) Seconds INR 1.0 (0.9-1.1) APTT 27 (21-31) Seconds PTT Ratio 1.0 Sodium 131 L (136-145) mmol/L Potassium 3.8 (3.5-5.1) mmol/L Chloride 95 L (98-107) mmol/L Carbon Dioxide 26 (21-32) mmol/L Anion Gap 10 (3-11) BUN 21 (6-23) mg/dl Creatinine 1.47 H (0.6-1.2) mg/dl Est Cr Clr Drug Dosing Not Reportable eGFR 37.23 BUN/Creatinine Ratio 14.3 (10-20) Glucose 126 H (70-99(Fasting)) mg/dl POC Glucose (70-99) mg/dl Estimat Average Glucose mg/dl Hemoglobin A1c (4.5-5.6) % Lactate 1.6 (0.4-2.0) mmol/L Calcium 8.7 (8.6-10.3) mg/dl Magnesium 1.6 L (1.7-2.4) mg/dl Total Bilirubin 1.5 H (0.2-1.0) mg/dl Direct Bilirubin 0.7 H (0-0.2) mg/dl AST 187 H (13-39) U/L ALT 201 H (7-52) U/L Alkaline Phosphatase 135 H (34-104) U/L Total Creatine Kinase 31 (26-192) U/L Troponin I High Sens 5.2 (0-14) pg/ml Total Protein 6.5 (6.0-8.3) gm/dl Albumin 3.6 (3.4-5.0) gm/dl Globulin (2.5-4.0) gm/dl Albumin/Globulin Ratio (0.9-2) Lipase 23 (11-82) U/L Procalcitonin 4.58 H (0-0.5) ng/ml Urine Color Urine Appearance (Clear) Urine pH (4.5-7.5) Ur Specific [place] (1.000-1.030) Urine Protein (Negative) Urine Glucose (UA) (Negative) Urine Ketones (Negative) Urine Blood (Negative) Urine Nitrite (Negative) Urine Bilirubin (Negative) Urine Urobilinogen (Negative) Ur Leukocyte Esterase (Negative) Urine WBC (Auto) (0-5) /hpf Urine RBC (Auto) (0-2) /hpf U Hyaline Cast (Auto) (0-2) /lpf U Epithel Cells (Auto) (0-2) /hpf Urine Bacteria (Auto) (None Seen) Urine Mucus (None Prsent) Ur [place] Metanephrines U Normetanephrine U Total Metanephrines Urine Creatinine Adenovirus (PCR) (NotDetected) B. pertussis DNA (PCR) (NotDetected) B.parapertussis DNA PCR (NotDetected) C. pneumoniae DNA (PCR) (NotDetected) Coronavirus OC43 (PCR) (NotDetected) Coronavirus HKU1 (PCR) (NotDetected) Coronavirus 229E (PCR) (NotDetected) SARS-CoV-2 (PCR) (NotDetected) Coronavirus NL63 (PCR) (NotDetected) Human Metapneumovir PCR (NotDetected) Influenza Type A (PCR) (NotDetected) Influenza Type B (PCR) (NotDetected) M. pneumoniae (PCR) (NotDetected) Parainfluenza 1 (PCR) (NotDetected) Parainfluenza 2 (PCR) (NotDetected) Parainfluenza 3 (PCR) (NotDetected) Parainfluenza 4 (PCR) (NotDetected) RSV (PCR) (NotDetected) Entero/Rhino (PCR) (NotDetected) PG Care Time/CCT Total # of Minutes Spent Total Time Spent with Patient: Total time spent is greater than 50% in coordination of care (as documented) at patient's floor/unit and/or counseling patient: Coding Level of Care Code 37881 INT INP/OBS CARE 2/55MIN Diagnoses Elevated LFTs R79.89
[2024-07-09 12:12] LABS: Ferritin 72.8 ng/ml (8-388)
[2024-07-09 12:26] LABS: Hep B Surface Ag with confirm Negative (Negative)
[2024-07-09 12:31] LABS: Hep C Ab Rflx HepCQuant RNA Negative (Negative)
--- NOTE | 2024-07-09 15:24 | Hospitalist Progress Note ---
Date of Service July 09, 2024 Assessment & Plan (1) Hematuria: (2) Elevated LFTs: (3) Symptomatic hypotension: (4) Labile blood pressure: (5) Hypomagnesemia: (6) Acute kidney injury superimposed on CKD: (7) Dyslipidemia: (8) Diabetes mellitus, type II: (9) Anxiety and depression: (10) COPD (chronic obstructive pulmonary disease): (11) ADRI (obstructive sleep apnea): Plan: 73 year old female with PMH of HTN, dyslipidemia, DM II, CKD III, COPD, dep ression, anxiety, ADRI, nocturnal hypoxia presented to ER with c/o nausea and fatigue x 5 days after starting Macrobid after 07/03/2024 cystoscopy for hematuria. Due to recurrent hematuria and suspected bladder tumor, patient underwent cystoscopy 07/03/2024 and was placed on nitrofurantoin for 7-day course. She is being managed for the following: #Elevated LFTs #Hypotension #Hematuria #History labile hypertension Patient presents with nausea and fatigue for 5 days after starting Macrobid 07/03/2024. No leukocytosis, lactate WNL, procalcitonin elevated at 4.58. LFT including T. bili elevated. CTAP: Hepatic steatosis. Bladder wall thickening suggestive of cystitis. Gallbladder USG: No gallstone or evidence of acute cholecystitis. Fatty liver noted. Dilated pancreatic duct with no gross mass seen by ultrasound. Recommends follow-up CT with IV contrast with pancreatic protocol. Pt with known orthostatic hypotension and h/o labile BP. Has midodrine to use prn. Hold home carvedilol, nifedipine at this time. Urology, Dr Vicente has pending outpatient workup for possible pheochromocytoma. Soft blood pressure noted at presentation, patient with labile hypertension likely exacerbated by poor p.o. intake prior to arrival. Elevated LFT likely secondary to hypotensive injury versus daily versus fatty liver versus other. Hold statin until LFT normalizes. GI on board, liver serologies pending, plan for outpatient EUS for pancreatic duct dilation. Follow labs in AM. c/w gentle ivf, zosyn for ? GI coverage. Adv diet as carlitos. Monitor replete electrolytes. Possible UTI/ Incidental UTI unrelated to recent cystoscopy: Follow admitting urine culture and blood culture results. Continue with Zosyn 07/09 (concern for possible GI source of infection given presentation, see above). De-escalate antibiotic once culture results are available. Acute kidney injury over CKD stage III: Baseline creatinine of 1.1, admitting creatinine of 1.47, status post IV fluid, creatinine improving. Avoid nephrotoxic agents, labs in AM. Iron deficiency anemia: Hemoglobin around 11-12 & stable, iron profile with iron level of 34 and transferrin saturation of 13. Will get vitamin B12 and folate levels. Patient with likely will benefit from outpatient colonoscopy. Will start PO iron once N, V resolves. Dyslipidemia: Continue atorvastatin Anxiety, depression: Continue home medications ADRI, nocturnal hypoxia: CPAP at bedtime DVT prophylaxis: Heparin subcu PT/OT, CM to assist with DC planning. Admission and Anticipated Discharge Date Admission Date: July 08, 2024 Subjective Patient was seen and examined at bedside. Patient was lying in bed, on room air, NAD, resting comfortably. Patient reports improving nausea, vomiting. Patient reports starting to feel hungry now. Patient reports moving bowels okay, denies sore throat/fever/cough/chest pain. Physical Exam Physical Exam: General: no acute distress, overweight elderly female Head: normocephalic, atraumatic Eyes: conjunctiva non-injected, anicteric ENT: normal inspection external ears, nose, mucous membranes moist Neck: supple, trachea midline Lungs: clear, no respiratory distress, no wheezing/rhonchi/rales CV: RRR, + murmur, no pretibial edema Abd: protuberant, normal BS, soft, non-tender to palpation RUQ, +mild tenderness to palpation epigastric, LUQ, diffuse lower abdominal without guarding or rebound Ext: no cyanosis, no calf tenderness Neuro: A&O x 3, no focal deficits noted, normal affect Skin: warm, dry Results & Data Results & Data Vital Signs (Past 12 Hours) Vital Signs Temp Pulse Resp BP Pulse Ox O2 Del Method 07/09/24 11:20 Room Air 07/09/24 11:17 36.6 C 78 16 136/83 94 Room Air 07/09/24 07:28 37.2 C 79 18 117/77 91 Room Air (1) Hematuria Hematuria type: unspecified type Qualified Code(s): R31.9 - Hematuria, unspecified
[2024-07-09] MEDS: MIDODRINE HCL 2.5 MG TAB PO PRN (20:03)
[2024-07-10 03:09] VITALS: RESP 18
[2024-07-10 07:26] LABS: Hematocrit (blood only) 32.8 % (37.0-47.0); Hemoglobin 11.2 g/dl (12.0-16.0); Mean Corpuscular Hemoglobin 30.2 pg (25.0-34.0); Mean Corpuscular Hgb Conc 34.1 g/dL (32.0-36.0); Mean Corpuscular Volume 88.4 fL (80.0-100.0); Mean Platelet Volume 11.4 fL (9.4-12.4); Platelet Count 233 K/uL (130-400); RDW Standard Deviation 45.1 fL (36.4-46.3); Red Blood Count 3.71 M/uL (4.20-5.40); White Blood Count 5.96 K/ul (4.8-10.8)
[2024-07-10 07:43] LABS: Albumin Globulin Ratio 1.2 (0.9-2); Albumin Level 3.2 gm/dl (3.4-5.0); BUN Creatinine Ratio 12.8 (10-20); Bilirubin,Total 0.7 mg/dl (0.2-1.0); Calcium 8.9 mg/dl (8.6-10.3); Creatinine Clr Calc Pharmacy 44.9 ml/min; Globulin 2.6 gm/dl (2.5-4.0); Magnesium 1.6 mg/dl (1.7-2.4); Phosphorus 3.1 mg/dl (2.5-4.9); Total Protein 5.8 gm/dl (6.0-8.3)
[2024-07-10 08:10] LABS: Folate (Folic Acid),Ser orPlas > 22.30 ng/ml (>5.38)
[2024-07-10 08:11] LABS: Vitamin B12 > 1500 pg/ml (180-914)
[2024-07-10] MEDS: MAGNESIUM SULFATE / D5W 1 GM/100 ML BAG IV SCH (10:04)
--- NOTE | 2024-07-10 10:37 | Gastroenterology Progress Note ---
Date of Service July 10, 2024 Assessment & Plan (1) Elevated LFTs: Plan: 73 year old female w/ history ofHTN, dyslipidemia, DM II, CKD III, COPD, depression, anxiety, ADRI, nocturnal hypoxia presented to ER with c/o nausea and fatigue x 5 days after starting Macrobid - GI was asked to evaluate for elevated LFTs. ABD US and CT w/ fatty liver, normal CBD but mention of PD dilation a 6mm. DDX discussed: possible DILI vs underlying fatty liver vs other No GI contraindication to diet or discharge Stop Macrobid - NIH Liver Tox Likelihood A (well known cause of clinically apparent liver injury) Trend LFTs Follow liver serology once able in office OP EUS for PD dilation Will sign off. I spent a total of 40 minutes on the date of service in review of patient's record, and previously obtained information in person and appropriate medical visit, discussion and education of plan, with patient and/or caregiver, placing orders for tests/referral/procedures as medically necessary and documentation of pertinent clinical information in patient's medical records for their visit today. Admission and Anticipated Discharge Date Admission Date: July 08, 2024 Subjective Feeling well! No abd pain. Tolerating PO intak. No nausea. Review of Systems Review of Systems: All other findings negative except as noted in HPI. Physical Exam Constitutional: WD/WN, vitals as above Respiratory: normal respiratory effort, lungs clear to auscultation Cardiovascular: Rate/Rhythm: regular rate Gastrointestinal (Abdomen): normal bowel sounds, soft, nontender, no hepatosplenomegaly Skin: no rashes, warm and dry Results & Data Results & Data Vital Signs (Past 12 Hours) Vital Signs Temp Pulse Pulse Resp BP Pulse Ox O2 Del Method 07/10/24 07:58 97.9 F 81 18 148/77 H 92 Room Air 07/10/24 03:08 98.1 F 81 18 143/83 H 93 Room Air 07/10/24 00:01 87 07/09/24 23:03 97.7 F 86 17 128/65 91 Room Air PG Care Time/CCT Total # of Minutes Spent Total Time Spent with Patient: Total time spent is greater than 50% in coordination of care (as documented) at patient's floor/unit and/or counseling patient: Coding Level of Care Code 56431 SUB INP/OBS CARE 2/35MIN Diagnoses Elevated LFTs R79.89
[2024-07-10] MEDS ORDERED: hydrOXYzine HCl 25 MG TAB PO PRN (13:41)
[2024-07-10] MEDS ORDERED: LORazepam 0.5 MG TAB PO PRN (13:41)
--- NOTE | 2024-07-10 14:33 | Hospitalist Progress Note ---
Date of Service July 10, 2024 Assessment & Plan (1) Hematuria: (2) Elevated LFTs: (3) Symptomatic hypotension: (4) Labile blood pressure: (5) Hypomagnesemia: (6) Acute kidney injury superimposed on CKD: (7) Dyslipidemia: (8) Diabetes mellitus, type II: (9) Anxiety and depression: (10) COPD (chronic obstructive pulmonary disease): (11) ADRI (obstructive sleep apnea): Plan: 73 year old female with PMH of HTN, dyslipidemia, DM II, CKD III, COPD, dep ression, anxiety, ADRI, nocturnal hypoxia presented to ER with c/o nausea and fatigue x 5 days after starting Macrobid after 07/03/2024 cystoscopy for hematuria. Due to recurrent hematuria and suspected bladder tumor, patient underwent cystoscopy 07/03/2024 and was placed on nitrofurantoin for 7-day course. She is being managed for the following: #Elevated LFTs #Hypotension #Hematuria #History labile hypertension Patient presents with nausea and fatigue for 5 days after starting Macrobid 07/03/2024. No leukocytosis, lactate WNL, procalcitonin elevated at 4.58. LFT including T. bili elevated. CTAP: Hepatic steatosis. Bladder wall thickening suggestive of cystitis. Gallbladder USG: No gallstone or evidence of acute cholecystitis. Fatty liver noted. Dilated pancreatic duct with no gross mass seen by ultrasound. Recommends follow-up CT with IV contrast with pancreatic protocol. Pt with known orthostatic hypotension and h/o labile BP. Has midodrine to use prn. Hold home carvedilol, nifedipine at this time. Urology, Dr Vicente has pending outpatient workup for possible pheochromocytoma. 24 hr urine has been collected this admission. Soft blood pressure noted at presentation, patient with labile hypertension likely exacerbated by poor p.o. intake prior to arrival. Elevated LFT likely secondary to hypotensive injury versus daily versus fatty liver versus other. Hold statin until LFT normalizes. GI on board, liver serologies pending, plan for outpatient EUS for pancreatic duct dilation. LFT slowly trending down, patient with no nausea/vomiting/abdominal pain, patient tolerating diet well. Labs in AM, DC GI atb coverage as no signs of GI infection. Monitor replete electrolytes. Possible UTI/ Incidental UTI unrelated to recent cystoscopy: Follow admitting urine culture and blood culture results - no growth so far. Zosyn 07/09 --to rocephin 07/10. 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 Acute kidney injury over CKD stage III: Baseline creatinine of 1.1, admitting creatinine of 1.47, status post IV fluid, creatinine resolved. Iron deficiency anemia: Hemoglobin around 11-12 & stable, iron profile with iron level of 34 and transferrin saturation of 13. Nl vitamin B12 and folate levels. Patient with likely will benefit from outpatient colonoscopy. Will start PO iron 07/11 Dyslipidemia: Continue atorvastatin Anxiety, depression: Continue home medications ADRI, nocturnal hypoxia: CPAP at bedtime DVT prophylaxis: Heparin subcu PT/OT, CM to assist with DC planning. likely dc stacie. Admission and Anticipated Discharge Date Admission Date: July 08, 2024 Subjective Patient was seen and examined at bedside. Patient was sitting up in chair, on room air, NAD, resting comfortably. Patient reports improving nausea, vomiting. Pt reports no belly pain, reports tolerating diet well. Patient reports moving bowels okay, denies sore throat/fever/cough/chest pain. Physical Exam Physical Exam: General: no acute distress, overweight elderly female Head: normocephalic, atraumatic Eyes: conjunctiva non-injected, anicteric ENT: normal inspection external ears, nose, mucous membranes moist Neck: supple, trachea midline Lungs: clear, no respiratory distress, no wheezing/rhonchi/rales CV: RRR, + murmur, no pretibial edema Abd: protuberant, normal BS, soft, non-tender to palpation. Ext: no cyanosis, no calf tenderness Neuro: A&O x 3, no focal deficits noted, normal affect Skin: warm, dry Results & Data Results & Data Vital Signs (Past 12 Hours) Vital Signs Temp Pulse Resp BP Pulse Ox O2 Del Method 07/10/24 12:08 36.6 C 76 18 135/76 96 Room Air 07/10/24 07:58 36.6 C 81 18 148/77 H 92 Room Air 07/10/24 03:08 36.7 C 81 18 143/83 H 93 Room Air (1) Hematuria Hematuria type: unspecified type Qualified Code(s): R31.9 - Hematuria, unspecified
--- NOTE | 2024-07-10 16:16 | Urology Consultation ---
Date of Consultation July 10, 2024 Assessment & Plan (1) Acute UTI (urinary tract infection): (2) Bladder tumor: (3) Hematuria: Plan 73 year old female admitted with concern for UTI, hematuria, elevated LFTs, hypotension, history of labile hypertension. Pt afebrile and hemodynamically stable at present Labs today reviewed-WBC 5.96, hemoglobin 11.2, creatinine 1.17 Urine culture negative, blood cultures preliminary no growth Continues on ceftriaxone Zimmerman draining clear yellow urine CT reviewed- Bladder wall thickening, Zimmerman in place She is asking about having the Zimmerman catheter removed which is okay from our standpoint Patient is currently undergoing outpatient workup with urology and endocrinology for possible pheochromocytoma - Will continue with outpatient work-up. Urology will sign-off. Please call with any questions/concerns. History of Present Illness Attending Physician: Melba Morales MD History of Present Illness 73 year old female with PMH of HTN, dyslipidemia, DM II, CKD III, COPD, depression, anxiety, ADRI, nocturnal hypoxia presented to ER with c/o nausea and fatigue x 5 days after starting Macrobid and is admitted with hematuria, hypotension, elevated liver function tests. Urology has been consulted per patient request and given recent cystoscopy. Per chart review- Patient underwent cystoscopy in the urology clinic on 07/03/[address] Vicente for work-up of hematuria. Cystoscopy revealed an abnormal mass on the left side of the bladder suspicious for bladder tumor. Per notes, with her history of episodic hyper and hypotension, elevated elevated normetanephrine, there was suspicion of the possibility of underlying pheochromocytoma. Plan is to pursue additional testing and evaluation of endocrinology. Due to urinary symptoms, urine culture was sent and she was placed on nitrofurantoin. Patient seen at bedside today. She is awake and resting in bed on arrival. No acute distress. Zimmerman draining clear yellow urine. Allergies Allergy/AdvReac Type Severity Reaction Status Date / Time Sulfa (Sulfonamide Allergy Severe face Verified 06/24/24 10:39 Antibiotics) tongue lips swelling,HEADACHE amoxicillin AdvReac Intermediate YEAST Verified 06/24/24 10:39 INFECTION clavulanic acid AdvReac Intermediate YEAST Verified 06/24/24 10:39 INFECTION codeine AdvReac Intermediate N/V Verified 06/24/24 10:39 nitrofurantoin AdvReac liver Verified 07/10/24 14:26 [From Macrobid] injury Home Medications Medication Instructions Recorded Confirmed Type albuterol sulfate 2.5 mg/3 mL 2.5 mg continuous nebulization Q4H 02/17/24 History (0.083 %) solution for nebulization PRN Shortness Of Breath Or Wheezing albuterol sulfate 90 mcg/actuation 2 puff inhalation Q6H PRN 02/17/24 07/08/24 History aerosol inhaler (Ventolin HFA) Shortness Of Breath Or Wheezing ascorbic acid (vitamin C) 1,000 mg 1,000 mg PO DAILY 02/17/24 07/08/24 History tablet aspirin 81 mg tablet,delayed 81 mg PO DAILY 02/17/24 07/08/24 History release atorvastatin 10 mg tablet 10 mg PO HS 02/17/24 07/08/24 History carvedilol 6.25 mg tablet 6.25 mg PO BID 02/17/24 07/08/24 History cetirizine 10 mg tablet (Allergy 10 mg PO DAILY 02/17/24 07/08/24 History Relief (cetirizine)) citalopram 20 mg tablet 20 mg PO DAILY 02/17/24 07/08/24 History doxepin 25 mg capsule 25 mg PO HS 02/17/24 07/08/24 History famotidine 20 mg tablet 20 mg PO BID 02/17/24 07/08/24 History fluticasone 250 mcg-salmeterol 50 1 inh inhalation BID 02/17/24 07/08/24 History mcg/dose blistr powdr for inhalation fluticasone propionate 50 2 spray intranasal DAILY 02/17/24 07/08/24 History mcg/actuation nasal spray,suspension hydroxyzine HCl 25 mg tablet 25 mg PO BID PRN Anxiety 02/17/24 07/08/24 History levothyroxine 125 mcg tablet 125 mcg PO DAILY 02/17/24 07/08/24 History metformin 500 mg tablet 500 mg PO BID 02/17/24 07/08/24 History mirtazapine 30 mg tablet 30 mg PO HS 02/17/24 07/08/24 History montelukast 10 mg tablet 10 mg PO DAILY 02/17/24 07/08/24 History tizanidine 4 mg tablet 4 mg PO TID PRN muscle spasms 02/17/24 07/08/24 History vitamin B complex 1 cap PO DAILY 02/17/24 07/08/24 History midodrine 2.5 mg tablet 2.5 mg PO UD PRN Hypotension #0 02/19/24 07/08/24 Rx tabs nifedipine 30 mg tablet,extended 30 mg PO 1200 #0 tabs 02/19/24 07/08/24 Rx release diclofenac sodium 1 % topical gel 2 g topical QID 03/04/24 07/08/24 History (Arthritis Pain (diclofenac)) lorazepam 0.5 mg tablet 0.5 mg PO DAILY PRN ANXIETY 03/04/24 07/08/24 History omega-3 300 mg-dha 120 mg-epa 180 1 cap PO DIRECTED 03/04/24 07/08/24 History mg-fish oil 1,000 mg capsule perphenazine 2 mg tablet 2 mg PO DAILY 03/04/24 07/08/24 History triamcinolone acetonide 0.5 % 1 applic topical DIRECTED 03/04/24 07/08/24 History topical cream turmeric 450 mg-turmeric root 1 cap PO DIRECTED 03/04/24 07/08/24 History extract 50 mg capsule vitamin E (dl, acetate) 180 mg 180 mg PO DAILY 03/04/24 07/08/24 History (400 unit) capsule citalopram 10 mg tablet (Celexa) 10 mg PO DAILY 06/06/24 07/08/24 History garlic 1,000 mg capsule 1,000 mg PO UD 06/06/24 07/08/24 History phenazopyridine 100 mg tablet 100 mg PO TID PRN pain #15 tabs 06/06/24 07/08/24 Rx (Pyridium) Patient History Medical History Obesity Fatty liver Arthritis Degenerative disc disease Sciatica Thyroid enlarged no dysphagia Asthma mild, "well controlled and stable", rare inhaler use Surgical History History of colonoscopy History of left cataract surgery History of right cataract surgery History of right hip replacement History of hysterectomy History of hernia repair History of cardiac cath FOLLOWING HEART ATTACK, NO FINDINGS 1997 Family History Mother Family history of diabetes mellitus Aunt Family history of diabetes mellitus Son Family history of colon cancer Social History Smoking Status: Former smoker Tobacco Type: Cigarettes Second Hand Exposure: No; Do You Dip or Chew Tobacco: No; Hx Alcohol Use: No Hx Substance Use: No Preferred Language: Yi Communication Ability: Effective Visual Impairment: No Limitations Hearing Ability: Normal Helper Animal Laboratory Required: No Beliefs That Will Affect Care: None Current Living Situation: Alone Current Living Situation Comment: caregiver somedays current occupational status: retired Feels Safe at Home: Yes Safety Concerns Comment: office of aging is visiting her tomorrow regarding getting more help @ home Assistive Devices: CPAP, Nebulizer, Oxygen - at Night and Walker Review of Systems Review of Systems: All systems reviewed & are unremarkable except as noted in HPI & below Physical Exam Constitutional: no acute distress Respiratory: no respiratory distress and no labored breathing Musculoskeletal: Head/Neck/Chest: normocephalic Skin: No visible rashes or lesions to exposed skin areas Neurologic: awake Psychiatric: A+Ox3, euthymic affect Genitourinary: Zimmerman intact draining clear yellow urine Results & Data Vital Signs (Past 12 Hours) Vital Signs Temp Pulse Resp BP Pulse Ox O2 Del Method 07/10/24 15:26 36.5 C 75 18 156/87 H 94 Room Air 07/10/24 12:08 36.6 C 76 18 135/76 96 Room Air 07/10/24 07:58 36.6 C 81 18 148/77 H 92 Room Air PG Care Time/CCT Total # of Minutes Spent Total Time Spent with Patient: Total time spent is greater than 50% in coordination of care (as documented) at patient's floor/unit and/or counseling patient: Coding Level of Care Code 55420 INT INP/OBS CARE 1/40MIN Diagnoses Acute UTI (urinary tract infection) N39.0 Bladder tumor D49.4 Hematuria R31.9 Hematuria type: unspecified type (3) Hematuria Hematuria type: unspecified type Qualified Code(s): R31.9 - Hematuria, unspecified
[2024-07-10] MEDS: cefTRIAXone SODIUM 2,000 MG/50 ML BAG IV SCH (16:19)
[2024-07-11 06:29] LABS: Hematocrit (blood only) 34.1 % (37.0-47.0); Hemoglobin 11.9 g/dl (12.0-16.0); Mean Corpuscular Hemoglobin 30.4 pg (25.0-34.0); Mean Corpuscular Hgb Conc 34.9 g/dL (32.0-36.0); Mean Corpuscular Volume 87.2 fL (80.0-100.0); Mean Platelet Volume 11.1 fL (9.4-12.4); Platelet Count 290 K/uL (130-400); RDW Coefficient of Variation 14.1 % (11.5-14.5); RDW Standard Deviation 44.8 fL (36.4-46.3); Red Blood Count 3.91 M/uL (4.20-5.40)
[2024-07-11 06:51] LABS: Albumin Globulin Ratio 1.1 (0.9-2); Albumin Level 3.3 gm/dl (3.4-5.0); BUN Creatinine Ratio 9.8 (10-20); Bilirubin,Total 0.5 mg/dl (0.2-1.0); Creatinine Clr Calc Pharmacy 51.1 ml/min; Globulin 2.9 gm/dl (2.5-4.0); Magnesium 1.7 mg/dl (1.7-2.4); Potassium 3.5 mmol/L (3.5-5.1); Total Protein 6.2 gm/dl (6.0-8.3)
[2024-07-11] MEDS: FERROUS GLUCONATE 324 MG TAB PO SCH (09:03)
[2024-07-11 10:53] VITALS: BP 148/80; TEMP 97.9; O2SAT 92
--- NOTE | 2024-07-11 12:31 | Discharge Summary ---
Date of Service July 11, 2024 Admission HPI Per Admitting Provider Patient is 73 year old female with PMH HTN, dyslipidemia, DM II, CKD III, COPD, depression, anxiety, ADRI, nocturnal hypoxia presented to ER with c/o nausea and fatigue x 5 days. Patient has been having intermittent hematuria and on 07/03/2024 cystoscopy for hematuria and suspected bladder tumor performed by by Dr. Vicente and was placed on nitrofurantoin for 7-day course. Patient states since starting antibiotic has been having nausea and decreased appetite and decreased oral intake. States for months having lower abdominal pressure that is worse with urinating and having dysuria. Denies other abdominal pain. Denies vomiting or diarrhea. States also having generalized weakness and fatigue past 5 days. Denies fever/chills, [place], syncope, vision changes, neck pain, CP, SOB, palpitations, cough, sore throat, rhinorrhea, extremity weakness, extremity edema, rashes. Admission Exam Per Admitting Provider General: no acute distress, overweight elderly female Head: normocephalic, atraumatic Eyes: conjunctiva non-injected, anicteric ENT: normal inspection external ears, nose, mucous membranes dry Neck: supple, trachea midline Lungs: clear, no respiratory distress, no wheezing/rhonchi/rales CV: RRR, + murmur, no pretibial edema Abd: protuberant, normal BS, soft, non-tender to palpation RUQ, +mild tenderness to palpation epigastric, LUQ, diffuse lower abdominal without guarding or rebound Ext: no cyanosis, no calf tenderness Neuro: A&O x 3, no focal deficits noted, normal affect Skin: warm, dry Principal Diagnosis Elevated LFTs Hypotension Hematuria History labile hypertension Possible UTI/ Incidental UTI unrelated to recent cystoscopy Acute kidney injury over CKD stage III Discharge Exam General: no acute distress, overweight elderly female Head: normocephalic, atraumatic Eyes: conjunctiva non-injected, anicteric ENT: normal inspection external ears, nose, mucous membranes moist Neck: supple, trachea midline Lungs: clear, no respiratory distress, no wheezing/rhonchi/rales CV: RRR, + murmur, no pretibial edema Abd: protuberant, normal BS, soft, non-tender to palpation. Ext: no cyanosis, no calf tenderness Neuro: A&O x 3, no focal deficits noted, normal affect Skin: warm, dry Discharge Data Allergies Allergy/AdvReac Type Severity Reaction Status Date / Time Sulfa (Sulfonamide Allergy Severe face Verified 06/24/24 10:39 Antibiotics) tongue lips swelling,HEADACHE amoxicillin AdvReac Intermediate YEAST Verified 06/24/24 10:39 INFECTION clavulanic acid AdvReac Intermediate YEAST Verified 06/24/24 10:39 INFECTION codeine AdvReac Intermediate N/V Verified 06/24/24 10:39 nitrofurantoin AdvReac liver Verified 07/10/24 14:26 [From Macrobid] injury Consultations 07/09/24 08:00 Consult Gastroenterology Routine 07/10/24 11:06 Consult Urology Routine Ordered Studies 07/08/24 12:27 CT Abd and Pelvis [CT abd pelvis wo con] Stat 07/08/24 13:41 US gallbladder Stat Hospital Course (1) Hematuria: (2) Elevated LFTs: (3) Symptomatic hypotension: (4) Labile blood pressure: (5) Hypomagnesemia: (6) Acute kidney injury superimposed on CKD: (7) Dyslipidemia: (8) Diabetes mellitus, type II: (9) Anxiety and depression: (10) COPD (chronic obstructive pulmonary disease): (11) ADRI (obstructive sleep apnea): 73 year old female with PMH of HTN, dyslipidemia, DM II, CKD III, COPD, depression, anxiety, ADRI, nocturnal hypoxia presented to ER with c/o nausea and fatigue x 5 days after starting Macrobid after 07/03/2024 cystoscopy for hematuria. Due to recurrent hematuria and suspected bladder tumor, patient underwent cystoscopy 07/03/2024 and was placed on nitrofurantoin for 7-day course. She was managed for the following: #Elevated LFTs #Hypotension #Hematuria #History labile hypertension Patient presents with nausea and fatigue for 5 days after starting Macrobid 07/03/2024. No leukocytosis, lactate WNL, procalcitonin elevated at 4.58. LFT including T. bili elevated. CTAP: Hepatic steatosis. Bladder wall thickening suggestive of cystitis. Gallbladder USG: No gallstone or evidence of acute cholecystitis. Fatty liver noted. Dilated pancreatic duct with no gross mass seen by ultrasound. Recommends follow-up CT with IV contrast with pancreatic protocol. Pt with known orthostatic hypotension and h/o labile BP. Has midodrine to use prn. Hold home carvedilol, nifedipine at this time. Urology, Dr Vicente has pending outpatient workup for possible pheochromocytoma. 24 hr urine has been collected this admission. Soft blood pressure noted at presentation, patient with labile hypertension likely exacerbated by poor p.o. intake prior to arrival. Elevated LFT likely secondary to hypotensive injury versus daily versus fatty liver versus other. Hold statin until LFT normalizes. GI on board, liver serologies pending, plan for outpatient EUS for pancreatic duct dilation. LFT slowly trending down, patient with no nausea/vomiting/abdominal pain, patient tolerating diet well. f/u w/ pcp and gi as OP. Possible UTI/ Incidental UTI unrelated to recent cystoscopy: Follow admitting urine culture and blood culture results - no growth so far. Zosyn 07/09 --to rocephin 07/10. 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 appreciate uro recs, f/u uro as OP in 1-2 weeks. Acute kidney injury over CKD stage III: Baseline creatinine of 1.1, admitting creatinine of 1.47, status post IV fluid, creatinine resolved. Iron deficiency anemia: Hemoglobin around 11-12 & stable, iron profile with iron level of 34 and transferrin saturation of 13. Nl vitamin B12 and folate levels. Patient with likely will benefit from outpatient colonoscopy. Will start PO iron 07/11 Dyslipidemia: Continue atorvastatin Anxiety, depression: Continue home medications ADRI, nocturnal hypoxia: CPAP at bedtime DVT prophylaxis: Heparin subcu PT/OT, CM to assist with DC planning. Patient is being discharged home with following instructions at the point of discharge: Follow-up with your primary care physician within a week time and likely you will need labs CBC/CMP/magnesium/phosphorus. You were evaluated for nausea, vomiting, abdominal pain, elevated liver enzymes in the setting of nitrofurantoin use. Avoid nitrofurantoin in future. Follow-up with GI physician in 2 to 4 weeks time upon discharge, you will benefit from outpatient EUS for pancreatic duct dilatation noted while in hospital. Coordinate with your PCP office to set up the referral. You will need repeat liver function test in 1 to 2 weeks time upon discharge and periodic monitoring until liver function normalizes. Your statin is on hold while your liver function are elevated, coordinate with your PCP office as to the timing of resuming your statin. You will be discharged on oral antibiotic to complete course for UTI. Probiotics will be added. You are noted to have iron deficiency while in the hospital, you will be discharged on iron supplement. You will need repeat iron levels/vitamin B12 level/folate levels in about 3 months time, coordinate with your PCP office to set up the test. Follow-up with urology in 2 to 4 weeks time upon discharge. Take your medications as prescribed. Please make sure that you are able to get your medications today by calling your pharmacy before you leave the hospital so that your treatment continuity is not broken. Home Health Attestation I certify that this patient is under my care and that I, or a physicians lens assistant working with me, had a face to-face encounter that meets the home health [id number] encounter requirements with this patient. The encounter with the patient was in whole, or in part, for the following medical condition, which is the primary reason for home health care (list medical condition): I certify that, based on my findings, the following services are medically necessary home health services: My clinical findings support the need for the above services because: Further, I certify that my clinical findings support that this patient is homebound (i.e. absences from home require considerable and taxing effort and are for medical reasons or druze services or infrequently or of short duration when for other reasons) because: Certification for Home Health Services: Based on the above findings, I certify that this patient is confined to the home and needs intermittent detention care, physical therapy and/or speech therapy or continues to need occupational therapy. The patient is under my care, and I have initiated the establishment of the plan of care. This patient will be followed by a physician who will periodically review the plan of care. Total Time Total Time Spent Total Time Spent (In Minutes): 35 Discharge Plan Discharge Items Patient Disposition: Home - Self-Care Reason For Visit: HYPOTENSION Discharge Diagnosis: Elevated LFTs Hypotension Hematuria History labile hypertension Possible UTI/ Incidental UTI unrelated to recent cystoscopy Acute kidney injury over CKD stage III Activity: Resume your previous activity Non-emergency contact: Primary Care Provider Call non-emergency contact if: you have any medication questions and your symptoms worsen Follow-up/Referrals: Patti Posadas MD [Primary Care Provider] - (Date & Time 07/16/2024 11:20 AM Provider: Patti Posadas MD [facility] [place] ) Diet: Carb Consistent or DM2 and Heart Healthy Addtl Attending Provider Instructions: Follow-up with your primary care physician within a week time and likely you will need labs CBC/CMP/magnesium/phosphorus. You were evaluated for nausea, vomiting, abdominal pain, elevated liver enzymes in the setting of nitrofurantoin use. Avoid nitrofurantoin in future. Follow-up with GI physician in 2 to 4 weeks time upon discharge, you will benefit from outpatient EUS for pancreatic duct dilatation noted while in hospital. Coordinate with your PCP office to set up the referral. You will need repeat liver function test in 1 to 2 weeks time upon discharge and periodic monitoring until liver function normalizes. Your statin is on hold while your liver function are elevated, coordinate with your PCP office as to the timing of resuming your statin. You will be discharged on oral antibiotic to complete course for UTI. Probiotics will be added. You are noted to have iron deficiency while in the hospital, you will be discharged on iron supplement. You will need repeat iron levels/vitamin B12 level/folate levels in about 3 months time, coordinate with your PCP office to set up the test. Follow-up with urology in 2 to 4 weeks time upon discharge. Take your medications as prescribed. Please make sure that you are able to get your medications today by calling your pharmacy before you leave the hospital so that your treatment continuity is not broken. Pending Studies at Discharge: Yes Stand-Alone Forms: [facility] [facility], Smoking Cessation Medications and DC Order Prescriptions: New cefdinir 300 mg capsule 300 mg PO BID 5 Days Qty: 10 0RF ferrous gluconate 324 mg (38 mg iron) Tablet 324 mg PO QAM Qty: 30 0RF Probiotic 3 billion cell capsule 3,000 mmu cells PO DAILY 7 Days Qty: 7 0RF Rx Instructions: administer with a meal Continued perphenazine 2 mg tablet 2 mg PO DAILY triamcinolone acetonide 0.5 % cream 1 applic topical DIRECTED lorazepam 0.5 mg tablet 0.5 mg PO DAILY PRN (Reason: ANXIETY ) diclofenac sodium [Arthritis Pain (diclofenac)] 1 % gel 2 g topical QID Rx Instructions: apply to single elbow, wrist or hand; for hand includes palm/fingers/back of hand vitamin E (dl, acetate) 180 mg (400 unit) capsule 180 mg PO DAILY turmeric-turmeric root extract 450-50 mg capsule 1 cap PO DIRECTED omega [id number]-fish oil 300 mg (120 mg- 180mg)-1,000 mg capsule 1 cap PO DIRECTED citalopram [Celexa] 10 mg tablet 10 mg PO DAILY Rx Instructions: 10 mg po qam. Both 10 mg and 20 mg celexa were filled 05/25 supply garlic 1,000 mg Capsule 1,000 mg PO UD Rx Instructions: 1000 mg po qam, filled 05/25 28 day supply phenazopyridine [Pyridium] 100 mg tablet 100 mg PO TID PRN (Reason: pain) Qty: 15 0RF metformin 500 mg tablet 500 mg PO BID fluticasone propion-salmeterol 250-50 mcg/dose blister with device 1 inh INHALATION BID carvedilol 6.25 mg tablet 6.25 mg PO BID albuterol sulfate 2.5 mg /3 mL (0.083 %) solution for nebulization 2.5 mg continuous nebulization Q4H PRN (Reason: Shortness Of Breath Or Wheezing) tizanidine 4 mg tablet 4 mg PO TID PRN (Reason: muscle spasms) aspirin 81 mg tablet,delayed release (DR/EC) 81 mg PO DAILY famotidine 20 mg tablet 20 mg PO BID mirtazapine 30 mg tablet 30 mg PO HS levothyroxine 125 mcg tablet 125 mcg PO DAILY montelukast 10 mg tablet 10 mg PO DAILY fluticasone propionate 50 mcg/actuation spray,suspension 2 spray INTRANASAL DAILY vitamin B complex Capsule 1 cap PO DAILY ascorbic acid (vitamin C) 1,000 mg tablet 1,000 mg PO DAILY cetirizine [Allergy Relief (cetirizine)] 10 mg tablet 10 mg PO DAILY doxepin 25 mg capsule 25 mg PO HS citalopram 20 mg tablet 20 mg PO DAILY Rx Instructions: 20 mg po daily. Both 10 and 20 mg doses were filled 05/25 supply hydroxyzine HCl 25 mg tablet 25 mg PO BID PRN (Reason: Anxiety) albuterol sulfate [Ventolin HFA] 90 mcg/actuation HFA aerosol inhaler 2 puff INHALATION Q6H PRN (Reason: Shortness Of Breath Or Wheezing) nifedipine 30 mg tablet extended release 30 mg PO 1200 Qty: 0 0RF midodrine 2.5 mg tablet 2.5 mg PO UD PRN (Reason: Hypotension) Qty: 0 0RF Rx Instructions: Every 8 hours PRN SBP <100 mmHg. Held atorvastatin 10 mg tablet 10 mg PO HS Hold Instructions: Resume on 07/22/24. Hold statin until liver function normalizes, follow up with your PCP for when to resume. Discharge Orders: Discharge Order (Routine); Ordered 07/11/24 Ordered By: Melba Morales Admission Data Admit Date/Time: 07/08/24 17:22 Attending Provider: Melba Morales Admit Provider: Haily Powell Primary Care Provider: Ptati Posadas Other Providers: Jose Luis Aiken; Kade Zheng.
[2024-07-11 13:47] VITALS: PULSE 83
== END 2024-07-11 14:26 | disposition home or self-care (01) | DRG 690 ==
LOC: ED 11:20 → SUATTDRO 17:22 → EDINP 17:22 → 4W 21:55

== ENCOUNTER 2024-09-09 14:35 | Inpatient (IN) ==
--- NOTE | 2024-09-09 15:01 | Emergency Department Note ---
Impression & Plan ADI (acute kidney injury), Weakness ED Provider Note NAME: WILNER KENNEDY AGE: 73 SEX: F : 1950 ARRIVES VIA: Ambulance INFORMANT: Patient ED PROVIDER(S): Asaf Galarza DO CHIEF COMPLAINT: Lightheaded HPI: Patient is a 73-year-old female with a past medical history of COPD, diabetes, hypertension, CKD who presents to the ER for feeling real weak lightheaded. Symptoms started earlier today. She denies any headache or change in vision. No chest pain or shortness of breath. Admits to dysuria which has been present for the past several months. No new belly pain. No nausea, vomiting, or diarrhea. ADDITIONAL HISTORY OBTAINED: Hair Specialist is present at bedside and notes that they have been working with her blood pressure medications and they just added on her nifedipine and blood pressures were in the 90s. Chronic Medical/Social Conditions Affecting Care: Per HPI PAST MEDICAL HISTORY:See Below PAST SURGICAL HISTORY:See Below FAMILY HISTORY:See Below SOCIAL HISTORY:See Below HOME MEDICATIONS:See Below ALLERGIES:See Below VITALS:See Below PHYSICAL EXAMINATION: GENERAL: Sitting up in bed, alert, well appearing, well nourished, no distress, non-toxic EYE EXAM: normal conjunctiva. PERRL and EOM's grossly intact. OROPHARYNX: no exudate, no erythema, lips, buccal mucosa, and tongue normal and mucous membranes are moist NECK: supple, no nuchal rigidity, no adenopathy, non-tender LUNGS: Clear to auscultation. Normal chest wall mechanics HEART: no murmurs, S1 normal and S2 normal ABDOMEN: abdomen soft, non-tender, normo-active bowel sounds, no masses, no rebound or guarding. UPPER EXTREMITIES: upper extremities are grossly normal. LOWER EXTREMITIES: No pitting edema. NEURO EXAM: Normal sensorium, cranial nerves II-XII intact, normal speech, no weakness of arms, no weakness of legs. No drift. Finger to nose intact. Gross sensation intact. MEDICAL DECISION MAKING: Patient is a 73-year-old female who presents ER for the above-stated complaint. IV was established and blood work was obtained. Labs show no significant leukocytosis. Mild anemia 11.2. BMP with a creatinine of 2.5 up from baseline of 1.0 at the end of June. LFTs and bilirubin were unremarkable. Lipase was normal. UA was clean. CT abdomen pelvis showed no acute pathology. Chest x- ray was unremarkable. She was given IV fluids. She was updated bedside discussed case with the hospitalist for further evaluation management treatment. Consults/Care Managements Discussions: Per [facility] Triage Nursing notes reviewed. Limited review of prior medical records performed Vital Signs: reviewed and remarkable for no significant abnormalities Differential diagnosis: Infection, dehydration, metabolic abnormality, hypo/hyperglycemia, electrolyte disturbance, anemia, hypoxia, cardiac sources, intracerebral event, toxicologic, neurologic, as well as other pathologies. ER treatment provided: See below Diagnostics interpreted by me include EKG and cardiac monitoring as listed below: -Cardiac Monitoring: An order was placed for continuous cardiac monitoring. The monitor shows a rate of 101 with sinus rhythm. -ECG: Sinus tachycardia rate of 104 Normal axis No PVCs QTc 478 -Laboratory studies:Interpreted by me as stated above in MDM and shown below. Imaging studies: Xrays: As interpreted by me: Portable AP upright 1 view of the chest shows no focal infiltrate CTs show: CT abdomen pelvis showed no acute pathology per radiology Procedures:none Critical Care: None Past Med/Surg History Problem List Weakness (Acute) ADI (acute kidney injury) (Acute) Paraganglioma Elevated LFTs (Acute) Bladder tumor Orthostatic hypotension (Acute) Neuroforaminal stenosis of lumbar spine Labile blood pressure CKD (chronic kidney disease), stage III Degenerative spondylolisthesis Lumbar stenosis with neurogenic claudication History of heart attack 1996- medically managed Diabetes mellitus, type II COPD (chronic obstructive pulmonary disease) Dyslipidemia Nocturnal hypoxemia 2L O2 HS Hypertension Hypothyroidism Anxiety and depression History of total left hip arthroplasty (~11/2019) Medical History ADI (acute kidney injury) Cervical pain Greater trochanteric bursitis of left hip Acid reflux well controlled Obesity Fatty liver Arthritis Degenerative disc disease Sciatica Thyroid enlarged no dysphagia Asthma mild, "well controlled and stable", rare inhaler use Surgical History History of colonoscopy History of left cataract surgery History of right cataract surgery History of right hip replacement History of hysterectomy History of hernia repair History of cardiac cath FOLLOWING HEART ATTACK, NO FINDINGS 1996 Family History Mother Family history of diabetes mellitus Aunt Family history of diabetes mellitus Son Family history of colon cancer Social History Smoking Status: Former smoker Tobacco Type: Cigarettes Second Hand Exposure: No; Do You Dip or Chew Tobacco: No; Hx Alcohol Use: No Hx Substance Use: No Preferred Language: Tajik Communication Ability: Effective Visual Impairment: No Limitations Hearing Ability: Normal Hospital Orderly Required: No Beliefs That Will Affect Care: None Current Living Situation: Alone Current Living Situation Comment: caregiver somedays current occupational status: retired Feels Safe at Home: Yes Safety Concerns Comment: office of aging is visiting her tomorrow regarding getting more help @ home Assistive Devices: CPAP, Nebulizer, Oxygen - at Night and Walker Allergies Allergies Allergy/AdvReac Type Severity Reaction Status Date / Time Sulfa (Sulfonamide Allergy Severe face Verified 09/09/24 17:07 Antibiotics) tongue lips swelling,HEADACHE codeine AdvReac Intermediate N/V Verified 09/09/24 17:07 amoxicillin AdvReac Mild YEAST Verified 09/09/24 17:07 INFECTION clavulanic acid AdvReac Mild YEAST Verified 09/09/24 17:07 INFECTION nitrofurantoin AdvReac Unknown liver Verified 09/09/24 17:07 [From Macrobid] injury Home Meds Home Medications Medication Instructions Recorded Confirmed albuterol sulfate 2.5 mg/3 mL 2.5 mg continuous nebulization Q4H 02/17/24 09/09/24 (0.083 %) solution for nebulization PRN Shortness Of Breath Or Wheezing albuterol sulfate 90 mcg/actuation 2 puff inhalation Q6H PRN 02/17/24 09/09/24 aerosol inhaler (Ventolin HFA) Shortness Of Breath Or Wheezing aspirin 81 mg tablet,delayed 81 mg PO QAM 02/17/24 09/09/24 release atorvastatin 10 mg tablet 10 mg PO QAM 02/17/24 09/09/24 carvedilol 6.25 mg tablet 6.25 mg PO BIDM 02/17/24 09/09/24 cetirizine 10 mg tablet (Allergy 10 mg PO QAM 02/17/24 09/09/24 Relief (cetirizine)) citalopram 20 mg tablet 20 mg PO DAILY 02/17/24 09/09/24 doxepin 25 mg capsule 25 mg PO QAM 02/17/24 09/09/24 famotidine 20 mg tablet 20 mg PO BID 02/17/24 09/09/24 metformin 500 mg tablet 500 mg PO BIDM 02/17/24 09/09/24 mirtazapine 30 mg tablet 30 mg PO HS 02/17/24 09/09/24 montelukast 10 mg tablet 10 mg PO DAILY 02/17/24 09/09/24 tizanidine 4 mg tablet 4 mg PO TID PRN muscle spasms 02/17/24 09/09/24 vitamin B complex 1 cap PO DAILY 02/17/24 09/09/24 diclofenac sodium 1 % topical gel 2 g topical QID PRN Pain 03/04/24 09/09/24 (Arthritis Pain (diclofenac)) lorazepam 0.5 mg tablet 0.5 mg PO HS PRN ANXIETY/SLEEP 03/04/24 09/09/24 omega-3 300 mg-dha 120 mg-epa 180 1 cap PO BID 03/04/24 09/09/24 mg-fish oil 1,000 mg capsule perphenazine 2 mg tablet 6 mg PO HS 03/04/24 09/09/24 turmeric 450 mg-turmeric root 1 cap PO DAILY 03/04/24 09/09/24 extract 50 mg capsule vitamin E (dl, acetate) 180 mg 180 mg PO BID 03/04/24 09/09/24 (400 unit) capsule citalopram 10 mg tablet (Celexa) 10 mg PO DAILY 06/06/24 09/09/24 garlic 1,000 mg capsule 1,000 mg PO QAM 06/06/24 09/09/24 levothyroxine 125 mcg tablet 137 mcg PO DAILYBB 09/09/24 09/09/24 magnesium oxide 400 mg PO DAILY 09/09/24 09/09/24 nifedipine 30 mg tablet,extended 30 mg PO QAM 09/09/24 09/09/24 release prazosin 5 mg capsule 5 mg PO BID 09/09/24 09/09/24 Previous Rx's Medication Instructions Recorded sodium chloride 1,000 mg soluble 1,000 mg PO BID #60 tabs 08/12/24 tablet Results & Data (ED) Vital Signs Vital Signs - 24 hr 09/09/24 14:41 09/09/24 14:41 09/09/24 14:45 Pulse Rate 105 H Pulse Rate from SpO2 Sensor Pulse Rhythm Regular Pulse Strength Normal Respiratory Rate 20 Respiratory Effort / Characteristics Non-Labored Spontaneous Respiratory Depth Normal Respiratory Pattern Regular Blood Pressure 109/72 109/72 109/72 Blood Pressure Mean 92 92 84 Blood Pressure Position Lying Pulse Oximetry 94 Oxygen Delivery Method Room Air Sepsis Recent Fever Within 48 Hours No Sepsis New/Unexplained Change in Mental Status No Sepsis Action Taken by Nursing No Action Required 09/09/24 14:45 09/09/24 14:51 09/09/24 15:00 Pulse Rate 104 H Pulse Rate from SpO2 Sensor Pulse Rhythm Pulse Strength Respiratory Rate 19 Respiratory Effort / Characteristics Respiratory Depth Respiratory Pattern Blood Pressure Blood Pressure Mean Blood Pressure Position Pulse Oximetry 93 Oxygen Delivery Method Room Air Room Air Sepsis Recent Fever Within 48 Hours Sepsis New/Unexplained Change in Mental Status Sepsis Action Taken by Nursing 09/09/24 16:20 09/09/24 16:45 09/09/24 17:00 Pulse Rate 101 H Pulse Rate from SpO2 Sensor Pulse Rhythm Pulse Strength Respiratory Rate Respiratory Effort / Characteristics Respiratory Depth Respiratory Pattern Blood Pressure 101/68 93/70 L Blood Pressure Mean 86 73 Blood Pressure Position Pulse Oximetry Oxygen Delivery Method Sepsis Recent Fever Within 48 Hours Sepsis New/Unexplained Change in Mental Status Sepsis Action Taken by Nursing 09/09/24 17:03 09/09/24 17:15 09/09/24 17:15 Pulse Rate 104 H 106 H Pulse Rate from SpO2 Sensor 105 H 98 H Pulse Rhythm Pulse Strength Respiratory Rate 17 16 Respiratory Effort / Characteristics Respiratory Depth Respiratory Pattern Blood Pressure 98/62 L Blood Pressure Mean 91 Blood Pressure Position Pulse Oximetry 93 92 Oxygen Delivery Method Sepsis Recent Fever Within 48 Hours Sepsis New/Unexplained Change in Mental Status Sepsis Action Taken by Nursing 09/09/24 17:24 09/09/24 17:30 09/09/24 17:30 Pulse Rate 106 H Pulse Rate from SpO2 Sensor 106 H Pulse Rhythm Pulse Strength Respiratory Rate 36 H Respiratory Effort / Characteristics Respiratory Depth Respiratory Pattern Blood Pressure 115/88 115/88 Blood Pressure Mean 106 106 Blood Pressure Position Pulse Oximetry 94 Oxygen Delivery Method Sepsis Recent Fever Within 48 Hours Sepsis New/Unexplained Change in Mental Status Sepsis Action Taken by Nursing 09/09/24 17:30 Pulse Rate 107 H Pulse Rate from SpO2 Sensor 102 H Pulse Rhythm Pulse Strength Respiratory Rate 21 Respiratory Effort / Characteristics Respiratory Depth Respiratory Pattern Blood Pressure Blood Pressure Mean Blood Pressure Position Pulse Oximetry 95 Oxygen Delivery Method Sepsis Recent Fever Within 48 Hours Sepsis New/Unexplained Change in Mental Status Sepsis Action Taken by Nursing Laboratory Data 09/09/24 14:47 09/09/24 14:47 Lab Results 09/09/24 09/09/24 Range/Units 14:47 16:37 WBC 9.38 (4.8-10.8) K/ul RBC 3.89 L (4.20-5.40) M/uL Hgb 11.2 L (12.0-16.0) g/dl Hct 33.7 L (37.0-47.0) % MCV 86.6 (80.0-100.0) fL MCH 28.8 (25.0-34.0) pg MCHC 33.2 (32.0-36.0) g/dL RDW Std Deviation 41.5 (36.4-46.3) fL RDW Coeff of Jennifer 13.2 (11.5-14.5) % Plt Count 257 (130-400) K/uL MPV 11.7 (9.4-12.4) fL Immature Gran % (Auto) 0.2 % Neut % (Auto) 66.0 % Lymph % (Auto) 19.8 % [place] % (Auto) 11.5 % Eos % (Auto) 2.1 % Baso % (Auto) 0.4 % Neut # (Auto) 6.18 (1.40-6.50) K/uL Lymph # (Auto) 1.86 (1.20-3.40) K/uL [place] # (Auto) 1.08 H (0.11-0.59) K/uL Eos # (Auto) 0.20 (0.00-0.50) K/uL Baso # (Auto) 0.04 (0.00-0.20) K/uL Immature Gran # (Auto) 0.02 (0.01-0.20) K/uL Sodium 134 L (136-145) mmol/L Potassium 3.8 (3.5-5.1) mmol/L Chloride 97 L (98-107) mmol/L Carbon Dioxide 27 (21-32) mmol/L Anion Gap 10 (3-11) BUN 30 H (6-23) mg/dl Creatinine 2.51 H (0.6-1.2) mg/dl Est Cr Clr Drug Dosing 21.0 ml/min eGFR 19.59 BUN/Creatinine Ratio 12.0 (10-20) Glucose 161 H (70-99(Fasting)) mg/dl Calcium 9.5 (8.6-10.3) mg/dl Total Bilirubin 0.3 (0.2-1.0) mg/dl AST 16 (13-39) U/L ALT 12 (7-52) U/L Alkaline Phosphatase 106 H (34-104) U/L Total Protein 6.9 (6.0-8.3) gm/dl Albumin 3.9 (3.4-5.0) gm/dl Globulin 3.0 (2.5-4.0) gm/dl Albumin/Globulin Ratio 1.3 (0.9-2) Lipase 37 (11-82) U/L Urine Color Yellow Urine Appearance Cloudy A (Clear) Urine pH 5.0 (4.5-7.5) Ur Specific [place] 1.013 (1.000-1.030) Urine Protein 1+ H (Negative) Urine Glucose (UA) Negative (Negative) Urine Ketones Trace H (Negative) Urine Blood Negative (Negative) Urine Nitrite Negative (Negative) Urine Bilirubin Negative (Negative) Urine Urobilinogen Negative (Negative) Ur Leukocyte Esterase Negative (Negative) Urine WBC (Auto) 0-5 (0-5) /hpf Urine RBC (Auto) 0-2 (0-2) /hpf U Hyaline Cast (Auto) 0-2 (0-2) /lpf U Epithel Cells (Auto) 3-5 H (0-2) /hpf Urine Bacteria (Auto) None Seen (None Seen) Administered Medications Sodium Chloride (Nss) 1,000 mls @ 80 mls/hr IV .[id number] EROS Stop: 09/10/24 17:59 Last Admin: 09/09/24 18:19 Dose: 80 mls/hr Documented By: NJM Discontinued Medications Bisacodyl (Bisacodyl 5 Mg Tabec) 5 mg PO NOW ONE Stop: 09/09/24 19:27 Last Admin: 09/09/24 20:39 Dose: Not Given Documented By: KMS Cyclobenzaprine HCl (Cyclobenzaprine Hcl 5 Mg Tab) 5 mg PO NOW STA Stop: 09/09/24 17:53 Last Admin: 09/09/24 18:18 Dose: 5 mg Documented By: JANEL Sodium Chloride (Nss) 1,000 mls @ 999 mls/hr IV .Q1H1M ONE Stop: 09/09/24 16:40 Last Infusion: 09/09/24 18:22 Dose: Infused Documented By: Admin: 09/09/24 16:35 Dose: 999 mls/hr Documented By: JANEL Lidocaine (Lidocaine 5% 1 Patch) 1 patch TD NOW STA Stop: 09/09/24 17:53 Last Admin: 09/09/24 18:16 Dose: 1 patch Documented By: JANEL Imaging Data Radiologist's Impression: Chest X-Ray 09/09/24 14:58 XR chest 1V portable CLINICAL HISTORY: weak COMPARISON STUDY: 07/08/2024 FINDINGS: Heart size and pulmonary vasculature are normal. There are interval faint reticular and patchy opacities at the lung bases. No other consolidation or pleural effusion. No pneumothorax. IMPRESSION: Atelectasis versus early pneumonia in the lung bases. ACT 112: Negative or not required by law. Electronically signed by: Isma Shields M.D. 09/09/2024 3:21 PM Abdomen/Pelvis CT 09/09/24 15:39 EXAM: CT Abdomen and Pelvis Without Intravenous Contrast INDICATION: Pain and weakness TECHNIQUE: Axial computed tomography images of the abdomen and pelvis without intravenous contrast. Sagittal and coronal reformatted images were created and reviewed. This CT exam was performed using one or more of the following dose reduction techniques: automated exposure control, adjustment of the mA and/or kV according to patient size, and/or use of iterative reconstruction technique. COMPARISON: 06/06/2024 FINDINGS: Limitations: None. Lung bases: No abnormality noted. Pleural space: No visualized pleural effusion or pneumothorax. Heart: No abnormality noted. Mediastinum: No abnormality noted. ABDOMEN: Liver: Lack of intravenous contrast limits detection of some masses. No abnormality noted. Gallbladder and bile ducts: No calcified stones or surrounding fluid. No ductal dilation. Pancreas: No pancreatic mass, calcification, inflammation or ductal dilation noted. Spleen: No significant abnormality noted. Adrenals: No significant abnormality noted. Kidneys and ureters: There is new mild to moderate left hydroureteronephrosis. The right kidney appears normal. Stomach and bowel: Moderate amounts of stool in the colon and scattered left diverticula. No diverticulitis or obstruction. PELVIS: Appendix: No findings to suggest acute appendicitis. Bladder: Bladder mass there is a left bladder mass measuring 4.4 cm long by 2.3 cm AP by 1.7 cm transverse. No definite bladder stone. Reproductive: No abnormalities noted. ABDOMEN and PELVIS: Intraperitoneal space: No free air. No significant fluid collection. Bones/joints: There is new sclerosis of the L2 vertebra. Diffuse degenerative changes present. Bilateral hip prostheses. No acute fracture. No osseous destruction. Soft tissues: Fat-containing right inguinal hernia. Probable previous left inguinal hernia repair without recurrence. Vasculature: No abdominal aortic aneurysm. Lymph nodes: No pathologically enlarged lymph nodes. IMPRESSION: 1. 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 2. Moderate colonic stool and scattered left colonic diverticulosis. ACT 112: N/A Electronically signed by Nichelle Lopez 09-09-2024 4:30 PM Discharge Plan Visit Data Chief Complaint: Hypotension Stated Complaint: HYPOTENSION, DIZZINESS, BACK PAIN ED Provider: Asaf Galarza Discharge Problem: ADI (acute kidney injury), Weakness Patient Disposition: Admitted As Inpatient Discharge Instructions Interventions: ED Discharge Assessment Last Done: 09/09/24 20:19
[2024-09-09 15:20] LABS: Basophils # (auto) 0.04 K/uL (0.00-0.20); Basophils % (auto) 0.4 %; Eosinophils % (auto) 2.1 %; Hematocrit (blood only) 33.7 % (37.0-47.0); Hemoglobin 11.2 g/dl (12.0-16.0); Immature Granulocytes # (auto) 0.02 K/uL (0.01-0.20); Immature Granulocytes % (auto) 0.2 %; Lymphocytes # (auto) 1.86 K/uL (1.20-3.40); Lymphocytes % (auto) 19.8 %; Mean Corpuscular Hemoglobin 28.8 pg (25.0-34.0); Mean Corpuscular Hgb Conc 33.2 g/dL (32.0-36.0); Mean Corpuscular Volume 86.6 fL (80.0-100.0); Mean Platelet Volume 11.7 fL (9.4-12.4); Monocytes # (auto) 1.08 K/uL (0.11-0.59); Monocytes % (auto) 11.5 %; Neutrophils # (auto) 6.18 K/uL (1.40-6.50); Platelet Count 257 K/uL (130-400); RDW Coefficient of Variation 13.2 % (11.5-14.5); RDW Standard Deviation 41.5 fL (36.4-46.3); Red Blood Count 3.89 M/uL (4.20-5.40); White Blood Count 9.38 K/ul (4.8-10.8)
--- NOTE | 2024-09-09 15:22 | XRay Report ---
XR chest 1V portable CLINICAL HISTORY: weak COMPARISON STUDY: 07/08/2024 FINDINGS: Heart size and pulmonary vasculature are normal. There are interval faint reticular and pat katie opacities at the lung bases. No other consolidation or pleural effusion. No pneumothorax. IMPRESSION: Atelectasis versus early pneumonia in the lung bases. ACT 112: Negative or not required by law. Electronically signed by: Isma Shields M.D. 09/09/2024 3:21 PM
[2024-09-09 15:34] LABS: Albumin Globulin Ratio 1.3 (0.9-2); Albumin Level 3.9 gm/dl (3.4-5.0); Bilirubin,Total 0.3 mg/dl (0.2-1.0); Calcium 9.5 mg/dl (8.6-10.3); Potassium 3.8 mmol/L (3.5-5.1); Total Protein 6.9 gm/dl (6.0-8.3)
--- NOTE | 2024-09-09 16:30 | CT Scan Report ---
EXAM: CT Abdomen and Pelvis Without Intravenous Contrast INDICATION: Pain and weakness TECHNIQUE: Axial computed tomography images of the abdomen and pelvis without intravenous contrast. Sagittal and coronal reformatted images were created and reviewed. This CT exam was performed using one or more of the following dose reduction techniques: automated exposure control, adjustment of the mA and/or kV according to patient size, and/or use of iterative reconstruction technique. COMPARISON: 06/06/2024 FINDINGS: Limitations: None. Lung bases: No abnormality noted. Pleural space: No visualized pleural effusion or pneumothorax. Heart: No abnormality noted. Mediastinum: No abnormality noted. ABDOMEN: Liver: Lack of intravenous contrast limits detection of some masses. No abnormality noted. Gallbladder and bile ducts: No calcified stones or surrounding fluid. No ductal dilation. Pancreas: No pancreatic mass, calcification, inflammation or ductal dilation noted. Spleen: No significant abnormality noted. Adrenals: No significant abnormality noted. Kidneys and ureters: There is new mild to moderate left hydroureteronephrosis. The right kidney appears normal. Stomach and bowel: Moderate amounts of stool in the colon and scattered left diverticula. No diverticulitis or obstruction. PELVIS: Appendix: No findings to suggest acute appendicitis. Bladder: Bladder mass there is a left bladder mass measuring 4.4 cm long by 2.3 cm AP by 1.7 cm transverse. No definite bladder stone. Reproductive: No abnormalities noted. ABDOMEN and PELVIS: Intraperitoneal space: No free air. No significant fluid collection. Bones/joints: There is new sclerosis of the L2 vertebra. Diffuse degenerative changes present. Bilateral hip prostheses. No acute fracture. No osseous destruction. Soft tissues: Fat-containing right inguinal hernia. Probable previous left inguinal hernia repair without recurrence. Vasculature: No abdominal aortic aneurysm. Lymph nodes: No pathologically enlarged lymph nodes. IMPRESSION: 1. 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 2. Moderate colonic stool and scattered left colonic diverticulosis. ACT 112: N/A Electronically signed by Nichelle Lopez 09-09-2024 4:30 PM
[2024-09-09] MEDS: SODIUM CHLORIDE 0.9% 1,000 ML IV ONE (16:35)
[2024-09-09 16:52] LABS: Appearance Urine Cloudy (Clear); Bacteria Urine Automated None Seen (None Seen); Bilirubin Urine Negative (Negative); Blood Urine Negative (Negative); Cast Urine Automated 0-2 /lpf (0-2); Color Urine Yellow; Glucose Urine UA Negative (Negative); Ketones Urine Trace (Negative); Leukocyte Esterase Urine Negative (Negative); Nitrite Urine Negative (Negative); Protein Urine 1+ (Negative); RBC Urine Automated 0-2 /hpf (0-2); Specific Gravity Urine 1.013 (1.000-1.030); Urobilinogen Urine Negative (Negative); WBC Urine Automated 0-5 /hpf (0-5)
--- NOTE | 2024-09-09 17:34 | History & Physical Report ---
Date of Service September 09, 2024 Assessment & Plan (1) Hypotension: (2) Paraganglioma: (3) CKD (chronic kidney disease), stage III: Plan Ms. 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 #Hypotension #Pheochromocytoma/paraganglioma suspect medication induced; per Endocrinology instructions, patient has been weening off other blood pressure medications while starting prazosin BID for pheo treatment. Coreg and Nifedipine held; however, dose of nifedipine resumed today with resultant hypotension Hold tonight's dose of Prazosin BID, consider resuming in am Hold coreg and nifedpine IVF @ 80 consider small dose of coreg if tachycardic and pressure resolves it consider Endocrinology consult #ADI on CKD III #Bladder tumor, likely pheochromocytoma #Obstructive uropathy 2/[address] with left obstructive tumor Urology consulted Reported an appointment next Saturday for stent placement Cr at 2.5, uptrending NPO midnight and Urology consult in am #Back spasms suspect 2/2 tumor growth s/p one dose muscle relaxer schedule tylenol 1000mg q8h heat to back #DMTII SSI regimen #Hypothyroidism continue Levothyroxine at 137mcg #depression/anxiety resume home regimen #Seasonal allergies resume home regimen #Nocturnal hypoxia continue 2L qhs DVT PPX scds, hold asa 81 for possible stent Admit med tele Admission and Anticipated Discharge Date Admission Date: Time spent evaluating patient, direct bedside care, chart review, placing orders, interpretation of diagnostic studies, discussion with consultants, patient, and family members, as well as other required patient management activities is 75 minutes. History of Present Illness Chief Complaint: hypotension Primary Care Provider: Patti Posadas MD Ms. 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 Patient has been undergoing medication titration to control episodic hypertension with Endocrinology. Patient was started on prazosin BID and taken off coreg and nifedipine; however, today she was told to take a nifedipine, which prompted a drop in her BP. This scared her as her pressures were in the low 80s, prompting her to present to the ED. She reports that she has an appointment with Urology next week in [place] for a stent placement. She notes that in addition to her hypotension, she has been experiencing increasing back pain and spasms. She reports chronic dysuria. She denies fevers, chills, nausea, vomiting, or any other concerns. In the ED, vitals were notable for BP of 88-115, HR of low 100s and O2 sat of mid 90s on RA Imaging revealed Left bladder mass most certainly neoplastic with obstruction of the left ureter with mild to moderate hydroureteronephrosis. Labs with Cr 2.51 EKG from 08/24 with QTc 464 ED interventions: 2L NS : Patient to be admitted to med/tele for further evaluation and management of hypotension and ADI Allergies Allergy/AdvReac Type Severity Reaction Status Date / Time Sulfa (Sulfonamide Allergy Severe face Verified 09/09/24 17:07 Antibiotics) tongue lips swelling,HEADACHE codeine AdvReac Intermediate N/V Verified 09/09/24 17:07 amoxicillin AdvReac Mild YEAST Verified 09/09/24 17:07 INFECTION clavulanic acid AdvReac Mild YEAST Verified 09/09/24 17:07 INFECTION nitrofurantoin AdvReac Unknown liver Verified 09/09/24 17:07 [From Macrobid] injury Home Medications Medication Instructions Recorded Confirmed Type albuterol sulfate 2.5 mg/3 mL 2.5 mg continuous nebulization Q4H 02/17/24 09/09/24 History (0.083 %) solution for nebulization PRN Shortness Of Breath Or Wheezing albuterol sulfate 90 mcg/actuation 2 puff inhalation Q6H PRN 02/17/24 09/09/24 History aerosol inhaler (Ventolin HFA) Shortness Of Breath Or Wheezing aspirin 81 mg tablet,delayed 81 mg PO QAM 02/17/24 09/09/24 History release atorvastatin 10 mg tablet 10 mg PO QAM 02/17/24 09/09/24 History carvedilol 6.25 mg tablet 6.25 mg PO BIDM 02/17/24 09/09/24 History cetirizine 10 mg tablet (Allergy 10 mg PO QAM 02/17/24 09/09/24 History Relief (cetirizine)) citalopram 20 mg tablet 20 mg PO DAILY 02/17/24 09/09/24 History doxepin 25 mg capsule 25 mg PO QAM 02/17/24 09/09/24 History famotidine 20 mg tablet 20 mg PO BID 02/17/24 09/09/24 History metformin 500 mg tablet 500 mg PO BIDM 02/17/24 09/09/24 History mirtazapine 30 mg tablet 30 mg PO HS 02/17/24 09/09/24 History montelukast 10 mg tablet 10 mg PO DAILY 02/17/24 09/09/24 History tizanidine 4 mg tablet 4 mg PO TID PRN muscle spasms 02/17/24 09/09/24 History vitamin B complex 1 cap PO DAILY 02/17/24 09/09/24 History diclofenac sodium 1 % topical gel 2 g topical QID PRN Pain 03/04/24 09/09/24 History (Arthritis Pain (diclofenac)) lorazepam 0.5 mg tablet 0.5 mg PO HS PRN ANXIETY/SLEEP 03/04/24 09/09/24 History omega-3 300 mg-dha 120 mg-epa 180 1 cap PO BID 03/04/24 09/09/24 History mg-fish oil 1,000 mg capsule perphenazine 2 mg tablet 6 mg PO HS 03/04/24 09/09/24 History turmeric 450 mg-turmeric root 1 cap PO DAILY 03/04/24 09/09/24 History extract 50 mg capsule vitamin E (dl, acetate) 180 mg 180 mg PO BID 03/04/24 09/09/24 History (400 unit) capsule citalopram 10 mg tablet (Celexa) 10 mg PO DAILY 06/06/24 09/09/24 History garlic 1,000 mg capsule 1,000 mg PO QAM 06/06/24 09/09/24 History sodium chloride 1,000 mg soluble 1,000 mg PO BID #60 tabs 08/12/24 09/09/24 Rx tablet levothyroxine 125 mcg tablet 137 mcg PO DAILYBB 09/09/24 09/09/24 History magnesium oxide 400 mg PO DAILY 09/09/24 09/09/24 History nifedipine 30 mg tablet,extended 30 mg PO QAM 09/09/24 09/09/24 History release prazosin 5 mg capsule 5 mg PO BID 09/09/24 09/09/24 History Past Med/Surg History Problem List Paraganglioma Elevated LFTs (Acute) Bladder tumor Orthostatic hypotension (Acute) Neuroforaminal stenosis of lumbar spine Labile blood pressure CKD (chronic kidney disease), stage III Degenerative spondylolisthesis Lumbar stenosis with neurogenic claudication History of heart attack 1996- medically managed Diabetes mellitus, type II COPD (chronic obstructive pulmonary disease) Dyslipidemia Nocturnal hypoxemia 2L O2 HS Hypertension Hypothyroidism Anxiety and depression History of total left hip arthroplasty (~11/2019) Medical History ADI (acute kidney injury) Cervical pain Greater trochanteric bursitis of left hip Acid reflux well controlled Obesity Fatty liver Arthritis Degenerative disc disease Sciatica Thyroid enlarged no dysphagia Asthma mild, "well controlled and stable", rare inhaler use Surgical History History of colonoscopy History of left cataract surgery History of right cataract surgery History of right hip replacement History of hysterectomy History of hernia repair History of cardiac cath FOLLOWING HEART ATTACK, NO FINDINGS 1996 Family History Mother Family history of diabetes mellitus Aunt Family history of diabetes mellitus Son Family history of colon cancer Social History Smoking Status: Former smoker Tobacco Type: Cigarettes Second Hand Exposure: No; Do You Dip or Chew Tobacco: No; Hx Alcohol Use: No Hx Substance Use: No Preferred Language: Irish Communication Ability: Effective Visual Impairment: No Limitations Hearing Ability: Normal Supervisor [employer] Required: No Beliefs That Will Affect Care: None Current Living Situation: Alone Current Living Situation Comment: caregiver somedays current occupational status: retired Feels Safe at Home: Yes Safety Concerns Comment: office of aging is visiting her tomorrow regarding getting more help @ home Assistive Devices: CPAP, Nebulizer, Oxygen - at Night and Walker Review of Systems Review of Systems: Constitutional: (-) fever/chills, (-) recent loss of weight, (-) appetite changes, (-) night sweats. Head: (-) headache, (-) dizziness. Eye: (-) blurring of vision, (-) double vision, (-) redness. Ear: (-) hearing loss, (-) discharge, (-) vertigo Nose: (-) discharge, (-) bleeding, (-) congestion, (-) post nasal drip. Throat: (-) sore throat, (-) hoarseness of voice, (-) odynophagia. Cardiovascular: (-) chest pain, (-) palpitations, (-) syncope, (-) orthopnea, (- ) PND, (-) leg swelling. Respiratory: (-) shortness of breath, (-) cough, (-) wheezing, (-) hemoptysis. Neuro: (-) weakness in extremities, (-) numbness, (-) tingling, (-) tremor. Gastrointestinal: (-) belly pain, (-) belly distension, (-) nausea, (-) vomiting, (-) diarrhea, (-) constipation, (-) na, (-) hematemesis, (-) hematochezia, (-) bowel incontinence Genitourinary: (-) hematuria, (-) dysuria, (-) polyuria, (-) hesitancy, (-) freq uency, (-) urinary incontinence. Musculoskeletal: (-) myalgia, (-) arthralgia. Skin: (-) rashes. Endocrine: (-) heat/cold intolerance. Psychiatry: (-) depression, (-) hallucination. Physical Exam Physical Exam: GENERAL APPEARANCE: AxOx4, generally well-appearing, talkative woman, no acute distress. HEENT: NC, AT. MMM. EOMI, clear conjunctiva, oropharynx clear. NECK: Supple without lymphadenopathy. No stiffness or restricted ROM. HEART: Normal rate and regular rhythm, normal S1/S1, no m/r/g LUNGS: CTAB, moving air well. No crackles or wheezes are heard. ABDOMEN: Soft, nontender, nondistended with good bowel sounds heard. BACK: ++ Left CVAT, no obvious deformity. EXTREMITIES: Without cyanosis, clubbing or edema. NEUROLOGICAL: Grossly nonfocal. Alert and oriented, moving all 4 extremities. CN not formally tested but appear grossly intact. Skin: Warm and dry without any rash. Results & Data Results & Data Vital Signs (Past 12 Hours) Vital Signs Pulse Resp BP Pulse Ox O2 Del Method 09/09/24 16:20 101 H 09/09/24 15:00 93 Room Air 09/09/24 14:45 Room Air 09/09/24 14:45 105 H 20 109/72 94 Room Air Laboratory Results Short CBC 09/09/24 Range/Units 14:47 WBC 9.38 (4.8-10.8) K/ul Hgb 11.2 L (12.0-16.0) g/dl Hct 33.7 L (37.0-47.0) % Plt Count 257 (130-400) K/uL BMP 09/09/24 14:47 Sodium 134 L Potassium 3.8 Chloride 97 L Carbon Dioxide 27 BUN 30 H Creatinine 2.51 H Glucose 161 H Calcium 9.5 Liver Function 09/09/24 Range/Units 14:47 Total Bilirubin 0.3 (0.2-1.0) mg/dl AST 16 (13-39) U/L ALT 12 (7-52) U/L Alkaline Phosphatase 106 H (34-104) U/L Albumin 3.9 (3.4-5.0) gm/dl Urine 09/09/24 Range/Units 16:37 Urine Color Yellow Urine Appearance Cloudy A (Clear) Urine pH 5.0 (4.5-7.5) Ur Specific [place] 1.013 (1.000-1.030) Urine Protein 1+ H (Negative) Urine Glucose (UA) Negative (Negative) Medications Administered Home Medications Medication Instructions Recorded Confirmed Last Taken albuterol sulfate 2.5 mg/3 mL 2.5 mg continuous nebulization Q4H 02/17/24 09/09/24 Unknown (0.083 %) solution for nebulization PRN Shortness Of Breath Or Wheezing albuterol sulfate 90 mcg/actuation 2 puff inhalation Q6H PRN 02/17/24 09/09/24 Unknown aerosol inhaler (Ventolin HFA) Shortness Of Breath Or Wheezing aspirin 81 mg tablet,delayed 81 mg PO QAM 0909/09/24 09/09/24 release atorvastatin 10 mg tablet 10 mg PO QAM 02/17/24 09/09/24 09/09/24 carvedilol 6.25 mg tablet 6.25 mg PO BIDM 02/17/24 09/09/24 09/09/24 08:00 cetirizine 10 mg tablet (Allergy 10 mg PO QAM 02/17/24 09/09/24 09/09/24 Relief (cetirizine)) citalopram 20 mg tablet 20 mg PO DAILY 02/17/24 09/09/24 09/09/24 doxepin 25 mg capsule 25 mg PO QAM 02/17/24 09/09/24 09/09/24 famotidine 20 mg tablet 20 mg PO BID 02/17/24 09/09/24 09/09/24 08:00 metformin 500 mg tablet 500 mg PO BIDM 02/17/24 09/09/24 09/09/24 08:00 mirtazapine 30 mg tablet 30 mg PO HS 02/17/24 09/09/24 09/08/24 montelukast 10 mg tablet 10 mg PO DAILY 02/17/24 09/09/24 09/09/24 tizanidine 4 mg tablet 4 mg PO TID PRN muscle spasms 02/17/24 09/09/24 Unknown vitamin B complex 1 cap PO DAILY 02/17/24 09/09/24 09/09/24 diclofenac sodium 1 % topical gel 2 g topical QID PRN Pain 03/04/24 09/09/24 Unknown (Arthritis Pain (diclofenac)) lorazepam 0.5 mg tablet 0.5 mg PO HS PRN ANXIETY/SLEEP 03/04/24 09/09/24 Unknown omega-3 300 mg-dha 120 mg-epa 180 1 cap PO BID 03/04/24 09/09/24 09/09/24 mg-fish oil 1,000 mg capsule perphenazine 2 mg tablet 6 mg PO HS 03/04/24 09/09/24 09/08/24 turmeric 450 mg-turmeric root 1 cap PO DAILY 03/04/24 09/09/24 09/09/24 extract 50 mg capsule vitamin E (dl, acetate) 180 mg 180 mg PO BID 03/04/24 09/09/24 09/09/24 08:00 (400 unit) capsule citalopram 10 mg tablet (Celexa) 10 mg PO DAILY 06/06/24 09/09/24 09/09/24 garlic 1,000 mg capsule 1,000 mg PO QAM 06/06/24 09/09/24 09/09/24 sodium chloride 1,000 mg soluble 1,000 mg PO BID #60 tabs 08/12/24 09/09/24 09/09/24 08:00 tablet levothyroxine 125 mcg tablet 137 mcg PO DAILYBB 09/09/24 09/09/24 Unknown magnesium oxide 400 mg PO DAILY 09/09/24 09/09/24 09/09/24 nifedipine 30 mg tablet,extended 30 mg PO QAM 09/09/24 09/09/24 09/09/24 release prazosin 5 mg capsule 5 mg PO BID 09/09/24 09/09/24 09/09/24 08:00 Active Medications Generic Name Dose Route Start Last Admin Trade Name Freq PRN Reason Stop Dose Admin Sodium Chloride 1,000 mls @ 80 mls/hr 09/09/24 18:00 09/09/24 18:19 Nss IV 09/10/24 17:59 80 mls/hr .[id number] EROS Administration (1) Hypotension Hypotension type: unspecified hypotension type Qualified Code(s): I95.9 - Hyp otension, unspecified
[2024-09-09] MEDS: LIDOCAINE 5% 1 PATCH TD STA (18:16)
[2024-09-09] MEDS: CYCLOBENZAPRINE HCL 5 MG TAB PO STA (18:18)
[2024-09-09] MEDS: SODIUM CHLORIDE 0.9% 1,000 ML IV SCH (18:19)
[2024-09-09] MEDS ORDERED: GLUCOSE 40% GEL 15 GM TUBE PO PRN (20:19)
[2024-09-09] MEDS ORDERED: ALBUTEROL HFA 8 GM INHALER INH PRN (20:19)
[2024-09-09] MEDS ORDERED: POLYETHYLENE (MIRALAX) 17 GM PACK PO PRN (20:19)
[2024-09-09] MEDS ORDERED: CARBOHYDRATES FOR HYPOGLYCEMIA PO PRN (20:19)
[2024-09-09] MEDS ORDERED: GLUCAGON FOR INJ 1 MG VIAL SQ PRN (20:19)
[2024-09-09] MEDS ORDERED: LORazepam 0.5 MG TAB PO PRN (20:19)
[2024-09-09] MEDS ORDERED: DEXTROSE 50% 50 ML SYRINGE IV PRN (20:19)
[2024-09-09] MEDS ORDERED: ALBUTEROL 0.083% NEBU SOLN 3 ML VIAL INH PRN (20:19)
[2024-09-09] MEDS ORDERED: GLUCOSE 10 TAB/TUBE PO PRN (20:19)
[2024-09-09] MEDS: bisacodyL 5 MG TABEC PO ONE (20:39)
[2024-09-09 21:31] LABS: Creatinine Urine Random 115.4 mg/dl; Protein Creatinine Ratio Urine 0.3 (0-0.2); Total Protein Urine Random 31.3 mg/dl (0-11.9); Urine Chloride < 15 mmol/L; Urine Potassium 28.7 mmol/L; Urine Sodium 13 mmol/L
[2024-09-09] MEDS: ACETAMINOPHEN 500 MG TAB PO SCH (21:37)
[2024-09-09] MEDS: OMEGA-3 (PURIFIED FISH OIL) 1 GM CAP PO SCH (22:27)
[2024-09-09] MEDS: PERPHENAZINE 2 MG TAB PO SCH (22:31)
[2024-09-09] MEDS: MIRTAZAPINE TAB 15 MG TAB PO SCH (22:31)
[2024-09-09] MEDS: PRAZOSIN HCL 1 MG CAP PO SCH (22:32)
[2024-09-09] MEDS: DICLOFENAC SOD 1% GEL 100 GM TUBE EXT PRN (22:37)
[2024-09-09] MEDS: INSULIN ASPART PER UNIT CHARGE SC SCH (22:38)
[2024-09-09] MEDS: FLUTICASONE PROPIONATE NA SPR 16 GM BTL SCH (23:45)
[2024-09-10] MEDS: INSULIN ASPART PER UNIT CHARGE SC SCH (00:21)
[2024-09-10] MEDS: LEVOTHYROXINE SODIUM 137 MCG TABLET PO SCH (06:11)
--- OUTSIDE RECORDS SUMMARY | 2024-09-10 06:37 | External Medical Summary | Summary of Care ---
Author Name Unknown Organization [facility] Address [address] [facility] [place] [address] Phone [phone] Care Team Providers Care Ict Account Manager Name Role Phone Patti Posadas MD Primary Care Provider [phone] Reason for Visit * Reason Onset Date Comments Appointment 09/02/2024 Encounter Details Date Type Department Care Team (Late st Contact Info) Description 09/02/2024 Telephone Cardiology, [facility] [address] [place] [address] Walter Holt MD [address] [place] [address] Appointment Allergies Active Allergy Reactions Criticality Noted Date Comments Amoxicillin-Pot Clavulanate Other (Please comment) 01/14/2015 Severe Yeast infection Nitrofurantoin Liver complications (Please comment) 07/13/2024 See [facility] hospitalization dated 07/08/24 Morphine And Codeine Unknown 02/19/2003 Codeine makes her vomit Sulfa Antibiotics Edema face/lips/tongue,Oth er (Please comment) High 02/19/2003 Headache documented as of this encounter (statuses as of 09/08/2024) Medications PERPHENAZINE 2 MG PO TABS Take 1 Tablet by mouth at bedtime. 03/23/24 Pt states takes 3 tablets at bedtime 02/10/20 14 Active LORAzepam (ATIVAN) 0.5 MG Tablet Take 1 Tablet by mouth at bedtime as needed for Anxiety or Insomnia. 30 Tab 0 08/22/19 16 Active Kathleen-3 Fatty Acids (FISH OIL) 1200 MG CAPS [...] DAY 28 Tablet 11 03/18/20 23 Active Depend Underwear X-Large Use 3-4 depends [...] morning. 15 mL 3 12/13/19 24 Active Garlic 1000 MG Oral Capsule Take 1 Capsule by mouth in the morning. 90 Capsule 2 12/16/19 24 Active Levothyroxine Sodium 125 MCG Oral Tablet (Levoxyl)Indicatio ns:Acquired hypothyroidism TAKE ONE TABLET BY MOUTH EVERY DAY AT LEAST 30 MINUTES PRIOR TO BREAKFAST OR OTHER MEDICATIONS 90 Tablet 12/16/19 24 Active Montelukast Sodium 10 MG [...] mg OralHS, In the morning., Reported on 07/31/2024 metFORMIN HCl 500 MG Oral Tablet (Glucophage) TAKE ONE TABLET BY MOUTH TWICE DAILY with morning and evening meals. 180 Tablet 12/16/19 24 Active Famotidine 20 MG Oral Tablet (Pepcid) Take 1 Tablet by mouth in the morning and 1 Tablet before bedtime. 180 Tablet 12/16/19 24 Active Turmeric Curcumin 500 MG Oral Capsule Take 1 Capsule by mouth in the morning. Every morning.. 90 Capsule 12/16/19 24 Active Triamcinolone Acetonide 0.5 % External Cream (Aristocort)Indica tions:Painter Shipyard's papule Apply 0.5 g topically to affected area in the morning and 0.5 g before bedtime. To affected area.. 60 g 12/19/19 24 Active tiZANidine HCl 4 MG [...] 90 Tablet 3 04/24/20 24 Active Nystatin 778185 UNIT/GM External Powder (Nystop)Indication s:Candidal skin infection [...] 300 300 Each 12 06/26/19 25 Active Cefdinir 300 MG Oral Capsule (Omnicef) Take 1 Capsule by mouth in the morning and 1 Capsule before bedtime. 07/11/19 25 Active Midodrine HCl 2.5 MG Oral Tablet (Proamatine) TAKE ONE TABLET BY MOUTH TWICE DAILY NEEDED FOR orthostatic hypotension (less THAN 80/50) 60 Tablet 5 08/07/19 25 Active Fluticasone Propionate 50 MCG/ACT Nasal Suspension (Flonase)Indicatio ns:Chronic rhinitis INSTILL 2 SPRAYS INTO EACH NOSTRIL DAILY 48 g 3 07/18/19 24 025 Discontin ued(Refil l) documented as of this encounter (statuses as of 09/08/2024) Active Problems Problem Noted Date Diagnosed Date Type 2 diabetes mellitus wit h stage 3a chronic kidney disease, without long-term current use of insulin 07/16/2024 Labile blood pressure 11/14/2023 Orthostatic hypotension 09/02/2023 [...] disease 03/25/2018 Old [place] (myocardial infarction) 03/25/2018 Mild persistent asthma without [...] as of this encounter (statuses as of 09/08/2024) Resolved Problems Problem Noted Date Diagnosed Date Resolved Date Type 2 diabetes mellitus wit h stage 3a chronic kidney disease, without long-term current use of insulin 07/04/2023 08/01/2023 Recurrent major depressive disorder 08/31/2020 07/04/2023 Diabetes mellitus with stage 3 chronic kidney disease 04/25/2020 10/27/2020 Overview: Per CKD protocol COPD, severity to be determined 02/17/2020 02/25/2020 Overview: Per COPD GOLD Classification Severe obesity with body mas s index (BMI) of 35.0 to 39.9 with serious comorbidity 04/29/2017 Type 2 diabetes mellitus wit h stage [...] MWT Genetic Sleep Disorder Resea [facility] Other*[id number] 08/27/2011 01/18/2016 Routine general medical exam ination [...] as of this encounter (statuses as of 09/08/2024) Immunizations Name Administration Dates Next Due COVID-19 mRNA, LNP-s, No Pre serve, 2-Dose Series (Moderna) 05/02/2021,08/10/2020,07/13/2020 COVID-19, MRNA-LNP, PF, 30 M CG/0.3 mL, 12 YRS AND ABOVE, IM (PFIZER-Comirnaty) 03/09/2024 H1N1 2009 Influenza, IM 07/01/2009 Pneumococcal Conjugate Vacc, 13 Valent (Prevnar) 08/16/2014 Pneumococcal Polysaccharide PPV23 (Pneumovax) 08/27/2016,05/08/2011,03/21/2004 Season Influenza, Quad, PF, Adjuvanted, 65+ Yrs, IM (FLUAD) 02/17/2020 Seasonal Influenza Vac., MDV , IM, 0.5 mL (Fluzone) 02/16/2015,02/16/2014,09/12/2012,12/2010,05/19/2010,07/01/2009,04/29/20 07,03/21/2004,04/07/2003 Seasonal Influenza, High Dos e, Trivalent, PF, [...] Answer Date Recorded PHQ Adult Total Score 1 07/16/2024 Hunger Vital Sign Answer Date Recorded Within [...] No 03/09/2024 Does the household have a re gular [...] 03/09/2024 Transportation Needs Answer Date Record ed Do you have trouble getting a ride to medical visits or work? (Adult - for ages 18 years and over) Not on file 03/09/2024 Does your family have a hard [...] place to sleep at night? No 03/09/2024 Do you think you are at risk of becoming homeless? (Adult - for ages 18 years and over) Not on file 03/09/2024 Does your family worry about paying [...] ages 0-17 years) Not on file 03/09/2024 Food Insecurity Answer Date Recorded Within the past 12 months, y ou worried that your food would run out before you got the money to buy more. Never true 03/09/20 24 Within the past 12 months, t he food you bought just didn't last and you didn't have money to get more. Never true 03/09/2024 Do you need food for this week? 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 Patient ishaving surgery 09/16, Neha says that echo is not necessary before having surgery done but it wouldbe helpful. Told Neha that a provider would have to order the study, but even with an order it may be difficult to get patient in for echo before 09/15. Willing to go to [facility] for echo. Neha #: [phone] Please advise. * Telephone Encounter - Patti Posadas MD - 09/03/2024 9:03 AM EDT She is scheduled on sep 11 * Telephone Encounter - Walter Holt MD - 09/02/2024 2:40 PM EDT No personal openings prior to September 15. Provider away from office. Patient not previously seen If preoperative assessment required contact PCP * Telephone Encounter - Matheus Angel LPN - 09/02/2024 2:07 PM EDT Neha from [facility] called asking if any possibility that patients upcoming appointment can be moved up. Patient is having a bladder procedure (resection) on September 16 at [facility] for a mass on her bladder. Appointment with cardiology is currently scheduled for September 15. 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 Please advise. documented in this encounter Plan of Treatment Upcoming Encounters Date Type Department Care Team (Latest Contact Info) Description 09/11/2024 12:20 PM EDT Office Visit [facility] [address] [address] [phone] Patti Posadas MD [address] [place] [address] 09/15/2024 10:00 AM EDT Office Visit Cardiology, [facility] [address] [place] [phone] Walter Holt MD [address] [place] [address] 10/28/2024 12:00 PM EDT Office Visit Gastroenterology, [facility] [address] [place] [phone] Heriberto Cutler CRNP [address] [place] [address] 12/14/2024 11:45 AM EDT Hospital Encounter ENDO [facility], Endoscopy Room [facility] [address] [place] [phone] Anais Price MD [address] [place] [address] 12/14/2024 11:45 AM EDT - 12/14/2024 12:15 PM EDT Surgery ENDO [facility], Endoscopy Room [facility] [address] [place] [phone] Anais Price MD [address] [place] [address] COLONOSCOPY FLEXIBLE PROXIMAL DIAGNOSTIC 12/25/2024 11:20 AM EDT Office Visit Nephrology, [facility] [address] [place] [address] Dre Felix MD [address] [place] [address] 03/04/2025 2:30 PM EDT Office Visit [facility] [place] [address] [place] [phone] Salome Gordillo CRNP [address] [place] [address] Scheduled Procedures Name Priority Associated Diagnoses Date/Ti me COLONOSCOPY FLEXIBLE PROXIMAL DIAGNOSTIC Recall History of colon polyps 12/14/2024 11:45 AM EDT Health Maintenance Due Date Last Done Comments Alpha-1 Antitrypsin 12/20/1967 Fecal Occult Blood Test 1994 Sigmoidoscopy 1994 Adult Wellness Visit 03/26/2018 03/26/2017 Colonoscopy 01/28/2023 01/28/2018, 01/15, 10/13/2013, Additional history exists Mammogram 02/06/2023 02/06/2022, 01/16, 01/24/2022, Additional history exists Colorectal Cancer Screening 03/21/2024 Albumin/Creatinine Ratio 06/11/2024 023, 08/28/2022, 08/14/2021, Additional history exists COVID-19 Vaccine ( season) 2024 03/09/2024, 05/02/2021, 08/10/2020, Additional history exists TSH 12/24/2024 12/25/2023, 02/15, 08/28/2022, Additional history exists HbA1c 01/13/2025 07/16/2024, 12/15, 08/12/2023, Additional history exists GFR 01/28/2025 07/31/2024, 05/18, 03/23/2024, Additional history exists Diabetic Foot Exam 03/09/2025 03/09/2024, 0 03/04/2023, 02/07/2021, Additional history exists CKD PHOS USE SMARTSET 06650 03/23/2025 1012/2023, 08/12/2023, 03/12/2022, Additional history exists Depression Monitoring 07/16/2025 07/16/2024 O2 ASSESSMENT COMPLETED IN PAST YEAR FOR COPD 07/16/2025 07/16/2024 Diabetic Eye Exam 07/27/2025 07/27/2024, , 06/11/2023, Additional history exists B-12 07/31/2025 07/31/2024, 02/15, 08/28/2022, Additional history exists CKD HGB USE SMARTSET 14673 07/31/202507/31, 07/31/2024, 07/16/2024, Additional history exists Cologuard 03/20/2027 03/20/2024, 05/13/2017 Lipid Panel 06/11/2028 06/11/2023, 02/16, 02/22/2021, Additional history exists DTap/Tdap Vaccines (4 - Td or Tdap) 08/31/2030 08/31/2020, 05/19/2010, 07/20/2003 Hepatitis C Screening Completed 11/15/2014 RETIRED - COLONOSCOPY-EVERY 5 YRS AGES 18-100 Discontinued 01/28/2018, 01/28/2018, 10/13/2013, Additional history exists Lung Cancer Screening Completed 09/26/2021 , 09/20/2020, 09/18/2017 (Declined) Pneumococcal Vaccine: 50+ Years Completed 06/22/2023, 08/27/2016, 08/16/2014, Additional history exists Influenza Vaccine (FLU shot) [...] on patient's age to complete this topic Meningitis B Vaccine (Bexsero/Trumemba) Aged Out No longer eligible based on patient's age to complete this topic Zoster Vaccines Discontinued documented as of this encounter Medical Devices Not on filedocumented as of this encounter Care Teams Ict Account Manager Relationship Specialty Start Date End Date Patti Posadas MD [address] [facility] [place] [address] PCP - General Internal Medicine 08/17/24 documented as of this encounter
--- OUTSIDE RECORDS SUMMARY | 2024-09-10 06:37 | External Medical Summary | Summary of Care ---
Author Name Unknown Organization [facility] Address [address] [facility] [address] Phone [phone] Care Team Providers Care High Energy Forming Equipment Operator Name Role Phone Patti Posadas MD Primary Care Provider [phone] Reason for Visit * Reason Onset Date Comments Update 09/01/2024 Encounter Details Date Type Department Care Team (Late st Contact Info) Description [facility] [address] [place] [phone] Patti Posadas MD [address] [place] [address] [address] Update Allergies Active Allergy Reactions Criticality Noted Date Comments Amoxicillin-Pot Clavulanate Other (Please comment) 01/14/2015 Severe Yeast infection Nitrofurantoin Liver complications (Please comment) 07/13/2024 See [facility] hospitalization dated 07/08/24 Morphine And Codeine Unknown 02/19/2003 Codeine makes her vomit Sulfa Antibiotics Edema face/lips/tongue,Oth er (Please comment) High 02/19/2003 Headache documented as of this encounter (statuses as of 09/01/2024) Medications PERPHENAZINE 2 MG PO TABS Take 1 Tablet by mouth at bedtime. 03/23/24 Pt states takes 3 tablets at bedtime 02/10/20 14 Active LORAzepam (ATIVAN) 0.5 MG Tablet Take 1 Tablet by mouth at bedtime as needed for Anxiety or Insomnia. 30 Tab 0 08/22/19 16 Active Clinchco-3 Fatty Acids (FISH OIL) 1200 MG CAPS [...] DAILY 48 g 3 07/18/19 24 Active Depend Underwear X-Large Use 3-4 [...] 1 Tablet before bedtime. 180 Tablet 2 12/16/19 24 Active Turmeric Curcumin 500 MG Oral Capsule Take 1 Capsule by mouth in the morning. Every morning.. 90 Capsule 2 12/16/19 24 Active Triamcinolone Acetonide 0.5 % External Cream (Aristocort)Indica tions:Currency Machine Operator's papule Apply 0.5 g topically to affected area in the morning and 0.5 g before bedtime. To affected area.. 60 g 1 12/19/19 24 Active tiZANidine HCl 4 MG Oral Tablet (Zanaflex) Take 1 Tablet by mouth every 8 hours as needed for Muscle spasms. 90 Tablet 3 01/02/20 24 Active Fish Oil 1000 MG Oral Capsule TAKE ONE CAPSULE BY MOUTH TWICE DAILY 56 Capsule 11 02/18/20 24 Active Diclofenac Sodium 1 % External Gel (Voltaren) Apply 1 g topically to affected area in the morning and 1 g before bedtime. 100 g 3 03/09/20 24 Active Vitamin B Complex Oral Capsule TAKE ONE CAPSULE BY MOUTH EVERY DAY 28 Capsule 11 03/16/20 24 Active Vitamin E 180 MG [...] 90 Tablet 3 04/24/20 24 Active Nystatin 049809 UNIT/GM External Powder (Nystop)Indication s:Candidal skin infection [...] 80/50) 60 Tablet 5 08/07/19 25 Active documented as of this encounter (statuses as of 09/01/2024) Active Problems Problem Noted Date Diagnosed Date Type 2 diabetes mellitus wit h stage 3a chronic kidney disease, without long-term current use of insulin 07/16/2024 Labile blood pressure 11/14/2023 Orthostatic hypotension 09/02/2023 Moderate episode of recurrent major depressive d isorder 09/02/2023 DDD (degenerative disc disease), thoracic 2022 COPD, group B, by GOLD 2017 classification 12/12 /2022 Overview: Per COPD GOLD Classification Chronic kidney [...] disorder) 03/25/2018 Gastroesophageal reflux disease 03/25/2018 Old [place] (myocardial infarction) 03/25/2018 Mild persistent asthma without [...] as of this encounter (statuses as of 09/01/2024) Resolved Problems Problem Noted Date Diagnosed Date [...] MWT Genetic Sleep Disorder Resea [facility] Other*[id number] 08/27/2011 01/18/2016 Routine general medical exam ination [...] as of this encounter (statuses as of 09/01/2024) Immunizations Name Administration Dates Next Due COVID-19 [...] 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 * Telephone Encounter - Niyah Nguyen LPN - 09/01/2024 12:[address] Posadas, Received voice mail with update from NEIL Solomon from [facility] saw Dr Tejeda [facility] last week Had PET scan on 08/26- Showing mass on L side of bladder with some obstruction of L kidney which is causing her urinary retention Her PET scan also showed small lesion on her lumbar vertebra suspicious of metastatic disease She is scheduled for TURB on 09/16 and biopsy planned at this time to determine pathology of lesion. She may also require stent as well. She will have anitbiotics pre and post surgery She is scheduled to see Cardiology 09/15 prior to surgery Neha will continue to provide updates documented in this encounter Plan of Treatment Upcoming Encounters Date Type Department Care Team (Latest Contact Info) Description 09/11/2024 12:20 PM EDT Office Visit [facility] [address] [facility] [address] [place], [place] [phone] Patit Posadas MD [address] [facility] [place] [address] 09/15/2024 10:00 AM EDT Office Visit Cardiology, [facility] [address] [facility] [place] [place] [address] Walter Holt MD [address] [place] [address] 10/28/2024 12:00 PM EDT Office Visit [facility]enterology, [facility] [address] [facility] [place] [phone] Heriberto Cutler CRNP [address] [facility] [place] [place] [address] 12/14/2024 11:45 AM EDT Hospital Encounter ENDO [facility], Endoscopy Room [facility] [address] [facility] [place] [phone] Anais Price MD [address] [place] [address] 12/14/2024 11:45 AM EDT - 12/14/2024 12:15 PM EDT Surgery ENDO [facility], Endoscopy Room [facility] [address] [facility] [place] [phone] Anais Price MD [address] [place] [address] COLONOSCOPY FLEXIBLE PROXIMAL DIAGNOSTIC 12/25/2024 11:20 AM EDT Office Visit Nephrology, [facility] [address] [place] [address] Dre Felix MD [address] [place] [address] 03/04/2025 2:30 PM EDT Office Visit [facility] [address] [place] [phone] Salome Gordillo CRNP [address] [place] [address] Scheduled Procedures Name Priority Associated Diagnoses Date/Ti [...] Additional history exists CKD PHOS USE SMARTSET 68273 03/23/2025 10/0 12/2023, 08/12/2023, 03/12/2022, Additional history exists Depression Monitoring 07/16/2025 07/16/2024 O2 ASSESSMENT COMPLETED IN PAST YEAR FOR COPD 07/16/2025 07/16/2024 Diabetic Eye Exam 07/27/2025 07/27/2024, , 08/08/2021, Additional history exists B-12 07/31/2025 07/31/2024, 02/15, 08/28/2022, Additional history exists CKD HGB USE SMARTSET 47674 07/31/202507/31, 07/31/2024, 07/16/2024, Additional history exists Cologuard [...] filedocumented as of this encounter Care Teams High Energy Forming Equipment Operator Relationship Specialty Start Date End Date Patti Posadas MD [address] [place] [address] [address] PCP - General Internal Medicine 08/17/24 documented as of this encounter
--- OUTSIDE RECORDS SUMMARY | 2024-09-10 06:37 | External Medical Summary | Summary of Care ---
Author Name Unknown Organization [facility] Address [address] [facility] [place] [address] Phone [phone] Care Team Providers Care Chip Mixer Name Role Phone Patti Posadas MD Primary Care Provider Reason for Visit * Reason Onset Date Comments Appointment 09/02/2024 Encounter Details Date Type Department Care Team (Late st Contact Info) Description 09/02/2024 Telephone Cardiology, [facility] [address] [place] [address] Walter Holt MD [address] [place] [address] Appointment Allergies Active Allergy Reactions Criticality Noted Date Comments Amoxicillin-Pot Clavulanate Other (Please comment) 01/14/2015 Severe Yeast infection Nitrofurantoin Liver complications (Please comment) 07/13/[address] [facility] hospitalization dated 07/08/24 Morphine And Codeine Unknown 02/19/2003 Codeine makes her vomit Sulfa Antibiotics Edema face/lips/tongue,Oth er (Please comment) High 02/19/2003 Headache documented as of this encounter (statuses as of 09/02/2024) Medications PERPHENAZINE 2 MG PO TABS Take 1 Tablet by mouth at bedtime. 03/23/24 Pt states takes 3 tablets at bedtime 02/10/20 14 Active LORAzepam (ATIVAN) 0.5 MG Tablet Take 1 Tablet by mouth at bedtime as needed for Anxiety or Insomnia. 30 Tab 0 08/22/19 16 Active [place]-3 Fatty Acids (FISH OIL) 1200 MG CAPS [...] Triamcinolone Acetonide 0.5 % External Cream (Aristocort)Indica tions:Police Captain Senior's papule Apply 0.5 g topically to affected [...] 90 Tablet 3 04/24/20 24 Active Nystatin 697318 UNIT/GM External Powder (Nystop)Indication s:Candidal skin infection [...] as of this encounter (statuses as of 09/02/2024) Active Problems Problem Noted Date Diagnosed Date [...] disorder) 03/25/2018 Gastroesophageal reflux disease 03/25/2018 Old [place] (myocardial infarction) 03/25/2018 Mild persistent asthma without [...] as of this encounter (statuses as of 09/02/2024) Resolved Problems Problem Noted Date Diagnosed Date [...] and 6 MWT Genetic Sleep Disorder Resea [facility] Other*[id number] 08/27/2011 01/18/2016 Routine general medical exam ination [...] as of this encounter (statuses as of 09/02/2024) Immunizations Name Administration Dates Next Due COVID-19 [...] 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 Provider away from office. Patient not previously seen If preoperative assessment required contact PCP * Telephone Encounter - Matheus Angel LPN - 09/02/2024 2:07 PM EDT Neha from [facility] called asking if any possibility that patients upcoming appointment can be moved up. Patient is having a bladder procedure (resection) on September 16 at [place] for a mass on her bladder. Appointment with cardiology is currently scheduled for September 15. 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 Please advise. documented in this encounter Plan of Treatment Upcoming Encounters Date Type Department Care Team (Latest Contact Info) Description 09/11/2024 12:20 PM EDT [facility] [address] [place] [phone] Patti Posadas MD [address] [place] [address] 09/15/2024 10:00 AM EDT Office Visit Cardiology, [facility] [address] [facility] [place], [place] [address] Walter Holt MD [address] [place] [address] 10/28/2024 12:00 PM EDT Office Visit Gastroenterology, [facility] [address] [place] [phone] Heriberto Cutler CRNP [address] [place] [address] 12/14/2024 11:45 AM EDT Hospital Encounter ENDO [facility], Endoscopy Room [facility] [address] [facility] [place] [phone] Anais Price MD [address] [address] 12/14/2024 11:45 AM EDT - 12/14/2024 12:15 PM EDT Surgery ENDO [facility], Endoscopy Room [facility] [address] [place] [phone] Anais Price MD [address] [place] [address] COLONOSCOPY FLEXIBLE PROXIMAL DIAGNOSTIC 12/25/2024 11:20 AM EDT Office Visit Nephrology, Didier Soumya [address] [place] [address] Dre Felix MD [address] [place] [address] 03/04/2025 2:30 PM EDT Office Visit Sleep Disorders [facility]tr [facility] 132 [facility] [place] [phone] Salome Gordillo CRNP [address] [place] [address] Scheduled Procedures Name Priority Associated Diagnoses Date/Ti [...] Additional history exists CKD PHOS USE SMARTSET 33385 03/23/2025 10/0 12/2023, 08/12/2023, 03/12/2022, Additional history exists Depression Monitoring 07/16/2025 07/16/2024 O2 ASSESSMENT COMPLETED IN PAST YEAR FOR COPD 07/16/2025 07/16/2024 Diabetic Eye Exam 07/27/2025 07/27/2024, , 08/08/2021, Additional history exists B-12 07/31/2025 07/31/2024, 02/15, 08/28/2022, Additional history exists CKD HGB USE SMARTSET 99939 07/31/202507/31, 07/31/2024, 07/16/2024, Additional history exists Cologuard [...] filedocumented as of this encounter Care Teams Chip Mixer Relationship Specialty Start Date End Date Patti Posadas MD [address] [place] [address] [address] PCP - General Internal Medicine 08/17/24 documented as of this encounter
--- OUTSIDE RECORDS SUMMARY | 2024-09-10 06:37 | External Medical Summary | Summary of Care ---
Author Name Unknown Organization [facility] Address [address] [facility] [place] [address] Phone [phone] Care Team Providers Care Geology Professor Name Role Phone Patti Posadas MD Primary Care Provider [phone] Reason for Visit * Reason Onset Date Comments Appointment 09/02/2024 Encounter Details Date Type Department Care Team (Late st Contact Info) Description 09/02/2024 Telephone Cardiology, [facility] [address] [place] [address] Walter Holt MD [address] [place] [address] Appointment Allergies Active Allergy Reactions Criticality Noted Date Comments Amoxicillin-Pot Clavulanate Other (Please comment) 01/14/2015 Severe Yeast infection Nitrofurantoin Liver complications (Please comment) 07/13/2024 See [facility] hospitalization dated 07/08/24 Morphine And Codeine Unknown 02/19/2003 Codeine makes her vomit Sulfa Antibiotics Edema face/lips/tongue,Oth er (Please comment) High 02/19/2003 Headache documented as of this encounter (statuses as of 09/03/2024) Medications PERPHENAZINE 2 MG PO TABS Take 1 Tablet by mouth at bedtime. 03/23/24 Pt states takes 3 tablets at bedtime 02/10/20 14 Active LORAzepam (ATIVAN) 0.5 MG Tablet Take 1 Tablet by mouth at bedtime as needed for Anxiety or Insomnia. 30 Tab 0 08/22/19 16 Active [place]-3 Fatty Acids (FISH OIL) 1200 MG CAPS [...] Triamcinolone Acetonide 0.5 % External Cream (Aristocort)Indica tions:Formal Wear Rental Clerk's papule Apply 0.5 g topically to affected [...] 90 Tablet 3 04/24/20 24 Active Nystatin 367041 UNIT/GM External Powder (Nystop)Indication s:Candidal skin infection [...] as of this encounter (statuses as of 09/03/2024) Active Problems Problem Noted Date Diagnosed Date [...] disorder) 03/25/2018 Gastroesophageal reflux disease 03/25/2018 Old [place] (myocardial infarction) 03/25/2018 Mild persistent asthma without [...] as of this encounter (statuses as of 09/03/2024) Resolved Problems Problem Noted Date Diagnosed Date [...] 6 MWT Genetic Sleep Disorder Resea [facility] Other*[id number] 08/27/2011 01/18/2016 Routine general medical exam ination [...] as of this encounter (statuses as of 09/03/2024) Immunizations Name Administration Dates Next Due COVID-19 [...] 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 Patient is having a bladder procedure (resection) on September 16 at [place] for a mass on her bladder. Appointment with cardiology is currently scheduled for September 15. 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 Please advise. documented in this encounter Plan of Treatment Upcoming Encounters Date Type Department Care Team (Latest Contact Info) Description 09/11/2024 12:20 PM EDT Office Visit Family [facility], Meir Niet[address] [address] [phone] Patti Posadas MD [address] [place] [address] 09/15/2024 10:00 AM EDT Office Visit [facility]iology, [facility] [place] [address] Walter Holt MD [address] [place] [address] 10/28/2024 12:00 PM EDT Office Visit Gastroenterology, [facility] [address] [place] [phone] Heriberto Cutler CRNP [address] [place] [address] 12/14/2024 11:45 AM EDT Hospital Encounter ENDO [facility], Endoscopy Room [facility] [address] [place] [phone] Anais Price MD [address] [place] [address] 12/14/2024 11:45 AM EDT - 12/14/2024 12:15 PM EDT Surgery ENDO [facility], Endoscopy Room [facility] [address] [place] [phone] Anais Price MD [address] [place] [address] COLONOSCOPY FLEXIBLE PROXIMAL DIAGNOSTIC 12/25/2024 11:20 AM EDT [facility] [address] [place] [place] [address] Dre Felix MD [address] [place] [address] 03/04/2025 2:30 PM EDT Office Visit Sleep Disorders Ctr Eneida Feng [place] [address] [place] [phone] Salome Gordillo CRNP [address] [place] [address] Scheduled Procedures Name Priority Associated Diagnoses Date/Ti [...] Additional history exists CKD PHOS USE SMARTSET 36601 03/23/2025 10/0 12/2023, 08/12/2023, 03/12/2022, Additional history exists Depression Monitoring 07/16/2025 07/16/2024 O2 ASSESSMENT COMPLETED IN PAST YEAR FOR COPD 07/16/2025 07/16/2024 Diabetic Eye Exam 07/27/2025 07/27/2024, , 08/08/2021, Additional history exists B-12 07/31/2025 07/31/2024, 02/15, 08/28/2022, Additional history exists CKD HGB USE SMARTSET 70784 07/31/202507/31, 07/31/2024, 07/16/2024, Additional history exists Cologuard [...] filedocumented as of this encounter Care Teams Geology Professor Relationship Specialty Start Date End Date Patti Posadas MD [address] [place] [address] PCP - General Internal Medicine 08/17/24 documented as of this encounter
--- OUTSIDE RECORDS SUMMARY | 2024-09-10 06:37 | External Medical Summary | Summary of Care ---
Author Name Unknown Organization [facility] Address [address] [facility] [place] [address] Phone [phone] Care Team Providers Care Champagne Maker Name Role Phone Patti Posadas MD Primary Care Provider [phone] Reason for Visit * Reason Onset Date Comments Medication Refill 09/02/2024 Fluticasone Pr opionate 50 MCG/ACT Nasal Suspension (Flonase) Encounter Details Date Type Department Care Team (Late st Contact Info) Description 09/02/2024 Refill Pulmonary Medicine, [facility] [address] [place] [address] Nanda Glass CRNP [address] [place] [address] Chronic rhinitis* Allergies Active Allergy Reactions Criticality Noted Date Comments Amoxicillin-Pot Clavulanate Other (Please comment) 01/14/2015 Severe Yeast infection Nitrofurantoin Liver complications (Please comment) 07/13/2024 See [facility] hospitalization dated 07/08/24 Morphine And Codeine [...] Insomnia. 30 Tab 0 08/22/19 16 Active [place]-3 Fatty Acids (FISH OIL) 1200 MG CAPS [...] Triamcinolone Acetonide 0.5 % External Cream (Aristocort)Indica tions:Street Department Dispatcher's papule Apply 0.5 g topically to affected [...] CAPSULE BY MOUTH TWICE DAILY 56 Capsule 03/16/20 24 Active hydrALAZINE HCl 10 MG [...] 90 Tablet 3 04/24/20 24 Active Nystatin 593957 UNIT/GM External Powder (Nystop)Indication s:Candidal skin infection [...] INTO EACH NOSTRIL DAILY 48 g 3 09/03/19 25 Active Fluticasone Propionate 50 MCG/ACT Nasal [...] disease 03/25/2018 Old [place] (myocardial infarction) 03/25/2018 Mild persistent asthma without [...] Genetic Sleep Disorder Resea [facility] Other*[id number] 08/27/2011 01/18/2016 Routine general medical exam ination [...] 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 Not on file Not on file disability Not on file Not on file Not on file documented as of this encounter Miscellaneous Notes * Telephone Encounter - Nanda Glass CRNP - 09/02/2024 5:05 PM EDT Signed Prescriptions: Disp Refills Fluticasone Propionate 50 MCG/ACT Nasal Noel*48 g 3 Sig: INSTILL 2 SPRAYS INTO EACH NOSTRIL DAILY Authorizing Provider: NANDA GLASS * Telephone Encounter - Radha Choudhary LPN - 09/02/2024 12:43 PM EDTPending Prescriptions: Disp Refills Fluticasone Propionate 50 MCG/ACT Nasal Noel*48 g 3 Sig: INSTILL 2 SPRAYS INTO EACH NOSTRIL DAILY * Telephone Encounter - Daja Concepcion CPhT - 09/02/2024 12:04 PM EDT Did you pend patient's preferred pharmacy and medication before forwarding?yes Pharmacy: [facility]- [place] Pending Prescriptions: Disp Refills Fluticasone Propionate 50 MCG/ACT Nasal S*48 g 3 Sig: INSTILL 2 SPRAYS INTO EACH NOSTRIL DAILY Last Visit: 08/17/2020 (in office), Visit date not found (telemedicine) Next Visit: Visit date not found If no future appointments scheduled, and last appointment is greater than a year ago, please schedule patient for a follow-up appointment Last date the medication was ordered: 07/18/23 Is this request for a controlled substance?No Urine Drug Screen:No results found. However, due to the size of the patient record, not all encounters were searched. Please check Results Review for a complete set of results. Patient Phone Numbers Labs: Lab Results Component Value Date/Time CREAT 2.0 (H) 07/31/2024 01:33 PM CREAT 1.10 06/06/2024 12:00 AM CREAT 1.1 (H) 02/10/2020 09:24 AM POTASSIUM 4.8 07/31/2024 01:33 PM POTASSIUM 4.2 06/06/2024 12:00 AM POTASSIUM 3.4 (L) 02/10/2020 09:24 AM TSH 2.11 12/25/2023 08:55 AM TSH 1.17 04/01/2019 02:25 PM LDL 106 06/11/2023 03:09 PM LDL 64 03/12/2022 09:17 AM LDL 61 08/21/2019 11:13 AM ALT 23 07/31/2024 01:33 PM ALT 77 (H) 09/23/2018 03:46 PM HGBA1C 6.2 (H) 07/16/2024 12:37 PM HGBA1C 5.5 02/10/2020 09:24 AM * Telephone Encounter - Nae Leon LPN - 09/02/2024 11:58 AM EDT There is no medication requested in this encounter. * Telephone Encounter - Daja Concepcion CPhT - 09/02/2024 11:13 AM EDT Did you pend patient's preferred pharmacy and medication before forwarding?yes Pharmacy: [facility]- [place] No prescriptions requested or ordered in this encounter Last Visit: 08/17/2020 (in office), Visit date not found (telemedicine) Next Visit: Visit date not found If no future appointments scheduled, and last appointment is greater than a year ago, please schedule patient for a follow-up appointment Last date the medication was ordered: 07/18/23 Is this request for a controlled substance?No Urine Drug Screen:No results found. However, due to the size of the patient record, not all encounters were searched. Please check Results Review for a complete set of results. Patient Phone Numbers Labs: Lab Results Component Value Date/Time CREAT 2.0 (H) 07/31/2024 01:33 PM CREAT 1.10 06/06/2024 12:00 AM CREAT 1.1 (H) 02/10/2020 09:24 AM POTASSIUM 4.8 07/31/2024 01:33 PM POTASSIUM 4.2 06/06/2024 12:00 AM POTASSIUM 3.4 (L) 02/10/2020 09:24 AM TSH 2.11 12/25/2023 08:55 AM TSH 1.17 04/01/2019 02:25 PM LDL 106 06/11/2023 03:09 PM LDL 64 03/12/2022 09:17 AM LDL 61 08/21/2019 11:13 AM ALT 23 07/31/2024 01:33 PM ALT 77 (H) 09/23/2018 03:46 PM HGBA1C 6.2 (H) 07/16/2024 12:37 PM HGBA1C 5.5 02/10/2020 09:24 AM documented in this encounter Plan of Treatment Upcoming Encounters Date Type Department Care Team (Latest Contact Info) Description 09/11/2024 12:20 PM EDT [facility] [address] [facility] [place] [phone] Patti Posadas MD [address] [facility] [place] [address] 09/15/2024 10:00 AM EDT Office Visit [facility], [facility] [place] [address] Walter Holt MD [address] [place] [address] 10/28/2024 12:00 PM EDT Office Visit Gastroenterology, [facility] [address] [place] [phone] Heriberto Cutler CRNP [address] [place] [address] 12/14/2024 11:45 AM EDT Hospital Encounter [facility]O [facility], Endoscopy Room [facility] [address] [place] [phone] Anais Price MD [address] [place] [address] 12/14/2024 11:45 AM EDT - 12/14/2024 12:15 PM EDT Surgery ENDO [facility], Endoscopy Room [facility] [address] [place] [phone] Anais Price MD [address] [place] [address] COLONOSCOPY FLEXIBLE PROXIMAL DIAGNOSTIC 12/25/2024 11:20 AM EDT Office Visit Nephrology, Michael Do[place] [address] [place] [address] Dre Felix MD [address] [place] [address] 03/04/2025 2:30 PM EDT Office Visit Sleep Disorders Ctr Eneida Feng, [place] [address] [place] [phone] Nanda Glass CRNP [address] [place] [address] Scheduled Procedures Name Priority Associated Diagnoses Date/Ti [...] Additional history exists CKD PHOS USE SMARTSET 87593 03/23/2025 10/0 12/2023, 08/12/2023, 03/12/2022, Additional history exists Depression Monitoring 07/16/2025 07/16/2024 O2 ASSESSMENT COMPLETED IN PAST YEAR FOR COPD 07/16/2025 07/16/2024 Diabetic Eye Exam 07/27/2025 07/27/2024, , 08/08/2021, Additional history exists B-12 07/31/2025 07/31/2024, 02/15, 08/28/2022, Additional history exists CKD HGB USE SMARTSET 67804 07/31/202507/31, 07/31/2024, 07/16/2024, Additional history exists Cologuard [...] as of this encounter Visit Diagnoses Diagnosis Chronic rhinitis- Primary History of colon polyps Personal history of colonic polyps documented in this encounter Care Teams Champagne Maker Relationship Specialty Start Date End Date Patti Posadas MD [address] [facility] [place] [address] PCP - General Internal Medicine 08/17/24 documented as of this encounter
--- OUTSIDE RECORDS SUMMARY | 2024-09-10 06:38 | External Medical Summary | Continuity of Care Document ---
Author Name Unknown Organization [facility] [address] Address [address] [place], [place] [id number] Support Name Relationship Address Phone SABINA WOODRUFF Personal Relationship Unknown Unav ailable [id number] Date(s): 08/26/24 - 08/26/24 [facility] [address] [facility] [address] [facility] 1 [place], [place] [phone] Encounter Diagnosis Neoplasm of unspecified behavior of bladder(Final) - Gross hematuria(Final) - Discharge Disposition: Home or Self Care Attending Physician: MERCEDES Peng Mariia Referring Physician: MERCEDES Peng Mariia Encounter Type: Clinic Allergies, Adverse Reactions, Alerts Substance Criticality Severity Reaction Reaction Severity Status codeine Unable to assess criticality Moderate Vomiting Active sulfa drugs Unable to assess criticality Moderate Itch Active Medications Aspirin Low Dose 81 mg oral delayed release tablet Start: 08/20/24 11:15:00 AM EST, 28 each, 0 Refill(s), TAKE ONE TABLET BY MOUTH EVERY MORNING Start Date: 08/20/24 Status: Ordered Repeat number: 1 atorvastatin 10 mg oral tablet Start: 08/20/24 11:15:00 AM EST, 28 each, 0 Refill(s), TAKE ONE TABLET BY MOUTH EVERY MORNING Start Date: 08/20/24 Status: Ordered Repeat number: 1 citalopram 10 mg oral tablet Start: 08/20/24 11:16:00 AM EST, 28 each, 0 Refill(s), TAKE ONE TABLET BY MOUTH EVERY MORNING Start Date: 08/20/24 Status: Ordered Repeat number: 1 doxepin 25 mg oral capsule Start: 08/20/24 11:17:00 AM EST, 28 each, 0 Refill(s), TAKE ONE CAPSULE BY MOUTH EVERY MORNING Start Date: 08/20/24 Status: Ordered Repeat number: 1 famotidine 20 mg oral tablet Start: 08/20/24 11:17:00 AM EST, 56 each, 0 Refill(s), TAKE ONE TABLET BY MOUTH TWICE DAILY morning AND BEFORE BEDTIME Start Date: 08/20/24 Status: Ordered Repeat number: 1 Fish Oil 1000 mg oral capsule Start: 08/20/24 11:20:00 AM EST, 56 each, 0 Refill(s), TAKE ONE CAPSULE BY MOUTH TWICE DAILY Start Date: 08/20/24 Status: Ordered Repeat number: 1 fluticasone 50 mcg/inh nasal spray Start: 08/20/24 11:17:00 AM EST, 16 g, 0 Refill(s), USE 2 SPRAYS IN EACH NOSTRIL DAILY Start Date: 08/20/24 Status: Ordered Repeat number: 1 hydrALAZINE 10 mg oral tablet Start: 08/20/24 11:17:00 AM EST, 90 each, 0 Refill(s), TAKE 1 TABLET BY MOUTH THREE TIMES DAILY NEEDED FOR HYPERTENSION IF SBP IS MORE THAN 170/ Start Date: 08/20/24 Status: Ordered Repeat number: 1 levothyroxine 137 mcg (0.137 mg) oral tablet Start: 08/20/24 11:18:00 AM EST, 90 tab, 0 Refill(s) Start Date: 08/20/24 Status: Ordered Repeat number: 1 LORazepam 0.5 mg oral tablet Start: 08/20/24 11:18:00 AM EST, 28 each, 0 Refill(s), TAKE ONE TABLET BY MOUTH AT BEDTIME NEEDED Start Date: 08/20/24 Status: Ordered Repeat number: 1 LORazepam 1 mg oral tablet Start: 08/20/24 11:16:00 AM EST, 1 tab, 0 Refill(s) Start Date: 08/20/24 Status: Ordered Repeat number: 1 metFORMIN 500 mg oral tablet Start: 08/20/24 11:18:00 AM EST, 56 each, 0 Refill(s), TAKE ONE TABLET BY MOUTH TWICE DAILY WITH MORNING & EVENING MEALS Start Date: 08/20/24 Status: Ordered Repeat number: 1 mirtazapine 30 mg oral tablet Start: 08/20/24 11:19:00 AM EST, 28 each, 0 Refill(s), TAKE ONE TABLET BY MOUTH AT BEDTIME Start Date: 08/20/24 Status: Ordered Repeat number: 1 montelukast 10 mg oral tablet Start: 08/20/24 11:19:00 AM EST, 28 each, 0 Refill(s), TAKE ONE TABLET BY MOUTH EVERY MORNING Start Date: 08/20/24 Status: Ordered Repeat number: 1 nystatin 100,000 units/g topical cream Start: 08/20/24 11:19:00 AM EST, 30 g, 0 Refill(s), APPLY TO THE AFFECTED AREA(S) TOPICALLY TWICE DAILY. USE UNDER THE breasts FOR TWO WEEKS Start Date: 08/20/24 Status: Ordered Repeat number: 1 perphenazine 2 mg oral tablet Start: 08/20/24 11:20:00 AM EST, 84 each, 0 Refill(s), TAKE THREE TABLETS BY MOUTH AT BEDTIME Start Date: 08/20/24 Status: Ordered Repeat number: 1 prazosin 1 mg oral capsule Start: 08/20/24 11:20:00 AM EST, 90 cap, 0 Refill(s) Start Date: 08/20/24 Status: Ordered Repeat number: 1 prazosin 5 mg oral capsule Start: 08/20/24 11:20:00 AM EST, 180 each, 0 Refill(s), TAKE 1 CAPSULE BY MOUTH TWICE DAILY Start Date: 08/20/24 Status: Ordered Repeat number: 1 unknown medication Start: 08/20/24 11:21:00 AM EST, See Instructions, Salt tablets 1000mg daily Start Date: 08/20/24 Status: Ordered Repeat number: 1 unlisted medication Start: 08/20/24 11:20:00 AM EST, 28 each, 0 Refill(s), TAKE ONE CAPSULE BY MOUTH EVERY MORNING Start Date: 08/20/24 Status: Ordered Repeat number: 1 Ventolin HFA 90 mcg/inh inhalation aerosol Start: 08/20/24 11:20:00 AM EST, 18 g, 0 Refill(s), INHALE TWO PUFFS BY MOUTH EVERY 6 HOURS NEEDEDFOR SHORTNESS OF BREATH AND cough Start Date: 08/20/24 Status: Ordered Repeat number: 1 Vitamin B Complex oral capsule Start: 08/20/24 11:21:00 AM EST, 28 each, 0 Refill(s), TAKE ONE CAPSULE BY MOUTH EVERY DAY Start Date: 08/20/24 Status: Ordered Repeat number: 1 Vitamin C 1000 mg oral tablet Start: 08/20/24 11:15:00 AM EST, 28 each, 0 Refill(s), TAKE ONE TABLET BY MOUTH EVERY DAY Start Date: 08/20/24 Status: Ordered Repeat number: 1 vitamin E 180 mg oral capsule Start: 08/20/24 11:21:00 AM EST, 56 each, 0 Refill(s), TAKE ONE CAPSULE BY MOUTH TWICE DAILY Start Date: 08/20/24 Status: Ordered Repeat number: 1 Problem List Condition Confirmation Course Effective Dates Status Health Status Informant COPD with exacerbation Confirmed Active Anxiety Confirmed Active Arthritis Confirmed Active Chronic kidney disease Confirmed Active Degenerative spondylolisthesis Confirmed Active Depression Confirmed Active Diabetes Confirmed Active Gross hematuria Confirmed Active GE reflux Confirmed Active Hypertension Confirmed Active Hypomagnesemia Confirmed Active Hypothyroid Confirmed Active Hypotension Confirmed Active Heart attack Confirmed Active Bladder tumor Confirmed Active Sleep apnea Confirmed Active Lumbar stenosis Confirmed Active Fatty liver Confirmed Active Syncope Confirmed Active Results Orders for Microbiology Reports Name Date Urine Culture (CULTURE, URINE) 08/26/24 Microbiology Reports TEST:Urine.Cx STATUS:Modified/Amended/Corrected BODY SITE: SOURCE:Urine COLLECTED DATE/TIME:08/26/24 11:00 AM Culture >100 THOUSAND COLONIES/ML Mixed Urogenital Lory NO STAPHYLOCOCCUS AUREUS ISOLATED No Pseudomonas isolated NO ENTEROCOCCUS ISOLATED Social History Social History Type Response Smoking Status Never smoked cigaret oliva Sex Female Sex Representation Female (finding) Patient Care team information Care Team Related Persons Name: SABINA WOODRUFF Insurance Providers Guarantor name: [employer] Plan Information #: 1 Payer: MEDICARE Member Number: [id number] Policy Number: NA Group Number: NA Health Plan Information #: 2 Payer: [facility] Member Number: [id number] Policy Number: NA Group Number: NA
--- OUTSIDE RECORDS SUMMARY | 2024-09-10 06:38 | External Medical Summary | Continuity of Care Document ---
Author Name Unknown Organization [facility] Address [address] [place] [address] [place] [phone] Support Name Relationship Address Phone SABINA WOODRUFF Personal Relationship Unknown Unav ailable Encounter [facility] [id number] Date(s): 08/28/24 - 08/28/[address] [facility] [address], [place] [address] [phone] Encounter Diagnosis Bladder tumor(Discharge Diagnosis) - 08/28/24 Gross hematuria(Discharge Diagnosis) - 08/28/24 Discharge Disposition: Home or Self Care Attending Physician: MD Tejeda Hong Encounter Type: Telehealth Allergies, Adverse Reactions, Alerts Substance Criticality Severity [...] Fatty liver Confirmed Active Syncope Confirmed Active Diagnosis Diagnosis Type Effective Dates Health Status Cl inical Service Informant Bladder tumor Discharge Diagnosis 08/28/24 Non-Specified Gross hematuria Discharge Diagnosis 08/28/24 Non-Specified Social History Social History Type Response Smoking Status Never smoked cigaret oliva Sex Female Sex Representation Female (finding) Patient Care team information Care Team Related Persons Name: SABINA WOODRUFF Insurance Providers Guarantor name: [employer] Health Plan Information #: 1 Payer: MEDICARE Member Number: [id number] Policy Number: NA Group Number: M[employer] Health Plan Information #: 2 Payer: [facility] Member Number: [id number] Policy Number: MJ Group Number: MJ
--- OUTSIDE RECORDS SUMMARY | 2024-09-10 06:38 | External Medical Summary | Summary of Care ---
Author Name Unknown Organization [facility] Address [address] [facility] [place] [address] Phone [phone] Care Team Providers Care Chemical Process Engineer Name Role Phone Patti Posadas MD Primary Care Provider [phone] Reason for Visit * Reason Onset Date Comments Update 09/01/2024 Encounter Details Date Type Department Care Team (Late st Contact Info) Description [facility] [address] [phone] Patti Posadas MD [address] [address] Update Allergies Active Allergy Reactions Criticality Noted Date Comments Amoxicillin-Pot Clavulanate Other (Please comment) 01/14/2015 Severe Yeast infection Nitrofurantoin Liver complications (Please comment) 07/13/2024 See [facility] hospitalization dated 07/08/24 Morphine And [...] Insomnia. 30 Tab 0 08/22/19 16 Active Robbins-3 Fatty Acids (FISH OIL) 1200 MG CAPS [...] Triamcinolone Acetonide 0.5 % External Cream (Aristocort)Indica tions:Welder 2Nd Shift's papule Apply 0.5 g topically to affected [...] 90 Tablet 3 04/24/20 24 Active Nystatin 228469 UNIT/GM External Powder (Nystop)Indication s:Candidal skin infection [...] disease 03/25/2018 Old [place] (myocardial infarction) 03/25/2018 Mild persistent asthma without [...] and 6 MWT Genetic Sleep Disorder Resea 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 on file [...] Solomon from [place] saw Dr Tejeda [facility] last week Had PET scan on [...] Description 09/11/2024 12:20 PM EDT Office Visit [facility] [address] [facility] [address] [place], [place] [phone] Patti Posadas MD [address] [facility] [place] [address] 09/15/2024 10:00 AM EDT Office Visit Cardiology, [facility] [address] [place] [address] Walter Holt MD [address] [place] [address] 10/28/2024 12:00 PM EDT Office Visit Gastroenterology, [facility] [address] [facility] [place] [phone] Heriberto Cutler CRNP [address] [facility] [place] [address] 12/14/2024 11:45 AM EDT Hospital Encounter ENDO [facility], Endoscopy Room [facility] [address] [facility] [place] [phone] Anais Price MD [address] [place] [address] 12/14/2024 11:45 AM EDT - 12/14/2024 12:15 PM EDT Surgery ENDO [facility], Endoscopy Room [facility] [address] [facility] [place] [phone] Anais Price MD [address] [place] [address] COLONOSCOPY FLEXIBLE PROXIMAL DIAGNOSTIC 12/25/2024 11:20 AM EDT Office Visit Nephrology, [facility] [address] [place] [address] Dre Felix MD [address] [place] [address] 03/04/2025 2:30 PM EDT Office Visit [facility] [place] [facility] [address] [place] [phone] Salome Gordillo CRNP [address] [place] [address] Scheduled Procedures Name Priority Associated Diagnoses Date/Ti [...] Additional history exists CKD PHOS USE SMARTSET 73472 03/23/2025 10/0 12/2023, 08/12/2023, 03/12/2022, Additional history exists Depression Monitoring 07/16/2025 07/16/2024 O2 ASSESSMENT COMPLETED IN PAST YEAR FOR COPD 07/16/2025 07/16/2024 Diabetic Eye Exam 07/27/2025 07/27/2024, , 08/08/2021, Additional history exists B-12 07/31/2025 07/31/2024, 02/15, 08/28/2022, Additional history exists CKD HGB USE SMARTSET 83301 07/31/202507/31, 07/31/2024, 07/16/2024, Additional history exists Cologuard [...] filedocumented as of this encounter Care Teams Chemical Process Engineer Relationship Specialty Start Date End Date Patti Posadas MD [address] [address] PCP - General Internal Medicine 08/17/24 documented as of this encounter
--- OUTSIDE RECORDS SUMMARY | 2024-09-10 06:40 | External Medical Summary | Continuity of Care Document ---
Author Name Unknown Organization [facility] Address [address] [place] [phone] Support Name Relationship Address Phone SABINA WOODRUFF Personal Relationship Unknown Unav ailable [id number] Date[facility]s): 08/25/24 - 08/25/[address] [phone] Discharge Disposition: Home or Self Care Attending Physician: MD Gandhi Jan S Referring Physician: MD Gandhi Jan S Encounter Type: Outpatient Hospital Allergies, Adverse Reactions, Alerts Substance Criticality Severity [...] liver Confirmed Active Syncope Confirmed Active Results Radiology Reports * Exam Date Time Procedure Performing Provider Status 08/25/24 1:[address] Skull Base to Midthigh (NET) Rhea Salguero; Final Notes: (PET CT Skull Base to Midthigh (NET)) Reason For Exam: NET tumor PET CT Skull Base to Midthigh (NET) EXAMINATION: PET CT Skull Base to Midthigh (NET) CLINICAL HISTORY: Study requisition (verbatim): "NET tumor" Associated codes (verbatim): "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 OTHER STUDIES USED FOR CORRELATION: CT abdomen pelvis 07/08/2024. TECHNIQUE: Radiopharmaceutical: GA-68 DOTATATE 5.65 mCi IV, Use IV, 08/25/2024 12:15 PM, MET Uptake time: 60 minutes Field of view: skull vertex to thighs. Oral contrast: absent IV contrast: absent Dose: Total Reported Dose Length Product (DLP) = 2438 mGy*cm. FINDINGS: STUDY QUALITY: The study is technically adequate for diagnostic interpretation. HEAD/FACE: No abnormal uptake. There are no significant findings on localizing low-dose CT. NECK: No abnormal uptake. There are no significant findings on localizing low- dose CT. THORACIC NODES: There are mildly radiotracer avid lymph nodes in the chest likely secondary to reactive reactive response. For example: There is 1.0 cm AP window lymph node SUV max of 4.4. There is subcentimeter size right hilar lymph node SUV max of 3.45. There is subcentimeter size right axillary lymph node SUV max of 2.06. LUNGS/PLEURA: No abnormal uptake. There is 1.1 x 0.6 cm left upper lobe lingular region subpleural groundglass pulmonary opacity likely reactive in nature. There is stable 4 mm calcified granuloma inthe right middle lobe. CHEST/MEDIASTINUM/ESOPHAGUS: No abnormal uptake. There are no significant findings on localizing low-dose CT. HEART, CORONARIES, PERICARDIUM: No abnormal uptake. There are no significant coronary calcifications. HEPATOBILIARY: No abnormal uptake. There are multiple tiny calcified granulomas in the hepatic parenchyma. SPLEEN: No abnormal uptake. There are no significant findings on localizing low- dose CT. PANCREAS: No abnormal uptake. There are no significant findings on localizing low-dose CT. ADRENAL GLANDS: No abnormal uptake. There is 0.9 cm nodular thickening of the right adrenal gland. KIDNEYS/URETERS/BLADDER: No abnormal uptake. There is left hydroureter and hydroureter nephrosis. This finding is new as compared to the CT abdomen pelvis 07/08/2024. ABDOMINOPELVIC NODES: No abnormal uptake. There are no significant findings on localizing low-dose CT. BOWEL/PERITONEUM/MESENTERY: No abnormal uptake. There are no significant findings on localizing low-dose CT. PELVIC ORGANS: There is limited evaluation of urinary bladder due to lack of contrast. Further evaluation is limited by physiologic radiotracer pooling in the bladder cavity. There is 4.7 x 2.7 cm thickening of left lateral wall of the urinary bladder. BONES/SOFT TISSUES: There is 1.5 x 1.6 cm sclerotic region in the L2 SUV max of 9.57. There is sclerotic lesion is 5.[address] abdomen pelvis 07/08/2024 and new as compared to the CT 06/06/2024. Degenerative changes in the spine. There is stable posterior osteophytosis at the level of T12-L1. There is 5 mm sclerotic focus in the pedicle of T4 series 6 image 109 without radiotracer avidity can be secondary to benign bony island. 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 * Left hydroureter and hydronephrosis, new as compared to the CT abdomen pelvis 07/08/2024. 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 Whole-body bone scan is advised for better evaluation of sclerotic osseous metastatic disease. * Multiple nonacute incidental findings on CT, as described above. [place] Act 112: This study does not meet the requirements of [place] Act 112. Workstation ID: [id number] Final Dictated by:MD Tiwari Ghulam Dictated DT/TM:08/25/2024 5:11 Signed by:MD Tiwari Ghulam Signed (Electronic Signature):08/25/2024 5:10 p Social History Social History Type Response Smoking Status Never smoked cigaret oliva Sex Female Sex Representation Female (finding) Patient Care team information Care Team Related Persons Name: SABINA WOODRUFF Insurance Providers Guarantor name: [employer] Health Plan Information #: 1 Payer: MEDICARE Member Number: [id number] Policy Number: MJ Group Number: MJ Health Plan Information #: 2 Payer: MEDICARE Member Number: [id number] Policy Number: NA Group Number: MJ Health Plan Information #: 3 Payer: [employer] [facility] Member Number: MJ Policy Number: MJ Group Number: NA
--- OUTSIDE RECORDS SUMMARY | 2024-09-10 06:40 | External Medical Summary | Summary of Care ---
Author Name Unknown Organization [facility] Address [address] [facility] [place] [address] Phone [phone] Care Team Providers Care Small Order Cutter Name Role Phone Patti Posadas MD Primary Care Provider [phone] Reason for Visit * Reason Comments eRx-Medication Refill Encounter Details Date Type Department Care Team (Late st Contact Info) Description 07/08/2024 Refill Pulmonary Medicine, [facility] [address] [place] [address] Salome Gordillo CRNP [address] [place] [address] Chronic rhinitis Allergies Active Allergy Reactions Criticality Noted Date Comments Amoxicillin-Pot Clavulanate Other (Please comment) 01/14/2015 Severe Yeast infection Nitrofurantoin Liver complications (Please comment) 07/13/2024 See [facility] hospitalization dated 07/08/24 Morphine And Codeine Unknown 02/19/2003 Codeine makes her vomit Sulfa Antibiotics Edema face/lips/tongue,Oth er (Please comment) High 02/19/2003 Headache documented as of this encounter (statuses as of 08/28/2024) Medications PERPHENAZINE 2 MG PO TABS Take 1 Tablet by mouth at bedtime. 03/23/24 Pt states takes 3 tablets at bedtime 02/10/20 14 Active LORAzepam (ATIVAN) 0.5 MG Tablet Take 1 Tablet by mouth at bedtime as needed for Anxiety or Insomnia. 30 Tab 0 08/22/19 16 Active Underwood-3 Fatty Acids (FISH OIL) 1200 MG CAPS [...] Triamcinolone Acetonide 0.5 % External Cream (Aristocort)Indica tions:Clinical Transplant Coordinator's papule Apply 0.5 g topically to affected [...] 90 Tablet 3 04/24/20 24 Active Nystatin 959805 UNIT/GM External Powder (Nystop)Indication s:Candidal skin infection [...] as of this encounter (statuses as of 08/28/2024) Active Problems Problem Noted Date Diagnosed Date [...] disorder) 03/25/2018 Gastroesophageal reflux disease 03/25/2018 Old [place] (myocardial infarction) 03/25/2018 Mild persistent asthma without [...] as of this encounter (statuses as of 08/28/2024) Resolved Problems Problem Noted Date Diagnosed Date [...] and 6 MWT Genetic Sleep Disorder [facility] Other*[id number] 08/27/2011 01/18/2016 Routine general medical exam ination [...] as of this encounter (statuses as of 08/28/2024) Immunizations Name Administration Dates Next Due COVID-19 [...] No 03/09/2024 Does the household have a [facility] source of income? 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 file Not on file Not on file disability Not on file Not on file Not on file documented as of this encounter Miscellaneous Notes * Telephone Encounter - Ines Marin OSA - 08/28/2024 9:48 AM EDT Refused Prescriptions: Disp Refills Fluticasone Propionate 50 MCG/ACT Nasal Noel*48 g 3 Sig: USE 2 SPRAYS IN EACH NOSTRIL DAILYRefused By: INES MARIN for Refusal: Other (comment below) * Telephone Encounter - Josy Crews LPN - 07/08/2024 3:27 PM ESTPending Prescriptions: Disp Refills Fluticasone Propionate 50 MCG/ACT Nasal Noel*48 g 3 Sig: USE 2 SPRAYS IN EACH NOSTRIL DAILY * Telephone Encounter - Josy Crews LPN - 07/08/2024 3:25 PM EST Pt needs an appt for refills documented in this encounter Plan of Treatment Upcoming Encounters Date Type Department Care Team (Latest Contact Info) Description 09/11/2024 12:20 PM EDT [facility] [place] [address] [place] [phone] Patti Posadas MD [address] [place] [address] 09/15/2024 10:00 AM EDT Office Visit Cardiology, [facility] [address] [facility] [place] [address] Walter Holt MD [address] [place] [address] 10/28/2024 12:00 PM EDT Office Visit Gastroenterology, [facility] [address] [facility] [place] [address] Heriberto Cutler CRNP [address] [place] [address] 12/14/2024 11:45 AM EDT Hospital Encounter [facility] [place] [phone] Anais Price MD [address] [place] [address] 12/14/2024 11:45 AM EDT - 12/14/2024 12:15 PM EDT Surgery ENDO [facility], Endoscopy Room [facility] [address] [facility] [place] [phone] Anais Price MD [address] [place] [address] COLONOSCOPY FLEXIBLE PROXIMAL DIAGNOSTIC 12/25/2024 11:20 AM EDT Office Visit Nephrology, [facility] [address] [place] [address] Dre Felix MD [address] [place] [address] 03/04/2025 2:30 PM EDT Office Visit [facility] Disorders Ctr [place] [address] [place] [phone] Salome Gordillo CRNP [address] [place] [address] Scheduled Procedures Name Priority Associated Diagnoses Date/Ti [...] Additional history exists CKD PHOS USE SMARTSET 92342 03/23/2025 10/0 12/2023, 08/12/2023, 03/12/2022, Additional history exists Depression Monitoring 07/16/2025 07/16/2024 O2 ASSESSMENT COMPLETED IN PAST YEAR FOR COPD 07/16/2025 07/16/2024 Diabetic Eye Exam 07/27/2025 07/27/2024, , 08/08/2021, Additional history exists B-12 07/31/2025 07/31/2024, 02/15, 08/28/2022, Additional history exists CKD HGB USE SMARTSET 00109 07/31/202507/31, 07/31/2024, 07/16/2024, Additional history exists Cologuard [...] of this encounter Visit Diagnoses Diagnosis Chronic rhinitis History of colon polyps Personal history of colonic polyps documented in this encounter Care Teams Small Order Cutter Relationship Specialty Start Date End Date Patti Posadas MD [address] [address] PCP - General Internal Medicine 08/17/24 documented as of this encounter
--- OUTSIDE RECORDS SUMMARY | 2024-09-10 06:40 | External Medical Summary | Continuity of Care Document ---
Author Name Unknown Organization [facility] [address] Address [address] [place], [place] [id number] Support Name Relationship Address Phone SABINA WOODRUFF Personal Relationship Unknown Unav ailable [facility]counter [id number] Date(s): 08/24/24 - 08/24/24 [facility] [address] [facility] [address] [facility] [address] [place], [phone] Encounter Diagnosis Neoplasm of unspecified behavior of [...] liver Confirmed Active Syncope Confirmed Active Results Laboratory List Name Date Partial Thromboplastin Time (PTT) 5 Request to FAX Report (First Location) ( ACC NO TO BE FAXED) 08/24/24 Complete Blood Count w Differential (CBC ,DIFFH) 08/24/24 Comprehensive Metabolic Panel (COMP META B PANEL) 08/24/24 Partial Thromboplastin Time (PTT) 5 Prothrombin Time w/ INR (PROTIME WITH IN R) 08/24/24 Urine Analysis w/ Reflexed Microscopic. (URINE W/REFLEX MICR) 08/24/24 Most recent to oldest [Reference Range]: 1 2 eGFR CKD-EPI [>60 mL/min/1.73 m2] 33 mL/ min/1.73 m2 1 *LOW* (08/24/24 11:24 AM) Phone No [phone] (08/24/24 11:46 AM) Faxed on: 08/25/24 08:56 (08/24/24 11:46 AM) MPV [9.0-12.2 fL] 11.9 fL (08/24/24 11:24 AM) Immature Gran% 0.8 % (08/24/24 11:24 AM) Neut% 57.7 % (08/24/24 11:24 AM) Lymph% 25.4 % (08/24/24 11:24 AM) Dickson% 11.3 % (08/24/24 11:24 AM) Baso% 0.5 % (08/24/24 11:24 AM) Eos% 4.3 % (08/24/24 11 AM) Immat Gran, Abs [0-0.4 K/uL] 0.06 K/uL (08/24/24 11:24 AM) Neut, Abs [2.0-7.7 K/uL] 4.47 K/uL (08/24/24 11:24 AM) Lymph, Abs [1.0-3.4 K/uL] 1.96 K/uL (08/24/24 1124 AM) Dickson, Abs [0-1.0 K/uL] 0.87 K/uL (08/24/24 11:24 AM) Baso, Abs [0-0.1 K/uL] 0.04 K/uL (08/24/24 1124 AM) Eos, Abs [0-0.5 K/uL] 0.33 K/uL (08/24/24 11:24 AM) Type of Diff: AUTO *Unknown* (08/24/24) RDW [11.5-14.2 %] 13.6 % (08/24/24 11: AM) Anion Gap [5-14 mmol/L] 9 mmol/L (08/24/24 AM) Alb [3.5-5.0 g/dL] 4.4 g/dL (08/24/2424 AM) Alk Phos [38-126 unit/L] 101 unit/L (08/24/24 AM) ALT [<35 unit/L] 27 unit/L (08/24/24 AM) AST [15-46 unit/L] 27 unit/L (08/24/2424 AM) Bili (u) [NEG] PT REFUSED *Unknown* (08/24/24) BUN [7-20 mg/dL] 21 mg/dL *HI* (08/24/24 AM) Ca [8.4-10.2 mg/dL] 9.6 mg/dL (08/24/24 AM) Cl- [96-107 mmol/L] 102 mmol/L (08/24/24 AM) HCO3 [22-30 mmol/L] 28 mmol/L (08/24/24 AM) Cret [0.60-1.00 mg/dL] 1.64 mg/dL *HI* (08/24/24) Glu [74-106 mg/dL] 136 mg/dL *HI* (08/24/24) Hct [35-44 %] 36.4 % (08/24/24) Hgb [11.7-15.0 g/dL] 12.2 g/dL (08/24/24 AM) INR [0.9-1.1] 1.1 3 (08/24/24) K [3.5-5.1 mmol/L] 3.8 mmol/L (08/24/24) Ketones [NEG mg/dL] PT REFUSED mg/dL (08/24/24) Leuk Est [NEG] PT REFUSED 4 *Unknown* (08/24/24) MCH [28-33 pg] 29.9 pg (08/24/24) MCHC [32-36 g/dL] 33.5 g/dL (08/24/24) MCV [81-96 fL] 89.2 fL (08/24/24) Na [137-145 mmol/L] 139 mmol/L (08/24/24 AM) Nitrite (u) [NEG] PT REFUSED *Unknown* (08/24/24) Plts [150-350 K/uL] 279 K/uL (08/24/24 AM) PT [12.0-14.2 seconds] 14.1 seconds (08/24/24 AM) PTT [23-35 seconds] 26 seconds (08/24/24 1146 AM) ORDER ERROR seconds 5 (08/24/24) RBC [3.90-5.00 M/uL] 4.08 M/uL (08/24/24 AM) T Bili [0.2-1.3 mg/dL] 0.5 mg/dL (3/10/25 11:24 AM) Prot [6.3-8.2 g/dL] 8.0 g/dL (08/24/24 11:24 AM) Appear (u) PT REFUSED *Unknown* (08/24/24 11:24 AM) Color (u) PT REFUSED *Unknown* (08/24/24 11:24 AM) Glu (u) [NEG mg/dL] PT REFUSED mg/dL (08/24/24 11:24 AM) Hgb (u) [NEG] PT REFUSED *Unknown* (08/24/24 11:24 AM) pH (u) [5.0-8.0 unit] PT REFUSED unit (08/24/24 11:24 AM) Prot (u) [NEG mg/dL] PT REFUSED mg/dL (08/24/24 11:24 AM) Urobili [0.1-1.0 EU/dL] PT REFUSED EU/dL (08/24/24 11:24 AM) SG [1.005-1.030] PT REFUSED *Unknown* (08/24/24 11:24 AM) WBC [4.0-10.4 K/uL] 7.73 K/uL (08/24/24 11:24 AM) 1Result Comment: Testing Performed By: Dept of Pathology [facility] [address], [address] [place] [address], [place] [address] 2Result Comment: Testing Performed By: Dept of Pathology [facility] [address], [address] [place] [address], [place] [address] 3Result Comment: Suggested therapeutic range for low-intensity Coumadin therapy for venous thromboembolism is INR 2.0-3.0 (ex: atrial fibrillation, history of TIA/stroke). For high risk patients, the suggested therapeutic range is INR 2.5-3.5 (ex: mechanical prosthetic valves). Testing Performed By: Dept of Pathology [facility] [address], [address] [place], [place] [address]ner [place], [place] [address] 4Result Comment: Testing Performed By: Dept of Pathology [facility] [address] [place], [place] [address] [place], [place] [address] 5Result Comment: Testing Performed By: Dept of Pathology [facility] [address], [address] [place] [address], [place] [address] Orders for Microbiology Reports Name Date Urine Culture (CULTURE, URINE) 08/24/24 Microbiology Reports TEST:Urine.Cx STATUS:Auth (Verified) BODY SITE: SOURCE:Urine COLLECTED DATE/TIME:08/24/24 11:24 AM Culture REQUEST CREDITED CANCELLED BY MD/NURSING UNIT PATIENT UNABLE TO VOID Social History Social History Type Response Smoking Status Never smoked cigaret oliva Sex Female Sex Representation Female (finding) Patient Care team information Care Team Related Persons Name: SABINA WOODRUFF Insurance Providers Guarantor name: [employer] Plan Information #: 1 Payer: MEDICARE Member Number: [id number] Policy Number: NA Group Number: NA Health Plan Information #: 2 Payer: [facility] Member Number: [id number] Policy Number: MJ Group Number: [id number]
[2024-09-10 07:45] LABS: Hematocrit (blood only) 32.4 % (37.0-47.0); Hemoglobin 10.7 g/dl (12.0-16.0); Mean Corpuscular Hemoglobin 28.7 pg (25.0-34.0); Mean Corpuscular Volume 86.9 fL (80.0-100.0); Mean Platelet Volume 11.2 fL (9.4-12.4); Platelet Count 230 K/uL (130-400); RDW Coefficient of Variation 13.6 % (11.5-14.5); RDW Standard Deviation 42.9 fL (36.4-46.3); Red Blood Count 3.73 M/uL (4.20-5.40); White Blood Count 5.96 K/ul (4.8-10.8)
[2024-09-10 08:07] LABS: BUN Creatinine Ratio 12.6 (10-20); Calcium 8.7 mg/dl (8.6-10.3); Creatinine Clr Calc Pharmacy 27.3 ml/min; Magnesium 1.9 mg/dl (1.7-2.4); Phosphorus 3.9 mg/dl (2.5-4.9); Potassium 3.8 mmol/L (3.5-5.1)
[2024-09-10] MEDS: CITALOPRAM 20 MG TAB PO SCH ×2 (09:02→09:04)
[2024-09-10] MEDS: ATORVASTATIN 10 MG TAB PO SCH (09:02)
[2024-09-10] MEDS: CETIRIZINE HCL 10 MG TABLET PO SCH (09:02)
[2024-09-10] MEDS: FAMOTIDINE 20 MG TAB PO SCH (09:03)
[2024-09-10] MEDS: MAGNESIUM OXIDE 400 MG TAB PO SCH (09:03)
[2024-09-10] MEDS: DOXEPIN HCL 25 MG CAPSULE PO SCH (09:04)
[2024-09-10] MEDS: MONTELUKAST SODIUM 10 MG TABLET PO SCH (09:04)
--- NOTE | 2024-09-10 09:53 | Urology Consultation ---
<Statement entered by Jamal Vicente MD - 09/10/24 14:20> I have seen and discussed Ms Estela's case with MERCEDES Bernabe and agree with the above documentation. She has a known bladder mass and is scheduled to undergo transurethral resection of this next week at an outside facility. We suspect that her bladder mass may be hormonally active, behaving as a paraganglioma/pheochromocytoma. She has been working with endocrinology for close blood pressure control and preoperative management. Since her creatinine has improved this morning, I would hold off ureteral stent placement. She would be a fairly high risk candidate with anesthesia due to potential for labile blood pressures and I would worry that the ureteral stent could cause compression of her bladder tumor and potentially stimulate hormone secretion. If kidney function starts to worsen and requires drainage, I think she would be better served with a percutaneous nephrostomy tube. I think best case scenario for her would be to be discharged in time to get to [facility] for her transurethral resection of bladder tumor. No plan for urologic intervention at this point. -Jamal Vicente MD. Date of Consultation September 10, 2024 Assessment & Plan (1) Paraganglioma: (2) ADI (acute kidney injury): (3) Weakness: Plan 73-year-old female with known pheochromocytoma who was admitted due to weakness. Creatinine has improved from 2.[address] with previously known bladder mass and left hydronephrosis Patient was hypotensive on arrival to the ER Patient is now hypertensive, otherwise hemodynamically stable and afebrile Patient with weakness, left flank pain and dysuria No cultures are pending Patient has labile blood pressures due to her tumor and had following with outpatient endocrinology for management Patient scheduled for cystoscopy, TURP, possibly left retrograde pyelogram, left ureteral stent placement on 09/16/2024 at [facility]. Recommend: No urologic surgical intervention Other medical management and care per primary team Continue to monitor renal function-if worsens could transfer to [facility] for further care and possible earlier surgical intervention will follow History of Present Illness Attending Physician: Miles Sheldon MD History of Present Illness 73-year-old female with a past medical history of COPD, diabetes, hypertension, CKD who presents to the ER for feeling real weak lightheaded. Lightheadedness started earlier on 09/09/2024, she denied headache or change in vision having shortness of breathe. CT on 09/09/2024 showed a left bladder mass most certainly neoplastic with obstruction of the left ureter with mild to moderate hydroureteronephrosis Labs reviewed 09/10/2024: Creatinine 1.91 WBCs 5.96 Hemoglobin 10.7 Glucose 127 Patient has a known paraganglioma/pheochromocytoma and has been followed by our office as well as [facility] urology. He has also been following with Leonel Gandhi from endocrinology due to labile blood pressures. She is scheduled to have cystoscopy,TURP, possibly left retrograde pyelogram, left ureteral stent placement on 09/16/2024 at [facility]. She was resting comfortably in bed, baseline urinary symptoms which includes dysuria that has been present for several months, denies gross hematuria or incomplete bladder emptying. She admits to still feeling weak but denies fevers, chills, nausea, vomiting. She does have left flank pain with back spasms. Her caregiver was present on the phone and was present through the entire visit. Allergies Allergy/AdvReac Type Severity Reaction Status Date / Time Sulfa (Sulfonamide Allergy Severe face Verified 09/09/24 17:07 Antibiotics) tongue lips swelling,HEADACHE codeine AdvReac Intermediate N/V Verified 09/09/24 17:07 amoxicillin AdvReac Mild YEAST Verified 09/09/24 17:07 INFECTION clavulanic acid AdvReac Mild YEAST Verified 09/09/24 17:07 INFECTION nitrofurantoin AdvReac Unknown liver Verified 09/09/24 17:07 [From Macrobid] injury Home Medications Medication Instructions Recorded Confirmed Type albuterol sulfate 2.5 mg/3 mL 2.5 mg continuous nebulization Q4H 02/17/24 09/09/24 History (0.083 %) solution for nebulization PRN Shortness Of Breath Or Wheezing albuterol sulfate 90 mcg/actuation 2 puff inhalation Q6H PRN 02/17/24 09/09/24 History aerosol inhaler (Ventolin HFA) Shortness Of Breath Or Wheezing aspirin 81 mg tablet,delayed 81 mg PO QAM 02/17/24 09/09/24 History release atorvastatin 10 mg tablet 10 mg PO QAM 02/17/24 09/09/24 History carvedilol 6.25 mg tablet 6.25 mg PO BIDM 02/17/24 09/09/24 History cetirizine 10 mg tablet (Allergy 10 mg PO QAM 02/17/24 09/09/24 History Relief (cetirizine)) citalopram 20 mg tablet 20 mg PO DAILY 02/17/24 09/09/24 History doxepin 25 mg capsule 25 mg PO QAM 02/17/24 09/09/24 History famotidine 20 mg tablet 20 mg PO BID 02/17/24 09/09/24 History metformin 500 mg tablet 500 mg PO BIDM 02/17/24 09/09/24 History mirtazapine 30 mg tablet 30 mg PO HS 02/17/24 09/09/24 History montelukast 10 mg tablet 10 mg PO DAILY 02/17/24 09/09/24 History tizanidine 4 mg tablet 4 mg PO TID PRN muscle spasms 02/17/24 09/09/24 History vitamin B complex 1 cap PO DAILY 02/17/24 09/09/24 History diclofenac sodium 1 % topical gel 2 g topical QID PRN Pain 03/04/24 09/09/24 History (Arthritis Pain (diclofenac)) lorazepam 0.5 mg tablet 0.5 mg PO HS PRN ANXIETY/SLEEP 03/04/24 09/09/24 History omega-3 300 mg-dha 120 mg-epa 180 1 cap PO BID 03/04/24 09/09/24 History mg-fish oil 1,000 mg capsule perphenazine 2 mg tablet 6 mg PO HS 03/04/24 09/09/24 History turmeric 450 mg-turmeric root 1 cap PO DAILY 03/04/24 09/09/24 History extract 50 mg capsule vitamin E (dl, acetate) 180 mg 180 mg PO BID 03/04/24 09/09/24 History (400 unit) capsule citalopram 10 mg tablet (Celexa) 10 mg PO DAILY 06/06/24 09/09/24 History garlic 1,000 mg capsule 1,000 mg PO QAM 06/06/24 09/09/24 History sodium chloride 1,000 mg soluble 1,000 mg PO BID #60 tabs 08/12/24 09/09/24 Rx tablet levothyroxine 125 mcg tablet 137 mcg PO DAILYBB 09/09/24 09/09/24 History magnesium oxide 400 mg PO DAILY 09/09/24 09/09/24 History nifedipine 30 mg tablet,extended 30 mg PO QAM 09/09/24 09/09/24 History release prazosin 5 mg capsule 5 mg PO BID 09/09/24 09/09/24 History Patient History Medical History ADI (acute kidney injury) Cervical pain Greater trochanteric bursitis of left hip Acid reflux well controlled Obesity Fatty liver Arthritis Degenerative disc disease Sciatica Thyroid enlarged no dysphagia Asthma mild, "well controlled and stable", rare inhaler use Surgical History History of colonoscopy History of left cataract surgery History of right cataract surgery History of right hip replacement History of hysterectomy History of hernia repair History of cardiac cath FOLLOWING HEART ATTACK, NO FINDINGS 1996 Family History Mother Family history of diabetes mellitus Aunt Family history of diabetes mellitus Son Family history of colon cancer Social History Smoking Status: Former smoker Tobacco Type: Cigarettes Second Hand Exposure: No; Do You Dip or Chew Tobacco: No; Hx Alcohol Use: No Hx Substance Use: No Preferred Language: Yakut Communication Ability: Effective Visual Impairment: No Limitations Hearing Ability: Normal Terrazzo 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 Helper Required: No Beliefs That Will Affect Care: None Current Living Situation: Alone and Personal Care Facility Current Living Situation Comment: caregiver somedays current occupational status: retired Feels Safe at Home: Yes Safety Concerns Comment: office of aging is visiting her tomorrow regarding getting more help @ home Assistive Devices: Walker Review of Systems Constitutional: as per Subjective / HPI Genitourinary: as per Subjective / HPI Physical Exam Constitutional: no acute distress Chronically ill-appearing Respiratory: normal respiratory effort and able to speak in complete sentences Musculoskeletal: Extremities: extremities normal to inspection Psychiatric: Orientation: alert and oriented x 3 Results & Data Vital Signs (Past 12 Hours) Vital Signs Temp Pulse Pulse Resp BP Pulse Ox O2 Del Method 09/10/24 07:58 37 C 97 H 18 164/85 H 93 Room Air 09/10/24 07:50 101 H 03/27/25 04:27 36.9 C 102 H 18 127/79 92 Room Air 09/09/24 23:56 101 H 09/09/24 22:00 36.6 C 18 144/87 H 95 Room Air PG Care Time/CCT Total # of Minutes Spent Total Time Spent with Patient: Total time spent is greater than 50% in coordination of care (as documented) at patient's floor/unit and/or counseling patient: Coding Level of Care Code 16609 INT INP/OBS CARE 2/55MIN Diagnoses Paraganglioma D44.7 ADI (acute kidney injury) N17.9 Weakness R53.1
--- NOTE | 2024-09-10 14:36 | Hospitalist Progress Note ---
Date of Service September 10, 2024 Assessment & Plan (1) Labile blood pressure: Plan: History of pheochromocytoma/paraganglioma normal Under care of technology lead Labile blood pressure and currently on prazosin 10 mg 3 times daily Presented with low blood pressure on admission Blood pressure running around 119/74 Discussed with the technology lead and will continue with prazosin 10 mg 3 times daily Back spasms with back pain suspect 2/2 tumor growth s/p one dose muscle relaxer schedule tylenol 1000mg q8h CT of the abdomen pelvis showed left bladder mass with mild hydronephrosis Her renal angle is acutely tender and kidney function has been improving Pain is not controlled with Tylenol and she will be prescribed Percocet to control the pain Likely discharge tomorrow (2) Paraganglioma: (3) ADI (acute kidney injury): Plan: ADI on CKD III Bladder tumor, likely pheochromocytoma Obstructive uropathy 2/[address] with left obstructive tumor Urology consulted Reported an appointment next Saturday for stent placement Cr at 2.5, uptrending Appreciate urology input and recommendation- no acute intervention Creatinine has been decreasing She was advised to drink more fluid (4) CKD (chronic kidney disease), stage III: (5) Pheochromocytoma: (6) Diabetes mellitus, type II: (7) Hypertension: (8) Hypothyroidism: Plan Ms. 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 #Hypotension #Pheochromocytoma/paraganglioma suspect medication induced; per Endocrinology instructions, patient has been weening off other blood pressure medications while starting prazosin BID for pheo treatment. Coreg and Nifedipine held; however, dose of nifedipine resumed today with resultant hypotension Hold tonight's dose of Prazosin BID, consider resuming in am Hold coreg and nifedpine IVF @ 80 consider small dose of coreg if tachycardic and pressure resolves it consider Endocrinology consult #DMTII SSI regimen #Hypothyroidism continue Levothyroxine at 137mcg #depression/anxiety resume home regimen #Seasonal allergies resume home regimen #Nocturnal hypoxia continue 2L qhs DVT PPX scds, hold asa 81 for possible stent Admit med tele Admission and Anticipated Discharge Date Admission Date: September 09, 2024 Subjective 09/10/2024 The patient was seen and examined in medical telemetry unit She was admitted with hypotension with a history of pheochromocytoma and labile hypertension Has been complaining of pain in the left renal angle and noted to have a bladder tumor with obstructive uropathy Pain is not controlled with nonnarcotic pain medications and was provided a small dose of Percocet Likely discharge tomorrow if the pain is controlled Review of Systems Review of Systems: All systems reviewed and are unremarkable except as noted below Physical Exam Physical Exam: Lying in bed with acute distress due to pain in the left renal angle Constitutional: well developed, well nourished, + ill appearing and + morbidly obese Eyes: PERRL, conjunctivae normal, anicteric sclerae ENMT: external ear and nose normal, oropharynx normal Neck: trachea midline, no thyromegaly Respiratory: no respiratory distress Auscultation: lungs clear to auscultation bilaterally Cardiovascular: Rate/Rhythm: regular rate, regular rhythm and + tachycardic Heart Sounds: normal S1 and normal S2; no murmur Extremities: + edema ( trace edema bilaterally) Gastrointestinal (Abdomen): Inspection/Auscultation: normal bowel sounds; abdomen not distended Percussion/Palpation: + abdomen tender ( left renal angle) and abdomen soft Musculoskeletal: No acute arthritis involving any of the joints Neurologic: normal touch/pain/proprioception and moves all extremities; no focal motor deficits Lymphatic: no cervical or axillary lymphadenopathy Results & Data Results & Data Vital Signs (Past 12 Hours) Vital Signs Temp Pulse Pulse Resp BP Pulse Ox O2 Del Method 09/10/24 11:11 37 C 101 H 18 119/74 95 Room Air 09/10/24 07:58 37 C 97 H 18 164/85 H 93 Room Air 09/10/24 07:50 101 H 09/10/24 04:27 36.9 C 102 H 18 127/79 92 Room Air Laboratory Results Short CBC 09/09/24 09/10/24 Range/Units 14:47 07:29 WBC 9.38 5.96 (4.8-10.8) K/ul Hgb 11.2 L 10.7 L (12.0-16.0) g/dl Hct 33.7 L 32.4 L (37.0-47.0) % Plt Count 257 230 (130-400) K/uL BMP 09/09/24 09/10/24 14:47 07:29 Sodium 134 L 139 Potassium 3.8 3.8 Chloride 97 L 104 Carbon Dioxide 27 27 BUN 30 H 24 H Creatinine 2.51 H 1.91 H D Glucose 161 H 127 H Calcium 9.5 8.7 Liver Function 09/09/24 Range/Units 14:47 Total Bilirubin 0.3 (0.2-1.0) mg/dl AST 16 (13-39) U/L ALT 12 (7-52) U/L Alkaline Phosphatase 106 H (34-104) U/L Albumin 3.9 (3.4-5.0) gm/dl Urine 09/09/24 Range/Units 16:37 Urine Color Yellow Urine Appearance Cloudy A (Clear) Urine pH 5.0 (4.5-7.5) Ur Specific [place] 1.013 (1.000-1.030) Urine Protein 1+ H (Negative) Urine Glucose (UA) Negative (Negative) Medications Administered Current Inpatient Medications Acetaminophen (Acetaminophen 500 Mg Tab) 1,000 mg PO Q8H [facility] Stop: 10/09/24 20:18 Last Admin: 09/10/24 12:27 Dose: 1,000 mg Albuterol (Albuterol 0.083% Nebu Soln 3 Ml Vial) 2.5 mg INH Q4H PRN; Protocol PRN Reason: Shortness Of Breath Or Wheezing Stop: 10/09/24 20:18 Albuterol (Albuterol Hfa 8 Gm Inhaler) 2 puffs INH Q6H PRN PRN Reason: Shortness Of Breath Or Wheezing Stop: 10/09/24 20:18 Atorvastatin Calcium (Atorvastatin 10 Mg Tab) 10 mg PO QAM [facility] Stop: 10/10/24 08:59 Last Admin: 09/10/24 09:02 Dose: 10 mg Cetirizine HCl (Cetirizine Hcl 10 Mg Tablet) 10 mg PO QAM [facility] Stop: 10/10/24 08:59 Last Admin: 09/10/24 09:02 Dose: 10 mg Citalopram Hydrobromide (Citalopram 20 Mg Tab) 10 mg PO DAILY EROS Stop: 10/10/24 08:59 Last Admin: 09/10/24 09:04 Dose: 10 mg Citalopram Hydrobromide (Citalopram 20 Mg Tab) 20 mg PO DAILY EROS Stop: 10/10/24 08:59 Last Admin: 09/10/24 09:02 Dose: 20 mg Dextrose (Dextrose 50% 50 Ml Syringe) 25 - 50 ml IV UD PRN; Protocol PRN Reason: Hypoglycemia Protocol Stop: 10/09/24 20:18 Diclofenac Sodium (Diclofenac Sod 1% Gel 100 Gm Tube) 2 gm EXT QID PRN; Protocol PRN Reason: Pain Stop: 10/09/24 20:18 Last Admin: 09/10/24 06:31 Dose: 2 gm Doxepin HCl (Doxepin Hcl 25 Mg Capsule) 25 mg PO QAM EROS Stop: 10/10/24 08:59 Last Admin: 09/10/24 09:04 Dose: 25 mg Famotidine (Famotidine 20 Mg Tab) 20 mg PO DAILY EROS Stop: 10/10/24 08:59 Last Admin: 09/10/24 09:03 Dose: 20 mg Fish Oil ([place]-3 (Purified Fish Oil) 1 Gm Cap) 1 cap PO BID EROS Stop: 10/09/24 20:59 Last Admin: 09/10/24 09:01 Dose: Not Given Fluticasone Propionate (Fluticasone Propionate Na Spr 16 Gm Btl) 2 sprays NA DAILY EROS Stop: 10/09/24 17:59 Last Admin: 09/10/24 09:05 Dose: 2 sprays Glucagon (Glucagon For Inj 1 Mg Vial) 1 mg SQ UD PRN; Protocol PRN Reason: Hypoglycemia Protocol Stop: 10/09/24 20:18 Glucose (Glucose 40% Gel 15 Gm Tube) 15 - 30 gm PO UD PRN; Protocol PRN Reason: Hypoglycemia Protocol Stop: 10/09/24 20:18 Glucose (Glucose 10 Tab/Tube) 4 - 8 tab PO UD PRN; Protocol PRN Reason: Hypoglycemia Protocol Stop: 10/09/24 20:18 Sodium Chloride (Nss) 1,000 mls @ 80 mls/hr IV .[id number] EROS Stop: 09/10/24 17:59 Last Admin: 09/10/24 06:30 Dose: 80 mls/hr Insulin Aspart (Insulin Aspart Per Unit Charge) 0 units SC Q6 EROS Stop: 10/10/24 00:00 Last Admin: 09/10/24 13:10 Dose: Not Given Levothyroxine Sodium (Levothyroxine Sodium 137 Mcg Tablet) 137 mcg PO DAILYBB EROS Stop: 10/10/24 06:29 Last Admin: 09/10/24 06:11 Dose: 137 mcg Lorazepam (Lorazepam 0.5 Mg Tab) 0.5 mg PO HS PRN PRN Reason: ANXIETY/SLEEP Stop: 10/09/24 20:18 Magnesium Oxide (Magnesium Oxide 400 Mg Tab) 400 mg PO DAILY EROS Stop: 10/10/24 08:59 Last Admin: 09/10/24 09:03 Dose: 400 mg Mirtazapine (Mirtazapine Tab 15 Mg Tab) 30 mg PO HS EROS Stop: 10/09/24 20:59 Last Admin: 09/09/24 22:31 Dose: 30 mg Miscellaneous (Carbohydrates For Hypoglycemia ) 15 - 30 gm PO UD PRN PRN Reason: Hypoglycemia Protocol Stop: 10/09/24 20:18 Montelukast Sodium (Montelukast Sodium 10 Mg Tablet) 10 mg PO DAILY EROS Stop: 10/10/24 08:59 Last Admin: 09/10/24 09:04 Dose: 10 mg Oxycodone/Acetaminophen (Oxycodone/Acetaminophen 5mg/325mg Tab) 1 tab PO Q6H PRN PRN Reason: Pain Stop: 09/24/24 12:33 Perphenazine (Perphenazine 2 Mg Tab) 6 mg PO HS EROS Stop: 10/09/24 20:59 Last Admin: 09/09/24 22:31 Dose: 6 mg Polyethylene Glycol (Polyethylene (Miralax) 17 Gm Pack) 17 gm PO DAILY PRN PRN Reason: Constipation Stop: 10/09/24 20:18 Prazosin HCl (Prazosin Hcl 1 Mg Cap) 10 mg PO BID EROS Stop: 10/10/24 20:59
[2024-09-10] MEDS: oxyCODONE/ACETAMINOPHEN 5mg/325mg TAB PO PRN (19:16)
[2024-09-10] MEDS: PRAZOSIN HCL 1 MG CAP PO SCH (20:33)
[2024-09-11 08:05] LABS: Basophils # (auto) 0.03 K/uL (0.00-0.20); Basophils % (auto) 0.5 %; Eosinophils # (auto) 0.41 K/uL (0.00-0.50); Eosinophils % (auto) 6.6 %; Hematocrit (blood only) 35.1 % (37.0-47.0); Hemoglobin 11.8 g/dl (12.0-16.0); Immature Granulocytes # (auto) 0.01 K/uL (0.01-0.20); Immature Granulocytes % (auto) 0.2 %; Lymphocytes # (auto) 1.59 K/uL (1.20-3.40); Lymphocytes % (auto) 25.5 %; Mean Corpuscular Hemoglobin 29.4 pg (25.0-34.0); Mean Corpuscular Hgb Conc 33.6 g/dL (32.0-36.0); Mean Corpuscular Volume 87.3 fL (80.0-100.0); Mean Platelet Volume 11.4 fL (9.4-12.4); Monocytes # (auto) 0.62 K/uL (0.11-0.59); Monocytes % (auto) 9.9 %; Neutrophils # (auto) 3.58 K/uL (1.40-6.50); Neutrophils % (auto) 57.3 %; Platelet Count 245 K/uL (130-400); RDW Coefficient of Variation 13.4 % (11.5-14.5); RDW Standard Deviation 43.1 fL (36.4-46.3); Red Blood Count 4.02 M/uL (4.20-5.40); White Blood Count 6.24 K/ul (4.8-10.8)
[2024-09-11 08:15] LABS: BUN Creatinine Ratio 12.9 (10-20); Calcium 9.3 mg/dl (8.6-10.3); Creatinine Clr Calc Pharmacy 27.6 ml/min; Potassium 4.1 mmol/L (3.5-5.1)
[2024-09-11] MEDS: INSULIN ASPART PER UNIT CHARGE SC SCH (08:42)
[2024-09-11 11:35] VITALS: BP 150/88; PULSE 90; RESP 20; TEMP 98.2; O2SAT 91
--- NOTE | 2024-09-11 12:28 | Hospitalist Progress Note ---
Date of Service September 11, 2024 Assessment & Plan (1) Labile blood pressure: Plan: History of pheochromocytoma/paraganglioma normal Under care of ambulatory care nurse Labile blood pressure and currently on prazosin 10 mg 3 times daily Presented with low blood pressure on admission Blood pressure running around 119/74 Discussed with the ambulatory care nurse and will continue with prazosin 10 mg 3 times daily She will be given prazosin 10 mg 3 times daily with salt tablet for control of labile hypertension Her blood pressure has been going up and she will be discharged home on her other home medications as well Back spasms with back pain suspect 2/2 tumor growth s/p one dose muscle relaxer schedule tylenol 1000mg q8h CT of the abdomen pelvis showed left bladder mass with mild hydronephrosis Her renal angle is acutely tender and kidney function has been improving Pain is not controlled with Tylenol and she will be prescribed Percocet to control the pain Likely discharge tomorrow She was given Percocet 5 mg Q6 hourly as needed and also warned against possible side effect if misused and especially with addition to Xanax (2) Paraganglioma: (3) ADI (acute kidney injury): Plan: ADI on CKD III Bladder tumor, likely pheochromocytoma Obstructive uropathy 2/[address] with left obstructive tumor Urology consulted Reported an appointment next Saturday for stent placement Cr at 2.5, uptrending Appreciate urology input and recommendation- no acute intervention Creatinine has been decreasing She was advised to drink more fluid Was advised to keep appointment for cystoscopy and resection of the bladder tumor as scheduled as an outpatient (4) CKD (chronic kidney disease), stage III: (5) Pheochromocytoma: (6) Diabetes mellitus, type II: (7) Hypertension: (8) Hypothyroidism: (9) Neuroforaminal stenosis of lumbar spine: (10) Lumbar stenosis with neurogenic claudication: Plan Ms. 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 #Hypotension #Pheochromocytoma/paraganglioma suspect medication induced; per Endocrinology instructions, patient has been weening off other blood pressure medications while starting prazosin BID for pheo treatment. Coreg and Nifedipine held; however, dose of nifedipine resumed today with resultant hypotension Hold tonight's dose of Prazosin BID, consider resuming in am Hold coreg and nifedpine IVF @ 80 consider small dose of coreg if tachycardic and pressure resolves it consider Endocrinology consult #DMTII SSI regimen #Hypothyroidism continue Levothyroxine at 137mcg #depression/anxiety resume home regimen #Seasonal allergies resume home regimen #Nocturnal hypoxia continue 2L qhs DVT PPX scds, hold asa 81 for possible stent Admit med tele Admission and Anticipated Discharge Date Admission Date: September 09, 2024 Subjective 09/10/2024 The patient was seen and examined in medical telemetry unit She was admitted with hypotension with a history of pheochromocytoma and labile hypertension Has been complaining of pain in the left renal angle and noted to have a bladder tumor with obstructive uropathy Pain is not controlled with nonnarcotic pain medications and was provided a small dose of Percocet Likely discharge tomorrow if the pain is controlled 09/11/2024 The patient was seen and examined in medical telemetry unit in presence of the daughter Her back pain is reasonably controlled with current medications She has been making out enough urine and the kidney function has been improving Review of Systems Review of Systems: All systems reviewed and are unremarkable except as noted below Physical Exam Physical Exam: Lying in bed with acute distress due to pain in the left renal angle Constitutional: well developed, well nourished, + ill appearing and + morbidly obese Eyes: PERRL, conjunctivae normal, anicteric sclerae ENMT: external ear and nose normal, oropharynx normal Neck: trachea midline, no thyromegaly Respiratory: no respiratory distress Auscultation: lungs clear to auscultation bilaterally Cardiovascular: Rate/Rhythm: regular rate, regular rhythm and + tachycardic Heart Sounds: normal S1 and normal S2; no murmur Extremities: + edema ( trace edema bilaterally) Gastrointestinal (Abdomen): Inspection/Auscultation: normal bowel sounds; abdomen not distended Percussion/Palpation: + abdomen tender ( left renal angle) and abdomen soft Neurologic: normal touch/pain/proprioception and moves all extremities; no focal motor deficits Lymphatic: no cervical or axillary lymphadenopathy Results & Data Results & Data Vital Signs (Past 12 Hours) Vital Signs Temp Pulse Pulse Resp BP Pulse Ox O2 Del Method 09/11/24 11:34 36.8 C 90 20 150/88 H 91 Room Air 09/11/24 07:38 36.9 C 88 18 166/84 H 93 Room Air 09/11/24 07:00 91 H 09/11/24 02:42 36.7 C 85 18 140/81 94 Room Air Laboratory Results Short CBC 09/11/24 Range/Units 07:15 WBC 6.24 (4.8-10.8) K/ul Hgb 11.8 L (12.0-16.0) g/dl Hct 35.1 L (37.0-47.0) % Plt Count 245 (130-400) K/uL BMP 09/11/24 07:15 Sodium 137 Potassium 4.1 Chloride 102 Carbon Dioxide 29 BUN 24 H Creatinine 1.86 H Glucose 130 H Calcium 9.3
--- NOTE | 2024-09-11 13:15 | Urology Progress Note ---
Date of Service September 11, 2024 Assessment & Plan (1) Bladder tumor: (2) Pheochromocytoma: Plan: 73-year-old female with known pheochromocytoma who was admitted due to weakness. Creatinine downtrending, 1.[address] with previously known bladder mass and left hydronephrosis Patient hemodynamically stable and afebrile Patient has labile blood pressures due to her tumor and had following with outpatient endocrinology for management Patient is scheduled for cystoscopy, TURP, possibly left retrograde pyelogram, left ureteral stent placement on 09/16/2024 at [facility]. No acute intervention at this time Other medical management and care per primary team Continue to monitor renal function-if worsens consider transfer to [place] for further care Goal to discharge in time to get to [place] for her transurethral resection of bladder tumor will sign off, recall as needed Admission and Anticipated Discharge Date Admission Date: September 09, 2024 Subjective Patient seen and examined at bedside this morning. She is awake and resting in bed. She reports occasional left flank and pelvic discomfort. Denies nausea, vomiting, fever or chills. Review of Systems Constitutional: as per Subjective / HPI Genitourinary: as per Subjective / HPI Physical Exam Constitutional: + obese; no acute distress Respiratory: normal respiratory effort and able to speak in complete sentences Musculoskeletal: Extremities: extremities normal to inspection Neurologic: awake Psychiatric: Orientation: alert and oriented x 3 Results & Data Vital Signs (Past 12 Hours) Vital Signs Temp Pulse Pulse Resp BP Pulse Ox O2 Del Method 09/11/24 11:34 36.8 C 90 20 150/88 H 91 Room Air 09/11/24 07:38 36.9 C 88 18 166/84 H 93 Room Air 09/11/24 07:00 91 H 09/11/24 02:42 36.7 C 85 18 140/81 94 Room Air PG Care Time/CCT Total # of Minutes Spent Total Time Spent with Patient: Total time spent is greater than 50% in coordination of care (as documented) at patient's floor/unit and/or counseling patient: Coding Level of Care Code 94708 SUB INP/OBS CARE 2/35MIN Diagnoses Bladder tumor D49.4 Pheochromocytoma D35.00
--- NOTE | 2024-09-11 14:03 | Electrocardiogram Report ---
Test Reason : Blood Pressure : */* mmHG Vent. Rate : 104 BPM Atrial Rate : 104 BPM P-R Int : 132 ms QRS Dur : 68 ms QT Int : 364 ms P-R-T Axes : 47 39 34 degrees QTcB Int : 478 ms Sinus tachycardia Otherwise normal ECG When compared with ECG of 24-Aug-2024 15:41, No significant change was found Confirmed by Willie Mitchell ([id number]) on 09/11/2024 2:03:04 PM Referred By: REFERRED SELF Confirmed By: Willie Mitchell
--- NOTE | 2024-09-11 14:10 | Electrocardiogram Report ---
Test Reason : Blood Pressure : */* mmHG Vent. Rate : 99 BPM Atrial Rate : 99 BPM P-R Int : 142 ms QRS Dur : 70 ms QT Int : 360 ms P-R-T Axes : 37 37 30 degrees QTcB Int : 462 ms Normal sinus rhythm Normal ECG When compared with ECG of 09-Sep-2024 14:40, (unconfirmed) No significant change was found Confirmed by Willie Mitchell ([id number]) on 09/11/2024 2:10:48 PM Referred By: REFERRED SELF Confirmed By: Willie Mitchell
--- NOTE | 2024-09-12 07:24 | Discharge Summary ---
Date of Service September 12, 2024 Admission HPI Per Admitting Provider Ms. 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 Patient has been undergoing medication titration to control episodic hypertension with Endocrinology. Patient was started on prazosin BID and taken off coreg and nifedipine; however, today she was told to take a nifedipine, which prompted a drop in her BP. This scared her as her pressures were in the low 80s, prompting her to present to the ED. She reports that she has an appointment with Urology next week in [place] for a stent placement. She notes that in addition to her hypotension, she has been experiencing increasing back pain and spasms. She reports chronic dysuria. She denies fevers, chills, nausea, vomiting, or any other concerns. In the ED, vitals were notable for BP of 88-115, HR of low 100s and O2 sat of mid 90s on RA Imaging revealed Left bladder mass most certainly neoplastic with obstruction of the left ureter with mild to moderate hydroureteronephrosis. Labs with Cr 2.51 EKG from 08/24 with QTc 464 ED interventions: 2L NS : [facility] and management of hypotension and ADI Admission Exam Per Admitting Provider Physical Exam: GENERAL APPEARANCE: AxOx4, generally well-appearing, talkative woman, no acute distress. HEENT: NC, AT. MMM. EOMI, clear conjunctiva, oropharynx clear. NECK: Supple without lymphadenopathy. No stiffness or restricted ROM. HEART: Normal rate and regular rhythm, normal S1/S1, no m/r/g LUNGS: CTAB, moving air well. No crackles or wheezes are heard. ABDOMEN: Soft, nontender, nondistended with good bowel sounds heard. BACK: ++ Left CVAT, no obvious deformity. EXTREMITIES: Without cyanosis, clubbing or edema. NEUROLOGICAL: Grossly nonfocal. Alert and oriented, moving all 4 extremities. CN not formally tested but appear grossly intact. Skin: Warm and dry without any rash. Principal Diagnosis Labile blood pressure, obstructive uropathy, ADI on CKD, pheochromocytoma/paraganglioma Discharge Exam Lying in bed with acute distress due to pain in the left renal angle Constitutional well developed, well nourished, + ill appearing and + morbidly obese Eyes PERRL, conjunctivae normal, anicteric sclerae ENMT external ear and nose normal, oropharynx normal Neck trachea midline, no thyromegaly Respiratory no respiratory distress Auscultation: lungs clear to auscultation bilaterally Cardiovascular Rate/Rhythm: regular rate, regular rhythm and + tachycardic Heart Sounds: normal S1 and normal S2; no murmur Extremities: + edema ( trace edema bilaterally) Gastrointestinal (Abdomen) Inspection/Auscultation: normal bowel sounds; abdomen not distended Percussion/Palpation: + abdomen tender ( left renal angle) and abdomen soft Neurologic normal touch/pain/proprioception and moves all extremities; no focal motor deficits Lymphatic no cervical or axillary lymphadenopathy Discharge Data Allergies Allergy/AdvReac Type Severity Reaction Status Date / Time Sulfa (Sulfonamide Allergy Severe face Verified 09/09/24 17:07 Antibiotics) tongue lips swelling,HEADACHE codeine AdvReac Intermediate N/V Verified 09/09/24 17:07 amoxicillin AdvReac Mild YEAST Verified 09/09/24 17:07 INFECTION clavulanic acid AdvReac Mild YEAST Verified 09/09/24 17:07 INFECTION nitrofurantoin AdvReac Unknown liver Verified 09/09/24 17:07 [From Macrobid] injury Consultations 09/09/24 17:15 ED Decision to Admit Stat 09/10/24 04:44 Consult Urology Routine Ordered Studies 09/09/24 15:39 CT abd pelvis wo con Stat Hospital Course (1) Labile blood pressure: History of pheochromocytoma/paraganglioma normal Under care of equity research analyst Labile blood pressure and currently on prazosin 10 mg 3 times daily Presented with low blood pressure on admission Blood pressure running around 119/74 Discussed with the equity research analyst and will continue with prazosin 10 mg 3 times daily She will be given prazosin 10 mg 3 times daily with salt tablet for control of labile hypertension Her blood pressure has been going up and she will be discharged home on her other home medications as well Back spasms with back pain suspect 2/2 tumor growth s/p one dose muscle relaxer schedule tylenol 1000mg q8h CT of the abdomen pelvis showed left bladder mass with mild hydronephrosis Her renal angle is acutely tender and kidney function has been improving Pain is not controlled with Tylenol and she will be prescribed Percocet to control the pain Likely discharge tomorrow She was given Percocet 5 mg Q6 hourly as needed and also warned against possible side effect if misused and especially with addition to Xanax (2) Paraganglioma: (3) ADI (acute kidney injury): ADI on CKD III Bladder tumor, likely pheochromocytoma Obstructive uropathy 2/[address] with left obstructive tumor Urology consulted Reported an appointment next Saturday for stent placement Cr at 2.5, uptrending Appreciate urology input and recommendation- no acute intervention Creatinine has been decreasing She was advised to drink more fluid Was advised to keep appointment for cystoscopy and resection of the bladder tumor as scheduled as an outpatient (4) CKD (chronic kidney disease), stage III: (5) Pheochromocytoma: (6) Diabetes mellitus, type II: (7) Hypertension: (8) Hypothyroidism: (9) Neuroforaminal stenosis of lumbar spine: (10) Lumbar stenosis with neurogenic claudication: Plan Ms. 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 #Hypotension #Pheochromocytoma/paraganglioma suspect medication induced; per Endocrinology instructions, patient has been weening off other blood pressure medications while starting prazosin BID for pheo treatment. Coreg and Nifedipine held; however, dose of nifedipine resumed today with resultant hypotension Hold tonight's dose of Prazosin BID, consider resuming in am Hold coreg and nifedpine IVF @ 80 consider small dose of coreg if tachycardic and pressure resolves it consider Endocrinology consult #DMTII SSI regimen #Hypothyroidism continue Levothyroxine at 137mcg #depression/anxiety resume home regimen #Seasonal allergies resume home regimen #Nocturnal hypoxia continue 2L qhs DVT PPX scds, hold asa 81 for possible stent Admit med tele Total Time Total Time Spent Total Time Spent (In Minutes): 35 minutes Discharge Plan Discharge Items Patient Disposition: Home - Self-Care Reason For Visit: WEAKNESS,HYPOTENSION Discharge Diagnosis: Labile blood pressure, obstructive uropathy, ADI on CKD, pheochromocytom a/paraganglioma Condition on Discharge: Fair Activity: Resume your previous activity Non-emergency contact: Primary Care Provider Call non-emergency contact if: you have any medication questions and your symptoms worsen Follow-up/Referrals: Walter Holt MD [Physician] - 09/15/24 10:00 am Patti Posadas MD [Primary Care Provider] - (Date & Time 09/17/2024 11:20 AM Provider:Patti Posadas MD [facility], [facility] ) Diet: Carb Consistent or DM2 and Heart Healthy Diet Comment: drink more fluid Addtl Attending Provider Instructions: Please take precautions to avoid falls Take your medications as advised Try to drink about 7 to 8 cups of water daily Take your blood pressure medications with sodium tablet Please keep appointment with your healthcare providers Pending Studies at Discharge: No Stand-Alone Forms: My [employer], Smoking Cessation Medications and DC Order Prescriptions: New prazosin 1 mg Capsule 10 mg PO TID Qty: 90 0RF Rx Instructions: Take this with a salt tab oxycodone-acetaminophen [Percocet] 5-325 mg Tablet 1 tab PO Q6H PRN (Reason: pain) Qty: 20 0RF sodium chloride 1,000 mg tablet,soluble 500 mg PO TID Qty: 30 0RF Rx Instructions: Take with Prazocin Continued perphenazine 2 mg tablet 6 mg PO HS lorazepam 0.5 mg tablet 0.5 mg PO HS PRN (Reason: ANXIETY/SLEEP) diclofenac sodium [Arthritis Pain (diclofenac)] 1 % gel 2 g topical QID PRN (Reason: Pain) vitamin E (dl, acetate) 180 mg (400 unit) capsule 180 mg PO BID turmeric-turmeric root extract 450-50 mg capsule 1 cap PO DAILY omega 1-ajv-rev-fish oil 300 mg (120 mg- 180mg)-1,000 mg capsule 1 cap PO BID sodium chloride 1,000 mg tablet,soluble 1,000 mg PO BID Qty: 60 3RF citalopram [Celexa] 10 mg tablet 10 mg PO DAILY Rx Instructions: TOTAL DOSE 30 MG--TAKES WITH 20 MG TAB. garlic 1,000 mg Capsule 1,000 mg PO QAM metformin 500 mg tablet 500 mg PO BIDM carvedilol 6.25 mg tablet 6.25 mg PO BIDM Rx Instructions: held albuterol sulfate 2.5 mg /3 mL (0.083 %) solution for nebulization 2.5 mg continuous nebulization Q4H PRN (Reason: Shortness Of Breath Or Wheezing) atorvastatin 10 mg tablet 10 mg PO QAM Hold Instructions: Resume on 07/22/24. Hold statin until liver function normalizes, follow up with your PCP for when to resume. tizanidine 4 mg tablet 4 mg PO TID PRN (Reason: muscle spasms) famotidine 20 mg tablet 20 mg PO BID mirtazapine 30 mg tablet 30 mg PO HS montelukast 10 mg tablet 10 mg PO DAILY vitamin B complex Capsule 1 cap PO DAILY cetirizine [Allergy Relief (cetirizine)] 10 mg tablet 10 mg PO QAM doxepin 25 mg capsule 25 mg PO QAM citalopram 20 mg tablet 20 mg PO DAILY Rx Instructions: TOTAL DOSE 30 MG--TAKES WITH 10 MG TAB. albuterol sulfate [Ventolin HFA] 90 mcg/actuation HFA aerosol inhaler 2 puff INHALATION Q6H PRN (Reason: Shortness Of Breath Or Wheezing) levothyroxine 125 mcg tablet 137 mcg PO DAILYBB magnesium oxide 400 mg magnesium Tablet 400 mg PO DAILY nifedipine 30 mg tablet extended release 30 mg PO QAM Rx Instructions: held Discontinued aspirin 81 mg tablet,delayed release (DR/EC) 81 mg PO QAM prazosin 5 mg capsule 5 mg PO BID Discharge Orders: Discharge Order (Routine); Ordered 09/11/24 Ordered By: Miles Sheldon Admission Data Admit Date/Time: 09/09/24 17:59 Attending Provider: Miles Sheldon Admit Provider: Haily Powell Primary Care Provider: Patti Posadas Other Providers: Haily Powell; Dave Gomez Other Interventions: Discharge Summary Assessment (RN) Last Done: 09/11/24 12:57
== END 2024-09-11 14:10 | disposition home or self-care (01) | DRG 312 ==
LOC: EDSEX → ED 14:35 → SUATTDRO 17:59 → EDINP 17:59 → 2W 21:14

== ENCOUNTER 2024-10-01 11:20 | Inpatient (IN) ==
[2024-10-01] MEDS ORDERED: SODIUM CHLORIDE 0.9% 100 ML IV PRN (11:33)
--- NOTE | 2024-10-01 11:41 | Emergency Department Note ---
Impression & Plan Symptomatic anemia, Bladder cancer, Gross hematuria, Obstruction of Zimmerman catheter, Nephrostomy present ED Provider Note NAME: WILNER KENNEDY AGE: 73 SEX: F : 1950 ARRIVES VIA: Ambulance INFORMANT: Patient ED PROVIDER(S): Sagar Bueno MD CHIEF COMPLAINT: Hematuria, generalized weakness, syncope. PLAN: Disposition: Admit MEDICAL DECISION MAKING: The patient is a pleasant 73-year-old woman with a past medical history of pheochromocytoma, CKD, labile blood pressure, type 2 diabetes, COPD, recent diagnosis of bladder cancer status post bladder mass resection and left sided nephrostomy at [facility] on 09/17 who presents to the emergency department via EMS for ongoing gross hematuria in her catheter which has increased in severity with report of clotting of the catheter frequently and drainage around the catheter tubing with increased abdominal pain and generalized weakness. Upon EMS arrival the patient had episode of syncope and was noted to have blood pressure of 60s/40s. The patient did regain consciousness with initiation of IV fluid resuscitation. I did discuss the case with EMS crew on medical command and they did proceed with aggressive resuscitation with crystalloid for total 1 L with pressure bag. She did stabilize with normal blood pressure and mentation. Patient is not on anticoagulation. She does take a low-dose aspirin daily per EMS report. On evaluation the patient is acute on chronically ill-appearing but no acute distress, afebrile with heart rate in the 100s and blood pressure 110/60s and vital signs otherwise stable. She appears clinically dry. She exhibits mild pallor. She has mild distention of her lower abdomen with mild discomfort without discrete tenderness. Zimmerman catheter is draining translucent grossly bloody urine. Given suspicion for significant amount of clot in her bladder three-way Zimmerman catheter was placed for continuous irrigation. The patient did report some interval improvement subsequently. Zimmerman catheter drainage was sluggish but did continue. EKG without overt acute ischemia. CXR negative for acute cardiopulmonary process per my personal preliminary review/interpretation. WBC within normal limits. H/H 7/21.2 down from 10.8/33.1 on 09/27. Patient did consent for blood transfusion. There is no neutrophilia. Chemistry without metabolic acidosis. Sodium is 127 with glucose of 120. Creatinine is 1.47, improved from prior. Lactic acid 2.3 prior to additional resuscitation with PRBCs. Magnesium 1.4 with IV repletion initiated. LFTs without significant normality. High-sensitivity troponin 2.3, within normal limits. Procalcitonin is not elevated. Urine analysis obtained from both the left nephrostomy catheter which was draining clear yellow urine as well as the patient's Zimmerman catheter following exchange. CT of the head negative for acute abnormalities. CT of the chest also negative for acute process. Pulmonary nodules are described. CT of the pelvis demonstrates large amount of clot within the bladder consistent with patient's presentation in setting of her bladder mass. Left sided nephrostomy is in place appropriately. Blood pressure remained stable with initiation of blood transfusion with PRBCs. Case was discussed with urology Janie Cgae urology [facility] with Dr. Zheng urology on-call. Appreciate consult recommendations. Patient can be admitted to the facility for further management. Of note, patient continued to receive Zimmerman catheter irrigation and eventually the CBI began to flow freely with interval increased improvement. Appreciate assistance and further manual irrigation with removal of clots. Case was discussed with Nickie Gomez [facility] with Dr[facility], who will evaluate the patient for admission. Further management per admitting team. Triage Nursing notes reviewed and agree them. Prior/external medical records reviewed Vital Signs: reviewed Differential diagnosis: Renal colic, UTI, appendicitis, diverticulitis, mesenteric ischemia, aortic pathology, infections, inflammatory bowel disease, PUD, biliary pathology, as well as other pathologies. ER treatment provided: See below. Diagnostics interpreted by me: ECG: Sinus tachycardia 105 bpm, no ectopy, no overt ST elevation or depression, QTc 483, QRS 70. Cardiac Monitoring: An order for continuous cardiac monitoring was placed and demonstrated sinus tachycardia, 105 bpm, no ectopy. Laboratory studies: See below Imaging studies: See below Consultation(s): josue Yates with Dr. Zheng urology on-call. Nickie Gomez [facility] with Dr. [facility]. HPI: Per MDM. ROS: See above HPI for pertinent positives & negatives. A total of 10 systems reviewed and were otherwise negative. VITALS:See Below PHYSICAL EXAMINATION: GENERAL: Awake, alert, acute on chronically ill-appearing, in no distress, BMI 43.5. HENT: Normocephalic, atraumatic. Oropharynx with dry mucous membranes and otherwise unremarkable. EYES: Normal conjunctiva. Sclera non-icteric. EOMI. No nystamgus. PEARRL. NECK: Supple. No nuchal rigidity. FROM. No JVD. RESPIRATORY: Clear to auscultation. CARDIAC: Tachycardic rate, normal rhythm. Extremities warm an mild distention of her lower abdomen with mild discomfort without discrete tenderness. No rebound or guarding. Left-sided nephrostomy tube present. Clear yellow urine draining. : Zimmerman catheter present draining translucent grossly bloody urine. MUSCULOSKELETAL: Chest examination reveals no tenderness. The back is symmetrical on inspection without obvious abnormality. There is no CVA tenderness to palpation. No joint edema. LOWER EXTREMITIES: Calves are equal size bilaterally and non-tender. No edema. No discoloration. NEURO: A and O x 4, no focal sensory or motor deficits noted. Cranial nerves II-XII grossly intact. 5/5 strength and SILT x 4 extremities. SKIN: Mild pallor. No rash or jaundice noted. ED COURSE: Critical Care: I have personally spent greater than 65 minutes of critical care time in the direct management of this patient. This includes bedside care, interpretation of diagnostic studies, and testing, discussion with consultants, patient, and family members, and other required patient management activities. This 65 minutes is in excess of all separately billable procedures. Sagar Bueno MD Past Med/Surg History Problem List Nephrostomy present (Acute) Obstruction of Zimmerman catheter (Acute) Gross hematuria (Acute) Bladder cancer (Acute) Symptomatic anemia (Acute) Gross hematuria Acute blood loss anemia Bladder cancer (Chronic) Nephrostomy complication (Acute) Cystitis (Acute) Pheochromocytoma Weakness (Acute) ADI (acute kidney injury) (Acute) Paraganglioma Elevated LFTs (Acute) Bladder tumor Orthostatic hypotension (Acute) Neuroforaminal stenosis of lumbar spine Labile blood pressure CKD (chronic kidney disease), stage III Degenerative spondylolisthesis Lumbar stenosis with neurogenic claudication History of heart attack 1996- medically managed Diabetes mellitus, type II COPD (chronic obstructive pulmonary disease) Dyslipidemia Nocturnal hypoxemia 2L O2 HS Hypertension Hypothyroidism Anxiety and depression History of total left hip arthroplasty (~11/2019) Medical History ADI (acute kidney injury) Cervical pain Greater trochanteric bursitis of left hip Acid reflux well controlled Obesity Fatty liver Arthritis Degenerative disc disease Sciatica Thyroid enlarged no dysphagia Asthma mild, "well controlled and stable", rare inhaler use Surgical History History of colonoscopy History of left cataract surgery History of right cataract surgery History of right hip replacement History of hysterectomy History of hernia repair History of cardiac cath FOLLOWING HEART ATTACK, NO FINDINGS 1996 Family History Mother Family history of diabetes mellitus Aunt Family history of diabetes mellitus Son Family history of colon cancer Social History Smoking Status: Former smoker Tobacco Type: Cigarettes Second Hand Exposure: No; Do You Dip or Chew Tobacco: No; Hx Alcohol Use: No Hx Substance Use: No Preferred Language: Nauruan Communication Ability: Effective Visual Impairment: No Limitations Hearing Ability: Normal Student Services Vice President Required: No Beliefs That Will Affect Care: None Current Living Situation: Alone Current Living Situation Comment: caregiver somedays current occupational status: retired Other Information That Helps Us Care for You: No Feels Safe at Home: Yes Safety Concerns: Feels Safe At This Time Safety Concerns Comment: office of aging is visiting her tomorrow regarding getting more help @ home Assistive Devices: Raised Toilet Seat, Walker and Other Allergies Allergies Allergy/AdvReac Type Severity Reaction Status Date / Time Sulfa (Sulfonamide Allergy Severe face Verified 09/09/24 17:07 Antibiotics) tongue lips swelling,HEADACHE codeine AdvReac Intermediate N/V Verified 09/09/24 17:07 amoxicillin AdvReac Mild YEAST Verified 09/09/24 17:07 INFECTION clavulanic acid AdvReac Mild YEAST Verified 09/09/24 17:07 INFECTION nitrofurantoin AdvReac Unknown liver Verified 09/09/24 17:07 [From Macrobid] injury Home Meds Home Medications Medication Instructions Recorded Confirmed albuterol sulfate 2.5 mg/3 mL 2.5 mg continuous nebulization Q4H 02/17/24 10/01/24 (0.083 %) solution for nebulization PRN Shortness Of Breath Or Wheezing albuterol sulfate 90 mcg/actuation 2 puff inhalation Q6H PRN 02/17/24 10/01/24 aerosol inhaler (Ventolin HFA) Shortness Of Breath Or Wheezing atorvastatin 10 mg tablet 10 mg PO QAM 02/17/24 10/01/24 cetirizine 10 mg tablet (Allergy 10 mg PO QAM 02/17/24 10/01/24 Relief (cetirizine)) citalopram 20 mg tablet 20 mg PO DAILY 02/17/24 10/01/24 doxepin 25 mg capsule 25 mg PO QAM 02/17/24 10/01/24 famotidine 20 mg tablet 20 mg PO BID 02/17/24 10/01/24 metformin 500 mg tablet 500 mg PO BIDM 02/17/24 10/01/24 mirtazapine 30 mg tablet 30 mg PO HS 02/17/24 10/01/24 montelukast 10 mg tablet 10 mg PO DAILY 02/17/24 10/01/24 tizanidine 4 mg tablet 4 mg PO Q8H PRN muscle spasms 02/17/24 10/01/24 vitamin B complex 1 cap PO DAILY 02/17/24 10/01/24 diclofenac sodium 1 % topical gel 2 g topical QID PRN Pain 03/04/24 10/01/24 (Arthritis Pain (diclofenac)) lorazepam 0.5 mg tablet 0.5 mg PO HS PRN ANXIETY/SLEEP 03/04/24 10/01/24 perphenazine 2 mg tablet 6 mg PO HS 03/04/24 10/01/24 turmeric 450 mg-turmeric root 1 cap PO DAILY 03/04/24 10/01/24 extract 50 mg capsule vitamin E (dl, acetate) 180 mg 180 mg PO BID 03/04/24 10/01/24 (400 unit) capsule citalopram 10 mg tablet (Celexa) 10 mg PO DAILY 06/06/24 10/01/24 garlic 1,000 mg capsule 1,000 mg PO QAM 06/06/24 10/01/24 magnesium oxide 400 mg PO DAILY 09/09/24 10/01/24 metoprolol succinate 25 mg 12.5 mg PO BID 09/27/24 10/01/24 tablet,extended release 24 hr aspirin 81 mg tablet,delayed 81 mg PO DAILY 10/01/24 10/01/24 release ciprofloxacin HCl 500 mg tablet 500 mg PO DAILY 10/01/24 10/01/24 olopatadine 0.2 % eye drops 1 drp ophthalmic (eye) QAM 10/01/24 10/01/24 oxycodone-acetaminophen 5 mg-325 1 tab PO BID PRN pain 10/01/24 10/01/24 mg tablet (Percocet) prazosin 5 mg capsule 10 mg PO BID 10/01/24 10/01/24 triamcinolone acetonide 0.5 % 1 applic topical BID 10/01/24 10/01/24 topical cream Previous Rx's Medication Instructions Recorded sodium chloride 1,000 mg soluble 500 mg (1/2 x 1,000 mg) PO TID #30 09/11/24 tablet tabs levothyroxine 150 mcg tablet 150 mcg PO DAILYBB #30 tabs 09/23/24 cefpodoxime 200 mg tablet 200 mg PO DAILY 10 days #10 tabs 09/27/24 Results & Data (ED) Vital Signs Vital Signs - 24 hr 10/01/24 11:25 10/01/24 11:25 10/01/24 11:25 Temperature 36.7 C Temperature Source Oral Pulse Rate 107 H Pulse Rate [Apical] Pulse Rate from SpO2 Sensor Respiratory Rate 19 Respiratory Effort / Characteristics Non-Labored Spontaneous Respiratory Depth Normal Blood Pressure 114/69 114/69 114/69 Blood Pressure [Right Arm] Blood Pressure Mean 84 80 80 Blood Pressure Mean [Right Arm] Blood Pressure Position [Right Arm] Pulse Oximetry 96 Oxygen Delivery Method Room Air Sepsis Recent Fever Within 48 Hours No Sepsis New/Unexplained Change in Mental Status No Sepsis Action Taken by Nursing No Action Required 10/01/24 11:27 10/01/24 11:33 10/01/24 11:33 Temperature Temperature Source Pulse Rate 108 H 108 H Pulse Rate [Apical] Pulse Rate from SpO2 Sensor 107 H Respiratory Rate 17 Respiratory Effort / Characteristics Respiratory Depth Blood Pressure Blood Pressure [Right Arm] Blood Pressure Mean Blood Pressure Mean [Right Arm] Blood Pressure Position [Right Arm] Pulse Oximetry 95 94 Oxygen Delivery Method Room Air Sepsis Recent Fever Within 48 Hours Sepsis New/Unexplained Change in Mental Status Sepsis Action Taken by Nursing 10/01/24 11:37 10/01/24 11:37 10/01/24 11:37 Temperature Temperature Source Pulse Rate Pulse Rate [Apical] Pulse Rate from SpO2 Sensor Respiratory Rate Respiratory Effort / Characteristics Respiratory Depth Blood Pressure 110/82 110/82 110/82 Blood Pressure [Right Arm] Blood Pressure Mean 96 96 96 Blood Pressure Mean [Right Arm] Blood Pressure Position [Right Arm] Pulse Oximetry Oxygen Delivery Method Sepsis Recent Fever Within 48 Hours Sepsis New/Unexplained Change in Mental Status Sepsis Action Taken by Nursing 10/01/24 11:39 10/01/24 11:40 10/01/24 11:40 Temperature Temperature Source Pulse Rate 105 H Pulse Rate [Apical] Pulse Rate from SpO2 Sensor 106 H Respiratory Rate 16 Respiratory Effort / Characteristics Respiratory Depth Blood Pressure 121/63 121/63 Blood Pressure [Right Arm] Blood Pressure Mean 94 94 Blood Pressure Mean [Right Arm] Blood Pressure Position [Right Arm] Pulse Oximetry 96 Oxygen Delivery Method Sepsis Recent Fever Within 48 Hours Sepsis New/Unexplained Change in Mental Status Sepsis Action Taken by Nursing 10/01/24 11:42 10/01/24 11:50 10/01/24 12:01 Temperature Temperature Source Pulse Rate 103 H Pulse Rate [Apical] Pulse Rate from SpO2 Sensor 102 H Respiratory Rate 19 Respiratory Effort / Characteristics Respiratory Depth Blood Pressure 128/78 102/77 Blood Pressure [Right Arm] Blood Pressure Mean 85 83 Blood Pressure Mean [Right Arm] Blood Pressure Position [Right Arm] Pulse Oximetry 95 Oxygen Delivery Method Room Air Sepsis Recent Fever Within 48 Hours Sepsis New/Unexplained Change in Mental Status Sepsis Action Taken by Nursing 10/01/24 12:01 10/01/24 12:01 10/01/24 12:03 Temperature Temperature Source Pulse Rate 104 H Pulse Rate [Apical] Pulse Rate from SpO2 Sensor 104 H Respiratory Rate 24 Respiratory Effort / Characteristics Respiratory Depth Blood Pressure 102/77 102/77 Blood Pressure [Right Arm] Blood Pressure Mean 83 83 Blood Pressure Mean [Right Arm] Blood Pressure Position [Right Arm] Pulse Oximetry 97 Oxygen Delivery Method Sepsis Recent Fever Within 48 Hours Sepsis New/Unexplained Change in Mental Status Sepsis Action Taken by Nursing 10/01/24 12:06 10/01/24 12:11 10/01/24 12:30 Temperature Temperature Source Pulse Rate 104 H Pulse Rate [Apical] Pulse Rate from SpO2 Sensor 104 H Respiratory Rate 21 Respiratory Effort / Characteristics Respiratory Depth Blood Pressure 107/83 108/65 Blood Pressure [Right Arm] Blood Pressure Mean 85 91 Blood Pressure Mean [Right Arm] Blood Pressure Position [Right Arm] Pulse Oximetry 97 93 Oxygen Delivery Method Sepsis Recent Fever Within 48 Hours Sepsis New/Unexplained Change in Mental Status Sepsis Action Taken by Nursing 10/01/24 12:30 10/01/24 12:30 10/01/24 12:54 Temperature Temperature Source Pulse Rate Pulse Rate [Apical] Pulse Rate from SpO2 Sensor Respiratory Rate Respiratory Effort / Characteristics Respiratory Depth Blood Pressure 108/65 108/65 93/70 L Blood Pressure [Right Arm] Blood Pressure Mean 91 91 77 Blood Pressure Mean [Right Arm] Blood Pressure Position [Right Arm] Pulse Oximetry Oxygen Delivery Method Sepsis Recent Fever Within 48 Hours Sepsis New/Unexplained Change in Mental Status Sepsis Action Taken by Nursing 10/01/24 12:54 10/01/24 12:54 10/01/24 13:00 Temperature Temperature Source Pulse Rate 105 H 103 H Pulse Rate [Apical] Pulse Rate from SpO2 Sensor 107 H 103 H Respiratory Rate 19 21 Respiratory Effort / Characteristics Respiratory Depth Blood Pressure 93/70 L Blood Pressure [Right Arm] Blood Pressure Mean 77 Blood Pressure Mean [Right Arm] Blood Pressure Position [Right Arm] Pulse Oximetry 96 94 Oxygen Delivery Method Sepsis Recent Fever Within 48 Hours Sepsis New/Unexplained Change in Mental Status Sepsis Action Taken by Nursing 10/01/24 13:03 10/01/24 13:03 10/01/24 13:03 Temperature Temperature Source Pulse Rate Pulse Rate [Apical] Pulse Rate from SpO2 Sensor Respiratory Rate Respiratory Effort / Characteristics Respiratory Depth Blood Pressure 102/52 L 102/52 L 102/52 L Blood Pressure [Right Arm] Blood Pressure Mean 66 66 66 Blood Pressure Mean [Right Arm] Blood Pressure Position [Right Arm] Pulse Oximetry Oxygen Delivery Method Sepsis Recent Fever Within 48 Hours Sepsis New/Unexplained Change in Mental Status Sepsis Action Taken by Nursing 10/01/24 13:07 10/01/24 13:09 10/01/24 13:10 Temperature 36.5 C Temperature Source Oral Pulse Rate 103 H 103 H Pulse Rate [Apical] Pulse Rate from SpO2 Sensor 103 H Respiratory Rate 18 19 Respiratory Effort / Characteristics Respiratory Depth Blood Pressure 102/52 L 113/69 Blood Pressure [Right Arm] Blood Pressure Mean 68 78 Blood Pressure Mean [Right Arm] Blood Pressure Position [Right Arm] Pulse Oximetry 94 94 Oxygen Delivery Method Sepsis Recent Fever Within 48 Hours Sepsis New/Unexplained Change in Mental Status Sepsis Action Taken by Nursing 10/01/24 13:10 10/01/24 13:21 10/01/24 13:21 Temperature Temperature Source Pulse Rate Pulse Rate [Apical] Pulse Rate from SpO2 Sensor Respiratory Rate Respiratory Effort / Characteristics Respiratory Depth Blood Pressure 113/69 120/61 120/61 Blood Pressure [Right Arm] Blood Pressure Mean 78 77 77 Blood Pressure Mean [Right Arm] Blood Pressure Position [Right Arm] Pulse Oximetry Oxygen Delivery Method Sepsis Recent Fever Within 48 Hours Sepsis New/Unexplained Change in Mental Status Sepsis Action Taken by Nursing 10/01/24 13:25 10/01/24 13:27 10/01/24 13:27 Temperature 36.5 C Temperature Source Oral Pulse Rate 104 H Pulse Rate [Apical] Pulse Rate from SpO2 Sensor Respiratory Rate 19 Respiratory Effort / Characteristics Respiratory Depth Blood Pressure 86/54 L 86/54 L 86/54 L Blood Pressure [Right Arm] Blood Pressure Mean 64 61 61 Blood Pressure Mean [Right Arm] Blood Pressure Position [Right Arm] Pulse Oximetry 92 Oxygen Delivery Method Sepsis Recent Fever Within 48 Hours Sepsis New/Unexplained Change in Mental Status Sepsis Action Taken by Nursing 10/01/24 13:27 10/01/24 13:27 10/01/24 13:30 Temperature Temperature Source Pulse Rate 104 H Pulse Rate [Apical] Pulse Rate from SpO2 Sensor 104 H Respiratory Rate 18 Respiratory Effort / Characteristics Respiratory Depth Blood Pressure 86/54 L 110/61 Blood Pressure [Right Arm] Blood Pressure Mean 61 69 Blood Pressure Mean [Right Arm] Blood Pressure Position [Right Arm] Pulse Oximetry 91 Oxygen Delivery Method Sepsis Recent Fever Within 48 Hours Sepsis New/Unexplained Change in Mental Status Sepsis Action Taken by Nursing 10/01/24 13:30 10/01/24 13:30 10/01/24 13:33 Temperature Temperature Source Pulse Rate 103 H Pulse Rate [Apical] Pulse Rate from SpO2 Sensor 103 H Respiratory Rate 17 Respiratory Effort / Characteristics Respiratory Depth Blood Pressure 110/61 110/61 Blood Pressure [Right Arm] Blood Pressure Mean 69 69 Blood Pressure Mean [Right Arm] Blood Pressure Position [Right Arm] Pulse Oximetry 94 Oxygen Delivery Method Sepsis Recent Fever Within 48 Hours Sepsis New/Unexplained Change in Mental Status Sepsis Action Taken by Nursing 10/01/24 13:40 10/01/24 14:10 10/01/24 14:30 Temperature 36.7 C 36.6 C Temperature Source Oral Oral Pulse Rate 107 H 102 H Pulse Rate [Apical] 99 H Pulse Rate from SpO2 Sensor Respiratory Rate 19 18 17 Respiratory Effort / Characteristics Non-Labored Spontaneous Respiratory Depth Normal Blood Pressure 140/85 154/102 H Blood Pressure [Right Arm] 140/79 Blood Pressure Mean 103 119 Blood Pressure Mean [Right Arm] 99 Blood Pressure Position [Right Arm] Semi-fowlers Pulse Oximetry 95 96 96 Oxygen Delivery Method Room Air Sepsis Recent Fever Within 48 Hours Sepsis New/Unexplained Change in Mental Status Sepsis Action Taken by Nursing 10/01/24 15:10 10/01/24 15:32 Temperature 36.7 C Temperature Source Oral Pulse Rate 96 H 96 H Pulse Rate [Apical] Pulse Rate from SpO2 Sensor Respiratory Rate 20 Respiratory Effort / Characteristics Respiratory Depth Blood Pressure 165/126 H Blood Pressure [Right Arm] Blood Pressure Mean 139 Blood Pressure Mean [Right Arm] Blood Pressure Position [Right Arm] Pulse Oximetry 97 Oxygen Delivery Method Sepsis Recent Fever Within 48 Hours Sepsis New/Unexplained Change in Mental Status Sepsis Action Taken by Nursing Laboratory Data Attestation: I reviewed the patient's lab results. 10/02/24 20:52 10/02/24 05:55 Lab Results 10/01/24 10/01/24 10/01/24 Range/Units 11:30 11:37 11:39 WBC 7.03 (4.8-10.8) K/ul RBC 2.50 L (4.20-5.40) M/uL Hgb 7.0 L (12.0-16.0) g/dl POC Hgb 6.8 L* (12.0-16.0) g/dl Hct 21.2 L (37.0-47.0) % POC Hct 20 L* (37-47) % MCV 84.8 (80.0-100.0) fL MCH 28.0 (25.0-34.0) pg MCHC 33.0 (32.0-36.0) g/dL RDW Std Deviation 40.0 (36.4-46.3) fL RDW Coeff of Jennifer 13.2 (11.5-14.5) % Plt Count 220 (130-400) K/uL MPV 11.3 (9.4-12.4) fL Immature Gran % (Auto) 0.3 % Neut % (Auto) 70.1 % Lymph % (Auto) 14.8 % [place] % (Auto) 12.1 % Eos % (Auto) 2.4 % Baso % (Auto) 0.3 % Neut # (Auto) 4.93 (1.40-6.50) K/uL Lymph # (Auto) 1.04 L (1.20-3.40) K/uL [place] # (Auto) 0.85 H (0.11-0.59) K/uL Eos # (Auto) 0.17 (0.00-0.50) K/uL Baso # (Auto) 0.02 (0.00-0.20) K/uL Immature Gran # (Auto) 0.02 (0.01-0.20) K/uL Polychromasia 1+ PT 11.1 (9.0-12.0) Seconds INR 1.0 (0.9-1.1) VBG pH 7.39 (7.36-7.41) VBG pCO2 40 (38-50) mmHg VBG pO2 34 mmHg VBG HCO3 24 mmol/L VBG O2 Saturation < 60.0 % VBG Base Excess -0.7 mEq/L POC Sodium 126 L (135-144) mmol/L Sodium 127 L (136-145) mmol/L POC Potassium 4.0 (3.3-5.0) mmol/L Potassium 4.0 (3.5-5.1) mmol/L POC Chloride 92 L (101-112) mmol/L Chloride 94 L (98-107) mmol/L Carbon Dioxide 25 (21-32) mmol/L POC Total CO2 22 L (24-31) mmol/L Anion Gap 8 (3-11) POC Anion Gap 17.0 (16-25) mmol/L POC BUN 9 (7-18) mg/dl BUN 11 (6-23) mg/dl Creatinine 1.47 H (0.6-1.2) mg/dl POC Creatinine 1.7 H (0.6-1.3) mg/dl Est Cr Clr Drug Dosing 36.1 ml/min eGFR 37.23 BUN/Creatinine Ratio 7.5 L (10-20) Glucose 120 H (70-99(Fasting)) mg/dl POC Glucose (other) 119 H (70-99) mg/dl Lactate 2.3 H* (0.4-2.0) mmol/L Calcium 8.2 L (8.6-10.3) mg/dl POC Ioniz Calcium Luz Maria 1.10 L (1.12-1.32) mmol/l Magnesium 1.4 L (1.7-2.4) mg/dl Total Bilirubin 0.3 (0.2-1.0) mg/dl Direct Bilirubin 0.0 (0-0.2) mg/dl AST 11 L (13-39) U/L ALT 9 (7-52) U/L Alkaline Phosphatase 124 H (34-104) U/L Troponin I High Sens 2.3 (0-14) pg/ml Total Protein 5.7 L (6.0-8.3) gm/dl Albumin 3.2 L (3.4-5.0) gm/dl Procalcitonin < 0.02 (0-0.5) ng/ml Urine Color Urine Appearance (Clear) Urine pH (4.5-7.5) Ur Specific [place] (1.000-1.030) Urine Protein (Negative) Urine Glucose (UA) (Negative) Urine Ketones (Negative) Urine Blood (Negative) Urine Nitrite (Negative) Urine Bilirubin (Negative) Urine Urobilinogen (Negative) Ur Leukocyte Esterase (Negative) Urine RBC (0-2) /hpf Urine WBC (0-5) /hpf Ur Epithelial Cells (0-2) /hpf Urine Bacteria (None Seen) Blood Type A Positive Antibody Screen NEGATIVE Crossmatch See Detail 10/01/24 10/01/24 Range/Units 13:33 13:34 WBC (4.8-10.8) K/ul RBC (4.20-5.40) M/uL Hgb (12.0-16.0) g/dl POC Hgb (12.0-16.0) g/dl Hct (37.0-47.0) % POC Hct (37-47) % MCV (80.0-100.0) fL MCH (25.0-34.0) pg MCHC (32.0-36.0) g/dL RDW Std Deviation (36.4-46.3) fL RDW Coeff of Jennifer (11.5-14.5) % Plt Count (130-400) K/uL MPV (9.4-12.4) fL Immature Gran % (Auto) % Neut % (Auto) % Lymph % (Auto) % [place] % (Auto) % Eos % (Auto) % Baso % (Auto) % Neut # (Auto) (1.40-6.50) K/uL Lymph # (Auto) (1.20-3.40) K/uL [place] # (Auto) (0.11-0.59) K/uL Eos # (Auto) (0.00-0.50) K/uL Baso # (Auto) (0.00-0.20) K/uL Immature Gran # (Auto) (0.01-0.20) K/uL Polychromasia PT (9.0-12.0) Seconds INR (0.9-1.1) VBG pH (7.36-7.41) VBG pCO2 (38-50) mmHg VBG pO2 mmHg VBG HCO3 mmol/L VBG O2 Saturation % VBG Base Excess mEq/L POC Sodium (135-144) mmol/L Sodium (136-145) mmol/L POC Potassium (3.3-5.0) mmol/L Potassium (3.5-5.1) mmol/L POC Chloride (101-112) mmol/L Chloride (98-107) mmol/L Carbon Dioxide (21-32) mmol/L POC Total CO2 (24-31) mmol/L Anion Gap (3-11) POC Anion Gap (16-25) mmol/L POC BUN (7-18) mg/dl BUN (6-23) mg/dl Creatinine (0.6-1.2) mg/dl POC Creatinine (0.6-1.3) mg/dl Est Cr Clr Drug Dosing ml/min eGFR BUN/Creatinine Ratio (10-20) Glucose (70-99(Fasting)) mg/dl POC Glucose (other) (70-99) mg/dl Lactate (0.4-2.0) mmol/L Calcium (8.6-10.3) mg/dl POC Ioniz Calcium Luz Maria (1.12-1.32) mmol/l Magnesium (1.7-2.4) mg/dl Total Bilirubin (0.2-1.0) mg/dl Direct Bilirubin (0-0.2) mg/dl AST (13-39) U/L ALT (7-52) U/L Alkaline Phosphatase (34-104) U/L Troponin I High Sens (0-14) pg/ml Total Protein (6.0-8.3) gm/dl Albumin (3.4-5.0) gm/dl Procalcitonin (0-0.5) ng/ml Urine Color Yellow Red Urine Appearance Clear Cloudy A (Clear) Urine pH 7.0 (4.5-7.5) Ur Specific [place] 1.010 1.006 (1.000-1.030) Urine Protein 1+ H (Negative) Urine Glucose (UA) Negative (Negative) Urine Ketones Negative (Negative) Urine Blood 3+ H (Negative) Urine Nitrite Negative (Negative) Urine Bilirubin Negative (Negative) Urine Urobilinogen Negative (Negative) Ur Leukocyte Esterase 2+ H (Negative) Urine RBC 6-10 H >20 H (0-2) /hpf Urine WBC 21-50 H 21-50 H (0-5) /hpf Ur Epithelial Cells 0-2 0-2 (0-2) /hpf Urine Bacteria 2+ H None Seen (None Seen) Blood Type Antibody Screen Crossmatch Administered Medications Acetaminophen (Acetaminophen 325 Mg Tab) 650 mg PO Q4H PRN PRN Reason: Pain or Fever Stop: 10/31/24 17:45 Last Admin: 10/02/24 07:13 Dose: 650 mg Documented By: Admin: 10/01/24 19:41 Dose: 650 mg Documented By: DENIA Cetirizine HCl (Cetirizine Hcl 10 Mg Tablet) [facility] [place] Stop: 11/01/24 08:59 Last Admin: 10/02/24 08:00 Dose: 10 mg Documented By: HECTOR Citalopram Hydrobromide (Citalopram 20 Mg Tab) 30 mg PO DAILY [facility] Stop: 11/01/24 08:59 Last Admin: 10/02/24 08:00 Dose: 30 mg Documented By: HECTOR Docusate Sodium (Docusate Sodium 100 Mg Cap) 100 mg PO BID [facility] Stop: 11/01/24 10:29 Last Admin: 10/02/24 20:04 Dose: 100 mg Documented By: Admin: 10/02/24 11:17 Dose: 100 mg Documented By: ERIKA Doxepin HCl (Doxepin Hcl 25 Mg Capsule) 25 mg PO QAM [facility] Stop: 11/01/24 08:59 Last Admin: 10/02/24 09:00 Dose: 25 mg Documented By: HECTOR Famotidine (Famotidine 20 Mg Tab) 20 mg PO BID [facility] Stop: 10/31/24 20:59 Last Admin: 10/02/24 20:04 Dose: 20 mg Documented By: Admin: 10/02/24 08:07 Dose: 20 mg Documented By: Admin: 10/01/24 21:24 Dose: 20 mg Documented By: DENIA Daptomycin 400 mg/ Syringe 8 mls @ 4 mls/min IV Q24H [facility]; Protocol Stop: 10/12/24 15:29 Last Admin: 10/02/24 15:43 Dose: 4 mls/min Documented By: HECTOR Insulin Aspart (Insulin Aspart Per Unit Charge) 0 units SC ACHS [facility] Stop: 10/31/24 20:59 Last Admin: 10/02/24 20:18 Dose: Not Given Documented By: Admin: 10/02/24 17:03 Dose: 6 units Documented By: HECTOR Co-signed By: SVETA Admin: 10/02/24 12:22 Dose: 7 units Documented By: HECTOR Co-signed By: LORELEI Levothyroxine Sodium (Levothyroxine Sodium 150 Mcg Tablet) 150 mcg PO DAILYBB [facility] Stop: 11/01/24 06:29 Last Admin: 10/02/24 05:53 Dose: 150 mcg Documented By: DENIA Lorazepam (Lorazepam 0.5 Mg Tab) 0.5 mg PO BID PRN PRN Reason: ANXIETY/SLEEP Stop: 10/31/24 20:29 Last Admin: 10/02/24 15:45 Dose: 0.5 mg Documented By: HECTOR Magnesium Oxide (Magnesium Oxide 400 Mg Tab) 400 mg PO DAILY EROS Stop: 11/01/24 08:59 Last Admin: 10/02/24 08:01 Dose: 400 mg Documented By: HECTOR Metoprolol Succinate (Metoprolol Succ 25mg Ext Rel Tab) 12.5 mg PO BID [facility] Stop: 10/31/24 20:59 Last Admin: 10/02/24 20:05 Dose: 12.5 mg Documented By: Admin: 10/02/24 08:00 Dose: 12.5 mg Documented By: Admin: 10/01/24 21:09 Dose: 12.5 mg Documented By: DENIA Mirtazapine (Mirtazapine Tab 15 Mg Tab) 30 mg PO HS EROS Stop: 10/31/24 20:59 Last Admin: 10/02/24 20:04 Dose: 30 mg Documented By: Admin: 10/01/24 21:10 Dose: 30 mg Documented By: DENIA Miscellaneous (Olopatadine 0.2%~Order Awaiting Action) 1 each N/A QS EROS Stop: 11/01/24 07:59 Last Admin: 10/02/24 15:57 Dose: Not Given Documented By: Admin: 10/02/24 08:01 Dose: Not Given Documented By: HECTOR Montelukast Sodium (Montelukast Sodium 10 Mg Tablet) 10 mg PO DAILY EROS Stop: 11/01/24 08:59 Last Admin: 10/02/24 08:01 Dose: 10 mg Documented By: HECTOR Morphine Sulfate (Morphine Sulfate 2 Mg/Ml Carp) 1 mg IV Q4H PRN PRN Reason: Severe Pain (Scale 7, 8, 9,10) Stop: 10/15/24 16:06 Last Admin: 10/02/24 18:21 Dose: 1 mg Documented By: Admin: 10/02/24 09:11 Dose: 1 mg Documented By: Admin: 10/02/24 02:03 Dose: 1 mg Documented By: Admin: 10/01/24 16:40 Dose: 1 mg Documented By: LOLI Oxycodone/Acetaminophen (Oxycodone/Acetaminophen 5mg/325mg Tab) 1 tab PO Q8H PRN PRN Reason: pain Stop: 10/16/24 10:29 Last Admin: 10/02/24 20:06 Dose: 1 tab Documented By: PIERCE Perphenazine (Perphenazine 2 Mg Tab) 6 mg PO HS EROS Stop: 10/31/24 20:59 Last Admin: 10/02/24 20:04 Dose: 6 mg Documented By: Admin: 10/01/24 21:11 Dose: 6 mg Documented By: DENIA Prazosin HCl (Prazosin Hcl 1 Mg Cap) 10 mg PO BID EROS Stop: 10/31/24 20:59 Last Admin: 10/02/24 20:05 Dose: 10 mg Documented By: Admin: 10/02/24 08:01 Dose: 10 mg Documented By: Admin: 10/01/24 21:11 Dose: 10 mg Documented By: DENIA Sodium Chloride (Sodium Chloride 1 Gm Tablet) 0.5 gm PO TID EROS Stop: 10/31/24 20:59 Last Admin: 10/02/24 20:05 Dose: 0.5 gm Documented By: Admin: 10/02/24 14:22 Dose: 0.5 gm Documented By: Admin: 10/02/24 08:01 Dose: 0.5 gm Documented By: Admin: 10/01/24 21:10 Dose: 0.5 gm Documented By: DENIA Discontinued Medications Acetaminophen (Ofirmev) 1,000 mg in 100 mls @ 400 mls/hr IV NOW STA Stop: 10/01/24 12:23 Last Infusion: 10/01/24 13:00 Dose: Infused Documented By: Admin: 10/01/24 12:17 Dose: 400 mls/hr Documented By: MORGAN Famotidine (Pepcid 20mg Iv Push) 20 mg in 5 mls @ 2.5 mls/min IV NOW STA Stop: 10/01/24 12:10 Last Admin: 10/01/24 12:17 Dose: 2.5 mls/min Documented By: MORGAN Magnesium Sulfate/Dextrose (Magnesium Sulfate / D5w) 1 gm in 100 mls @ 100 mls/hr IV Q1H EROS Stop: 10/01/24 14:39 Last Infusion: 10/01/24 16:10 Dose: Infused Documented By: Admin: 10/01/24 14:47 Dose: 100 mls/hr Documented By: Infusion: 10/01/24 14:44 Dose: Infused Documented By: Admin: 10/01/24 13:44 Dose: 100 mls/hr Documented By: MORGAN Magnesium Sulfate/Dextrose (Magnesium Sulfate / D5w) 1 gm in 100 mls @ 50 mls/hr IV ONE ONE Stop: 10/01/24 18:09 Last Infusion: 10/01/24 20:21 Dose: Infused Documented By: Admin: 10/01/24 18:08 Dose: 50 mls/hr Documented By: [facility] Levofloxacin/Dextrose (Levaquin/D5w) 500 mg in 100 mls @ 100 mls/hr IV ONE STA; Protocol Stop: 10/01/24 17:18 Last Infusion: 10/01/24 17:47 Dose: Infused Documented By: Admin: 10/01/24 16:40 Dose: 100 mls/hr Documented By: LOLI Levofloxacin/Dextrose (Levaquin/D5w) 250 mg in 50 mls @ 50 mls/hr IV NOW ONE Stop: 10/01/24 18:59 Last Infusion: 10/01/24 20:20 Dose: Infused Documented By: Admin: 10/01/24 19:09 Dose: 50 mls/hr Documented By: MEY Insulin Aspart (Insulin Aspart Per Unit Charge) 0 units SC Q6 EROS Stop: 10/31/24 20:59 Last Admin: 10/02/24 06:28 Dose: Not Given Documented By: Admin: 10/01/24 21:25 Dose: Not Given Documented By: DENIA Ioversol (Optiray 320 100ml) 94 ml IV ONCE ONE Stop: 10/01/24 12:40 Last Admin: 10/01/24 12:40 Dose: 94 ml Documented By: DEV Lorazepam (Lorazepam 2 Mg/1 Ml Vial) 0.5 mg IV NOW STA Stop: 10/01/24 14:39 Last Admin: 10/01/24 14:44 Dose: 0.5 mg Documented By: MONIQUE Morphine Sulfate (Morphine Sulfate 2 Mg/Ml Carp) 2 mg IV NOW STA Stop: 10/01/24 12:10 Last Admin: 10/01/24 12:17 Dose: 2 mg Documented By: MORGAN Ondansetron HCl (Ondansetron Inj 2 Mg/Ml 2 Ml Vial) 4 mg IV NOW STA Stop: 10/01/24 12:10 Last Admin: 10/01/24 12:17 Dose: 4 mg Documented By: MORGAN Imaging Data Radiologist's Impression: Chest X-Ray 10/01/24 11:33 XR chest 1V portable CLINICAL HISTORY: Sepsis COMPARISON STUDY: 09/09/2024 FINDINGS: Single view portable chest demonstrates no acute cardiopulmonary process. There is no airspace opacity or pleural effusion. The heart and pulmonary vascularity are unremarkable for technique. IMPRESSION: No acute process ACT 112: Negative or not required by law. Electronically signed by: Daisy Lacy M.D. 10/01/2024 11:54 AM Abdomen/Pelvis CT 10/01/24 11:[address] WITH IV CONTRAST CT DOSE: 4022.87 HISTORY: Gross hematuria syncope, metstatic bladder ca TECHNIQUE: Multiaxial CT images of the abdomen and pelvis were performed following the IV administration of 94 cc of Optiray, A dose lowering technique was utilized adhering to the principles of ALARA. COMPARISON STUDY: 09/27/2024 FINDINGS: The only significant interval change since the prior study of 4 days ago as a presence of a large amount of blood/blood clot within the urinary bladder. There is a Zimmerman catheter in place. The echogenic areas present in the bladder as well. Elsewhere in the urinary tract, there is a left percutaneous nephrostomy in place. There is mild pyelocaliectasis in the right kidney with no obstructive component identified. There is a generalized hepatic steatosis. The gallbladder and bile ducts are unremarkable. The pancreas, adrenal glands, and spleen demonstrate no significant lesions. There is no aortic aneurysm or periaortic adenopathy. No bowel obstruction or free air. No ascites. In the pelvis, there is no mass or adenopathy. There is no fluid in the cul-de-sac. The appendix is not identified. Sclerotic bone lesion involving the L2 vertebral body is once again noted. Lung bases unchanged demonstrating a trace left pleural effusion. IMPRESSION: Large area of hyperattenuating tissue has developed within the urinary bladder since the prior study. This is consistent with a large blood clot from the patient's known bladder cancer. ACT 112: Negative or not required by law. The above report was generated using voice recognition software. It may contain grammatical, syntax or spelling errors. Electronically signed by: Daisy Lacy M.D. 10/01/2024 1:[address] 10/01/24 11:[address] WITH CONTRAST CT DOSE: 4022.87 mGy.cm HISTORY: syncope, metstatic bladder ca TECHNIQUE: Multiaxial CT images of the chest were performed following the IV administration of 90 cc of Optiray. A dose lowering technique was utilized adhering to the principles of ALARA. COMPARISON STUDY: Chest x-ray earlier today FINDINGS: There is moderate emphysema. There is a trace left pleural effusion. There is no pulmonary consolidation. No pneumothorax. There is a small area of groundglass opacity right middle lobe series 9 image 187. There are a few scattered small pulmonary nodules, largest a subpleural nodular density lateral left upper lobe image 165 measuring 1.1 cm and also anterior medial left upper lobe measures 6 mm image 116 no enlarged adenopathy. No pericardial effusion. There are coronary artery and aortic calcifications. No acute osseous findings.. IMPRESSION: 1. No lobar pneumonia. No pneumothorax. 2. Moderate emphysema. 3. A few pulmonary nodules for which follow-up chest CT recommended in 3-6 months. ACT 112: Positive. There are findings on this exam that require communication between the performing entity and the patient following Patient Test Result Information Act ([place] Act 112) guidelines. Electronically signed by: Isma Shields M.D. 10/01/2024 1:[address] 10/01/24 11:39 CT head/brain wo con CLINICAL HISTORY: syncope, metstatic bladder ca. TECHNIQUE: Multiple axial CT images of the head were obtained without contrast. Sagittal and coronal reconstructions were done. A dose lowering technique was utilized adhering to the principles of ALARA. COMPARISON: 03/19/2024 FINDINGS: The CT findings are stable. There is no intra-axial or extra-axial fluid collection, hemorrhage, or mass. A small left lacunar infarct is redemonstrated. There is no midline shift. There is no focal attenuation abnormality appreciated elsewhere. The bone windows are negative. IMPRESSION: Stable exam demonstrating no acute intracranial process. Sensitivity of a noncontrast study is limited with regard to metastatic disease. ACT 112: Negative or not required by law. The above report was generated using voice recognition software. It may contain grammatical, syntax or spelling errors. Electronically signed by: Daisy Lacy M.D. 10/01/2024 12:52 PM Discharge Plan Visit Data Chief Complaint: Hematuria Stated Complaint: BLOOD IN CATH ED Provider: Sagar Bueno Discharge Problem: Symptomatic anemia, Bladder cancer, Gross hematuria, Obstruction of Zimmerman catheter, Nephrostomy present Patient Disposition: Admitted As Inpatient Discharge Instructions Interventions: ED Discharge Assessment Last Done: 10/01/24 17:20 Discharge Problem: Bladder cancer Qualifiers: Bladder location: unspecified site Qualified Code(s): C67.9 - Malignant neoplasm of bladder, unspecified Obstruction of Zimmerman catheter Qualifiers: Encounter type: initial encounter Qualified Code(s): T83.091A - Other mechanical complication of indwelling urethral catheter, initial encounter
[2024-10-01 11:42] LABS: iSTAT Creatinine 1.7 mg/dl (0.6-1.3); iSTAT Hemoglobin 6.8 g/dl (12.0-16.0); iSTAT Ionized Calcium 1.1 mmol/l (1.12-1.32)
--- NOTE | 2024-10-01 11:55 | XRay Report ---
XR chest 1V portable CLINICAL HISTORY: Sepsis COMPARISON STUDY: 09/09/2024 FINDINGS: Single view portable chest demonstrates no acute cardiopulmonary process. There is no airsp zakia opacity or pleural effusion. The heart and pulmonary vascularity are unremarkable for technique. IMPRESSION: No acute process ACT 112: Negative or not required by law. Electronically signed by: Daisy Lacy M.D. 10/01/2024 11:54 AM
[2024-10-01 11:56] LABS: Base Excess VBG -0.7 mEq/L; HCO3 VBG 24 mmol/L; Oxygen Saturation VBG < 60.0 %; PCO2 VBG 40 mmHg (38-50); PO2 VBG 34 mmHg; pH VBG 7.39 (7.36-7.41)
[2024-10-01 11:58] LABS: Basophils # (auto) 0.02 K/uL (0.00-0.20); Basophils % (auto) 0.3 %; Eosinophils # (auto) 0.17 K/uL (0.00-0.50); Eosinophils % (auto) 2.4 %; Hematocrit (blood only) 21.2 % (37.0-47.0); Immature Granulocytes # (auto) 0.02 K/uL (0.01-0.20); Immature Granulocytes % (auto) 0.3 %; Lymphocytes # (auto) 1.04 K/uL (1.20-3.40); Lymphocytes % (auto) 14.8 %; Mean Corpuscular Volume 84.8 fL (80.0-100.0); Mean Platelet Volume 11.3 fL (9.4-12.4); Monocytes # (auto) 0.85 K/uL (0.11-0.59); Monocytes % (auto) 12.1 %; Neutrophils # (auto) 4.93 K/uL (1.40-6.50); Neutrophils % (auto) 70.1 %; Platelet Count 220 K/uL (130-400); RDW Coefficient of Variation 13.2 % (11.5-14.5); White Blood Count 7.03 K/ul (4.8-10.8)
[2024-10-01 12:07] LABS: Prothrombin Time 11.1 Seconds (9.0-12.0)
[2024-10-01] MEDS: MoRPHine SULFATE 2 MG/ML CARP IV STA (12:17)
[2024-10-01] MEDS: ONDANSETRON INJ 2 MG/ML 2 ML VIAL IV STA (12:17)
[2024-10-01] MEDS: ACETAMINOPHEN 1,000 MG/100 ML VIAL IV STA (12:17)
[2024-10-01] MEDS: FAMOTIDINE 20MG IV PUSH 20 MG/5 ML SYR IV STA (12:17)
[2024-10-01 12:19] LABS: Albumin Level 3.2 gm/dl (3.4-5.0); Bilirubin,Total 0.3 mg/dl (0.2-1.0); Calcium 8.2 mg/dl (8.6-10.3); Magnesium 1.4 mg/dl (1.7-2.4)
[2024-10-01 12:25] LABS: BUN Creatinine Ratio 7.5 (10-20); Creatinine Clr Calc Pharmacy 36.1 ml/min; Total Protein 5.7 gm/dl (6.0-8.3)
[2024-10-01 12:27] LABS: Troponin I High Sensitivity 2.3 pg/ml (0-14)
[2024-10-01] MEDS: OPTIRAY 320 100ml IV ONE (12:40)
[2024-10-01 12:46] LABS: Polychromasia 1+
--- NOTE | 2024-10-01 12:54 | CT Scan Report ---
CT head/brain wo con CLINICAL HISTORY: syncope, metstatic bladder ca. TECHNIQUE: Multiple axial CT images of the head were obtained without contrast. Sagittal and coronal reconstructions were done. A dose lowering technique was utilized adhering to the principles of ALARA . COMPARISON: 03/19/2024 FINDINGS: The CT findings are stable. There is no intra-axial or extra-axial fluid collection, hemorr amy, or mass. A small left lacunar infarct is redemonstrated. There is no midline shift. There is no focal attenuation abnormality appreciated elsewhere. The bone windows are negative. IMPRESSION: Stable exam demonstrating no acute intracranial process. Sensitivity of a noncontrast marla dy is limited with regard to metastatic disease. ACT 112: Negative or not required by law. The above report was generated using voice recognition software. It may contain grammatical, syntax o r spelling errors. Electronically signed by: Daisy Lacy M.D. 10/01/2024 12:52 PM
--- NOTE | 2024-10-01 13:04 | CT Scan Report ---
ABDOMEN AND PELVIS CT WITH IV CONTRAST CT DOSE: 4022.87 HISTORY: Gross hematuria syncope, metstatic bladder ca TECHNIQUE: Multiaxial CT images of the abdomen and pelvis were performed following the IV administrat ion of 94 cc of Optiray, A dose lowering technique was utilized adhering to the principles of ALARA. COMPARISON STUDY: 09/27/2024 FINDINGS: The only significant interval change since the prior study of 4 days ago as a presence of a large amount of blood/blood clot within the urinary bladder. There is a Zimmerman catheter in place. The echogenic areas present in the bladder as well. Elsewhere in the urinary tract, there is a left percutaneous nephrostomy in place. There is mild pyel ocaliectasis in the right kidney with no obstructive component identified. There is a generalized hepatic steatosis. The gallbladder and bile ducts are unremarkable. The pancre as, adrenal glands, and spleen demonstrate no significant lesions. There is no aortic aneurysm or periaortic adenopathy. No bowel obstruction or free air. No ascites. In the pelvis, there is no mass or adenopathy. There is no fluid in the cul-de-sac. The appendix is n ot identified. Sclerotic bone lesion involving the L2 vertebral body is once again noted. Lung bases unchanged demonstrating a trace left pleural effusion. IMPRESSION: Large area of hyperattenuating tissue has developed within the urinary bladder since the prior study. This is consistent with a large blood clot from the patient's known bladder cancer. ACT 112: Negative or not required by law. The above report was generated using voice recognition software. It may contain grammatical, syntax o r spelling errors. Electronically signed by: Daisy Lacy M.D. 10/01/2024 1:02 PM
--- NOTE | 2024-10-01 13:09 | CT Scan Report ---
CHEST CT WITH CONTRAST CT DOSE: 4022.87 mGy.cm HISTORY: syncope, metstatic bladder ca TECHNIQUE: Multiaxial CT images of the chest were performed following the IV administration of 90 cc of Optiray. A dose lowering technique was utilized adhering to the principles of ALARA. COMPARISON STUDY: Chest x-ray earlier today FINDINGS: There is moderate emphysema. There is a trace left pleural effusion. There is no pulmonary consolidation. No pneumothorax. There is a small area of groundglass opacity right middle lobe series 9 image 187. There are a few scattered small pulmonary nodules, largest a subpleural nodular density lateral left upper lobe image 165 measuring 1.1 cm and also anterior medial left upper lobe measures 6 mm image 116 no enlarged adenopathy. No pericardial effusion. There are coronary artery and aortic calcifications. No acute osseous findings.. IMPRESSION: 1. No lobar pneumonia. No pneumothorax. 2. Moderate emphysema. 3. A few pulmonary nodules for which follow-up chest CT recommended in 3-6 months. ACT 112: Positive. There are findings on this exam that require communication between the performing entity and the patient following Patient Test Result Information Act ([place] Act 112) guidelines. Electronically signed by: Isma Shields M.D. 10/01/2024 1:08 PM
--- NOTE | 2024-10-01 13:41 | Electrocardiogram Report ---
Test Reason : Blood Pressure : */* mmHG Vent. Rate : 105 BPM Atrial Rate : 105 BPM P-R Int : 136 ms QRS Dur : 70 ms QT Int : 366 ms P-R-T Axes : 49 24 37 degrees QTcB Int : 483 ms Sinus tachycardia Otherwise normal ECG When compared with ECG of 10-Sep-2024 16:19, No significant change was found Confirmed by Gera Castellanos ([id number]) on 10/01/2024 1:41:13 PM Referred By: Confirmed By: Gera Castellanos
[2024-10-01] MEDS: MAGNESIUM SULFATE / D5W 1 GM/100 ML BAG IV SCH (13:44)
[2024-10-01 13:54] LABS: Appearance Urine Clear (Clear); Bilirubin Urine Negative (Negative); Blood Urine 3+ (Negative); Color Urine Yellow; Glucose Urine UA Negative (Negative); Ketones Urine Negative (Negative); Leukocyte Esterase Urine 2+ (Negative); Nitrite Urine Negative (Negative); Protein Urine 1+ (Negative); Urobilinogen Urine Negative (Negative)
[2024-10-01 14:01] LABS: Epithelial Cell Urine 0-2 /hpf (0-2)
[2024-10-01 14:02] LABS: Bacteria Urine 2+ (None Seen); WBC Urine 21-50 /hpf (0-5)
[2024-10-01 14:05] LABS: Appearance Urine Cloudy (Clear); Specific Gravity Urine 1.006 (1.000-1.030)
[2024-10-01 14:10] LABS: Color Urine Red
[2024-10-01 14:13] LABS: Bacteria Urine None Seen (None Seen); Epithelial Cell Urine 0-2 /hpf (0-2); RBC Urine >20 /hpf (0-2); WBC Urine 21-50 /hpf (0-5)
[2024-10-01] MEDS: LORazepam 2 MG/1 ML VIAL IV STA (14:44)
--- NOTE | 2024-10-01 15:36 | History & Physical Report ---
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 Pt underwent resection/debulking of bladder tumor on 09/16, developed hematuria about four days ago, had King replaced two days ago due to urinary retention. Diagnosed with UTI in the ED on 09/27, started on cefpodoxime but this was changed to ciprofloxacin two days ago based on urine culture results. She presented to the ED today with new weakness, fatigue, and syncopal event - found to have acute blood loss anemia in the setting of hematuria with almost 4 g drop in hemoglobin. Pt was referred for admission for further management of hematuria and anemia. #Acute blood loss anemia #Gross hematuria - suspect related to recent procedure #Bladder cancer s/p recent resection/debulking #Complicated UTI - Admit to PCU - Pt receiving second unit of PRBCs in the ED - check H&H Q6hrs to monitor for stability post-transfusion - Urology consulted - spoke with NOEMÍ who recommended continued CBI, antibiotics for UTI. - IV levofloxacin for antibiotic coverage - spoke to pharmacy re: dosing, recommended 750 mg Q2 days - Has outpatient f/u with oncology next week to determine next steps in plan of care for cancer #Diabetes mellitus - type 2 - Diabetic diet - Insulin sliding scale #Acute on chronic hyponatremia - pt has taken salt tablets in the past but reports she is not currently taking - Resume sodium tablets - Follow labs #Hypomagnesemia - IV repletion started in the ED, ordered another 1 g mag sulfate - Repeat lab in AM #Hypertension - Chronic, continue home meds #Hypothyroid - Chronic, continue levothyroxine #Anxiety - Continue outpatient meds Pt seen and reviewed with collaborating physician, Dr. Morales. Plan of care discussed and as outlined above. Code status: full code DVT prophylaxis: TEDs for now due to acute blood loss, re-evaluate throughout admission Eventual PT/OT once more medically stable Rajinder Mei PA-C History of Present Illness Chief Complaint: syncope, hematuria Primary Care Provider: Patti Posadas MD This is a 73 y/o female with bladder cancer metastatic to lumbar spine, DM2, COPD, CKD3, PLMD, CAD w/ prior PA, nocturnal hypoxemia, hypothyroidism, HTN, anxiety, and other history as outlined below who presented to the ED today with syncope and hypotension in the setting of gross hematuria. Pt originally presented to urology in June 2024 after being seen in the ED in May for hematuria. She underwent outpatient cystoscopy on 07/03/24 that showed left sided bladder tumor. 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 She had a spot urine showing elevated metanephrine, normetanephrine, and total metanephrine, however, 24 hour urine was unremarkable. 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 On 09/16/24, pt underwent cystoscopy with partial resection of large bladder tumor, estimated to be 50-60% debulked but not amenable to complete resection. She also had a percutaneous left nephrostomy tube placed by IR due to left ureteropelvic obstruction. Since being discharged from [facility] [place], she developed recurrent issues with hematuria in her King catheter. Seen in the ED on 09/27 for this complaint and diagnosed with UTI - discharged on cefpodoxime. Urine culture from ED visit grew Klebsiella so antibiotic changed to ciprofloxacin on 09/29. However, pt has continued to have gross hematuria. Upon EMS arrival, pt had syncopized and was noted to have a BP of 60s/40s, so give 1L of crystalloid via pressure bag with improvement in BP and mentation. Yesterday, started feeling weak and tired. Today developed nausea but no vomiting. No fevers or chills. Allergies Allergy/AdvReac Type Severity Reaction Status Date / Time Sulfa (Sulfonamide Allergy Severe face Verified 09/09/24 17:07 Antibiotics) tongue lips swelling,HEADACHE codeine AdvReac Intermediate N/V Verified 09/09/24 17:07 amoxicillin AdvReac Mild YEAST Verified 09/09/24 17:07 INFECTION clavulanic acid AdvReac Mild YEAST Verified 09/09/24 17:07 INFECTION nitrofurantoin AdvReac Unknown liver Verified 09/09/24 17:07 [From Macrobid] injury Home Medications Medication Instructions Recorded Confirmed Type albuterol sulfate 2.5 mg/3 mL 2.5 mg continuous nebulization Q4H 02/17/24 10/01/24 History (0.083 %) solution for nebulization PRN Shortness Of Breath Or Wheezing albuterol sulfate 90 mcg/actuation 2 puff inhalation Q6H PRN 02/17/24 10/01/24 History aerosol inhaler (Ventolin HFA) Shortness Of Breath Or Wheezing atorvastatin 10 mg tablet 10 mg PO QAM 02/17/24 10/01/24 History cetirizine 10 mg tablet (Allergy 10 mg PO QAM 02/17/24 10/01/24 History Relief (cetirizine)) citalopram 20 mg tablet 20 mg PO DAILY 02/17/24 10/01/24 History doxepin 25 mg capsule 25 mg PO QAM 02/17/24 10/01/24 History famotidine 20 mg tablet 20 mg PO BID 02/17/24 10/01/24 History metformin 500 mg tablet 500 mg PO BIDM 02/17/24 10/01/24 History mirtazapine 30 mg tablet 30 mg PO HS 02/17/24 10/01/24 History montelukast 10 mg tablet 10 mg PO DAILY 02/17/24 10/01/24 History tizanidine 4 mg tablet 4 mg PO Q8H PRN muscle spasms 02/17/24 10/01/24 History vitamin B complex 1 cap PO DAILY 02/17/24 10/01/24 History diclofenac sodium 1 % topical gel 2 g topical QID PRN Pain 03/04/24 10/01/24 History (Arthritis Pain (diclofenac)) lorazepam 0.5 mg tablet 0.5 mg PO HS PRN ANXIETY/SLEEP 03/04/24 10/01/24 History perphenazine 2 mg tablet 6 mg PO HS 03/04/24 10/01/24 History turmeric 450 mg-turmeric root 1 cap PO DAILY 03/04/24 10/01/24 History extract 50 mg capsule vitamin E (dl, acetate) 180 mg 180 mg PO BID 03/04/24 10/01/24 History (400 unit) capsule citalopram 10 mg tablet (Celexa) 10 mg PO DAILY 06/06/24 10/01/24 History garlic 1,000 mg capsule 1,000 mg PO QAM 06/06/24 10/01/24 History magnesium oxide 400 mg PO DAILY 09/09/24 10/01/24 History sodium chloride 1,000 mg soluble 500 mg (1/2 x 1,000 mg) PO TID #30 09/11/24 10/01/24 Rx tablet tabs levothyroxine 150 mcg tablet 150 mcg PO DAILYBB #30 tabs 09/23/24 10/01/24 Rx cefpodoxime 200 mg tablet 200 mg PO DAILY 10 days #10 tabs 09/27/24 10/01/24 Rx metoprolol succinate 25 mg 12.5 mg PO BID 09/27/24 10/01/24 History tablet,extended release 24 hr aspirin 81 mg tablet,delayed 81 mg PO DAILY 10/01/24 10/01/24 History release ciprofloxacin HCl 500 mg tablet 500 mg PO DAILY 10/01/24 10/01/24 History olopatadine 0.2 % eye drops 1 drp ophthalmic (eye) QAM 10/01/24 10/01/24 History oxycodone-acetaminophen 5 mg-325 1 tab PO BID PRN pain 10/01/24 10/01/24 History mg tablet (Percocet) prazosin 5 mg capsule 10 mg PO BID 10/01/24 10/01/24 History triamcinolone acetonide 0.5 % 1 applic topical BID 10/01/24 10/01/24 History topical cream Past Med/Surg History Problem List Nephrostomy present (Acute) Obstruction of King catheter (Acute) Gross hematuria (Acute) Bladder cancer (Acute) Symptomatic anemia (Acute) Gross hematuria Acute blood loss anemia Bladder cancer (Chronic) Nephrostomy complication (Acute) Cystitis (Acute) Pheochromocytoma Weakness (Acute) ADI (acute kidney injury) (Acute) Paraganglioma Elevated LFTs (Acute) Bladder tumor Orthostatic hypotension (Acute) Neuroforaminal stenosis of lumbar spine Labile blood pressure CKD (chronic kidney disease), stage III Degenerative spondylolisthesis Lumbar stenosis with neurogenic claudication History of heart attack 1996- medically managed Diabetes mellitus, type II COPD (chronic obstructive pulmonary disease) Dyslipidemia Nocturnal hypoxemia 2L O2 HS Hypertension Hypothyroidism Anxiety and depression History of total left hip arthroplasty (~11/2019) Medical History ADI (acute kidney injury) Cervical pain Greater trochanteric bursitis of left hip Acid reflux well controlled Obesity Fatty liver Arthritis Degenerative disc disease Sciatica Thyroid enlarged no dysphagia Asthma mild, "well controlled and stable", rare inhaler use Surgical History History of colonoscopy History of left cataract surgery History of right cataract surgery History of right hip replacement History of hysterectomy History of hernia repair History of cardiac cath FOLLOWING HEART ATTACK, NO FINDINGS 1996 Family History Mother Family history of diabetes mellitus Aunt Family history of diabetes mellitus Son Family history of colon cancer Social History Smoking Status: Former smoker Tobacco Type: Cigarettes Second Hand Exposure: No; Do You Dip or Chew Tobacco: No; Hx Alcohol Use: No Hx Substance Use: No Preferred Language: Welsh Communication Ability: Effective Visual Impairment: No Limitations Hearing Ability: Normal Skull Chopper Required: No Beliefs That Will Affect Care: None Current Living Situation: Alone Current Living Situation Comment: caregiver somedays current occupational status: retired Other Information That Helps Us Care for You: No Feels Safe at Home: Yes Safety Concerns: Feels Safe At This Time Safety Concerns Comment: office of aging is visiting her tomorrow regarding getting more help @ home Assistive Devices: Denture - Upper and Walker Review of Systems Review of Systems: All systems reviewed & are unremarkable except as noted in Subjective Physical Exam Physical Exam: Please see physician note for details of the physical exam Results & Data Results & Data Vital Signs (Past 12 Hours) Vital Signs Temp Pulse Pulse Resp BP BP Pulse Ox 10/01/24 14:30 99 H 17 140/79 96 10/01/24 14:10 36.6 C 102 H 18 154/102 H 96 10/01/24 13:40 36.7 C 107 H 19 140/85 95 10/01/24 13:33 103 H 17 94 10/01/24 13:30 110/61 10/01/24 13:30 110/61 10/01/24 13:30 110/61 10/01/24 13:27 104 H 18 91 10/01/24 13:27 86/54 L 10/01/24 13:27 86/54 L 10/01/24 13:27 86/54 L 10/01/24 13:25 36.5 C 104 H 19 86/54 L 92 10/01/24 13:21 120/61 10/01/24 13:21 120/61 10/01/24 13:10 113/69 10/01/24 13:10 113/69 10/01/24 13:09 103 H 19 94 10/01/24 13:07 36.5 C 103 H 18 102/52 L 94 10/01/24 13:03 102/52 L 10/01/24 13:03 102/52 L 10/01/24 13:03 102/52 L 10/01/24 13:00 103 H 21 94 10/01/24 12:54 105 H 19 96 10/01/24 12:54 93/70 L 10/01/24 12:54 93/70 L 10/01/24 12:30 108/65 10/01/24 12:30 108/65 10/01/24 12:30 108/65 93 10/01/24 12:11 107/83 10/01/24 12:06 104 H 21 97 10/01/24 12:03 104 H 24 97 10/01/24 12:01 102/77 10/01/24 12:01 102/77 10/01/24 12:01 102/77 10/01/24 11:50 128/78 10/01/24 11:42 103 H 19 95 10/01/24 11:40 121/63 10/01/24 11:40 121/63 10/01/24 11:39 105 H 16 96 10/01/24 11:37 110/82 10/01/24 11:37 110/82 10/01/24 11:37 110/82 10/01/24 11:33 94 10/01/24 11:33 108 H 10/01/24 11:27 108 H 17 95 10/01/24 11:25 114/69 10/01/24 11:25 114/69 10/01/24 11:25 36.7 C 107 H 19 114/69 96 O2 Del Method 10/01/24 14:30 Room Air 10/01/24 14:10 10/01/24 13:40 10/01/24 13:33 10/01/24 13:30 10/01/24 13:30 10/01/24 13:30 10/01/24 13:27 10/01/24 13:27 10/01/24 13:27 10/01/24 13:27 10/01/24 13:25 10/01/24 13:21 10/01/24 13:21 10/01/24 13:10 10/01/24 13:10 10/01/24 13:09 10/01/24 13:07 10/01/24 13:03 10/01/24 13:03 10/01/24 13:03 10/01/24 13:00 10/01/24 12:54 10/01/24 12:54 10/01/24 12:54 10/01/24 12:30 10/01/24 12:30 10/01/24 12:30 10/01/24 12:11 10/01/24 12:06 10/01/24 12:03 10/01/24 12:01 10/01/24 12:01 10/01/24 12:01 10/01/24 11:50 10/01/24 11:42 Room Air 10/01/24 11:40 10/01/24 11:40 10/01/24 11:39 10/01/24 11:37 10/01/24 11:37 10/01/24 11:37 10/01/24 11:33 Room Air 10/01/24 11:33 10/01/24 11:27 10/01/24 11:25 10/01/24 11:25 10/01/24 11:25 Room Air Laboratory Results Lab Results 10/01/24 10/01/24 10/01/24 Range/Units 11:30 11:37 11:39 WBC 7.03 (4.8-10.8) K/ul RBC 2.50 L (4.20-5.40) M/uL Hgb 7.0 L (12.0-16.0) g/dl POC Hgb 6.8 L* (12.0-16.0) g/dl Hct 21.2 L (37.0-47.0) % POC Hct 20 L* (37-47) % MCV 84.8 (80.0-100.0) fL MCH 28.0 (25.0-34.0) pg MCHC 33.0 (32.0-36.0) g/dL RDW Std Deviation 40.0 (36.4-46.3) fL RDW Coeff of Jennifer 13.2 (11.5-14.5) % Plt Count 220 (130-400) K/uL MPV 11.3 (9.4-12.4) fL Immature Gran % (Auto) 0.3 % Neut % (Auto) 70.1 % Lymph % (Auto) 14.8 % [place] % (Auto) 12.1 % Eos % (Auto) 2.4 % Baso % (Auto) 0.3 % Neut # (Auto) 4.93 (1.40-6.50) K/uL Lymph # (Auto) 1.04 L (1.20-3.40) K/uL [place] # (Auto) 0.85 H (0.11-0.59) K/uL Eos # (Auto) 0.17 (0.00-0.50) K/uL Baso # (Auto) 0.02 (0.00-0.20) K/uL Immature Gran # (Auto) 0.02 (0.01-0.20) K/uL Polychromasia 1+ PT 11.1 (9.0-12.0) Seconds INR 1.0 (0.9-1.1) VBG pH 7.39 (7.36-7.41) VBG pCO2 40 (38-50) mmHg VBG pO2 34 mmHg VBG HCO3 24 mmol/L VBG O2 Saturation < 60.0 % VBG Base Excess -0.7 mEq/L POC Sodium 126 L (135-144) mmol/L Sodium 127 L (136-145) mmol/L POC Potassium 4.0 (3.3-5.0) mmol/L Potassium 4.0 (3.5-5.1) mmol/L POC Chloride 92 L (101-112) mmol/L Chloride 94 L (98-107) mmol/L Carbon Dioxide 25 (21-32) mmol/L POC Total CO2 22 L (24-31) mmol/L Anion Gap 8 (3-11) POC Anion Gap 17.0 (16-25) mmol/L POC BUN 9 (7-18) mg/dl BUN 11 (6-23) mg/dl Creatinine 1.47 H (0.6-1.2) mg/dl POC Creatinine 1.7 H (0.6-1.3) mg/dl Est Cr Clr Drug Dosing 36.1 ml/min eGFR 37.23 BUN/Creatinine Ratio 7.5 L (10-20) Glucose 120 H (70-99(Fasting)) mg/dl POC Glucose (other) 119 H (70-99) mg/dl Lactate 2.3 H* (0.4-2.0) mmol/L Calcium 8.2 L (8.6-10.3) mg/dl POC Ioniz Calcium Luz Maria 1.10 L (1.12-1.32) mmol/l Magnesium 1.4 L (1.7-2.4) mg/dl Total Bilirubin 0.3 (0.2-1.0) mg/dl Direct Bilirubin 0.0 (0-0.2) mg/dl AST 11 L (13-39) U/L ALT 9 (7-52) U/L Alkaline Phosphatase 124 H (34-104) U/L Troponin I High Sens 2.3 (0-14) pg/ml Total Protein 5.7 L (6.0-8.3) gm/dl Albumin 3.2 L (3.4-5.0) gm/dl Procalcitonin < 0.02 (0-0.5) ng/ml Urine Color Urine Appearance (Clear) Urine pH (4.5-7.5) Ur Specific Temple (1.000-1.030) Urine Protein (Negative) Urine Glucose (UA) (Negative) Urine Ketones (Negative) Urine Blood (Negative) Urine Nitrite (Negative) Urine Bilirubin (Negative) Urine Urobilinogen (Negative) Ur Leukocyte Esterase (Negative) Urine RBC (0-2) /hpf Urine WBC (0-5) /hpf Ur Epithelial Cells (0-2) /hpf Urine Bacteria (None Seen) Blood Type A Positive Antibody Screen NEGATIVE Crossmatch See Detail 10/01/24 10/01/24 Range/Units 13:33 13:34 WBC (4.8-10.8) K/ul RBC (4.20-5.40) M/uL Hgb (12.0-16.0) g/dl POC Hgb (12.0-16.0) g/dl Hct (37.0-47.0) % POC Hct (37-47) % MCV (80.0-100.0) fL MCH (25.0-34.0) pg MCHC (32.0-36.0) g/dL RDW Std Deviation (36.4-46.3) fL RDW Coeff of Jennifer (11.5-14.5) % Plt Count (130-400) K/uL MPV (9.4-12.4) fL Immature Gran % (Auto) % Neut % (Auto) % Lymph % (Auto) % [place] % (Auto) % Eos % (Auto) % Baso % (Auto) % Neut # (Auto) (1.40-6.50) K/uL Lymph # (Auto) (1.20-3.40) K/uL [place] # (Auto) (0.11-0.59) K/uL Eos # (Auto) (0.00-0.50) K/uL Baso # (Auto) (0.00-0.20) K/uL Immature Gran # (Auto) (0.01-0.20) K/uL Polychromasia PT (9.0-12.0) Seconds INR (0.9-1.1) VBG pH (7.36-7.41) VBG pCO2 (38-50) mmHg VBG pO2 mmHg VBG HCO3 mmol/L VBG O2 Saturation % VBG Base Excess mEq/L POC Sodium (135-144) mmol/L Sodium (136-145) mmol/L POC Potassium (3.3-5.0) mmol/L Potassium (3.5-5.1) mmol/L POC Chloride (101-112) mmol/L Chloride (98-107) mmol/L Carbon Dioxide (21-32) mmol/L POC Total CO2 (24-31) mmol/L Anion Gap (3-11) POC Anion Gap (16-25) mmol/L POC BUN (7-18) mg/dl BUN (6-23) mg/dl Creatinine (0.6-1.2) mg/dl POC Creatinine (0.6-1.3) mg/dl Est Cr Clr Drug Dosing ml/min eGFR BUN/Creatinine Ratio (10-20) Glucose (70-99(Fasting)) mg/dl POC Glucose (other) (70-99) mg/dl Lactate (0.4-2.0) mmol/L Calcium (8.6-10.3) mg/dl POC Ioniz Calcium Luz Maria (1.12-1.32) mmol/l Magnesium (1.7-2.4) mg/dl Total Bilirubin (0.2-1.0) mg/dl Direct Bilirubin (0-0.2) mg/dl AST (13-39) U/L ALT (7-52) U/L Alkaline Phosphatase (34-104) U/L Troponin I High Sens (0-14) pg/ml Total Protein (6.0-8.3) gm/dl Albumin (3.4-5.0) gm/dl Procalcitonin (0-0.5) ng/ml Urine Color Yellow Red Urine Appearance Clear Cloudy A (Clear) Urine pH 7.0 (4.5-7.5) Ur Specific [place] 1.010 1.006 (1.000-1.030) Urine Protein 1+ H (Negative) Urine Glucose (UA) Negative (Negative) Urine Ketones Negative (Negative) Urine Blood 3+ H (Negative) Urine Nitrite Negative (Negative) Urine Bilirubin Negative (Negative) Urine Urobilinogen Negative (Negative) Ur Leukocyte Esterase 2+ H (Negative) Urine RBC 6-10 H >20 H (0-2) /hpf Urine WBC 21-50 H 21-50 H (0-5) /hpf Ur Epithelial Cells 0-2 0-2 (0-2) /hpf Urine Bacteria 2+ H None Seen (None Seen) Blood Type Antibody Screen Crossmatch Diagnostic Findings Chest X-Ray 10/01/24 11:33 XR chest 1V portable CLINICAL HISTORY: Sepsis COMPARISON STUDY: 09/09/2024 FINDINGS: Single view portable chest demonstrates no acute cardiopulmonary process. There is no airspace opacity or pleural effusion. The heart and pulmonary vascularity are unremarkable for technique. IMPRESSION: No acute process ACT 112: Negative or not required by law. Electronically signed by: Daiys Lacy M.D. 10/01/2024 11:54 AM Abdomen/Pelvis CT 10/01/24 11:[address] WITH IV CONTRAST CT DOSE: 4022.87 HISTORY: Gross hematuria syncope, metstatic bladder ca TECHNIQUE: Multiaxial CT images of the abdomen and pelvis were performed following the IV administration of 94 cc of Optiray, A dose lowering technique was utilized adhering to the principles of ALARA. COMPARISON STUDY: 09/27/2024 FINDINGS: The only significant interval change since the prior study of 4 days ago as a presence of a large amount of blood/blood clot within the urinary bladder. There is a King catheter in place. The echogenic areas present in the bladder as well. Elsewhere in the urinary tract, there is a left percutaneous nephrostomy in place. There is mild pyelocaliectasis in the right kidney with no obstructive component identified. There is a generalized hepatic steatosis. The gallbladder and bile ducts are unremarkable. The pancreas, adrenal glands, and spleen demonstrate no significant lesions. There is no aortic aneurysm or periaortic adenopathy. No bowel obstruction or free air. No ascites. In the pelvis, there is no mass or adenopathy. There is no fluid in the cul-de-sac. The appendix is not identified. Sclerotic bone lesion involving the L2 vertebral body is once again noted. Lung bases unchanged demonstrating a trace left pleural effusion. IMPRESSION: Large area of hyperattenuating tissue has developed within the urinary bladder since the prior study. This is consistent with a large blood clot from the patient's known bladder cancer. ACT 112: Negative or not required by law. The above report was generated using voice recognition software. It may contain grammatical, syntax or spelling errors. Electronically signed by: Daisy Lacy M.D. 10/01/2024 1:[address] 10/01/24 11:[address] WITH CONTRAST CT DOSE: 4022.87 mGy.cm HISTORY: syncope, metstatic bladder ca TECHNIQUE: Multiaxial CT images of the chest were performed following the IV administration of 90 cc of Optiray. A dose lowering technique was utilized adhering to the principles of ALARA. COMPARISON STUDY: Chest x-ray earlier today FINDINGS: There is moderate emphysema. There is a trace left pleural effusion. There is no pulmonary consolidation. No pneumothorax. There is a small area of groundglass opacity right middle lobe series 9 image 187. There are a few scattered small pulmonary nodules, largest a subpleural nodular density lateral left upper lobe image 165 measuring 1.1 cm and also anterior medial left upper lobe measures 6 mm image 116 no enlarged adenopathy. No pericardial effusion. There are coronary artery and aortic calcifications. No acute osseous findings.. IMPRESSION: 1. No lobar pneumonia. No pneumothorax. 2. Moderate emphysema. 3. A few pulmonary nodules for which follow-up chest CT recommended in 3-6 months. ACT 112: Positive. There are findings on this exam that require communication between the performing entity and the patient following Patient Test Result Information Act ([place] Act 112) guidelines. Electronically signed by: Isma Shields M.D. 10/01/2024 1:[address] 10/01/24 11:39 CT head/brain wo con CLINICAL HISTORY: syncope, metstatic bladder ca. TECHNIQUE: Multiple axial CT images of the head were obtained without contrast. Sagittal and coronal reconstructions were done. A dose lowering technique was utilized adhering to the principles of ALARA. COMPARISON: 03/19/2024 FINDINGS: The CT findings are stable. There is no intra-axial or extra-axial fluid collection, hemorrhage, or mass. A small left lacunar infarct is redemonstrated. There is no midline shift. There is no focal attenuation abnormality appreciated elsewhere. The bone windows are negative. IMPRESSION: Stable exam demonstrating no acute intracranial process. Sensitivity of a noncontrast study is limited with regard to metastatic disease. ACT 112: Negative or not required by law. The above report was generated using voice recognition software. It may contain grammatical, syntax or spelling errors. Electronically signed by: Daisy Lacy M.D. 10/01/2024 12:52 PM Medications Administered Discontinued Medications Acetaminophen (Ofirmev) 1,000 mg in 100 mls @ 400 mls/hr IV NOW STA Stop: 10/01/24 12:23 Last Infusion: 10/01/24 13:00 Dose: Infused Documented By: Admin: 10/01/24 12:17 Dose: 400 mls/hr Documented By: MORGAN Famotidine (Pepcid 20mg Iv Push) 20 mg in 5 mls @ 2.5 mls/min IV NOW STA Stop: 10/01/24 12:10 Last Admin: 10/01/24 12:17 Dose: 2.5 mls/min Documented By: BS Magnesium Sulfate/Dextrose (Magnesium Sulfate / D5w) 1 gm in 100 mls @ 100 mls/hr IV Q1H EROS Stop: 10/01/24 14:39 Last Admin: 10/01/24 14:47 Dose: 100 mls/hr Documented By: Infusion: 10/01/24 14:44 Dose: Infused Documented By: Admin: 10/01/24 13:44 Dose: 100 mls/hr Documented By: BS Ioversol (Optiray 320 100ml) 94 ml IV ONCE ONE Stop: 10/01/24 12:40 Last Admin: 10/01/24 12:40 Dose: 94 ml Documented By: DEV Lorazepam (Lorazepam 2 Mg/1 Ml Vial) 0.5 mg IV NOW STA Stop: 10/01/24 14:39 Last Admin: 10/01/24 14:44 Dose: 0.5 mg Documented By: MONIQUE Morphine Sulfate (Morphine Sulfate 2 Mg/Ml Carp) 2 mg IV NOW STA Stop: 10/01/24 12:10 Last Admin: 10/01/24 12:17 Dose: 2 mg Documented By: MORGAN Ondansetron HCl (Ondansetron Inj 2 Mg/Ml 2 Ml Vial) 4 mg IV NOW STA Stop: 10/01/24 12:10 Last Admin: 10/01/24 12:17 Dose: 4 mg Documented By: MORGAN Supervising Physician Co-Signing Physician Notes 73 y/o F w/ PMH of 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 After her aforementioned procedure [place] [facility] [place], she had recurrent episodes of hematuria and was evaluated in the ED on 09/27 when urine culture was obtained which came back positive for UTI. 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 Patient denies febrile illness. Patient reports poor appetite and nausea, denies vomiting or diarrhea. Patient denies sore throat or cough or chest pain. Because of increasing abd pain and generalized weakness, EMS was called. Upon EMS arrival, pt had syncopized and was noted to have BP of 60s/40s, so given 1L of crystalloid via pressure bag with improvement in BP and mentation. Acute blood loss anemia secondary to Hematuria: Admitting hemoglobin of 7.0, status post 1 unit PRBC by the time of bedside exam. Continue to monitor H&H every 6 hours, transfuse for hemoglobin less than 7.5 or for symptomatic anemia. Hematuria secondary to operative complication. Urology consult. History of bladder tumor status post recent tumor resection, see above Generalized weakness and hypotension: Secondary to acute blood loss anemia and poor appetite prior to arrival. UTI: Continue with levofloxacin IV while in patient. Follow admitting blood and urine culture. 09/27 Urine Cx reviewed. Acute on chronic hyponatremia: Patient appears to have mild hyponatremia at baseline, sodium at presentation 127, patient with poor appetite prior to arrival and not taking her sodium tab at home. Expect to improve with improvement in her appetite. Resume sodium tab. Metabolic encephalopathy: Secondary to hypotension and in the setting of acute blood loss anemia. Mentation improved with fluid resuscitation and improvement in her blood pressure. Hypomagnesemia: Monitor replete. Increase blood lactic acid level: Secondary to acute blood loss anemia, trend until normal, continue with fluid and fluid resuscitation. Status post PRBC transfusion. Hypertension: labetalol 5 mg iv q6h prn for SBP > 175 mmHg. On exam: GENERAL: Alert and oriented x3. NAD, on RA. HEENT: No pallor, no icterus. Pupils equal, round and reactive to light. Oral mucosa moist. NECK: No JVD, no neck masses. HEART: S1 and S2 heard. Regular rate and rhythm. No murmur, no gallop. RESPIRATORY SYSTEM: Normal AP diameter. No accessory muscle use. No wheezing, no crackles. ABDOMEN: Soft, bowel sounds present, lower belly mildly tender, no distention. CENTRAL NERVOUS SYSTEM: No facial droop. Speech is clear. Obeys simple commands. Moves extremities. EXTREMITIES: 1-2+ ble edema, no erythema seen. Three-way king cath in, light red urine in the bags noted. Left nephrostomy cath noted. I have seen and examined the patient and have discussed the case with the provider above. I agree with the assessment and plan as stated. Time spent independently: 45 min (3) Bladder cancer Bladder location: lateral wall Qualified Code(s): C67.2 - Malignant neoplasm of lateral wall of bladder (4) CKD (chronic kidney disease), stage III Chronic kidney disease stage 3 subtype: unspecified whether 3a or 3b Qualified Code(s): N18.30 - Chronic kidney disease, stage 3 unspecified (5) Diabetes mellitus, type II Diabetes mellitus complication status: with other specified complication Diabetes mellitus half-way insulin use: without director long term care use Qualified Code(s): E11.69 - Type 2 diabetes mellitus with other specified complication (6) COPD (chronic obstructive pulmonary disease) COPD type: unspecified COPD Qualified Code(s): J44.9 - Chronic obstructive pulmonary disease, unspecified
--- NOTE | 2024-10-01 15:56 | Urology Consultation ---
<Statement entered by Jamal Vicente MD - 10/02/24 07:53> 73-year-old female recently s/p transurethral resection of bladder tumor at outside facility. Now returned with ongoing hematuria. Bladder was full of clot on CT scan, but hopefully now free of clot after hand irrigation. Would continue to wean CBI. If catheter becomes obstructed would recommend further hand irrigation to remove any additional clots. Urology will follow along. Date of Consultation October 01, 2024 Assessment & Plan (1) Bladder cancer: (2) Bladder tumor: (3) Hematuria: (4) Urinary tract infection: 73-year-old female with history of bladder cancer status post TURBT (09/16/24) and left nephrostomy tube placement at [facility] who presented to the emergency department today for evaluation of hematuria and clot retention. Patient afebrile, hypertensive with history of labile blood pressures Labs reviewedcreatinine 1.47, WBC 7.03, hemoglobin 7.0 Patient receiving 1 unit of PRBCs at present with another unit ordered Continue to trend labs and transfuse as necessary per hospital medicine service Urine and blood cultures are pending Prior urine culture on 09/27 grew out Klebsiella, Citrobacter and Morganella CT abdomen pelvis on arrival shows a significant amount of clot within the bladder; left nephrostomy in good position Three-way Zimmerman catheter was placed by nursing on arrival and CBI was initiated On my arrival, I stopped CBI and copiously irrigated patient's catheter with removal of significant amount of clots CBI was resumed after manually irrigating catheter If catheter becomes obstructed, then recommend stop CBI and manually irrigate catheter to remove clot Continue antibiotics and supportive care per hospital medicine service Make n.p.o. at midnight to reassess for possible cystoscopy and clot evacuation if indicated will follow closely History of Present Illness Reason for Consultation: Hematuria History of Present Illness This is a 73-year-old female with past medical history of COPD, diabetes, hypertension, CKD, and bladder mass suspicious for paraganglioma/pheochromocytoma who follows with our service as well as [facility]. She is status post TURBT at [facility] on 09/16/2024, left nephrostomy tube placement on 09/17/2024. She presented to the emergency department today via EMS for gross hematuria and clot retention of her Zimmerman catheter. Per admitting notes, when EMS arrived she had syncopized and was hypotensive. Blood pressures improved with fluid resuscitation. On arrival to ED, she was afebrile, tachycardic, normotensive. Lab work showed WBC 7.03, hemoglobin 7.0, sodium 127, creatinine 1.47, lactate 2.3. Urinalysis showed 3+ blood, 2+ LE, 6- 10 RBC, 21-50 WBC and 2+ bacteria. Urine and blood cultures collected. Workup in ED included CT abdomen pelvis with IV contrast which demonstrated a large area of clot within the bladder, Zimmerman in place. Left percutaneous nephrostomy in place. Nursing placed a 22 [place] three-way catheter and started continuous bladder irrigation. Urology was consulted for hematuria with clot retention. Patient seen and examined at bedside in the emergency department. Patient awake and resting in litter. Son and daughter present. Patient reports that she developed hematuria and went to ED on 09/[address] at that time showed no significant clot within the bladder. She was discharged with antibiotics for presumed UTI, which were subsequently switched to ciprofloxacin after culture data resulted. She reports she had been voiding spontaneously until early this week. Then developed difficulty voiding, so catheter was placed by home nursing. Since then, has had issues with catheter obstruction. Currently she reports some bladder discomfort and pressure. Denies fever or chills at home. Left nephrostomy tube has been draining clear urine. Allergies Allergy/AdvReac Type Severity Reaction Status Date / Time Sulfa (Sulfonamide Allergy Severe face Verified 09/09/24 17:07 Antibiotics) tongue lips swelling,HEADACHE codeine AdvReac Intermediate N/V Verified 09/09/24 17:07 amoxicillin AdvReac Mild YEAST Verified 09/09/24 17:07 INFECTION clavulanic acid AdvReac Mild YEAST Verified 09/09/24 17:07 INFECTION nitrofurantoin AdvReac Unknown liver Verified 09/09/24 17:07 [From Macrobid] injury Home Medications Medication Instructions Recorded Confirmed Type albuterol sulfate 2.5 mg/3 mL 2.5 mg continuous nebulization Q4H 02/17/24 10/01/24 History (0.083 %) solution for nebulization PRN Shortness Of Breath Or Wheezing albuterol sulfate 90 mcg/actuation 2 puff inhalation Q6H PRN 02/17/24 10/01/24 History aerosol inhaler (Ventolin HFA) Shortness Of Breath Or Wheezing atorvastatin 10 mg tablet 10 mg PO QAM 02/17/24 10/01/24 History cetirizine 10 mg tablet (Allergy 10 mg PO QAM 02/17/24 10/01/24 History Relief (cetirizine)) citalopram 20 mg tablet 20 mg PO DAILY 02/17/24 10/01/24 History doxepin 25 mg capsule 25 mg PO QAM 02/17/24 10/01/24 History famotidine 20 mg tablet 20 mg PO BID 02/17/24 10/01/24 History metformin 500 mg tablet 500 mg PO BIDM 02/17/24 10/01/24 History mirtazapine 30 mg tablet 30 mg PO HS 02/17/24 10/01/24 History montelukast 10 mg tablet 10 mg PO DAILY 02/17/24 10/01/24 History tizanidine 4 mg tablet 4 mg PO Q8H PRN muscle spasms 02/17/24 10/01/24 History vitamin B complex 1 cap PO DAILY 02/17/24 10/01/24 History diclofenac sodium 1 % topical gel 2 g topical QID PRN Pain 03/04/24 10/01/24 History (Arthritis Pain (diclofenac)) lorazepam 0.5 mg tablet 0.5 mg PO HS PRN ANXIETY/SLEEP 03/04/24 10/01/24 History perphenazine 2 mg tablet 6 mg PO HS 03/04/24 10/01/24 History turmeric 450 mg-turmeric root 1 cap PO DAILY 03/04/24 10/01/24 History extract 50 mg capsule vitamin E (dl, acetate) 180 mg 180 mg PO BID 03/04/24 10/01/24 History (400 unit) capsule citalopram 10 mg tablet (Celexa) 10 mg PO DAILY 06/06/24 10/01/24 History garlic 1,000 mg capsule 1,000 mg PO QAM 06/06/24 10/01/24 History magnesium oxide 400 mg PO DAILY 09/09/24 10/01/24 History sodium chloride 1,000 mg soluble 500 mg (1/2 x 1,000 mg) PO TID #30 09/11/24 0 10/01/24 Rx tablet tabs levothyroxine 150 mcg tablet 150 mcg PO DAILYBB #30 tabs 09/23/24 10/01/24 Rx cefpodoxime 200 mg tablet 200 mg PO DAILY 10 days #10 tabs 09/27/24 10/01/24 Rx metoprolol succinate 25 mg 12.5 mg PO BID 09/27/24 10/01/24 History tablet,extended release 24 hr aspirin 81 mg tablet,delayed 81 mg PO DAILY 10/01/24 10/01/24 History release ciprofloxacin HCl 500 mg tablet 500 mg PO DAILY 10/01/24 10/01/24 History olopatadine 0.2 % eye drops 1 drp ophthalmic (eye) QAM 10/01/24 10/01/24 History oxycodone-acetaminophen 5 mg-325 1 tab PO BID PRN pain 10/01/24 10/01/24 History mg tablet (Percocet) prazosin 5 mg capsule 10 mg PO BID 10/01/24 10/01/24 History triamcinolone acetonide 0.5 % 1 applic topical BID 10/01/24 10/01/24 History topical cream Patient History Medical History ADI (acute kidney injury) Cervical pain Greater trochanteric bursitis of left hip Acid reflux well controlled Obesity Fatty liver Arthritis Degenerative disc disease Sciatica Thyroid enlarged no dysphagia Asthma mild, "well controlled and stable", rare inhaler use Surgical History History of colonoscopy History of left cataract surgery History of right cataract surgery History of right hip replacement History of hysterectomy History of hernia repair History of cardiac cath FOLLOWING HEART ATTACK, NO FINDINGS 1996 Family History Mother Family history of diabetes mellitus Aunt Family history of diabetes mellitus Son Family history of colon cancer Social History Smoking Status: Former smoker Tobacco Type: Cigarettes Second Hand Exposure: No; Do You Dip or Chew Tobacco: No; Hx Alcohol Use: No Hx Substance Use: No Preferred Language: Niuean Communication Ability: Effective Visual Impairment: No Limitations Hearing Ability: Normal Metal Moulder Required: No Beliefs That Will Affect Care: None Current Living Situation: Alone and Personal Care Facility Current Living Situation Comment: caregiver somedays current occupational status: retired Feels Safe at Home: Yes Safety Concerns Comment: office of aging is visiting her tomorrow regarding getting more help @ home Assistive Devices: CPAP, Raised Toilet Seat and Walker Review of Systems Review of Systems: All systems reviewed & are unremarkable except as noted in HPI & below Physical Exam Constitutional: + obese; no acute distress Respiratory: no respiratory distress and no labored breathing Musculoskeletal: Head/Neck/Chest: normocephalic Neurologic: moves all extremities and awake Psychiatric: Orientation: alert, oriented x 3 and cooperative Genitourinary: Zimmerman draining light daly urine with CBI running. On arrival, I clamped CBI. I copiously irrigated patient's Zimmerman catheter with sterile water and removed significant amount of clots. Irrigated Zimmerman with approximately 2 L in total. At completion of irrigation, urine was dark pink. CBI was resumed on slow after catheter was manually irrigated. Patient tolerated procedure well. Results & Data Vital Signs (Past 12 Hours) Vital Signs Temp Pulse Pulse Resp BP BP Pulse Ox 10/01/24 15:32 96 H 10/01/24 14:30 99 H 17 140/79 96 10/01/24 14:10 36.6 C 102 H 18 154/102 H 96 10/01/24 13:40 36.7 C 107 H 19 140/85 95 10/01/24 13:33 103 H 17 94 10/01/24 13:30 110/61 10/01/24 13:30 110/61 10/01/24 13:30 110/61 10/01/24 13:27 104 H 18 91 10/01/24 13:27 86/54 L 10/01/24 13:27 86/54 L 10/01/24 13:27 86/54 L 10/01/24 13:25 36.5 C 104 H 19 86/54 L 92 10/01/24 13:21 120/61 10/01/24 13:21 120/61 10/01/24 13:10 113/69 10/01/24 13:10 113/69 10/01/24 13:09 103 H 19 94 10/01/24 13:07 36.5 C 103 H 18 102/52 L 94 10/01/24 13:03 102/52 L 10/01/24 13:03 102/52 L 10/01/24 13:03 102/52 L 10/01/24 13:00 103 H 21 94 10/01/24 12:54 105 H 19 96 10/01/24 12:54 93/70 L 10/01/24 12:54 93/70 L 10/01/24 12:30 108/65 10/01/24 12:30 108/65 10/01/24 12:30 108/65 93 10/01/24 12:11 107/83 10/01/24 12:06 104 H 21 97 10/01/24 12:03 104 H 24 97 10/01/24 12:01 102/77 10/01/24 12:01 102/77 10/01/24 12:01 102/77 10/01/24 11:50 128/78 10/01/24 11:42 103 H 19 95 10/01/24 11:40 121/63 10/01/24 11:40 121/63 10/01/24 11:39 105 H 16 96 10/01/24 11:37 110/82 10/01/24 11:37 110/82 10/01/24 11:37 110/82 10/01/24 11:33 94 10/01/24 11:33 108 H 10/01/24 11:27 108 H 17 95 10/01/24 11:25 114/69 10/01/24 11:25 114/69 10/01/24 11:25 36.7 C 107 H 19 114/69 96 O2 Del Method 10/01/24 15:32 10/01/24 14:30 Room Air 10/01/24 14:10 10/01/24 13:40 10/01/24 13:33 10/01/24 13:30 10/01/24 13:30 10/01/24 13:30 10/01/24 13:27 10/01/24 13:27 10/01/24 13:27 10/01/24 13:27 10/01/24 13:25 10/01/24 13:21 10/01/24 13:21 10/01/24 13:10 10/01/24 13:10 10/01/24 13:09 10/01/24 13:07 10/01/24 13:03 10/01/24 13:03 10/01/24 13:03 10/01/24 13:00 10/01/24 12:54 10/01/24 12:54 10/01/24 12:54 10/01/24 12:30 10/01/24 12:30 10/01/24 12:30 10/01/24 12:11 10/01/24 12:06 10/01/24 12:03 10/01/24 12:01 10/01/24 12:01 10/01/24 12:01 10/01/24 11:50 10/01/24 11:42 Room Air 10/01/24 11:40 10/01/24 11:40 10/01/24 11:39 10/01/24 11:37 10/01/24 11:37 10/01/24 11:37 10/01/24 11:33 Room Air 10/01/24 11:33 10/01/24 11:27 10/01/24 11:25 10/01/24 11:25 10/01/24 11:25 Room Air PG Care Time/CCT Total # of Minutes Spent Total Time Spent with Patient: Total time spent is greater than 50% in coordination of care (as documented) at patient's floor/unit and/or counseling patient: Coding Level of Care Code 41081 INT INP/OBS CARE 3/75MIN Diagnoses Malignant neoplasm of lateral wall of urinary bladder C67.2 Bladder location: lateral wall Bladder tumor D49.4 Hematuria R31.9 Hematuria type: unspecified type Urinary tract infection N30.01 Hematuria presence: with hematuria Urinary tract infection type: acute cystitis (1) Bladder cancer Bladder location: lateral wall Qualified Code(s): C67.2 - Malignant neoplasm of lateral wall of bladder (3) Hematuria Hematuria type: unspecified type Qualified Code(s): R31.9 - Hematuria, unspecified (4) Urinary tract infection Hematuria presence: with hematuria Urinary tract infection type: acute cystitis Qualified Code(s): N30.01 - Acute cystitis with hematuria
[2024-10-01] MEDS: levoFLOXacin/D5W 500 MG/100 ML BAG IV STA (16:40)
[2024-10-01] MEDS: MoRPHine SULFATE 2 MG/ML CARP IV PRN (16:40)
--- OUTSIDE RECORDS SUMMARY | 2024-10-01 17:22 | External Medical Summary | Summary of Care ---
Author Name Unknown Organization [facility] Address [address] [facility] [place] [place] [address] Phone [phone] Care Team Providers Care Shirt Operator Name Role Phone Patti Posadas MD Primary Care Provider [phone] Reason for Visit * Reason Comments eRx-Medication Refill Encounter Details Date Type Department Care Team (Late st Contact Info) Description 09/29/2024 Refill [facility] [address] [place] [phone] Patti Posadas MD [address] [place] [address] Allergic rhinitis due to other allergic trigger, unspecified seasonality; Dyslipidemia Allergies Active Allergy Reactions Criticality Noted Date Comments Amoxicillin-Pot Clavulanate Other (Please comment) 01/14/2015 Severe Yeast infection Nitrofurantoin Liver complications (Please comment) 07/13/2024 See [facility] hospitalization dated 07/08/24 Morphine And Codeine Unknown 02/19/2003 Codeine makes her vomit Sulfa Antibiotics Edema face/lips/tongue,Oth er (Please comment) High 02/19/2003 Headache documented as of this encounter (statuses as of 09/30/2024) Medications PERPHENAZINE 2 MG PO TABS Take 3 Tablets by mouth at bedtime. 02/10/20 14 Active LORAzepam (ATIVAN) 0.5 MG Tablet Take 1 Tablet by mouth at bedtime as needed for Anxiety or Insomnia. 30 Tab 0 08/22/19 16 Active doxepin (SINEQUAN) 25 MG Capsule Take [...] by mouth at bedtime. 10/29/19 24 Active Albuterol Sulfate HFA 108 (90 [...] morning. 15 mL 3 12/13/19 24 Active Famotidine 20 MG Oral Tablet (Pepcid) Take 1 Tablet by mouth in the morning and 1 Tablet before bedtime. 180 Tablet 2 12/16/19 24 Active Turmeric Curcumin 500 MG Oral Capsule Take 1 Capsule by mouth in the morning. Every morning.. 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 Rinse mouth after use.. 180 Each 3 03/27/20 24 Active Aspirin Low Dose 81 MG Oral Tablet Delayed Release (aspirin enteric coated) TAKE ONE TABLET BY MOUTH EVERY MORNING 90 Tablet 3 04/24/20 24 Active Nystatin 343476 UNIT/GM External Powder (Nystop)Indication s:Candidal skin infection APPLY TOPICALLY TO THE AFFECTED AREA THREE TIMES DAILY 30 g 3 05/07/20 24 Active Bladder Control Pads RegularIndications :Urinary incontinence Patient using 8-10 pads daily; 1 month supply = Qty 300 300 Each 12 06/26/19 25 Active Fluticasone Propionate 50 MCG/ACT Nasal Suspension (Flonase)Indicatio ns:Chronic rhinitis INSTILL 2 SPRAYS INTO EACH NOSTRIL DAILY 48 g 3 09/03/19 25 Active Cetirizine HCl 10 MG Oral Tablet (ZyrTEC) TAKE ONE TABLET BY MOUTH EVERY MORNING 90 Tablet 3 09/13/19 25 Active Prazosin HCl 5 MG Oral Capsule (Minipress) Take 2 Capsules by mouth in the morning and 2 Capsules before bedtime. 09/12/19 25 Active Sodium Chloride 1 GM Oral Tablet Take 0.5 Tablets by mouth in the morning and 0.5 Tablets at noon and 0.5 Tablets before bedtime. TAKE WITH PRAZOSIN. 09/12/19 25 Active Fluconazole 100 MG Oral Tablet (Diflucan) Take 1 Tablet by mouth in the morning. 09/08/19 25 Active Metoprolol Succinate ER 25 MG Oral Tablet Extended Release 24 Hour (Toprol XL) Take 1/2 tablet by mouth in the morning and 1/2 tablet before bedtime. 30 Tablet 09/15/2024 11:18 AM EDT 09/16/19 25 Active Normal Saline Flush 0.9 % Intravenous Solution Use 1 syringe (10 ml) to flush left PCN tube every 2 to 3 days - more often if with decreased uninary output 600 mL 09/23/2024 11:27 AM EDT 09/23/19 25 Active Cefpodoxime Proxetil 200 MG Oral Tablet Take 1 Tablet by mouth in the morning. 09/28/19 025 Active Levothyroxine Sodium 150 MCG Oral Tablet (Levoxyl) Take 1 Tablet by mouth daily first thing in the morning. (at least 30 min prior to breakfast or other meds) Active oxyCODONE-Acetamin ophen 5-325 MG Oral Tablet (Percocet) Take 1 Tablet by mouth 2 times a day as needed for Pain, Severe. 60 Tablet 09/29/19 25 Active Atorvastatin Calcium 10 MG Oral Tablet (Lipitor)Indicatio ns:Dyslipidemia Take 1 Tablet by mouth at bedtime. In the morning. 90 Tablet 09/29/19 25 Active metFORMIN HCl 500 MG Oral Tablet (Glucophage) TAKE ONE TABLET BY MOUTH TWICE DAILY with morning and evening meals. 180 Tablet 09/29/19 25 Active Montelukast Sodium 10 MG Oral Tablet (Singulair)Indicat ions:Allergic rhinitis due to other allergic trigger, unspecified seasonality Take 1 Tablet by mouth in the morning. In the morning.. 90 Tablet 09/29/19 25 Active Garlic 1000 MG Oral Capsule TAKE ONE CAPSULE BY MOUTH EVERY MORNING 90 Capsule 10/01/19 25 Active Garlic 1000 MG Oral Capsule Take 1 Capsule by mouth in the morning. 90 Capsule 2 12/16/19 24 025 Discontin ued(Refil l) documented as of this encounter (statuses as of 09/30/2024) Active Problems Problem Noted Date Diagnosed Date [...] disorder) 03/25/2018 Gastroesophageal reflux disease 03/25/2018 Old IA (myocardial infarction) 03/25/2018 Mild persistent asthma without [...] as of this encounter (statuses as of 09/30/2024) Resolved Problems Problem Noted Date Diagnosed Date Resolved Date Type 2 diabetes mellitus wit h stage 3a chronic kidney disease, without long-term current use of insulin 07/04/2023 08/01/2023 Type 2 diabetes mellitus wit h stage 3a chronic kidney disease 10/25/2020 09/28/2024 Overview: Per CKD protocol Recurrent major depressive disorder 08/31/2020 07/04/2023 Diabetes [...] and 6 MWT Genetic Sleep Disorder [facility] Other*[id number] 08/27/2011 01/18/2016 Routine general medical exam ination [...] as of this encounter (statuses as of 09/30/2024) Immunizations Name Administration Dates Next Due COVID-19 [...] Date Recorded PHQ Adult Total Score 0 09/21/2024 Hunger Vital Sign Answer Date Recorded Within the past 12 months, y ou worried that your food would run out before you got the money to buy more. Never true 09/22/19 25 Within the past 12 months, t he food you bought just didn't last and you didn't have money to get more. Never true 09/21/2024 Childcare Answer Date Recorded Do you feel overwhelmed with taking care of a child, family member or friend? No 09/21/2024 Does your family need help f inding childcare? (Household - for ages 0-17 years) Not on file 09/21/2024 Clothing Answer Date Recorded Have you been unable to get clothing when it was really needed? No 09/21/2024 Is your family able to get c lothes or diapers when needed? (Household - for ages 0-17 years) Not on file 09/21/2024 Personal Safety Answer Date Recorded Do you feel unsafe or have concerns for your saf ety? No 09/21/2024 Do you have concerns for you r family's safety? (Household - for ages 0-17 years) Not on file 09/21/2024 Utilities Answer Date Recorded Do you have trouble paying y our heating, water, or electric bill? No 09/21/2024 Is your family able to pay t he heat, water, or electric bill? (Household - for ages 0-17 years) Not on file 09/21/2024 Does your family have access to good internet? (Household - for ages 0-17 years) Not on file 09/21/2024 Employment Status Answer Date Recorded Are you unemployed or without regular income? No 09/21/2024 Does the household have a re gular source of income? (Household - for ages 0-17 years) Not on file 09/21/2024 Social Connections Answer Date Recorded How often do you feel lonely or isolated from th ose around you? Never 09/21/2024 Financial Resource Strain Answer Date R ecorded Do you have any trouble payi ng for your medications, or do you think you might in the future? No 09/21/2024 Does your family have troubl e paying for medicine? (Household - for ages 0-17 years) Not on file 09/21/2024 Transportation Needs Answer Date Record ed Do you have trouble getting a ride to medical visits or work? (Adult - for ages 18 years and over) Not on file 09/21/2024 Does your family have a hard time getting a ride to doctors visits? (Household - for ages 0-17 years) Not on file 09/21/2024 Has lack of transportation k ept you from medical appointments, meetings, work, or from getting things needed for daily living? Check all that apply. No 09/21/2024 Do you (or your family) have trouble finding or paying for a ride (transportation)? (Household - for ages 0-17 years) Not on file 09/21/2024 Housing Stability Answer Date Recorded Do you currently live in a s helter or have no steady place to sleep at night? No 09/21/2024 Do you think you are at risk of becoming homeless? (Adult - for ages 18 years and over) Not on file 09/21/2024 Does your family worry about paying for your home or becoming homeless? (Household - for ages 0-17 years) Not on file 0 09/21/2024 Are you homeless or worried that you might be in the future? No 09/21/2024 Are you (or your family) michelle eless [...] the money to buy more. Never true 09/22/19 25 Within the past 12 months, t he food you bought just didn't last and you didn't have money to get more. Never true 09/21/2024 Do you need food for this week? 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 Not on file Not on file Not on file disability Not on file Not on file Not on file documented as of this encounter Miscellaneous Notes * Telephone Encounter - Patti Posadas MD - 09/30/2024 12:21 PM EDTSigned Prescriptions: Disp Refills Garlic 1000 MG Oral Capsule 90 Cap*3 Sig: TAKE ONE CAPSULE BY MOUTH EVERY MORNING Authorizing Provider: PATTI POSADAS Refused Prescriptions: Disp Refills Montelukast Sodium 10 MG Oral Tablet (Sing*90 Tab*2 Sig: TAKE ONE TABLET BY MOUTH EVERY MORNING Refused By: LONDON TORRES Reason for Refus al: Too soon Atorvastatin Calcium 10 MG Oral Tablet (Li*90 Tab*2 Sig: TAKE ONE TABLET BY MOUTH EVERY MORNING Refused By: LONDON TORRES Reason for Refusal: Too soon * Telephone Encounter - London Torres [facility] - 09/30/2024 10:17 AM EDT Pending Prescriptions: Disp Refills Garlic 1000 MG Oral Capsule 90 Cap*2 Sig: TAKE ONE CAPSULE BY MOUTH EVERY MORNING Refused Prescriptions: Disp Refills Montelukast Sodium 10 MG Oral Tablet (Sing*90 Tab*2 Sig: TAKE ONE TABLET BY MOUTH EVERY MORNING Refused By: LONDON TORRES Reason for Refusal: Too soon Atorvastatin Calcium 10 MG Oral Tablet (Li*90 Tab*2 Sig: TAKE ONE TABLET BY MOUTH EVERY MORNING Refused By: LONDON TORRES Reason for Refusal: Too soon * Telephone Encounter - London Torres [facility] - 09/30/2024 10:17 AM EDT [facility] is currently not authorized to approve refills for the pended medication(s) per refill protocol. Please approve if appropriate. Thank you, London Torres, PharmD Clinical Pharmacist [facility] ([facility]) 09/30/24 10:17 AM [phone] documented in this encounter Plan of Treatment Upcoming Encounters Date Type Department Care Team (Latest Contact Info) Description 10/12/2024 7:00 AM EDT Laboratory Lab Mobile Phlebotomy [place] [address] [address] [address] [facility] Mobile Home Draw [facility] [place] [place] [address] 10/28/2024 12:00 PM EDT Office Visit Gastroenterology, [facility] [address] [place] [phone] Heriberto Cutler CRNP [address] [place] [address] 11/18/2024 Hospital Encounter OR GL, Operating Room, [facility] - 4th Floor [address] [place] [place] [phone] Yousuf Patino MD [address] [facility] [place] [address] 12/03/2024 11:00 AM EDT Office Visit Cardiology, [facility] [address] [place] [phone] Walter Holt MD [address] [place] [address] 12/14/2024 11:45 AM EDT Hospital Encounter ENDO OSS[facility], Endoscopy Room [facility] [address] [place] [phone] Anais Price MD [address] [place] [address] 12/14/2024 11:45 AM EDT - 12/14/2024 12:15 PM EDT Surgery ENDO OSSC, Endoscopy Room [facility] [address] [place] [phone] Anais Price MD [address] [place] [address] COLONOSCOPY FLEXIBLE PROXIMAL DIAGNOSTIC 12/25/2024 11:20 AM EDT Office Visit Nephrology, [facility] [address] [place] [address] Dre Felix MD [address] [place] [address] 12/25/2024 12:20 PM EDT Office Visit [facility] [address] [phone] Patti Posadas MD [address] [address] 03/04/2025 2:30 PM EDT Office Visit [facility] [address] [place] [phone] Salome Gordillo CRNP [address] [place] [address] Scheduled Procedures Name Priority Associated Diagnoses Date/Ti me CHANGE OF PERCUTANEOUS TUBE OR DRAINAGE CATHETER WITH XRAY AND CONTRAST MEDIUM Chronic kidney disease, stage 3a (HCC) COLONOSCOPY FLEXIBLE PROXIMAL DIAGNOSTIC Recall History of colon polyps 12/14/2024 11:45 AM EDT Health Maintenance Due Date Last Done Comments Alpha-1 Antitrypsin 12/20/1967 Fecal Occult Blood Test 1994 Sigmoidoscopy 1994 Adult Wellness Visit 03/26/2018 03/26/2017 Lung Cancer Screening 09/26/2022 09/26/2021 , 09/20/2020, 09/18/2017 (Declined) Colonoscopy 01/28/2023 01/28/2018, 01/15, 10/13/2013, Additional history [...] Additional history exists CKD PHOS USE SMARTSET [id number] 03/23/2025 10/0 12/2023, 08/12/2023, 03/12/2022, Additional history exists Diabetic Eye Exam 07/27/2025 07/27/2024, , 06/11/2023, Additional history exists B-12 07/31/2025 07/31/2024, 02/15, 08/28/2022, Additional history exists CKD HGB USE SMARTSET 48892 07/31/202507/31, 07/31/2024, 07/16/2024, Additional history exists Depression Monitoring 09/21/2025 09/21/2024, 025 O2 ASSESSMENT COMPLETED IN PAST YEAR FOR COPD 09/28/2025 09/28/2024 Cologuard 03/20/2027 03/20/2024, 05/13/2017 Lipid Panel 06/11/2028 06/11/2023, 02/16, 02/22/2021, Additional history exists DTap/Tdap Vaccines (4 - Td or Tdap) 08/31/2030 08/31/2020, 05/19/2010, 07/20/2003 Hepatitis C Screening Completed 11/15/2014 RETIRED - COLONOSCOPY-EVERY 5 YRS AGES 18-100 Discontinued 01/28/2018, 01/28/2018, 10/13/2013, Additional history exists Pneumococcal Vaccine: 50+ Years Completed 06/22/2023, 08/27/2016, 08/16/2014, Additional history exists Influenza Vaccine (FLU shot) Completed 03/09/2024, 03/09/2024, 02/23/2023, Additional history exists DXA Scan Discontinued HPV [...] as of this encounter Visit Diagnoses Diagnosis Allergic rhinitis due to other allergic trigger, unspecified seasonality Dyslipidemia Other and unspecified hyperlipidemia History of colon polyps Personal history of colonic polyps documented in this encounter Care Teams Shirt Operator Relationship Specialty Start Date End Date Patti Posadas MD [address] [facility] [place] [address] PCP - General Internal Medicine 08/17/24 documented as of this encounter
--- OUTSIDE RECORDS SUMMARY | 2024-10-01 17:22 | External Medical Summary | Summary of Care ---
Author Name Unknown Organization [facility] Address [address] [facility] [place] [address] Phone [phone] Care Team Providers Care Silk Blocker Name Role Phone Patti Posadas MD Primary Care Provider [phone] Reason for Visit * Reason Onset Date Comments Scheduling 09/30/2024 Encounter Details Date Type Department Care Team (Late st Contact Info) Description [facility] [address] [phone] Patti Posadas MD [address] [address] Scheduling Allergies Active Allergy Reactions Criticality Noted Date Comments Amoxicillin-Pot Clavulanate Other (Please comment) 01/14/2015 Severe Yeast infection Nitrofurantoin Liver complications (Please comment) 07/13/2024 See [facility] hospitalization dated 07/08/24 Morphine And Codeine Unknown 02/19/2003 Codeine makes her vomit Sulfa Antibiotics Edema face/lips/tongue,Oth er (Please comment) High 02/19/2003 Headache documented as of this encounter (statuses as of 09/30/2024) Medications PERPHENAZINE 2 MG PO TABS Take 3 Tablets by mouth at bedtime. 4 Active LORAzepam (ATIVAN) 0.5 MG Tablet Take 1 Tablet by mouth at bedtime as needed for Anxiety or Insomnia. 30 Tab 0 6 Active doxepin (SINEQUAN) 25 MG Capsule Take 1 Cap by mouth at bedtime. 90 Cap 3 7 Active hydrOXYzine HCl 25 MG Oral Tablet Take 1 Tablet by mouth 2 times a day as needed. 2 Active CPAP every night at bedtime. Active Citalopram Hydrobromide 10 MG Oral Tablet (CeleXA) Take 1 Tablet by mouth in the morning. 3 Active Citalopram Hydrobromide 20 MG Oral Tablet (CeleXA) Take 1 Tablet by mouth in the morning. 3 Active Vitamin C 1000 MG Oral Tablet TAKE ONE TABLET BY MOUTH EVERY DAY 28 Tablet 11 3 Active Depend Underwear X-Large Use 3-4 depends per day 130 Each 11 4 Active Albuterol Sulfate (2.5 MG/3ML) 0.083% Inhalation Nebulization Solution (Proventil)Indicat ions:COPD, mild (HCC),Centrilobula r emphysema (HCC),Hypoxemia INHALE 1 VIAL VIA NEBULIZER EVERY 4 HOURS NEEDED FOR WHEEZING OR SHORTNESS OF BREATHE (CHEST PRESSURE) 300 mL 5 4 Active Mirtazapine 30 MG Oral Tablet (Remeron) Take 1 Tablet by mouth at bedtime. 4 Active Albuterol Sulfate HFA 108 (90 Base) MCG/ACT Inhalation Aerosol Solution Inhale 2 Puffs by mouth every 6 hours as needed (SOB cough). 18 g 5 4 Active Spacer/Aero-Holdin g Chambers DeviceIndications: COPD, group B, by GOLD 2017 classification (HCC) Use with albuterol inhaler. 1 Each 4 Active Olopatadine HCl 0.2 % Ophthalmic Solution Instill 1 Drop into eye in the morning. 15 mL 3 4 Active Famotidine 20 MG Oral Tablet (Pepcid) Take 1 Tablet by mouth in the morning and 1 Tablet before bedtime. 180 Tablet 2 4 Active Turmeric Curcumin 500 MG Oral Capsule Take 1 Capsule by mouth in the morning. Every morning.. 90 Capsule 2 4 Active Triamcinolone Acetonide 0.5 % External Cream (Aristocort)Indica tions:Payroll Administrator's papule Apply 0.5 g topically to affected area in the morning and 0.5 g before bedtime. To affected area.. 60 g 1 4 Active tiZANidine HCl 4 MG Oral Tablet (Zanaflex) Take 1 Tablet by mouth every 8 hours as needed for Muscle spasms. 90 Tablet 3 4 Active Fish Oil 1000 MG Oral Capsule TAKE ONE CAPSULE BY MOUTH TWICE DAILY 56 Capsule 11 4 Active Diclofenac Sodium 1 % External Gel (Voltaren) Apply 1 g topically to affected area in the morning and 1 g before bedtime. 100 g 3 4 Active Vitamin B Complex Oral Capsule TAKE ONE CAPSULE BY MOUTH EVERY DAY 28 Capsule 11 4 Active Vitamin E 180 MG (400 UNIT) Oral Capsule TAKE ONE CAPSULE BY MOUTH TWICE DAILY 56 Capsule 11 4 Active Fluticasone-Salmet sadia 250-50 MCG/ACT Inhalation Aerosol Powder Breath Activated (Advair Diskus) Inhale 1 Puff by mouth in the morning and 1 Puff before bedtime. Rinse mouth after use.. 180 Each 3 4 Active Aspirin Low Dose 81 MG Oral Tablet Delayed Release (aspirin enteric coated) TAKE ONE TABLET BY MOUTH EVERY MORNING 90 Tablet 3 4 Active Nystatin 343149 UNIT/GM External Powder (Nystop)Indication s:Candidal skin infection APPLY TOPICALLY TO THE AFFECTED AREA THREE TIMES DAILY 30 g 3 4 Active Bladder Control Pads RegularIndications :Urinary incontinence Patient using 8-10 pads daily; 1 month supply = Qty 300 300 Each 12 5 Active Fluticasone Propionate 50 MCG/ACT Nasal Suspension (Flonase)Indicatio ns:Chronic rhinitis INSTILL 2 SPRAYS INTO EACH NOSTRIL DAILY 48 g 3 5 Active Cetirizine HCl 10 MG Oral Tablet (ZyrTEC) TAKE ONE TABLET BY MOUTH EVERY MORNING 90 Tablet 3 5 Active Prazosin HCl 5 MG Oral Capsule (Minipress) Take 2 Capsules by mouth in the morning and 2 Capsules before bedtime. 5 Active Sodium Chloride 1 GM Oral Tablet Take 0.5 Tablets by mouth in the morning and 0.5 Tablets at noon and 0.5 Tablets before bedtime. TAKE WITH PRAZOSIN. Active Fluconazole 100 MG Oral Tablet (Diflucan) Take 1 Tablet by mouth in the morning. Active Metoprolol Succinate ER 25 MG Oral Tablet Extended Release 24 Hour (Toprol XL) Take 1/2 tablet by mouth in the morning and 1/2 tablet before bedtime. 30 Tablet 11 09/15/2024 11:18 AM EDT Active Normal Saline Flush 0.9 % Intravenous Solution Use 1 syringe (10 ml) to flush left PCN tube every 2 to 3 days - more often if with decreased uninary output 600 mL 09/23/2024 11:27 AM EDT 5 Active Cefpodoxime Proxetil 200 MG Oral Tablet Take 1 Tablet by mouth in the morning. 5 10/08/19 25 Active Levothyroxine Sodium 150 MCG Oral Tablet (Levoxyl) Take 1 Tablet by mouth daily first thing in the morning. (at least 30 min prior to breakfast or other meds) Active oxyCODONE-Acetamin ophen 5-325 MG Oral Tablet (Percocet) Take 1 Tablet by mouth 2 times a day as needed for Pain, Severe. 60 Tablet 5 Active Atorvastatin Calcium 10 MG Oral Tablet (Lipitor)Indicatio ns:Dyslipidemia Take 1 Tablet by mouth at bedtime. In the morning. 90 Tablet 5 Active metFORMIN HCl 500 MG Oral Tablet (Glucophage) TAKE ONE TABLET BY MOUTH TWICE DAILY with morning and evening meals. 180 Tablet 5 Active Montelukast Sodium 10 MG Oral Tablet (Singulair)Indicat ions:Allergic rhinitis due to other allergic trigger, unspecified seasonality Take 1 Tablet by mouth in the morning. In the morning.. 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 Not on file Not on file Not on file disability Not on file Not on file Not on file documented as of this encounter Miscellaneous Notes * Telephone Encounter - Shima Gonzalez OSA - 09/30/2024 2:49 PM EDT Patient was called and spoke to the care trainer Alma to schedule the Left Nephrostomy Tube Exchange for 11/18 at [facility] Patient identified by: name Person taught: Patient and Caregiver METHOD: Lecture-telephone interview PATIENT INSTRUCTIONS GIVEN: - General Preoperative Instructions Reviewed - No food or fluid restrictions prior procedure - Excel Vba Developer recommended Location and check-in instructions Verbalizes understanding of education: Yes Procedure date at time of Imaging Encounter: 11/18 What procedure is patient having? Left Nephrostomy Tube Exchange Laterality confirmed as Left Does the patient have a yellow bar? did not The Patient and caregiver was given the opportunity to ask questions concerning the procedure. Signature: ADRI Royal 09/30/2024 documented in this encounter Plan of Treatment Upcoming Encounters Date Type Department Care Team (Latest Contact Info) Description 10/12/2024 7:00 AM EDT Laboratory Lab Mobile Phlebotomy [address] [place] [address] [facility] Mobile Home Draw [address] [place] [address] [place] [address] 10/28/2024 12:00 PM EDT Office Visit Gastroenterology, [facility] [address] [place] [phone] Heriberto Cutler CRNP [address] [place] [address] 11/18/2024 Hospital Encounter OR GLH, Operating Room, [facility] - 4th Floor [address] [place] [phone] Yousuf Patino MD [address] [facility] [place] [address] 12/03/2024 11:00 AM EDT Office Visit Cardiology, [facility] [address] [place] [phone] Walter Holt MD [address] [place] [address] 12/14/2024 11:45 AM EDT Hospital Encounter ENDO [facility], Endoscopy Room [facility] [address] [place] [phone] Anais Price MD [address] [place] [address] 12/14/2024 11:45 AM EDT - 12/14/2024 12:15 PM EDT Surgery ENDO [facility], Endoscopy Room [facility] [address] [place] [phone] Anais Price MD [address] [place] [address] COLONOSCOPY FLEXIBLE PROXIMAL DIAGNOSTIC 12/25/2024 11:20 AM EDT Office Visit Nephrology, [facility] [address] [place] [address] Dre Felix MD [address] [place] [address] 12/25/2024 12:20 PM EDT Office Visit [facility] [place] [address] [place] [phone] Patti Posadas MD [address] [place] [address] 03/04/2025 2:30 PM EDT Office Visit [facility] [place] [address] [place] [phone] Salome Gordillo CRNP [address] [place] [address] Scheduled Procedures Name Priority Associated Diagnoses Date/Ti [...] Additional history exists CKD PHOS USE SMARTSET 93984 03/23/2025 10/0 12/2023, 08/12/2023, 03/12/2022, Additional history exists Diabetic Eye Exam 07/27/2025 07/27/2024, , 06/11/2023, Additional history exists B-12 07/31/2025 07/31/2024, 02/15, 08/28/2022, Additional history exists CKD HGB USE SMARTSET 59022 07/31/202507/31, 07/31/2024, 07/16/2024, Additional history exists Depression [...] filedocumented as of this encounter Care Teams Silk Blocker Relationship Specialty Start Date End Date Patti Posadas MD [address] [facility] [place] [address] PCP - General Internal Medicine 08/17/24 documented as of this encounter
--- OUTSIDE RECORDS SUMMARY | 2024-10-01 17:23 | External Medical Summary | Summary of Care ---
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 Nickie Comments Is Patient homebound? Yes All sections of this form must be filled out completely. Forms with missing or illegible information will be returned for completion. This form should not be modified in any way. Forms that have been modified will be returned. This form may not be submitted by a home health agency. It must be complete and submitted by the ordering provider. One full business day lead time is required and service will be scheduled based on the next service day for the [facility] Home Phlebotomy does not service every geographical location on a daily basis. Contact [facility] Client Services at to find out service days for a specific location. [facility] [place] Patient Name: Elsy Palmer : 1950 Sex: female Address [address] [place] [address] Provider: @REF@? Patti Posadas MD? 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) (M51.362) Degeneration of intervertebral disc of lumbar region with discogenic back pain and lower extremity pain (T83.512A) Infection associated with nephrostomy catheter, initial encounter (HCC) (N39.0) Complicated UTI (urinary tract infection) (R09.89) Labile blood pressure (I12.9, N18.31) Benign hypertension with stage 3a chronic kidney disease (HCC) (I10) HTN, GOAL BELOW 140/90 (J45.30) Mild persistent asthma without complication (E11.22, N18.31) Type 2 diabetes mellitus with stage 3a chronic kidney disease, without long-term current use of insulin (HCC) (I95.1) Orthostatic hypotension (N18.31) Chronic kidney disease, stage 3a (HCC) (Z09) Hospital discharge follow-up Tests Requested Cbc with diff, CMP in 2 weeks , once Reason for Visit * Reason Onset Date Comments Hospital Follow-Up Pt here today due to needing a hospital discharge follow up appointment Emergency Department Follow-Up P t was in the ER yesterday due to bleeding due to UTI Hospital Follow-Up 09/28/2024 Encounter Details Date Type Department Care Team (Late st Contact Info) Description 09/28/2024 11:40 AM EDT Office Visit [facility] [address] [phone] Patti Posadas MD [address] [phone] Malignant neoplasm of urinary bladder, unspecified site (HCC)*; 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); Degeneration of intervertebral disc of lumbar region with discogenic back pain and lower extremity pain; Infection associated with nephrostomy catheter, initial encounter ([facility]); Complicated UTI (urinary tract infection); Labile blood pressure; Benign hypertension with stage 3a chronic kidney disease ([facility]); HTN, GOAL BELOW 140/90; Mild persistent asthma without complication; Type 2 diabetes mellitus with stage 3a chronic kidney disease, without long-term current use of insulin ([facility]); Orthostatic hypotension; Chronic kidney disease, stage 3a ([facility]); Hospital discharge follow-up; Dyslipidemia; Allergic rhinitis due to other allergic trigger, unspecified seasonality Allergies Active Allergy Reactions Criticality Noted Date Comments Amoxicillin-Pot Clavulanate Other (Please comment) 01/14/2015 Severe Yeast infection Nitrofurantoin Liver complications (Please comment) 07/13/2024 See [facility] hospitalization dated 07/08/24 Morphine And Codeine Unknown 02/19/2003 Codeine makes her vomit Sulfa Antibiotics Edema face/lips/tongue,Oth er (Please comment) High 02/19/2003 Headache documented as of this encounter (statuses as of 09/28/2024) Medications PERPHENAZINE 2 MG PO TABS Take [...] COPD, group B, by GOLD 2017 classification ([facility]) Use with albuterol inhaler. 1 Each 11/19/19 24 Active Olopatadine HCl 0.2 % Ophthalmic Solution Instill 1 Drop into eye in the morning. 15 mL 3 12/13/19 24 Active Garlic 1000 MG Oral Capsule Take 1 Capsule by mouth in the morning. 90 Capsule 2 12/16/19 24 Active Famotidine 20 MG Oral Tablet (Pepcid) Take 1 Tablet by mouth in the morning and 1 Tablet before bedtime. 180 Tablet 2 12/16/19 24 Active Turmeric Curcumin 500 MG Oral Capsule Take 1 Capsule by mouth in the morning. Every morning.. 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 Rinse mouth after use.. 180 Each 3 03/27/20 24 Active Aspirin Low Dose 81 MG Oral Tablet Delayed Release (aspirin enteric coated) TAKE ONE TABLET BY MOUTH EVERY MORNING 90 Tablet 3 04/24/20 24 Active Nystatin 540480 UNIT/GM External Powder (Nystop)Indication s:Candidal skin infection APPLY TOPICALLY TO THE AFFECTED AREA THREE TIMES DAILY 30 g 05/07/20 24 Active Bladder Control Pads RegularIndications :Urinary incontinence Patient using 8-10 pads daily; 1 month supply = Qty 300 300 Each 12 06/26/19 25 Active Fluticasone Propionate 50 MCG/ACT Nasal Suspension (Flonase)Indicatio ns:Chronic rhinitis INSTILL 2 SPRAYS INTO EACH NOSTRIL DAILY 48 g 09/03/19 25 Active Cetirizine HCl 10 MG [...] and 1/2 tablet before bedtime. 30 Tablet 5 11:18 AM EDT 09/16/19 25 Active Normal Saline Flush 0.9 % Intravenous Solution Use 1 syringe (10 ml) to flush left PCN tube every 2 to 3 days - more often if with decreased uninary output 600 mL 5 11:27 AM EDT 09/23/19 25 Active Cefpodoxime Proxetil 200 MG Oral Tablet Take 1 Tablet by mouth in the morning. 09/28/19 25 025 Active Levothyroxine Sodium 150 MCG Oral [...] at bedtime. In the morning. 90 Tablet 3 09/29/19 25 Active metFORMIN HCl 500 MG Oral Tablet (Glucophage) TAKE ONE TABLET BY MOUTH TWICE DAILY with morning and evening meals. 180 Tablet 3 09/29/19 25 Active Montelukast Sodium 10 MG Oral Tablet (Singulair)Indicat ions:Allergic rhinitis due to other allergic trigger, unspecified seasonality Take 1 Tablet by mouth in the morning. In the morning.. 90 Tablet 3 09/29/19 25 Active Carvedilol 6.25 MG Oral Tablet (Coreg) Take 1 Tablet by mouth in the morning and 1 Tablet before bedtime. With meals.. 180 Tablet 3 11/14/19 24 025 Discontin ued(Patie nt preferenc e/discont inuation) Levothyroxine Sodium 125 MCG Oral Tablet (Levoxyl)Indicatio ns:Acquired hypothyroidism TAKE ONE TABLET BY MOUTH EVERY DAY AT LEAST 30 MINUTES PRIOR TO BREAKFAST OR OTHER MEDICATIONS 90 Tablet 2 12/16/19 24 025 Discontin ued(Patie nt preferenc e/discont inuation) Montelukast Sodium 10 MG Oral Tablet (Singulair)Indicat ions:Allergic rhinitis due to other allergic trigger, unspecified seasonality Take 1 Tablet by mouth in the morning. In the morning.. 90 Tablet 2 12/16/19 24 025 Discontin ued(Refil l) Atorvastatin Calcium 10 MG Oral Tablet (Lipitor)Indicatio ns:Dyslipidemia Take 1 Tablet by mouth in the morning. In the morning.. 90 Tablet 2 12/16/19 24 025 Discontin ued(Refil l) metFORMIN HCl 500 MG Oral Tablet (Glucophage) TAKE ONE TABLET BY MOUTH TWICE DAILY with morning and evening meals. 180 Tablet 2 12/16/19 24 025 Discontin ued(Refil l) hydrALAZINE HCl 10 MG Oral Tablet (Apresoline) Take 1 Tablet by mouth 3 times a day as needed (hypertension if SBP is more than 170/). 90 Tablet 5 03/20/20 24 025 Discontin ued(Patie nt preferenc e/discont inuation) NIFEdipine ER 30 MG Oral Tablet Extended Release 24 Hour (Adalat CC) TAKE ONE TABLET BY MOUTH EVERY MORNING 90 Tablet 3 05/25/20 24 025 Discontin ued(Patie nt preferenc e/discont inuation) Midodrine HCl 2.5 MG Oral Tablet (Proamatine) TAKE ONE TABLET BY MOUTH TWICE DAILY NEEDED FOR orthostatic hypotension (less THAN 80/50) 60 Tablet 5 08/07/19 25 025 Discontin ued(Patie nt preferenc e/discont inuation) oxyCODONE-Acetamin ophen 5-325 MG Oral Tablet (Percocet) Take 1 Tablet by mouth every 6 hours as needed. 09/12/19 25 025 Discontin ued(Refil l) documented as of this encounter (statuses as of 09/28/2024) Active Problems Problem Noted Date Diagnosed Date [...] disease 03/25/2018 Old NM (myocardial infarction) 03/25/2018 Mild persistent asthma without [...] as of this encounter (statuses as of 09/28/2024) Resolved Problems Problem Noted Date Diagnosed Date [...] and 6 MWT Genetic Sleep [facility] Other*[id number] 08/27/2011 01/18/2016 Routine general medical exam ination [...] as of this encounter (statuses as of 09/28/2024) Immunizations Name Administration Dates Next Due COVID-19 [...] Never Smokeless Tobacco: Never Tobacco Cessation:Counseling Given: No Alcohol Use Standard Drinks/Week Comments No 0 [...] 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 Not on file Not on file disability Not on file Not on file Not on file documented as of this encounter Last Filed Vital Signs Vital Sign Reading Time Taken Comments Blood Pressure 137/73 09/28/2024 11:35 AM EDT Pulse 90 09/28/2024 11:35 AM EDT Temperature 36.7 °C (98.1 °F) 09/28/2024 11:35 AM E DT Respiratory Rate 16 09/28/2024 11:35 AM EDT Oxygen Saturation 94% 09/28/2024 11:35 AM EDT Inhaled Oxygen Concentration - - Weight 95.3 kg (210 lb) 09/28/2024 11:35 AM EDT Height - - Body Mass Index 41.01 03/20/2024 3:58 PM EDT documented in this encounter Progress Notes * Patti Posadas MD - 09/28/2024 11:51 AM EDT Subjective Elsy Palmer is a 73 year old female. Chief Complaint Patient presents with Hospital Follow-Up Pt here today due to needing a hospital discharge follow up appointment Emergency Department Follow-Up Pt was in the ER yesterday due to bleeding due to UTI Hospital Follow-Up HPI: Here for hospital f/u and ER visit f/u Admission : sep 09 Discharge : sep 12 ER visit : sep 27 Dx: invasive bladder cancer, L2 metastasis Dx : complicated UTI , nephrostomy infection Text in this note was generated using an ambient documentation service. I discussed the use of a device to record and summarize our discussion today. All persons present during the encounter consented to its use History of Present Illness Elsy, a patient with a complex medical history including bladder cancer with metastasis to the lumbar spine, presents for a follow-up visit. She reports a recent episode of hematuria, which prompteda visit to the emergency room. She describes the blood in her urine as bright red and was unsure ifit contained tissue or clots. This episode was alarming for her and led to a consultation with a urologist who advised her to seek immediate medical attention. At the ER, she was diagnosed with a bladder infection and started on a broad-spectrum antibiotic, which she is to continue for ten days. Elsy also reports severe back pain, which she rates as a seven on a scale of one to ten. She states that jaay-wux-kdtgwyw pain relievers like Tylenol are not effective in managing her pain. She has been prescribed Percocet for pain management, which she takes only when the pain is unbearable. She also mentions having a nephrostomy tube, which is due for an exchange. She has been experiencing some difficulties with urination since the removal of her catheter, stating that she has to push to urinate. Elsy's caregiver mentions that Elsy has been diagnosed with invasive bladder cancer, which has metastasized to her lumbar spine. This diagnosis has understandably increased Elsy's stress levels, and she reports that her depression has worsened. PMH: Patient Active Problem List Diagnosis Insomnia DDD (degenerative disc disease), lumbar HTN, GOAL BELOW 140/90 Dyslipidemia, goal LDL below 100 Centrilobular emphysema ([facility]) Acquired hypothyroidism Mild persistent asthma without complication Type 2 diabetes mellitus with hemoglobin A1c goal of less than 7.0% ([facility]) GERARDO (generalized anxiety disorder) Gastroesophageal reflux disease Old NM (myocardial infarction) Periodic limb movement disorder (PLMD) Need for prophylactic vaccination and inoculation against influenza Nocturnal hypoxemia History of tobacco abuse Benign hypertension with stage 3a chronic kidney disease ([facility]) Chronic kidney disease, stage 3a ([facility]) COPD, group B, by GOLD 2017 classification ([facility]) DDD (degenerative disc disease), thoracic Orthostatic hypotension Moderate episode of recurrent major depressive disorder ([facility]) Labile blood pressure Type 2 diabetes mellitus with stage 3a chronic kidney disease, without long-term current use of insulin ([facility]) Current Outpatient Medications Medication Sig Dispense Refill PERPHENAZINE 2 MG PO TABS Take 3 Tablets by mouth at bedtime. LORAzepam (ATIVAN) 0.5 MG Tablet Take 1 Tablet by mouth at bedtime as needed for Anxiety or Insomnia. 30 Tab 0 doxepin (SINEQUAN) 25 MG Capsule Take 1 Cap by mouth at bedtime. 90 Cap 3 hydrOXYzine HCl 25 MG Oral Tablet Take 1 Tablet by mouth 2 times a day as needed. Citalopram Hydrobromide 10 MG Oral Tablet (CeleXA) Take 1 Tablet by mouth in the morning. Citalopram Hydrobromide 20 MG Oral Tablet (CeleXA) Take 1 Tablet by mouth in the morning. Vitamin C 1000 MG Oral Tablet TAKE ONE TABLET BY MOUTH EVERY DAY 28 Tablet 11 Depend Underwear X-Large Use 3-4 depends per day 130 Each 11 Albuterol Sulfate (2.5 MG/3ML) 0.083% Inhalation Nebulization Solution (Proventil) INHALE 1 VIAL VIA NEBULIZER EVERY 4 HOURS NEEDED FOR WHEEZING OR SHORTNESS OF BREATHE (CHEST PRESSURE) 300 mL 5 Mirtazapine 30 MG Oral Tablet (Remeron) Take 1 Tablet by mouth at bedtime. Albuterol Sulfate HFA 108 (90 Base) MCG/ACT [...] mouth in the morning. 90 Capsule 2 Famotidine 20 MG Oral Tablet (Pepcid) [...] needed for Muscle spasms. 90 Tablet 3 Fish Oil 1000 MG Oral Capsule TAKE ONE CAPSULE BY MOUTH TWICE DAILY 56 Capsule 11 Diclofenac Sodium 1 % External Gel (Voltaren) Apply 1 g topically to affected area in the morning and 1 g before bedtime. 100 g 3 Vitamin B Complex Oral Capsule TAKE ONE CAPSULE BY MOUTH EVERY DAY 28 Capsule 11 Vitamin E 180 MG (400 UNIT) Oral Capsule TAKE ONE CAPSULE BY MOUTH TWICE DAILY 56 Capsule 11 Fluticasone-Salmeterol 250-50 MCG/ACT Inhalation Aerosol Powder Breath Activated (Advair Diskus) Inhale 1 Puff by mouth in the morning and 1 Puff before bedtime. Rinse mouth after use.. 180 Each 3 Aspirin Low Dose 81 MG Oral Tablet Delayed Release (aspirin enteric coated) TAKE ONE TABLET BY MOUTH EVERY MORNING 90 Tablet 3 Nystatin 394255 UNIT/GM External Powder (Nystop) APPLY TOPICALLY TO THE AFFECTED AREA THREE TIMES DAILY 30 g 3 Bladder Control Pads Regular Patient using 8-10 pads daily; 1 month supply = Qty 300 300 Each 12 Fluticasone Propionate 50 MCG/ACT Nasal Suspension (Flonase) INSTILL 2 SPRAYS INTO EACH NOSTRIL DAILY 48 g 3 Cetirizine HCl 10 MG Oral Tablet (ZyrTEC) TAKE ONE TABLET BY MOUTH EVERY MORNING 90 Tablet 3 Prazosin HCl 5 MG Oral Capsule (Minipress) Take 2 Capsules by mouth in the morning and 2 Capsules before bedtime. Sodium Chloride 1 GM Oral Tablet Take 0.5 Tablets by mouth in the morning and 0.5 Tablets at noon and 0.5 Tablets before bedtime. TAKE WITH PRAZOSIN. Fluconazole 100 MG Oral Tablet (Diflucan) Take 1 Tablet by mouth in the morning. Metoprolol Succinate ER 25 MG Oral Tablet Extended Release 24 Hour (Toprol XL) Take 1/2 tablet by mouth in the morning and 1/2 tablet before bedtime. 30 Tablet 11 Normal Saline Flush 0.9 % Intravenous Solution Use 1 syringe (10 ml) to flush left PCN tube every 2to 3 days - more often if with decreased uninary output 600 mL 3 Cefpodoxime Proxetil 200 MG Oral Tablet Take 1 Tablet by mouth in the morning. Levothyroxine Sodium 150 MCG Oral Tablet (Levoxyl) Take 1 Tablet by mouth daily first thing in the morning. (at least 30 min prior to breakfast or other meds) oxyCODONE-Acetaminophen 5-325 MG Oral Tablet (Percocet) Take 1 Tablet by mouth 2 times a day as needed for Pain, Severe. 60 Tablet 0 Atorvastatin Calcium 10 MG Oral Tablet (Lipitor) Take 1 Tablet by mouth at bedtime. In the morning.90 Tablet 3 metFORMIN HCl 500 MG Oral Tablet (Glucophage) TAKE ONE TABLET BY MOUTH TWICE DAILY with morning andevening meals. 180 Tablet 3 Montelukast Sodium 10 MG Oral Tablet (Singulair) Take 1 Tablet by mouth in the morning. In the morning.. 90 Tablet 3 CPAP every night at bedtime. (Patient not taking: Reported on 09/28/2024) No current facility-administered medications for this visit. [...] performed by Ines Bailey DO at [facility] COLONOSCOPY, DIAGNOSTIC (RECTUM) 01/28/2018 diverticulosis, repeat 5 yrs/COLONOSCOPY FLEXIBLE PROXIMAL DIAGNOSTIC performed by Ines Bailey DO at [facility] DOBUTAMINE STRESS ECHO 05/20 equivocal stress findings; negative stress echo findings LEFT HEART CATHETERIZATION 1996 [facility], dr roca REMOVAL OF APPENDIX 15 y/o REMOVE CATARACT, INSERT LENS PROSTH 1995 Rt/Lt REPAIR INITIAL INGUINAL HERNIA REDUCIBLE AGE 5 OR MORE Left 08/05/2017 08/05/2017 repair of left inguinal hernia - [facility] Dr. 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: [employer] 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 Occupation: disability Comment: DJD, mood disorder Tobacco Use Smoking status: Former Current packs/day: 0.00 Average packs/day: 2.0 packs/day for 30.0 years (60.0 ttl pk-yrs) Types: Cigarettes Start date: 07/29/1981 Quit date: 07/29/2011 Years since quittin.1 Passive exposure: Never Smokeless tobacco: Never Vaping Use Vaping status: Never Used Substance and Sexual Activity Alcohol use: No Drug use: No Sexual activity: Not Currently Other Topics Concern Not on file Social History Narrative Not on file Social Needs Financial Resource Strain: Low Risk (09/21/2024) Financial Resource Strain Do you have any trouble paying for your medications, or do you think you might in the future? (Adult - for ages 18 years and over): No Does your family have trouble paying for medicine? (Household - for ages 0-17 years): Not on file Food Insecurity: No Food Insecurity (09/21/2024) Food Insecurity Worried About Running Out of Food in the Last Year: Never true Ran Out of Food in the Last Year: Never true Do you need food for this week? (Adult - for ages 18 years and over): No Transportation Needs: No Transportation Needs (09/21/2024) Transportation Needs Do you have trouble getting a ride to medical visits or work? (Adult - for ages 18 years and over):Not on file Does your family have a hard time getting a ride to doctors’ visits? (Household - for ages 0-17 years): Not on file Has lack of transportation kept you from medical appointments, meetings, work, or from getting things needed for daily living? Check all that apply. (Adult - for ages 18 years and over): No Do you (or your family) have trouble finding or paying for a ride (transportation)? (Household - for ages 0-17 years): Not on file Social Connections: Socially Integrated (09/21/2024) Social Connections How often do you feel lonely or isolated from those around you? (Adult - for ages 18 years and over): Never Housing Stability: Low Risk (09/21/2024) Housing Stability Do you currently live in a half-way or have no steady place to sleep at night? (Adult - for ages 18 years and over): No Do you think you are at risk of becoming homeless? (Adult - for ages 18 years and over): Not on file Does your family worry about paying for your home or becoming homeless? (Household - for ages 0-17 years): Not on file Are you homeless or worried that you might be in the future? (Adult - for ages 18 years and over): No Are you (or your family) homeless or worried that you might be in the future? (Household - for ages0-17 years): Not on file Review of Systems Constitutional: Positive for activity change (mid to lower back pain) and fatigue. Negative for appetite change, chills, diaphoresis, fever and unexpected weight change. HENT: Positive for congestion. Negative for postnasal drip and rhinorrhea. Respiratory: Negative for cough, chest tightness, shortness of breath and wheezing. Cardiovascular: Negative for chest pain, palpitations and leg swelling. Gastrointestinal: Negative for abdominal distention, abdominal pain, nausea and vomiting. Endocrine: Negative. Genitourinary: Positive for difficulty urinating and hematuria. Negative for urgency. Musculoskeletal: Positive for arthralgias, back pain and gait problem. Allergic/Immunologic: Positive for environmental allergies. Neurological: Positive for numbness. Negative for dizziness, weakness and light-headedness. Psychiatric/Behavioral: Positive for dysphoric mood and sleep disturbance. Negative for agitation and behavioral problems. The patient is nervous/anxious. Objective BP 137/73 | Pulse 90 | Temp 98.1 °F (36.7 °C) (Tympanic) | Resp 16 | Wt 210 lb (95.3 kg) | SpO2 94% | BMI 41.01 kg/m² | BSA 2.01 m² Physical Exam Constitutional: General: She is not in acute distress. Appearance: Normal appearance. She is not ill-appearing, toxic-appearing or diaphoretic. HENT: Head: Normocephalic and atraumatic. Nose: Nose normal. Eyes: Extraocular Movements: Extraocular movements intact. Cardiovascular: Rate and Rhythm: Normal rate and regular rhythm. Pulses: Normal pulses. Heart sounds: Murmur heard. Pulmonary: Effort: Pulmonary effort is normal. No respiratory distress. Breath sounds: No stridor. No wheezing, rhonchi or rales. Chest: Chest wall: No tenderness. Musculoskeletal: General: Tenderness (mid to lower back pain) present. Right lower leg: No edema. Left lower leg: No edema. Neurological: General: No focal deficit present. Mental Status: She is alert and oriented to person, place, and time. Psychiatric: Behavior: Behavior normal. 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 with discogenic back pain and lower extremity pain Infection associated with nephrostomy catheter, initial encounter ([facility]) Complicated UTI (urinary tract infection) - CULTURE, URINE, QUANTITATIVE; Future; Expected date: 10/12/2024 Labile blood pressure Benign hypertension with stage 3a chronic kidney disease (HCC) - CBC WITH WBC DIFFERENTIAL AND ANEMIA REFLEX WORKUP; Future; Expected date: 09/28/2024 - COMPREHENSIVE METABOLIC PANEL; Future; Expected date: 09/28/2024 - HOME PHLEBOTOMY REFERRAL OP HTN, GOAL BELOW 140/90 Mild persistent asthma without complication Type 2 diabetes mellitus with stage 3a chronic kidney disease, without long-term current use of insulin ([facility]) Orthostatic hypotension Chronic kidney disease, stage 3a (HCC) - CBC WITH WBC DIFFERENTIAL AND ANEMIA REFLEX WORKUP; Future; Expected date: 09/28/2024 - COMPREHENSIVE METABOLIC PANEL; Future; Expected date: 09/28/2024 - HOME PHLEBOTOMY REFERRAL OP Hospital discharge follow-up - DISCH MED RECON CUR MED LIS Dyslipidemia - Atorvastatin Calcium 10 MG Oral Tablet (Lipitor); Take 1 Tablet by mouth at bedtime. In the morning. Allergic rhinitis due to other allergic trigger, unspecified seasonality - Montelukast Sodium 10 MG Oral Tablet (Singulair); Take 1 Tablet by mouth in the morning. In the morning.. Other orders - oxyCODONE-Acetaminophen 5-325 MG Oral Tablet (Percocet); Take 1 Tablet by mouth 2 times a day as needed for Pain, Severe. - metFORMIN HCl 500 MG Oral Tablet (Glucophage); TAKE ONE TABLET BY MOUTH TWICE DAILY with morning and evening meals. Follow Up: Return in about 2 months (around 11/28/2024) for Clinic Visit. 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 Severe pain managed with opioids. Consultations with oncology scheduled for treatment discussion. - Prescribe Percocet, max twice daily. - Appointment with radiation oncology on September 30. - Appointment with medical oncology on October 07. - Discuss radiation therapy for spinal metastasis. Complicated urinary tract infection (UTI) Complicated UTI with hematuria post-surgery and nephrostomy tube. On antibiotics, increased UTI risk due to nephrostomy and cancer. - Complete 10-day antibiotic course. - Order urine culture post-antibiotics. Nephrostomy tube management Nephrostomy tube requires maintenance and exchange, increasing UTI risk. Scheduled for exchange, managed by interventional radiology. Nurse visits for flushing. - Arrange tube exchange at [facility]. - Coordinate with interventional radiology. - Ensure nurse visits thrice weekly for flushing. - Request extra-long tube for easier management. Chronic kidney disease Chronic kidney disease requires monitoring due to cancer treatment impact. - Order mobile lab for kidney function tests in two weeks. Hypertension Elevated blood pressure during pain episodes. Opioids may help manage pain- related spikes. Requiresmonitoring. - Monitor blood pressure regularly. - Use opioids to manage pain and control blood pressure. Type 2 diabetes mellitus Diabetes well-controlled with A1c of 6.2. Managed with metformin and stable diet. - Continue metformin. - Encourage water intake and healthy diet. Depression Worsening depression due to medical conditions and stress. Managed with medication, requires monitoring. - Continue antidepressant regimen. - Monitor mental health regularly. Patti Posadas MD documented in this encounter Nursing Notes * Jennifer Bower LPN - 09/28/2024 11:19 AM EDT Chief Complaint Patient presents with Hospital Follow-Up Pt here today due to needing a hospital discharge follow up appointment documented in this encounter Plan of Treatment Upcoming Encounters Date Type Department Care Team (Latest Contact Info) Description 10/28/2024 12:00 PM EDT Office Visit Gastroenterology, [facility] [address] [place] [phone] Heriberto Cutler CRNP [address] [place] [address] 12/03/2024 11:00 AM EDT Office Visit Cardiology, [facility] [address] [place] [phone] Walter Roca MD [address] [place] [address] 12/14/2024 11:45 AM EDT Hospital Encounter ENDO OSSC, Endoscopy Room [facility] [address] [place] [phone] Anais Price MD [address] [place] [address] 12/14/2024 11:45 AM EDT - 12/14/2024 12:15 PM EDT Surgery ENDO [facility], Endoscopy Room [facility] [address] [place] [phone] Anais Price MD [address] [place] [address] COLONOSCOPY FLEXIBLE PROXIMAL DIAGNOSTIC 12/25/2024 11:20 AM EDT Office Visit NephrologyMichael [address] [place] [address] Dre Felix MD [address] [place] [address] 12/25/2024 12:20 PM EDT Office Visit [facility] [place] [address] [phone] Patti Posadas MD [address] [address] 03/04/2025 2:30 PM EDT Office Visit [facility] Disorders Ctr [facility] [address] [place] [phone] Saolme Gordillo CRNP [address] [place] [address] Scheduled Orders Name Type Priority Associated Diagnoses Orde r Schedule CBC WITH WBC DIFFERENTIAL AND ANEMIA REFLEX WORKUP Lab Routine Malignant neoplasm of urinary bladder, unspecified site (HCC) Benign hypertension with stage 3a chronic kidney disease (HCC) Chronic kidney disease, stage 3a (HCC) Expected: 09/28/2024 (Approximate), Expires: 09/28/2025 COMPREHENSIVE METABOLIC PANEL Lab Routine Malignant neoplasm of urinary bladder, unspecified site (HCC) Benign hypertension with stage 3a chronic kidney disease (HCC) Chronic kidney disease, stage 3a (HCC) Expected: 09/28/2024 (Approximate), Expires: 09/28/2025 CULTURE, URINE, QUANTITATIVE Lab Routine Complicated UTI (urinary tract infection) Expected: 10/12/2024 (Approximate), Expires: 09/28/2025 Scheduled Procedures Name Priority Associated Diagnoses Date/Ti me COLONOSCOPY FLEXIBLE PROXIMAL DIAGNOSTIC Recall History of colon polyps 12/14/2024 11:45 AM EDT Scheduled Referrals Name Type Priority Associated Diagnoses Orde r Schedule HOME PHLEBOTOMY REFERRAL OP Referral Within 10 days (routine) Malignant neoplasm of urinary bladder, unspecified site (HCC) Benign hypertension with stage 3a chronic kidney disease (HCC) Chronic kidney disease, stage 3a (HCC) Ordered: 09/28/2024 Health Maintenance Due Date Last Done Comments [...] Additional history exists CKD PHOS USE SMARTSET 93390 03/23/2025 10/0 12/2023, 08/12/2023, 03/12/2022, Additional history exists Diabetic Eye Exam 07/27/2025 07/27/2024, , 06/11/2023, Additional history exists B-12 07/31/2025 07/31/2024, 02/15, 08/28/2022, Additional history exists CKD HGB USE SMARTSET 08585 07/31/202507/31, 07/31/2024, 07/16/2024, Additional history exists Depression [...] as of this encounter Visit Diagnoses Diagnosis Malignant neoplasm of urinary bladder, unspecified site (HCC)- Primary 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) Degeneration of intervertebral disc of lumbar region with discogenic back pain and lower extremity pain Infection associated with nephrostomy catheter, initial encounter (HCC) Complicated UTI (urinary tract infection) Urinary tract infection, site not specified Labile blood pressure Elevated blood pressure reading without diagnosis of hypertension Benign hypertension with stage 3a chronic kidney disease (HCC) HTN, GOAL BELOW 140/90 Unspecified essential hypertension Mild persistent asthma without complication Unspecified asthma Type 2 diabetes mellitus with stage 3a chronic kidney disease, without long-term current use of insulin (HCC) Orthostatic hypotension Chronic kidney disease, stage 3a (HCC) Hospital discharge follow-up Other follow-up examination Dyslipidemia Other and unspecified hyperlipidemia Allergic rhinitis due to other allergic trigger, unspecified seasonality History of colon polyps Personal history of colonic polyps documented in this encounter Care Teams Cco & President Relationship Specialty Start Date End Date Patti Posadas MD [address] [place], [place] [address] [address] PCP - General Internal Medicine 08/17/24 documented as of this encounter"
--- OUTSIDE RECORDS SUMMARY | 2024-10-01 17:23 | External Medical Summary | Summary of Care ---
Author Name Unknown Organization [facility] Address [address] [facility] [place] [address] Phone [phone] Care Team Providers Care Linux Security Administrator Name Role Phone Patti Posadas MD Primary Care Provider [phone] Reason for Visit * Reason Onset Date Comments Advice 06/29/2024 Encounter Details Date Type Department Care Team (Late st Contact Info) Description [facility] [address] [phone] Patti Posadas MD [address] [address] Advice Allergies Active Allergy Reactions Criticality Noted Date Comments Amoxicillin-Pot Clavulanate Other (Please comment) 01/14/2015 Severe Yeast infection Nitrofurantoin Liver complications (Please comment) 07/13/[address] [facility] hospitalization dated 07/08/24 Morphine And Codeine Unknown 02/19/2003 Codeine makes her vomit Sulfa Antibiotics Edema face/lips/tongue,Oth er (Please comment) High 02/19/2003 Headache documented as of this encounter (statuses as of 09/29/2024) Medications PERPHENAZINE 2 MG PO TABS Take [...] the morning. 15 mL 3 4 Active Garlic 1000 MG Oral Capsule Take 1 Capsule by mouth in the morning. 90 Capsule 2 4 Active Famotidine 20 MG Oral Tablet (Pepcid) Take 1 Tablet by mouth in the morning and 1 Tablet before bedtime. 180 Tablet 2 4 Active Turmeric Curcumin 500 MG Oral Capsule Take 1 Capsule by mouth in the morning. Every morning.. 90 Capsule 2 4 Active Triamcinolone Acetonide 0.5 % External Cream (Aristocort)Indica tions:Juvenile Correctional Officer's papule Apply 0.5 g topically to affected [...] MORNING 90 Tablet 3 4 Active Nystatin 453692 UNIT/GM External Powder (Nystop)Indication s:Candidal skin infection APPLY TOPICALLY TO THE AFFECTED AREA THREE TIMES DAILY 30 g 3 4 Active Bladder Control Pads RegularIndications :Urinary incontinence Patient using 8-10 pads daily; 1 month supply = Qty 300 300 Each 12 5 Active documented as of this encounter (statuses as of 09/29/2024) Active Problems Problem Noted Date Diagnosed Date [...] disorder) 03/25/2018 Gastroesophageal reflux disease 03/25/2018 Old MD (myocardial infarction) 03/25/2018 Mild persistent asthma without [...] as of this encounter (statuses as of 09/29/2024) Resolved Problems Problem Noted Date Diagnosed Date [...] 6 MWT Genetic Sleep Disorder Resea [facility] Other*[id number] 08/27/2011 01/18/2016 Routine general medical exam ination [...] as of this encounter (statuses as of 09/29/2024) Immunizations Name Administration Dates Next Due COVID-19 [...] Vac., MDV , IM, 0.5 mL (Fluzone) 02/16/2015,02/16/2014,09/12/2012,1112/2010,05/19/2010,07/01/2009,04/29/20 07 Seasonal Influenza, High Dos e, Trivalent, [...] 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 * Telephone Encounter - Niyah Nguyen LPN - 06/29/2024 12:45 PM EST Images from the original note were not included. Patient does [facility] BP monitoring for Dr Posadas Here is a recent summary of her readings per the [facility] dashboard that case mgmt manages and provides updates to PCP If you could fax to the below fax number please that would be appreciated * Telephone Encounter - Rosa Ponce LPN - 06/29/2024 9:16 AM EST Neha from [employer] calling. Pt is enrolled remote monitoring program with [employer] for her bps. Pt checks her BP multiple times a day. Is there a list of these BPs? Neha is trying to gather a list of Bps for Urology appt [facility] Vicente. Ernie Serna fax [phone] documented in this encounter Plan of Treatment Upcoming Encounters Date Type Department Care Team (Latest Contact Info) Description 10/28/2024 12:00 PM EDT Office Visit Gastroenterology, [facility] [address] [place] [phone] Heriberto Cutler CRNP [address] [place] [address] 12/03/2024 11:00 AM EDT Office Visit Cardiology, [facility] [address] [place] [phone] Walter Holt MD [address] [place] [address] 12/14/2024 11:45 AM EDT Hospital Encounter ENDO OSSC, Endoscopy Room [facility] [address] [place] [phone] Anais Price MD [address] [address] 12/14/2024 11:45 AM EDT - 12/14/2024 12:15 PM EDT Surgery ENDO [facility], Endoscopy Room [facility] [address] [place] [phone] Anais Price MD [address] [place] [address] COLONOSCOPY FLEXIBLE PROXIMAL DIAGNOSTIC 12/25/2024 11:20 AM EDT Office Visit NephrologyMichael [address] [place] [address] Dre Felix MD [address] [place] [address] 12/25/2024 12:20 PM EDT Office Visit [facility] [address] [facility] [place] [phone] Patti Posadas MD [address] [place] [address] 03/04/2025 2:30 PM EDT Office Visit Sleep Disorders Ctr [facility] [address] [place] [phone] Salome Gordillo CRNP [address] [place] [address] Scheduled Procedures Name Priority Associated Diagnoses Date/Ti [...] Additional history exists CKD PHOS USE SMARTSET 14977 03/23/2025 10/0 12/2023, 08/12/2023, 03/12/2022, Additional history exists Diabetic Eye Exam 07/27/2025 07/27/2024, , 06/11/2023, Additional history exists B-12 07/31/2025 07/31/2024, 02/15, 08/28/2022, Additional history exists CKD HGB USE SMARTSET 51961 07/31/202507/31, 07/31/2024, 07/16/2024, Additional history exists Depression [...] filedocumented as of this encounter Care Teams Linux Security Administrator Relationship Specialty Start Date End Date Patti Posadas MD [address] [address] PCP - General Internal Medicine 08/17/24 documented as of this encounter
--- OUTSIDE RECORDS SUMMARY | 2024-10-01 17:23 | External Medical Summary | Summary of Care ---
Author Name Unknown Organization [facility] Address [address] [facility] [place] [address] Phone [phone] Care Team Providers Care Wildland Firefighter Name Role Phone Patti Posadas MD Primary Care Provider [phone] Reason for Visit * Reason Onset Date Comments Information 09/15/2024 Encounter Details Date Type Department Care Team (Late st Contact Info) Description 09/15/2024 Telephone Cardiology, [facility] [address] [place] [phone] Walter Holt MD [address] [place] [address] Information Allergies Active Allergy Reactions Criticality Noted Date Comments Amoxicillin-Pot Clavulanate Other (Please comment) 01/14/2015 Severe Yeast infection Nitrofurantoin Liver complications (Please comment) 07/13/2024 See [facility] hospitalization dated 07/08/24 Morphine And Codeine Unknown [...] Triamcinolone Acetonide 0.5 % External Cream (Aristocort)Indica tions:Consumer Loan Processor's papule Apply 0.5 g topically to affected [...] 90 Tablet 3 04/24/20 24 Active Nystatin 133589 UNIT/GM External Powder (Nystop)Indication s:Candidal skin infection [...] 1/2 tablet before bedtime. 30 Tablet 11 5 11:18 AM EDT 09/16/19 25 Active Carvedilol 6.25 MG Oral Tablet (Coreg) Take 1 Tablet by mouth in the morning and 1 Tablet before bedtime. With meals.. 180 Tablet 3 11/14/19 24 025 Discontinu ed(Patient preference /discontin uation) Levothyroxine Sodium 125 MCG Oral Tablet (Levoxyl)Indicatio ns:Acquired hypothyroidism TAKE ONE TABLET BY MOUTH EVERY DAY AT LEAST 30 MINUTES PRIOR TO BREAKFAST OR OTHER MEDICATIONS 90 Tablet 2 12/16/19 24 025 Discontinu ed(Patient preference /discontin uation) Montelukast Sodium 10 MG Oral Tablet (Singulair)Indicat ions:Allergic rhinitis due to other allergic trigger, unspecified seasonality Take 1 Tablet by mouth in the morning. In the morning.. 90 Tablet 2 12/16/19 24 025 Discontinu ed(Refill) Atorvastatin Calcium 10 MG Oral Tablet (Lipitor)Indicatio ns:Dyslipidemia Take 1 Tablet by mouth in the morning. In the morning.. 90 Tablet 2 12/16/19 24 025 Discontinu ed(Refill) metFORMIN HCl 500 MG Oral Tablet (Glucophage) TAKE ONE TABLET BY MOUTH TWICE DAILY with morning and evening meals. 180 Tablet 2 12/16/19 24 025 Discontinu ed(Refill) hydrALAZINE HCl 10 MG Oral Tablet (Apresoline) Take 1 Tablet by mouth 3 times a day as needed (hypertension if SBP is more than 170/). 90 Tablet 5 03/20/20 24 025 Discontinu ed(Patient preference /discontin uation) NIFEdipine ER 30 MG Oral Tablet Extended Release 24 Hour (Adalat CC) TAKE ONE TABLET BY MOUTH EVERY MORNING 90 Tablet 3 05/25/20 24 025 Discontinu ed(Patient preference /discontin uation) Midodrine HCl 2.5 MG Oral Tablet (Proamatine) TAKE ONE TABLET BY MOUTH TWICE DAILY NEEDED FOR orthostatic hypotension (less THAN 80/50) 60 Tablet 5 08/07/19 25 Discontinu ed(Patient preference /discontin uation) Cephalexin 500 MG Oral Capsule (Keflex) Take 1 Capsule by mouth in the morning and 1 Capsule at noon and 1 Capsule before bedtime. 09/13/19 25 oxyCODONE-Acetamin ophen 5-325 MG Oral Tablet (Percocet) Take 1 Tablet by mouth every 6 hours as needed. 09/12/19 25 Discontinu ed(Refill) documented as of this encounter [...] MWT Genetic Sleep Disorder Resea [facility] Other*[id number] 08/27/2011 01/18/2016 Routine general medical exam ination [...] No 09/21/2024 Does the household have a [facility] source of income? 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 Also faxed to number provided by patient - . * Telephone Encounter - Faina Abernathy LPN - 09/15/2024 1:34 PM EDT Neha calling with an updated fax number to fax office note from today [phone] attention Ameena Montanez. documented in this encounter Plan of Treatment Upcoming Encounters Date Type Department Care Team (Latest Contact Info) Description 10/28/2024 12:00 PM EDT Office Visit Gastroenterology, [facility] [address] [place] [phone] Heriberto Cutler CRNP [address] [place] [address] 12/03/2024 11:00 AM EDT Office Visit Cardiology, [facility] [address] [place] [phone] Walter Holt MD [address] [place] [address] 12/14/2024 11:45 AM EDT Hospital Encounter ENDO OSS[facility], Endoscopy Room [facility] [address] [place] [address] Anais Price MD [address] [place] [address] 12/14/2024 11:45 AM EDT - 12/14/2024 12:15 PM EDT Surgery ENDO [facility], Endoscopy Room [facility] [address] [place] [phone] Anais Price MD [address] [place] [address] COLONOSCOPY FLEXIBLE PROXIMAL DIAGNOSTIC 12/25/2024 11:20 AM EDT Office Visit Nephrology, [facility] [address] [place] [address] Dre Felix MD [address] [place] [address] 12/25/2024 12:20 PM EDT Office Visit [facility] [address] [place] [phone] Patti Posadas MD [address] [facility] [address] 03/04/2025 2:30 PM EDT Office Visit [facility] [place] [address] [place] [phone] Salome Gordillo CRNP [address] [place] [address] Scheduled Procedures Name Priority Associated Diagnoses Date/Ti [...] Additional history exists CKD PHOS USE SMARTSET 69215 03/23/202512/2023, 08/12/2023, 03/12/2022, Additional history exists Diabetic Eye Exam 07/27/2025 07/27/2024, , 06/11/2023, Additional history exists B-12 07/31/2025 07/31/2024, 02/15, 08/28/2022, Additional history exists CKD HGB USE SMARTSET 72221 07/31/202507/31, 07/31/2024, 07/16/2024, Additional history exists Depression [...] filedocumented as of this encounter Care Teams Wildland Firefighter Relationship Specialty Start Date End Date Patti Posadas MD [address] [place] [address] [place] [address] PCP - General Internal Medicine 08/17/24 documented as of this encounter
--- OUTSIDE RECORDS SUMMARY | 2024-10-01 17:23 | External Medical Summary | Summary of Care ---
Author Name Unknown Organization [facility] Address [address] [facility] [place] [address] Phone [phone] Care Team Providers Care Overage Shortage And Damage Clerk Name Role Phone Patti Posadas MD Primary Care Provider [phone] Reason for Visit * Reason Onset Date Comments Order Request 09/25/2024 Encounter Details Date Type Department Care Team (Late st Contact Info) Description [facility] [address] [phone] Patti Posadas MD [address] [address] Order Request Allergies Active Allergy Reactions Criticality Noted Date Comments Amoxicillin-Pot Clavulanate Other (Please comment) 01/14/2015 Severe Yeast infection Nitrofurantoin Liver complications (Please comment) 07/13/2024 See [facility] hospitalization dated 07/08/24 Morphine And Codeine Unknown [...] meals.. 180 Tablet 3 11/14/19 24 Active Additional Information Patient not taking.Reported on 09/15/2024 Albuterol Sulfate HFA 108 (90 Base) MCG/ACT [...] mg OralHS, In the morning., Reported on 09/15/2024 metFORMIN HCl 500 MG Oral Tablet (Glucophage) [...] Triamcinolone Acetonide 0.5 % External Cream (Aristocort)Indica tions:Materials And Corrosion Engineer's papule Apply 0.5 g topically to affected [...] 170/). 90 Tablet 5 03/20/20 24 Active Additional Information Patient not taking.Reported on 09/15/2024 Fluticasone-Salmet sadia 250-50 MCG/ACT Inhalation Aerosol Powder Breath Activated (Advair Diskus) Inhale 1 Puff by mouth in the morning and 1 Puff before bedtime. Rinse mouth after use.. 180 Each 3 03/27/20 24 Active Aspirin Low Dose 81 MG Oral Tablet Delayed Release (aspirin enteric coated) TAKE ONE TABLET BY MOUTH EVERY MORNING 90 Tablet 3 04/24/20 24 Active Nystatin 365550 UNIT/GM External Powder (Nystop)Indication s:Candidal skin infection APPLY TOPICALLY TO THE AFFECTED AREA THREE TIMES DAILY 30 g 3 05/07/20 24 Active NIFEdipine ER 30 MG Oral Tablet Extended Release 24 Hour (Adalat CC) TAKE ONE TABLET BY MOUTH EVERY MORNING 90 Tablet 3 05/25/20 24 Active Additional Information Patient not taking.Reported on 09/15/2024 Bladder Control Pads RegularIndications :Urinary incontinence Patient using 8-10 pads daily; 1 month supply = Qty 300 300 Each 12 06/26/19 25 Active Midodrine HCl 2.5 MG Oral Tablet (Proamatine) TAKE ONE TABLET BY MOUTH TWICE DAILY NEEDED FOR orthostatic hypotension (less THAN 80/50) 60 Tablet 5 08/07/19 25 Active Additional Information Patient not taking.Reported on 09/15/2024 Fluticasone Propionate 50 MCG/ACT Nasal Suspension (Flonase)Indicatio [...] mouth in the morning. 09/08/19 25 Active oxyCODONE-Acetamin ophen 5-325 MG Oral Tablet (Percocet) Take 1 Tablet by mouth every 6 hours as needed. 09/12/19 25 Active Metoprolol Succinate ER 25 MG Oral Tablet Extended Release 24 Hour (Toprol XL) Take 1/2 tablet by mouth in the morning and 1/2 tablet before bedtime. 30 Tablet 11 09/15/2024 11:18 AM EDT 09/16/19 25 Active Normal Saline Flush 0.9 % Intravenous Solution Use 1 syringe (10 ml) to flush left PCN tube every 2 to 3 days - more often if with decreased uninary output 600 mL 3 09/23/2024 11:27 AM EDT 09/23/19 25 Active documented as of this encounter [...] disorder) 03/25/2018 Gastroesophageal reflux disease 03/25/2018 Old AL (myocardial infarction) 03/25/2018 Mild persistent asthma without [...] MWT Genetic Sleep Disorder Resea [facility] Other*[id number] 08/27/2011 01/18/2016 Routine general medical exam ination [...] 09/21/2024 Does the household have a re lar [...] 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 on file Not on file Not on file disability Not on file Not on file Not on file documented as of this encounter Miscellaneous Notes * Addendum Note - Patti Posadas MD - 09/28/2024 9:03 AM EDTAddended by: PATTI POSADAS on: 09/28/2024 09:03 AM Modules accepted: Orders * Telephone Encounter - Patti Posadas MD - 09/28/2024 9:02 AM EDT I put order in Please let me know if this is not right order * Telephone Encounter - Shima Gonzalez OSA - 09/25/2024 2:02 PM EDT Hello we see a referral for the Nephrostomy exchange but we need an order placed we can't schedule with that, thank you so much documented in this encounter Plan of Treatment Upcoming Encounters Date Type Department Care Team (Latest Contact Info) Description 09/28/2024 11:40 AM EDT Office Visit [facility] Herber Nieto [address] [phone] Patti Posadas MD [address] [address] 10/28/2024 12:00 PM EDT Office Visit Gastroenterology, [facility] [address] [phone] Heriberto Cutler CRNP [address] [place] [address] 12/03/2024 11:00 AM EDT Office Visit Cardiology, [facility] [address] [place] [phone] Walter Holt MD [address] [place] [address] 12/14/2024 11:45 AM EDT Hospital Encounter ENDO [facility], Endoscopy Room [facility] [address] [phone] Anais Price MD [address] [address] 12/14/2024 11:45 AM EDT - 12/14/2024 12:15 PM EDT Surgery ENDO [facility], Endoscopy Room [facility] [address] [place] [phone] Anais Price MD [address] [place] [address] COLONOSCOPY FLEXIBLE PROXIMAL DIAGNOSTIC 12/25/2024 11:20 AM EDT Office Visit Nephrology, [facility] [address] [facility] [place] [address] Dre Felix MD [address] [place] [address] 03/04/2025 2:30 PM EDT Office Visit Sleep Disorders Ctr [facility] [address] [place] [phone] Salome Gordillo CRNP [address] [place] [address] Scheduled Orders Name Type Priority Associated Diagnoses Orde r Schedule EXCHANGE NEPHROSTOMY CATHETER, PERC (SITE ONLY) Procedures Routine Nephrostomy status (HCC) Ordered: 09/28/2024 Scheduled Procedures Name Priority Associated Diagnoses Date/Ti [...] Additional history exists CKD PHOS USE SMARTSET 79413 03/23/2025 10/0 12/2023, 08/12/2023, 03/12/2022, Additional history exists O2 ASSESSMENT COMPLETED IN PAST YEAR FOR COPD 07/16/2025 07/16/2024 Diabetic Eye Exam 07/27/2025 07/27/2024, , 06/11/2023, Additional history exists B-12 07/31/2025 07/31/2024, 02/15, 08/28/2022, Additional history exists CKD HGB USE SMARTSET 29891 07/31/202507/31, 07/31/2024, 07/16/2024, Additional history exists Depression Monitoring 09/21/2025 09/21/2024, 025 Cologuard 03/20/2027 03/20/2024, 05/13/2017 Lipid Panel 06/11/2028 [...] as of this encounter Visit Diagnoses Diagnosis Nephrostomy status (HCC)- Primary Status of other artificial opening of urinary tract History of colon polyps Personal history of colonic polyps documented in this encounter Care Teams Overage Shortage And Damage Clerk Relationship Specialty Start Date End Date Patti Posadas MD [address] [facility] [place] [address] PCP - General Internal Medicine 08/17/24 documented as of this encounter
--- OUTSIDE RECORDS SUMMARY | 2024-10-01 17:23 | External Medical Summary | Summary of Care ---
Author Name Unknown Organization [facility] Address [address] [facility] [place] [address] Phone [phone] Care Team Providers Care Community Life Director Name Role Phone Patti Posadas MD Primary Care Provider [phone] Reason for Referral * Precert (Within 10 days (routine)) - Authorized Specialty Diagnoses / Procedures Referred By Contac t Referred To Contact Radiology Diagnoses Chronic kidney disease, stage 3a (HCC) Procedures IR GENITORINARY NEPHRO/CYSTO/URETERAL Yousuf Patino MD [address] [place] [address] Phone: tel: fax: Referral ID Status Reason Start Date Expiration Date V isits Requested Visits Authorized [id number] Authorized 09/29/[id number] Encounter Details Date Type Department Care Team (Late st Contact Info) Description 09/29/2024 Orders Only Interventional Radiology [address] [place] [address] [address] [place] [address] [facility] [address] [facility] [place] [address] Chronic kidney disease, stage 3a (HCC)* Allergies Active Allergy Reactions Criticality Noted Date Comments Amoxicillin-Pot Clavulanate Other (Please comment) 01/14/2015 Severe Yeast infection Nitrofurantoin Liver complications (Please comment) 07/13/2024 See [facility] hospitalization dated 07/08/24 Morphine And Codeine [...] classification ([facility]) Use with albuterol inhaler. 1 Each 4 [...] Triamcinolone Acetonide 0.5 % External Cream (Aristocort)Indica tions:Estate Planning Paralegal's papule Apply 0.5 g topically to affected [...] MORNING 90 Tablet 3 4 Active Nystatin 181983 UNIT/GM External Powder (Nystop)Indication s:Candidal skin infection [...] 0.5 Tablets before bedtime. TAKE WITH PRAZOSIN. 5 Active Fluconazole 100 MG Oral Tablet (Diflucan) Take 1 Tablet by mouth in the morning. 5 Active Metoprolol Succinate ER 25 MG Oral Tablet Extended Release 24 Hour (Toprol XL) Take 1/2 tablet by mouth in the morning and 1/2 tablet before bedtime. 30 Tablet 11 09/15/2024 11:18 AM EDT 5 Active Normal Saline Flush 0.9 % Intravenous [...] bedtime. In the morning. 90 Tablet 3 5 Active metFORMIN HCl 500 MG Oral Tablet (Glucophage) TAKE ONE TABLET BY MOUTH TWICE DAILY with morning and evening meals. 180 Tablet 3 5 Active Montelukast Sodium 10 MG Oral Tablet (Singulair)Indicat ions:Allergic rhinitis due to other allergic trigger, unspecified seasonality Take 1 Tablet by mouth in the morning. In the morning.. 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 Not on file Not on file disability Not on file Not on file Not on file documented as of this encounter Plan of Treatment Upcoming Encounters Date Type Department Care Team (Latest Contact Info) Description 10/12/2024 7:00 AM EDT Laboratory Lab Mobile Phlebot[facility] [place] [address] [place] [address] Janette [facility] Mobile Home Draw [address] [place] [address] 10/28/2024 12:00 PM EDT Office Visit Gastroenterology, [facility] [address] [place] [phone] Heriberto Cutler CRNP [address] [place] [address] 12/03/2024 11:00 AM EDT Office Visit Cardiology, [facility] [address] [place] [phone] Walter Holt MD [address] [place] [address] 12/14/2024 11:45 AM EDT Hospital Encounter ENDO [facility], Endoscopy Room [facility] [address] [place] [phone] Anais Price MD [address] [place] [id number] 12/14/2024 11:45 AM EDT - 12/14/2024 12:15 PM EDT Surgery ENDO [facility], Endoscopy Room [facility] [address] [place] [phone] Anais Price MD [address] [place] [id number] COLONOSCOPY FLEXIBLE PROXIMAL DIAGNOSTIC 12/25/2024 11:20 AM EDT Office Visit Nephrology, [facility] [address] [place], [place] [address] Dre Felix MD [address] [facility] [place], [place] [address] 12/25/2024 12:20 PM EDT Office Visit [facility] [address] [phone] Patti Posadas MD [address] [address] 03/04/2025 2:30 PM EDT Office Visit Sleep Disorders Ctr [facility] [address] [place] [phone] Salome Gordillo CRNP [address] [place] [address] Scheduled Orders Name Type Priority Associated Diagnoses Order Schedule IR GENITORINARY NEPHRO/CYSTO/URETERAL Medical Imaging Routine Chronic kidney disease, stage 3a (HCC) Expected: 09/29/2024, Expires: 10/29/2025 IR GENITORINARY NEPHRO/CYSTO/URETERAL Medical Imaging Routine One Time f or 1 Occurrences starting 09/30/2024 until 09/30/2024 Scheduled Procedures Name Priority Associated Diagnoses Date/Ti [...] Additional history exists CKD PHOS USE SMARTSET 56099 03/23/2025 10/0 12/2023, 08/12/2023, 03/12/2022, Additional history exists Diabetic Eye Exam 07/27/2025 07/27/2024, , 06/11/2023, Additional history exists B-12 07/31/2025 07/31/2024, 02/15, 08/28/2022, Additional history exists CKD HGB USE SMARTSET 18229 07/31/202507/31, 07/31/2024, 07/16/2024, Additional history exists Depression [...] of this encounter Visit Diagnoses Diagnosis Chronic kidney disease, stage 3a (HCC)- Primary History of colon polyps Personal history of colonic polyps documented in this encounter Care Teams Community Life Director Relationship Specialty Start Date End Date Patti Posadas MD [address] [address] PCP - General Internal Medicine 08/17/24 documented as of this encounter
[2024-10-01] MEDS: MAGNESIUM SULFATE / D5W 1 GM/100 ML BAG IV ONE (18:08)
[2024-10-01] MEDS: levoFLOXacin/D5W 250 MG/50 ML BAG IV ONE (19:09)
[2024-10-01] MEDS: ACETAMINOPHEN 325 MG TAB PO PRN (19:41)
[2024-10-01] MEDS ORDERED: LORazepam 0.5 MG TAB PO PRN (20:30)
[2024-10-01] MEDS ORDERED: GLUCOSE 10 TAB/TUBE PO PRN (20:32)
[2024-10-01] MEDS ORDERED: GLUCOSE 40% GEL 15 GM TUBE PO PRN (20:32)
[2024-10-01] MEDS ORDERED: DEXTROSE 50% 50 ML SYRINGE IV PRN (20:32)
[2024-10-01] MEDS ORDERED: CARBOHYDRATES FOR HYPOGLYCEMIA PO PRN (20:32)
[2024-10-01] MEDS ORDERED: GLUCAGON FOR INJ 1 MG VIAL SQ PRN (20:32)
[2024-10-01 20:40] LABS: Hematocrit (blood only) 26.9 % (37.0-47.0); Hemoglobin 9.3 g/dl (12.0-16.0)
[2024-10-01] MEDS: METOPROLOL SUCC 25MG EXT REL TAB PO SCH (21:09)
[2024-10-01] MEDS: SODIUM CHLORIDE 1 GM TABLET PO SCH (21:10)
[2024-10-01] MEDS: MIRTAZAPINE TAB 15 MG TAB PO SCH (21:10)
[2024-10-01] MEDS: PRAZOSIN HCL 1 MG CAP PO SCH (21:11)
[2024-10-01] MEDS: PERPHENAZINE 2 MG TAB PO SCH (21:11)
[2024-10-01] MEDS: FAMOTIDINE 20 MG TAB PO SCH (21:24)
[2024-10-01] MEDS: INSULIN ASPART PER UNIT CHARGE SC SCH (21:25)
[2024-10-02 01:27] LABS: Hematocrit (blood only) 24.5 % (37.0-47.0); Hemoglobin 8.6 g/dl (12.0-16.0)
[2024-10-02] MEDS: LEVOTHYROXINE SODIUM 150 MCG TABLET PO SCH (05:53)
[2024-10-02 06:56] LABS: Basophils # (auto) 0.03 K/uL (0.00-0.20); Basophils % (auto) 0.4 %; Eosinophils # (auto) 0.24 K/uL (0.00-0.50); Eosinophils % (auto) 3.4 %; Hematocrit (blood only) 27.2 % (37.0-47.0); Hemoglobin 9.4 g/dl (12.0-16.0); Immature Granulocytes # (auto) 0.03 K/uL (0.01-0.20); Immature Granulocytes % (auto) 0.4 %; Lymphocytes # (auto) 0.88 K/uL (1.20-3.40); Lymphocytes % (auto) 12.3 %; Mean Corpuscular Hemoglobin 29.3 pg (25.0-34.0); Mean Corpuscular Hgb Conc 34.6 g/dL (32.0-36.0); Mean Corpuscular Volume 84.7 fL (80.0-100.0); Monocytes # (auto) 0.77 K/uL (0.11-0.59); Monocytes % (auto) 10.8 %; Neutrophils % (auto) 72.7 %; Platelet Count 233 K/uL (130-400); RDW Coefficient of Variation 13.7 % (11.5-14.5); RDW Standard Deviation 42.5 fL (36.4-46.3); Red Blood Count 3.21 M/uL (4.20-5.40); White Blood Count 7.15 K/ul (4.8-10.8)
[2024-10-02 07:13] LABS: BUN Creatinine Ratio 6.9 (10-20); Calcium 8.6 mg/dl (8.6-10.3); Creatinine Clr Calc Pharmacy 33.2 ml/min; Magnesium 2.3 mg/dl (1.7-2.4); Potassium 4.6 mmol/L (3.5-5.1)
[2024-10-02] MEDS: CITALOPRAM 20 MG TAB PO SCH (08:00)
[2024-10-02] MEDS: CETIRIZINE HCL 10 MG TABLET PO SCH (08:00)
[2024-10-02] MEDS: MAGNESIUM OXIDE 400 MG TAB PO SCH (08:01)
[2024-10-02] MEDS: MONTELUKAST SODIUM 10 MG TABLET PO SCH (08:01)
[2024-10-02] MEDS ORDERED: CITALOPRAM 20 MG TAB PO SCH (09:00)
[2024-10-02] MEDS: DOXEPIN HCL 25 MG CAPSULE PO SCH (09:00)
--- NOTE | 2024-10-02 11:04 | Urology Progress Note ---
Date of Service October 02, 2024 Assessment & Plan (1) Bladder tumor: (2) Bladder cancer: (3) Gross hematuria: (4) Obstruction of Zimmerman catheter: (5) Nephrostomy present: Plan: 73-year-old female with history of bladder cancer status post TURBT (09/16/24) and left nephrostomy tube placement at [facility] who was admitted for hematuria and clot retention. Patient afebrile, hemodynamically stable Labs reviewedcreatinine 1.59, WBC 7.15, hemoglobin 9.4 (received 2 units PRBCs) Continue to trend labs and transfuse as necessary per hospital medicine service Urine culture prelim with Enterococcus Prior urine culture on 09/27 grew out Klebsiella, Citrobacter and Morganella She is currently on Levofloxacin, follow culture data Bladder was full of clot on CT scan, but hopefully now free of clot after hand irrigation Manually irrigated out some more clots during exam today, resumed CBI on slow Continue CBI and wean as appropriate Nursing can irrigate catheter to remove clots if it becomes obstructed No acute intervention today, will continue to monitor Continue antibiotics and supportive care per hospital medicine service will follow closely Admission and Anticipated Discharge Date Admission Date: October 01, 2024 Subjective Patient seen and examined at bedside this morning. One of her home nurses is addy siting at bedside. Patient reports her catheter required manual irrigation once or twice with nursing. Denies fever or chills. Zimmerman draining pink urine with CBI on slow. She reports some bladder discomfort while we were talking. I stopped CBI and manually irrigated her bladder with approximately 500 mL of sterile water with return of moderate amount of small to medium sized clots. I irrigated until there was no additional clots returned and urine was light pink. Patient tolerated well and CBI was restarted on a slow pace. Review of Systems Constitutional: as per Subjective / HPI Genitourinary: as per Subjective / HPI Physical Exam Constitutional: + obese; no acute distress Respiratory: no respiratory distress and no labored breathing Musculoskeletal: Head/Neck/Chest: normocephalic Neurologic: moves all extremities and awake Psychiatric: Orientation: alert, oriented x 3 and cooperative Genitourinary: Zimmerman draining pink urine with CBI on slow. Manually irrigated catheter as note d in HPI, then resumed CBI on slow. Results & Data Vital Signs (Past 12 Hours) Vital Signs Temp Pulse Pulse Resp BP Pulse Ox O2 Del Method 10/02/24 10:44 Room Air 10/02/24 08:17 36.7 C 86 18 153/85 H 100 Oxymask 10/02/24 07:44 91 H 10/02/24 04:31 36.8 C 95 H 16 117/74 98 Room Air PG Care Time/CCT Total # of Minutes Spent Total Time Spent with Patient: Total time spent is greater than 50% in coordination of care (as documented) at patient's floor/unit and/or counseling patient: Coding Level of Care Code 99063 SUB INP/OBS CARE 3/50MIN Diagnoses Bladder tumor D49.4 Bladder cancer C67.9 Gross hematuria R31.0 Obstruction of Zimmerman catheter T83.091A Nephrostomy present Z93.6
[2024-10-02] MEDS: DOCUSATE SODIUM 100 MG CAP PO SCH (11:17)
[2024-10-02] MEDS ORDERED: Nursing to Pharmacy Communication SCH (11:45)
[2024-10-02] MEDS: INSULIN ASPART PER UNIT CHARGE SC SCH (12:22)
[2024-10-02 12:27] LABS: Hematocrit (blood only) 24.7 % (37.0-47.0); Hemoglobin 8.4 g/dl (12.0-16.0)
--- NOTE | 2024-10-02 14:28 | Hospitalist Progress Note ---
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 Pt underwent resection/debulking of bladder tumor on 09/16, developed hematuria about four days ago, had Zimmerman replaced two days ago due to urinary retention. Diagnosed with UTI in the ED on 09/27, started on cefpodoxime but this was changed to ciprofloxacin two days ago based on urine culture results. She presented to the ED today with new weakness, fatigue, and syncopal event - found to have acute blood loss anemia in the setting of hematuria with almost 4 g drop in hemoglobin. Pt was referred for admission for further management of hematuria and anemia. Acute blood loss anemia Gross hematuria - suspect related to recent procedure Bladder cancer s/p recent resection/debulking Complicated UTI Nephrostomy related UTI causing gross hematuria --CT ABD: Large area of hyperattenuating tissue has developed within the urinary bladder since the prior study. This is consistent with a large blood clot from the patient's known bladder cancer. --S/P 2 units PRBCs --Aspirin on hold --Urine culture: Preliminarily growing Enterococcus faecalis --Blood cultures negative to date --Empirically on Levaquin, will add daptomycin Continues bladder irrigation as per urology Appreciate urology input Monitor H&H and transfuse as needed Patient has follow-up with medical oncology scheduled for next week as outpatient Constipation Started on bowel regimen Minimize opiates as able Hypomagnesemia Replete and monitor Diabetes mellitus - type 2 Continue insulin per protocol Monitor blood glucose levels Acute on chronic hyponatremia Sodium levels improved Continue salt tablets Monitor sodium Lower back pain Sclerotic bone lesion involving L2 vertebra noted on CT Likely metastatic disease from bladder cancer Possible plan for radiation therapy as outpatient per family Monitor Hypertension - Chronic, continue home meds Monitor BP Hypothyroid - Chronic, continue levothyroxine Anxiety - Continue outpatient meds ADRI Nocturnal hypoxia Continue supplemental oxygen and CPAP at bedtime Pulmonary nodules Incidental finding on CT Will recommend to get repeat CT in 3 to 6 months for further evaluation Morbid obesity BMI 43 DVT Px: SCDs re: Hematuria Admission and Anticipated Discharge Date Admission Date: October 01, 2024 Subjective Patient is seen and examined at bedside Hematuria slowly improving Reports having constipation and lower back pain Also reports dysuria, bladder spasms Family at bedside Denies any chest pain, dyspnea No other complaints Review of Systems Review of Systems: All systems reviewed & are unremarkable except as noted in Subjective Physical Exam Physical Exam: Physical Exam: Vitals signs as noted above General Appearance:Obese, no apparent distress Head: normocephalic, Atraumatic Eyes: normal inspection, EOMI Neck: supple, Trachea midline Respiratory/Chest: Normal breath sounds, CTA, No accessory muscle use Cardiovascular: S1, S2, No murmur Abdomen/GI:Soft, Non tender, Bowel sounds present,+ left nephrostomy tube Extremities/Musculoskeletal:normal inspection, 1+ edema Neurologic/Psych:AAOX3, grossly no focal neurological deficits Skin: normal color, warm Results & Data Results & Data Vital Signs (Past 12 Hours) Vital Signs Temp Pulse Pulse Resp BP Pulse Ox O2 Del Method 10/02/24 10:44 Room Air 10/02/24 08:17 36.7 C 86 18 153/85 H 100 Oxymask 10/02/24 07:44 91 H 10/02/24 04:31 36.8 C 95 H 16 117/74 98 Room Air Laboratory Results Short CBC 10/01/24 10/02/24 10/02/24 Range/Units 20:16 00:32 05:55 WBC 7.15 (4.8-10.8) K/ul Hgb 9.3 L 8.6 L 9.4 L (12.0-16.0) g/dl Hct 26.9 L 24.5 L 27.2 L (37.0-47.0) % Plt Count 233 (130-400) K/uL 10/02/24 Range/Units 12:09 WBC (4.8-10.8) K/ul Hgb 8.4 L (12.0-16.0) g/dl Hct 24.7 L (37.0-47.0) % Plt Count (130-400) K/uL BMP 10/02/24 05:55 Sodium 135 L Potassium 4.6 Chloride 99 Carbon Dioxide 30 BUN 11 Creatinine 1.59 H Glucose 108 H Calcium 8.6 (3) Bladder cancer Bladder location: lateral wall Qualified Code(s): C67.2 - Malignant neoplasm of lateral wall of bladder (4) CKD (chronic kidney disease), stage III Chronic kidney disease stage 3 subtype: unspecified whether 3a or 3b Qualified Code(s): N18.30 - Chronic kidney disease, stage 3 unspecified (5) Diabetes mellitus, type II Diabetes mellitus terminal block assembler insulin use: without shelter use Diabetes mellitus complication status: with other specified complication Qualified Code(s): E11.69 - Type 2 diabetes mellitus with other specified complication (6) COPD (chronic obstructive pulmonary disease) COPD type: unspecified COPD Qualified Code(s): J44.9 - Chronic obstructive pulmonary disease, unspecified
[2024-10-02] MEDS: DAPTOmycin 400 MG in SYRINGE 0 ML IV SCH (15:43)
[2024-10-02] MEDS: LORazepam 0.5 MG TAB PO PRN (15:45)
[2024-10-02] MEDS ORDERED: levoFLOXacin/D5W 500 MG/100 ML BAG IV SCH (16:00)
[2024-10-02] MEDS: oxyCODONE/ACETAMINOPHEN 5mg/325mg TAB PO PRN (20:06)
[2024-10-02 21:46] LABS: Hematocrit (blood only) 25.4 % (37.0-47.0); Hemoglobin 8.6 g/dl (12.0-16.0)
[2024-10-03 06:30] LABS: Hematocrit (blood only) 23.4 % (37.0-47.0); Hemoglobin 7.8 g/dl (12.0-16.0); Mean Corpuscular Hemoglobin 29.1 pg (25.0-34.0); Mean Corpuscular Hgb Conc 33.3 g/dL (32.0-36.0); Mean Corpuscular Volume 87.3 fL (80.0-100.0); Mean Platelet Volume 10.7 fL (9.4-12.4); Platelet Count 218 K/uL (130-400); RDW Standard Deviation 44.2 fL (36.4-46.3); Red Blood Count 2.68 M/uL (4.20-5.40); White Blood Count 7.56 K/ul (4.8-10.8)
[2024-10-03 06:59] LABS: Calcium 8.2 mg/dl (8.6-10.3); Potassium 4.4 mmol/L (3.5-5.1)
[2024-10-03 07:05] LABS: BUN Creatinine Ratio 8.1 (10-20)
[2024-10-03] MEDS: POLYETHYLENE (MIRALAX) 17 GM PACK PO PRN (11:19)
[2024-10-03] MEDS: PHENAZOPYRIDINE HCL 100 MG TAB PO PRN (12:25)
--- NOTE | 2024-10-03 12:56 | Urology Progress Note ---
Date of Service October 03, 2024 Assessment & Plan (1) Bladder tumor: (2) Bladder cancer: (3) Gross hematuria: (4) Obstruction of Zimmerman catheter: (5) Nephrostomy present: Plan: 73-year-old female with history of bladder cancer status post TURBT (09/16/24) and left nephrostomy tube placement at [facility] who was admitted for hematuria and clot retention. Patient afebrile, hemodynamically stable Labs reviewedcreatinine 1.85, WBC 7.56, hemoglobin now at 7.8 (previous received 2 units PRBCs) Continue to trend labs and transfuse as necessary per hospital medicine service Urine culture prelim with Enterococcus. On broad-spectrum antibiotics. Has previously had significant issues with infections with multiple species such as Klebsiella, Citrobacter and Morganella She is currently on antibiotic coverage. Severe clot material in the past with extensive irrigation. Patient still has significant hematuria however does appear to be draining considerably better without severe or major development of clot material this morning. Can continue to Manually irrigated out as needed by nursing. Recommend continuing CBI with titrating the flow to clear. Continue CBI and wean as appropriate Nursing can irrigate catheter to remove clots if it becomes obstructed Continue antibiotics and supportive care per hospital medicine service Will plan to continue to monitor. If patient develops worsening issues or becomes unstable develops severe hypotension or other major issues may need to have repeat investigation. Patient did state that at this point she is hungry and would like to have coffee. Not currently planning to move forward with intervention at this time we will let nursing know to allow patient to resume diet. Can make n.p.o. again at midnight if concern for worsening clots or other issues. Admission and Anticipated Discharge Date Admission Date: October 01, 2024 Subjective Patient with history of bladder tumor. Had undergone resection in outlying facility. Patient had presented with severe episode of gross hematuria. Patient seen and examined at bedside this morning. Patient states she is doing better overnight into this morning. Has been monitoring output. Has not had severe obstruction with clot material. Has undergone extensive irrigation due to clots throughout hospitalization. Has been monitoring blood work. Denies fever or chills. Zimmerman draining light red urine with CBI on slow. Patient has been having episodes of spasms and discomfort. States that it feels like bowel pressure however if she feels it is likely coming from the bladder. Did discuss this may be related to bladder spasms. Has not been severe. Has been tolerable but uncomfortable. Comes in waves and does have some mild radiation into the bowel/rectal area Review of Systems Review of Systems: All systems reviewed & are unremarkable except as noted in HPI & below Physical Exam Physical Exam: General: Alert in no acute distress. Obese. HEENT: Normocephalic Atraumatic. Inspection normal. Cranial Nerves 2-12 Grossly intact. Normal inspection of face. Normal inspection of neck. Psychologic: Normal affect. Respiratory: Nonlabored. No use of accessory muscles. No tachypnea or dyspnea. Cardiovascular: No tachycardia Skin: [place] and Dry. No rashes or visible lesions. Extremities/Lymphatics: No edema Abdomen: Mildly distended. No rebound or guarding. : Zimmerman in place draining light red urine. No significant clot material or debris within the tubing Results & Data Vital Signs (Past 12 Hours) Vital Signs Temp Pulse Pulse Resp BP Pulse Ox O2 Del Method 10/03/24 11:00 37.0 C 88 16 135/74 97 Oxymask 10/03/24 09:12 Room Air 10/03/24 07:24 36.7 C 70 18 125/63 96 Oxymask 10/03/24 07:00 79 10/03/24 03:03 36.6 C 89 16 133/79 97 Oxymask 10/02/24 23:30 84 O2 Flow Rate 10/03/24 11:00 4 10/03/24 09:12 10/03/24 07:24 4 10/03/24 07:00 10/03/24 03:03 10/02/24 23:30 PG Care Time/CCT Total # of Minutes Spent Total Time Spent with Patient: Total time spent is greater than 50% in coordination of care (as documented) at patient's floor/unit and/or counseling patient: Coding Level of Care Code 74050 SUB INP/OBS CARE 3/50MIN Diagnoses Bladder tumor D49.4 Bladder cancer C67.9 Bladder location: unspecified site Gross hematuria R31.0 Obstruction of Zimmerman catheter T83.091A Encounter type: initial encounter Nephrostomy present Z93.6 (2) Bladder cancer Bladder location: unspecified site Qualified Code(s): C67.9 - Malignant neoplasm of bladder, unspecified (4) Obstruction of Zimmerman catheter Encounter type: initial encounter Qualified Code(s): T83.091A - Other mechanical complication of indwelling urethral catheter, initial encounter
[2024-10-03] MEDS: SODIUM CHLORIDE 0.9% 1,000 ML IV ONE (13:05)
[2024-10-03] MEDS: AMPICILLIN 2,000 MG in SODIUM CHLOR 0.9% MINI-B 100 ML IV SCH (13:42)
[2024-10-03 14:47] LABS: Hematocrit (blood only) 22.8 % (37.0-47.0); Hemoglobin 7.6 g/dl (12.0-16.0)
--- NOTE | 2024-10-03 15:58 | Hospitalist Progress Note ---
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 Pt underwent resection/debulking of bladder tumor on 09/16, developed hematuria about four days ago, had Zimmerman replaced two days ago due to urinary retention. Diagnosed with UTI in the ED on 09/27, started on cefpodoxime but this was changed to ciprofloxacin two days ago based on urine culture results. She presented to the ED today with new weakness, fatigue, and syncopal event - found to have acute blood loss anemia in the setting of hematuria with almost 4 g drop in hemoglobin. Pt was referred for admission for further management of hematuria and anemia. Acute blood loss anemia Gross hematuria - suspect related to recent procedure Bladder cancer s/p recent resection/debulking Complicated UTI Nephrostomy related UTI causing gross hematuria --CT ABD: Large area of hyperattenuating tissue has developed within the urinary bladder since the prior study. This is consistent with a large blood clot from the patient's known bladder cancer. --S/P 2 units PRBCs --Aspirin on hold --Urine culture: Grew Enterococcus faecalis --Blood cultures negative to date --Empirically on Levaquin, daptomycin>> transition to ampicillin Day # 1 Continues bladder irrigation as per urology Appreciate urology input Monitor H&H and transfuse as needed Patient has follow-up with medical oncology scheduled for next week as outpatient Continue bladder irrigation per urology No plan for urological intervention currently Hemoglobin 7.6 today Constipation Continue bowel regimen Minimize opiates as able Hypomagnesemia Replete and monitor Diabetes mellitus - type 2 Continue insulin per protocol Monitor blood glucose levels Acute on chronic hyponatremia Sodium levels improved Continue salt tablets Monitor sodium: 137 today Lower back pain Sclerotic bone lesion involving L2 vertebra noted on CT Likely metastatic disease from bladder cancer Possible plan for radiation therapy as outpatient per family Monitor Hypertension - Chronic, continue home meds Monitor BP Hypothyroid - Chronic, continue levothyroxine Anxiety - Continue outpatient meds ADRI Nocturnal hypoxia Continue supplemental oxygen and CPAP at bedtime Pulmonary nodules Incidental finding on CT Will recommend to get repeat CT in 3 to 6 months for further evaluation Morbid obesity BMI 43 DVT Px: SCDs re: Hematuria Admission and Anticipated Discharge Date Admission Date: October 01, 2024 Subjective Patient is seen and examined at bedside Noted mild reddish urine in catheter Patient states having bladder discomfort Still has lower back pain No other complaints today Denies any chest pain, dyspnea, abdominal pain Review of Systems Review of Systems: All systems reviewed & are unremarkable except as noted in Subjective Physical Exam Physical Exam: Physical Exam: Vitals signs as noted above General Appearance:Obese, no apparent distress Head: normocephalic, Atraumatic Eyes: normal inspection, EOMI Neck: supple, Trachea midline Respiratory/Chest: Normal breath sounds, CTA, No accessory muscle use Cardiovascular: S1, S2, No murmur Abdomen/GI:Soft, Non tender, Bowel sounds present,+ left nephrostomy tube Extremities/Musculoskeletal:normal inspection, 1+ edema Neurologic/Psych:AAOX3, grossly no focal neurological deficits Skin: normal color, warm Results & Data Results & Data Vital Signs (Past 12 Hours) Vital Signs Temp Pulse Pulse Resp BP Pulse Ox O2 Del Method 10/03/24 11:00 37.0 C 88 16 135/74 97 Oxymask 10/03/24 09:12 Room Air 10/03/24 07:24 36.7 C 70 18 125/63 96 Oxymask 10/03/24 07:00 79 O2 Flow Rate 10/03/24 11:00 4 10/03/24 09:12 10/03/24 07:24 4 10/03/24 07:00 Laboratory Results Short CBC 10/02/24 10/03/24 10/03/24 Range/Units 20:52 06:06 14:02 WBC 7.56 (4.8-10.8) K/ul Hgb 8.6 L 7.8 L 7.6 L (12.0-16.0) g/dl Hct 25.4 L 23.4 L 22.8 L (37.0-47.0) % Plt Count 218 (130-400) K/uL BMP 10/03/24 06:06 Sodium 137 Potassium 4.4 Chloride 102 Carbon Dioxide 31 BUN 15 Creatinine 1.85 H Glucose 116 H Calcium 8.2 L (3) Bladder cancer Bladder location: lateral wall Qualified Code(s): C67.2 - Malignant neoplasm of lateral wall of bladder (4) CKD (chronic kidney disease), stage III Chronic kidney disease stage 3 subtype: unspecified whether 3a or 3b Qualified Code(s): N18.30 - Chronic kidney disease, stage 3 unspecified (5) Diabetes mellitus, type II Diabetes mellitus terminal system operator insulin use: without terminal system operator use Diabetes mellitus complication status: with other specified complication Qualified Code(s): E11.69 - Type 2 diabetes mellitus with other specified complication (6) COPD (chronic obstructive pulmonary disease) COPD type: unspecified COPD Qualified Code(s): J44.9 - Chronic obstructive pulmonary disease, unspecified
[2024-10-03] MEDS: levoFLOXacin/D5W 750 MG/150 ML BAG IV SCH (16:30)
[2024-10-04 07:01] LABS: Hematocrit (blood only) 21.8 % (37.0-47.0); Hemoglobin 7.2 g/dl (12.0-16.0); Mean Corpuscular Volume 87.9 fL (80.0-100.0); Mean Platelet Volume 10.3 fL (9.4-12.4); Platelet Count 219 K/uL (130-400); RDW Coefficient of Variation 13.9 % (11.5-14.5); RDW Standard Deviation 44.4 fL (36.4-46.3); Red Blood Count 2.48 M/uL (4.20-5.40); White Blood Count 7.24 K/ul (4.8-10.8)
[2024-10-04 07:36] LABS: BUN Creatinine Ratio 9.9 (10-20); Calcium 8.2 mg/dl (8.6-10.3); Creatinine Clr Calc Pharmacy 32.3 ml/min; Magnesium 1.8 mg/dl (1.7-2.4); Potassium 4.4 mmol/L (3.5-5.1)
[2024-10-04] MEDS ORDERED: SODIUM CHLORIDE 0.9% 100 ML IV PRN (09:10)
[2024-10-04] MEDS: bisacodyL 10 MG SUPP PR ONE (10:23)
[2024-10-04] MEDS: DICLOFENAC SOD 1% GEL 100 GM TUBE EXT SCH (10:30)
--- NOTE | 2024-10-04 11:06 | Urology Progress Note ---
Date of Service October 04, 2024 Assessment & Plan (1) Bladder tumor: (2) Bladder cancer: (3) Gross hematuria: (4) Obstruction of Zimmerman catheter: (5) Nephrostomy present: Plan: 73-year-old female with history of bladder cancer status post TURBT (09/16/24) and left nephrostomy tube placement at [facility] who was admitted for hematuria and clot retention. Patient afebrile, hemodynamically stable Labs reviewed Creatinine is at 1.62. White count is at 7.24. Hemoglobin has now dropped to 7.2 after previous received 2 units PRBCs Hospitalist had ordered a unit of blood due to decreasing hemoglobin and continued issues with clot and hematuria. Urine culture prelim with Enterococcus. On broad-spectrum antibiotics. Has previously had significant issues with infections with multiple species such as Klebsiella, Citrobacter and Morganella She is currently on antibiotic coverage. Severe clot material in the past with extensive irrigation. Once again required irrigation overnight and into this morning. Reviewed extensively options. Patient has had increasing distress and anxiety about ongoing issues. Is worried about persistent bleeding. Discussed extensively options moving forward. Discussed option for cystoscopy with possible fulguration and transurethral resection of tumor. Discussed continued observation and monitoring. Discussed other options and alternatives. Urine from nephrostomy tube appears to continue to be clear and yellow. Patient would like to move forward with cystoscopy clot evacuation possible fulguration possible resection. Can continue to Manually irrigated out as needed by nursing. Recommend continuing CBI with titrating the flow to clear. Continue CBI and wean as appropriate after procedure Nursing can irrigate catheter to remove clots if it becomes obstructed Continue antibiotics and supportive care per hospital medicine service Plan to maintain n.p.o. status. Will plan to move forward with intervention for evaluation and management of ongoing bleed from likely invasive bladder cancer with recent resection. Risks and benefits discussed at length for procedure. These include bleeding, infection, injury to surrounding tissues or organs, and risks associated with anesthesia. Patient states understanding and agrees to proceed. Will sign consent and proceed. Plan for cystoscopy with possible clot evacuation possible fulguration possible transurethral resection of bladder tumor Admission and Anticipated Discharge Date Admission Date: October 01, 2024 Subjective Patient with history of bladder tumor found to be invasive bladder cancer. Had undergone resection in outlying facility. Patient had presented with severe episode of gross hematuria. Patient seen and examined at bedside this morning. Patient had significant issue with clots overnight and this morning. Had once again developed significant hematuria and had a drop in her hemoglobin down down to 7.2. After irrigating has improved slightly and with increase CBI does appear to be now just a light red color. Has undergone extensive irrigation due to clots throughout hospitalization. Has been monitoring blood work. Due to the drop in hemoglobin patient had been ordered to undergo transfusion. Denies fever or chills. Zimmerman currently draining light red urine with CBI open. Patient has been having episodes of spasms and discomfort. States that it feels like bowel pressure however if she feels it is likely coming from the bladder. Did discuss this may be related to bladder spasms. Has not been severe. Has been tolerable but uncomfortable. Comes in waves and does have some mild radiation into the bowel/rectal area Review of Systems Review of Systems: All systems reviewed & are unremarkable except as noted in HPI & below Physical Exam Physical Exam: General: Alert in no acute distress. Obese. HEENT: Normocephalic Atraumatic. Inspection normal. Cranial Nerves 2-12 Grossly intact. Normal inspection of face. Normal inspection of neck. Psychologic: Normal affect. Respiratory: Nonlabored. No use of accessory muscles. No tachypnea or dyspnea. Cardiovascular: No tachycardia Skin: [place] and Dry. No rashes or visible lesions. Extremities/Lymphatics: No edema Abdomen: Mildly distended. No rebound or guarding. Nephrostomy tube in place draining clear yellow urine : Zimmerman in place draining light red urine with CBI open. Currently no significant clot material or debris within the tubing Results & Data Vital Signs (Past 12 Hours) Vital Signs Temp Pulse Pulse Resp BP BP Pulse Ox 10/04/24 10:55 36.9 C 97 H 20 113/72 91 10/04/24 08:02 37.0 C 86 16 114/72 91 10/04/24 07:30 36.6 C 90 18 125/65 97 10/04/24 07:00 10/04/24 03:09 36.7 C 89 16 120/60 98 O2 Del Method O2 Flow Rate 10/04/24 10:55 2 10/04/24 08:02 Room Air 10/04/24 07:30 Oxymask 4 10/04/24 07:00 Room Air 10/04/24 03:09 Oxymask 4 PG Care Time/CCT Total # of Minutes Spent Total Time Spent with Patient: Total time spent is greater than 50% in coordination of care (as documented) at patient's floor/unit and/or counseling patient: Coding Level of Care Code 35274 SUB INP/OBS CARE 3/50MIN Diagnoses Bladder tumor D49.4 Bladder cancer C67.9 Bladder location: unspecified site Gross hematuria R31.0 Obstruction of Zimmerman catheter T83.091A Encounter type: initial encounter Nephrostomy present Z93.6 (2) Bladder cancer Bladder location: unspecified site Qualified Code(s): C67.9 - Malignant neoplasm of bladder, unspecified (4) Obstruction of Zimmerman catheter Encounter type: initial encounter Qualified Code(s): T83.091A - Other mechanical complication of indwelling urethral catheter, initial encounter
--- NOTE | 2024-10-04 11:34 | Anesthesiology Consultation ---
Date of Service October 04, 2024 Assessment & Plan Chart Review Chart Review: Acceptable Risk for Surgery, Patient NOT seen in Pre Admission Testing and entry level staff accountant initiated Consults Requested none History Surgery Operation Date: 10/04/24 12:00 Proposed Procedures p Transurethral Resection Bladder Tumor - Kade Zheng DO Height/Weight Height: 5 ft Weight: 99.5 kg Allergies Allergy/AdvReac Type Severity Reaction Status Date / Time Sulfa (Sulfonamide Allergy Severe face Verified 09/09/24 17:07 Antibiotics) tongue lips swelling,HEADACHE codeine AdvReac Intermediate N/V Verified 09/09/24 17:07 amoxicillin AdvReac Mild YEAST Verified 09/09/24 17:07 INFECTION clavulanic acid AdvReac Mild YEAST Verified 09/09/24 17:07 INFECTION nitrofurantoin AdvReac Unknown liver Verified 09/09/24 17:07 [From Macrobid] injury Medications Home Medications Medication Instructions Recorded Confirmed Last Taken albuterol sulfate 2.5 mg/3 mL 2.5 mg continuous nebulization Q4H 02/17/24 10/01/24 Unknown (0.083 %) solution for nebulization PRN Shortness Of Breath Or Wheezing albuterol sulfate 90 mcg/actuation 2 puff inhalation Q6H PRN 02/17/24 10/01/24 Unknown aerosol inhaler (Ventolin HFA) Shortness Of Breath Or Wheezing atorvastatin 10 mg tablet 10 mg PO QAM 02/17/24 10/01/24 09/09/24 cetirizine 10 mg tablet (Allergy 10 mg PO QAM 02/17/24 10/01/24 09/09/24 Relief (cetirizine)) citalopram 20 mg tablet 20 mg PO DAILY 02/17/24 10/01/24 09/09/24 doxepin 25 mg capsule 25 mg PO QAM 02/17/24 10/01/24 09/09/24 famotidine 20 mg tablet 20 mg PO BID 02/17/24 10/01/24 09/09/24 08:00 metformin 500 mg tablet 500 mg PO BIDM 02/17/24 10/01/24 09/09/24 08:00 mirtazapine 30 mg tablet 30 mg PO HS 02/17/24 10/01/24 09/08/24 montelukast 10 mg tablet 10 mg PO DAILY 02/17/24 10/01/24 09/09/24 tizanidine 4 mg tablet 4 mg PO Q8H PRN muscle spasms 02/17/24 10/01/24 Unknown vitamin B complex 1 cap PO DAILY 02/17/24 10/01/24 09/09/24 diclofenac sodium 1 % topical gel 2 g topical QID PRN Pain 03/04/24 10/01/24 Unknown (Arthritis Pain (diclofenac)) lorazepam 0.5 mg tablet 0.5 mg PO HS PRN ANXIETY/SLEEP 03/04/24 10/01/24 Unknown perphenazine 2 mg tablet 6 mg PO HS 03/04/24 10/01/24 09/08/24 turmeric 450 mg-turmeric root 1 cap PO DAILY 03/04/24 10/01/24 09/09/24 extract 50 mg capsule vitamin E (dl, acetate) 180 mg 180 mg PO BID 03/04/24 10/01/24 09/09/24 08:00 (400 unit) capsule citalopram 10 mg tablet (Celexa) 10 mg PO DAILY 06/06/24 10/01/24 09/09/24 garlic 1,000 mg capsule 1,000 mg PO QAM 06/06/24 10/01/24 09/09/24 magnesium oxide 400 mg PO DAILY 09/09/24 10/01/24 09/09/24 sodium chloride 1,000 mg soluble 500 mg (1/2 x 1,000 mg) PO TID #30 09/11/24 10/01/24 Unknown tablet tabs levothyroxine 150 mcg tablet 150 mcg PO DAILYBB #30 tabs 09/23/24 10/01/24 Unknown cefpodoxime 200 mg tablet 200 mg PO DAILY 10 days #10 tabs 09/27/24 10/01/24 Unknown metoprolol succinate 25 mg 12.5 mg PO BID 09/27/24 10/01/24 Unknown tablet,extended release 24 hr aspirin 81 mg tablet,delayed 81 mg PO DAILY 10/01/24 10/01/24 Unknown release ciprofloxacin HCl 500 mg tablet 500 mg PO DAILY 10/01/24 10/01/24 Unknown olopatadine 0.2 % eye drops 1 drp ophthalmic (eye) QAM 10/01/24 10/01/24 Unknown oxycodone-acetaminophen 5 mg-325 1 tab PO BID PRN pain 10/01/24 10/01/24 Unknown mg tablet (Percocet) prazosin 5 mg capsule 10 mg PO BID 10/01/24 10/01/24 Unknown triamcinolone acetonide 0.5 % 1 applic topical BID 10/01/24 10/01/24 Unknown topical cream Active Medications Generic Name Dose Route Start Last Admin Trade Name Freq PRN Reason Stop Dose Admin Acetaminophen 650 mg 10/01/24 17:46 10/02/24 07:13 Acetaminophen 325 Mg Tab PO 10/31/24 17:45 650 mg Q4H PRN Administration Pain or Fever Cetirizine HCl 10 mg 10/02/24 09:00 10/04/24 09:11 Cetirizine Hcl 10 Mg Tablet PO 11/01/24 08:59 10 mg QAM EROS Administration Citalopram Hydrobromide 30 mg 10/02/24 09:00 10/04/24 09:12 Citalopram 20 Mg Tab PO 11/01/24 08:59 30 mg DAILY EROS Administration Diclofenac Sodium 2 gm 10/04/24 10:00 10/04/24 10:30 Diclofenac Sod 1% Gel 100 Gm Tube EXT 11/03/24 09:59 2 gm BID EROS Administration Protocol Docusate Sodium 100 mg 10/02/24 10:30 10/04/24 09:21 Docusate Sodium 100 Mg Cap PO 11/01/24 10:29 100 mg BID EROS Administration Doxepin HCl 25 mg 10/02/24 09:00 10/04/24 09:12 Doxepin Hcl 25 Mg Capsule PO 11/01/24 08:59 25 mg QAM EROS Administration Famotidine 20 mg 10/01/24 21:00 10/04/24 09:22 Famotidine 20 Mg Tab PO 10/31/24 20:59 20 mg BID EROS Administration Levofloxacin/Dextrose 750 mg in 150 mls @ 100 mls/hr 10/03/24 16:00 10/03/24 18:00 Levaquin/D5w IV 10/13/24 15:59 Infused Q48H EROS Infusion Ampicillin Sodium 2,000 mg/ 100 mls @ 200 mls/hr 10/03/24 13:00 10/04/24 09:36 Sodium Chloride IV 10/13/24 12:59 Infused Q12 EROS Infusion Insulin Aspart 0 units 10/02/24 12:00 10/04/24 07:43 Insulin Aspart Per Unit Charge SC 10/31/24 20:59 Not Given ACHS EROS Levothyroxine Sodium 150 mcg 10/02/24 06:30 10/04/24 04:36 Levothyroxine Sodium 150 Mcg Tablet PO 11/01/24 06:29 150 mcg DAILYBB EROS Administration Lorazepam 0.5 mg 10/02/24 10:33 10/03/24 21:42 Lorazepam 0.5 Mg Tab PO 10/31/24 20:29 0.5 mg BID PRN Administration ANXIETY/SLEEP Magnesium Oxide 400 mg 10/02/24 09:00 10/04/24 09:13 Magnesium Oxide 400 Mg Tab PO 11/01/24 08:59 400 mg DAILY EROS Administration Metoprolol Succinate 12.5 mg 10/01/24 21:00 10/04/24 09:13 Metoprolol Succ 25mg Ext Rel Tab PO 10/31/24 20:59 12.5 mg BID EROS Administration Mirtazapine 30 mg 10/01/24 21:00 10/03/24 20:19 Mirtazapine Tab 15 Mg Tab PO 10/31/24 20:59 30 mg HS EROS Administration Miscellaneous 1 each 10/02/24 08:00 10/04/24 07:43 Olopatadine 0.2%~Order Awaiting Action N/A 11/01/24 07:59 Not Given QS EROS Montelukast Sodium 10 mg 10/02/24 09:00 10/04/24 09:14 Montelukast Sodium 10 Mg Tablet PO 11/01/24 08:59 10 mg DAILY EROS Administration Morphine Sulfate 1 mg 10/01/24 16:07 10/03/24 07:59 Morphine Sulfate 2 Mg/Ml Carp IV 10/15/24 16:06 1 mg Q4H PRN Administration Severe Pain (Scale 7, 8, 9,10) Oxycodone/Acetaminophen 1 tab 10/02/24 10:30 10/04/24 04:36 Oxycodone/Acetaminophen 5mg/325mg Tab PO 10/16/24 10:29 1 tab Q8H PRN Administration pain Perphenazine 6 mg 10/01/24 21:00 10/03/24 20:22 Perphenazine 2 Mg Tab PO 10/31/24 20:59 6 mg HS EROS Administration Phenazopyridine HCl 100 mg 10/02/24 10:29 10/04/24 10:29 Phenazopyridine Hcl 100 Mg Tab PO 11/01/24 10:28 100 mg TID PRN Administration Dysuria Polyethylene Glycol 17 gm 10/02/24 10:28 10/03/24 11:19 Polyethylene (Miralax) 17 Gm Pack PO 11/01/24 10:27 17 gm DAILY PRN Administration Constipation Prazosin HCl 10 mg 10/01/24 21:00 10/04/24 09:14 Prazosin Hcl 1 Mg Cap PO 10/31/24 20:59 10 mg BID EROS Administration Sodium Chloride 0.5 gm 10/01/24 21:00 10/04/24 09:16 Sodium Chloride 1 Gm Tablet PO 10/31/24 20:59 0.5 gm TID EROS Administration Past Medical History Medical History ADI (acute kidney injury) Cervical pain Greater trochanteric bursitis of left hip Acid reflux well controlled Obesity Fatty liver Arthritis Degenerative disc disease Sciatica Thyroid enlarged no dysphagia Asthma mild, "well controlled and stable", rare inhaler use Past Family History Family History Mother Family history of diabetes mellitus Aunt Family history of diabetes mellitus Son Family history of colon cancer Past Surgical History Surgical History History of colonoscopy History of left cataract surgery History of right cataract surgery History of right hip replacement History of hysterectomy History of hernia repair History of cardiac cath FOLLOWING HEART ATTACK, NO FINDINGS 1997 Social History Smoking Status: Former smoker tobacco type: cigarettes Do You Dip or Chew Tobacco: No Hx Alcohol Use: No Hx Substance Use: No substance use type: does not use Physical Exam Vital Signs Last Vital Signs Temp 36.8 C 10/04/24 11:28 Pulse 92 H 10/04/24 11:28 Resp 20 10/04/24 11:28 BP 113/79 10/04/24 11:28 Pulse Ox 96 10/04/24 11:28 O2 Del Method Room Air 10/04/24 08:02 O2 Flow Rate 2 10/04/24 11:28 Testing Laboratory Results 10/04/24 06:37 10/04/24 06:37 PT 11.1 Seconds (9.0-12.0) 10/01/24 11:39 INR 1.0 (0.9-1.1) 10/01/24 11:39 Urine Color Red 10/01/24 13:34 Urine Appearance Cloudy (Clear) A 10/01/24 13:34 Urine pH (4.5-7.5) 10/01/24 13:34 Ur Specific [place] 1.006 (1.000-1.030) 10/01/24 13:34 Urine Protein (Negative) 10/01/24 13:34 Urine Glucose (UA) (Negative) 10/01/24 13:34 Urine Ketones (Negative) 10/01/24 13:34 Urine Nitrite (Negative) 10/01/24 13:34 Ur Leukocyte Esterase (Negative) 10/01/24 13:34 Urine RBC >20 /hpf (0-2) H 10/01/24 13:34 Urine WBC 21-50 /hpf (0-5) H 10/01/24 13:34 Ur Epithelial Cells 0-2 /hpf (0-2) 10/01/24 13:34 Blood Type A Positive 10/04/24 06:47 Antibody Screen NEGATIVE 10/04/24 06:47 10/01/24 12:26 Aerobic Blood Culture - Preliminary Blood No growth in Aerobic bottle after 48 hours. Anaerobic Blood Culture - Preliminary No growth in Anaerobic bottle after 48 hours. 10/01/24 12:27 Aerobic Blood Culture - Preliminary Blood No growth in Aerobic bottle after 48 hours. Anaerobic Blood Culture - Final 10/01/24 13:34 Urine Culture - Final Urine,Indwelling Cath No growth - less than 1,000 colonies/mL. 10/01/24 13:33 Urine Culture - Final Urine,Straight Cath Enterococcus faecalis 10/04/24 10/04/24 11:21 07:15 POC Glucose 163 H 127 H Electrocardiogram Date: 10/01/24 Findings: + ST @ (107) Echocardiogram Date: 02/18/24 EF: 65-70 LV Function: normal Valvular Disease: + no significant valvular disease
[2024-10-04] MEDS ORDERED: PROPOFOL IV EMULSION 10 MG/ML 20 ML VIAL IV ONE ×3 (11:56→12:56)
[2024-10-04] MEDS ORDERED: ONDANSETRON INJ 2 MG/ML 2 ML VIAL ONE (11:56)
[2024-10-04] MEDS ORDERED: LIDOCAINE 2% 2 ML VIAL/AMP(20MG/ML) INFIL ONE (11:56)
[2024-10-04] MEDS ORDERED: fentaNYL citrate PF 100 MCG/2 ML VIAL ONE ×2 (11:57→12:49)
[2024-10-04] MEDS ORDERED: fentaNYL citrate PF 100 MCG/2 ML VIAL IV PRN (12:14)
[2024-10-04] MEDS ORDERED: ePHEDrine sulfate 50 MG/ML AMP IV PRN (12:14)
[2024-10-04] MEDS ORDERED: ATROPINE SULFATE 0.1 MG/ML 10ML SYR IV PRN (12:14)
[2024-10-04] MEDS ORDERED: ONDANSETRON INJ 2 MG/ML 2 ML VIAL IV PRN (12:14)
[2024-10-04] MEDS ORDERED: ePHEDrine sulfate 50 MG/5 ML SYR ONE (12:34)
--- NOTE | 2024-10-04 13:42 | Operative Report ---
[facility] Post Operative Report Pre & Post Diagnosis Operation Date: 10/04/24 12:00 Pre-Op Diagnosis: 1. Bladder tumor, 2. Bladder cancer, 3. Gross hematuria, 4. Obstruction of Zimmerman catheter Post-Op Diagnosis: 1. Bladder tumor, 2. Bladder cancer, 3. Gross hematuria, 4. Obstruction of Zimmerman catheter I identified the patient and participated in the time-out.: Yes Procedure Operation Date: 10/04/24 12:00 Actual Procedures p Cystoscopy with Clot Evacuation, TURBT- Large, fulguration of multiple bleeding bladder ulcers and bleeding varicosities of the bladder neck. Left Ureteral dilation, Left Retrograde Pyelogram, Left Stent Insertion, (Left) - Kade Zheng, Surgeon Kade Zheng, II, DO Weapons Engineer None Estimated Blood Loss 5 Findings Consistent with Post-Op Diagnosis Mass amount of clot within the bladder. Multiple areas of what appeared to be venous bleeding from ulceration, varicosities along the bladder neck, and areas within the previously resected tumor of the left lateral wall Additionally Multiple areas of ulceration were appreciated on the posterior wall and dome possibly fissures from overdistention from clot retention. Likely residual tumor of the left lateral wall with areas of vascular tissue with bleeding. Tumor involved the majority of the left lateral wall and left trigone with total resected area approximately 6.3 cm in size Unroofing of the left UO with significant narrowing of the distal portion of the UO. Able to place stent after dilation. Patent right UO with no signs of tumor Specimens Resection of left lateral wall Drains 22 [place] three-way catheter 4.8 [place] x 24 double-J ureteral stent on left Complications none Disposition Disposition: Recovery Room Indications Patient with bladder tumor. Patient had resection at outlying facility. Developed significant gross hematuria. Required transfusion again this morning and clot irrigation. Risks and benefits discussed at length. Description of Procedure Patient was consented and brought back to the operating room. Patient was placed under anesthesia in the supine position and moved to the dorsal lithotomy position. Patient was prepped and draped in the regular sterile fashion. A time out was completed. A 30degree Cystoscope was placed into the bladder and the entire bladder was examined. Immediately upon entering the bladder a massive amount of clot was found within the bladder. Extensive irrigation and evacuation was completed to clear the clot from the bladder. It will appear to be old with some of it turning to a brownish coloration and the majority of the being dark purple old appearing blood. After extensive evacuation, the scope was once again placed and the entire bladder was inspected. Multiple areas of ulceration were appreciated on the posterior wall and dome possibly from inflammation from the stent and fissures from overdistention from clot retention. Large irritated varicosities were noted around the bladder neck and trigone region. There was areas of bleeding coming from this. Within the previous site of resection there was areas that appear to be vascular with slow venous appearing bleeding areas within the tissue. Tissue did have irregular appearance concerning for possible residual tumor. The right UO was identified as well as the bladder neck, trigone, dome, and the other important landmarks. The resection scope with the fine bipolar loop was selected. The multiple areas of fissures and ulceration on the posterior wall was fulgurated. This controlled the majority of the slow venous bleeding that was appreciated upon entering. The large varicosities with areas of bleeding along the trigone and bladder neck were then assessed. These were also fulgurated. Over 10 different areas were fulgurated to control areas of bleeding. The largest area was on the posterior wall and was approximately 2.3 cm in size. No other lesions or tumors were discovered on full inspection of the bladder. The majority of the remaining concerning issues were within the resection bed from the previous resection of the large tumor. Did appear that there was residual tumor. The entire tumor resection bed was assessed. Utilizing the fine bipolar loop, the tumor was resected. Any irregular tissue with tumor appearance or vascular/bleeding areas were able to be resected down. The deeper tissues did appear to be possibly invaded by tumor. There was severe thickening of the deep tissue. The resection carried off along the anterior portion of the bladder resecting areas that appeared to be residual tumor not resected in the initial resection. They were continuous with the resection bed. The bulk of the tumor was removed and sent for analysis. The resection over the region in the trigone did unroofed what appeared to be possibly the UO. No urine was appreciated draining from the left side however there is a nephrostomy tube already in position. A 5 [place]e open-ended catheter was able to be placed at what appeared to be the left UO. Contrast was injected and the ureter was confirmed. There was approximately a 1.5 cm length of ureter that appeared to be irregular likely compressed externally from tumor within the bladder wall. It also appeared to be mildly strictured especially at the unroofed UO region. A wire was able to be placed. This was confirmed with fluoroscopy. The 5 [place] open-ended catheter was able to advance into the ureter and up into the renal pelvis. Once in the renal pelvis a retrograde pyelogram was completed again. This drained quickly from the nephrostomy tube but appeared to have good access point. The wire was replaced and the 5 [place]e open-ended catheter was removed. The very distal section of the ureter was dilated. The majority of the issue did appear to be likely external compression however there was what appeared to be possibly stricture within this area as well. After the dilation was complete and the wire remained in place a 4.8 [place] double-J ureteral stent was placed under direct visualization and confirmed with fluoroscopy. The coil of the stent was placed into the upper pole calyx of the kidney. Positioning was confirmed in the bladder and in the kidney on fluoroscopy. Attention was finally taken back to the bladder for final inspection. The resection bed and edges of the resection were fulgurated and the entire area inspected. All bleeding was controlled. The bladder was inspected a final time. No residual areas of bleeding. No areas of concern. Areas of fulguration did not appear to have significant injury and the areas of resection did not show signs of bladder perforation or other issue. No active bleeding was appreciated at the end of the procedure. The bladder was emptied. The scope was removed. A 22 [place]e three-way catheter was then placed. This was connected to continuous bladder irrigation on a very slow drip. The urine remained clear The patient was cleaned, aroused from anesthesia, and transferred to the pacu in stable condition having tolerated the procedure well with no complications. I was present and participated in all aspects of the procedure. The patient will be monitored in the PACU until transferred. Plan to monitor while inpatient. Will have recheck the labs later today after transfusion. I attest to the content of the Intraoperative Record and any orders documented therein. Any exceptions are noted below.
--- NOTE | 2024-10-04 14:11 | Anesthesiology Progress Note ---
Date of Service October 04, 2024 Anesthesia Post Procedure Vital Signs Vital Signs: Temp Pulse Pulse Resp BP BP Pulse Ox 10/04/24 13:50 36.5 C 97 H 16 117/87 95 10/04/24 13:50 36.5 C 97 H 16 117/87 95 10/04/24 13:40 96 H 18 147/88 H 100 10/04/24 13:32 36.1 C L 96 H 14 141/80 H 100 10/04/24 11:53 36.8 C 89 18 107/72 96 10/04/24 11:28 36.8 C 92 H 20 113/79 96 10/04/24 11:12 36.8 C 92 H 18 107/71 94 10/04/24 10:55 36.9 C 97 H 20 113/72 91 10/04/24 08:02 37.0 C 86 16 114/72 91 10/04/24 07:30 36.6 C 90 18 125/65 97 10/04/24 07:00 10/04/24 03:09 36.7 C 89 16 120/60 98 10/03/24 22:55 36.8 C 85 19 92/50 L 97 10/03/24 21:41 85 10/03/24 20:30 10/03/24 19:05 36.4 C L 81 16 138/82 95 10/03/24 16:12 75 10/03/24 16:00 36.8 C 74 18 142/69 H 96 O2 Del Method O2 Flow Rate 10/04/24 13:50 10/04/24 13:50 Room Air 10/04/24 13:40 Room Air 10/04/24 13:32 Oxymask 6 10/04/24 11:53 2 10/04/24 11:28 2 10/04/24 11:12 2 10/04/24 10:55 2 10/04/24 08:02 Room Air 10/04/24 07:30 Oxymask 4 10/04/24 07:00 Room Air 10/04/24 03:09 Oxymask 4 10/03/24 22:55 Nasal Cannula 4 10/03/24 21:41 10/03/24 20:30 Room Air 10/03/24 19:05 Nasal Cannula 4 10/03/24 16:12 10/03/24 16:00 Oxymask 4 Pain Intensity Left Lower Back: Pain Intensity: 3 Transfer of Care Handoff Completed per policy Notes Mental Status: alert / awake / arousable Patient Amnestic to Procedure: Yes Nausea / Vomiting: adequately controlled Pain: adequately controlled Airway Patency, RR, SpO2: stable & adequate BP & HR: stable & adequate Hydration State: stable & adequate Anesthetic Complications: no major complications apparent and Pt Satisfied with anesthetic care
[2024-10-04] MEDS: DIATRIZOATE MEGLUMINE 30% 100ML VIAL INSTIL ONE (15:02)
--- NOTE | 2024-10-04 15:04 | Hospitalist Progress Note ---
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 Pt underwent resection/debulking of bladder tumor on 09/16, developed hematuria about four days ago, had Zimmerman replaced two days ago due to urinary retention. Diagnosed with UTI in the ED on 09/27, started on cefpodoxime but this was changed to ciprofloxacin two days ago based on urine culture results. She presented to the ED today with new weakness, fatigue, and syncopal event - found to have acute blood loss anemia in the setting of hematuria with almost 4 g drop in hemoglobin. Pt was referred for admission for further management of hematuria and anemia. Acute blood loss anemia Gross hematuria - suspect related to recent procedure Bladder cancer s/p recent resection/debulking Complicated UTI Nephrostomy related UTI causing gross hematuria --CT ABD: Large area of hyperattenuating tissue has developed within the urinary bladder since the prior study. This is consistent with a large blood clot from the patient's known bladder cancer. --S/P 2 units PRBCs --S/P cystoscopy with clot evacuation, TURBT--large fulguration of multiple bleeding bladder ulcers and bleeding varicosities of the bladder neck. Left ureteral dilatation, retrograde pyelogram with left stent placement on 10/04/24 by --Aspirin on hold --Urine culture: Grew Enterococcus faecalis --Blood cultures negative to date --Empirically on Levaquin, daptomycin>> transition to ampicillin Day # 2 Continues bladder irrigation as per urology Appreciate urology input Monitor H&H and transfuse as needed Patient has follow-up with medical oncology scheduled for next week as outpatient Hemoglobin 7.2 today Given ongoing hematuria with low hemoglobin, plan to transfuse 1 unit PRBC today Constipation Continue bowel regimen Minimize opiates as able And Dulcolax + Flatus, no BM today Hypomagnesemia Replete and monitor Diabetes mellitus - type 2 Continue insulin per protocol Monitor blood glucose levels Acute on chronic hyponatremia Sodium levels improved Continue salt tablets Monitor sodium: 136 today Lower back pain Sclerotic bone lesion involving L2 vertebra noted on CT Likely metastatic disease from bladder cancer Possible plan for radiation therapy as outpatient per family Monitor Hypertension - Chronic, continue home meds Monitor BP Hypothyroid - Chronic, continue levothyroxine Anxiety - Continue outpatient meds ADRI Nocturnal hypoxia Continue supplemental oxygen and CPAP at bedtime Pulmonary nodules Incidental finding on CT Will recommend to get repeat CT in 3 to 6 months for further evaluation Morbid obesity BMI 43 DVT Px: SCDs re: Hematuria Admission and Anticipated Discharge Date Admission Date: October 01, 2024 Subjective Patient is seen and examined at bedside States having significant hematuria overnight Also reports back pain. Also reports having bladder/abdominal discomfort Denies any chest pain, dyspnea, abdominal pain Plan for TURBT today Review of Systems Review of Systems: All systems reviewed & are unremarkable except as noted in Subjective Physical Exam Physical Exam: Physical Exam: Vitals signs as noted above General Appearance:Obese, no apparent distress Head: normocephalic, Atraumatic Eyes: normal inspection, EOMI Neck: supple, Trachea midline Respiratory/Chest: Normal breath sounds, CTA, No accessory muscle use Cardiovascular: S1, S2, No murmur Abdomen/GI:Soft, Non tender, Bowel sounds present,+ left nephrostomy tube Extremities/Musculoskeletal:normal inspection, 1+ edema Neurologic/Psych:AAOX3, grossly no focal neurological deficits Skin: normal color, warm Results & Data Results & Data Vital Signs (Past 12 Hours) Vital Signs Temp Pulse Pulse Resp BP BP Pulse Ox 10/04/24 14:15 36.5 C 97 H 18 142/84 H 98 10/04/24 13:50 36.5 C 97 H 16 117/87 95 10/04/24 13:50 36.5 C 97 H 16 117/87 95 10/04/24 13:40 96 H 18 147/88 H 100 10/04/24 13:32 36.1 C L 96 H 14 141/80 H 100 10/04/24 11:53 36.8 C 89 18 107/72 96 10/04/24 11:28 36.8 C 92 H 20 113/79 96 10/04/24 11:12 36.8 C 92 H 18 107/71 94 10/04/24 10:55 36.9 C 97 H 20 113/72 91 10/04/24 08:02 37.0 C 86 16 114/72 91 10/04/24 07:30 36.6 C 90 18 125/65 97 10/04/24 07:00 10/04/24 03:09 36.7 C 89 16 120/60 98 O2 Del Method O2 Flow Rate 10/04/24 14:15 Nasal Cannula 2 10/04/24 13:50 10/04/24 13:50 Room Air 10/04/24 13:40 Room Air 10/04/24 13:32 Oxymask 6 10/04/24 11:53 2 10/04/24 11:28 2 10/04/24 11:12 2 10/04/24 10:55 2 10/04/24 08:02 Room Air 10/04/24 07:30 Oxymask 4 10/04/24 07:00 Room Air 10/04/24 03:09 Oxymask 4 Laboratory Results Short CBC 10/04/24 Range/Units 06:37 WBC 7.24 (4.8-10.8) K/ul Hgb 7.2 L (12.0-16.0) g/dl Hct 21.8 L (37.0-47.0) % Plt Count 219 (130-400) K/uL BMP 10/04/24 06:37 Sodium 136 Potassium 4.4 Chloride 102 Carbon Dioxide 31 BUN 16 Creatinine 1.62 H Glucose 114 H Calcium 8.2 L (3) Bladder cancer Bladder location: lateral wall Qualified Code(s): C67.2 - Malignant neoplasm of lateral wall of bladder (4) CKD (chronic kidney disease), stage III Chronic kidney disease stage 3 subtype: unspecified whether 3a or 3b Qualified Code(s): N18.30 - Chronic kidney disease, stage 3 unspecified (5) Diabetes mellitus, type II Diabetes mellitus long term care social worker insulin use: without group home use Diabetes mellitus complication status: with other specified complication Qualified Code(s): E11.69 - Type 2 diabetes mellitus with other specified complication (6) COPD (chronic obstructive pulmonary disease) COPD type: unspecified COPD Qualified Code(s): J44.9 - Chronic obstructive pulmonary disease, unspecified
[2024-10-04 15:18] LABS: Hematocrit (blood only) 26.8 % (37.0-47.0); Hemoglobin 8.8 g/dl (12.0-16.0)
[2024-10-04] MEDS: SENNA 8.6 MG TAB PO SCH (20:27)
[2024-10-05 07:52] LABS: Hematocrit (blood only) 25.1 % (37.0-47.0); Hemoglobin 8.3 g/dl (12.0-16.0)
--- NOTE | 2024-10-05 08:09 | Fluoroscopy Report ---
FL retrograde includes kub CLINICAL HISTORY: RETROGRADE COMPARISON STUDY: None FLUOROSCOPY TIME: 81 seconds FLUOROSCOPY IMAGES: 3 EXPOSURE DOSE: 37 mGy FINDINGS: Fluoroscopy was provided for urologic procedure. IMPRESSION: Intraoperative fluoroscopy. ACT 112: Negative or not required by law. Electronically signed by: Isma Shields M.D. 10/05/2024 8:08 AM
[2024-10-05 08:13] LABS: BUN Creatinine Ratio 8.4 (10-20); Calcium 8.5 mg/dl (8.6-10.3); Creatinine Clr Calc Pharmacy 31.4 ml/min; Potassium 4.6 mmol/L (3.5-5.1)
--- NOTE | 2024-10-05 09:12 | Urology Progress Note ---
Date of Service October 05, 2024 Assessment & Plan (1) Bladder cancer: (2) Gross hematuria: (3) Nephrostomy present: Plan: 73-year-old female with history of bladder cancer status post TURBT (09/16/24) and left nephrostomy tube placement at [facility] who was admitted for hematuria and clot retention. POD #1 s/p Cystoscopy with Clot Evacuation, TURBT- Large, fulguration of multiple bleeding bladder ulcers and bleeding varicosities of the bladder neck. Left Ureteral dilation, Left Retrograde Pyelogram, Left Stent Insertion Afebrile, hemodynamically stable Labs reviewedcreatinine 1.66, WBC 7.24, hemoglobin 8.3 Zimmerman draining clear yellow CBI on slow Continue to wean CBI as appropriate CBI clamped during exam this am, will reassess throughout the day Nursing can manually irrigate catheter if it becomes obstructed Possible voiding trial prior to discharge Continue supportive care and medical management will follow Admission and Anticipated Discharge Date Admission Date: October 01, 2024 Subjective Patient seen and examined at bedside this morning. No acute issues overnight. Zimmerman patent and draining clear urine with CBI on slow. CBI clamped at time of exam. Denies fever or chills. Review of Systems Constitutional: as per Subjective / HPI Genitourinary: as per Subjective / HPI Physical Exam Constitutional: + obese; no acute distress Respiratory: no respiratory distress and no labored breathing Musculoskeletal: Head/Neck/Chest: normocephalic Neurologic: moves all extremities and awake Psychiatric: Orientation: alert, oriented x 3 and cooperative Genitourinary: Zimmerman patent and draining clear urine with CBI on slow. CBI clamped at bedside. Results & Data Vital Signs (Past 12 Hours) Vital Signs Temp Pulse Pulse Resp BP Pulse Ox O2 Del Method 10/05/24 07:16 36.6 C 87 19 113/58 L 97 Nasal Cannula 10/05/24 04:00 36.7 C 86 16 144/89 H 98 Nasal Cannula 10/04/24 23:31 36.6 C 86 20 112/73 96 Nasal Cannula 10/04/24 21:43 84 O2 Flow Rate 10/05/24 07:16 2 10/05/24 04:00 2 10/04/24 23:31 10/04/24 21:43 PG Care Time/CCT Total # of Minutes Spent Total Time Spent with Patient: Total time spent is greater than 50% in coordination of care (as documented) at patient's floor/unit and/or counseling patient: Coding Level of Care Code 43261 SUB INP/OBS CARE 235MIN Diagnoses Bladder cancer C67.9 Bladder location: unspecified site Gross hematuria R31.0 Nephrostomy present Z93.6 (1) Bladder cancer Bladder location: unspecified site Qualified Code(s): C67.9 - Malignant neoplasm of bladder, unspecified
--- NOTE | 2024-10-05 12:09 | XRay Report ---
KUB HISTORY: constipation COMPARISON STUDY: 04/08/2011 FINDINGS: There are interval left nephrostomy tube and left ureteral stent. There is moderate retaine d stool. No bowel obstruction seen. No gross free air. Stable low pelvic phleboliths. There are bilat eral hip prostheses. IMPRESSION: Moderate retained stool. ACT 112: Negative or not required by law. The above report was generated using voice recognition software. It may contain grammatical, syntax o r spelling errors. Electronically signed by: Isma Shields M.D. 10/05/2024 12:08 PM
[2024-10-05] MEDS ORDERED: bisacodyL 10 MG SUPP PR PRN (12:36)
[2024-10-05] MEDS: POLYETHYLENE (MIRALAX) 17 GM PACK PO SCH (12:42)
[2024-10-05] MEDS: SENNA 8.6 MG TAB PO SCH (12:42)
[2024-10-05] MEDS: AMPICILLIN 2,000 MG in SODIUM CHLOR 0.9% MINI-B 100 ML IV SCH (15:27)
--- NOTE | 2024-10-05 15:56 | Hospitalist Progress Note ---
Date of Service October 05, 2024 Assessment & Plan (1) Acute blood loss anemia: (2) Gross hematuria: (3) Bladder cancer: (4) CKD (chronic kidney disease), stage III: (5) Diabetes mellitus, type II: (6) COPD (chronic obstructive pulmonary disease): (7) Dyslipidemia: Plan Patient is a 73 y/o female with bladder cancer metastatic to lumbar spine, DM2, COPD, CKD3, PLMD, CAD w/ prior [place], nocturnal hypoxemia, hypothyroidism, HTN, anxiety, and other history as outlined below who presented to the ED today with syncope and hypotension in the setting of gross hematuria. Pt underwent resection/debulking of bladder tumor on 09/16, developed hematuria about four days ago, had Zimmerman replaced two days ago due to urinary retention. Diagnosed with UTI in the ED on 09/27, started on cefpodoxime but this was changed to ciprofloxacin two days ago based on urine culture results. She presented to the ED today with new weakness, fatigue, and syncopal event - found to have acute blood loss anemia in the setting of hematuria with almost 4 g drop in hemoglobin. Pt was referred for admission for further management of hematuria and anemia. Acute blood loss anemia Gross hematuria - suspect related to recent procedure Bladder cancer s/p recent resection/debulking Complicated UTI Nephrostomy related UTI causing gross hematuria --CT ABD: Large area of hyperattenuating tissue has developed within the urinary bladder since the prior study. This is consistent with a large blood clot from the patient's known bladder cancer. --S/P 3 units PRBCs --S/P cystoscopy with clot evacuation, TURBT--large fulguration of multiple bleeding bladder ulcers and bleeding varicosities of the bladder neck. Left ureteral dilatation, retrograde pyelogram with left stent placement on 10/04/24 by --Aspirin on hold --Urine culture: Grew Enterococcus faecalis --Blood cultures negative to date --Empirically on Levaquin, daptomycin>> transition to ampicillin Day # 3 Continuous bladder irrigation on hold Appreciate urology input Monitor H&H and transfuse as needed Patient has follow-up with medical oncology scheduled as outpatient Plan for voiding trial prior to discharge Hemoglobin 8.3 today No hematuria today Constipation --KUB:Moderate retained stool. Continue bowel regimen Minimize opiates as able Encouraged to ambulate Hypomagnesemia Replete and monitor Diabetes mellitus - type 2 Continue insulin per protocol Monitor blood glucose levels Acute on chronic hyponatremia Sodium levels improved Continue salt tablets Sodium levels improved Lower back pain Sclerotic bone lesion involving L2 vertebra noted on CT Likely metastatic disease from bladder cancer Possible plan for radiation therapy as outpatient per family Monitor Hypertension - Chronic, continue home meds Monitor BP Hypothyroid - Chronic, continue levothyroxine Anxiety - Continue outpatient meds ADRI Nocturnal hypoxia Continue supplemental oxygen and CPAP at bedtime Pulmonary nodules Incidental finding on CT Will recommend to get repeat CT in 3 to 6 months for further evaluation Morbid obesity BMI 43 DVT Px: SCDs re: Hematuria Admission and Anticipated Discharge Date Admission Date: October 01, 2024 Subjective Patient is seen and examined at bedside States feeling tired today Also reports some abdominal discomfort and constipated Denies any nausea, vomiting, chest pain, dyspnea Hematuria seems to be resolved Review of Systems Review of Systems: All systems reviewed & are unremarkable except as noted in Subjective Physical Exam Physical Exam: Physical Exam: Vitals signs as noted above General Appearance:Obese, no apparent distress Head: normocephalic, Atraumatic Eyes: normal inspection, EOMI Neck: supple, Trachea midline Respiratory/Chest: Normal breath sounds, CTA, No accessory muscle use Cardiovascular: S1, S2, No murmur Abdomen/GI:Soft, Non tender, Bowel sounds present,+ left nephrostomy tube Extremities/Musculoskeletal:normal inspection, 1+ edema Neurologic/Psych:AAOX3, grossly no focal neurological deficits Skin: normal color, warm Results & Data Results & Data Vital Signs (Past 12 Hours) Vital Signs Temp Pulse Pulse Resp BP Pulse Ox O2 Del Method 10/05/24 15:20 36.6 C 82 19 130/82 99 Nasal Cannula 10/05/24 14:57 84 10/05/24 10:47 36.7 C 62 19 99/54 L 92 Nasal Cannula 10/05/24 08:00 82 10/05/24 07:16 36.6 C 87 19 113/58 L 97 Nasal Cannula 10/05/24 04:00 36.7 C 86 16 144/89 H 98 Nasal Cannula O2 Flow Rate 10/05/24 15:20 2 10/05/24 14:57 10/05/24 10:47 10/05/24 08:00 10/05/24 07:16 2 10/05/24 04:00 2 Laboratory Results Short CBC 10/05/24 Range/Units 07:32 Hgb 8.3 L (12.0-16.0) g/dl Hct 25.1 L (37.0-47.0) % BMP 10/05/24 07:32 Sodium 136 Potassium 4.6 Chloride 100 Carbon Dioxide 31 BUN 14 Creatinine 1.66 H Glucose 109 H Calcium 8.5 L (3) Bladder cancer Bladder location: lateral wall Qualified Code(s): C67.2 - Malignant neoplasm of lateral wall of bladder (4) CKD (chronic kidney disease), stage III Chronic kidney disease stage 3 subtype: unspecified whether 3a or 3b Qualified Code(s): N18.30 - Chronic kidney disease, stage 3 unspecified (5) Diabetes mellitus, type II Diabetes mellitus fdc insulin use: without fdc use Diabetes me llitus complication status: with other specified complication Qualified Code(s): E11.69 - Type 2 diabetes mellitus with other specified complication (6) COPD (chronic obstructive pulmonary disease) COPD type: unspecified COPD Qualified Code(s): J44.9 - Chronic obstructive pulmonary disease, unspecified
[2024-10-06] MEDS: BENZONATATE 100 MG CAPSULE PO ONE (00:16)
[2024-10-06] MEDS: BENZONATATE 100 MG CAPSULE PO PRN (00:37)
[2024-10-06 07:48] LABS: Hematocrit (blood only) 24.9 % (37.0-47.0); Hemoglobin 8.2 g/dl (12.0-16.0); Mean Corpuscular Hemoglobin 29.3 pg (25.0-34.0); Mean Corpuscular Hgb Conc 32.9 g/dL (32.0-36.0); Mean Corpuscular Volume 88.9 fL (80.0-100.0); Mean Platelet Volume 10.2 fL (9.4-12.4); Platelet Count 233 K/uL (130-400); RDW Coefficient of Variation 13.6 % (11.5-14.5); RDW Standard Deviation 44.8 fL (36.4-46.3); White Blood Count 6.57 K/ul (4.8-10.8)
[2024-10-06 08:11] LABS: BUN Creatinine Ratio 10.1 (10-20); Calcium 8.4 mg/dl (8.6-10.3); Potassium 4.2 mmol/L (3.5-5.1)
--- NOTE | 2024-10-06 08:27 | Urology Progress Note ---
Date of Service October 06, 2024 Assessment & Plan (1) Bladder cancer: (2) Gross hematuria: (3) Nephrostomy present: Plan: 73-year-old female with history of bladder cancer status post TURBT (09/16/24) and left nephrostomy tube placement at [facility] who was admitted for hematuria and clot retention. POD #2 s/p Cystoscopy with Clot Evacuation, TURBT- Large, fulguration of multiple bleeding bladder ulcers and bleeding varicosities of the bladder neck. Left Ureteral dilation, Left Retrograde Pyelogram, Left Stent Insertion Afebrile, hemodynamically stable Labs reviewedcreatinine 1.68, WBC 6.57, hemoglobin 8.2 Urine culture with Enterococcus--continue with course of antibiotics CBI clamped yesterday, no manual irrigation required overnight Zimmerman draining clear yellow this am Plan for voiding trial this morning, monitor for void and bladder scan prn If unable to void, then replace catheter and f/u for voiding trial outpatient Continue supportive care and medical management per hospital medicine service Patient can be discharged from standpoint after voiding and when medically stable Will arrange outpatient f/u with our service Admission and Anticipated Discharge Date Admission Date: October 01, 2024 Subjective Patient seen and examined at bedside this morning. She is awake and resting in bed, eating breakfast. No acute issues overnight. CBI was clamped yesterday. No manual irrigation required overnight. Reports occasional bladder spasms. Denies fever or chills. Review of Systems Constitutional: as per Subjective / HPI Genitourinary: as per Subjective / HPI Physical Exam Constitutional: + obese; no acute distress Respiratory: no respiratory distress and no labored breathing Musculoskeletal: Head/Neck/Chest: normocephalic Neurologic: moves all extremities and awake Psychiatric: Orientation: alert, oriented x 3 and cooperative Genitourinary: Zimmerman patent and draining clear yellow urine Results & Data Vital Signs (Past 12 Hours) Vital Signs Temp Pulse Pulse Resp BP Pulse Ox O2 Del Method 10/06/24 07:00 36.9 C 84 16 132/84 96 Nasal Cannula 10/06/24 02:38 36.6 C 76 18 117/73 96 Nasal Cannula 10/05/24 22:44 36.5 C 82 18 112/72 97 Nasal Cannula 10/05/24 22:05 Nasal Cannula 10/05/24 21:52 78 O2 Flow Rate 10/06/24 07:00 2 10/06/24 02:38 10/05/24 22:44 10/05/24 22:05 2 10/05/24 21:52 PG Care Time/CCT Total # of Minutes Spent Total Time Spent with Patient: Total time spent is greater than 50% in coordination of care (as documented) at patient's floor/unit and/or counseling patient: Coding Level of Care Code 52844 SUB INP/OBS CARE 2/35MIN Diagnoses Bladder cancer C67.9 Bladder location: unspecified site Gross hematuria R31.0 Nephrostomy present Z93.6 (1) Bladder cancer Bladder location: unspecified site Qualified Code(s): C67.9 - Malignant neoplasm of bladder, unspecified
--- NOTE | 2024-10-06 15:34 | Hospitalist Progress Note ---
Date of Service October 06, 2024 Assessment & Plan (1) Acute blood loss anemia: (2) Gross hematuria: (3) Bladder cancer: (4) CKD (chronic kidney disease), stage III: (5) Diabetes mellitus, type II: (6) COPD (chronic obstructive pulmonary disease): (7) Dyslipidemia: Plan Patient is a 73 y/o female with bladder cancer metastatic to lumbar spine, DM2, COPD, CKD3, PLMD, CAD w/ prior [place], nocturnal hypoxemia, hypothyroidism, HTN, anxiety, and other history as outlined below who presented to the ED today with syncope and hypotension in the setting of gross hematuria. Pt underwent resection/debulking of bladder tumor on 09/16, developed hematuria about four days ago, had Zimmerman replaced two days ago due to urinary retention. Diagnosed with UTI in the ED on 09/27, started on cefpodoxime but this was changed to ciprofloxacin two days ago based on urine culture results. She presented to the ED today with new weakness, fatigue, and syncopal event - found to have acute blood loss anemia in the setting of hematuria with almost 4 g drop in hemoglobin. Pt was referred for admission for further management of hematuria and anemia. Acute blood loss anemia Gross hematuria - suspect related to recent procedure Bladder cancer s/p recent resection/debulking Complicated UTI Nephrostomy related UTI causing gross hematuria --CT ABD: Large area of hyperattenuating tissue has developed within the urinary bladder since the prior study. This is consistent with a large blood clot from the patient's known bladder cancer. --S/P 3 units PRBCs --S/P cystoscopy with clot evacuation, TURBT--large fulguration of multiple bleeding bladder ulcers and bleeding varicosities of the bladder neck. Left ureteral dilatation, retrograde pyelogram with left stent placement on 10/04/24 by --Aspirin on hold --Urine culture: Grew Enterococcus faecalis --Blood cultures negative e --Empirically on Levaquin, daptomycin>> transition to ampicillin Day # 4 Continuous bladder irrigation was discontinued Appreciate urology input Monitor H&H and transfuse as needed Patient has follow-up with medical oncology scheduled as outpatient Plan for voiding trial prior to discharge Hemoglobin 8.2 today Needs follow-up with oncology on discharge Plan for voiding trial today Also needs follow-up with urology on discharge Likely discharge tomorrow if stable Constipation --KUB:Moderate retained stool. Continue bowel regimen Minimize opiates as able Encouraged to ambulate Resolved Monitor Hypomagnesemia Replete and monitor Diabetes mellitus - type 2 Continue insulin per protocol Monitor blood glucose levels Acute on chronic hyponatremia Sodium levels improved Continue salt tablets Sodium levels improved Lower back pain Sclerotic bone lesion involving L2 vertebra noted on CT Likely metastatic disease from bladder cancer Possible plan for radiation therapy as outpatient per family Monitor PT OT prior to discharge Hypertension - Chronic, continue home meds Monitor BP Hypothyroid - Chronic, continue levothyroxine Anxiety - Continue outpatient meds ADRI Nocturnal hypoxia Continue supplemental oxygen and CPAP at bedtime Pulmonary nodules Incidental finding on CT Will recommend to get repeat CT in 3 to 6 months for further evaluation Morbid obesity BMI 43 DVT Px: SCDs re: Hematuria Disposition Likely discharge tomorrow Admission and Anticipated Discharge Date Admission Date: October 01, 2024 Subjective Patient is seen and examined at bedside No recurrence of hematuria Had large bowel movement today Feels well today Denies any chest pain, dyspnea, nausea, vomiting, abdominal pain Review of Systems Review of Systems: All systems reviewed & are unremarkable except as noted in Subjective Physical Exam Physical Exam: Physical Exam: Vitals signs as noted above General Appearance:Obese, no apparent distress Head: normocephalic, Atraumatic Eyes: normal inspection, EOMI Neck: supple, Trachea midline Respiratory/Chest: Normal breath sounds, CTA, No accessory muscle use Cardiovascular: S1, S2, No murmur Abdomen/GI:Soft, Non tender, Bowel sounds present,+ left nephrostomy tube Extremities/Musculoskeletal:normal inspection, 1+ edema Neurologic/Psych:AAOX3, grossly no focal neurological deficits Skin: normal color, warm Results & Data Results & Data Vital Signs (Past 12 Hours) Vital Signs Temp Pulse Pulse Resp BP Pulse Ox O2 Del Method 10/06/24 10:52 36.8 C 83 16 108/71 91 Room Air 10/06/24 08:00 82 10/06/24 08:00 Nasal Cannula, CPAP 10/06/24 07:00 36.9 C 84 16 132/84 96 Nasal Cannula O2 Flow Rate 10/06/24 10:52 10/06/24 08:00 10/06/24 08:00 2 10/06/24 07:00 2 Laboratory Results Short CBC 10/06/24 Range/Units 06:50 WBC 6.57 (4.8-10.8) K/ul Hgb 8.2 L (12.0-16.0) g/dl Hct 24.9 L (37.0-47.0) % Plt Count 233 (130-400) K/uL [facility] 10/06/24 06:50 Sodium 138 Potassium 4.2 Chloride 101 Carbon Dioxide 33 H BUN 17 Creatinine 1.68 H Glucose 96 Calcium 8.4 L (3) Bladder cancer Bladder location: lateral wall Qualified Code(s): C67.2 - Malignant neoplasm of lateral wall of bladder (4) CKD (chronic kidney disease), stage III Chronic kidney disease stage 3 subtype: unspecified whether 3a or 3b Qualified Code(s): N18.30 - Chronic kidney disease, stage 3 unspecified (5) Diabetes mellitus, type II Diabetes mellitus senior care insulin use: without senior care use Diabetes mellitus complication status: with other specified complication Qualified Code(s): E11.69 - Type 2 diabetes mellitus with other specified complication (6) COPD (chronic obstructive pulmonary disease) COPD type: unspecified COPD Qualified Code(s): J44.9 - Chronic obstructive pulmonary disease, unspecified
[2024-10-07 06:55] LABS: BUN Creatinine Ratio 9.5 (10-20); Calcium 8.4 mg/dl (8.6-10.3); Creatinine Clr Calc Pharmacy 29.1 ml/min
[2024-10-07 07:23] VITALS: BP 125/80; RESP 16; TEMP 97.5
[2024-10-07] MEDS: POLYETHYLENE (MIRALAX) 17 GM PACK PO SCH (08:28)
[2024-10-07] MEDS: ATORVASTATIN 10 MG TAB PO SCH (08:49)
--- NOTE | 2024-10-07 09:58 | Urology Progress Note ---
Date of Service October 07, 2024 Assessment & Plan (1) Bladder cancer: (2) Gross hematuria: (3) Nephrostomy present: Plan: 73-year-old female with history of bladder cancer status post TURBT (09/16/24) and left nephrostomy tube placement at [facility] who was admitted for hematuria and clot retention. POD #3 s/p Cystoscopy with Clot Evacuation, TURBT- Large, fulguration of multiple bleeding bladder ulcers and bleeding varicosities of the bladder neck. Left Ureteral dilation, Left Retrograde Pyelogram, Left Stent Insertion Afebrile, hemodynamically stable Labs reviewedcreatinine 1.79 Urine culture with Enterococcus--continue with course of antibiotics Zimmerman removed yesterday for voiding trial Voiding since catheter removal, purewick in place, urine remains clear Continue supportive care and medical management per hospital medicine service Patient can be discharged from standpoint when medically stable Will arrange outpatient f/u with our service will sign off, please contact our service with any additional questions or concerns Admission and Anticipated Discharge Date Admission Date: October 01, 2024 Subjective Patient seen and examined at bedside this morning. No acute issues overnight. Zimmerman catheter was removed yesterday. She has been voiding without difficulty, pure wick in place. Urine remains yellow. Denies pain at present. No fever or chills. Review of Systems Constitutional: as per Subjective / HPI Genitourinary: as per Subjective / HPI Physical Exam Constitutional: + obese; no acute distress Respiratory: no respiratory distress and no labored breathing Musculoskeletal: Head/Neck/Chest: normocephalic Neurologic: moves all extremities and awake Psychiatric: Orientation: alert, oriented x 3 and cooperative Genitourinary: Urine in purewick yellow; nephrostomy tube intact Results & Data Vital Signs (Past 12 Hours) Vital Signs Temp Pulse Resp BP Pulse Ox O2 Del Method O2 Flow Rate 10/07/24 07:24 Nasal Cannula 2 10/07/24 07:20 36.4 C L 84 16 125/80 97 Nasal Cannula 2 PG Care Time/CCT Total # of Minutes Spent Total Time Spent with Patient: Total time spent is greater than 50% in coordination of care (as documented) at patient's floor/unit and/or counseling patient: Coding Level of Care Code 39021 SUB INP/OBS CARE 2/35MIN Diagnoses Bladder cancer C67.9 Bladder location: unspecified site Gross hematuria R31.0 Nephrostomy present Z93.6 (1) Bladder cancer Bladder location: unspecified site Qualified Code(s): C67.9 - Malignant neoplasm of bladder, unspecified
--- NOTE | 2024-10-07 12:31 | Hospitalist Progress Note ---
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 Pt underwent resection/debulking of bladder tumor on 09/16, developed hematuria about four days ago, had Zimmerman replaced two days ago due to urinary retention. Diagnosed with UTI in the ED on 09/27, started on cefpodoxime but this was changed to ciprofloxacin two days ago based on urine culture results. She presented to the ED today with new weakness, fatigue, and syncopal event - found to have acute blood loss anemia in the setting of hematuria with almost 4 g drop in hemoglobin. Pt was referred for admission for further management of hematuria and anemia. Acute blood loss anemia Gross hematuria - suspect related to recent procedure Bladder cancer s/p recent resection/debulking Complicated UTI Nephrostomy related UTI causing gross hematuria --CT ABD: Large area of hyperattenuating tissue has developed within the urinary bladder since the prior study. This is consistent with a large blood clot from the patient's known bladder cancer. --S/P 3 units PRBCs --S/P cystoscopy with clot evacuation, TURBT--large fulguration of multiple bleeding bladder ulcers and bleeding varicosities of the bladder neck. Left ureteral dilatation, retrograde pyelogram with left stent placement on 10/04/24 by --Aspirin on hold --Urine culture: Grew Enterococcus faecalis --Blood cultures negative --Empirically on Levaquin, daptomycin>> transition to ampicillin Day # 5 Continuous bladder irrigation was discontinued Appreciate urology input Monitor H&H and transfuse as needed Patient has follow-up with medical oncology scheduled as outpatient Successful voiding trial after catheter removal Hemoglobin 8.2 today Needs follow-up with oncology on discharge Plan to discharge home today Advised to follow-up with urology on discharge Plan to transition to oral antibiotics to complete the course Constipation --KUB:Moderate retained stool. Continue bowel regimen Minimize opiates as able Encouraged to ambulate Resolved Monitor Hypomagnesemia Replete and monitor Diabetes mellitus - type 2 Continue insulin per protocol Monitor blood glucose levels Acute on chronic hyponatremia Sodium levels improved Continue salt tablets Sodium levels improved Lower back pain Sclerotic bone lesion involving L2 vertebra noted on CT Likely metastatic disease from bladder cancer Possible plan for radiation therapy as outpatient per family Monitor Not interested in rehab placement Hypertension - Chronic, continue home meds Monitor BP Hypothyroid - Chronic, continue levothyroxine Anxiety - Continue outpatient meds ADRI Nocturnal hypoxia Continue supplemental oxygen and CPAP at bedtime Pulmonary nodules Incidental finding on CT Will recommend to get repeat CT in 3 to 6 months for further evaluation Morbid obesity BMI 43 DVT Px: SCDs re: Hematuria Disposition Home with home health today Admission and Anticipated Discharge Date Admission Date: October 01, 2024 Subjective Patient is seen and examined at bedside Doing well today Voiding without issues after catheter removal No recurrence of hematuria Denies any chest pain, dyspnea, nausea, vomiting, abdominal pain Prefers to be discharged home today Review of Systems Review of Systems: All systems reviewed & are unremarkable except as noted in Subjective Physical Exam Physical Exam: Physical Exam: Vitals signs as noted above General Appearance:Obese, no apparent distress Head: normocephalic, Atraumatic Eyes: normal inspection, EOMI Neck: supple, Trachea midline Respiratory/Chest: Normal breath sounds, CTA, No accessory muscle use Cardiovascular: S1, S2, No murmur Abdomen/GI:Soft, Non tender, Bowel sounds present,+ left nephrostomy tube Extremities/Musculoskeletal:normal inspection, 1+ edema Neurologic/Psych:AAOX3, grossly no focal neurological deficits Skin: normal color, warm Results & Data Results & Data Vital Signs (Past 12 Hours) Vital Signs Temp Pulse Resp BP Pulse Ox O2 Del Method O2 Flow Rate 10/07/24 07:24 Nasal Cannula 2 10/07/24 07:20 36.4 C L 84 16 125/80 97 Nasal Cannula 2 Laboratory Results BMP 10/07/24 05:32 Sodium 138 Potassium 4.0 Chloride 101 Carbon Dioxide 32 BUN 17 Creatinine 1.79 H Glucose 108 H Calcium 8.4 L (3) Bladder cancer Bladder location: lateral wall Qualified Code(s): C67.2 - Malignant neoplasm of lateral wall of bladder (4) CKD (chronic kidney disease), stage III Chronic kidney disease stage 3 subtype: unspecified whether 3a or 3b Qualified Code(s): N18.30 - Chronic kidney disease, stage 3 unspecified (5) Diabetes mellitus, type II Diabetes mellitus complication status: with other specified complication Diabetes mellitus residential insulin use: without buyer broker use Qualified Code(s): E11.69 - Type 2 diabetes mellitus with other specified complication (6) COPD (chronic obstructive pulmonary disease) COPD type: unspecified COPD Qualified Code(s): J44.9 - Chronic obstructive pulmonary disease, unspecified
[2024-10-07 13:08] VITALS: PULSE 83; O2SAT 95
--- NOTE | 2024-10-07 13:08 | Discharge Summary ---
Date of Service October 07, 2024 Admission HPI Per Admitting Provider This is a 73 y/o female with bladder cancer metastatic to lumbar spine, DM2, COPD, CKD3, PLMD, CAD w/ prior AR, nocturnal hypoxemia, hypothyroidism, HTN, anxiety, and other history as outlined below who presented to the ED today with syncope and hypotension in the setting of gross hematuria. Pt originally presented to urology in June 2024 after being seen in the ED in May for hematuria. She underwent outpatient cystoscopy on 07/03/24 that showed left sided bladder tumor. 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 She had a spot urine showing elevated metanephrine, normetanephrine, and total metanephrine, however, 24 hour urine was unremarkable. 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 On 09/16/24, pt underwent cystoscopy with partial resection of large bladder tumor, estimated to be 50-60% debulked but not amenable to complete resection. She also had a percutaneous left nephrostomy tube placed by IR due to left ureteropelvic obstruction. Since being discharged from [facility], she developed recurrent issues with hematuria in her King catheter. Seen in the ED on 09/27 for this complaint and diagnosed with UTI - discharged on cefpodoxime. Urine culture from ED visit grew Klebsiella so antibiotic changed to ciprofloxacin on 09/29. However, pt has continued to have gross hematuria. Upon EMS arrival, pt had syncopized and was noted to have a BP of 60s/40s, so give 1L of crystalloid via pressure bag with improvement in BP and mentation. Yesterday, started feeling weak and tired. Today developed nausea but no vomiting. No fevers or chills. Admission Exam Per Admitting Provider GENERAL: Alert and oriented x3. NAD, on RA. HEENT: No pallor, no icterus. Pupils equal, round and reactive to light. Oral mucosa moist. NECK: No JVD, no neck masses. HEART: S1 and S2 heard. Regular rate and rhythm. No murmur, no gallop. RESPIRATORY SYSTEM: Normal AP diameter. No accessory muscle use. No wheezing, no crackles. ABDOMEN: Soft, bowel sounds present, lower belly mildly tender, no distention. CENTRAL NERVOUS SYSTEM: No facial droop. Speech is clear. Obeys simple commands. Moves extremities. EXTREMITIES: 1-2+ ble edema, no erythema seen. Three-way king cath in, light red urine in the bags noted. Left nephrostomy cath noted. Principal Diagnosis Bladder cancer s/p recent resection/debulking Complicated UTI Acute blood loss anemia Constipation Sclerotic bone lesion involving L2 vertebra Discharge Data Allergies Allergy/AdvReac Type Severity Reaction Status Date / Time Sulfa (Sulfonamide Allergy Severe face Verified 09/09/24 17:07 Antibiotics) tongue lips swelling,HEADACHE codeine AdvReac Intermediate N/V Verified 09/09/24 17:07 amoxicillin AdvReac Mild YEAST Verified 09/09/24 17:07 INFECTION clavulanic acid AdvReac Mild YEAST Verified 09/09/24 17:07 INFECTION nitrofurantoin AdvReac Unknown liver Verified 09/09/24 17:07 [From Macrobid] injury Consultations 10/01/24 14:17 ED Decision to Admit Stat Procedures Performed Operation Date: 10/04/24 12:00 Actual Procedures p TURBT, fulguration(Left) - Kade Zheng DO s Cystoscopy with Clot Evacuation, Left Ureteroscopy, Left Retrograde Pyelogram, Left Stent Insertion,(Left) - Kade Zheng DO Ordered Studies Laboratory Results WBC 6.57 K/ul (4.8-10.8) 10/06/24 06:50 RBC 2.80 M/uL (4.20-5.40) L 10/06/24 06:50 Hgb 8.2 g/dl (12.0-16.0) L 10/06/24 06:50 POC Hgb 6.8 g/dl (12.0-16.0) L* 10/01/24 11:30 Hct 24.9 % (37.0-47.0) L 10/06/24 06:50 POC Hct 20 % (37-47) L* 10/01/24 11:30 MCV 88.9 fL (80.0-100.0) 10/06/24 06:50 MCH 29.3 pg (25.0-34.0) 10/06/24 06:50 MCHC 32.9 g/dL (32.0-36.0) 10/06/24 06:50 RDW Std Deviation 44.8 fL (36.4-46.3) 10/06/24 06:50 RDW Coeff of Jennifer 13.6 % (11.5-14.5) 10/06/24 06:50 Plt Count 233 K/uL (130-400) 10/06/24 06:50 MPV 10.2 fL (9.4-12.4) 10/06/24 06:50 Immature Gran % (Auto) 0.4 % 10/02/24 05:55 Neut % (Auto) 72.7 % 10/02/24 05:55 Lymph % (Auto) 12.3 % 10/02/24 05:55 Grady % (Auto) 10.8 % 10/02/24 05:55 Eos % (Auto) 3.4 % 10/02/24 05:55 Baso % (Auto) 0.4 % 10/02/24 05:55 Neut # (Auto) 5.20 K/uL (1.40-6.50) 10/02/24 05:55 Lymph # (Auto) 0.88 K/uL (1.20-3.40) L 10/02/24 05:55 Grady # (Auto) 0.77 K/uL (0.11-0.59) H 10/02/24 05:55 Eos # (Auto) 0.24 K/uL (0.00-0.50) 10/02/24 05:55 Baso # (Auto) 0.03 K/uL (0.00-0.20) 10/02/24 05:55 Immature Gran # (Auto) 0.03 K/uL (0.01-0.20) 10/02/24 05:55 Polychromasia 1+ 10/01/24 11:39 PT 11.1 Seconds (9.0-12.0) 10/01/24 11:39 INR 1.0 (0.9-1.1) 10/01/24 11:39 VBG pH 7.39 (7.36-7.41) 10/01/24 11:39 VBG pCO2 40 mmHg (38-50) 10/01/24 11:39 VBG pO2 34 mmHg 10/01/24 11:39 VBG HCO3 24 mmol/L 10/01/24 11:39 VBG O2 Saturation < 60.0 % 10/01/24 11:39 VBG Base Excess -0.7 mEq/L 10/01/24 11:39 POC Sodium 126 mmol/L (135-144) L 10/01/24 11:30 Sodium 138 mmol/L (136-145) 10/07/24 05:32 POC Potassium 4.0 mmol/L (3.3-5.0) 10/01/24 11:30 Potassium 4.0 mmol/L (3.5-5.1) 10/07/24 05:32 POC Chloride 92 mmol/L (101-112) L 10/01/24 11:30 Chloride 101 mmol/L (98-107) 10/07/24 05:32 Carbon Dioxide 32 mmol/L (21-32) 10/07/24 05:32 POC Total CO2 22 mmol/L (24-31) L 10/01/24 11:30 Anion Gap 5 (3-11) 10/07/24 05:32 POC Anion Gap 17.0 mmol/L (16-25) 10/01/24 11:30 POC BUN 9 mg/dl (7-18) 10/01/24 11:30 BUN 17 mg/dl (6-23) 10/07/24 05:32 Creatinine 1.79 mg/dl (0.6-1.2) H 10/07/24 05:32 POC Creatinine 1.7 mg/dl (0.6-1.3) H 10/01/24 11:30 Est Cr Clr Drug Dosing 29.1 ml/min 10/07/24 05:32 eGFR 29.40 10/07/24 05:32 BUN/Creatinine Ratio 9.5 (10-20) L 10/07/24 05:32 Glucose 108 mg/dl (70-99(Fasting)) H 10/07/24 05:32 POC Glucose 128 mg/dl (70-99) H 10/07/24 11:19 POC Glucose (other) 119 mg/dl (70-99) H 10/01/24 11:30 Lactate 1.3 mmol/L (0.4-2.0) 10/01/24 21:16 Calcium 8.4 mg/dl (8.6-10.3) L 10/07/24 05:32 POC Ioniz Calcium Luz Maria 1.10 mmol/l (1.12-1.32) L 10/01/24 11:30 Magnesium 1.8 mg/dl (1.7-2.4) 10/04/24 06:37 Total Bilirubin 0.3 mg/dl (0.2-1.0) 10/01/24 11:39 Direct Bilirubin 0.0 mg/dl (0-0.2) 10/01/24 11:39 AST 11 U/L (13-39) L 10/01/24 11:39 ALT 9 U/L (7-52) 10/01/24 11:39 Alkaline Phosphatase 124 U/L (34-104) H 10/01/24 11:39 Troponin I High Sens 2.3 pg/ml (0-14) 10/01/24 11:39 Total Protein 5.7 gm/dl (6.0-8.3) L 10/01/24 11:39 Albumin 3.2 gm/dl (3.4-5.0) L 10/01/24 11:39 Procalcitonin < 0.02 ng/ml (0-0.5) 10/01/24 11:39 Urine Color Red 10/01/24 13:34 Urine Appearance Cloudy (Clear) A 10/01/24 13:34 Urine pH (4.5-7.5) 10/01/24 13:34 Ur Specific [place] 1.006 (1.000-1.030) 10/01/24 13:34 Urine Protein (Negative) 10/01/24 13:34 Urine Glucose (UA) (Negative) 10/01/24 13:34 Urine Ketones (Negative) 10/01/24 13:34 Urine Blood (Negative) 10/01/24 13:34 Urine Nitrite (Negative) 10/01/24 13:34 Urine Bilirubin (Negative) 10/01/24 13:34 Urine Urobilinogen (Negative) 10/01/24 13:34 Ur Leukocyte Esterase (Negative) 10/01/24 13:34 Urine RBC >20 /hpf (0-2) H 10/01/24 13:34 Urine WBC 21-50 /hpf (0-5) H 10/01/24 13:34 Ur Epithelial Cells 0-2 /hpf (0-2) 10/01/24 13:34 Urine Bacteria None Seen (None Seen) 10/01/24 13:34 Blood Type A Positive 10/04/24 06:47 Antibody Screen NEGATIVE 10/04/24 06:47 Crossmatch See Detail 10/04/24 06:47 Impressions Chest X-Ray 10/01/24 11:33 XR chest 1V portable CLINICAL HISTORY: Sepsis COMPARISON STUDY: 09/09/2024 FINDINGS: Single view portable chest demonstrates no acute cardiopulmonary process. There is no airspace opacity or pleural effusion. The heart and pulmonary vascularity are unremarkable for technique. IMPRESSION: No acute process ACT 112: Negative or not required by law. Electronically signed by: Daisy Lacy M.D. 10/01/2024 11:54 AM Abdomen/Pelvis CT 10/01/24 11:[address] WITH IV CONTRAST CT DOSE: 4022.87 HISTORY: Gross hematuria syncope, metstatic bladder ca TECHNIQUE: Multiaxial CT images of the abdomen and pelvis were performed following the IV administration of 94 cc of Optiray, A dose lowering technique was utilized adhering to the principles of ALARA. COMPARISON STUDY: 09/27/2024 FINDINGS: The only significant interval change since the prior study of 4 days ago as a presence of a large amount of blood/blood clot within the urinary bladder. There is a King catheter in place. The echogenic areas present in the bladder as well. Elsewhere in the urinary tract, there is a left percutaneous nephrostomy in place. There is mild pyelocaliectasis in the right kidney with no obstructive component identified. There is a generalized hepatic steatosis. The gallbladder and bile ducts are unremarkable. The pancreas, adrenal glands, and spleen demonstrate no significant lesions. There is no aortic aneurysm or periaortic adenopathy. No bowel obstruction or free air. No ascites. In the pelvis, there is no mass or adenopathy. There is no fluid in the cul-de-sac. The appendix is not identified. Sclerotic bone lesion involving the L2 vertebral body is once again noted. Lung bases unchanged demonstrating a trace left pleural effusion. IMPRESSION: Large area of hyperattenuating tissue has developed within the urinary bladder since the prior study. This is consistent with a large blood clot from the patient's known bladder cancer. ACT 112: Negative or not required by law. The above report was generated using voice recognition software. It may contain grammatical, syntax or spelling errors. Electronically signed by: Daisy Lacy M.D. 10/01/2024 1:[address] 10/01/24 11:[address] WITH CONTRAST CT DOSE: 4022.87 mGy.cm HISTORY: syncope, metstatic bladder ca TECHNIQUE: Multiaxial CT images of the chest were performed following the IV administration of 90 cc of Optiray. A dose lowering technique was utilized adhering to the principles of ALARA. COMPARISON STUDY: Chest x-ray earlier today FINDINGS: There is moderate emphysema. There is a trace left pleural effusion. There is no pulmonary consolidation. No pneumothorax. There is a small area of groundglass opacity right middle lobe series 9 image 187. There are a few scattered small pulmonary nodules, largest a subpleural nodular density lateral left upper lobe image 165 measuring 1.1 cm and also anterior medial left upper lobe measures 6 mm image 116 no enlarged adenopathy. No pericardial effusion. There are coronary artery and aortic calcifications. No acute osseous findings.. IMPRESSION: 1. No lobar pneumonia. No pneumothorax. 2. Moderate emphysema. 3. A few pulmonary nodules for which follow-up chest CT recommended in 3-6 months. ACT 112: Positive. There are findings on this exam that require communication between the performing entity and the patient following Patient Test Result Information Act ([place] Act 112) guidelines. Electronically signed by: Isma Shields M.D. 10/01/2024 1:[address] 10/01/24 11:39 CT head/brain wo con CLINICAL HISTORY: syncope, metstatic bladder ca. TECHNIQUE: Multiple axial CT images of the head were obtained without contrast. Sagittal and coronal reconstructions were done. A dose lowering technique was utilized adhering to the principles of ALARA. COMPARISON: 03/19/2024 FINDINGS: The CT findings are stable. There is no intra-axial or extra-axial fluid collection, hemorrhage, or mass. A small left lacunar infarct is redemonstrated. There is no midline shift. There is no focal attenuation abnormality appreciated elsewhere. The bone windows are negative. IMPRESSION: Stable exam demonstrating no acute intracranial process. Sensitivity of a noncontrast study is limited with regard to metastatic disease. ACT 112: Negative or not required by law. The above report was generated using voice recognition software. It may contain grammatical, syntax or spelling errors. Electronically signed by: Daisy Lacy M.D. 10/01/2024 12:52 PM Retrograde Pyelogram 10/04/24 00:00 FL retrograde includes kub CLINICAL HISTORY: RETROGRADE COMPARISON STUDY: None FLUOROSCOPY TIME: 81 seconds FLUOROSCOPY IMAGES: 3 EXPOSURE DOSE: 37 mGy FINDINGS: Fluoroscopy was provided for urologic procedure. IMPRESSION: Intraoperative fluoroscopy. ACT 112: Negative or not required by law. Electronically signed by: Isma Shields M.D. 10/05/2024 8:08 AM KUB X-Ray 10/05/24 10:42 KUB HISTORY: constipation COMPARISON STUDY: 04/08/2011 FINDINGS: There are interval left nephrostomy tube and left ureteral stent. There is moderate retained stool. No bowel obstruction seen. No gross free air. Stable low pelvic phleboliths. There are bilateral hip prostheses. IMPRESSION: Moderate retained stool. ACT 112: Negative or not required by law. The above report was generated using voice recognition software. It may contain grammatical, syntax or spelling errors. Electronically signed by: Isma Shields M.D. 10/05/2024 12:08 PM Hospital Course (1) Acute blood loss anemia: (2) Gross hematuria: (3) Bladder cancer: (4) CKD (chronic kidney disease), stage III: (5) Diabetes mellitus, type II: (6) COPD (chronic obstructive pulmonary disease): (7) Dyslipidemia: Plan Patient is a 73 y/o female with bladder cancer metastatic to lumbar spine, DM2, COPD, CKD3, PLMD, CAD w/ prior AR, nocturnal hypoxemia, hypothyroidism, HTN, anxiety, and other history as outlined below who presented to the ED today with syncope and hypotension in the setting of gross hematuria. Pt underwent resection/debulking of bladder tumor on 09/16, developed hematuria about four days ago, had King replaced two days ago due to urinary retention. Diagnosed with UTI in the ED on 09/27, started on cefpodoxime but this was changed to ciprofloxacin two days ago based on urine culture results. She presented to the ED today with new weakness, fatigue, and syncopal event - found to have acute blood loss anemia in the setting of hematuria with almost 4 g drop in hemoglobin. Pt was referred for admission for further management of hematuria and anemia. Acute blood loss anemia Gross hematuria - suspect related to recent procedure Bladder cancer s/p recent resection/debulking Complicated UTI Nephrostomy related UTI causing gross hematuria --CT ABD: Large area of hyperattenuating tissue has developed within the urinary bladder since the prior study. This is consistent with a large blood clot from the patient's known bladder cancer. --S/P 3 units PRBCs --S/P cystoscopy with clot evacuation, TURBT--large fulguration of multiple bleeding bladder ulcers and bleeding varicosities of the bladder neck. Left ureteral dilatation, retrograde pyelogram with left stent placement on 10/04/24 by --Aspirin on hold --Urine culture: Grew Enterococcus faecalis --Blood cultures negative --Empirically on Levaquin, daptomycin>> transition to ampicillin Day # 5 Continuous bladder irrigation was discontinued Appreciate urology input Monitor H&H and transfuse as needed Patient has follow-up with medical oncology scheduled as outpatient Successful voiding trial after catheter removal Hemoglobin 8.2 today Needs follow-up with oncology on discharge Plan to discharge home today Advised to follow-up with urology on discharge Plan to transition to oral antibiotics to complete the course Constipation --KUB:Moderate retained stool. Continue bowel regimen Minimize opiates as able Encouraged to ambulate Resolved Monitor Hypomagnesemia Replete and monitor Diabetes mellitus - type 2 Continue insulin per protocol Monitor blood glucose levels Acute on chronic hyponatremia Sodium levels improved Continue salt tablets Sodium levels improved Lower back pain Sclerotic bone lesion involving L2 vertebra noted on CT Likely metastatic disease from bladder cancer Possible plan for radiation therapy as outpatient per family Monitor Not interested in rehab placement Hypertension - Chronic, continue home meds Monitor BP Hypothyroid - Chronic, continue levothyroxine Anxiety - Continue outpatient meds ADRI Nocturnal hypoxia Continue supplemental oxygen and CPAP at bedtime Pulmonary nodules Incidental finding on CT Will recommend to get repeat CT in 3 to 6 months for further evaluation Morbid obesity BMI 43 DVT Px: SCDs re: Hematuria Disposition Home with home health today Total Time Total Time Spent Total Time Spent (In Minutes): 53 minutes Discharge Plan Discharge Items Patient Disposition: Home - Home Health Services Reason For Visit: ACUTE BLOOD LOSS ANEMIA, HEMATURIA Discharge Diagnosis: Bladder cancer s/p recent resection/debulking Complicated UTI Acute blood loss anemia Constipation Sclerotic bone lesion involving L2 vertebra Activity: Per Instructions section Exercise/Sports: Gradually increase as tolerated Non-emergency contact: Primary Care Provider, Oncologist and Urologist Call non-emergency contact if: you have any medication questions, your symptoms worsen, your pain is concerning for you and you have a fever Follow-up/Referrals: Jamal Vicente MD [Physician] - (The office will call you with a follow up appointment.) Patti Posadas MD [Primary Care Provider] - (Date & Time 10/13/2024 11:20 AM Provider: Patti Posadas MD [facility] ) Diet: Carb Consistent or DM2 Diet Texture: Easy to Chew Addtl Attending Provider Instructions: Follow-up with your primary care physician on 10/13/2024 11:20 AM Follow-up with the urologist Dr. Vicente as advised Follow-up with your oncologist as scheduled -- Complete the antibiotic course for urinary tract infection as advised. Seek immediate medical attention if your symptoms reoccur or worsen Please review medication list provided on discharge for any medication changes as instructed. Please call if you have any questions or problems. You can reach a [facility] hospitalist on duty at [facility] 24 hours a day by calling [phone] Pending Studies at Discharge: No Stand-Alone Forms: My [facility], Smoking Cessation Medications and DC Order Prescriptions: New docusate sodium 100 mg Capsule 100 mg PO BID PRN (Reason: Constipation) Qty: 30 0RF amoxicillin 500 mg tablet 500 mg PO Q8H 3 Days Qty: 9 0RF Advanced Probiotic 625 mg (10 billion cell) Capsule 1 cap PO DAILY Qty: 7 0RF Continued perphenazine 2 mg tablet 6 mg PO HS lorazepam 0.5 mg tablet 0.5 mg PO HS PRN (Reason: ANXIETY/SLEEP) diclofenac sodium [Arthritis Pain (diclofenac)] 1 % gel 2 g topical QID PRN (Reason: Pain) vitamin E (dl, acetate) 180 mg (400 unit) capsule 180 mg PO BID turmeric-turmeric root extract 450-50 mg capsule 1 cap PO DAILY levothyroxine 150 mcg tablet 150 mcg PO DAILYBB Qty: 30 5RF citalopram [Celexa] 10 mg tablet 10 mg PO DAILY Rx Instructions: TOTAL DOSE 30 MG--TAKES WITH 20 MG TAB. garlic 1,000 mg Capsule 1,000 mg PO QAM metformin 500 mg tablet 500 mg PO BIDM albuterol sulfate 2.5 mg /3 mL (0.083 %) solution for nebulization 2.5 mg continuous nebulization Q4H PRN (Reason: Shortness Of Breath Or Wheezing) atorvastatin 10 mg tablet 10 mg PO QAM Hold Instructions: Resume on 07/22/24. Hold statin until liver function normalizes, follow up with your PCP for when to resume. tizanidine 4 mg tablet 4 mg PO Q8H PRN (Reason: muscle spasms) famotidine 20 mg tablet 20 mg PO BID mirtazapine 30 mg tablet 30 mg PO HS montelukast 10 mg tablet 10 mg PO DAILY vitamin B complex Capsule 1 cap PO DAILY cetirizine [Allergy Relief (cetirizine)] 10 mg tablet 10 mg PO QAM doxepin 25 mg capsule 25 mg PO QAM citalopram 20 mg tablet 20 mg PO DAILY Rx Instructions: TOTAL DOSE 30 MG--TAKES WITH 10 MG TAB. albuterol sulfate [Ventolin HFA] 90 mcg/actuation HFA aerosol inhaler 2 puff INHALATION Q6H PRN (Reason: Shortness Of Breath Or Wheezing) magnesium oxide 400 mg magnesium Tablet 400 mg PO DAILY Rx Instructions: Unable to verify OTC meds at this date/time. sodium chloride 1,000 mg tablet,soluble 500 mg PO TID Qty: 30 0RF Rx Instructions: Take with Prazocin metoprolol succinate 25 mg tablet extended release 24 hr 12.5 mg PO BID Rx Instructions: does half tab bid triamcinolone acetonide 0.5 % cream 1 applic TOPICAL BID Rx Instructions: 0.5 gram = 1 application aspirin 81 mg Tablet,Delayed Release (Dr/Ec) 81 mg PO DAILY olopatadine 0.2 % Drops 1 drp OPHTHALMIC (EYE) QAM prazosin 5 mg capsule 10 mg PO BID oxycodone-acetaminophen [Percocet] 5-325 mg tablet 1 tab PO BID PRN (Reason: pain) Discontinued cefpodoxime 200 mg tablet 200 mg PO DAILY 10 Days Qty: 10 0RF Rx Instructions: Start Date 09/27/24 x10 day supply. Must administer with a meal/food ciprofloxacin HCl 500 mg tablet 500 mg PO DAILY Rx Instructions: Start Date 09/30/24 x7 day supply Hold tizanidine while on this medication Discharge Orders: Discharge Order (Routine); Ordered 10/07/24 Ordered By: Drew Enamorado Admission Data Admit Date/Time: 10/01/24 16:05 Attending Provider: Drew Enamorado Admit Provider: Melba Morales Primary Care Provider: Patti Posadas Other Providers: [facility]; Melba Morales
[2024-10-08] MEDS ORDERED: ADVANCED PROBIOTIC 625 MG CAPSULE PO SCH (09:00)
== END 2024-10-07 14:07 | disposition home health service (06) | DRG 656 ==
LOC: ED 11:20 → SUATTDRO 16:05 → 2S 16:05 → 3N 10-06 16:07